=== PATIENT | male | born 1930 | race African-American/Black ===

== ENCOUNTER 2016-08-01 02:47 | Inpatient (IN) | payer MEDICARE, OTHER ==
[~2016-08-01] VITALS: Ht 175.3 cm; Wt 137.4 kg
[~2016-08-01 02:47] MED LIST: AMLO10TA2 PO; AMLO10TA4 PO; ASPI-253 PO; ATOR20TA PO; BRIN10DR OP; BUME1TAB PO; CYCL10TA2 PO; DUTA0.5C PO; EZET10TA3 PO; FINA5TAB4 PO; FURO-68 PO; FURO-69 PO; GABA-585 PO; INSU100C4 SQ; INSU100I11 SQ; INSU100V8 SQ; ISOS60TA PO; LISI-334 PO; LISI2.5T PO; METO100T11 PO; METO100T2 PO; METO10TA81 PO; METO25TA9 PO; METO50TA10 PO; NIAC500T PO; NITR0.4T6 SL; PANT20TA3 PO; PANT40TA5 PO; PRIM50TA PO; SAXA1TBM3 PO; SITA50TA PO; SPIR25TA3 PO; TAMS0.4C97 PO; TIMO5DRO5 OP; TRAV2.5D2 OP; TRAV5DRO EACHEYE
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
[2016-08-01] MEDS ORDERED: ASPIRIN 81 MG TAB.CHEW PO ONE (03:15)
[2016-08-01] MEDS ORDERED: NITROGLYCERIN SUBLINGUAL 0.4 MG BOTTLE OF 25. SL PRN (03:15)
[2016-08-01 03:20] LABS: BASO % 0 % (0-3); EOS % 1 % (0-3); HEMATOCRIT 38.8 % (39.0-53.0); HEMOGLOBIN 12.3 g/dL (13.0-17.5); LYMPH # 1.3 x10^3/uL (1.0-4.8); LYMPH % 13 % (24-48); MEAN CORPUSCULAR HEMOGLOBIN 32 pg (25-35); MEAN CORPUSCULAR HGB CONC 32 g/dL (31-37); MEAN CORPUSCULAR VOLUME 102 fL (79-100); MONO % 14 % (0-9); NEUT % 72 % (31-73); PLATELET COUNT 114 x10^3/uL (140-400); RED BLOOD COUNT 3.81 x10^6/uL (4.30-5.70); RED CELL DISTRIBUTION WIDTH 14.7 % (11.5-14.5); WHITE BLOOD COUNT 10.2 x10^3/uL (4.0-11.0)
[2016-08-01 03:37] LABS: CALCIUM 8.6 mg/dL (8.5-10.1); CREATININE 1.8 mg/dL (0.7-1.3); GFR 43.6
[2016-08-01] MEDS ORDERED: ACETAMINOPHEN 325 MG TABLET. PO PRN (04:30)
[2016-08-01] MEDS ORDERED: ONDANSETRON PF 4 MG/2 ML VIAL. IV PRN (04:30)
[2016-08-01] MEDS ORDERED: MORPHINE SULFATE 2 MG/ML DISP.SYRIN. IV PRN (04:30)
[2016-08-01] MEDS ORDERED: FUROSEMIDE 40 MG/4 ML VIAL IVP ONE (04:45)
[2016-08-01 06:37] VITALS: BP 144/77
--- NOTE | 2016-08-01 07:23 | RAD ---
Portable chest, 08/01/2016: History: Chest pain, shortness of breath Comparison is made to a study from 04/29/2016. A left-sided transvenous pacing device remains in place with 2 leads extending into the right heart. The heart is mildly enlarged. The pulmonary vascularity is normal. No pulmonary infiltrates are seen. There is no evidence of pleural fluid. IMPRESSION: 1. Mild cardiomegaly. 2. No acute abnormality is detected.
[2016-08-01 07:45] VITALS: BP 145/64
--- NOTE | 2016-08-01 08:18 | EKG ---
[facility] [address] [place] [address] Test Date: 2016-08-01 Test Time: 02:54:03 Pat Name: JAZMIN YOUNG Department: Room: Gender: M Global Category Manager: : [id number] Requested By: BERNIE WEBER Order Number: [id number] Reading MD: Measurements Intervals [place] Rate: 72 P: IL: QRS: 43 QRSD: 88 T: 50 QT: 376 QTc: 413 Interpretive Statements IRREGULAR RHYTHM, NO P-WAVE FOUND LOW LIMB LEAD VOLTAGE QRS(T) CONTOUR ABNORMALITY CONSIDER ANTEROLATERAL MYOCARDIAL DAMAGE POSSIBLY ABNORMAL ECG RI6.01 No previous ECG available for comparison
--- NOTE | 2016-08-01 09:26 | PDOC2 ---
CARDIAC CONSULT DATE OF CONSULT Date of Consult DATE: 08/01/16 TIME: 09:25 REASON FOR CONSULT Reason for Consult: CHF, chest pain, SOB REFERRING PHYSICIAN Referring Physician: Dr. Jaydon Roberson SOURCE Source: Chart review HISTORY OF PRESENT ILLNESS HISTORY OF PRESENT ILLNESS 86 year old male with a 2 day history of constant substernal chest pain radiating to the right shoulder and diminished with ASA and SL NTG given in the ER. Chronic dyspnea with change recently, though unable to qualitate change. Chest pain associated with dizziness, however, did not contact usual injury/safety hazard assessment, Dr. Fierro, who he has reportedly seen in the last week. Also with non-productive cough and body aches; unclear regarding sick exposures. EKG without acute changes, extremely poor baseline and probably SR. Troponin levels not consistent with acute VT and CXR without CHF. NT-proBNP elevated to 1755 in the setting of CKD with Cr of 1.8. 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 Endocrine: Diabetes (type II) Dermatology: No pertinent hx PAST SURGICAL HISTORY Past Surgical History: Pacemaker (brand unknown), Cholecystectomy, Other (left rib) FAMILY HISTORY Family History: Cancer, Heart Disease SOCIAL HISTORY Smoke: No ALCOHOL: none Drugs: None CURRENT MEDICATIONS CURRENT MEDICATIONS Current Medications Medications (Trade) Dose Ordered Sig/Heavenly Route PRN Reason Start Time Stop Time Status Last Admin Dose Admin Aspirin (Children'S Aspirin) 324 mg 1X ONCE PO 08/01/16 03:15 08/01/16 03:16 DC 08/01/16 03:16 Nitroglycerin (Nitrostat) 0.4 mg PRN Q5MIN PRN SL CP RATING > 1/10 08/01/16 03:15 08/02/16 03:14 08/01/16 03:17 Furosemide (Lasix) 40 mg 1X ONCE IVP 08/01/16 04:45 08/01/16 04:46 DC 08/01/16 05:54 ALLERGIES ALLERGIES: Coded Allergies: No Known Drug Allergies (Unverified , 08/02/13) ROS Review of System 14 point review with pertinent positives in HPI PHYSICAL EXAM General: Alert, Oriented X3, Cooperative, No acute distress HEENT: Atraumatic, PERRLA Lungs: Clear to auscultation Heart: Regular rate, Normal S1, Normal S2, Other (1/6 SAUL; PPM left pectoral; tele: ) Abdomen: Normal bowel sounds, Soft, No tenderness, Other (obese abdomen) Extremities: No edema, Normal pulses Skin: No rashes Neuro: Normal gait Psych/Mental Status: Mental status NL, Mood NL MUSCULOSKELETAL: No deformity VITALS VITALS Vital Signs Date Time Temp Pulse Resp B/P Pulse Ox O2 Delivery O2 Flow Rate FiO2 08/01/16 07:45 97.3 71 18 145/64 97 Nasal Cannula 2.0 97.3 LABS Lab: Laboratory Tests Test 08/01/16 03:04 08/01/16 08:08 White Blood Count 10.2x10^3/uL (4.0-11.0) Red Blood Count 3.81x10^6/uL (4.30-5.70) Hemoglobin 12.3g/dL (13.0-17.5) Hematocrit 38.8% (39.0-53.0) Mean Corpuscular Volume 102fL (79-100) Mean Corpuscular Hemoglobin 32pg (25-35) Mean Corpuscular Hemoglobin Concent 32g/dL (31-37) Red Cell Distribution Width 14.7% (11.5-14.5) Platelet Count 114x10^3/uL (140-400) Neutrophils (%) (Auto) 72% (31-73) Lymphocytes (%) (Auto) 13% (24-48) Monocytes (%) (Auto) 14% (0-9) Eosinophils (%) (Auto) 1% (0-3) Basophils (%) (Auto) 0% (0-3) Neutrophils # (Auto) 7.3x10^3uL (1.8-7.7) Lymphocytes # (Auto) 1.3x10^3/uL (1.0-4.8) Monocytes # (Auto) 1.5x10^3/uL (0.0-1.1) Eosinophils # (Auto) 0.1x10^3/uL (0.0-0.7) Basophils # (Auto) 0.0x10^3/uL (0.0-0.2) Sodium Level 147mmol/L (136-145) Potassium Level 5.0mmol/L (3.5-5.1) Chloride Level 108mmol/L (98-107) Carbon Dioxide Level 32mmol/L (21-32) Anion Gap 7 (6-14) Blood Urea Nitrogen 37mg/dL (8-26) Creatinine 1.8mg/dL (0.7-1.3) Estimated GFR (Cockcroft-Gault) 43.6 Glucose Level 166mg/dL (70-99) Calcium Level 8.6mg/dL (8.5-10.1) Troponin I Quantitative 0.024ng/mL (0.000-0.055) SX-Cyy-Q-Type Natriuretic Peptide 1755pg/mL (0-449) Glucose (Fingerstick) 183mg/dL (70-99) IMAGES IMAGES CXR without evidence of CHF EKG EKG no acute changes -- poor baseline ECHOCARDIOGRAM ECHOCARDIOGRAM 12/22/2015: TTE: Technically difficult study. Lumason echo contrast used. The left ventricular systolic function is normal. The ejection fraction is estimated at 60%. There is normal LV segmental wall motion. The left atrium is moderately dilated. Mild mitral regurgitation. Trace to mild tricuspid regurgitation. There is mild pulmonary hypertension. The PA pressure was estimated at 41 mmHg. There is no evidence of significant pericardial effusion. STRESS TEST STRESS TEST 01/26/2015: Regadenoson MPI 1. Regadenoson cardioisotope stress test showed small lateral wall infarct without any ischemia. 2. Normal left ventricular systolic function with ejection fraction calculated at 56%. 3. Low risk for cardiovascular events. ASSESSMENT/PLAN ASSESSMENT/PLAN 1. chest pain atypical - ? GERD or related to cough - will try GI cocktail EKG without acute changes and troponin levels not consistent with AMI echo done 12/2015 with preserved LV function and mild MR records requested from [facility] - Sri hold on stress testing until records obtained - pt unsure if MPI done @ [facility] in the last year also holding until influenza swab returns 2. chronic diastolic CHF CXR without CHF no crackles or LE edema NT-proBNP only 1755 (needs to be > 1800 to be diagnostic) and less than it was 04/2016 given furosemide IV In the ER resume home meds 3. PPM brand unknown records requested from [facility] 4. HTN accelerated POA, then dropped to 68 _?? resume home meds and monitor BP 5. HLD LDLs = 58 12/30/2015 continue statin therapy 6. DM, II per primary service 7. CKD, stage III-IV per primary service 8. DEYSI continue home CPAP 9. morbid obesity BMI 45 Problems: EDER KAN ACCOUNTS ADMINISTRATOR Aug 01, 2016 09:26
[2016-08-01] MEDS ORDERED: LIDO:MAALOX:DONNATAL 1:1:1 15 ML SINGLE DOSE SWSW ONE (10:00)
--- NOTE | 2016-08-01 10:42 | PDOC1 ---
History and Physical Date of Admission Date of Admission DATE: 08/01/16 TIME: 10:34 Identification/Chief Complaint Chief Complaint chest pain Source Source: Chart review, Patient History of Present Illness History of Present Illness Mr. Strickland, 86 year old male admit from ER, New sternal chest pain. pain better with ASA and nitro, but now pain is reproducible, Chronic dyspnea with change recently, though unable to qualitate change. Chest pain associated with dizziness, however, did not contact usual equipment operating engineer, Dr. Fierro, who he has reportedly seen in the last week. Also with non-productive cough and body aches; on 2 liters NC, breathing OK, BNP 1800 Past Medical History Cardiovascular: CAD (with previous PCI/stents to unknown targets), CHF ( diastolic), HTN, Hyperlipidemia, Other (PPM - brand unkown and diagnosis for implantation unknown) Pulmonary: COPD, Other (obesity hypoventilation syndrome) CENTRAL NERVOUS SYSTEM: Dementia, Vertigo GI: GERD, Other (morbid obesity with BMI of 45) Heme/Onc: Anemia NOS Hepatobiliary: No pertinent hx Psych: No pertinent hx Musculoskeletal: Osteoarthritis Rheumatologic: No pertinent hx Infectious disease: No pertinent hx ENT: No pertinent hx Renal/: 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 Endocrine: Diabetes (type II) Dermatology: No pertinent hx Past Surgical History Past Surgical History: Pacemaker (brand unknown), Cholecystectomy, Other (left rib) Family History Family History: Cancer, Heart Disease Social History Smoke: No ALCOHOL: none Drugs: None Current Problem List Problem List Problems Medical Problems: (1) Chest pain Status: Acute (2) Chest pain Status: Acute (3) CHF (congestive heart failure) Status: Acute (4) SOB (shortness of breath) Status: Acute Problems: Current Medications Current Medications Current Medications Aspirin (Children'S Aspirin) 324 mg 1X ONCE PO Last administered on 08/01/16 03:16; Start 08/01/16 at 03:15; Stop 08/01/16 at 03:16; Status DC Nitroglycerin (Nitrostat) 0.4 mg PRN Q5MIN PRN SL CP RATING > 1/10 Last administered on 08/01/16 03:17; Start 08/01/16 at 03:15; Stop 08/02/16 at 03:14 Furosemide (Lasix) 40 mg 1X ONCE IVP Last administered on 08/01/16t 05:54; Start 08/01/16 at 04:45; Stop 08/01/16 at 04:46; Status DC Ondansetron HCl (Zofran) 4 mg PRN Q8HRS PRN IV NAUSEA/VOMITING; Start 08/01/16 at 04:30; Stop 08/02/16 at 04:29 Morphine Sulfate 2 mg PRN Q2HR PRN IV PAIN; Start 08/01/16 at 04:30; Stop 08/02 at 04:29 Acetaminophen (Tylenol) 650 mg PRN Q4HRS PRN PO FEVER; Start 08/01/16 at 04:30 ; Stop 08/02/16 at 04:29 Multi-Ingredient Mouthwash/Gargle (Gi Cocktail Single Dose) 15 ml 1X ONCE SWSW ; Start 08/01/16 at 10:00; Stop 08/01/16 at 10:01; Status DC Active Scripts Active Amlodipine Besylate 10 Mg Tablet 10 Mg PO DAILY Reported Bumetanide 1 Mg Tablet 1 Tab PO BID Gabapentin 100 Mg Capsule 100 Mg PO TID Januvia (Sitagliptin Phosphate) 50 Mg Tablet 25 Mg PO DAILY Metoprolol Tartrate 100 Mg Tablet 1 Tab PO BID Niaspan (Niacin) 500 Mg Tab.er.24h 100 Mg PO HS Travatan Z (Travoprost) 5 Ml Drops 1 Drop EACHEYE QHS Humalog (Insulin Lispro) 100 Unit/1 Ml Insuln.pen 35 Unit SQ TIDAC Lantus (Insulin Glargine,Hum.rec.anlog) 100 Unit/1 Ml Vial 45 Unit SQ HS Primidone 50 Mg Tablet 200 Mg PO HS Pantoprazole Sodium 40 Mg Tablet.dr 1 Tab PO DAILY Lisinopril 20 Mg Tablet 1 Tab PO DAILY Finasteride 5 Mg Tablet 1 Tab PO DAILY Lipitor (Atorvastatin Calcium) 20 Mg Tablet 20 Mg PO Azopt (Brinzolamide) 10 Ml Drops.susp 10 Ml OP BID PRN Flomax (Tamsulosin Hcl) 0.4 Mg Cap.er.24h 0.4 Mg PO Zetia (Ezetimibe) 10 Mg Tablet 10 Mg PO Ecotrin (Aspirin) 81 Mg Tablet.dr 81 Mg PO Allergies Allergies: Coded Allergies: No Known Drug Allergies (Unverified , 08/02/13) ROS General: No: Appetite, Chills, Fatigue, Malaise, Night Sweats, Other PSYCHOLOGICAL ROS: No: Anxiety, Behavioral Disorder, Concentration difficultie , Decreased libido, Depression, Disorientation, Hallucinations, Hostility, Irritablity, Memory difficulties, Mood Swings, Obsessive thoughts, Other, Physical abuse, Sexual abuse, Sleep disturbances, Suicidal ideation Eyes: No Blurry vision, No Decreased vision, No Double vision, No Dry eyes, No Excessive tearing, No Eye Pain, No Itchy Eyes, No Loss of vision, No Other, No Photophobia, No Scotomata, No Uses contacts, No Uses glasses HEENT: No: Epistaxis, Heacaches, Hearing change, Nasal congestion, Nasal discharge, Oral lesions, Other, Sinus pain, Sneezing, Snoring, Sore Throat, Tinnitus, Vertigo, Visual Changes, Vocal changes ALLERGY AND IMMUNOLOGY: No: Hives, Insect Bite Sensitivity, Itchy/Watery Eyes, Nasal Congestion, Other, Post Nasal Drip, Seasonal Allergies ENDOCRINE: No: Breast Changes, Galactorrhea, Hair Pattern Changes, Hot Flashes , Malaise/lethargy, Mood Swings, Other, Palpitations, Polydipsia/polyuria, Skin Changes, Temperature Intolerance, Unexpected Weight Changes Respiratory: No: Cough, Hemoptysis, Orthopnea, Other, Pleuritic Pain, SOB with excertion, Shortness of breath, Sputum Changes, Stridor, Tachypnea, Wheezing Gastrointestinal: Yes Nausea, No Abdominal Pain, No Constipation, No Diarrhea, No Hematochezia, No Melena, No Other, No Vomiting Genitourinary: No , No , No , No , No , No , No , No Discharge, No Dysuria, No Flank Pain, No Frequency, No Hematuria, No Incontinence, No Other, No Pain, No Retention, No Urgency Musculoskeletal: Yes Gait Disturbance, Yes Joint Pain, Yes Joint Stiffness, Yes Joint Swelling, No Muscle Pain, No Muscular Weakness, No Other, No Pain In:, No Swelling In: Neurological: No Behavorial Changes, No Bowel/Bladder ControlChng, No Confusion , No Dizziness, No Gait Disturbance, No Headaches, No Impaired Coord/balance, No Memory Loss, No Numbness/Tingling, No Other, No Seizures, No Speech Problems , No Tremors, No Visual Changes, No Weakness Skin: No Acne, No Dry Skin, No Eczema, No Hair Changes, No Lumps, No Mole Changes, No Mottling, No Nail Changes, No Other, No Pruritus, No Rash, No Skin Lesion Changes Physical Exam General: Alert, Oriented X3, Cooperative, mild distress HEENT: Atraumatic, PERRLA, EOMI Lungs: Clear to auscultation, Normal air movement, Other (tender to palp, mid right sternum) Abdomen: Normal bowel sounds Rectal Exam: not examined Extremities: No clubbing, No cyanosis Skin: No rashes Neuro: Normal gait, Normal speech, Sensation intact Psych/Mental Status: Mental status NL, Mood NL Vitals Vitals Vital Signs Date Time Temp Pulse Resp B/P Pulse Ox O2 Delivery O2 Flow Rate FiO2 08/01/16 07:45 97.3 71 18 145/64 97 Nasal Cannula 2.0 97.3 Labs Labs Laboratory Tests Test 08/01/16 03:04 08/01/16 08:08 White Blood Count 10.2x10^3/uL (4.0-11.0) Red Blood Count 3.81x10^6/uL (4.30-5.70) Hemoglobin 12.3g/dL (13.0-17.5) Hematocrit 38.8% (39.0-53.0) Mean Corpuscular Volume 102fL (79-100) Mean Corpuscular Hemoglobin 32pg (25-35) Mean Corpuscular Hemoglobin Concent 32g/dL (31-37) Red Cell Distribution Width 14.7% (11.5-14.5) Platelet Count 114x10^3/uL (140-400) Neutrophils (%) (Auto) 72% (31-73) Lymphocytes (%) (Auto) 13% (24-48) Monocytes (%) (Auto) 14% (0-9) Eosinophils (%) (Auto) 1% (0-3) Basophils (%) (Auto) 0% (0-3) Neutrophils # (Auto) 7.3x10^3uL (1.8-7.7) Lymphocytes # (Auto) 1.3x10^3/uL (1.0-4.8) Monocytes # (Auto) 1.5x10^3/uL (0.0-1.1) Eosinophils # (Auto) 0.1x10^3/uL (0.0-0.7) Basophils # (Auto) 0.0x10^3/uL (0.0-0.2) Sodium Level 147mmol/L (136-145) Potassium Level 5.0mmol/L (3.5-5.1) Chloride Level 108mmol/L (98-107) Carbon Dioxide Level 32mmol/L (21-32) Anion Gap 7 (6-14) Blood Urea Nitrogen 37mg/dL (8-26) Creatinine 1.8mg/dL (0.7-1.3) Estimated GFR (Cockcroft-Gault) 43.6 Glucose Level 166mg/dL (70-99) Calcium Level 8.6mg/dL (8.5-10.1) Troponin I Quantitative 0.024ng/mL (0.000-0.055) UK-Tjg-A-Type Natriuretic Peptide 1755pg/mL (0-449) Glucose (Fingerstick) 183mg/dL (70-99) Laboratory Tests Test 08/01/16 03:04 08/01/16 08:08 White Blood Count 10.2x10^3/uL (4.0-11.0) Red Blood Count 3.81x10^6/uL (4.30-5.70) Hemoglobin 12.3g/dL (13.0-17.5) Hematocrit 38.8% (39.0-53.0) Mean Corpuscular Volume 102fL (79-100) Mean Corpuscular Hemoglobin 32pg (25-35) Mean Corpuscular Hemoglobin Concent 32g/dL (31-37) Red Cell Distribution Width 14.7% (11.5-14.5) Platelet Count 114x10^3/uL (140-400) Neutrophils (%) (Auto) 72% (31-73) Lymphocytes (%) (Auto) 13% (24-48) Monocytes (%) (Auto) 14% (0-9) Eosinophils (%) (Auto) 1% (0-3) Basophils (%) (Auto) 0% (0-3) Neutrophils # (Auto) 7.3x10^3uL (1.8-7.7) Lymphocytes # (Auto) 1.3x10^3/uL (1.0-4.8) Monocytes # (Auto) 1.5x10^3/uL (0.0-1.1) Eosinophils # (Auto) 0.1x10^3/uL (0.0-0.7) Basophils # (Auto) 0.0x10^3/uL (0.0-0.2) Sodium Level 147mmol/L (136-145) Potassium Level 5.0mmol/L (3.5-5.1) Chloride Level 108mmol/L (98-107) Carbon Dioxide Level 32mmol/L (21-32) Anion Gap 7 (6-14) Blood Urea Nitrogen 37mg/dL (8-26) Creatinine 1.8mg/dL (0.7-1.3) Estimated GFR (Cockcroft-Gault) 43.6 Glucose Level 166mg/dL (70-99) Calcium Level 8.6mg/dL (8.5-10.1) Troponin I Quantitative 0.024ng/mL (0.000-0.055) OQ-Jxr-D-Type Natriuretic Peptide 1755pg/mL (0-449) Glucose (Fingerstick) 183mg/dL (70-99) VTE Prophylaxis Ordered VTE Prophylaxis Devices: Yes VTE Pharmacological Prophylaxi: Yes Assessment/Plan Assessment/Plan 1. chest pain unsure of History 0 has likey ateriosclerosis per history, u atypical - and reproducible, tx GERD - will try GI cocktail EKG without acute changes and troponin levels OK - CV following, records sent 2. chronic diastolic CHF, hypoxia stable, chronic hypoxic respiratory failure no crackles or LE edema NT-proBNP elevated, not acute change, IV lasix given, LE edema he reports stable 3. CKD 3, he reports follwing outpatient with Dr. Live, per history sounds stable 4. HTN, hyperlipids, DM2, - home meds, wide variances reported, unsure if reliabel due to obesity and age 5. DEYSI continue home CPAP 6. morbid obesity BMI 45 DONNA SANDOVAL MD Aug 01, 2016 10:42
--- NOTE | 2016-08-01 10:45 | ACF ---
Admit Criteria Forms Admit Criteria Forms Admit Criteria Forms HEART FAILURE: COMMON COMPLICATIONS Clinical Indications for Inpatient Care (Place 'X' for any and all applicable criteria): Ongoing inpatient care may be indicated for heart failure with ANY ONE of the following (1)(2)(3)(4)(5): [ ]I. Ongoing need for care for primary condition requiring frequent therapy adjustments because of changes in cardiac function (eg, drug dosage changes for drugs that are renally metabolized) [ ]II. New-onset heart failure [ ]III. Heart failure with decreased urine output not responsive to attempts to optimize volume status [ ]IV. Acute cardiac ischemia causing or associated with failure [X]V. Complications of heart failure, including ANY ONE of the following: [ ]a) Pericardial effusion [ ]b) Symptomatic pleural effusion [ ]c) O2 saturation <90% or PO2 < 60 mm Hg (8.0 kPa) on room air or require baseline supplemental O2 [ ]d) Tachypnea [X]e) Dyspnea [ ]f) Syncope [ ]g) Change in mental status [ ]h) Acute renal insufficiency that is severe (reduction of more than 50% in estimated glomerular filtration rate from baseline) or progressive reduction of more than 25% in estimated glomerular filtration rate from baseline, with creatinine continuing to rise) [ ]i) Hemodynamic instability [ ]j) Anasarca [ ]k) Clinically significant metabolic abnormalities due to heart failure (eg, new-onset metabolic acidosis) Extended stay beyond goal length of stay for primary condition may be needed until ALL of the following are present(1)(3): [ ]a) Stable and effective diuretic regimen established (or patient on stable dialysis regimen if in chronic renal failure) [ ]b) Breathing comfortably at rest [ ]c) Saturation of arterial oxygen greater than 90% or at acceptable baseline [ ]d) Pulmonary edema absent or improved [ ]e) Hemodynamic stability [ ]f) Volume status acceptable on oral medication [ ]g) Peripheral or sacral edema absent or improved [ ]h) Renal function stable and manageable at a lower level of care [ ]i) Complications (eg, pleural effusion) resolved or manageable at a lower level of care [ ]j) Patient or caregiver has received written discharge instructions or educational material addressing activity level, diet, discharge medications, follow-up appointment, weight monitoring, and what to do if symptoms worsen The original [employer] content created by [employer] has been revised. The portions of the content which have been revised are identified through the use of italic text or in bold, and [facility] has neither reviewed nor approved the modified material.All other unmodified content is copyright [facility] [employer]. Please see references footnoted in the original [facility] [email or web address] edition 2016 LETICIA ROBLES Aug 01, 2016 10:45
[2016-08-01 11:06] LABS: OBC FLU VALID
[2016-08-01 11:10] VITALS: BP 151/56
[2016-08-01] MEDS ORDERED: INSULIN ASPART 300 UNITS/3 ML INSULN.PEN SQ STA (12:39)
[2016-08-01] MEDS: BUMETANIDE 1 MG TABLET PO SCH (13:11)
[2016-08-01] MEDS: GABAPENTIN 100 MG CAPSULE. PO SCH ×2 (13:12→21:00)
[2016-08-01] MEDS: LISINOPRIL 20 MG TABLET PO SCH (13:12)
[2016-08-01] MEDS: ASPIRIN ENTERIC COATED 81 MG TABLET.DR. PO SCH (13:13)
[2016-08-01] MEDS: FINASTERIDE 5 MG TABLET PO SCH (13:13)
[2016-08-01] MEDS: PANTOPRAZOLE 40 MG TABLET. PO SCH (13:13)
[2016-08-01] MEDS: METOPROLOL TART IMMED RELEASE 50 MG TABLET PO SCH ×2 (13:14→20:59)
[2016-08-01] MEDS: LINAGLIPTIN 5 MG TABLET PO SCH (13:14)
[2016-08-01] MEDS: TAMSULOSIN 0.4 MG CAP.ER.24H. PO SCH (13:14)
[2016-08-01] MEDS: EZETIMIBE 10 MG TABLET PO SCH (13:15)
[2016-08-01] MEDS: AMLODIPINE BESYLATE 10 MG TABLET PO SCH (13:15)
[2016-08-01] MEDS: LIDOCAINE (700MG/PATCH) PATCH. TD SCH (13:16)
[2016-08-01] MEDS ORDERED: DORZOLAMIDE 2% OPHTH SOLUTION 10ML BOTTLE. OU PRN (14:00)
--- NOTE | 2016-08-01 15:12 | PDOC2 ---
CONSULT Date of Consult Date of Consult DATE: 08/01/16 TIME: 15:07 Reason for Consult Reason for Consult: [place] Referring Physician Referring Physician: RITA Identification/Chief Complaint Chief Complaint CHEST PAIN Source Source: Chart review, Patient History of Present Illness Reason for Visit: THIS IS AN 86 YR OLD ADMITTED WITH CHEST PAIN. CURRENTLY UNDERGOING CARDIOLOGY EVALUATION FOR THIS. HIS CR WAS 1.8. OLD RECORDS SHOWED A CR OF 1.9-2.2 OVER THE LAST 2 YEARS C/W STAGE 3 TO 4 CKD. NO HX OF ANY KIDNEY OR BLADDER SURGERIES HEMATURIA DYSURIA OR FREQUENCY NOTED. MILD HYPERNATREMIA IS ALSO NOTED. 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 Endocrine: Diabetes (type II) Dermatology: No pertinent hx Past Surgical History Past Surgical History: Pacemaker (brand unknown), Cholecystectomy, Other (left rib) Family History Family History: Cancer, Heart Disease Social History No ALCOHOL: none Drugs: None Lives: Alone Domestic Violence: Neg Current Problem List Problem List Problems Medical Problems: (1) Chest pain Status: Acute (2) Chest pain Status: Acute (3) CHF (congestive heart failure) Status: Acute (4) SOB (shortness of breath) Status: Acute Current Medications Current Medications Current Medications Aspirin (Children'S Aspirin) 324 mg 1X ONCE PO Last administered on 08/01/16 03:16; Start 08/01/16 at 03:15; Stop 08/01/16 at 03:16; Status DC Nitroglycerin (Nitrostat) 0.4 mg PRN Q5MIN PRN SL CP RATING > 1/10 Last administered on 08/01/16 03:17; Start 08/01/16 at 03:15; Stop 08/02/16 at 03:14 Furosemide (Lasix) 40 mg 1X ONCE IVP Last administered on 08/01/16 05:54; Start 08/01/16 at 04:45; Stop 08/01/16 at 04:46; Status DC Ondansetron HCl (Zofran) 4 mg PRN Q8HRS PRN IV NAUSEA/VOMITING; Start 08/01/16 at 04:30; Stop 08/02/16 at 04:29 Morphine Sulfate 2 mg PRN Q2HR PRN IV PAIN; Start 08/01/16 at 04:30; Stop 08/02 at 04:29 Acetaminophen (Tylenol) 650 mg PRN Q4HRS PRN PO FEVER; Start 08/01/16 at 04:30 ; Stop 08/02/16 at 04:29 Multi-Ingredient Mouthwash/Gargle (Gi Cocktail Single Dose) 15 ml 1X ONCE SWSW Last administered on 08/01/16 13:16; Start 08/01/16 at 10:00; Stop 08/01/16 at 10:01; Status DC Lidocaine (Lidoderm) 1 patch DAILY TD Last administered on 08/01/16 13:16; Start 08/01/16 at 11:00 Amlodipine Besylate (Norvasc) 10 mg DAILY PO Last administered on 08/01/16 13: 15; Start 08/01/16 at 13:00 Aspirin (Ecotrin) 81 mg [id number] PO Last administered on 08/01/16 13:13; Start 08/01/16 at 13:00 Atorvastatin Calcium (Lipitor) 20 mg QHS PO ; Start 08/01/16 at 21:00 Bumetanide (Bumex) 1 mg BID92 PO Last administered on 08/01/16 13:11; Start at 14:00 EZETIMIBE (Zetia) 10 mg DAILY PO Last administered on 08/01/16 13:15; Start at 13:00 Finasteride (Proscar) 5 mg DAILY PO Last administered on 08/01/16 13:13; Start 08/01/16 at 13:00 Gabapentin (Neurontin) 100 mg TID PO Last administered on 08/01/16 13:12; Start 08/01/16 at 14:00 Lisinopril (Prinivil) 20 mg DAILY PO Last administered on 08/01/16 13:12; Start 08/01/16 at 13:00 Niacin (Slo-Niacin) 1,000 mg HS PO ; Start 08/01/16 at 21:00 Pantoprazole Sodium (Protonix) 40 mg DAILY PO Last administered on 08/01/16 13 :13; Start 08/01/16 at 13:00 Primidone (Mysoline) 200 mg HS PO ; Start 08/01/16 at 21:00 Tamsulosin HCl (Flomax) 0.4 mg DAILY PO Last administered on 08/01/16 13:14; Start 08/01/16 at 13:00 Dorzolamide HCl (Trusopt) 1 drop PRN BID PRN OU OPTH PRESSURE; Start 08/01/16 at 14:00 Insulin Detemir (Levemir) 45 units QHS SQ ; Start 08/01/16 at 21:00 Insulin Aspart (Novolog) 35 units TIDAC SQ ; Start 08/01/16 at 16:30 Metoprolol Tartrate (Lopressor) 100 mg BID PO Last administered on 08/01/16 13 :14; Start 08/01/16 at 13:00 Linagliptin (Tradjenta) 5 mg DAILY PO Last administered on 08/01/16 13:14; Start 08/01/16 at 13:00 Latanoprost (Xalatan) 1 drop QHS OU ; Start 08/01/16 at 21:00 Insulin Aspart (Novolog) 35 units 1X STAT SQ Last administered on 08/01/16 13 :13; Start 08/01/16 at 12:39; Stop 08/01/16 at 12:43; Status DC Active Scripts Active Amlodipine Besylate 10 Mg Tablet 10 Mg PO DAILY Reported Bumetanide 1 Mg Tablet 1 Tab PO BID Gabapentin 100 Mg Capsule 100 Mg PO TID Januvia (Sitagliptin Phosphate) 50 Mg Tablet 25 Mg PO DAILY Metoprolol Tartrate 100 Mg Tablet 1 Tab PO BID Niaspan (Niacin) 500 Mg Tab.er.24h 100 Mg PO HS Travatan Z (Travoprost) 5 Ml Drops 1 Drop EACHEYE QHS Humalog (Insulin Lispro) 100 Unit/1 Ml Insuln.pen 35 Unit SQ TIDAC Lantus (Insulin Glargine,Hum.rec.anlog) 100 Unit/1 Ml Vial 45 Unit SQ HS Primidone 50 Mg Tablet 200 Mg PO HS Pantoprazole Sodium 40 Mg Tablet.dr 1 Tab PO DAILY Lisinopril 20 Mg Tablet 1 Tab PO DAILY Finasteride 5 Mg Tablet 1 Tab PO DAILY Lipitor (Atorvastatin Calcium) 20 Mg Tablet 20 Mg PO Azopt (Brinzolamide) 10 Ml Drops.susp 10 Ml OP BID PRN Flomax (Tamsulosin Hcl) 0.4 Mg Cap.er.24h 0.4 Mg PO Zetia (Ezetimibe) 10 Mg Tablet 10 Mg PO Ecotrin (Aspirin) 81 Mg Tablet.dr 81 Mg PO Allergies Allergies: Coded Allergies: No Known Drug Allergies (Unverified , 08/02/13) ROS General: YES: Appetite, Fatigue, Malaise PSYCHOLOGICAL ROS: YES: Anxiety Eyes: Yes Decreased vision HEENT: YES: Visual Changes Respiratory: YES: Cough Cardiovascular: yes Chest Pain Gastrointestinal: Yes Constipation Genitourinary: YES Other Musculoskeletal: Yes Muscular Weakness Neurological: Yes Weakness Skin: Yes Dry Skin Physical Exam General: Alert, Oriented X3, Cooperative, No acute distress HEENT: Atraumatic, PERRLA Lungs: Clear to auscultation Heart: Regular rate, Normal S1, Normal S2, No murmurs Abdomen: Normal bowel sounds, Soft, No tenderness Neuro: Normal speech Psych/Mental Status: Mental status NL, Mood NL MUSCULOSKELETAL: No deformity, No swelling Vitals VITALS Vital Signs Date Time Temp Pulse Resp B/P Pulse Ox O2 Delivery O2 Flow Rate FiO2 08/01/16 13:15 73 151/56 08/01/16 11:10 97.9 18 98 Nasal Cannula 2.0 97.9 Labs Labs Laboratory Tests Test 08/01/16 03:04 08/01/16 08:08 08/01/16 10:15 08/01/16 10:25 White Blood Count 10.2x10^3/uL (4.0-11.0) Red Blood Count 3.81x10^6/uL (4.30-5.70) Hemoglobin 12.3g/dL (13.0-17.5) Hematocrit 38.8% (39.0-53.0) Mean Corpuscular Volume 102fL (79-100) Mean Corpuscular Hemoglobin 32pg (25-35) Mean Corpuscular Hemoglobin Concent 32g/dL (31-37) Red Cell Distribution Width 14.7% (11.5-14.5) Platelet Count 114x10^3/uL (140-400) Neutrophils (%) (Auto) 72% (31-73) Lymphocytes (%) (Auto) 13% (24-48) Monocytes (%) (Auto) 14% (0-9) Eosinophils (%) (Auto) 1% (0-3) Basophils (%) (Auto) 0% (0-3) Neutrophils # (Auto) 7.3x10^3uL (1.8-7.7) Lymphocytes # (Auto) 1.3x10^3/uL (1.0-4.8) Monocytes # (Auto) 1.5x10^3/uL (0.0-1.1) Eosinophils # (Auto) 0.1x10^3/uL (0.0-0.7) Basophils # (Auto) 0.0x10^3/uL (0.0-0.2) Sodium Level 147mmol/L (136-145) Potassium Level 5.0mmol/L (3.5-5.1) Chloride Level 108mmol/L (98-107) Carbon Dioxide Level 32mmol/L (21-32) Anion Gap 7 (6-14) Blood Urea Nitrogen 37mg/dL (8-26) Creatinine 1.8mg/dL (0.7-1.3) Estimated GFR (Cockcroft-Gault) 43.6 Glucose Level 166mg/dL (70-99) Calcium Level 8.6mg/dL (8.5-10.1) Troponin I Quantitative 0.024ng/mL (0.000-0.055) 0.019ng/mL (0.000-0.055) EV-Kdx-D-Type Natriuretic Peptide 1755pg/mL (0-449) Glucose (Fingerstick) 183mg/dL (70-99) Influenza Type A Antigen Negative (NEGATIVE) Influenza Type B Antigen Negative (NEGATIVE) Test 08/01/16 11:21 Glucose (Fingerstick) 279mg/dL (70-99) Laboratory Tests Test 08/01/16 03:04 08/01/16 08:08 08/01/16 10:15 08/01/16 10:25 White Blood Count 10.2x10^3/uL (4.0-11.0) Red Blood Count 3.81x10^6/uL (4.30-5.70) Hemoglobin 12.3g/dL (13.0-17.5) Hematocrit 38.8% (39.0-53.0) Mean Corpuscular Volume 102fL (79-100) Mean Corpuscular Hemoglobin 32pg (25-35) Mean Corpuscular Hemoglobin Concent 32g/dL (31-37) Red Cell Distribution Width 14.7% (11.5-14.5) Platelet Count 114x10^3/uL (140-400) Neutrophils (%) (Auto) 72% (31-73) Lymphocytes (%) (Auto) 13% (24-48) Monocytes (%) (Auto) 14% (0-9) Eosinophils (%) (Auto) 1% (0-3) Basophils (%) (Auto) 0% (0-3) Neutrophils # (Auto) 7.3x10^3uL (1.8-7.7) Lymphocytes # (Auto) 1.3x10^3/uL (1.0-4.8) Monocytes # (Auto) 1.5x10^3/uL (0.0-1.1) Eosinophils # (Auto) 0.1x10^3/uL (0.0-0.7) Basophils # (Auto) 0.0x10^3/uL (0.0-0.2) Sodium Level 147mmol/L (136-145) Potassium Level 5.0mmol/L (3.5-5.1) Chloride Level 108mmol/L (98-107) Carbon Dioxide Level 32mmol/L (21-32) Anion Gap 7 (6-14) Blood Urea Nitrogen 37mg/dL (8-26) Creatinine 1.8mg/dL (0.7-1.3) Estimated GFR (Cockcroft-Gault) 43.6 Glucose Level 166mg/dL (70-99) Calcium Level 8.6mg/dL (8.5-10.1) Troponin I Quantitative 0.024ng/mL (0.000-0.055) 0.019ng/mL (0.000-0.055) DR-Gdg-S-Type Natriuretic Peptide 1755pg/mL (0-449) Glucose (Fingerstick) 183mg/dL (70-99) Influenza Type A Antigen Negative (NEGATIVE) Influenza Type B Antigen Negative (NEGATIVE) Test 08/01/16 11:21 Glucose (Fingerstick) 279mg/dL (70-99) Assessment/Plan Assessment/Plan IMP CKD STAGE 3 TO 4-CR IS BETTER THAN HIS USUAL 1.9-2.2 RANGE THAT HAS BEEN RECORDED OP CHEST PAIN HYPERNATREMIA PLAN HYPOTONIC SALINE CARDIOLOGY EVAL AND TX OK TO CONT BUMEX AND NIA-I FOR NOW MAVERICK TORIBIO MD Aug 01, 2016 15:12
[2016-08-01 15:40] VITALS: BP 184/80
[2016-08-01] MEDS: INSULIN ASPART 300 UNITS/3 ML INSULN.PEN SQ SCH (17:34)
[2016-08-01] MEDS: IV 1/2 NORMAL SALINE 1,000 ML IV SCH (17:42)
[2016-08-01 19:05] VITALS: BP 156/59
[2016-08-01] MEDS: ATORVASTATIN CALCIUM 20 MG TABLET PO SCH (20:59)
[2016-08-01] MEDS: PRIMIDONE 50 MG TABLET PO SCH (20:59)
[2016-08-01] MEDS: LATANOPROST 0.005% OPHTH SOLUTION 2.5ML BOTTLE. OU SCH (20:59)
[2016-08-01] MEDS: NIACIN ER 500 MG TABLET.ER PO SCH (20:59)
[2016-08-01] MEDS ORDERED: INSULIN DETEMIR 300 UNITS/3 ML INSULN.PEN. SQ SCH (21:00)
[2016-08-01] MEDS: INSULIN DETEMIR 300 UNITS/3 ML INSULN.PEN. SQ SCH (21:04)
[2016-08-01 23:44] VITALS: BP 125/51
[2016-08-02 03:41] VITALS: BP 138/52
[2016-08-02 06:04] LABS: BASO % 0 % (0-3); EOS % 1 % (0-3); HEMATOCRIT 39.9 % (39.0-53.0); HEMOGLOBIN 12.8 g/dL (13.0-17.5); LYMPH # 1.4 x10^3/uL (1.0-4.8); LYMPH % 13 % (24-48); MEAN CORPUSCULAR HEMOGLOBIN 32 pg (25-35); MEAN CORPUSCULAR HGB CONC 32 g/dL (31-37); MEAN CORPUSCULAR VOLUME 101 fL (79-100); MONO % 18 % (0-9); NEUT % 69 % (31-73); PLATELET COUNT 114 x10^3/uL (140-400); RED BLOOD COUNT 3.96 x10^6/uL (4.30-5.70); RED CELL DISTRIBUTION WIDTH 14.4 % (11.5-14.5); WHITE BLOOD COUNT 11.5 x10^3/uL (4.0-11.0)
[2016-08-02] MEDS: IV 1/2 NORMAL SALINE 1,000 ML IV SCH ×2 (06:07→17:55)
[2016-08-02 06:19] LABS: ALBUMIN 3.2 g/dL (3.4-5.0); ALBUMIN/GLOBULIN RATIO 0.8 (1.0-1.7); CALCIUM 8.7 mg/dL (8.5-10.1); CREATININE 1.7 mg/dL (0.7-1.3); GFR 46.6; POTASSIUM 4.9 mmol/L (3.5-5.1); TOTAL BILIRUBIN 0.4 mg/dL (0.2-1.0)
[2016-08-02 07:00] VITALS: BP 160/73
[2016-08-02] MEDS: ASPIRIN ENTERIC COATED 81 MG TABLET.DR. PO SCH (08:00)
[2016-08-02] MEDS: LISINOPRIL 20 MG TABLET PO SCH (09:00)
[2016-08-02] MEDS: FINASTERIDE 5 MG TABLET PO SCH (09:00)
[2016-08-02] MEDS: AMLODIPINE BESYLATE 10 MG TABLET PO SCH (09:00)
[2016-08-02] MEDS: TAMSULOSIN 0.4 MG CAP.ER.24H. PO SCH (09:00)
[2016-08-02] MEDS: BUMETANIDE 1 MG TABLET PO SCH ×2 (09:00→13:04)
[2016-08-02] MEDS: LIDOCAINE (700MG/PATCH) PATCH. TD SCH ×2 (09:00→13:04)
[2016-08-02] MEDS: METOPROLOL TART IMMED RELEASE 50 MG TABLET PO SCH ×2 (09:00→21:27)
[2016-08-02] MEDS: GABAPENTIN 100 MG CAPSULE. PO SCH ×3 (09:00→21:27)
[2016-08-02] MEDS: EZETIMIBE 10 MG TABLET PO SCH (09:00)
[2016-08-02] MEDS: LINAGLIPTIN 5 MG TABLET PO SCH (09:00)
[2016-08-02] MEDS: PANTOPRAZOLE 40 MG TABLET. PO SCH (09:00)
[2016-08-02] MEDS: INSULIN ASPART 300 UNITS/3 ML INSULN.PEN SQ SCH ×3 (09:05→17:44)
[2016-08-02] MEDS ORDERED: REGADENOSON 0.4 MG/5 ML DISP.SYRIN. IV ONE (09:30)
[2016-08-02 11:00] VITALS: BP 156/64
--- NOTE | 2016-08-02 12:25 | PDOC ---
Renal-Progress Notes Subjective Notes Notes NONE History of Present Illness Hx of present illness NO CHANGE Vitals Vitals Vital Signs Date Time Temp Pulse Resp B/P Pulse Ox O2 Delivery O2 Flow Rate FiO2 08/02/16 11:00 98.6 82 18 156/64 96 Nasal Cannula 2.0 98.6 Weight Weight [ ] I.O. Intake and Output Intake and Output 08/02/16 07:00 Intake Total 1200 ml Output Total 2700 ml Balance -1500 ml Intake Oral 1200 ml Output Urine Total 2700 ml # Voids 2 Labs Labs Laboratory Tests Test 08/01/16 16:13 08/01/16 16:39 08/01/16 20:58 08/02/16 04:24 Troponin I Quantitative 0.034ng/mL (0.000-0.055) Glucose (Fingerstick) 286mg/dL (70-99) 129mg/dL (70-99) Sodium Level 146mmol/L (136-145) Potassium Level 4.9mmol/L (3.5-5.1) Chloride Level 106mmol/L (98-107) Carbon Dioxide Level 35mmol/L (21-32) Anion Gap 5 (6-14) Blood Urea Nitrogen 27mg/dL (8-26) Creatinine 1.7mg/dL (0.7-1.3) Estimated GFR (Cockcroft-Gault) 46.6 BUN/Creatinine Ratio 16 (6-20) Glucose Level 110mg/dL (70-99) Calcium Level 8.7mg/dL (8.5-10.1) Total Bilirubin 0.4mg/dL (0.2-1.0) Aspartate Amino Transf (AST/SGOT) 18U/L (15-37) Alanine Aminotransferase (ALT/SGPT) 25U/L (16-63) Alkaline Phosphatase 57U/L (46-116) Total Protein 7.0g/dL (6.4-8.2) Albumin 3.2g/dL (3.4-5.0) Albumin/Globulin Ratio 0.8 (1.0-1.7) Test 08/02/16 04:29 08/02/16 07:45 08/02/16 11:53 White Blood Count 11.5x10^3/uL (4.0-11.0) Red Blood Count 3.96x10^6/uL (4.30-5.70) Hemoglobin 12.8g/dL (13.0-17.5) Hematocrit 39.9% (39.0-53.0) Mean Corpuscular Volume 101fL (79-100) Mean Corpuscular Hemoglobin 32pg (25-35) Mean Corpuscular Hemoglobin Concent 32g/dL (31-37) Red Cell Distribution Width 14.4% (11.5-14.5) Platelet Count 114x10^3/uL (140-400) Neutrophils (%) (Auto) 69% (31-73) Lymphocytes (%) (Auto) 13% (24-48) Monocytes (%) (Auto) 18% (0-9) Eosinophils (%) (Auto) 1% (0-3) Basophils (%) (Auto) 0% (0-3) Neutrophils # (Auto) 7.9x10^3uL (1.8-7.7) Lymphocytes # (Auto) 1.4x10^3/uL (1.0-4.8) Monocytes # (Auto) 2.0x10^3/uL (0.0-1.1) Eosinophils # (Auto) 0.1x10^3/uL (0.0-0.7) Basophils # (Auto) 0.0x10^3/uL (0.0-0.2) Glucose (Fingerstick) 153mg/dL (70-99) 297mg/dL (70-99) Review of Systems Constitutional: yes: alert, no symptom reported, oriented, weakness Pulmonary: Yes no symptom reported Gastrointestional: Yes: no symptom reported Genitourinary: Yes: no symptom reported Musculoskeletal: Yes: muscle stiffness Psychiatric/Neurological: Yes: no symptom reported Physical Exam General Appearance: no apparent distress Skin: warm Respiratory: decreased breath sounds Heart: S1S2, RRR Abdomen: soft, bowel sounds present Extremities: pulses present Neurology: alert Musculoskeletal: Osteoarthritis Assessment Assessment IMP CKD STAGE 3 TO 4-CR STABLE AT 1.7 DM II HTN-LABILE CHEST PAIN MILD HYPERNATREMIA PLAN CONT WITH IVF'S INCREASE LISINOPRIL TO 40MG A DAY WILL FOLLOW MAVERICK TORIBIO MD Aug 02, 2016 12:25
--- NOTE | 2016-08-02 13:12 | PDOC ---
CARDIO Progress Notes Date and Time Date of Service 08/02/2016 Time of Evaluation 1308 Subjective Subjective: No Chest Pain, No shortness of breath, No Palpitations, No Dizziness Vitals Vitals Vital Signs Date Time Temp Pulse Resp B/P Pulse Ox O2 Delivery O2 Flow Rate FiO2 08/02/16 11:00 98.6 82 18 156/64 96 Nasal Cannula 2.0 98.6 Weight Weight [ ] Input and Output Intake and Output Intake and Output 08/02/16 07:00 Intake Total 1200 ml Output Total 2700 ml Balance -1500 ml Intake Oral 1200 ml Output Urine Total 2700 ml # Voids 2 Laboratory Labs Laboratory Tests Test 08/01/16 16:13 08/01/16 16:39 08/01/16 20:58 08/02/16 04:24 Troponin I Quantitative 0.034ng/mL (0.000-0.055) Glucose (Fingerstick) 286mg/dL (70-99) 129mg/dL (70-99) Sodium Level 146mmol/L (136-145) Potassium Level 4.9mmol/L (3.5-5.1) Chloride Level 106mmol/L (98-107) Carbon Dioxide Level 35mmol/L (21-32) Anion Gap 5 (6-14) Blood Urea Nitrogen 27mg/dL (8-26) Creatinine 1.7mg/dL (0.7-1.3) Estimated GFR (Cockcroft-Gault) 46.6 BUN/Creatinine Ratio 16 (6-20) Glucose Level 110mg/dL (70-99) Calcium Level 8.7mg/dL (8.5-10.1) Total Bilirubin 0.4mg/dL (0.2-1.0) Aspartate Amino Transf (AST/SGOT) 18U/L (15-37) Alanine Aminotransferase (ALT/SGPT) 25U/L (16-63) Alkaline Phosphatase 57U/L (46-116) Total Protein 7.0g/dL (6.4-8.2) Albumin 3.2g/dL (3.4-5.0) Albumin/Globulin Ratio 0.8 (1.0-1.7) Test 08/02/16 04:29 08/02/16 07:45 08/02/16 11:53 White Blood Count 11.5x10^3/uL (4.0-11.0) Red Blood Count 3.96x10^6/uL (4.30-5.70) Hemoglobin 12.8g/dL (13.0-17.5) Hematocrit 39.9% (39.0-53.0) Mean Corpuscular Volume 101fL (79-100) Mean Corpuscular Hemoglobin 32pg (25-35) Mean Corpuscular Hemoglobin Concent 32g/dL (31-37) Red Cell Distribution Width 14.4% (11.5-14.5) Platelet Count 114x10^3/uL (140-400) Neutrophils (%) (Auto) 69% (31-73) Lymphocytes (%) (Auto) 13% (24-48) Monocytes (%) (Auto) 18% (0-9) Eosinophils (%) (Auto) 1% (0-3) Basophils (%) (Auto) 0% (0-3) Neutrophils # (Auto) 7.9x10^3uL (1.8-7.7) Lymphocytes # (Auto) 1.4x10^3/uL (1.0-4.8) Monocytes # (Auto) 2.0x10^3/uL (0.0-1.1) Eosinophils # (Auto) 0.1x10^3/uL (0.0-0.7) Basophils # (Auto) 0.0x10^3/uL (0.0-0.2) Glucose (Fingerstick) 153mg/dL (70-99) 297mg/dL (70-99) Review of Systems Constitutional: yes: alert, no symptom reported, oriented, weakness Pulmonary: Yes no symptom reported Gastrointestional: Yes: no symptom reported Genitourinary: Yes: no symptom reported Musculoskeletal: Yes: muscle stiffness Psychiatric/Neurological: Yes: no symptom reported Physical Exam HEENT: Neck Supple W Full Motion Chest: Symmetric LUNGS: Clear to Auscultation Heart: S1S2, RRR, other (PPM left pectoral region - well healed) Abdomen: Soft N/T, Other (obese abdomen) Extremities: Other (mild LE edema) Neurology: alert, oriented, follow commands Assessment Assessment 1. chest pain no further CP MPI in progress pt declined to sign release to allow records to be obtained from [facility] advised to notify Maame he has had MPI done @ [facility] 2. chronic diastolic CHF compensated, continue medical management 3. PPM unable to determine brand - patient declines to release records 4. HTN elevated today as a.m. meds held for MPI 5. HLD LDLs = 58 12/30/2015 continue statin therapy If MPI non-ischemic, expect discharge later today. F/u with Dr. Fierro in 7 - 10 days. EDER KAN APRN Aug 02, 2016 13:12
--- NOTE | 2016-08-02 14:53 | PDOC ---
PROGRESS NOTES Chief Complaint Chief Complaint 1. chest pain, atypical 2. chronic diastolic CHF, hypoxia stable, chronic hypoxic respiratory failure 3. CKD 3, 4. HTN, hyperlipids, DM2, - 5. DEYSI continue home CPAP 6. morbid obesity BMI 45 History of Present Illness History of Present Illness On O2 No inc in SOA CPAP at home [facility] pending CREa 1,7 - stable Ok to cont bumex and chepe inhib per renal AMbulates with cane Lives at home PLAN: Add pT/OT Await [facility] Home wilmar if MPI ok Dw pt CPAP tonight Vitals Vitals Vital Signs Date Time Temp Pulse Resp B/P Pulse Ox O2 Delivery O2 Flow Rate FiO2 08/02/16 11:00 98.6 82 18 156/64 96 Nasal Cannula 2.0 98.6 Physical Exam General: Alert, Oriented X3, Cooperative, No acute distress Heart: Regular rate, Normal S1, Normal S2, No murmurs Lungs: Other Abdomen: Normal bowel sounds, Soft, No tenderness Extremities: No clubbing, No cyanosis Skin: No rashes Labs LABS Laboratory Tests Test 08/01/16 16:13 08/01/16 16:39 08/01/16 20:58 08/02/16 04:24 Troponin I Quantitative 0.034ng/mL (0.000-0.055) Glucose (Fingerstick) 286mg/dL (70-99) 129mg/dL (70-99) Sodium Level 146mmol/L (136-145) Potassium Level 4.9mmol/L (3.5-5.1) Chloride Level 106mmol/L (98-107) Carbon Dioxide Level 35mmol/L (21-32) Anion Gap 5 (6-14) Blood Urea Nitrogen 27mg/dL (8-26) Creatinine 1.7mg/dL (0.7-1.3) Estimated GFR (Cockcroft-Gault) 46.6 BUN/Creatinine Ratio 16 (6-20) Glucose Level 110mg/dL (70-99) Calcium Level 8.7mg/dL (8.5-10.1) Total Bilirubin 0.4mg/dL (0.2-1.0) Aspartate Amino Transf (AST/SGOT) 18U/L (15-37) Alanine Aminotransferase (ALT/SGPT) 25U/L (16-63) Alkaline Phosphatase 57U/L (46-116) Total Protein 7.0g/dL (6.4-8.2) Albumin 3.2g/dL (3.4-5.0) Albumin/Globulin Ratio 0.8 (1.0-1.7) Test 08/02/16 04:29 08/02/16 07:45 08/02/16 11:53 White Blood Count 11.5x10^3/uL (4.0-11.0) Red Blood Count 3.96x10^6/uL (4.30-5.70) Hemoglobin 12.8g/dL (13.0-17.5) Hematocrit 39.9% (39.0-53.0) Mean Corpuscular Volume 101fL (79-100) Mean Corpuscular Hemoglobin 32pg (25-35) Mean Corpuscular Hemoglobin Concent 32g/dL (31-37) Red Cell Distribution Width 14.4% (11.5-14.5) Platelet Count 114x10^3/uL (140-400) Neutrophils (%) (Auto) 69% (31-73) Lymphocytes (%) (Auto) 13% (24-48) Monocytes (%) (Auto) 18% (0-9) Eosinophils (%) (Auto) 1% (0-3) Basophils (%) (Auto) 0% (0-3) Neutrophils # (Auto) 7.9x10^3uL (1.8-7.7) Lymphocytes # (Auto) 1.4x10^3/uL (1.0-4.8) Monocytes # (Auto) 2.0x10^3/uL (0.0-1.1) Eosinophils # (Auto) 0.1x10^3/uL (0.0-0.7) Basophils # (Auto) 0.0x10^3/uL (0.0-0.2) Glucose (Fingerstick) 153mg/dL (70-99) 297mg/dL (70-99) Review of Systems Review of Systems no inc in soa, no cp, no abd pain Assessment and Plan Assessmemt and Plan Problems Medical Problems: (1) Chest pain Status: Acute (2) Chest pain Status: Acute (3) CHF (congestive heart failure) Status: Acute (4) SOB (shortness of breath) Status: Acute Problems: Comment Review of Relevant I have reviewed the following items anthony (where applicable) has been applied. Labs Laboratory Tests Test 08/01/16 03:04 08/01/16 08:08 08/01/16 10:15 08/01/16 10:25 White Blood Count 10.2x10^3/uL (4.0-11.0) Red Blood Count 3.81x10^6/uL (4.30-5.70) Hemoglobin 12.3g/dL (13.0-17.5) Hematocrit 38.8% (39.0-53.0) Mean Corpuscular Volume 102fL (79-100) Mean Corpuscular Hemoglobin 32pg (25-35) Mean Corpuscular Hemoglobin Concent 32g/dL (31-37) Red Cell Distribution Width 14.7% (11.5-14.5) Platelet Count 114x10^3/uL (140-400) Neutrophils (%) (Auto) 72% (31-73) Lymphocytes (%) (Auto) 13% (24-48) Monocytes (%) (Auto) 14% (0-9) Eosinophils (%) (Auto) 1% (0-3) Basophils (%) (Auto) 0% (0-3) Neutrophils # (Auto) 7.3x10^3uL (1.8-7.7) Lymphocytes # (Auto) 1.3x10^3/uL (1.0-4.8) Monocytes # (Auto) 1.5x10^3/uL (0.0-1.1) Eosinophils # (Auto) 0.1x10^3/uL (0.0-0.7) Basophils # (Auto) 0.0x10^3/uL (0.0-0.2) Sodium Level 147mmol/L (136-145) Potassium Level 5.0mmol/L (3.5-5.1) Chloride Level 108mmol/L (98-107) Carbon Dioxide Level 32mmol/L (21-32) Anion Gap 7 (6-14) Blood Urea Nitrogen 37mg/dL (8-26) Creatinine 1.8mg/dL (0.7-1.3) Estimated GFR (Cockcroft-Gault) 43.6 Glucose Level 166mg/dL (70-99) Calcium Level 8.6mg/dL (8.5-10.1) Troponin I Quantitative 0.024ng/mL (0.000-0.055) 0.019ng/mL (0.000-0.055) KK-Tlx-B-Type Natriuretic Peptide 1755pg/mL (0-449) Glucose (Fingerstick) 183mg/dL (70-99) Influenza Type A Antigen Negative (NEGATIVE) Influenza Type B Antigen Negative (NEGATIVE) Test 08/01/16 11:21 08/01/16 16:13 08/01/16 16:39 08/01/16 20:58 Glucose (Fingerstick) 279mg/dL (70-99) 286mg/dL (70-99) 129mg/dL (70-99) Troponin I Quantitative 0.034ng/mL (0.000-0.055) Test 08/02/16 04:24 08/02/16 04:29 08/02/16 07:45 08/02/16 11:53 Sodium Level 146mmol/L (136-145) Potassium Level 4.9mmol/L (3.5-5.1) Chloride Level 106mmol/L (98-107) Carbon Dioxide Level 35mmol/L (21-32) Anion Gap 5 (6-14) Blood Urea Nitrogen 27mg/dL (8-26) Creatinine 1.7mg/dL (0.7-1.3) Estimated GFR (Cockcroft-Gault) 46.6 BUN/Creatinine Ratio 16 (6-20) Glucose Level 110mg/dL (70-99) Calcium Level 8.7mg/dL (8.5-10.1) Total Bilirubin 0.4mg/dL (0.2-1.0) Aspartate Amino Transf (AST/SGOT) 18U/L (15-37) Alanine Aminotransferase (ALT/SGPT) 25U/L (16-63) Alkaline Phosphatase 57U/L (46-116) Total Protein 7.0g/dL (6.4-8.2) Albumin 3.2g/dL (3.4-5.0) Albumin/Globulin Ratio 0.8 (1.0-1.7) White Blood Count 11.5x10^3/uL (4.0-11.0) Red Blood Count 3.96x10^6/uL (4.30-5.70) Hemoglobin 12.8g/dL (13.0-17.5) Hematocrit 39.9% (39.0-53.0) Mean Corpuscular Volume 101fL (79-100) Mean Corpuscular Hemoglobin 32pg (25-35) Mean Corpuscular Hemoglobin Concent 32g/dL (31-37) Red Cell Distribution Width 14.4% (11.5-14.5) Platelet Count 114x10^3/uL (140-400) Neutrophils (%) (Auto) 69% (31-73) Lymphocytes (%) (Auto) 13% (24-48) Monocytes (%) (Auto) 18% (0-9) Eosinophils (%) (Auto) 1% (0-3) Basophils (%) (Auto) 0% (0-3) Neutrophils # (Auto) 7.9x10^3uL (1.8-7.7) Lymphocytes # (Auto) 1.4x10^3/uL (1.0-4.8) Monocytes # (Auto) 2.0x10^3/uL (0.0-1.1) Eosinophils # (Auto) 0.1x10^3/uL (0.0-0.7) Basophils # (Auto) 0.0x10^3/uL (0.0-0.2) Glucose (Fingerstick) 153mg/dL (70-99) 297mg/dL (70-99) Laboratory Tests Test 08/01/16 16:13 08/01/16 16:39 08/01/16 20:58 08/02/16 04:24 Troponin I Quantitative 0.034ng/mL (0.000-0.055) Glucose (Fingerstick) 286mg/dL (70-99) 129mg/dL (70-99) Sodium Level 146mmol/L (136-145) Potassium Level 4.9mmol/L (3.5-5.1) Chloride Level 106mmol/L (98-107) Carbon Dioxide Level 35mmol/L (21-32) Anion Gap 5 (6-14) Blood Urea Nitrogen 27mg/dL (8-26) Creatinine 1.7mg/dL (0.7-1.3) Estimated GFR (Cockcroft-Gault) 46.6 BUN/Creatinine Ratio 16 (6-20) Glucose Level 110mg/dL (70-99) Calcium Level 8.7mg/dL (8.5-10.1) Total Bilirubin 0.4mg/dL (0.2-1.0) Aspartate Amino Transf (AST/SGOT) 18U/L (15-37) Alanine Aminotransferase (ALT/SGPT) 25U/L (16-63) Alkaline Phosphatase 57U/L (46-116) Total Protein 7.0g/dL (6.4-8.2) Albumin 3.2g/dL (3.4-5.0) Albumin/Globulin Ratio 0.8 (1.0-1.7) Test 08/02/16 04:29 08/02/16 07:45 08/02/16 11:53 White Blood Count 11.5x10^3/uL (4.0-11.0) Red Blood Count 3.96x10^6/uL (4.30-5.70) Hemoglobin 12.8g/dL (13.0-17.5) Hematocrit 39.9% (39.0-53.0) Mean Corpuscular Volume 101fL (79-100) Mean Corpuscular Hemoglobin 32pg (25-35) Mean Corpuscular Hemoglobin Concent 32g/dL (31-37) Red Cell Distribution Width 14.4% (11.5-14.5) Platelet Count 114x10^3/uL (140-400) Neutrophils (%) (Auto) 69% (31-73) Lymphocytes (%) (Auto) 13% (24-48) Monocytes (%) (Auto) 18% (0-9) Eosinophils (%) (Auto) 1% (0-3) Basophils (%) (Auto) 0% (0-3) Neutrophils # (Auto) 7.9x10^3uL (1.8-7.7) Lymphocytes # (Auto) 1.4x10^3/uL (1.0-4.8) Monocytes # (Auto) 2.0x10^3/uL (0.0-1.1) Eosinophils # (Auto) 0.1x10^3/uL (0.0-0.7) Basophils # (Auto) 0.0x10^3/uL (0.0-0.2) Glucose (Fingerstick) 153mg/dL (70-99) 297mg/dL (70-99) Medications Current Medications Aspirin (Children'S Aspirin) 324 mg 1X ONCE PO Last administered on 08/01/16 03:16; Start 08/01/16 at 03:15; Stop 08/01/16 at 03:16; Status DC Nitroglycerin (Nitrostat) 0.4 mg PRN Q5MIN PRN SL CP RATING > 1/10 Last administered on 08/01/16 03:17; Start 08/01/16 at 03:15; Stop 08/02/16 at 03:14 ; Status DC Furosemide (Lasix) 40 mg 1X ONCE IVP Last administered on 08/01/16 05:54; Start 08/01/16 at 04:45; Stop 08/01/16 at 04:46; Status DC Ondansetron HCl (Zofran) 4 mg PRN Q8HRS PRN IV NAUSEA/VOMITING; Start 08/01/16 at 04:30; Stop 08/02/16 at 04:29; Status DC Morphine Sulfate 2 mg PRN Q2HR PRN IV PAIN; Start 08/01/16 at 04:30; Stop 08/02 at 04:29; Status DC Acetaminophen (Tylenol) 650 mg PRN Q4HRS PRN PO FEVER; Start 08/01/16 at 04:30 ; Stop 08/02/16 at 04:29; Status DC Multi-Ingredient Mouthwash/Gargle (Gi Cocktail Single Dose) 15 ml 1X ONCE SWSW Last administered on 08/01/16 13:16; Start 08/01/16 at 10:00; Stop 08/01/16 at 10:01; Status DC Lidocaine (Lidoderm) 1 patch DAILY TD Last administered on 08/02/16 13:04; Start 08/01/16 at 11:00 Amlodipine Besylate (Norvasc) 10 mg DAILY PO Last administered on 08/01/16 13: 15; Start 08/01/16 at 13:00 Aspirin (Ecotrin) 81 mg [id number] PO Last administered on 08/01/16 13:13; Start 08/01/16 at 13:00 Atorvastatin Calcium (Lipitor) 20 mg QHS PO Last administered on 08/01/16 20: 59; Start 08/01/16 at 21:00 Bumetanide (Bumex) 1 mg BID92 PO Last administered on 08/02/16 13:04; Start at 14:00 EZETIMIBE (Zetia) 10 mg DAILY PO Last administered on 08/01/16 13:15; Start at 13:00 Finasteride (Proscar) 5 mg DAILY PO Last administered on 08/01/16 13:13; Start 08/01/16 at 13:00 Gabapentin (Neurontin) 100 mg TID PO Last administered on 08/02/16 13:04; Start 08/01/16 at 14:00 Lisinopril (Prinivil) 20 mg DAILY PO Last administered on 08/01/16 13:12; Start 08/01/16 at 13:00; Stop 08/02/16 at 12:25; Status DC Niacin (Slo-Niacin) 1,000 mg HS PO Last administered on 08/01/16 20:59; Start 08/01/16 at 21:00 Pantoprazole Sodium (Protonix) 40 mg DAILY PO Last administered on 08/01/16 13 :13; Start 08/01/16 at 13:00 Primidone (Mysoline) 200 mg HS PO Last administered on 08/01/16 20:59; Start 08/01/16 at 21:00 Tamsulosin HCl (Flomax) 0.4 mg DAILY PO Last administered on 08/01/16 13:14; Start 08/01/16 at 13:00 Dorzolamide HCl (Trusopt) 1 drop PRN BID PRN OU OPTH PRESSURE; Start 08/01/16 at 14:00 Insulin Detemir (Levemir) 45 units QHS SQ ; Start 08/01/16 at 21:00; Stop at 21:00; Status DC Insulin Aspart (Novolog) 35 units TIDAC SQ Last administered on 08/02/16 13:18 ; Start 08/01/16 at 16:30 Metoprolol Tartrate (Lopressor) 100 mg BID PO Last administered on 08/01/16 20 :59; Start 08/01/16 at 13:00 Linagliptin (Tradjenta) 5 mg DAILY PO Last administered on 08/01/16 13:14; Start 08/01/16 at 13:00 Latanoprost (Xalatan) 1 drop QHS OU Last administered on 08/01/16 20:59; Start 08/01/16 at 21:00 Insulin Aspart 35 units 35 units 1X STAT SQ Last administered on 08/01/16 13: 13; Start 08/01/16 at 12:39; Stop 08/01/16 at 12:43; Status DC Sodium Chloride (Iv Sodium Chloride 0.45%) 1,000 ml @ 75 mls/hr [id number] IV Last administered on 08/02/16 06:07; Start 08/01/16 at 15:15 Insulin Detemir (Levemir) 75 units QHS SQ Last administered on 08/01/16 21:04 ; Start 08/01/16 at 21:00 Regadenoson (Lexiscan) 0.4 mg 1X ONCE IV Last administered on 08/02/16 09:31 ; Start 08/02/16 at 09:30; Stop 08/02/16 at 09:31; Status DC Lisinopril (Prinivil) 40 mg DAILY PO ; Start 08/03/16 at 09:00 Active Scripts Active Amlodipine Besylate 10 Mg Tablet 10 Mg PO DAILY Reported Bumetanide 1 Mg Tablet 1 Tab PO BID Gabapentin 100 Mg Capsule 100 Mg PO TID Januvia (Sitagliptin Phosphate) 50 Mg Tablet 25 Mg PO DAILY Metoprolol Tartrate 100 Mg Tablet 1 Tab PO BID Niaspan (Niacin) 500 Mg Tab.er.24h 100 Mg PO HS Travatan Z (Travoprost) 5 Ml Drops 1 Drop EACHEYE QHS Humalog (Insulin Lispro) 100 Unit/1 Ml Insuln.pen 35 Unit SQ TIDAC Lantus (Insulin Glargine,Hum.rec.anlog) 100 Unit/1 Ml Vial 75 Unit SQ HS Primidone 50 Mg Tablet 200 Mg PO HS Pantoprazole Sodium 40 Mg Tablet.dr 1 Tab PO DAILY Lisinopril 20 Mg Tablet 1 Tab PO DAILY Finasteride 5 Mg Tablet 1 Tab PO DAILY Lipitor (Atorvastatin Calcium) 20 Mg Tablet 20 Mg PO Azopt (Brinzolamide) 10 Ml Drops.susp 10 Ml OP BID PRN Flomax (Tamsulosin Hcl) 0.4 Mg Cap.er.24h 0.4 Mg PO Zetia (Ezetimibe) 10 Mg Tablet 10 Mg PO Ecotrin (Aspirin) 81 Mg Tablet.dr 81 Mg PO Vitals/I & O Vital Sign - Last 24 Hours 08/01/16 08/01/16 08/01/16 08/01/16 15:40 19:05 20:00 20:59 Temp 100.0 100.0 100.0 100.0 Pulse 71 71 71 Resp 18 18 B/P 184/80 156/59 156/59 Pulse Ox 99 97 O2 Delivery Nasal Cannula Nasal Cannula Nasal Cannula O2 Flow Rate 2.0 2.0 2.0 08/01/16 08/02/16 08/02/16 08/02/16 23:44 03:41 07:00 09:00 Temp 98.6 98.1 98.7 98.6 98.1 98.7 Pulse 72 69 85 85 Resp 18 18 18 B/P 125/51 138/52 160/73 160/73 Pulse Ox 100 97 96 O2 Delivery Nasal Cannula Nasal Cannula Nasal Cannula O2 Flow Rate 2.0 2.0 2.0 08/02/16 08/02/16 08/02/16 09:00 09:00 11:00 Temp 98.6 98.6 Pulse 85 85 82 Resp 18 B/P 160/73 160/73 156/64 Pulse Ox 96 O2 Delivery Nasal Cannula O2 Flow Rate 2.0 Intake and Output 08/01/16 08/01/16 08/02/16 15:00 23:00 07:00 Intake Total 380 ml 720 ml 100 ml Output Total 1700 ml 1000 ml Balance 380 ml -980 ml -900 ml LUIS FERNANDO PARSON MD Aug 02, 2016 14:53
[2016-08-02 15:00] VITALS: BP 140/74
[2016-08-02] MEDS: IPRATRPIUM/ALBUTEROL 0.5/2.5MG 3 ML NEBU. NEB SCH ×2 (16:36→21:12)
[2016-08-02 19:00] VITALS: BP 110/46
[2016-08-02] MEDS: LATANOPROST 0.005% OPHTH SOLUTION 2.5ML BOTTLE. OU SCH (21:26)
[2016-08-02] MEDS: NIACIN ER 500 MG TABLET.ER PO SCH (21:27)
[2016-08-02] MEDS: ATORVASTATIN CALCIUM 20 MG TABLET PO SCH (21:27)
[2016-08-02] MEDS: PRIMIDONE 50 MG TABLET PO SCH (21:28)
[2016-08-02] MEDS: INSULIN DETEMIR 300 UNITS/3 ML INSULN.PEN. SQ SCH (21:35)
[2016-08-02 23:05] VITALS: BP 117/39
[2016-08-03 03:00] VITALS: BP 144/53
[2016-08-03] MEDS: IV 1/2 NORMAL SALINE 1,000 ML IV SCH (06:34)
[2016-08-03 07:45] VITALS: BP 128/72
[2016-08-03] MEDS: IPRATRPIUM/ALBUTEROL 0.5/2.5MG 3 ML NEBU. NEB SCH ×2 (08:04→11:33)
[2016-08-03 08:10] LABS: CALCIUM 8.6 mg/dL (8.5-10.1); CREATININE 1.8 mg/dL (0.7-1.3); GFR 43.6; POTASSIUM 4.8 mmol/L (3.5-5.1)
[2016-08-03] MEDS: LINAGLIPTIN 5 MG TABLET PO SCH (08:26)
[2016-08-03] MEDS: LIDOCAINE (700MG/PATCH) PATCH. TD SCH (08:26)
[2016-08-03] MEDS: GABAPENTIN 100 MG CAPSULE. PO SCH (08:26)
[2016-08-03] MEDS: ASPIRIN ENTERIC COATED 81 MG TABLET.DR. PO SCH (08:26)
[2016-08-03] MEDS: BUMETANIDE 1 MG TABLET PO SCH (08:26)
[2016-08-03] MEDS: TAMSULOSIN 0.4 MG CAP.ER.24H. PO SCH (08:26)
[2016-08-03] MEDS: PANTOPRAZOLE 40 MG TABLET. PO SCH (08:26)
[2016-08-03] MEDS: METOPROLOL TART IMMED RELEASE 50 MG TABLET PO SCH (08:27)
[2016-08-03] MEDS: FINASTERIDE 5 MG TABLET PO SCH (08:27)
[2016-08-03] MEDS: EZETIMIBE 10 MG TABLET PO SCH (08:27)
[2016-08-03] MEDS: AMLODIPINE BESYLATE 10 MG TABLET PO SCH (08:27)
[2016-08-03] MEDS: INSULIN ASPART 300 UNITS/3 ML INSULN.PEN SQ SCH ×2 (08:36→12:08)
[2016-08-03] MEDS ORDERED: LISINOPRIL 20 MG TABLET PO SCH (09:00)
[2016-08-03 11:08] VITALS: BP 133/61
--- NOTE | 2016-08-03 11:13 | PDOC ---
Renal-Progress Notes Subjective Notes Notes NONE History of Present Illness Hx of present illness NO CHANGE Vitals Vitals Vital Signs Date Time Temp Pulse Resp B/P Pulse Ox O2 Delivery O2 Flow Rate FiO2 08/03/16 11:08 97.7 70 22 133/61 99 Nasal Cannula 2.0 97.7 Weight Weight [ ] I.O. Intake and Output Intake and Output 08/03/16 07:00 Intake Total 1550 ml Output Total 2125 ml Balance -575 ml Intake Oral 1550 ml Output Urine Total 2125 ml # Voids 3 Labs Labs Laboratory Tests Test 08/02/16 11:53 08/02/16 15:52 08/02/16 17:34 08/02/16 20:57 Glucose (Fingerstick) 297mg/dL (70-99) 303mg/dL (70-99) 302mg/dL (70-99) 262mg/dL (70-99) Test 08/03/16 06:50 08/03/16 07:44 Sodium Level 142mmol/L (136-145) Potassium Level 4.8mmol/L (3.5-5.1) Chloride Level 104mmol/L (98-107) Carbon Dioxide Level 34mmol/L (21-32) Anion Gap 4 (6-14) Blood Urea Nitrogen 29mg/dL (8-26) Creatinine 1.8mg/dL (0.7-1.3) Estimated GFR (Cockcroft-Gault) 43.6 Glucose Level 152mg/dL (70-99) Calcium Level 8.6mg/dL (8.5-10.1) Glucose (Fingerstick) 231mg/dL (70-99) Review of Systems Constitutional: yes: alert, no symptom reported, oriented, weakness Pulmonary: Yes no symptom reported Gastrointestional: Yes: no symptom reported Genitourinary: Yes: no symptom reported Musculoskeletal: Yes: muscle stiffness Psychiatric/Neurological: Yes: no symptom reported Physical Exam General Appearance: no apparent distress Skin: warm Respiratory: decreased breath sounds Heart: S1S2, RRR Abdomen: soft, bowel sounds present Extremities: pulses present Neurology: alert, oriented, follow commands Musculoskeletal: Osteoarthritis Assessment Assessment IMP CKD STAGE 3 TO 4-CR STABLE AT 1.8 DM II HTN-BETTER CHEST PAIN MILD HYPERNATREMIA-RESOLVED PLAN CONT WITH IVF'S CARDIOLOGY EVAL AND TX STRESS TEST WILL FOLLOW TORIBIO,MAVERICK S MD Aug 03, 2016 11:12
--- NOTE | 2016-08-03 12:12 | RAD ---
APPROVED REPORT Test Type: Pharmacological Stress Nurse/Tech: Pushpa Ramos RN Test Indications: chest pain Cardiac History: see ehr Medications: see ehr Medical History: see ehr Resting ECG: SR Resting Heart Rate: 70 bpm Resting Blood Pressure: 142/71mmHg Pretest Chest Pain: None Nurse/Tech Notes Lungs CTA, S1, S2 Consent: The procedure was explained to the patient in lay terms. Informed consent was witnessed. Louis eout was entered into [employer]. History and Stress Test performed by Ivy MayNBrianda Pharm. Details Pharmacologic stress testing was performed using 0.4mg per 5ml of regadenoson given intravenously ove r 7-10 seconds. Stress Symptoms No chest pain or symptoms. POST EXERCISE Reason for Termination: Infusion complete Max HR: 107 bpm Max Blood Pressure: 173/69mmHg Blood Pressure response to exercise: Normal blood pressure response during stress. Chest Pain: No. Arrhythmia: No. ST Change: No. INTERPRETATION Stress EKG Conclusion: The resting EKG shows a sinus rhythm and mild nonspecific ST changes The stress EKG showed no significant changes from baseline. No EKG evidence of stress-induced ischemia. Imaging Protocol IMAGE PROTOCOL: Rest Tc-99m/stress Tc-99m 2 days Rest: Stress: Viability: Radiopharm.Tc99m [id number] Sestamibi [id number] 40mCi Img Date 08/03/2016 08/02/2016 Inj-Img [id number]. 60min. Rest Admin Site:IV - Right AntecubitalAdministrator:NEELA Sewell, ARRT (R)(N) Stress Admin Site: IV - Right AntecubitalAdministrator: Moisés Curran, RT (R)(N) STRESS DATA End Diast. Vol.177.5mlAv. Heart Rate78.0bpm End Syst. Vol.85.0mlCO Index BSA0.0L/min Myocardial Xvpe871.5gEject. Uparamwy44.0% Stress Rates Pk. Fill Rate2.31EDV/secLVtime Pk. Fill 167.37msec Pk. Empty Rate2.98ESV/secLVtime Pk. Fivzd099.82msec 06/19 Pk. Fill0.97EDV/sec Stress Scores Regional WT0.00Summed WT10.50 Regional WM0.00Summed WM8.00 LV Perfusion The stress scans showed no significant defects. The rest scans showed no significant defects. Nuclear imaging shows no reversible ischemia or infarct. Wall Motion Left ventricular systolic function is mildly decreased at 47% with mild global hypokinesis. LV Perf. Quant 17 Seg. SSS4.50 17 Seg. SRS1.00 17 Seg. SDS4.00 Stress Defect Extent (% LAD)0.00Rest Defect Extent (% LAD)0.00Rev. Defect Extent (% LAD)0.00 Stress Defect Extent (% LCX) 39.40Rest Defect Extent (% LCX)20.00Rev. Defect Extent (% LCX)8.15 Stress Defect Extent (% RCA)0.00Rest Defect Extent (% RCA)0.00Rev. Defect Extent (% RCA)0.00 Stress Defect Extent (% CLARA)6.85Rest Defect Extent (% CLARA)3.50Rev. Defect Extent (% CLARA)1.40 Conclusion 1. No EKG evidence of stress-induced ischemia. 2. Nuclear imaging shows no reversible ischemia or infarct. 3. Left ventricular systolic function with mild global hypokinesis and ejection fraction of 47%. 4. Low to moderately low risk Lexiscan nuclear stress test.
--- NOTE | 2016-08-03 13:00 | PDOC ---
CARDIO Progress Notes Date and Time Date of Service 08/03/16 Time of Evaluation 1258 Subjective Subjective: No Chest Pain, No shortness of breath, No Palpitations, No Dizziness Vitals Vitals Vital Signs Date Time Temp Pulse Resp B/P Pulse Ox O2 Delivery O2 Flow Rate FiO2 08/03/16 11:34 Nasal Cannula 3.0 08/03/16 11:08 97.7 70 22 133/61 99 97.7 Weight Weight [ ] Input and Output Intake and Output Intake and Output 08/03/16 07:00 Intake Total 1550 ml Output Total 2125 ml Balance -575 ml Intake Oral 1550 ml Output Urine Total 2125 ml # Voids 3 Laboratory Labs Laboratory Tests Test 08/02/16 15:52 08/02/16 17:34 08/02/16 20:57 08/03/16 06:50 Glucose (Fingerstick) 303mg/dL (70-99) 302mg/dL (70-99) 262mg/dL (70-99) Sodium Level 142mmol/L (136-145) Potassium Level 4.8mmol/L (3.5-5.1) Chloride Level 104mmol/L (98-107) Carbon Dioxide Level 34mmol/L (21-32) Anion Gap 4 (6-14) Blood Urea Nitrogen 29mg/dL (8-26) Creatinine 1.8mg/dL (0.7-1.3) Estimated GFR (Cockcroft-Gault) 43.6 Glucose Level 152mg/dL (70-99) Calcium Level 8.6mg/dL (8.5-10.1) Test 08/03/16 07:44 08/03/16 11:35 Glucose (Fingerstick) 231mg/dL (70-99) 236mg/dL (70-99) Review of Systems Constitutional: yes: alert, no symptom reported, oriented, weakness Pulmonary: Yes no symptom reported Gastrointestional: Yes: no symptom reported Genitourinary: Yes: no symptom reported Musculoskeletal: Yes: muscle stiffness Psychiatric/Neurological: Yes: no symptom reported Physical Exam HEENT: Neck Supple W Full Motion Chest: Symmetric LUNGS: Clear to Auscultation Heart: S1S2, RRR, other (PPM left pectoral region - well healed) Abdomen: Soft N/T, Other (obese abdomen) Extremities: Other (mild LE edema) Neurology: alert, oriented, follow commands Assessment Assessment 1. 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 chronic diastolic CHF compensated, continue medical management 3. PPM unable to determine brand - patient declines to release records 4. HTN 5. HLD LDLs = 58 12/30/2015 continue statin therapy F/u with Dr. Fierro in 7 - 10 days EDER KAN APRN Aug 03, 2016 13:00
--- NOTE | 2016-08-03 13:09 | PDOC3 ---
Discharge Summary Visit Information Date of Admission: Aug 01, 2016 Date of Discharge: Aug 03, 2016 Admitting Diagnosis Comment: 1. chest pain, atypical 2. chronic diastolic CHF, hypoxia stable, chronic hypoxic respiratory failure 3. CKD 3, 4. HTN, hyperlipids, DM2, - 5. DEYSI continue home CPAP 6. morbid obesity BMI 45 Final Diagnosis Problems Medical Problems: (1) Chest pain Status: Acute (2) Chest pain Status: Acute (3) CHF (congestive heart failure) Status: Acute (4) SOB (shortness of breath) Status: Acute Brief Hospital Course Allergies Allergies Coded Allergies Type Severity Reaction Last Updated Verified No Known Drug Allergies 08/02/13 No Vital Signs Vital Signs Date Time Temp Pulse Resp B/P Pulse Ox O2 Delivery O2 Flow Rate FiO2 08/03/16 11:34 Nasal Cannula 3.0 08/03/16 11:08 97.7 70 22 133/61 99 97.7 Lab Results Laboratory Tests Test 08/01/16 16:13 08/01/16 16:39 08/01/16 20:58 08/02/16 04:24 Troponin I Quantitative 0.034ng/mL (0.000-0.055) Glucose (Fingerstick) 286mg/dL (70-99) 129mg/dL (70-99) Sodium Level 146mmol/L (136-145) Potassium Level 4.9mmol/L (3.5-5.1) Chloride Level 106mmol/L (98-107) Carbon Dioxide Level 35mmol/L (21-32) Anion Gap 5 (6-14) Blood Urea Nitrogen 27mg/dL (8-26) Creatinine 1.7mg/dL (0.7-1.3) Estimated GFR (Cockcroft-Gault) 46.6 BUN/Creatinine Ratio 16 (6-20) Glucose Level 110mg/dL (70-99) Calcium Level 8.7mg/dL (8.5-10.1) Total Bilirubin 0.4mg/dL (0.2-1.0) Aspartate Amino Transf (AST/SGOT) 18U/L (15-37) Alanine Aminotransferase (ALT/SGPT) 25U/L (16-63) Alkaline Phosphatase 57U/L (46-116) Total Protein 7.0g/dL (6.4-8.2) Albumin 3.2g/dL (3.4-5.0) Albumin/Globulin Ratio 0.8 (1.0-1.7) Test 08/02/16 04:29 08/02/16 07:45 08/02/16 11:53 08/02/16 15:52 White Blood Count 11.5x10^3/uL (4.0-11.0) Red Blood Count 3.96x10^6/uL (4.30-5.70) Hemoglobin 12.8g/dL (13.0-17.5) Hematocrit 39.9% (39.0-53.0) Mean Corpuscular Volume 101fL (79-100) Mean Corpuscular Hemoglobin 32pg (25-35) Mean Corpuscular Hemoglobin Concent 32g/dL (31-37) Red Cell Distribution Width 14.4% (11.5-14.5) Platelet Count 114x10^3/uL (140-400) Neutrophils (%) (Auto) 69% (31-73) Lymphocytes (%) (Auto) 13% (24-48) Monocytes (%) (Auto) 18% (0-9) Eosinophils (%) (Auto) 1% (0-3) Basophils (%) (Auto) 0% (0-3) Neutrophils # (Auto) 7.9x10^3uL (1.8-7.7) Lymphocytes # (Auto) 1.4x10^3/uL (1.0-4.8) Monocytes # (Auto) 2.0x10^3/uL (0.0-1.1) Eosinophils # (Auto) 0.1x10^3/uL (0.0-0.7) Basophils # (Auto) 0.0x10^3/uL (0.0-0.2) Glucose (Fingerstick) 153mg/dL (70-99) 297mg/dL (70-99) 303mg/dL (70-99) Test 08/02/16 17:34 08/02/16 20:57 08/03/16 06:50 08/03/16 07:44 Glucose (Fingerstick) 302mg/dL (70-99) 262mg/dL (70-99) 231mg/dL (70-99) Sodium Level 142mmol/L (136-145) Potassium Level 4.8mmol/L (3.5-5.1) Chloride Level 104mmol/L (98-107) Carbon Dioxide Level 34mmol/L (21-32) Anion Gap 4 (6-14) Blood Urea Nitrogen 29mg/dL (8-26) Creatinine 1.8mg/dL (0.7-1.3) Estimated GFR (Cockcroft-Gault) 43.6 Glucose Level 152mg/dL (70-99) Calcium Level 8.6mg/dL (8.5-10.1) Test 08/03/16 11:35 Glucose (Fingerstick) 236mg/dL (70-99) Laboratory Tests Test 08/02/16 15:52 08/02/16 17:34 08/02/16 20:57 08/03/16 06:50 Glucose (Fingerstick) 303mg/dL (70-99) 302mg/dL (70-99) 262mg/dL (70-99) Sodium Level 142mmol/L (136-145) Potassium Level 4.8mmol/L (3.5-5.1) Chloride Level 104mmol/L (98-107) Carbon Dioxide Level 34mmol/L (21-32) Anion Gap 4 (6-14) Blood Urea Nitrogen 29mg/dL (8-26) Creatinine 1.8mg/dL (0.7-1.3) Estimated GFR (Cockcroft-Gault) 43.6 Glucose Level 152mg/dL (70-99) Calcium Level 8.6mg/dL (8.5-10.1) Test 08/03/16 07:44 08/03/16 11:35 Glucose (Fingerstick) 231mg/dL (70-99) 236mg/dL (70-99) Brief Hospital Course Mr. Stokes is a 86 old AA male with DEYSI on CPAP at home at night,. heavy set , admitted for CP r/o ACS, MPI low to mod risk of future coronary events, No change in home meds, To go home today COunselling provided > 50% of dc time 31 mins Pt seen and examined Consults: CArds Proc: MPI Dispo; home Discharge Information Condition at Discharge: Improved, Stable Disposition/Orders: D/C to Home Scheduled Amlodipine Besylate (Amlodipine Besylate) 10 MG PO DAILY Bumetanide (Bumetanide) 1 TAB PO BID (Reported) Finasteride (Finasteride) 1 TAB PO DAILY (Reported) Gabapentin (Gabapentin) 100 MG PO TID (Reported) Insulin Glargine,Hum.rec.anlog (Lantus) 75 UNIT SQ HS (Reported) Insulin Lispro (Humalog) 35 UNIT SQ TIDAC (Reported) Lisinopril (Lisinopril) 1 TAB PO DAILY (Reported) Metoprolol Tartrate (Metoprolol Tartrate) 1 TAB PO BID (Reported) Niacin (Niaspan) 100 MG PO HS (Reported) Pantoprazole Sodium (Pantoprazole Sodium) 1 TAB PO DAILY (Reported) Primidone (Primidone) 200 MG PO HS (Reported) Sitagliptin Phosphate (Januvia) 25 MG PO DAILY (Reported) Travoprost (Travatan Z) 1 DROP EACHEYE QHS (Reported) Scheduled PRN Brinzolamide (Azopt) 10 ML OP BID PRN PRN DRY EYE (Reported) Miscellaneous Medications Aspirin (Ecotrin) 81 MG PO (Reported) Atorvastatin Calcium (Lipitor) 20 MG PO (Reported) Ezetimibe (Zetia) 10 MG PO (Reported) Tamsulosin Hcl (Flomax) 0.4 MG PO (Reported) LUIS FERNANDO PARSON MD Aug 03, 2016 13:09
== END 2016-08-03 14:31 | disposition home health service (06) | DRG 313 ==
LOC: ER 02:47 → 6 SOUTH 04:23
PROVIDERS: ADMIT Internal Medicine; ATTEND Internal Medicine
DX: R07.9 Chest pain, unspecified (principal); E87.0 Hyperosmolality and hypernatremia; I13.0 Hypertensive heart and chronic kidney disease with heart failure and stage 1 through stage 4 chronic kidney disease, or unspecified chronic kidney disease; J96.11 Chronic respiratory failure with hypoxia; I50.32 Chronic diastolic (congestive) heart failure; N18.4 Chronic kidney disease, stage 4 (severe); Z68.42 Body mass index [BMI] 45.0-49.9, adult; E66.2 Morbid (severe) obesity with alveolar hypoventilation; I25.10 Atherosclerotic heart disease of native coronary artery without angina pectoris; E11.22 Type 2 diabetes mellitus with diabetic chronic kidney disease; E78.00 Pure hypercholesterolemia, unspecified; E78.5 Hyperlipidemia, unspecified; F03.90 Unspecified dementia, unspecified severity, without behavioral disturbance, psychotic disturbance, mood disturbance, and anxiety; I34.0 Nonrheumatic mitral (valve) insufficiency; N40.0 Benign prostatic hyperplasia without lower urinary tract symptoms; Z60.2 Problems related to living alone; J44.9 Chronic obstructive pulmonary disease, unspecified; M19.90 Unspecified osteoarthritis, unspecified site; K21.9 Gastro-esophageal reflux disease without esophagitis; Z98.61 Coronary angioplasty status; Z90.49 Acquired absence of other specified parts of digestive tract; Z95.0 Presence of cardiac pacemaker
CPT/HCPCS: 36415; 71010; 78452; 80048; 80053; 82947; 83880; 84484; 85027; 87804; 93005; 93017; 94250; 94640; 94760; 96374; 96375; 96376; A9500; J1815; J1940; J2785; J7620; 97116; 99285-25

== ENCOUNTER 2016-09-11 08:34 | Emergency (ER) | payer MEDICARE, OTHER ==
[~2016-09-11] VITALS: Ht 175.3 cm; Wt 138.3 kg
[~2016-09-11 08:34] MED LIST changes: +EZET10TA18 PO; -EZET10TA3 PO; +NITR0.4T22 SL; -NITR0.4T6 SL
[2016-09-11] MEDS ORDERED: HYDROcodone/APAP 5/325MG 1 TAB TABLET PO ONE (08:45)
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
[2016-09-11 09:00] VITALS: BP 144/65
[2016-09-11] MEDS ORDERED: NEOMY/BACITR/POLYMYXIN OINT PACKET. TP ONE (09:00)
[2016-09-11] MEDS ORDERED: HYDR-971 PO (09:22)
[2016-10-07] MEDS ORDERED: MELO15TA23 PO (14:01)
== END 2016-09-11 09:30 | disposition home or self-care (01) ==
LOC: ER 08:34
DX: L97.229 Non-pressure chronic ulcer of left calf with unspecified severity (principal); I25.10 Atherosclerotic heart disease of native coronary artery without angina pectoris; I11.0 Hypertensive heart disease with heart failure; I50.9 Heart failure, unspecified; E78.00 Pure hypercholesterolemia, unspecified; E11.622 Type 2 diabetes mellitus with other skin ulcer; L97.929 Non-pressure chronic ulcer of unspecified part of left lower leg with unspecified severity; J44.9 Chronic obstructive pulmonary disease, unspecified; K21.9 Gastro-esophageal reflux disease without esophagitis; Z95.0 Presence of cardiac pacemaker; Z90.49 Acquired absence of other specified parts of digestive tract; X58.XXXA Exposure to other specified factors, initial encounter; Y93.89 Activity, other specified; Y92.89 Other specified places as the place of occurrence of the external cause; Y99.8 Other external cause status
CPT/HCPCS: 82962; 99283

== ENCOUNTER 2016-10-07 10:57 | Inpatient (IN) | payer MEDICARE, OTHER ==
[~2016-10-07] VITALS: Ht 175.3 cm; Wt 135.9 kg
[~2016-10-07 10:57] MED LIST changes: -EZET10TA18 PO; +EZET10TA3 PO; +HYDR-971 PO; -NITR0.4T22 SL; +NITR0.4T6 SL
--- NOTE | 2016-10-07 12:27 | EKG ---
[facility] [address] [place] [address] Test Date: 2016-10-07 Test Time: 11:10:01 Pat Name: JAZMIN YOUNG Department: Room: Gender: M Nca Certified Concierge: : 1930 Requested By: PAPITO LEON Order Number: [id number] Reading MD: Jose De La O Measurements Intervals [place] Rate: 71 P: [place]: QRS: 6 QRSD: 88 T: 49 QT: 380 QTc: 413 Interpretive Statements SINUS RHYTHM NON-SPECIFIC ST/T CHANGES Electronically Signed On 10-09-2016 15:33:14 CDT by Jose De La O
[2016-10-07 12:29] LABS: BASO % 0 % (0-3); EOS % 4 % (0-3); HEMATOCRIT 40.7 % (39.0-53.0); LYMPH # 1.7 x10^3/uL (1.0-4.8); LYMPH % 24 % (24-48); MEAN CORPUSCULAR HEMOGLOBIN 33 pg (25-35); MEAN CORPUSCULAR HGB CONC 32 g/dL (31-37); MEAN CORPUSCULAR VOLUME 104 fL (79-100); MONO % 17 % (0-9); NEUT % 55 % (31-73); PLATELET COUNT 107 x10^3/uL (140-400); RED BLOOD COUNT 3.94 x10^6/uL (4.30-5.70); RED CELL DISTRIBUTION WIDTH 13.9 % (11.5-14.5)
[2016-10-07 12:31] LABS: BILIRUBIN,URINE NEGATIVE (NEG); GLUCOSE,URINE NEGATIVE (NEG); NITRITE,URINE NEGATIVE (NEG); PROTEIN,URINE NEGATIVE (NEG-TRACE); UROBILINOGEN,URINE 0.2 mg/dL (0.2 mg/dL)
[2016-10-07 12:33] LABS: CREATININE 2.8 mg/dL (0.7-1.3); GFR 26.2
[2016-10-07 12:35] LABS: POTASSIUM 6.7 mmol/L (3.5-5.1)
[2016-10-07] MEDS ORDERED: IV NORMAL SALINE 1000ML BAG 1,000 ML IV SCH (12:39)
--- NOTE | 2016-10-07 12:39 | RAD ---
AP portable chest radiograph 10/07/2016 Clinical History: Weakness. An AP portable erect digital radiograph of the chest was obtained. Comparison study is dated 08/01/2016. A pacemaker is unchanged position. The cardiac silhouette is mildly enlarged. The thoracic aorta is mildly tortuous. Atherosclerotic calcification of the thoracic aorta is seen. No acute pulmonary infiltrate is noted. No pleural effusion or pneumothorax is seen. Mild elevation of the right hemidiaphragm is noted. Degenerative changes are seen involving the thoracic spine and both shoulders. Impression: No acute abnormality is seen.
[2016-10-07 12:42] LABS: BACTERIA,URINE 0 /HPF (0-FEW); RBC,URINE 20-40 /HPF (0-2); WBC,URINE 0 /HPF (0-4)
[2016-10-07] MEDS ORDERED: DEXTROSE 50% 25 GM / 50ML DISP.SYRIN. IV ONE ×2 (12:45→15:30)
[2016-10-07] MEDS ORDERED: ONDANSETRON PF 4 MG/2 ML VIAL. IV PRN ×2 (12:45→13:57)
[2016-10-07] MEDS ORDERED: SODIUM BICARB ADULT 8.4% 50 MEQ/50 ML DISP.SYRIN. IV ONE ×2 (12:45→15:30)
[2016-10-07] MEDS ORDERED: INSULIN REGULAR 100 UNIT/ML 10ML VIAL. IV ONE ×2 (12:45→15:30)
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
[2016-10-07] MEDS ORDERED: IPRATRPIUM/ALBUTEROL 0.5/2.5MG 3 ML NEBU. NEB ONE (13:00)
[2016-10-07] MEDS: EZETIMIBE 10 MG TABLET. PO SCH (13:00)
[2016-10-07] MEDS: FINASTERIDE 5 MG TABLET. PO SCH (13:00)
[2016-10-07 13:30] VITALS: BP 169/76
[2016-10-07] MEDS ORDERED: IPRA4AER IH (13:58)
[2016-10-07] MEDS ORDERED: DEXTROSE 50% 25 GM / 50ML DISP.SYRIN. IV PRN (14:00)
[2016-10-07] MEDS ORDERED: MELO-150 PO (14:01)
[2016-10-07] MEDS ORDERED: FURO40TA4 PO (14:04)
[2016-10-07] MEDS ORDERED: FURO80TA3 PO (14:04)
[2016-10-07] MEDS ORDERED: HYDROcodone/APAP 5/325MG 1 TAB TABLET PO PRN (14:15)
[2016-10-07] MEDS: amLODIPine BESYLATE 10 MG TABLET PO SCH (14:27)
[2016-10-07] MEDS ORDERED: SODIUM POLYSTYRENE SULFONATE 15 GM/60 ML ORAL.SUSP. PO ONE ×2 (14:45→15:45)
[2016-10-07] MEDS: SODIUM BICARBONATE VIAL 50 MEQ in IV 1/2 NORMAL SALINE 1,000 ML IV SCH (14:50)
[2016-10-07 15:00] VITALS: BP 119/57
[2016-10-07] MEDS: GABAPENTIN 100 MG CAPSULE. PO SCH ×2 (15:00→20:25)
[2016-10-07] MEDS: LINAGLIPTIN 5 MG TABLET PO SCH (15:00)
[2016-10-07] MEDS: ASPIRIN ENTERIC COATED 81 MG TABLET.DR. PO SCH (15:00)
[2016-10-07] MEDS: PANTOPRAZOLE 40 MG TABLET.DR. PO SCH (15:00)
--- NOTE | 2016-10-07 15:26 | PDOC1 ---
History and Physical Date of Admission Date of Admission DATE: 10/07/16 TIME: 15:19 Identification/Chief Complaint Chief Complaint falls, mutliple times last few days Problems: Source Source: Caregiver, Chart review, Patient History of Present Illness History of Present Illness 86 y./o heavy set AA male with hx CHF, on lasix at home, I last saw for CP few mos ago with MPI that showed low to mod risk future coronary events, brought in by dtr today bec of multiple falls past 2-3 days, He uses assistive device prn? Lives at home. NO head trauma, no LOC On labs at er, hyperkalemia 6,no EKG Changes, crea 2 plus, known CKD - follows with DR palm as OP. EF is good, diastolic heart failure on records. On lasix at home, possibly on K supplements too NOt the very best historian, dtr at bedside Also uses CPAP at night? \\ He describes it as his legs giving out. Past Medical History Cardiovascular: CAD, CHF, HTN, Hyperlipidemia, Other Pulmonary: COPD, Other CENTRAL NERVOUS SYSTEM: Dementia, Vertigo GI: GERD, Other Heme/Onc: Anemia NOS Hepatobiliary: No pertinent hx Psych: No pertinent hx Musculoskeletal: Osteoarthritis Rheumatologic: No pertinent hx Infectious disease: No pertinent hx Renal/: Chronic renal insuff, Benign prostatic enlarg. Endocrine: Diabetes Past Surgical History Past Surgical History: Pacemaker, Cholecystectomy, Other Family History Family History: Cancer, Heart Disease Social History Smoke: No ALCOHOL: none Drugs: None Current Problem List Problem List Problems Medical Problems: (1) Hyperkalemia Status: Acute (2) Weakness Status: Acute Problems: Current Medications Current Medications Current Medications Sodium Bicarbonate 50 meq 1X ONCE IV Last administered on 10/07/16 13:06; Start 10/07/16 at 12:45; Stop 10/07/16 at 12:46; Status DC Dextrose (Dextrose 50%-Water Syringe) 25 gm 1X ONCE IV Last administered on 13:06; Start 10/07/16 at 12:45; Stop 10/07/16 at 12:46; Status DC Insulin Human Regular (Novolin R Vial) 10 unit 1X ONCE IV Last administered on 10/07/16 13:08; Start 10/07/16 at 12:45; Stop 10/07/16 at 12:46; Status DC Ondansetron HCl 4 mg 4 mg PRN Q8HRS PRN IV NAUSEA/VOMITING; Start 10/07/16 at 12:45; Stop 10/07/16 at 13:59; Status DC Sodium Chloride (Iv Sodium Chloride 0.9% 1000ml Bag) 1,000 ml @ 75 mls/hr [id number] IV ; Start 10/07/16 at 12:39; Stop 10/07/16 at 14:06; Status DC Albuterol/ Ipratropium (Duoneb) 3 ml 1X ONCE NEB Last administered on t 12:55; Start 10/07/16 at 13:00; Stop 10/07/16 at 13:01; Status DC Ondansetron HCl (Zofran) 4 mg PRN Q6HRS PRN IV NAUSEA/VOMITING; Start 10/07/16 at 13:57 Insulin Aspart (Novolog) 0-9 UNITS TIDWMEALS SQ ; Start 10/07/16 at 17:00 Dextrose (Dextrose 50%-Water Syringe) 12.5 gm PRN Q15MIN PRN IV SEE COMMENTS; Start 10/07/16 at 14:00 Albuterol/ Ipratropium (Duoneb) 3 ml RTQID NEB ; Start 10/07/16 at 16:00 Amlodipine Besylate (Norvasc) 10 mg DAILY PO ; Start 10/07/16 at 15:00 Aspirin (Ecotrin) 81 mg DAILY PO ; Start 10/07/16 at 15:00 Atorvastatin Calcium (Lipitor) 20 mg HS PO ; Start 10/07/16 at 21:00 EZETIMIBE (Zetia) 10 mg DAILY PO ; Start 10/07/16 at 13:00 Finasteride (Proscar) 5 mg DAILY PO ; Start 10/07/16 at 13:00 Furosemide (Lasix) 40 mg HS PO ; Start 10/07/16 at 21:00 Furosemide (Lasix) 80 mg DAILY PO ; Start 10/08/16 at 09:00 Gabapentin (Neurontin) 100 mg TID PO ; Start 10/07/16 at 15:00 Acetaminophen/ Hydrocodone Bitart (Lortab 5/325) 1 tab PRN Q6HRS PRN PO PAIN; Start 10/07/16 at 14:15 Niacin (Slo-Niacin) 1,000 mg HS PO ; Start 10/07/16 at 21:00 Pantoprazole Sodium (Protonix) 40 mg DAILYAC PO ; Start 10/07/16 at 15:00 Primidone (Mysoline) 200 mg HS PO ; Start 10/07/16 at 21:00 Tamsulosin HCl (Flomax) 0.4 mg HS PO ; Start 10/07/16 at 21:00 Dorzolamide HCl (Trusopt) 1 drop BID OU ; Start 10/07/16 at 21:00 Insulin Detemir (Levemir) 35 units QHS SQ ; Start 10/07/16 at 21:00 Insulin Aspart (Novolog) 20 units TIDWMEALS SQ ; Start 10/07/16 at 17:00 Non-Formulary Medication 2 inh QID IH ; Start 10/07/16 at 17:00; Status UNV Metoprolol Tartrate (Lopressor) 100 mg BID PO ; Start 10/07/16 at 21:00 Linagliptin (Tradjenta) 5 mg DAILY PO ; Start 10/07/16 at 15:00 Latanoprost 1 drop 1 drop QHS OU ; Start 10/07/16 at 21:00 Sodium Bicarbonate/ Sodium Chloride (Iv Sodium Chloride 0.45%) 1,050 ml @ 75 mls/hr Q14H IV Last administered on 10/07/16 14:50; Start 10/07/16 at 15:00 Sodium Polystyrene Sulfonate (Kayexalate) 30 gm 1X ONCE PO Last administered on 10/07/16 14:49; Start 10/07/16 at 14:45; Stop 10/07/16 at 14:46; Status DC Active Scripts Active [place] 5-325 Tablet (Acetaminophen/Hydrocodone Bitart) 1 Each Tablet 1 Tab PO PRN Q6HRS PRN Amlodipine Besylate 10 Mg Tablet 10 Mg PO DAILY Reported Furosemide 40 Mg Tablet 40 Mg PO HS Furosemide 80 Mg Tablet 80 Mg PO DAILY Meloxicam 15 Mg Tablet 15 Mg PO DAILY Combivent Respimat Inhal (Ipratropium/Albuterol Sulfate) 4 Gm Aer.w.adap 2 Inh IH QID Gabapentin 100 Mg Capsule 100 Mg PO TID Januvia (Sitagliptin Phosphate) 50 Mg Tablet 25 Mg PO DAILY Metoprolol Tartrate 100 Mg Tablet 1 Tab PO BID Niaspan (Niacin) 500 Mg Tab.er.24h 1,000 Mg PO HS Travatan Z (Travoprost) 5 Ml Drops 1 Drop EACHEYE QHS Humalog (Insulin Lispro) 100 Unit/1 Ml Insuln.pen 20 Unit SQ TIDAC Lantus (Insulin Glargine,Hum.rec.anlog) 100 Unit/1 Ml Vial 35 Unit SQ HS Primidone 50 Mg Tablet 200 Mg PO HS Pantoprazole Sodium 40 Mg Tablet.dr 1 Tab PO DAILY Lisinopril 20 Mg Tablet 1 Tab PO DAILY Finasteride 5 Mg Tablet 1 Tab PO DAILY Lipitor (Atorvastatin Calcium) 20 Mg Tablet 20 Mg PO HS Azopt (Brinzolamide) 10 Ml Drops.susp 10 Ml OP BID PRN Flomax (Tamsulosin Hcl) 0.4 Mg Cap.er.24h 0.4 Mg PO HS Zetia (Ezetimibe) 10 Mg Tablet 10 Mg PO DAILY Ecotrin (Aspirin) 81 Mg Tablet.dr 81 Mg PO Allergies Allergies: Coded Allergies: No Known Drug Allergies (Unverified , 08/02/13) ROS General: YES: Other (gen weaknes) PSYCHOLOGICAL ROS: No: Anxiety, Behavioral Disorder, Concentration difficultie , Decreased libido, Depression, Disorientation, Hallucinations, Hostility, Irritablity, Memory difficulties, Mood Swings, Obsessive thoughts, Other, Physical abuse, Sexual abuse, Sleep disturbances, Suicidal ideation Eyes: No Blurry vision, No Decreased vision, No Double vision, No Dry eyes, No Excessive tearing, No Eye Pain, No Itchy Eyes, No Loss of vision, No Other, No Photophobia, No Scotomata, No Uses contacts, No Uses glasses HEENT: No: Epistaxis, Heacaches, Hearing change, Nasal congestion, Nasal discharge, Oral lesions, Other, Sinus pain, Sneezing, Snoring, Sore Throat, Tinnitus, Vertigo, Visual Changes, Vocal changes Hematological and Lymphatic: No: Bleeding Problems, Blood Clots, Blood Transfusions, Brusing, Night Sweats, Other, Pallor, Swollen Lymph Nodes ENDOCRINE: No: Breast Changes, Galactorrhea, Hair Pattern Changes, Hot Flashes , Malaise/lethargy, Mood Swings, Other, Palpitations, Polydipsia/polyuria, Skin Changes, Temperature Intolerance, Unexpected Weight Changes Breast: No New/Changing Breast Lumps, No Nipple changes, No Nipple discharge, No Other Respiratory: No: Cough, Hemoptysis, Orthopnea, Other, Pleuritic Pain, SOB with excertion, Shortness of breath, Sputum Changes, Stridor, Tachypnea, Wheezing Cardiovascular: No Chest Pain, No Edema, No Lt Headedness, No Orthopnea, No Other, No Palpitations, No Paroxysmal Noc. Dyspnea Gastrointestinal: No Abdominal Pain, No Constipation, No Diarrhea, No Hematochezia, No Melena, No Nausea, No Other, No Vomiting Genitourinary: No , No , No , No , No , No , No , No Discharge, No Dysuria, No Flank Pain, No Frequency, No Hematuria, No Incontinence, No Other, No Pain, No Retention, No Urgency Musculoskeletal: No Gait Disturbance, No Joint Pain, No Joint Stiffness, No Joint Swelling, No Muscle Pain, No Muscular Weakness, No Other, No Pain In:, No Swelling In: Neurological: No Behavorial Changes, No Bowel/Bladder ControlChng, No Confusion , No Dizziness, No Gait Disturbance, No Headaches, No Impaired Coord/balance, No Memory Loss, No Numbness/Tingling, No Other, No Seizures, No Speech Problems , No Tremors, No Visual Changes, No Weakness Physical Exam General: Alert, Oriented X3, Cooperative, No acute distress HEENT: Atraumatic, PERRLA, EOMI Lungs: Clear to auscultation, Normal air movement Heart: S1S2, RRR, no thrills, no rubs, no gallops, no murmurs Cardiovascular: S1, S2 Breasts: Normal, Rt breast nml w/o mass, Lt breast nml w/o mass, Nipples normal Abdomen: Normal bowel sounds, Soft, No tenderness, No hepatosplenomegaly, No masses Male Genitals Exam: normal genitalia, normal prostate Rectal Exam: not examined PELVIC: Nml ext genitalia Extremities: Other (chronic LE edema, stable) Skin: No rashes, No breakdown, No significant lesion Neuro: Normal gait, Normal speech, Strength at 5/5 X4 ext, Normal tone, Sensation intact, Cranial nerves 3-12 NL, Reflexes 2+ Psych/Mental Status: Mental status NL, Mood NL Vitals Vitals Vital Signs Date Time Temp Pulse Resp B/P Pulse Ox O2 Delivery O2 Flow Rate FiO2 10/07/16 13:30 97.9 70 18 169/76 93 Room Air 97.9 Labs Labs Laboratory Tests Test 10/07/16 11:11 10/07/16 12:06 10/07/16 12:14 Urine Collection Type U cath Urine Color Yellow Urine Clarity Clear Urine pH 6.0 Urine Specific [place] 1.015 Urine Protein Negativemg/dL (NEG-TRACE) Urine Glucose (UA) Negativemg/dL (NEG) Urine Ketones (Stick) Negativemg/dL (NEG) Urine Blood Moderate (NEG) Urine Nitrite Negative (NEG) Urine Bilirubin Negative (NEG) Urine Urobilinogen Dipstick 0.2mg/dL (0.2 mg/dL) Urine Leukocyte Esterase Negative (NEG) Urine RBC 20-40/HPF (0-2) Urine WBC 0/HPF (0-4) Urine Squamous Epithelial Cells /LPF Urine Bacteria 0/HPF (0-FEW) Urine Hyaline Casts Moderate/HPF Urine Mucus Slight/LPF White Blood Count 7.0x10^3/uL (4.0-11.0) Red Blood Count 3.94x10^6/uL (4.30-5.70) Hemoglobin 13.0g/dL (13.0-17.5) Hematocrit 40.7% (39.0-53.0) Mean Corpuscular Volume 104fL (79-100) Mean Corpuscular Hemoglobin 33pg (25-35) Mean Corpuscular Hemoglobin Concent 32g/dL (31-37) Red Cell Distribution Width 13.9% (11.5-14.5) Platelet Count 107x10^3/uL (140-400) Neutrophils (%) (Auto) 55% (31-73) Lymphocytes (%) (Auto) 24% (24-48) Monocytes (%) (Auto) 17% (0-9) Eosinophils (%) (Auto) 4% (0-3) Basophils (%) (Auto) 0% (0-3) Neutrophils # (Auto) 3.9x10^3uL (1.8-7.7) Lymphocytes # (Auto) 1.7x10^3/uL (1.0-4.8) Monocytes # (Auto) 1.2x10^3/uL (0.0-1.1) Eosinophils # (Auto) 0.3x10^3/uL (0.0-0.7) Basophils # (Auto) 0.0x10^3/uL (0.0-0.2) Sodium Level 138mmol/L (136-145) Potassium Level 6.7mmol/L (3.5-5.1) Chloride Level 104mmol/L (98-107) Carbon Dioxide Level 28mmol/L (21-32) Anion Gap 6 (6-14) Blood Urea Nitrogen 70mg/dL (8-26) Creatinine 2.8mg/dL (0.7-1.3) Estimated GFR (Cockcroft-Gault) 26.2 Glucose Level 191mg/dL (70-99) Calcium Level 9.0mg/dL (8.5-10.1) Troponin I Quantitative 0.024ng/mL (0.000-0.055) QA-Xiz-Q-Type Natriuretic Peptide 1995pg/mL (0-449) Glucose (Fingerstick) 191mg/dL (70-99) Laboratory Tests Test 10/07/16 11:11 10/07/16 12:06 10/07/16 12:14 Urine Collection Type U cath Urine Color Yellow Urine Clarity Clear Urine pH 6.0 Urine Specific [place] 1.015 Urine Protein Negativemg/dL (NEG-TRACE) Urine Glucose (UA) Negativemg/dL (NEG) Urine Ketones (Stick) Negativemg/dL (NEG) Urine Blood Moderate (NEG) Urine Nitrite Negative (NEG) Urine Bilirubin Negative (NEG) Urine Urobilinogen Dipstick 0.2mg/dL (0.2 mg/dL) Urine Leukocyte Esterase Negative (NEG) Urine RBC 20-40/HPF (0-2) Urine WBC 0/HPF (0-4) Urine Squamous Epithelial Cells /LPF Urine Bacteria 0/HPF (0-FEW) Urine Hyaline Casts Moderate/HPF Urine Mucus Slight/LPF White Blood Count 7.0x10^3/uL (4.0-11.0) Red Blood Count 3.94x10^6/uL (4.30-5.70) Hemoglobin 13.0g/dL (13.0-17.5) Hematocrit 40.7% (39.0-53.0) Mean Corpuscular Volume 104fL (79-100) Mean Corpuscular Hemoglobin 33pg (25-35) Mean Corpuscular Hemoglobin Concent 32g/dL (31-37) Red Cell Distribution Width 13.9% (11.5-14.5) Platelet Count 107x10^3/uL (140-400) Neutrophils (%) (Auto) 55% (31-73) Lymphocytes (%) (Auto) 24% (24-48) Monocytes (%) (Auto) 17% (0-9) Eosinophils (%) (Auto) 4% (0-3) Basophils (%) (Auto) 0% (0-3) Neutrophils # (Auto) 3.9x10^3uL (1.8-7.7) Lymphocytes # (Auto) 1.7x10^3/uL (1.0-4.8) Monocytes # (Auto) 1.2x10^3/uL (0.0-1.1) Eosinophils # (Auto) 0.3x10^3/uL (0.0-0.7) Basophils # (Auto) 0.0x10^3/uL (0.0-0.2) Sodium Level 138mmol/L (136-145) Potassium Level 6.7mmol/L (3.5-5.1) Chloride Level 104mmol/L (98-107) Carbon Dioxide Level 28mmol/L (21-32) Anion Gap 6 (6-14) Blood Urea Nitrogen 70mg/dL (8-26) Creatinine 2.8mg/dL (0.7-1.3) Estimated GFR (Cockcroft-Gault) 26.2 Glucose Level 191mg/dL (70-99) Calcium Level 9.0mg/dL (8.5-10.1) Troponin I Quantitative 0.024ng/mL (0.000-0.055) JI-Tse-W-Type Natriuretic Peptide 1995pg/mL (0-449) Glucose (Fingerstick) 191mg/dL (70-99) VTE Prophylaxis Ordered VTE Prophylaxis Devices: Yes VTE Pharmacological Prophylaxi: Yes Assessment/Plan Assessment/Plan 1. Hyperkalemia, no ekg changes 2. PIOTR on CKD possibly stage 4 (based on GFR) 3. gen weakness 4. Diastolic heart failure, chronic stable 5. Chronic LE Edema, chronic stable 6. Recent low to mod risk MPI study PLAn: Address K 2MN admit Hook tele Rpt K later and wilmar Renal consulted re Piotr on CKD Cads consulted re read "chf on CXR" Lasix now PT/OT SW SNU screen Rsume home meds except NSAID and lisinopril for now until renal rounds Dw RN SSI Dw dtr at bedside DVt prophy with heparin SQ LUIS FERNANDO PARSON MD Oct 07, 2016 15:25
[2016-10-07] MEDS: IPRATRPIUM/ALBUTEROL 0.5/2.5MG 3 ML NEBU. NEB SCH ×2 (15:30→19:20)
[2016-10-07] MEDS ORDERED: FUROSEMIDE 40 MG/4 ML VIAL. IVP ONE (15:30)
[2016-10-07] MEDS ORDERED: NON FORMULARY ITEM (Ipratropium/Albuterol Sulfate (Combivent Respimat Inhal) 2 INH) IH SCH (17:00)
--- NOTE | 2016-10-07 17:05 | ACF ---
Admission Forms Criteria HYPONATREMIA; HYPERNATREMIA; HYPOKALEMIA; HYPERKALEMIA; HYPOCALCEMIA; HYPERCALCEMIA Clinical Indications for Inpatient Care (Place 'X' for any and all applicable criteria): Ongoing inpatient care may be indicated for ANY ONE of the following [G](1)(2)(3 )(5): [ ]I. Hyponatremia with ANY ONE of the following: [ ]a) Sodium less than 130 mEq/L (mmol/L) (new) (6)(22) [ ]b) Sodium less than 135 mEq/L (mmol/L) with ANY ONE of the following: [ ]i) Severe medical etiology requiring inpatient management (eg, heart failure, hypovolemia) [ ]ii) Altered mental status [ ]iii) Seizures [ ]II. Hypernatremia with ANY ONE of the following: [ ]a) Sodium greater than 155 mEq/L (mmol/L) [ ]b) Sodium greater than 150 mEq/L (mmol/L) with ANY ONE of the following: [ ] i) Altered mental status [ ]ii) Seizures [ ]iii) Severe medical etiology (eg, hypovolemia, diabetes insipidus) [ ]iv) Severe weakness [ ]v) Severe medical etiology (eg, hemolysis, infection, drug overdose) [ ]III. Hypokalemia with ANY ONE of the following: [ ]a) Potassium less than 2.5 mEq/L (mmol/L) despite outpatient and emergency treatment [ ]b) Potassium less than 3.0 mEq/L (mmol/L) with ANY ONE of the following: [ ]i) Weakness [ ]ii) Cardiac abnormality (eg, arrhythmia, conduction disturbance) [ ]iii) Cardiac ischemia [ ]iv) Ileus [ ]v) Ongoing medical cause requiring inpatient management. ( e.g., acute renal wasting, SIADH) [ ]vi) Other severe symptoms [X] IV. Hyperkalemia with ANY ONE of the following: [X]a) Potassium greater than 6.5 mEq/L (mmol/L) [ ]b) Potassium greater than 5 mEq/L (mmol/L) with ANY ONE of the following: [ ]i) Severe ECG findings [H] [ ]ii) Acute worsening of renal failure (creatinine greater than 2.5 mg/dL (221 micromoles/L) or significant elevation for age and size) [ ] V. Hypocalcemia with ANY ONE of the following: [ ]a) Calcium less than 7 mg/dL (1.75 mmol/L) despite outpatient and emergency treatment(19) [ ]b) Calcium less than 8 mg/dL (2 mmol/L) with significant symptoms or findings; examples include: [ ]i) Cardiac abnormality (eg, arrhythmia or conduction disturbance) [ ]ii) Altered mental status [ ]iii) Seizures [ ]iv) Breathing difficulty [ ]v) Muscle spasms [ ]. Hypercalcemia with ANY ONE of the following: [ ]a) Calcium greater than 14 mg/dL (3.5 mmol/L) [ ]b) Calcium greater than 12 mg/dL (3 mmol/L) with ANY ONE of the following: [ ]i) Significant dehydration or hypovolemia as indicated by ANY ONE of the following(2): [ ]1. Clinically significant dehydration as indicated by ANY ONE of the following: [ ]A. Acute loss of weight from baseline (5% of body weight in adults, 9% in pediatric patients) [ ]B. Hemodynamic instability [ ]C. Acute renal failure [ ]D. Serum sodium greater than 150 mEq/L (mmol/L) [ ]2) Dehydration that is persistent indicated by ALL of the following: [ ]A. Oral rehydration therapy not tolerated or insufficient to adequately correct dehydration [ ]B. Appropriate intravenous treatment (eg, fluids ) does not readily correct dehydration ie, after 12 to 24 hours of treatment) [ ]ii) Significant symptoms or findings; examples include: [ ]1) Altered mental status [ ]2) Cardiac abnormality (eg, arrhythmia, conduction disturbance) [ ]3) Cardiac abnormality (eg, arrhythmia, conduction disturbance) The original [email or web address] content created by [email or web address] has been revised. The portions of the content which have been revised are identified through the use of italic text or in bold, and [facility] has neither reviewed nor approved the modified material. All other unmodified content is copyright [facility] [employer] Please see references footnoted in the original [facility] edition 2016 Admission Criteria Met?: Yes COMPA ANG Oct 07, 2016 17:05
[2016-10-07] MEDS: INSULIN ASPART 300 UNITS/3 ML INSULN.PEN SQ SCH ×2 (18:09)
[2016-10-07 19:45] VITALS: BP 105/60
[2016-10-07] MEDS: ATORVASTATIN CALCIUM 20 MG TABLET PO SCH (20:24)
[2016-10-07] MEDS: METOPROLOL TART IMMED RELEASE 50 MG TABLET. PO SCH (20:24)
[2016-10-07] MEDS: PRIMIDONE 50 MG TABLET PO SCH (20:24)
[2016-10-07] MEDS: FUROSEMIDE 40 MG TABLET. PO SCH (20:25)
[2016-10-07] MEDS: DORZOLAMIDE 2% OPHTH SOLUTION 10ML BOTTLE. OU SCH (20:25)
[2016-10-07] MEDS: LATANOPROST 0.005% OPHTH SOLUTION 2.5ML BOTTLE. OU SCH (20:25)
[2016-10-07] MEDS: NIACIN ER 500 MG TABLET.ER PO SCH (20:25)
[2016-10-07] MEDS ORDERED: INSULIN DETEMIR 300 UNITS/3 ML INSULN.PEN. SQ SCH (21:00)
[2016-10-07] MEDS ORDERED: TAMSULOSIN 0.4 MG CAP.ER.24H. PO SCH (21:00)
[2016-10-07 22:50] VITALS: BP 116/68
[2016-10-08 03:00] VITALS: BP 127/72
[2016-10-08 04:50] LABS: BASO % 0 % (0-3); EOS % 3 % (0-3); HEMATOCRIT 36.8 % (39.0-53.0); HEMOGLOBIN 12.1 g/dL (13.0-17.5); LYMPH # 1.5 x10^3/uL (1.0-4.8); LYMPH % 22 % (24-48); MEAN CORPUSCULAR HEMOGLOBIN 33 pg (25-35); MEAN CORPUSCULAR HGB CONC 33 g/dL (31-37); MEAN CORPUSCULAR VOLUME 101 fL (79-100); MONO % 15 % (0-9); NEUT % 60 % (31-73); PLATELET COUNT 100 x10^3/uL (140-400); RED BLOOD COUNT 3.65 x10^6/uL (4.30-5.70); RED CELL DISTRIBUTION WIDTH 14.2 % (11.5-14.5)
[2016-10-08 07:45] VITALS: BP 136/72
[2016-10-08] MEDS: IPRATRPIUM/ALBUTEROL 0.5/2.5MG 3 ML NEBU. NEB SCH ×4 (07:49→19:36)
[2016-10-08] MEDS: ASPIRIN ENTERIC COATED 81 MG TABLET.DR. PO SCH (08:50)
[2016-10-08] MEDS: GABAPENTIN 100 MG CAPSULE. PO SCH (08:50)
[2016-10-08] MEDS: LINAGLIPTIN 5 MG TABLET PO SCH (08:50)
[2016-10-08] MEDS: METOPROLOL TART IMMED RELEASE 50 MG TABLET. PO SCH ×2 (08:51→21:38)
[2016-10-08] MEDS: EZETIMIBE 10 MG TABLET. PO SCH (08:51)
[2016-10-08] MEDS: FUROSEMIDE 80 MG TABLET. PO SCH (08:52)
[2016-10-08] MEDS: PANTOPRAZOLE 40 MG TABLET.DR. PO SCH (08:52)
[2016-10-08] MEDS: amLODIPine BESYLATE 10 MG TABLET PO SCH (08:52)
[2016-10-08] MEDS: FINASTERIDE 5 MG TABLET. PO SCH (08:52)
[2016-10-08] MEDS: SODIUM BICARBONATE VIAL 50 MEQ in IV 1/2 NORMAL SALINE 1,000 ML IV SCH (08:57)
[2016-10-08] MEDS: DORZOLAMIDE 2% OPHTH SOLUTION 10ML BOTTLE. OU SCH ×2 (08:57→21:34)
[2016-10-08] MEDS: INSULIN ASPART 300 UNITS/3 ML INSULN.PEN SQ SCH ×6 (09:11→18:05)
--- NOTE | 2016-10-08 09:31 | PDOC2 ---
CARDIAC CONSULT DATE OF CONSULT Date of Consult DATE: 10/08/16 TIME: 09:15 REASON FOR CONSULT Reason for Consult: Weakness REFERRING PHYSICIAN Referring Physician: Carlota SOURCE Source: Chart review, Patient HISTORY OF PRESENT ILLNESS HISTORY OF PRESENT ILLNESS This is a pleasant 86 yo male admitted for complains of weakness and falls. Reports that last Saturday he fell twice and may have landed on his knees with tenderness to his right knee. Reports no dizziness. He just felt that his knees gave out. Reports no chest pain, SOA, palpitations. Denies any fever or chills. Saturday he was so weak that he could not even get out of bed. He did not drink enough fluids yesterday as well. Otherwise he has been taking his routine medications as ordered. 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 Endocrine: Diabetes (type II) Dermatology: No pertinent hx PAST SURGICAL HISTORY Past Surgical History Pacemaker (medtronic), Cholecystectomy, Other (left rib) FAMILY HISTORY Family History Cancer, Heart Disease SOCIAL HISTORY Smoke: No ALCOHOL: none Drugs: None CURRENT MEDICATIONS CURRENT MEDICATIONS Current Medications Medications (Trade) Dose Ordered Sig/Heavenly Route PRN Reason Start Time Stop Time Status Last Admin Dose Admin Sodium Bicarbonate 50 meq 1X ONCE IV 10/07/16 12:45 10/07/16 12:46 DC 10/07/16 13:06 Dextrose (Dextrose 50%-Water Syringe) 25 gm 1X ONCE IV 10/07/16 12:45 10/07/16 12:46 DC 10/07/16 13:06 Insulin Human Regular (Novolin R Vial) 10 unit 1X ONCE IV 10/07/16 12:45 10/07/16 12:46 DC 10/07/16 13:08 Albuterol/ Ipratropium (Duoneb) 3 ml 1X ONCE NEB 10/07/16 13:00 10/07/16 13:01 DC 10/07/16 12:55 Insulin Aspart (Novolog) 0-9 UNITS TIDWMEALS SQ 10/07/16 17:00 10/08/16 09:12 Albuterol/ Ipratropium (Duoneb) 3 ml RTQID NEB 10/07/16 16:00 10/08/16 07:49 Amlodipine Besylate (Norvasc) 10 mg DAILY PO 10/07/16 15:00 10/08/16 08:52 Aspirin (Ecotrin) 81 mg DAILY PO 10/07/16 15:00 10/08/16 08:50 Atorvastatin Calcium (Lipitor) 20 mg HS PO 10/07/16 21:00 10/07/16 20:24 EZETIMIBE (Zetia) 10 mg DAILY PO 10/07/16 13:00 10/08/16 08:51 Finasteride (Proscar) 5 mg DAILY PO 10/07/16 13:00 10/08/16 08:52 Furosemide (Lasix) 40 mg HS PO 10/07/16 21:00 10/07/16 20:25 Furosemide (Lasix) 80 mg DAILY PO 10/08/16 09:00 10/08/16 08:52 Gabapentin (Neurontin) 100 mg TID PO 10/07/16 15:00 10/08/16 08:50 Niacin (Slo-Niacin) 1,000 mg HS PO 10/07/16 21:00 10/07/16 20:25 Pantoprazole Sodium (Protonix) 40 mg DAILYAC PO 10/07/16 15:00 10/08/16 08:52 Primidone (Mysoline) 200 mg HS PO 10/07/16 21:00 10/07/16 20:24 Tamsulosin HCl (Flomax) 0.4 mg HS PO 10/07/16 21:00 10/07/16 20:25 Dorzolamide HCl (Trusopt) 1 drop BID OU 10/07/16 21:00 10/08/16 08:57 Insulin Detemir (Levemir) 35 units QHS SQ 10/07/16 21:00 10/07/16 20:32 Insulin Aspart (Novolog) 20 units TIDWMEALS SQ 10/07/16 17:00 10/08/16 09:11 Metoprolol Tartrate (Lopressor) 100 mg BID PO 10/07/16 21:00 10/08/16 08:51 Linagliptin (Tradjenta) 5 mg DAILY PO 10/07/16 15:00 10/08/16 08:50 Latanoprost 1 drop 1 drop QHS OU 10/07/16 21:00 10/07/16 20:25 Sodium Bicarbonate/ Sodium Chloride (Iv Sodium Chloride 0.45%) 1,050 ml @ 75 mls/hr Q14H IV 10/07/16 15:00 10/08/16 08:57 Sodium Polystyrene Sulfonate (Kayexalate) 30 gm 1X ONCE PO 10/07/16 14:45 10/07/16 14:46 DC 10/07/16 14:49 ALLERGIES ALLERGIES: Coded Allergies: No Known Drug Allergies (Unverified , 08/02/13) ROS Review of System 14 point ROS evaluated with pertinent positives noted per HPI PHYSICAL EXAM General: Alert, Oriented X3, Cooperative, No acute distress HEENT: Atraumatic, Mucous membr. moist/pink Heart: Regular rate (SR/ST), Normal S1, Normal S2, Other (2-3/6 systolic murmur to LLS border) Abdomen: Soft, No tenderness Extremities: No cyanosis, Other (1-2+ bilateral LE pitting edema) Skin: No breakdown, No significant lesion Neuro: Normal speech, Sensation intact Psych/Mental Status: Mental status NL, Mood NL MUSCULOSKELETAL: Osteoarthritic changes both hands, Other (tender right knee) VITALS VITALS Vital Signs Date Time Temp Pulse Resp B/P Pulse Ox O2 Delivery O2 Flow Rate FiO2 10/08/16 08:52 75 136/72 10/08/16 07:49 95 Room Air 10/08/16 07:45 97.9 18 97.9 LABS Lab: Laboratory Tests Test 10/07/16 11:11 10/07/16 12:06 10/07/16 12:14 10/07/16 15:55 Urine Collection Type U cath Urine Color Yellow Urine Clarity Clear Urine pH 6.0 Urine Specific [place] 1.015 Urine Protein Negativemg/dL (NEG-TRACE) Urine Glucose (UA) Negativemg/dL (NEG) Urine Ketones (Stick) Negativemg/dL (NEG) Urine Blood Moderate (NEG) Urine Nitrite Negative (NEG) Urine Bilirubin Negative (NEG) Urine Urobilinogen Dipstick 0.2mg/dL (0.2 mg/dL) Urine Leukocyte Esterase Negative (NEG) Urine RBC 20-40/HPF (0-2) Urine WBC 0/HPF (0-4) Urine Squamous Epithelial Cells /LPF Urine Bacteria 0/HPF (0-FEW) Urine Hyaline Casts Moderate/HPF Urine Mucus Slight/LPF White Blood Count 7.0x10^3/uL (4.0-11.0) Red Blood Count 3.94x10^6/uL (4.30-5.70) Hemoglobin 13.0g/dL (13.0-17.5) Hematocrit 40.7% (39.0-53.0) Mean Corpuscular Volume 104fL (79-100) Mean Corpuscular Hemoglobin 33pg (25-35) Mean Corpuscular Hemoglobin Concent 32g/dL (31-37) Red Cell Distribution Width 13.9% (11.5-14.5) Platelet Count 107x10^3/uL (140-400) Neutrophils (%) (Auto) 55% (31-73) Lymphocytes (%) (Auto) 24% (24-48) Monocytes (%) (Auto) 17% (0-9) Eosinophils (%) (Auto) 4% (0-3) Basophils (%) (Auto) 0% (0-3) Neutrophils # (Auto) 3.9x10^3uL (1.8-7.7) Lymphocytes # (Auto) 1.7x10^3/uL (1.0-4.8) Monocytes # (Auto) 1.2x10^3/uL (0.0-1.1) Eosinophils # (Auto) 0.3x10^3/uL (0.0-0.7) Basophils # (Auto) 0.0x10^3/uL (0.0-0.2) Sodium Level 138mmol/L (136-145) Potassium Level 6.7mmol/L (3.5-5.1) 6.3mmol/L (3.5-5.1) Chloride Level 104mmol/L (98-107) Carbon Dioxide Level 28mmol/L (21-32) Anion Gap 6 (6-14) Blood Urea Nitrogen 70mg/dL (8-26) Creatinine 2.8mg/dL (0.7-1.3) Estimated GFR (Cockcroft-Gault) 26.2 Glucose Level 191mg/dL (70-99) Calcium Level 9.0mg/dL (8.5-10.1) Troponin I Quantitative 0.024ng/mL (0.000-0.055) WP-Icx-[id number]-Type Natriuretic Peptide 1995pg/mL (0-449) Glucose (Fingerstick) 191mg/dL (70-99) Test 10/07/16 16:56 10/07/16 20:27 10/08/16 03:00 10/08/16 04:05 Glucose (Fingerstick) 194mg/dL (70-99) 251mg/dL (70-99) White Blood Count 7.0x10^3/uL (4.0-11.0) Red Blood Count 3.65x10^6/uL (4.30-5.70) Hemoglobin 12.1g/dL (13.0-17.5) Hematocrit 36.8% (39.0-53.0) Mean Corpuscular Volume 101fL (79-100) Mean Corpuscular Hemoglobin 33pg (25-35) Mean Corpuscular Hemoglobin Concent 33g/dL (31-37) Red Cell Distribution Width 14.2% (11.5-14.5) Platelet Count 100x10^3/uL (140-400) Neutrophils (%) (Auto) 60% (31-73) Lymphocytes (%) (Auto) 22% (24-48) Monocytes (%) (Auto) 15% (0-9) Eosinophils (%) (Auto) 3% (0-3) Basophils (%) (Auto) 0% (0-3) Neutrophils # (Auto) 4.2x10^3uL (1.8-7.7) Lymphocytes # (Auto) 1.5x10^3/uL (1.0-4.8) Monocytes # (Auto) 1.1x10^3/uL (0.0-1.1) Eosinophils # (Auto) 0.2x10^3/uL (0.0-0.7) Basophils # (Auto) 0.0x10^3/uL (0.0-0.2) Sodium Level 142mmol/L (136-145) Potassium Level 5.7mmol/L (3.5-5.1) Chloride Level 106mmol/L (98-107) Carbon Dioxide Level 30mmol/L (21-32) Anion Gap 6 (6-14) Blood Urea Nitrogen 61mg/dL (8-26) Creatinine 2.6mg/dL (0.7-1.3) Estimated GFR (Cockcroft-Gault) 28.5 Glucose Level 218mg/dL (70-99) Calcium Level 8.3mg/dL (8.5-10.1) ECHOCARDIOGRAM ECHOCARDIOGRAM <Conclusion> Technically difficult study. Lumason echo contrast used. The left ventricular systolic function is normal. The ejection fraction is estimated at 60%. There is normal LV segmental wall motion. The left atrium is moderately dilated. Mild mitral regurgitation. Trace to mild tricuspid regurgitation. There is mild pulmonary hypertension. The PA pressure was estimated at 41 mmHg. There is no evidence of significant pericardial effusion. DATE: 12/22/15 1154 STRESS TEST STRESS TEST Conclusion 1. No EKG evidence of stress-induced ischemia. 2. Nuclear imaging shows no reversible ischemia or infarct. 3. Left ventricular systolic function with mild global hypokinesis and ejection fraction of 47%. 4. Low to moderately low risk Lexiscan nuclear stress test. DATE: 08/03/16 1211 ASSESSMENT/PLAN ASSESSMENT/PLAN 1. Multiple mechanical falls with weakness: NO presyncope. Multifactorial including as BRITTON/hyperkalemia, deconditioning, rhabdomyolysis 2. Right knee pain: due to above. defer to PCP 3. Chronic diastolic CHF: notable EF of 60% on past TTE and 47% via MPI recently. Compensated 4. Rhabdomyolysis: myoglobin 209. 5. BRITTON on CKD3/hyperkalemia: baseline past Cr at 1.8. K initially at 6.7. Notable for inadequate hydration. Contributing to pro NT BNP elevation. 6. AICD: specific indication not known. Medtronic 7. HTN: controlled 8. HLP 9. Anemia of chronic disease: Hgb 12.1 10. CAD: stents in the past. No cardiac symptoms. CP free. 11. COPD/DEYSI: CPAP use Recommendations 1. Repeat TTE. 2. Consult nephrology 3. CMP, Mg, TSH, CK, myoglobin 4. Will also interrogate device 5. Will request records from [facility] 6. Follow up with Dr. Fierro upon discharge 7. Continue secondary prevention Problems: PRAMOD MANCILLA [employer] Oct 08, 2016 09:31
[2016-10-08 09:57] LABS: ALBUMIN 3.2 g/dL (3.4-5.0); ALBUMIN/GLOBULIN RATIO 0.9 (1.0-1.7); TOTAL BILIRUBIN 0.3 mg/dL (0.2-1.0); TOTAL PROTEIN 6.7 g/dL (6.4-8.2)
[2016-10-08 09:58] LABS: MAGNESIUM 2.1 mg/dL (1.8-2.4)
[2016-10-08 09:59] LABS: CALCIUM 8.3 mg/dL (8.5-10.1); CREATININE 2.6 mg/dL (0.7-1.3); GFR 28.5; POTASSIUM 5.7 mmol/L (3.5-5.1)
[2016-10-08] MEDS ORDERED: SULFUR HEXAFLUORIDE MICROSPHR 25 MG VIAL. IVP ONE ×2 (10:55→12:00)
[2016-10-08 11:01] VITALS: BP 122/59
--- NOTE | 2016-10-08 11:39 | PDOC ---
PROGRESS NOTES Chief Complaint Chief Complaint cc: generalized weakness, recent multiple falls CHF HTN CAD COPD GERD Chronic Kidney disease BPH Pacemaker DEYSI vs. Obesity hypoventilation syndrome History of Present Illness History of Present Illness Patient seen and evaluated this AM. Patient currently sitting upright in chair. Continues to report of generalized malaise and weakness. Requests treatment for the venous stasis changes to his LEs. Patient is ambulating with physical therapy, but is limited secondary to dyspnea. d/w PT/OT and nurse. Vitals Vitals Vital Signs Date Time Temp Pulse Resp B/P Pulse Ox O2 Delivery O2 Flow Rate FiO2 10/08/16 11:28 Room Air 10/08/16 11:01 97.4 74 20 122/59 94 97.4 Physical Exam General: Alert, Oriented X3, Cooperative, No acute distress Heart: Regular rate, Normal S1, No murmurs Lungs: Other (diminished breath sounds bilaterally. negative chest retractions or accessory muscle use. ) Abdomen: Normal bowel sounds, Soft, No tenderness, No masses, Other (obese) Extremities: No cyanosis, Other (chronic LE edema and venous stasis changes, stable) Skin: No rashes, No breakdown, No significant lesion Labs LABS Laboratory Tests Test 10/07/16 12:06 10/07/16 12:14 10/07/16 15:55 10/07/16 16:56 White Blood Count 7.0x10^3/uL (4.0-11.0) Red Blood Count 3.94x10^6/uL (4.30-5.70) Hemoglobin 13.0g/dL (13.0-17.5) Hematocrit 40.7% (39.0-53.0) Mean Corpuscular Volume 104fL (79-100) Mean Corpuscular Hemoglobin 33pg (25-35) Mean Corpuscular Hemoglobin Concent 32g/dL (31-37) Red Cell Distribution Width 13.9% (11.5-14.5) Platelet Count 107x10^3/uL (140-400) Neutrophils (%) (Auto) 55% (31-73) Lymphocytes (%) (Auto) 24% (24-48) Monocytes (%) (Auto) 17% (0-9) Eosinophils (%) (Auto) 4% (0-3) Basophils (%) (Auto) 0% (0-3) Neutrophils # (Auto) 3.9x10^3uL (1.8-7.7) Lymphocytes # (Auto) 1.7x10^3/uL (1.0-4.8) Monocytes # (Auto) 1.2x10^3/uL (0.0-1.1) Eosinophils # (Auto) 0.3x10^3/uL (0.0-0.7) Basophils # (Auto) 0.0x10^3/uL (0.0-0.2) Sodium Level 138mmol/L (136-145) Potassium Level 6.7mmol/L (3.5-5.1) 6.3mmol/L (3.5-5.1) Chloride Level 104mmol/L (98-107) Carbon Dioxide Level 28mmol/L (21-32) Anion Gap 6 (6-14) Blood Urea Nitrogen 70mg/dL (8-26) Creatinine 2.8mg/dL (0.7-1.3) Estimated GFR (Cockcroft-Gault) 26.2 Glucose Level 191mg/dL (70-99) Calcium Level 9.0mg/dL (8.5-10.1) Troponin I Quantitative 0.024ng/mL (0.000-0.055) KJ-Ojo-D-Type Natriuretic Peptide 1995pg/mL (0-449) Glucose (Fingerstick) 191mg/dL (70-99) 194mg/dL (70-99) Test 10/07/16 20:27 10/08/16 03:00 10/08/16 04:05 Glucose (Fingerstick) 251mg/dL (70-99) White Blood Count 7.0x10^3/uL (4.0-11.0) Red Blood Count 3.65x10^6/uL (4.30-5.70) Hemoglobin 12.1g/dL (13.0-17.5) Hematocrit 36.8% (39.0-53.0) Mean Corpuscular Volume 101fL (79-100) Mean Corpuscular Hemoglobin 33pg (25-35) Mean Corpuscular Hemoglobin Concent 33g/dL (31-37) Red Cell Distribution Width 14.2% (11.5-14.5) Platelet Count 100x10^3/uL (140-400) Neutrophils (%) (Auto) 60% (31-73) Lymphocytes (%) (Auto) 22% (24-48) Monocytes (%) (Auto) 15% (0-9) Eosinophils (%) (Auto) 3% (0-3) Basophils (%) (Auto) 0% (0-3) Neutrophils # (Auto) 4.2x10^3uL (1.8-7.7) Lymphocytes # (Auto) 1.5x10^3/uL (1.0-4.8) Monocytes # (Auto) 1.1x10^3/uL (0.0-1.1) Eosinophils # (Auto) 0.2x10^3/uL (0.0-0.7) Basophils # (Auto) 0.0x10^3/uL (0.0-0.2) Sodium Level 142mmol/L (136-145) Potassium Level 5.7mmol/L (3.5-5.1) Chloride Level 106mmol/L (98-107) Carbon Dioxide Level 30mmol/L (21-32) Anion Gap 6 (6-14) Blood Urea Nitrogen 61mg/dL (8-26) Creatinine 2.6mg/dL (0.7-1.3) Estimated GFR (Cockcroft-Gault) 28.5 BUN/Creatinine Ratio 23 (6-20) Glucose Level 218mg/dL (70-99) Calcium Level 8.3mg/dL (8.5-10.1) Magnesium Level 2.1mg/dL (1.8-2.4) Total Bilirubin 0.3mg/dL (0.2-1.0) Aspartate Amino Transf (AST/SGOT) 18U/L (15-37) Alanine Aminotransferase (ALT/SGPT) 30U/L (16-63) Alkaline Phosphatase 48U/L (46-116) Creatine Kinase 148U/L (39-308) Myoglobin 209ng/mL (16-96) Total Protein 6.7g/dL (6.4-8.2) Albumin 3.2g/dL (3.4-5.0) Albumin/Globulin Ratio 0.9 (1.0-1.7) Thyroid Stimulating Hormone (TSH) 0.746uIU/mL (0.358-3.74) Review of Systems Review of Systems (+) generalized weakness (+) dyspnea on exertion (+) neuropathic pain to LEs Denies chest pain, sob at rest, abdominal pain, n/v/d, dizziness/lightheadedness , or fever/chills. Assessment and Plan Assessmemt and Plan Problems Medical Problems: (1) Hyperkalemia Status: Acute (2) Weakness Status: Acute Assessment 1.) generalized weakness, multifactorial - electrolytes changes, sedentary lifestyle/deconditioning, CKD, etc. 2.) prior multiple fall, multifactorial, but probable peripheral neuropathy with altered propioception 2/2 diabetes. 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 obesity hypoventilation, currently on CPAP 12.) hyperlipidemia 13.) pacemaker: unknown brand Plan: 1.) continue home medications as appropriate 2.) cardiology and nephrology consulted, recommendations appreciated. 3.) currently on furosemide; consider holding until seen by nephrology; add on kayexalate to address hyperkalemia. 4.) monitor AM labs. 5.) continue PT/OT 6.) continue telemetry 7.) continue discharge planning to [facility] 8.) home medication reconciled; patient is on 35mg lispro TID AC, 75mg lantus QHS, and 300mg TID of gabapentin. monitor blood glucose AC and continue SSI. check a hgbA1C 9.) DVT ppx: SQ heparin. 10.) emollient for LEs to help with skin changes. Problems: Comment Review of Relevant I have reviewed the following items anthony (where applicable) has been applied. Labs Laboratory Tests Test 10/07/16 11:11 10/07/16 12:06 10/07/16 12:14 10/07/16 15:55 Urine Collection Type U cath Urine Color Yellow Urine Clarity Clear Urine pH 6.0 Urine Specific [place] 1.015 Urine Protein Negativemg/dL (NEG-TRACE) Urine Glucose (UA) Negativemg/dL (NEG) Urine Ketones (Stick) Negativemg/dL (NEG) Urine Blood Moderate (NEG) Urine Nitrite Negative (NEG) Urine Bilirubin Negative (NEG) Urine Urobilinogen Dipstick 0.2mg/dL (0.2 mg/dL) Urine Leukocyte Esterase Negative (NEG) Urine RBC 20-40/HPF (0-2) Urine WBC 0/HPF (0-4) Urine Squamous Epithelial Cells /LPF Urine Bacteria 0/HPF (0-FEW) Urine Hyaline Casts Moderate/HPF Urine Mucus Slight/LPF White Blood Count 7.0x10^3/uL (4.0-11.0) Red Blood Count 3.94x10^6/uL (4.30-5.70) Hemoglobin 13.0g/dL (13.0-17.5) Hematocrit 40.7% (39.0-53.0) Mean Corpuscular Volume 104fL (79-100) Mean Corpuscular Hemoglobin 33pg (25-35) Mean Corpuscular Hemoglobin Concent 32g/dL (31-37) Red Cell Distribution Width 13.9% (11.5-14.5) Platelet Count 107x10^3/uL (140-400) Neutrophils (%) (Auto) 55% (31-73) Lymphocytes (%) (Auto) 24% (24-48) Monocytes (%) (Auto) 17% (0-9) Eosinophils (%) (Auto) 4% (0-3) Basophils (%) (Auto) 0% (0-3) Neutrophils # (Auto) 3.9x10^3uL (1.8-7.7) Lymphocytes # (Auto) 1.7x10^3/uL (1.0-4.8) Monocytes # (Auto) 1.2x10^3/uL (0.0-1.1) Eosinophils # (Auto) 0.3x10^3/uL (0.0-0.7) Basophils # (Auto) 0.0x10^3/uL (0.0-0.2) Sodium Level 138mmol/L (136-145) Potassium Level 6.7mmol/L (3.5-5.1) 6.3mmol/L (3.5-5.1) Chloride Level 104mmol/L (98-107) Carbon Dioxide Level 28mmol/L (21-32) Anion Gap 6 (6-14) Blood Urea Nitrogen 70mg/dL (8-26) Creatinine 2.8mg/dL (0.7-1.3) Estimated GFR (Cockcroft-Gault) 26.2 Glucose Level 191mg/dL (70-99) Calcium Level 9.0mg/dL (8.5-10.1) Troponin I Quantitative 0.024ng/mL (0.000-0.055) GC-Ctz-X-Type Natriuretic Peptide 1995pg/mL (0-449) Glucose (Fingerstick) 191mg/dL (70-99) Test 10/07/16 16:56 10/07/16 20:27 10/08/16 03:00 10/08/16 04:05 Glucose (Fingerstick) 194mg/dL (70-99) 251mg/dL (70-99) White Blood Count 7.0x10^3/uL (4.0-11.0) Red Blood Count 3.65x10^6/uL (4.30-5.70) Hemoglobin 12.1g/dL (13.0-17.5) Hematocrit 36.8% (39.0-53.0) Mean Corpuscular Volume 101fL (79-100) Mean Corpuscular Hemoglobin 33pg (25-35) Mean Corpuscular Hemoglobin Concent 33g/dL (31-37) Red Cell Distribution Width 14.2% (11.5-14.5) Platelet Count 100x10^3/uL (140-400) Neutrophils (%) (Auto) 60% (31-73) Lymphocytes (%) (Auto) 22% (24-48) Monocytes (%) (Auto) 15% (0-9) Eosinophils (%) (Auto) 3% (0-3) Basophils (%) (Auto) 0% (0-3) Neutrophils # (Auto) 4.2x10^3uL (1.8-7.7) Lymphocytes # (Auto) 1.5x10^3/uL (1.0-4.8) Monocytes # (Auto) 1.1x10^3/uL (0.0-1.1) Eosinophils # (Auto) 0.2x10^3/uL (0.0-0.7) Basophils # (Auto) 0.0x10^3/uL (0.0-0.2) Sodium Level 142mmol/L (136-145) Potassium Level 5.7mmol/L (3.5-5.1) Chloride Level 106mmol/L (98-107) Carbon Dioxide Level 30mmol/L (21-32) Anion Gap 6 (6-14) Blood Urea Nitrogen 61mg/dL (8-26) Creatinine 2.6mg/dL (0.7-1.3) Estimated GFR (Cockcroft-Gault) 28.5 BUN/Creatinine Ratio 23 (6-20) Glucose Level 218mg/dL (70-99) Calcium Level 8.3mg/dL (8.5-10.1) Magnesium Level 2.1mg/dL (1.8-2.4) Total Bilirubin 0.3mg/dL (0.2-1.0) Aspartate Amino Transf (AST/SGOT) 18U/L (15-37) Alanine Aminotransferase (ALT/SGPT) 30U/L (16-63) Alkaline Phosphatase 48U/L (46-116) Creatine Kinase 148U/L (39-308) Myoglobin 209ng/mL (16-96) Total Protein 6.7g/dL (6.4-8.2) Albumin 3.2g/dL (3.4-5.0) Albumin/Globulin Ratio 0.9 (1.0-1.7) Thyroid Stimulating Hormone (TSH) 0.746uIU/mL (0.358-3.74) Laboratory Tests Test 10/07/16 12:06 10/07/16 12:14 10/07/16 15:55 10/07/16 16:56 White Blood Count 7.0x10^3/uL (4.0-11.0) Red Blood Count 3.94x10^6/uL (4.30-5.70) Hemoglobin 13.0g/dL (13.0-17.5) Hematocrit 40.7% (39.0-53.0) Mean Corpuscular Volume 104fL (79-100) Mean Corpuscular Hemoglobin 33pg (25-35) Mean Corpuscular Hemoglobin Concent 32g/dL (31-37) Red Cell Distribution Width 13.9% (11.5-14.5) Platelet Count 107x10^3/uL (140-400) Neutrophils (%) (Auto) 55% (31-73) Lymphocytes (%) (Auto) 24% (24-48) Monocytes (%) (Auto) 17% (0-9) Eosinophils (%) (Auto) 4% (0-3) Basophils (%) (Auto) 0% (0-3) Neutrophils # (Auto) 3.9x10^3uL (1.8-7.7) Lymphocytes # (Auto) 1.7x10^3/uL (1.0-4.8) Monocytes # (Auto) 1.2x10^3/uL (0.0-1.1) Eosinophils # (Auto) 0.3x10^3/uL (0.0-0.7) Basophils # (Auto) 0.0x10^3/uL (0.0-0.2) Sodium Level 138mmol/L (136-145) Potassium Level 6.7mmol/L (3.5-5.1) 6.3mmol/L (3.5-5.1) Chloride Level 104mmol/L (98-107) Carbon Dioxide Level 28mmol/L (21-32) Anion Gap 6 (6-14) Blood Urea Nitrogen 70mg/dL (8-26) Creatinine 2.8mg/dL (0.7-1.3) Estimated GFR (Cockcroft-Gault) 26.2 Glucose Level 191mg/dL (70-99) Calcium Level 9.0mg/dL (8.5-10.1) Troponin I Quantitative 0.024ng/mL (0.000-0.055) ES-Ega-U-Type Natriuretic Peptide 1995pg/mL (0-449) Glucose (Fingerstick) 191mg/dL (70-99) 194mg/dL (70-99) Test 10/07/16 20:27 10/08/16 03:00 10/08/16 04:05 Glucose (Fingerstick) 251mg/dL (70-99) White Blood Count 7.0x10^3/uL (4.0-11.0) Red Blood Count 3.65x10^6/uL (4.30-5.70) Hemoglobin 12.1g/dL (13.0-17.5) Hematocrit 36.8% (39.0-53.0) Mean Corpuscular Volume 101fL (79-100) Mean Corpuscular Hemoglobin 33pg (25-35) Mean Corpuscular Hemoglobin Concent 33g/dL (31-37) Red Cell Distribution Width 14.2% (11.5-14.5) Platelet Count 100x10^3/uL (140-400) Neutrophils (%) (Auto) 60% (31-73) Lymphocytes (%) (Auto) 22% (24-48) Monocytes (%) (Auto) 15% (0-9) Eosinophils (%) (Auto) 3% (0-3) Basophils (%) (Auto) 0% (0-3) Neutrophils # (Auto) 4.2x10^3uL (1.8-7.7) Lymphocytes # (Auto) 1.5x10^3/uL (1.0-4.8) Monocytes # (Auto) 1.1x10^3/uL (0.0-1.1) Eosinophils # (Auto) 0.2x10^3/uL (0.0-0.7) Basophils # (Auto) 0.0x10^3/uL (0.0-0.2) Sodium Level 142mmol/L (136-145) Potassium Level 5.7mmol/L (3.5-5.1) Chloride Level 106mmol/L (98-107) Carbon Dioxide Level 30mmol/L (21-32) Anion Gap 6 (6-14) Blood Urea Nitrogen 61mg/dL (8-26) Creatinine 2.6mg/dL (0.7-1.3) Estimated GFR (Cockcroft-Gault) 28.5 BUN/Creatinine Ratio 23 (6-20) Glucose Level 218mg/dL (70-99) Calcium Level 8.3mg/dL (8.5-10.1) Magnesium Level 2.1mg/dL (1.8-2.4) Total Bilirubin 0.3mg/dL (0.2-1.0) Aspartate Amino Transf (AST/SGOT) 18U/L (15-37) Alanine Aminotransferase (ALT/SGPT) 30U/L (16-63) Alkaline Phosphatase 48U/L (46-116) Creatine Kinase 148U/L (39-308) Myoglobin 209ng/mL (16-96) Total Protein 6.7g/dL (6.4-8.2) Albumin 3.2g/dL (3.4-5.0) Albumin/Globulin Ratio 0.9 (1.0-1.7) Thyroid Stimulating Hormone (TSH) 0.746uIU/mL (0.358-3.74) Medications Current Medications Sodium Bicarbonate 50 meq 1X ONCE IV Last administered on 10/07/16 13:06; Start 10/07/16 at 12:45; Stop 10/07/16 at 12:46; Status DC Dextrose (Dextrose 50%-Water Syringe) 25 gm 1X ONCE IV Last administered on 13:06; Start 10/07/16 at 12:45; Stop 10/07/16 at 12:46; Status DC Insulin Human Regular (Novolin R Vial) 10 unit 1X ONCE IV Last administered on 10/07/16 13:08; Start 10/07/16 at 12:45; Stop 10/07/16 at 12:46; Status DC Ondansetron HCl 4 mg 4 mg PRN Q8HRS PRN IV NAUSEA/VOMITING; Start 10/07/16 at 12:45; Stop 10/07/16 at 13:59; Status DC Sodium Chloride (Iv Sodium Chloride 0.9% 1000ml Bag) 1,000 ml @ 75 mls/hr [id number] IV ; Start 10/07/16 at 12:39; Stop 10/07/16 at 14:06; Status DC Albuterol/ Ipratropium (Duoneb) 3 ml 1X ONCE NEB Last administered on 12:55; Start 10/07/16 at 13:00; Stop 10/07/16 at 13:01; Status DC Ondansetron HCl (Zofran) 4 mg PRN Q6HRS PRN IV NAUSEA/VOMITING; Start 10/07/16 at 13:57 Insulin Aspart (Novolog) 0-9 UNITS TIDWMEALS SQ Last administered on 10/08/16 09:12; Start 10/07/16 at 17:00 Dextrose (Dextrose 50%-Water Syringe) 12.5 gm PRN Q15MIN PRN IV SEE COMMENTS; Start 10/07/16 at 14:00 Albuterol/ Ipratropium (Duoneb) 3 ml RTQID NEB Last administered on 10/08/16 11:28; Start 10/07/16 at 16:00 Amlodipine Besylate (Norvasc) 10 mg DAILY PO Last administered on 10/08/16 08: 52; Start 10/07/16 at 15:00 Aspirin (Ecotrin) 81 mg DAILY PO Last administered on 10/08/16 08:50; Start at 15:00 Atorvastatin Calcium (Lipitor) 20 mg HS PO Last administered on 10/07/16 20:24 ; Start 10/07/16 at 21:00 EZETIMIBE (Zetia) 10 mg DAILY PO Last administered on 10/08/16 08:51; Start at 13:00 Finasteride (Proscar) 5 mg DAILY PO Last administered on 10/08/16 08:52; Start 10/07/16 at 13:00 Furosemide (Lasix) 40 mg HS PO Last administered on 10/07/16 20:25; Start at 21:00 Furosemide (Lasix) 80 mg DAILY PO Last administered on 10/08/16 08:52; Start 10/08/16 at 09:00 Gabapentin (Neurontin) 100 mg TID PO Last administered on 10/08/16 08:50; Start 10/07/16 at 15:00 Acetaminophen/ Hydrocodone Bitart (Lortab 5/325) 1 tab PRN Q6HRS PRN PO PAIN; Start 10/07/16 at 14:15 Niacin (Slo-Niacin) 1,000 mg HS PO Last administered on 10/07/16 20:25; Start 10/07/16 at 21:00 Pantoprazole Sodium (Protonix) 40 mg DAILYAC PO Last administered on 10/08/16 08:52; Start 10/07/16 at 15:00 Primidone (Mysoline) 200 mg HS PO Last administered on 10/07/16 20:24; Start 10/07/16 at 21:00 Tamsulosin HCl (Flomax) 0.4 mg HS PO Last administered on 10/07/16 20:25; Start 10/07/16 at 21:00 Dorzolamide HCl (Trusopt) 1 drop BID OU Last administered on 10/08/16 08:57; Start 10/07/16 at 21:00 Insulin Detemir (Levemir) 35 units QHS SQ Last administered on 10/07/16 20:32 ; Start 10/07/16 at 21:00 Insulin Aspart (Novolog) 20 units TIDWMEALS SQ Last administered on 10/08/16 09:11; Start 10/07/16 at 17:00 Non-Formulary Medication 2 inh QID IH ; Start 10/07/16 at 17:00; Status UNV Metoprolol Tartrate (Lopressor) 100 mg BID PO Last administered on 10/08/16 08 :51; Start 10/07/16 at 21:00 Linagliptin (Tradjenta) 5 mg DAILY PO Last administered on 10/08/16 08:50; Start 10/07/16 at 15:00 Latanoprost 1 drop 1 drop QHS OU Last administered on 10/07/16 20:25; Start at 21:00 Sodium Bicarbonate/ Sodium Chloride (Iv Sodium Chloride 0.45%) 1,050 ml @ 75 mls/hr Q14H IV Last administered on 10/08/16 08:57; Start 10/07/16 at 15:00 Sodium Polystyrene Sulfonate (Kayexalate) 30 gm 1X ONCE PO Last administered on 10/07/16 14:49; Start 10/07/16 at 14:45; Stop 10/07/16 at 14:46; Status DC Sodium Bicarbonate 50 meq 1X ONCE IV ; Start 10/07/16 at 15:30; Stop 10/07/16 at 15:31; Status DC Insulin Human Regular (Novolin R Vial) 10 unit 1X ONCE IV ; Start 10/07/16 at 15:30; Stop 10/07/16 at 15:31; Status DC Dextrose (Dextrose 50%-Water Syringe) 10 gm 1X ONCE IV ; Start 10/07/16 at 15: 30; Stop 10/07/16 at 15:31; Status DC Sodium Polystyrene Sulfonate (Kayexalate) 30 gm 1X ONCE PO ; Start 10/07/16 at 15:45; Stop 10/07/16 at 15:46; Status DC Furosemide (Lasix) 40 mg 1X ONCE IVP ; Start 10/07/16 at 15:30; Stop 10/07/16 at 15:31; Status DC Sulfur Hexafluoride Microspheres (Lumason) 25 mg STK-MED ONCE IVP ; Start at 10:55; Stop 10/08/16 at 10:56; Status DC Active Scripts Active [place] 5-325 Tablet (Acetaminophen/Hydrocodone Bitart) 1 Each Tablet 1 Tab PO PRN Q6HRS PRN Amlodipine Besylate 10 Mg Tablet 10 Mg PO DAILY Reported Furosemide 40 Mg Tablet 40 Mg PO HS Furosemide 80 Mg Tablet 80 Mg PO DAILY Meloxicam 15 Mg Tablet 15 Mg PO DAILY Combivent Respimat Inhal (Ipratropium/Albuterol Sulfate) 4 Gm Aer.w.adap 2 Inh IH QID Gabapentin 100 Mg Capsule 100 Mg PO TID Januvia (Sitagliptin Phosphate) 50 Mg Tablet 25 Mg PO DAILY Metoprolol Tartrate 100 Mg Tablet 1 Tab PO BID Niaspan (Niacin) 500 Mg Tab.er.24h 1,000 Mg PO HS Travatan Z (Travoprost) 5 Ml Drops 1 Drop EACHEYE QHS Humalog (Insulin Lispro) 100 Unit/1 Ml Insuln.pen 20 Unit SQ TIDAC Lantus (Insulin Glargine,Hum.rec.anlog) 100 Unit/1 Ml Vial 35 Unit SQ HS Primidone 50 Mg Tablet 200 Mg PO HS Pantoprazole Sodium 40 Mg Tablet. 1 Tab PO DAILY Lisinopril 20 Mg Tablet 1 Tab PO DAILY Finasteride 5 Mg Tablet 1 Tab PO DAILY Lipitor (Atorvastatin Calcium) 20 Mg Tablet 20 Mg PO HS Azopt (Brinzolamide) 10 Ml Drops.susp 10 Ml OP BID PRN Flomax (Tamsulosin Hcl) 0.4 Mg Cap.er.24h 0.4 Mg PO HS Zetia (Ezetimibe) 10 Mg Tablet 10 Mg PO DAILY Ecotrin (Aspirin) 81 Mg Tablet. 81 Mg PO Vitals/I & O Vital Sign - Last 24 Hours 10/07/16 10/07/16 10/07/16 10/07/16 11:45 12:15 12:45 12:57 Pulse 70 74 68 Resp 15 24 21 B/P 145/69 164/77 153/77 Pulse Ox 94 93 93 95 O2 Delivery Room Air 10/07/16 10/07/16 10/07/16 10/07/16 13:30 15:00 15:31 19:21 Temp 97.9 98.3 97.9 98.3 Pulse 70 74 Resp 18 16 B/P 169/76 119/57 Pulse Ox 93 95 95 95 O2 Delivery Room Air Room Air Room Air Room Air 10/07/16 10/07/16 10/07/16 10/07/16 19:45 19:49 20:24 22:50 Temp 98.2 98.0 98.2 98.0 Pulse 80 80 70 Resp 20 20 B/P 105/60 105/60 116/68 Pulse Ox 94 92 O2 Delivery Room Air Room Air Room Air 10/08/16 10/08/16 10/08/16 10/08/16 03:00 07:45 07:49 08:00 Temp 98.3 97.9 98.3 97.9 Pulse 73 70 Resp 20 18 B/P 127/72 136/72 Pulse Ox 92 96 95 O2 Delivery Room Air Room Air Room Air Room Air 10/08/16 10/08/16 10/08/16 10/08/16 08:51 08:52 11:01 11:28 Temp 97.4 97.4 Pulse 73 75 74 Resp 20 B/P 136/72 136/72 122/59 Pulse Ox 94 O2 Delivery Room Air Room Air Intake and Output 10/07/16 10/07/16 10/08/16 15:00 23:00 07:00 Intake Total 440 ml Output Total 300 ml 500 ml Balance -300 ml -60 ml GISELLA WICK III DO Oct 08, 2016 11:39
--- NOTE | 2016-10-08 11:44 | PDOC ---
PROGRESS NOTES Subjective Subjective Pt. with hx of BPH and CKD Objective Objective Vital Signs Date Time Temp Pulse Resp B/P Pulse Ox O2 Delivery O2 Flow Rate FiO2 10/08/16 11:28 Room Air 10/08/16 11:01 97.4 74 20 122/59 94 97.4 Intake and Output 10/08/16 06:59 Intake Total 440 ml Output Total 800 ml Balance -360 ml Intake Oral 440 ml Output Urine Total 500 ml Stool Total 300 ml # Voids 1 # Bowel Movements 1 Physical Exam Physical Exam ROX-30 gms Plan Plan of Care renal sono stay on flomax f/u with pt's regular urologist Dr. Nobles next week Problems Medical Problems: (1) Hyperkalemia Status: Acute (2) Weakness Status: Acute Comment Review of Relevant I have reviewed the following items anthony (where applicable) has been applied. Labs Laboratory Tests Test 10/07/16 11:11 10/07/16 12:06 10/07/16 12:14 10/07/16 15:55 Urine Collection Type U cath Urine Color Yellow Urine Clarity Clear Urine pH 6.0 Urine Specific [place] 1.015 Urine Protein Negativemg/dL (NEG-TRACE) Urine Glucose (UA) Negativemg/dL (NEG) Urine Ketones (Stick) Negativemg/dL (NEG) Urine Blood Moderate (NEG) Urine Nitrite Negative (NEG) Urine Bilirubin Negative (NEG) Urine Urobilinogen Dipstick 0.2mg/dL (0.2 mg/dL) Urine Leukocyte Esterase Negative (NEG) Urine RBC 20-40/HPF (0-2) Urine WBC 0/HPF (0-4) Urine Squamous Epithelial Cells /LPF Urine Bacteria 0/HPF (0-FEW) Urine Hyaline Casts Moderate/HPF Urine Mucus Slight/LPF White Blood Count 7.0x10^3/uL (4.0-11.0) Red Blood Count 3.94x10^6/uL (4.30-5.70) Hemoglobin 13.0g/dL (13.0-17.5) Hematocrit 40.7% (39.0-53.0) Mean Corpuscular Volume 104fL (79-100) Mean Corpuscular Hemoglobin 33pg (25-35) Mean Corpuscular Hemoglobin Concent 32g/dL (31-37) Red Cell Distribution Width 13.9% (11.5-14.5) Platelet Count 107x10^3/uL (140-400) Neutrophils (%) (Auto) 55% (31-73) Lymphocytes (%) (Auto) 24% (24-48) Monocytes (%) (Auto) 17% (0-9) Eosinophils (%) (Auto) 4% (0-3) Basophils (%) (Auto) 0% (0-3) Neutrophils # (Auto) 3.9x10^3uL (1.8-7.7) Lymphocytes # (Auto) 1.7x10^3/uL (1.0-4.8) Monocytes # (Auto) 1.2x10^3/uL (0.0-1.1) Eosinophils # (Auto) 0.3x10^3/uL (0.0-0.7) Basophils # (Auto) 0.0x10^3/uL (0.0-0.2) Sodium Level 138mmol/L (136-145) Potassium Level 6.7mmol/L (3.5-5.1) 6.3mmol/L (3.5-5.1) Chloride Level 104mmol/L (98-107) Carbon Dioxide Level 28mmol/L (21-32) Anion Gap 6 (6-14) Blood Urea Nitrogen 70mg/dL (8-26) Creatinine 2.8mg/dL (0.7-1.3) Estimated GFR (Cockcroft-Gault) 26.2 Glucose Level 191mg/dL (70-99) Calcium Level 9.0mg/dL (8.5-10.1) Troponin I Quantitative 0.024ng/mL (0.000-0.055) TX-Bzo-T-Type Natriuretic Peptide 1995pg/mL (0-449) Glucose (Fingerstick) 191mg/dL (70-99) Test 10/07/16 16:56 10/07/16 20:27 10/08/16 03:00 10/08/16 04:05 Glucose (Fingerstick) 194mg/dL (70-99) 251mg/dL (70-99) White Blood Count 7.0x10^3/uL (4.0-11.0) Red Blood Count 3.65x10^6/uL (4.30-5.70) Hemoglobin 12.1g/dL (13.0-17.5) Hematocrit 36.8% (39.0-53.0) Mean Corpuscular Volume 101fL (79-100) Mean Corpuscular Hemoglobin 33pg (25-35) Mean Corpuscular Hemoglobin Concent 33g/dL (31-37) Red Cell Distribution Width 14.2% (11.5-14.5) Platelet Count 100x10^3/uL (140-400) Neutrophils (%) (Auto) 60% (31-73) Lymphocytes (%) (Auto) 22% (24-48) Monocytes (%) (Auto) 15% (0-9) Eosinophils (%) (Auto) 3% (0-3) Basophils (%) (Auto) 0% (0-3) Neutrophils # (Auto) 4.2x10^3uL (1.8-7.7) Lymphocytes # (Auto) 1.5x10^3/uL (1.0-4.8) Monocytes # (Auto) 1.1x10^3/uL (0.0-1.1) Eosinophils # (Auto) 0.2x10^3/uL (0.0-0.7) Basophils # (Auto) 0.0x10^3/uL (0.0-0.2) Sodium Level 142mmol/L (136-145) Potassium Level 5.7mmol/L (3.5-5.1) Chloride Level 106mmol/L (98-107) Carbon Dioxide Level 30mmol/L (21-32) Anion Gap 6 (6-14) Blood Urea Nitrogen 61mg/dL (8-26) Creatinine 2.6mg/dL (0.7-1.3) Estimated GFR (Cockcroft-Gault) 28.5 BUN/Creatinine Ratio 23 (6-20) Glucose Level 218mg/dL (70-99) Calcium Level 8.3mg/dL (8.5-10.1) Magnesium Level 2.1mg/dL (1.8-2.4) Total Bilirubin 0.3mg/dL (0.2-1.0) Aspartate Amino Transf (AST/SGOT) 18U/L (15-37) Alanine Aminotransferase (ALT/SGPT) 30U/L (16-63) Alkaline Phosphatase 48U/L (46-116) Creatine Kinase 148U/L (39-308) Myoglobin 209ng/mL (16-96) Total Protein 6.7g/dL (6.4-8.2) Albumin 3.2g/dL (3.4-5.0) Albumin/Globulin Ratio 0.9 (1.0-1.7) Thyroid Stimulating Hormone (TSH) 0.746uIU/mL (0.358-3.74) Laboratory Tests Test 10/07/16 12:06 10/07/16 12:14 10/07/16 15:55 10/07/16 16:56 White Blood Count 7.0x10^3/uL (4.0-11.0) Red Blood Count 3.94x10^6/uL (4.30-5.70) Hemoglobin 13.0g/dL (13.0-17.5) Hematocrit 40.7% (39.0-53.0) Mean Corpuscular Volume 104fL (79-100) Mean Corpuscular Hemoglobin 33pg (25-35) Mean Corpuscular Hemoglobin Concent 32g/dL (31-37) Red Cell Distribution Width 13.9% (11.5-14.5) Platelet Count 107x10^3/uL (140-400) Neutrophils (%) (Auto) 55% (31-73) Lymphocytes (%) (Auto) 24% (24-48) Monocytes (%) (Auto) 17% (0-9) Eosinophils (%) (Auto) 4% (0-3) Basophils (%) (Auto) 0% (0-3) Neutrophils # (Auto) 3.9x10^3uL (1.8-7.7) Lymphocytes # (Auto) 1.7x10^3/uL (1.0-4.8) Monocytes # (Auto) 1.2x10^3/uL (0.0-1.1) Eosinophils # (Auto) 0.3x10^3/uL (0.0-0.7) Basophils # (Auto) 0.0x10^3/uL (0.0-0.2) Sodium Level 138mmol/L (136-145) Potassium Level 6.7mmol/L (3.5-5.1) 6.3mmol/L (3.5-5.1) Chloride Level 104mmol/L (98-107) Carbon Dioxide Level 28mmol/L (21-32) Anion Gap 6 (6-14) Blood Urea Nitrogen 70mg/dL (8-26) Creatinine 2.8mg/dL (0.7-1.3) Estimated GFR (Cockcroft-Gault) 26.2 Glucose Level 191mg/dL (70-99) Calcium Level 9.0mg/dL (8.5-10.1) Troponin I Quantitative 0.024ng/mL (0.000-0.055) XZ-Pay-N-Type Natriuretic Peptide 1995pg/mL (0-449) Glucose (Fingerstick) 191mg/dL (70-99) 194mg/dL (70-99) Test 10/07/16 20:27 10/08/16 03:00 10/08/16 04:05 Glucose (Fingerstick) 251mg/dL (70-99) White Blood Count 7.0x10^3/uL (4.0-11.0) Red Blood Count 3.65x10^6/uL (4.30-5.70) Hemoglobin 12.1g/dL (13.0-17.5) Hematocrit 36.8% (39.0-53.0) Mean Corpuscular Volume 101fL (79-100) Mean Corpuscular Hemoglobin 33pg (25-35) Mean Corpuscular Hemoglobin Concent 33g/dL (31-37) Red Cell Distribution Width 14.2% (11.5-14.5) Platelet Count 100x10^3/uL (140-400) Neutrophils (%) (Auto) 60% (31-73) Lymphocytes (%) (Auto) 22% (24-48) Monocytes (%) (Auto) 15% (0-9) Eosinophils (%) (Auto) 3% (0-3) Basophils (%) (Auto) 0% (0-3) Neutrophils # (Auto) 4.2x10^3uL (1.8-7.7) Lymphocytes # (Auto) 1.5x10^3/uL (1.0-4.8) Monocytes # (Auto) 1.1x10^3/uL (0.0-1.1) Eosinophils # (Auto) 0.2x10^3/uL (0.0-0.7) Basophils # (Auto) 0.0x10^3/uL (0.0-0.2) Sodium Level 142mmol/L (136-145) Potassium Level 5.7mmol/L (3.5-5.1) Chloride Level 106mmol/L (98-107) Carbon Dioxide Level 30mmol/L (21-32) Anion Gap 6 (6-14) Blood Urea Nitrogen 61mg/dL (8-26) Creatinine 2.6mg/dL (0.7-1.3) Estimated GFR (Cockcroft-Gault) 28.5 BUN/Creatinine Ratio 23 (6-20) Glucose Level 218mg/dL (70-99) Calcium Level 8.3mg/dL (8.5-10.1) Magnesium Level 2.1mg/dL (1.8-2.4) Total Bilirubin 0.3mg/dL (0.2-1.0) Aspartate Amino Transf (AST/SGOT) 18U/L (15-37) Alanine Aminotransferase (ALT/SGPT) 30U/L (16-63) Alkaline Phosphatase 48U/L (46-116) Creatine Kinase 148U/L (39-308) Myoglobin 209ng/mL (16-96) Total Protein 6.7g/dL (6.4-8.2) Albumin 3.2g/dL (3.4-5.0) Albumin/Globulin Ratio 0.9 (1.0-1.7) Thyroid Stimulating Hormone (TSH) 0.746uIU/mL (0.358-3.74) Medications Current Medications Sodium Bicarbonate 50 meq 1X ONCE IV Last administered on 10/07/16 13:06; Start 10/07/16 at 12:45; Stop 10/07/16 at 12:46; Status DC Dextrose (Dextrose 50%-Water Syringe) 25 gm 1X ONCE IV Last administered on 13:06; Start 10/07/16 at 12:45; Stop 10/07/16 at 12:46; Status DC Insulin Human Regular (Novolin R Vial) 10 unit 1X ONCE IV Last administered on 10/07/16 13:08; Start 10/07/16 at 12:45; Stop 10/07/16 at 12:46; Status DC Ondansetron HCl 4 mg 4 mg PRN Q8HRS PRN IV NAUSEA/VOMITING; Start 10/07/16 at 12:45; Stop 10/07/16 at 13:59; Status DC Sodium Chloride (Iv Sodium Chloride 0.9% 1000ml Bag) 1,000 ml @ 75 mls/hr [id number] IV ; Start 10/07/16 at 12:39; Stop 10/07/16 at 14:06; Status DC Albuterol/ Ipratropium (Duoneb) 3 ml 1X ONCE NEB Last administered on 12:55; Start 10/07/16 at 13:00; Stop 10/07/16 at 13:01; Status DC Ondansetron HCl (Zofran) 4 mg PRN Q6HRS PRN IV NAUSEA/VOMITING; Start 10/07/16 at 13:57 Insulin Aspart (Novolog) 0-9 UNITS TIDWMEALS SQ Last administered on 10/08/16 09:12; Start 10/07/16 at 17:00 Dextrose (Dextrose 50%-Water Syringe) 12.5 gm PRN Q15MIN PRN IV SEE COMMENTS; Start 10/07/16 at 14:00 Albuterol/ Ipratropium (Duoneb) 3 ml RTQID NEB Last administered on 10/08/16 11:28; Start 10/07/16 at 16:00 Amlodipine Besylate (Norvasc) 10 mg DAILY PO Last administered on 10/08/16 08: 52; Start 10/07/16 at 15:00 Aspirin (Ecotrin) 81 mg DAILY PO Last administered on 10/08/16 08:50; Start at 15:00 Atorvastatin Calcium (Lipitor) 20 mg HS PO Last administered on 10/07/16 20:24 ; Start 10/07/16 at 21:00 EZETIMIBE (Zetia) 10 mg DAILY PO Last administered on 10/08/16 08:51; Start at 13:00 Finasteride (Proscar) 5 mg DAILY PO Last administered on 10/08/16 08:52; Start 10/07/16 at 13:00 Furosemide (Lasix) 40 mg HS PO Last administered on 10/07/16 20:25; Start at 21:00 Furosemide (Lasix) 80 mg DAILY PO Last administered on 10/08/16 08:52; Start 10/08/16 at 09:00 Gabapentin (Neurontin) 100 mg TID PO Last administered on 10/08/16 08:50; Start 10/07/16 at 15:00 Acetaminophen/ Hydrocodone Bitart (Lortab 5/325) 1 tab PRN Q6HRS PRN PO PAIN; Start 10/07/16 at 14:15 Niacin (Slo-Niacin) 1,000 mg HS PO Last administered on 10/07/16 20:25; Start 10/07/16 at 21:00 Pantoprazole Sodium (Protonix) 40 mg DAILYAC PO Last administered on 10/08/16 08:52; Start 10/07/16 at 15:00 Primidone (Mysoline) 200 mg HS PO Last administered on 10/07/16 20:24; Start 10/07/16 at 21:00 Tamsulosin HCl (Flomax) 0.4 mg HS PO Last administered on 10/07/16 20:25; Start 10/07/16 at 21:00 Dorzolamide HCl (Trusopt) 1 drop BID OU Last administered on 10/08/16 08:57; Start 10/07/16 at 21:00 Insulin Detemir (Levemir) 35 units QHS SQ Last administered on 10/07/16 20:32 ; Start 10/07/16 at 21:00 Insulin Aspart (Novolog) 20 units TIDWMEALS SQ Last administered on 10/08/16 09:11; Start 10/07/16 at 17:00 Non-Formulary Medication 2 inh QID IH ; Start 10/07/16 at 17:00; Status UNV Metoprolol Tartrate (Lopressor) 100 mg BID PO Last administered on 10/08/16 08 :51; Start 10/07/16 at 21:00 Linagliptin (Tradjenta) 5 mg DAILY PO Last administered on 10/08/16 08:50; Start 10/07/16 at 15:00 Latanoprost 1 drop 1 drop QHS OU Last administered on 10/07/16 20:25; Start at 21:00 Sodium Bicarbonate/ Sodium Chloride (Iv Sodium Chloride 0.45%) 1,050 ml @ 75 mls/hr Q14H IV Last administered on 10/08/16 08:57; Start 10/07/16 at 15:00 Sodium Polystyrene Sulfonate (Kayexalate) 30 gm 1X ONCE PO Last administered on 10/07/16 14:49; Start 10/07/16 at 14:45; Stop 10/07/16 at 14:46; Status DC Sodium Bicarbonate 50 meq 1X ONCE IV ; Start 10/07/16 at 15:30; Stop 10/07/16 at 15:31; Status DC Insulin Human Regular (Novolin R Vial) 10 unit 1X ONCE IV ; Start 10/07/16 at 15:30; Stop 10/07/16 at 15:31; Status DC Dextrose (Dextrose 50%-Water Syringe) 10 gm 1X ONCE IV ; Start 10/07/16 at 15: 30; Stop 10/07/16 at 15:31; Status DC Sodium Polystyrene Sulfonate (Kayexalate) 30 gm 1X ONCE PO ; Start 10/07/16 at 15:45; Stop 10/07/16 at 15:46; Status DC Furosemide (Lasix) 40 mg 1X ONCE IVP ; Start 10/07/16 at 15:30; Stop 10/07/16 at 15:31; Status DC Sulfur Hexafluoride Microspheres (Lumason) 25 mg STK-MED ONCE IVP ; Start at 10:55; Stop 10/08/16 at 10:56; Status DC Active Scripts Active [place] 5-325 Tablet (Acetaminophen/Hydrocodone Bitart) 1 Each Tablet 1 Tab PO PRN Q6HRS PRN Amlodipine Besylate 10 Mg Tablet 10 Mg PO DAILY Reported Furosemide 40 Mg Tablet 40 Mg PO HS Furosemide 80 Mg Tablet 80 Mg PO DAILY Meloxicam 15 Mg Tablet 15 Mg PO DAILY Combivent Respimat Inhal (Ipratropium/Albuterol Sulfate) 4 Gm Aer.w.adap 2 Inh IH QID Gabapentin 100 Mg Capsule 100 Mg PO TID Januvia (Sitagliptin Phosphate) 50 Mg Tablet 25 Mg PO DAILY Metoprolol Tartrate 100 Mg Tablet 1 Tab PO BID Niaspan (Niacin) 500 Mg Tab.er.24h 1,000 Mg PO HS Travatan Z (Travoprost) 5 Ml Drops 1 Drop EACHEYE QHS Humalog (Insulin Lispro) 100 Unit/1 Ml Insuln.pen 20 Unit SQ TIDAC Lantus (Insulin Glargine,Hum.rec.anlog) 100 Unit/1 Ml Vial 35 Unit SQ HS Primidone 50 Mg Tablet 200 Mg PO HS Pantoprazole Sodium 40 Mg Tablet. 1 Tab PO DAILY Lisinopril 20 Mg Tablet 1 Tab PO DAILY Finasteride 5 Mg Tablet 1 Tab PO DAILY Lipitor (Atorvastatin Calcium) 20 Mg Tablet 20 Mg PO HS Azopt (Brinzolamide) 10 Ml Drops.susp 10 Ml OP BID PRN Flomax (Tamsulosin Hcl) 0.4 Mg Cap.er.24h 0.4 Mg PO HS Zetia (Ezetimibe) 10 Mg Tablet 10 Mg PO DAILY Ecotrin (Aspirin) 81 Mg Tablet. 81 Mg PO Vitals/I & O Vital Sign - Last 24 Hours 10/07/16 10/07/16 10/07/16 10/07/16 11:45 12:15 12:45 12:57 Pulse 70 74 68 Resp 15 21 B/P 145/69 164/77 153/77 Pulse Ox 94 93 93 95 O2 Delivery Room Air 10/07/16 10/07/16 10/07/16 10/07/16 13:30 15:00 15:31 19:21 Temp 97.9 98.3 97.9 98.3 Pulse 70 74 Resp 18 16 B/P 169/76 119/57 Pulse Ox 93 95 95 95 O2 Delivery Room Air Room Air Room Air Room Air 10/07/16 10/07/16 10/07/16 10/07/16 19:45 19:49 20:24 22:50 Temp 98.2 98.0 98.2 98.0 Pulse 80 80 70 Resp 20 20 B/P 105/60 105/60 116/68 Pulse Ox 94 92 O2 Delivery Room Air Room Air Room Air 10/08/16 10/08/16 10/08/16 10/08/16 03:00 07:45 07:49 08:00 Temp 98.3 97.9 98.3 97.9 Pulse 73 70 Resp 20 18 B/P 127/72 136/72 Pulse Ox 92 96 95 O2 Delivery Room Air Room Air Room Air Room Air 10/08/16 10/08/16 10/08/16 10/08/16 08:51 08:52 11:01 11:28 Temp 97.4 97.4 Pulse 73 75 74 Resp 20 B/P 136/72 136/72 122/59 Pulse Ox 94 O2 Delivery Room Air Room Air Intake and Output 10/07/16 10/07/16 10/08/16 14:59 22:59 06:59 Intake Total 440 ml Output Total 300 ml 500 ml Balance -300 ml -60 ml PEDRO BARRON MD Oct 08, 2016 11:44
[2016-10-08] MEDS: TAMSULOSIN 0.4 MG CAP.ER.24H. PO SCH ×2 (12:15→21:36)
[2016-10-08] MEDS ORDERED: SODIUM POLYSTYRENE SULFONATE 15 GM/60 ML ORAL.SUSP. PO ONE (12:15)
--- NOTE | 2016-10-08 12:43 | CARD ---
APPROVED REPORT EXAM: Two-dimensional and M-mode echocardiogram with Doppler and color Doppler. Other Information Quality : AverageHR: 73bpm Rhythm : NSR INDICATION Cardiac Disease: CAD Echo Enhancing Agent Agent/Amount Used: Lumason 2mL RISK FACTORS Obesity 2D DIMENSIONS RVDd3.4 (2.9-3.5cm)Left Atrium(2D)3.6 (1.6-4.0cm) IVSd1.3 (0.7-1.1cm)Aortic Root(2D)3.2 (2.0-3.7cm) LVDd5.6 (3.9-5.9cm)LVOT Diameter2.3 (1.8-2.4cm) PWd0.3 (0.7-1.1cm) Aortic Valve AoV Peak Rick.131.0cm/sAoV VTI30.3cm AO Peak GR.6.9mmHgLVOT Peak Rick.107.1cm/s AO Mean GR.4mmHg Mitral Valve MV E Jqpgiqpz13.1cm/sMV E Peak Gr.3mmHg MV DECEL [id number] A Bwdxkwsx02.2cm/s MV E Mean Gr.1mmHgE/A Ratio0.9 MV A [id number] Pulmonary Vein S1 Ukpqffvs32.6cm/sD2 Qsszqpxb59.6cm/s PVa [id number] LEFT VENTRICLE The left ventricle is normal size. There is mild concentric left ventricular hypertrophy. The left ve ntricular systolic function is normal and the ejection fraction is within normal range. The Ejection Fraction is 55-60%. Grossly normal wall motion. Not able to be well visualized. Transmitral Doppler f low pattern is Grade I-abnormal relaxation pattern. RIGHT VENTRICLE The right ventricle is normal size. There is normal right ventricular wall thickness. The right ventr icular systolic function is normal. ATRIA The left atrium is mildly dilated. The right atrium size is normal. The interatrial septum is intact with no evidence for an atrial septal defect or patent foramen ovale as noted on 2-D or Doppler imagi ng. AORTIC VALVE The aortic valve is not well visualized but appears to open well. Doppler and Color Flow revealed tra ce aortic regurgitation. There is no significant aortic valvular stenosis. MITRAL VALVE The mitral valve is not well visualized but appears to open well. There is no evidence of mitral valv e prolapse. There is no mitral valve stenosis. Doppler and Color Flow revealed trace mitral regurgita tion. TRICUSPID VALVE The tricuspid valve is not well visualized but appears to open well. Doppler and Color Flow revealed trace tricuspid regurgitation. There is no pulmonary hypertension. PULMONIC VALVE The pulmonic valve is not well visualized. Doppler and Color Flow revealed no pulmonic valvular regur gitation. There is no pulmonic valvular stenosis. GREAT VESSELS The aortic root is normal in size. The ascending aorta is normal in size. The IVC was not visualized. PERICARDIAL EFFUSION There is no evidence of significant pericardial effusion. Critical Notification Critical Value: No <Conclusion> The left ventricular systolic function is normal and the ejection fraction is within normal range. Th e Ejection Fraction is 55-60%. Grossly normal wall motion. Not able to be well visualized despite contrast use.
[2016-10-08] MEDS: GABAPENTIN 300 MG CAPSULE. PO SCH ×2 (13:36→21:36)
[2016-10-08 15:12] VITALS: BP 125/49
[2016-10-08 19:30] VITALS: BP 112/43
[2016-10-08] MEDS ORDERED: INSULIN DETEMIR 300 UNITS/3 ML INSULN.PEN. SQ SCH (21:00)
[2016-10-08] MEDS: LATANOPROST 0.005% OPHTH SOLUTION 2.5ML BOTTLE. OU SCH (21:34)
[2016-10-08] MEDS: FUROSEMIDE 40 MG TABLET. PO SCH (21:35)
[2016-10-08] MEDS: NIACIN ER 500 MG TABLET.ER PO SCH (21:36)
[2016-10-08] MEDS: ATORVASTATIN CALCIUM 20 MG TABLET PO SCH (21:36)
[2016-10-08] MEDS: PRIMIDONE 50 MG TABLET PO SCH (21:37)
--- NOTE | 2016-10-08 23:19 | PDOC2 ---
CONSULT Date of Consult Date of Consult DATE: 10/08/16 TIME: 23:17 Past Medical History Cardiovascular: CAD, CHF, HTN, Hyperlipidemia, Other Pulmonary: COPD, Other CENTRAL NERVOUS SYSTEM: Dementia, Vertigo GI: GERD, Other Heme/Onc: Anemia NOS Hepatobiliary: No pertinent hx Psych: No pertinent hx Musculoskeletal: Osteoarthritis Rheumatologic: No pertinent hx Infectious disease: No pertinent hx Renal/: Chronic renal insuff, Benign prostatic enlarg. Endocrine: Diabetes Past Surgical History Past Surgical History: Pacemaker, Cholecystectomy, Other Family History Family History: Cancer, Heart Disease Social History No ALCOHOL: none Drugs: None Lives: Alone Domestic Violence: Neg Current Problem List Problem List Problems Medical Problems: (1) Hyperkalemia Status: Acute (2) Weakness Status: Acute Current Medications Current Medications Current Medications Sodium Bicarbonate 50 meq 1X ONCE IV Last administered on 10/07/16 13:06; Start 10/07/16 at 12:45; Stop 10/07/16 at 12:46; Status DC Dextrose (Dextrose 50%-Water Syringe) 25 gm 1X ONCE IV Last administered on 13:06; Start 10/07/16 at 12:45; Stop 10/07/16 at 12:46; Status DC Insulin Human Regular (Novolin R Vial) 10 unit 1X ONCE IV Last administered on 10/07/16 13:08; Start 10/07/16 at 12:45; Stop 10/07/16 at 12:46; Status DC Ondansetron HCl 4 mg 4 mg PRN Q8HRS PRN IV NAUSEA/VOMITING; Start 10/07/16 at 12:45; Stop 10/07/16 at 13:59; Status DC Sodium Chloride (Iv Sodium Chloride 0.9% 1000ml Bag) 1,000 ml @ 75 mls/hr [id number] IV ; Start 10/07/16 at 12:39; Stop 10/07/16 at 14:06; Status DC Albuterol/ Ipratropium (Duoneb) 3 ml 1X ONCE NEB Last administered on 12:55; Start 10/07/16 at 13:00; Stop 10/07/16 at 13:01; Status DC Ondansetron HCl (Zofran) 4 mg PRN Q6HRS PRN IV NAUSEA/VOMITING; Start 10/07/16 at 13:57 Insulin Aspart (Novolog) 0-9 UNITS TIDWMEALS SQ Last administered on 10/08/16 09:12; Start 10/07/16 at 17:00 Dextrose (Dextrose 50%-Water Syringe) 12.5 gm PRN Q15MIN PRN IV SEE COMMENTS; Start 10/07/16 at 14:00 Albuterol/ Ipratropium (Duoneb) 3 ml RTQID NEB Last administered on 10/08/16 19:36; Start 10/07/16 at 16:00 Amlodipine Besylate (Norvasc) 10 mg DAILY PO Last administered on 10/08/16 08: 52; Start 10/07/16 at 15:00 Aspirin (Ecotrin) 81 mg DAILY PO Last administered on 10/08/16 08:50; Start at 15:00 Atorvastatin Calcium (Lipitor) 20 mg HS PO Last administered on 10/08/16 21:36 ; Start 10/07/16 at 21:00 EZETIMIBE (Zetia) 10 mg DAILY PO Last administered on 10/08/16 08:51; Start at 13:00 Finasteride (Proscar) 5 mg DAILY PO Last administered on 10/08/16 08:52; Start 10/07/16 at 13:00 Furosemide (Lasix) 40 mg HS PO Last administered on 10/08/16 21:35; Start at 21:00 Furosemide (Lasix) 80 mg DAILY PO Last administered on 10/08/16 08:52; Start 10/08/16 at 09:00 Gabapentin (Neurontin) 100 mg TID PO Last administered on 10/08/16 08:50; Start 10/07/16 at 15:00; Stop 10/08/16 at 11:56; Status DC Acetaminophen/ Hydrocodone Bitart (Lortab 5/325) 1 tab PRN Q6HRS PRN PO PAIN; Start 10/07/16 at 14:15 Niacin (Slo-Niacin) 1,000 mg HS PO Last administered on 10/08/16 21:36; Start 10/07/16 at 21:00 Pantoprazole Sodium (Protonix) 40 mg DAILYAC PO Last administered on 10/08/16 08:52; Start 10/07/16 at 15:00 Primidone (Mysoline) 200 mg HS PO Last administered on 10/08/16 21:37; Start 10/07/16 at 21:00 Tamsulosin HCl (Flomax) 0.4 mg HS PO Last administered on 10/07/16 20:25; Start 10/07/16 at 21:00; Stop 10/08/16 at 11:45; Status DC Dorzolamide HCl (Trusopt) 1 drop BID OU Last administered on 10/08/16 21:34; Start 10/07/16 at 21:00 Insulin Detemir (Levemir) 35 units QHS SQ Last administered on 10/07/16 20:32 ; Start 10/07/16 at 21:00; Stop 10/08/16 at 11:56; Status DC Insulin Aspart (Novolog) 20 units TIDWMEALS SQ Last administered on 10/08/16 09:11; Start 10/07/16 at 17:00; Stop 10/08/16 at 11:56; Status DC Non-Formulary Medication 2 inh QID IH ; Start 10/07/16 at 17:00; Status UNV Metoprolol Tartrate (Lopressor) 100 mg BID PO Last administered on 10/08/16 21 :38; Start 10/07/16 at 21:00 Linagliptin (Tradjenta) 5 mg DAILY PO Last administered on 10/08/16 08:50; Start 10/07/16 at 15:00 Latanoprost 1 drop 1 drop QHS OU Last administered on 10/08/16 21:34; Start at 21:00 Sodium Bicarbonate/ Sodium Chloride (Iv Sodium Chloride 0.45%) 1,050 ml @ 75 mls/hr Q14H IV Last administered on 10/08/16 08:57; Start 10/07/16 at 15:00 Sodium Polystyrene Sulfonate (Kayexalate) 30 gm 1X ONCE PO Last administered on 10/07/16 14:49; Start 10/07/16 at 14:45; Stop 10/07/16 at 14:46; Status DC Sodium Bicarbonate 50 meq 1X ONCE IV ; Start 10/07/16 at 15:30; Stop 10/07/16 at 15:31; Status DC Insulin Human Regular (Novolin R Vial) 10 unit 1X ONCE IV ; Start 10/07/16 at 15:30; Stop 10/07/16 at 15:31; Status DC Dextrose (Dextrose 50%-Water Syringe) 10 gm 1X ONCE IV ; Start 10/07/16 at 15: 30; Stop 10/07/16 at 15:31; Status DC Sodium Polystyrene Sulfonate (Kayexalate) 30 gm 1X ONCE PO ; Start 10/07/16 at 15:45; Stop 10/07/16 at 15:46; Status DC Furosemide (Lasix) 40 mg 1X ONCE IVP ; Start 10/07/16 at 15:30; Stop 10/07/16 at 15:31; Status DC Sulfur Hexafluoride Microspheres (Lumason) 25 mg STK-MED ONCE IVP ; Start at 10:55; Stop 10/08/16 at 10:56; Status DC Tamsulosin HCl (Flomax) 0.4 mg BID PO Last administered on 10/08/16 21:36; Start 10/08/16 at 12:00 Gabapentin (Neurontin) 300 mg TID PO Last administered on 10/08/16 21:36; Start 10/08/16 at 14:00 Insulin Aspart (Novolog) 35 units TIDWMEALS SQ Last administered on 10/08/16 18:05; Start 10/08/16 at 12:00 Insulin Detemir (Levemir) 75 units QHS SQ Last administered on 10/08/16 21:44 ; Start 10/08/16 at 21:00 Sulfur Hexafluoride Microspheres (Lumason) 25 mg 1X ONCE IVP Last administered on 10/08/16 12:01; Start 10/08/16 at 12:00; Stop 10/08/16 at 12:01 ; Status DC Sodium Polystyrene Sulfonate (Kayexalate) 15 gm 1X ONCE PO Last administered on 10/08/16 13:35; Start 10/08/16 at 12:15; Stop 10/08/16 at 12:16; Status DC Active Scripts Active [place] 5-325 Tablet (Acetaminophen/Hydrocodone Bitart) 1 Each Tablet 1 Tab PO PRN Q6HRS PRN Amlodipine Besylate 10 Mg Tablet 10 Mg PO DAILY Reported Furosemide 40 Mg Tablet 40 Mg PO HS Furosemide 80 Mg Tablet 80 Mg PO DAILY Meloxicam 15 Mg Tablet 15 Mg PO DAILY Combivent Respimat Inhal (Ipratropium/Albuterol Sulfate) 4 Gm Aer.w.adap 2 Inh IH QID Gabapentin 100 Mg Capsule 100 Mg PO TID Januvia (Sitagliptin Phosphate) 50 Mg Tablet 25 Mg PO DAILY Metoprolol Tartrate 100 Mg Tablet 1 Tab PO BID Niaspan (Niacin) 500 Mg Tab.er.24h 1,000 Mg PO HS Travatan Z (Travoprost) 5 Ml Drops 1 Drop EACHEYE QHS Humalog (Insulin Lispro) 100 Unit/1 Ml Insuln.pen 20 Unit SQ TIDAC Lantus (Insulin Glargine,Hum.rec.anlog) 100 Unit/1 Ml Vial 35 Unit SQ HS Primidone 50 Mg Tablet 200 Mg PO HS Pantoprazole Sodium 40 Mg Tablet.dr 1 Tab PO DAILY Lisinopril 20 Mg Tablet 1 Tab PO DAILY Finasteride 5 Mg Tablet 1 Tab PO DAILY Lipitor (Atorvastatin Calcium) 20 Mg Tablet 20 Mg PO HS Azopt (Brinzolamide) 10 Ml Drops.susp 10 Ml OP BID PRN Flomax (Tamsulosin Hcl) 0.4 Mg Cap.er.24h 0.4 Mg PO HS Zetia (Ezetimibe) 10 Mg Tablet 10 Mg PO DAILY Ecotrin (Aspirin) 81 Mg Tablet.dr 81 Mg PO Allergies Allergies: Coded Allergies: No Known Drug Allergies (Unverified , 08/02/13) Vitals VITALS Vital Signs Date Time Temp Pulse Resp B/P Pulse Ox O2 Delivery O2 Flow Rate FiO2 10/08/16 21:38 71 112/43 10/08/16 19:36 98 Room Air 10/08/16 19:30 98.2 20 98.2 Labs Labs Laboratory Tests Test 10/07/16 11:11 10/07/16 12:06 10/07/16 12:14 10/07/16 15:55 Urine Collection Type U cath Urine Color Yellow Urine Clarity Clear Urine pH 6.0 Urine Specific [place] 1.015 Urine Protein Negativemg/dL (NEG-TRACE) Urine Glucose (UA) Negativemg/dL (NEG) Urine Ketones (Stick) Negativemg/dL (NEG) Urine Blood Moderate (NEG) Urine Nitrite Negative (NEG) Urine Bilirubin Negative (NEG) Urine Urobilinogen Dipstick 0.2mg/dL (0.2 mg/dL) Urine Leukocyte Esterase Negative (NEG) Urine RBC 20-40/HPF (0-2) Urine WBC 0/HPF (0-4) Urine Squamous Epithelial Cells /LPF Urine Bacteria 0/HPF (0-FEW) Urine Hyaline Casts Moderate/HPF Urine Mucus Slight/LPF White Blood Count 7.0x10^3/uL (4.0-11.0) Red Blood Count 3.94x10^6/uL (4.30-5.70) Hemoglobin 13.0g/dL (13.0-17.5) Hematocrit 40.7% (39.0-53.0) Mean Corpuscular Volume 104fL (79-100) Mean Corpuscular Hemoglobin 33pg (25-35) Mean Corpuscular Hemoglobin Concent 32g/dL (31-37) Red Cell Distribution Width 13.9% (11.5-14.5) Platelet Count 107x10^3/uL (140-400) Neutrophils (%) (Auto) 55% (31-73) Lymphocytes (%) (Auto) 24% (24-48) Monocytes (%) (Auto) 17% (0-9) Eosinophils (%) (Auto) 4% (0-3) Basophils (%) (Auto) 0% (0-3) Neutrophils # (Auto) 3.9x10^3uL (1.8-7.7) Lymphocytes # (Auto) 1.7x10^3/uL (1.0-4.8) Monocytes # (Auto) 1.2x10^3/uL (0.0-1.1) Eosinophils # (Auto) 0.3x10^3/uL (0.0-0.7) Basophils # (Auto) 0.0x10^3/uL (0.0-0.2) Sodium Level 138mmol/L (136-145) Potassium Level 6.7mmol/L (3.5-5.1) 6.3mmol/L (3.5-5.1) Chloride Level 104mmol/L (98-107) Carbon Dioxide Level 28mmol/L (21-32) Anion Gap 6 (6-14) Blood Urea Nitrogen 70mg/dL (8-26) Creatinine 2.8mg/dL (0.7-1.3) Estimated GFR (Cockcroft-Gault) 26.2 Glucose Level 191mg/dL (70-99) Calcium Level 9.0mg/dL (8.5-10.1) Troponin I Quantitative 0.024ng/mL (0.000-0.055) RE-Cza-L-Type Natriuretic Peptide 1995pg/mL (0-449) Glucose (Fingerstick) 191mg/dL (70-99) Test 10/07/16 16:56 10/07/16 20:27 10/08/16 03:00 10/08/16 04:05 Glucose (Fingerstick) 194mg/dL (70-99) 251mg/dL (70-99) White Blood Count 7.0x10^3/uL (4.0-11.0) Red Blood Count 3.65x10^6/uL (4.30-5.70) Hemoglobin 12.1g/dL (13.0-17.5) Hematocrit 36.8% (39.0-53.0) Mean Corpuscular Volume 101fL (79-100) Mean Corpuscular Hemoglobin 33pg (25-35) Mean Corpuscular Hemoglobin Concent 33g/dL (31-37) Red Cell Distribution Width 14.2% (11.5-14.5) Platelet Count 100x10^3/uL (140-400) Neutrophils (%) (Auto) 60% (31-73) Lymphocytes (%) (Auto) 22% (24-48) Monocytes (%) (Auto) 15% (0-9) Eosinophils (%) (Auto) 3% (0-3) Basophils (%) (Auto) 0% (0-3) Neutrophils # (Auto) 4.2x10^3uL (1.8-7.7) Lymphocytes # (Auto) 1.5x10^3/uL (1.0-4.8) Monocytes # (Auto) 1.1x10^3/uL (0.0-1.1) Eosinophils # (Auto) 0.2x10^3/uL (0.0-0.7) Basophils # (Auto) 0.0x10^3/uL (0.0-0.2) Hemoglobin A1c 7.8% (4.8-5.6) Sodium Level 142mmol/L (136-145) Potassium Level 5.7mmol/L (3.5-5.1) Chloride Level 106mmol/L (98-107) Carbon Dioxide Level 30mmol/L (21-32) Anion Gap 6 (6-14) Blood Urea Nitrogen 61mg/dL (8-26) Creatinine 2.6mg/dL (0.7-1.3) Estimated GFR (Cockcroft-Gault) 28.5 BUN/Creatinine Ratio 23 (6-20) Glucose Level 218mg/dL (70-99) Calcium Level 8.3mg/dL (8.5-10.1) Magnesium Level 2.1mg/dL (1.8-2.4) Total Bilirubin 0.3mg/dL (0.2-1.0) Aspartate Amino Transf (AST/SGOT) 18U/L (15-37) Alanine Aminotransferase (ALT/SGPT) 30U/L (16-63) Alkaline Phosphatase 48U/L (46-116) Creatine Kinase 148U/L (39-308) Myoglobin 209ng/mL (16-96) Total Protein 6.7g/dL (6.4-8.2) Albumin 3.2g/dL (3.4-5.0) Albumin/Globulin Ratio 0.9 (1.0-1.7) Thyroid Stimulating Hormone (TSH) 0.746uIU/mL (0.358-3.74) Test 10/08/16 20:48 Glucose (Fingerstick) 205mg/dL (70-99) Laboratory Tests Test 10/08/16 03:00 10/08/16 04:05 10/08/16 20:48 White Blood Count 7.0x10^3/uL (4.0-11.0) Red Blood Count 3.65x10^6/uL (4.30-5.70) Hemoglobin 12.1g/dL (13.0-17.5) Hematocrit 36.8% (39.0-53.0) Mean Corpuscular Volume 101fL (79-100) Mean Corpuscular Hemoglobin 33pg (25-35) Mean Corpuscular Hemoglobin Concent 33g/dL (31-37) Red Cell Distribution Width 14.2% (11.5-14.5) Platelet Count 100x10^3/uL (140-400) Neutrophils (%) (Auto) 60% (31-73) Lymphocytes (%) (Auto) 22% (24-48) Monocytes (%) (Auto) 15% (0-9) Eosinophils (%) (Auto) 3% (0-3) Basophils (%) (Auto) 0% (0-3) Neutrophils # (Auto) 4.2x10^3uL (1.8-7.7) Lymphocytes # (Auto) 1.5x10^3/uL (1.0-4.8) Monocytes # (Auto) 1.1x10^3/uL (0.0-1.1) Eosinophils # (Auto) 0.2x10^3/uL (0.0-0.7) Basophils # (Auto) 0.0x10^3/uL (0.0-0.2) Hemoglobin A1c 7.8% (4.8-5.6) Sodium Level 142mmol/L (136-145) Potassium Level 5.7mmol/L (3.5-5.1) Chloride Level 106mmol/L (98-107) Carbon Dioxide Level 30mmol/L (21-32) Anion Gap 6 (6-14) Blood Urea Nitrogen 61mg/dL (8-26) Creatinine 2.6mg/dL (0.7-1.3) Estimated GFR (Cockcroft-Gault) 28.5 BUN/Creatinine Ratio 23 (6-20) Glucose Level 218mg/dL (70-99) Calcium Level 8.3mg/dL (8.5-10.1) Magnesium Level 2.1mg/dL (1.8-2.4) Total Bilirubin 0.3mg/dL (0.2-1.0) Aspartate Amino Transf (AST/SGOT) 18U/L (15-37) Alanine Aminotransferase (ALT/SGPT) 30U/L (16-63) Alkaline Phosphatase 48U/L (46-116) Creatine Kinase 148U/L (39-308) Myoglobin 209ng/mL (16-96) Total Protein 6.7g/dL (6.4-8.2) Albumin 3.2g/dL (3.4-5.0) Albumin/Globulin Ratio 0.9 (1.0-1.7) Thyroid Stimulating Hormone (TSH) 0.746uIU/mL (0.358-3.74) Glucose (Fingerstick) 205mg/dL (70-99) Assessment/Plan Assessment/Plan RENAL CONSULT / MENA Dictated. ARF/ATN CKD IVHTN CHF DM II Dehydrated. Gentle IVF Labs I/Os Thank you. ABIEL SAN MD Oct 08, 2016 23:19
[2016-10-08 23:21] VITALS: BP 120/38
[2016-10-09 02:55] VITALS: BP 95/65
[2016-10-09] MEDS: SODIUM BICARBONATE VIAL 50 MEQ in IV 1/2 NORMAL SALINE 1,000 ML IV SCH ×2 (03:25→08:46)
[2016-10-09 05:11] LABS: BASO % 0 % (0-3); EOS % 4 % (0-3); HEMATOCRIT 38.1 % (39.0-53.0); HEMOGLOBIN 12.2 g/dL (13.0-17.5); LYMPH # 1.7 x10^3/uL (1.0-4.8); LYMPH % 25 % (24-48); MEAN CORPUSCULAR HEMOGLOBIN 33 pg (25-35); MEAN CORPUSCULAR HGB CONC 32 g/dL (31-37); MEAN CORPUSCULAR VOLUME 102 fL (79-100); MONO % 15 % (0-9); NEUT % 56 % (31-73); PLATELET COUNT 93 x10^3/uL (140-400); RED BLOOD COUNT 3.73 x10^6/uL (4.30-5.70); RED CELL DISTRIBUTION WIDTH 13.8 % (11.5-14.5)
[2016-10-09 05:31] LABS: CALCIUM 8.4 mg/dL (8.5-10.1); CREATININE 2.1 mg/dL (0.7-1.3); GFR 36.5; POTASSIUM 4.6 mmol/L (3.5-5.1)
[2016-10-09] MEDS: PANTOPRAZOLE 40 MG TABLET.DR. PO SCH (06:10)
[2016-10-09] MEDS: IPRATRPIUM/ALBUTEROL 0.5/2.5MG 3 ML NEBU. NEB SCH ×3 (07:17→15:01)
[2016-10-09 07:40] VITALS: BP 118/54
[2016-10-09] MEDS: INSULIN ASPART 300 UNITS/3 ML INSULN.PEN SQ SCH ×4 (08:00→12:59)
--- NOTE | 2016-10-09 08:12 | RAD ---
Renal ultrasound, 10/08/2016: History: Chronic kidney disease The right kidney measures 10.4 cm in length the left kidney measures 11.7 cm. There is no evidence of hydronephrosis. There is a small echogenic focus in the upper pole of the left kidney. This suggests a nonobstructing calculus versus a vascular calcification. The renal parenchymal echogenicity is otherwise within normal limits. Limited views of urinary bladder demonstrate a post voiding volume of 450 cc. IMPRESSION: 1. No evidence of renal obstruction. 2. Large volume of post voiding residual urine in the bladder.
[2016-10-09] MEDS: FINASTERIDE 5 MG TABLET. PO SCH (08:30)
[2016-10-09] MEDS: GABAPENTIN 300 MG CAPSULE. PO SCH ×2 (08:30→15:42)
[2016-10-09] MEDS: amLODIPine BESYLATE 10 MG TABLET PO SCH (08:31)
[2016-10-09] MEDS: FUROSEMIDE 80 MG TABLET. PO SCH (08:31)
[2016-10-09] MEDS: METOPROLOL TART IMMED RELEASE 50 MG TABLET. PO SCH (08:32)
[2016-10-09] MEDS: TAMSULOSIN 0.4 MG CAP.ER.24H. PO SCH (08:33)
[2016-10-09] MEDS: ASPIRIN ENTERIC COATED 81 MG TABLET.DR. PO SCH (08:33)
[2016-10-09] MEDS: LINAGLIPTIN 5 MG TABLET PO SCH (08:33)
[2016-10-09] MEDS: DORZOLAMIDE 2% OPHTH SOLUTION 10ML BOTTLE. OU SCH (08:33)
[2016-10-09] MEDS: EZETIMIBE 10 MG TABLET. PO SCH (08:34)
--- NOTE | 2016-10-09 08:59 | PDOC ---
PROGRESS NOTES Subjective Subjective Pt. feeling well Objective Objective Vital Signs Date Time Temp Pulse Resp B/P Pulse Ox O2 Delivery O2 Flow Rate FiO2 10/09/16 08:32 73 118/54 10/09/16 08:00 Room Air 10/09/16 07:40 98.7 20 94 98.7 Intake and Output 10/09/16 07:00 Intake Total 1000 ml Output Total 1500 ml Balance -500 ml Intake Oral 1000 ml Output Urine Total 1500 ml # Bowel Movements 2 Physical Exam Physical Exam Cr. down to 2.1 renal sono-no hydro residual 450 cc at time of sono but bladder scanner PVR after void was 150 cc Plan Plan of Care check PVR today keep on flomax and finasteride f/u with regular urologist Dr. Garrett Nobles next week Problems Medical Problems: (1) Hyperkalemia Status: Acute (2) Weakness Status: Acute Comment Review of Relevant I have reviewed the following items anthony (where applicable) has been applied. Labs Laboratory Tests Test 10/07/16 11:11 10/07/16 12:06 10/07/16 12:14 10/07/16 15:55 Urine Collection Type U cath Urine Color Yellow Urine Clarity Clear Urine pH 6.0 Urine Specific [place] 1.015 Urine Protein Negativemg/dL (NEG-TRACE) Urine Glucose (UA) Negativemg/dL (NEG) Urine Ketones (Stick) Negativemg/dL (NEG) Urine Blood Moderate (NEG) Urine Nitrite Negative (NEG) Urine Bilirubin Negative (NEG) Urine Urobilinogen Dipstick 0.2mg/dL (0.2 mg/dL) Urine Leukocyte Esterase Negative (NEG) Urine RBC 20-40/HPF (0-2) Urine WBC 0/HPF (0-4) Urine Squamous Epithelial Cells /LPF Urine Bacteria 0/HPF (0-FEW) Urine Hyaline Casts Moderate/HPF Urine Mucus Slight/LPF White Blood Count 7.0x10^3/uL (4.0-11.0) Red Blood Count 3.94x10^6/uL (4.30-5.70) Hemoglobin 13.0g/dL (13.0-17.5) Hematocrit 40.7% (39.0-53.0) Mean Corpuscular Volume 104fL (79-100) Mean Corpuscular Hemoglobin 33pg (25-35) Mean Corpuscular Hemoglobin Concent 32g/dL (31-37) Red Cell Distribution Width 13.9% (11.5-14.5) Platelet Count 107x10^3/uL (140-400) Neutrophils (%) (Auto) 55% (31-73) Lymphocytes (%) (Auto) 24% (24-48) Monocytes (%) (Auto) 17% (0-9) Eosinophils (%) (Auto) 4% (0-3) Basophils (%) (Auto) 0% (0-3) Neutrophils # (Auto) 3.9x10^3uL (1.8-7.7) Lymphocytes # (Auto) 1.7x10^3/uL (1.0-4.8) Monocytes # (Auto) 1.2x10^3/uL (0.0-1.1) Eosinophils # (Auto) 0.3x10^3/uL (0.0-0.7) Basophils # (Auto) 0.0x10^3/uL (0.0-0.2) Sodium Level 138mmol/L (136-145) Potassium Level 6.7mmol/L (3.5-5.1) 6.3mmol/L (3.5-5.1) Chloride Level 104mmol/L (98-107) Carbon Dioxide Level 28mmol/L (21-32) Anion Gap 6 (6-14) Blood Urea Nitrogen 70mg/dL (8-26) Creatinine 2.8mg/dL (0.7-1.3) Estimated GFR (Cockcroft-Gault) 26.2 Glucose Level 191mg/dL (70-99) Calcium Level 9.0mg/dL (8.5-10.1) Troponin I Quantitative 0.024ng/mL (0.000-0.055) FM-Nce-M-Type Natriuretic Peptide 1995pg/mL (0-449) Glucose (Fingerstick) 191mg/dL (70-99) Test 10/07/16 16:56 10/07/16 20:27 10/08/16 03:00 10/08/16 04:05 Glucose (Fingerstick) 194mg/dL (70-99) 251mg/dL (70-99) White Blood Count 7.0x10^3/uL (4.0-11.0) Red Blood Count 3.65x10^6/uL (4.30-5.70) Hemoglobin 12.1g/dL (13.0-17.5) Hematocrit 36.8% (39.0-53.0) Mean Corpuscular Volume 101fL (79-100) Mean Corpuscular Hemoglobin 33pg (25-35) Mean Corpuscular Hemoglobin Concent 33g/dL (31-37) Red Cell Distribution Width 14.2% (11.5-14.5) Platelet Count 100x10^3/uL (140-400) Neutrophils (%) (Auto) 60% (31-73) Lymphocytes (%) (Auto) 22% (24-48) Monocytes (%) (Auto) 15% (0-9) Eosinophils (%) (Auto) 3% (0-3) Basophils (%) (Auto) 0% (0-3) Neutrophils # (Auto) 4.2x10^3uL (1.8-7.7) Lymphocytes # (Auto) 1.5x10^3/uL (1.0-4.8) Monocytes # (Auto) 1.1x10^3/uL (0.0-1.1) Eosinophils # (Auto) 0.2x10^3/uL (0.0-0.7) Basophils # (Auto) 0.0x10^3/uL (0.0-0.2) Hemoglobin A1c 7.8% (4.8-5.6) Sodium Level 142mmol/L (136-145) Potassium Level 5.7mmol/L (3.5-5.1) Chloride Level 106mmol/L (98-107) Carbon Dioxide Level 30mmol/L (21-32) Anion Gap 6 (6-14) Blood Urea Nitrogen 61mg/dL (8-26) Creatinine 2.6mg/dL (0.7-1.3) Estimated GFR (Cockcroft-Gault) 28.5 BUN/Creatinine Ratio 23 (6-20) Glucose Level 218mg/dL (70-99) Calcium Level 8.3mg/dL (8.5-10.1) Magnesium Level 2.1mg/dL (1.8-2.4) Total Bilirubin 0.3mg/dL (0.2-1.0) Aspartate Amino Transf (AST/SGOT) 18U/L (15-37) Alanine Aminotransferase (ALT/SGPT) 30U/L (16-63) Alkaline Phosphatase 48U/L (46-116) Creatine Kinase 148U/L (39-308) Myoglobin 209ng/mL (16-96) Total Protein 6.7g/dL (6.4-8.2) Albumin 3.2g/dL (3.4-5.0) Albumin/Globulin Ratio 0.9 (1.0-1.7) Thyroid Stimulating Hormone (TSH) 0.746uIU/mL (0.358-3.74) Test 10/08/16 07:46 10/08/16 11:44 10/08/16 16:57 10/08/16 20:48 Glucose (Fingerstick) 202mg/dL (70-99) 217mg/dL (70-99) 155mg/dL (70-99) 205mg/dL (70-99) Test 10/09/16 04:45 White Blood Count 7.0x10^3/uL (4.0-11.0) Red Blood Count 3.73x10^6/uL (4.30-5.70) Hemoglobin 12.2g/dL (13.0-17.5) Hematocrit 38.1% (39.0-53.0) Mean Corpuscular Volume 102fL (79-100) Mean Corpuscular Hemoglobin 33pg (25-35) Mean Corpuscular Hemoglobin Concent 32g/dL (31-37) Red Cell Distribution Width 13.8% (11.5-14.5) Platelet Count 93x10^3/uL (140-400) Neutrophils (%) (Auto) 56% (31-73) Lymphocytes (%) (Auto) 25% (24-48) Monocytes (%) (Auto) 15% (0-9) Eosinophils (%) (Auto) 4% (0-3) Basophils (%) (Auto) 0% (0-3) Neutrophils # (Auto) 3.9x10^3uL (1.8-7.7) Lymphocytes # (Auto) 1.7x10^3/uL (1.0-4.8) Monocytes # (Auto) 1.0x10^3/uL (0.0-1.1) Eosinophils # (Auto) 0.3x10^3/uL (0.0-0.7) Basophils # (Auto) 0.0x10^3/uL (0.0-0.2) Sodium Level 142mmol/L (136-145) Potassium Level 4.6mmol/L (3.5-5.1) Chloride Level 104mmol/L (98-107) Carbon Dioxide Level 31mmol/L (21-32) Anion Gap 7 (6-14) Blood Urea Nitrogen 47mg/dL (8-26) Creatinine 2.1mg/dL (0.7-1.3) Estimated GFR (Cockcroft-Gault) 36.5 Glucose Level 187mg/dL (70-99) Calcium Level 8.4mg/dL (8.5-10.1) Laboratory Tests Test 10/08/16 11:44 10/08/16 16:57 10/08/16 20:48 10/09/16 04:45 Glucose (Fingerstick) 217mg/dL (70-99) 155mg/dL (70-99) 205mg/dL (70-99) White Blood Count 7.0x10^3/uL (4.0-11.0) Red Blood Count 3.73x10^6/uL (4.30-5.70) Hemoglobin 12.2g/dL (13.0-17.5) Hematocrit 38.1% (39.0-53.0) Mean Corpuscular Volume 102fL (79-100) Mean Corpuscular Hemoglobin 33pg (25-35) Mean Corpuscular Hemoglobin Concent 32g/dL (31-37) Red Cell Distribution Width 13.8% (11.5-14.5) Platelet Count 93x10^3/uL (140-400) Neutrophils (%) (Auto) 56% (31-73) Lymphocytes (%) (Auto) 25% (24-48) Monocytes (%) (Auto) 15% (0-9) Eosinophils (%) (Auto) 4% (0-3) Basophils (%) (Auto) 0% (0-3) Neutrophils # (Auto) 3.9x10^3uL (1.8-7.7) Lymphocytes # (Auto) 1.7x10^3/uL (1.0-4.8) Monocytes # (Auto) 1.0x10^3/uL (0.0-1.1) Eosinophils # (Auto) 0.3x10^3/uL (0.0-0.7) Basophils # (Auto) 0.0x10^3/uL (0.0-0.2) Sodium Level 142mmol/L (136-145) Potassium Level 4.6mmol/L (3.5-5.1) Chloride Level 104mmol/L (98-107) Carbon Dioxide Level 31mmol/L (21-32) Anion Gap 7 (6-14) Blood Urea Nitrogen 47mg/dL (8-26) Creatinine 2.1mg/dL (0.7-1.3) Estimated GFR (Cockcroft-Gault) 36.5 Glucose Level 187mg/dL (70-99) Calcium Level 8.4mg/dL (8.5-10.1) Medications Current Medications Sodium Bicarbonate 50 meq 1X ONCE IV Last administered on 10/07/16 13:06; Start 10/07/16 at 12:45; Stop 10/07/16 at 12:46; Status DC Dextrose (Dextrose 50%-Water Syringe) 25 gm 1X ONCE IV Last administered on 13:06; Start 10/07/16 at 12:45; Stop 10/07/16 at 12:46; Status DC Insulin Human Regular (Novolin R Vial) 10 unit 1X ONCE IV Last administered on 10/07/16 13:08; Start 10/07/16 at 12:45; Stop 10/07/16 at 12:46; Status DC Ondansetron HCl 4 mg 4 mg PRN Q8HRS PRN IV NAUSEA/VOMITING; Start 10/07/16 at 12:45; Stop 10/07/16 at 13:59; Status DC Sodium Chloride (Iv Sodium Chloride 0.9% 1000ml Bag) 1,000 ml @ 75 mls/hr [id number] IV ; Start 10/07/16 at 12:39; Stop 10/07/16 at 14:06; Status DC Albuterol/ Ipratropium (Duoneb) 3 ml 1X ONCE NEB Last administered on 12:55; Start 10/07/16 at 13:00; Stop 10/07/16 at 13:01; Status DC Ondansetron HCl (Zofran) 4 mg PRN Q6HRS PRN IV NAUSEA/VOMITING; Start 10/07/16 at 13:57 Insulin Aspart (Novolog) 0-9 UNITS TIDWMEALS SQ Last administered on 10/08/16 09:12; Start 10/07/16 at 17:00 Dextrose (Dextrose 50%-Water Syringe) 12.5 gm PRN Q15MIN PRN IV SEE COMMENTS; Start 10/07/16 at 14:00 Albuterol/ Ipratropium (Duoneb) 3 ml RTQID NEB Last administered on 10/09/16 07:17; Start 10/07/16 at 16:00 Amlodipine Besylate (Norvasc) 10 mg DAILY PO Last administered on 10/09/16 08: 31; Start 10/07/16 at 15:00 Aspirin (Ecotrin) 81 mg DAILY PO Last administered on 10/09/16 08:33; Start at 15:00 Atorvastatin Calcium (Lipitor) 20 mg HS PO Last administered on 10/08/16 21:36 ; Start 10/07/16 at 21:00 EZETIMIBE (Zetia) 10 mg DAILY PO Last administered on 10/09/16 08:34; Start at 13:00 Finasteride (Proscar) 5 mg DAILY PO Last administered on 10/09/16 08:30; Start 10/07/16 at 13:00 Furosemide (Lasix) 40 mg HS PO Last administered on 10/08/16 21:35; Start at 21:00 Furosemide (Lasix) 80 mg DAILY PO Last administered on 10/09/16 08:31; Start 10/08/16 at 09:00 Gabapentin (Neurontin) 100 mg TID PO Last administered on 10/08/16 08:50; Start 10/07/16 at 15:00; Stop 10/08/16 at 11:56; Status DC Acetaminophen/ Hydrocodone Bitart (Lortab 5/325) 1 tab PRN Q6HRS PRN PO PAIN; Start 10/07/16 at 14:15 Niacin (Slo-Niacin) 1,000 mg HS PO Last administered on 10/08/16 21:36; Start 10/07/16 at 21:00 Pantoprazole Sodium (Protonix) 40 mg DAILYAC PO Last administered on 10/09/16 06:10; Start 10/07/16 at 15:00 Primidone (Mysoline) 200 mg HS PO Last administered on 10/08/16 21:37; Start 10/07/16 at 21:00 Tamsulosin HCl (Flomax) 0.4 mg HS PO Last administered on 10/07/16 20:25; Start 10/07/16 at 21:00; Stop 10/08/16 at 11:45; Status DC Dorzolamide HCl (Trusopt) 1 drop BID OU Last administered on 10/09/16 08:33; Start 10/07/16 at 21:00 Insulin Detemir (Levemir) 35 units QHS SQ Last administered on 10/07/16 20:32 ; Start 10/07/16 at 21:00; Stop 10/08/16 at 11:56; Status DC Insulin Aspart (Novolog) 20 units TIDWMEALS SQ Last administered on 10/08/16 09:11; Start 10/07/16 at 17:00; Stop 10/08/16 at 11:56; Status DC Non-Formulary Medication 2 inh QID IH ; Start 10/07/16 at 17:00; Status UNV Metoprolol Tartrate (Lopressor) 100 mg BID PO Last administered on 10/09/16 08 :32; Start 10/07/16 at 21:00 Linagliptin (Tradjenta) 5 mg DAILY PO Last administered on 10/09/16 08:33; Start 10/07/16 at 15:00 Latanoprost 1 drop 1 drop QHS OU Last administered on 10/08/16 21:34; Start at 21:00 Sodium Bicarbonate/ Sodium Chloride (Iv Sodium Chloride 0.45%) 1,050 ml @ 75 mls/hr Q14H IV Last administered on 10/09/16 03:25; Start 10/07/16 at 15:00 Sodium Polystyrene Sulfonate (Kayexalate) 30 gm 1X ONCE PO Last administered on 10/07/16 14:49; Start 10/07/16 at 14:45; Stop 10/07/16 at 14:46; Status DC Sodium Bicarbonate 50 meq 1X ONCE IV ; Start 10/07/16 at 15:30; Stop 10/07/16 at 15:31; Status DC Insulin Human Regular (Novolin R Vial) 10 unit 1X ONCE IV ; Start 10/07/16 at 15:30; Stop 10/07/16 at 15:31; Status DC Dextrose (Dextrose 50%-Water Syringe) 10 gm 1X ONCE IV ; Start 10/07/16 at 15: 30; Stop 10/07/16 at 15:31; Status DC Sodium Polystyrene Sulfonate (Kayexalate) 30 gm 1X ONCE PO ; Start 10/07/16 at 15:45; Stop 10/07/16 at 15:46; Status DC Furosemide (Lasix) 40 mg 1X ONCE IVP ; Start 10/07/16 at 15:30; Stop 10/07/16 at 15:31; Status DC Sulfur Hexafluoride Microspheres (Lumason) 25 mg STK-MED ONCE IVP ; Start at 10:55; Stop 10/08/16 at 10:56; Status DC Tamsulosin HCl (Flomax) 0.4 mg BID PO Last administered on 10/09/16 08:33; Start 10/08/16 at 12:00 Gabapentin (Neurontin) 300 mg TID PO Last administered on 10/09/16 08:30; Start 10/08/16 at 14:00 Insulin Aspart (Novolog) 35 units TIDWMEALS SQ Last administered on 10/09/16 08:46; Start 10/08/16 at 12:00 Insulin Detemir (Levemir) 75 units QHS SQ Last administered on 10/08/16 21:44 ; Start 10/08/16 at 21:00 Sulfur Hexafluoride Microspheres (Lumason) 25 mg 1X ONCE IVP Last administered on 10/08/16 12:01; Start 10/08/16 at 12:00; Stop 10/08/16 at 12:01 ; Status DC Sodium Polystyrene Sulfonate (Kayexalate) 15 gm 1X ONCE PO Last administered on 10/08/16 13:35; Start 10/08/16 at 12:15; Stop 10/08/16 at 12:16; Status DC Active Scripts Active [place] 5-325 Tablet (Acetaminophen/Hydrocodone Bitart) 1 Each Tablet 1 Tab PO PRN Q6HRS PRN Amlodipine Besylate 10 Mg Tablet 10 Mg PO DAILY Reported Furosemide 40 Mg Tablet 40 Mg PO HS Furosemide 80 Mg Tablet 80 Mg PO DAILY Meloxicam 15 Mg Tablet 15 Mg PO DAILY Combivent Respimat Inhal (Ipratropium/Albuterol Sulfate) 4 Gm Aer.w.adap 2 Inh IH QID Gabapentin 100 Mg Capsule 100 Mg PO TID Januvia (Sitagliptin Phosphate) 50 Mg Tablet 25 Mg PO DAILY Metoprolol Tartrate 100 Mg Tablet 1 Tab PO BID Niaspan (Niacin) 500 Mg Tab.er.24h 1,000 Mg PO HS Travatan Z (Travoprost) 5 Ml Drops 1 Drop EACHEYE QHS Humalog (Insulin Lispro) 100 Unit/1 Ml Insuln.pen 20 Unit SQ TIDAC Lantus (Insulin Glargine,Hum.rec.anlog) 100 Unit/1 Ml Vial 35 Unit SQ HS Primidone 50 Mg Tablet 200 Mg PO HS Pantoprazole Sodium 40 Mg Tablet.dr 1 Tab PO DAILY Lisinopril 20 Mg Tablet 1 Tab PO DAILY Finasteride 5 Mg Tablet 1 Tab PO DAILY Lipitor (Atorvastatin Calcium) 20 Mg Tablet 20 Mg PO HS Azopt (Brinzolamide) 10 Ml Drops.susp 10 Ml OP BID PRN Flomax (Tamsulosin Hcl) 0.4 Mg Cap.er.24h 0.4 Mg PO HS Zetia (Ezetimibe) 10 Mg Tablet 10 Mg PO DAILY Ecotrin (Aspirin) 81 Mg Tablet.dr 81 Mg PO Vitals/I & O Vital Sign - Last 24 Hours 10/08/16 10/08/16 10/08/16 10/08/16 11:01 11:28 15:12 15:29 Temp 97.4 97.9 97.4 97.9 Pulse 74 71 Resp 20 17 B/P 122/59 125/49 Pulse Ox 94 95 O2 Delivery Room Air Room Air Room Air Room Air 10/08/16 10/08/16 10/08/16 10/08/16 19:30 19:36 20:05 21:38 Temp 98.2 98.2 Pulse 71 71 Resp 20 B/P 112/43 112/43 Pulse Ox 92 98 O2 Delivery Room Air Room Air Room Air 10/08/16 10/09/16 10/09/16 10/09/16 23:21 02:55 07:17 07:40 Temp 98.5 97.9 98.7 98.5 97.9 98.7 Pulse 69 71 71 Resp 18 18 20 B/P 120/38 95/65 118/54 Pulse Ox 96 92 94 94 O2 Delivery Room Air Room Air Room Air Room Air 10/09/16 10/09/16 10/09/16 08:00 08:31 08:32 Pulse 80 73 B/P 118/54 118/54 O2 Delivery Room Air Intake and Output 10/08/16 10/08/16 10/09/16 15:00 23:00 07:00 Intake Total 1000 ml Output Total 450 ml 1050 ml Balance -450 ml -50 ml PEDRO BARRON MD Oct 09, 2016 08:59
--- NOTE | 2016-10-09 09:26 | CONS ---
DATE OF CONSULTATION: 10/08/2016 LOCATION: The patient is in room 204. HISTORY OF PRESENT ILLNESS: The patient is a very pleasant 86-year-old -[place] male with history of chronic kidney disease, also with history of BPH. He is a regular patient of Dr. Garrett Nobles at [facility]. Patient states he last saw Dr. Nobles about a week ago. The patient has also had recent cystoscopy by Dr. Nobles. Patient normally is on Flomax twice a day by Dr. Nobles. Currently is only on once a day here in the hospital. The patient is a regular patient also of Nephrology, runs a creatinine in the 2 range currently, patient's creatinine is 2.6. The patient had imaging last year, which showed no hydronephrosis. The patient had a postvoid residual checked here in the hospital, which was 150 mL. The patient reports no real problems urinating currently. PHYSICAL EXAMINATION: GENITOURINARY: Testes are descended bilaterally. Phallus is uncircumcised. RECTAL: Good sphincter tone. Prostate smooth without nodules, overall size 30 grams. PAST MEDICAL HISTORY: Significant for coronary artery disease, congestive heart failure, hypertension, hyperlipidemia, COPD, chronic kidney disease and BPH. MEDICATIONS: Normally are Lasix, Meloxicam, Combivent, gabapentin, Januvia, metoprolol, Niaspan, Travatan, insulin, primidone, lisinopril, finasteride, Flomax twice a day, Lipitor, Zetia, Ecotrin. ALLERGIES: The patient has no known drug allergies. ASSESSMENT: Benign prostatic hyperplasia and chronic kidney disease. PLAN: Get a renal bladder ultrasound. The patient to recheck his creatinine tomorrow. Also would recommend continue with the Flomax and the finasteride, and have him follow up with his regular urologist, Dr. Nobles, next week. I certainly appreciate being allowed to participate in this patient's care. PEDRO BARRON MD DR: NICOLETTE/danielle JOB#: [id number] / [id number]
[2016-10-09] MEDS ORDERED: AMMONIUM LACTATE 12% TOPICAL LOTION 226GM BOTTLE. TP SCH (10:00)
[2016-10-09 10:30] VITALS: BP 121/60
--- NOTE | 2016-10-09 12:59 | PDOC ---
PROGRESS NOTES Subjective Subjective Pt. voiding without difficulty Objective Objective Vital Signs Date Time Temp Pulse Resp B/P Pulse Ox O2 Delivery O2 Flow Rate FiO2 10/09/16 11:39 91 Room Air 10/09/16 10:30 98.0 69 18 121/60 98.0 Intake and Output 10/09/16 07:00 Intake Total 1000 ml Output Total 1500 ml Balance -500 ml Intake Oral 1000 ml Output Urine Total 1500 ml # Bowel Movements 2 Physical Exam Physical Exam [id number] cc by bladder scan Plan Plan of Care continue flomax and proscar F/U with regular urologist Dr. Nobles next week Problems Medical Problems: (1) Hyperkalemia Status: Acute (2) Weakness Status: Acute Comment Review of Relevant I have reviewed the following items anthony (where applicable) has been applied. Labs Laboratory Tests Test 10/07/16 15:55 10/07/16 16:56 10/07/16 20:27 10/08/16 03:00 Potassium Level 6.3mmol/L (3.5-5.1) Glucose (Fingerstick) 194mg/dL (70-99) 251mg/dL (70-99) White Blood Count 7.0x10^3/uL (4.0-11.0) Red Blood Count 3.65x10^6/uL (4.30-5.70) Hemoglobin 12.1g/dL (13.0-17.5) Hematocrit 36.8% (39.0-53.0) Mean Corpuscular Volume 101fL (79-100) Mean Corpuscular Hemoglobin 33pg (25-35) Mean Corpuscular Hemoglobin Concent 33g/dL (31-37) Red Cell Distribution Width 14.2% (11.5-14.5) Platelet Count 100x10^3/uL (140-400) Neutrophils (%) (Auto) 60% (31-73) Lymphocytes (%) (Auto) 22% (24-48) Monocytes (%) (Auto) 15% (0-9) Eosinophils (%) (Auto) 3% (0-3) Basophils (%) (Auto) 0% (0-3) Neutrophils # (Auto) 4.2x10^3uL (1.8-7.7) Lymphocytes # (Auto) 1.5x10^3/uL (1.0-4.8) Monocytes # (Auto) 1.1x10^3/uL (0.0-1.1) Eosinophils # (Auto) 0.2x10^3/uL (0.0-0.7) Basophils # (Auto) 0.0x10^3/uL (0.0-0.2) Hemoglobin A1c 7.8% (4.8-5.6) Test 10/08/16 04:05 10/08/16 07:46 10/08/16 11:44 10/08/16 16:57 Sodium Level 142mmol/L (136-145) Potassium Level 5.7mmol/L (3.5-5.1) Chloride Level 106mmol/L (98-107) Carbon Dioxide Level 30mmol/L (21-32) Anion Gap 6 (6-14) Blood Urea Nitrogen 61mg/dL (8-26) Creatinine 2.6mg/dL (0.7-1.3) Estimated GFR (Cockcroft-Gault) 28.5 BUN/Creatinine Ratio 23 (6-20) Glucose Level 218mg/dL (70-99) Calcium Level 8.3mg/dL (8.5-10.1) Magnesium Level 2.1mg/dL (1.8-2.4) Total Bilirubin 0.3mg/dL (0.2-1.0) Aspartate Amino Transf (AST/SGOT) 18U/L (15-37) Alanine Aminotransferase (ALT/SGPT) 30U/L (16-63) Alkaline Phosphatase 48U/L (46-116) Creatine Kinase 148U/L (39-308) Myoglobin 209ng/mL (16-96) Total Protein 6.7g/dL (6.4-8.2) Albumin 3.2g/dL (3.4-5.0) Albumin/Globulin Ratio 0.9 (1.0-1.7) Thyroid Stimulating Hormone (TSH) 0.746uIU/mL (0.358-3.74) Glucose (Fingerstick) 202mg/dL (70-99) 217mg/dL (70-99) 155mg/dL (70-99) Test 10/08/16 20:48 10/09/16 04:45 10/09/16 11:32 Glucose (Fingerstick) 205mg/dL (70-99) 238mg/dL (70-99) White Blood Count 7.0x10^3/uL (4.0-11.0) Red Blood Count 3.73x10^6/uL (4.30-5.70) Hemoglobin 12.2g/dL (13.0-17.5) Hematocrit 38.1% (39.0-53.0) Mean Corpuscular Volume 102fL (79-100) Mean Corpuscular Hemoglobin 33pg (25-35) Mean Corpuscular Hemoglobin Concent 32g/dL (31-37) Red Cell Distribution Width 13.8% (11.5-14.5) Platelet Count 93x10^3/uL (140-400) Neutrophils (%) (Auto) 56% (31-73) Lymphocytes (%) (Auto) 25% (24-48) Monocytes (%) (Auto) 15% (0-9) Eosinophils (%) (Auto) 4% (0-3) Basophils (%) (Auto) 0% (0-3) Neutrophils # (Auto) 3.9x10^3uL (1.8-7.7) Lymphocytes # (Auto) 1.7x10^3/uL (1.0-4.8) Monocytes # (Auto) 1.0x10^3/uL (0.0-1.1) Eosinophils # (Auto) 0.3x10^3/uL (0.0-0.7) Basophils # (Auto) 0.0x10^3/uL (0.0-0.2) Sodium Level 142mmol/L (136-145) Potassium Level 4.6mmol/L (3.5-5.1) Chloride Level 104mmol/L (98-107) Carbon Dioxide Level 31mmol/L (21-32) Anion Gap 7 (6-14) Blood Urea Nitrogen 47mg/dL (8-26) Creatinine 2.1mg/dL (0.7-1.3) Estimated GFR (Cockcroft-Gault) 36.5 Glucose Level 187mg/dL (70-99) Calcium Level 8.4mg/dL (8.5-10.1) Laboratory Tests Test 10/08/16 16:57 10/08/16 20:48 10/09/16 04:45 10/09/16 11:32 Glucose (Fingerstick) 155mg/dL (70-99) 205mg/dL (70-99) 238mg/dL (70-99) White Blood Count 7.0x10^3/uL (4.0-11.0) Red Blood Count 3.73x10^6/uL (4.30-5.70) Hemoglobin 12.2g/dL (13.0-17.5) Hematocrit 38.1% (39.0-53.0) Mean Corpuscular Volume 102fL (79-100) Mean Corpuscular Hemoglobin 33pg (25-35) Mean Corpuscular Hemoglobin Concent 32g/dL (31-37) Red Cell Distribution Width 13.8% (11.5-14.5) Platelet Count 93x10^3/uL (140-400) Neutrophils (%) (Auto) 56% (31-73) Lymphocytes (%) (Auto) 25% (24-48) Monocytes (%) (Auto) 15% (0-9) Eosinophils (%) (Auto) 4% (0-3) Basophils (%) (Auto) 0% (0-3) Neutrophils # (Auto) 3.9x10^3uL (1.8-7.7) Lymphocytes # (Auto) 1.7x10^3/uL (1.0-4.8) Monocytes # (Auto) 1.0x10^3/uL (0.0-1.1) Eosinophils # (Auto) 0.3x10^3/uL (0.0-0.7) Basophils # (Auto) 0.0x10^3/uL (0.0-0.2) Sodium Level 142mmol/L (136-145) Potassium Level 4.6mmol/L (3.5-5.1) Chloride Level 104mmol/L (98-107) Carbon Dioxide Level 31mmol/L (21-32) Anion Gap 7 (6-14) Blood Urea Nitrogen 47mg/dL (8-26) Creatinine 2.1mg/dL (0.7-1.3) Estimated GFR (Cockcroft-Gault) 36.5 Glucose Level 187mg/dL (70-99) Calcium Level 8.4mg/dL (8.5-10.1) Medications Current Medications Sodium Bicarbonate 50 meq 1X ONCE IV Last administered on 10/07/16 13:06; Start 10/07/16 at 12:45; Stop 10/07/16 at 12:46; Status DC Dextrose (Dextrose 50%-Water Syringe) 25 gm 1X ONCE IV Last administered on 13:06; Start 10/07/16 at 12:45; Stop 10/07/16 at 12:46; Status DC Insulin Human Regular (Novolin R Vial) 10 unit 1X ONCE IV Last administered on 10/07/16 13:08; Start 10/07/16 at 12:45; Stop 10/07/16 at 12:46; Status DC Ondansetron HCl 4 mg 4 mg PRN Q8HRS PRN IV NAUSEA/VOMITING; Start 10/07/16 at 12:45; Stop 10/07/16 at 13:59; Status DC Sodium Chloride (Iv Sodium Chloride 0.9% 1000ml Bag) 1,000 ml @ 75 mls/hr [id number] IV ; Start 10/07/16 at 12:39; Stop 10/07/16 at 14:06; Status DC Albuterol/ Ipratropium (Duoneb) 3 ml 1X ONCE NEB Last administered on 12:55; Start 10/07/16 at 13:00; Stop 10/07/16 at 13:01; Status DC Ondansetron HCl (Zofran) 4 mg PRN Q6HRS PRN IV NAUSEA/VOMITING; Start 10/07/16 at 13:57 Insulin Aspart (Novolog) 0-9 UNITS TIDWMEALS SQ Last administered on 10/08/16 09:12; Start 10/07/16 at 17:00 Dextrose (Dextrose 50%-Water Syringe) 12.5 gm PRN Q15MIN PRN IV SEE COMMENTS; Start 10/07/16 at 14:00 Albuterol/ Ipratropium (Duoneb) 3 ml RTQID NEB Last administered on 10/09/16 11:39; Start 10/07/16 at 16:00 Amlodipine Besylate (Norvasc) 10 mg DAILY PO Last administered on 10/09/16 08: 31; Start 10/07/16 at 15:00 Aspirin (Ecotrin) 81 mg DAILY PO Last administered on 10/09/16 08:33; Start at 15:00 Atorvastatin Calcium (Lipitor) 20 mg HS PO Last administered on 10/08/16 21:36 ; Start 10/07/16 at 21:00 EZETIMIBE (Zetia) 10 mg DAILY PO Last administered on 10/09/16 08:34; Start at 13:00 Finasteride (Proscar) 5 mg DAILY PO Last administered on 10/09/16 08:30; Start 10/07/16 at 13:00 Furosemide (Lasix) 40 mg HS PO Last administered on 10/08/16 21:35; Start at 21:00 Furosemide (Lasix) 80 mg DAILY PO Last administered on 10/09/16 08:31; Start 10/08/16 at 09:00 Gabapentin (Neurontin) 100 mg TID PO Last administered on 10/08/16 08:50; Start 10/07/16 at 15:00; Stop 10/08/16 at 11:56; Status DC Acetaminophen/ Hydrocodone Bitart (Lortab 5/325) 1 tab PRN Q6HRS PRN PO PAIN; Start 10/07/16 at 14:15 Niacin (Slo-Niacin) 1,000 mg HS PO Last administered on 10/08/16 21:36; Start 10/07/16 at 21:00 Pantoprazole Sodium (Protonix) 40 mg DAILYAC PO Last administered on 10/09/16 06:10; Start 10/07/16 at 15:00 Primidone (Mysoline) 200 mg HS PO Last administered on 10/08/16 21:37; Start 10/07/16 at 21:00 Tamsulosin HCl (Flomax) 0.4 mg HS PO Last administered on 10/07/16 20:25; Start 10/07/16 at 21:00; Stop 10/08/16 at 11:45; Status DC Dorzolamide HCl (Trusopt) 1 drop BID OU Last administered on 10/09/16 08:33; Start 10/07/16 at 21:00 Insulin Detemir (Levemir) 35 units QHS SQ Last administered on 10/07/16 20:32 ; Start 10/07/16 at 21:00; Stop 10/08/16 at 11:56; Status DC Insulin Aspart (Novolog) 20 units TIDWMEALS SQ Last administered on 10/08/16 09:11; Start 10/07/16 at 17:00; Stop 10/08/16 at 11:56; Status DC Non-Formulary Medication 2 inh QID IH ; Start 10/07/16 at 17:00; Status UNV Metoprolol Tartrate (Lopressor) 100 mg BID PO Last administered on 10/09/16 08 :32; Start 10/07/16 at 21:00 Linagliptin (Tradjenta) 5 mg DAILY PO Last administered on 10/09/16 08:33; Start 10/07/16 at 15:00 Latanoprost 1 drop 1 drop QHS OU Last administered on 10/08/16 21:34; Start at 21:00 Sodium Bicarbonate/ Sodium Chloride (Iv Sodium Chloride 0.45%) 1,050 ml @ 75 mls/hr Q14H IV Last administered on 10/09/16 03:25; Start 10/07/16 at 15:00 Sodium Polystyrene Sulfonate (Kayexalate) 30 gm 1X ONCE PO Last administered on 10/07/16 14:49; Start 10/07/16 at 14:45; Stop 10/07/16 at 14:46; Status DC Sodium Bicarbonate 50 meq 1X ONCE IV ; Start 10/07/16 at 15:30; Stop 10/07/16 at 15:31; Status DC Insulin Human Regular (Novolin R Vial) 10 unit 1X ONCE IV ; Start 10/07/16 at 15:30; Stop 10/07/16 at 15:31; Status DC Dextrose (Dextrose 50%-Water Syringe) 10 gm 1X ONCE IV ; Start 10/07/16 at 15: 30; Stop 10/07/16 at 15:31; Status DC Sodium Polystyrene Sulfonate (Kayexalate) 30 gm 1X ONCE PO ; Start 10/07/16 at 15:45; Stop 10/07/16 at 15:46; Status DC Furosemide (Lasix) 40 mg 1X ONCE IVP ; Start 10/07/16 at 15:30; Stop 10/07/16 at 15:31; Status DC Sulfur Hexafluoride Microspheres (Lumason) 25 mg STK-MED ONCE IVP ; Start at 10:55; Stop 10/08/16 at 10:56; Status DC Tamsulosin HCl (Flomax) 0.4 mg BID PO Last administered on 10/09/16 08:33; Start 10/08/16 at 12:00 Gabapentin (Neurontin) 300 mg TID PO Last administered on 10/09/16 08:30; Start 10/08/16 at 14:00 Insulin Aspart (Novolog) 35 units TIDWMEALS SQ Last administered on 10/09/16 08:46; Start 10/08/16 at 12:00 Insulin Detemir (Levemir) 75 units QHS SQ Last administered on 10/08/16 21:44 ; Start 10/08/16 at 21:00 Sulfur Hexafluoride Microspheres (Lumason) 25 mg 1X ONCE IVP Last administered on 10/08/16 12:01; Start 10/08/16 at 12:00; Stop 10/08/16 at 12:01 ; Status DC Sodium Polystyrene Sulfonate (Kayexalate) 15 gm 1X ONCE PO Last administered on 10/08/16 13:35; Start 10/08/16 at 12:15; Stop 10/08/16 at 12:16; Status DC Lactic Acid (Lac-Hydrin) 1 nik BID TP Last administered on 10/09/16 11:35; Start 10/09/16 at 10:00 Active Scripts Active [place] 5-325 Tablet (Acetaminophen/Hydrocodone Bitart) 1 Each Tablet 1 Tab PO PRN Q6HRS PRN Amlodipine Besylate 10 Mg Tablet 10 Mg PO DAILY Reported Furosemide 40 Mg Tablet 40 Mg PO HS Furosemide 80 Mg Tablet 80 Mg PO DAILY Meloxicam 15 Mg Tablet 15 Mg PO DAILY Combivent Respimat Inhal (Ipratropium/Albuterol Sulfate) 4 Gm Aer.w.adap 2 Inh IH QID Gabapentin 100 Mg Capsule 100 Mg PO TID Januvia (Sitagliptin Phosphate) 50 Mg Tablet 25 Mg PO DAILY Metoprolol Tartrate 100 Mg Tablet 1 Tab PO BID Niaspan (Niacin) 500 Mg Tab.er.24h 1,000 Mg PO HS Travatan Z (Travoprost) 5 Ml Drops 1 Drop EACHEYE QHS Humalog (Insulin Lispro) 100 Unit/1 Ml Insuln.pen 20 Unit SQ TIDAC Lantus (Insulin Glargine,Hum.rec.anlog) 100 Unit/1 Ml Vial 35 Unit SQ HS Primidone 50 Mg Tablet 200 Mg PO HS Pantoprazole Sodium 40 Mg Tablet.dr 1 Tab PO DAILY Lisinopril 20 Mg Tablet 1 Tab PO DAILY Finasteride 5 Mg Tablet 1 Tab PO DAILY Lipitor (Atorvastatin Calcium) 20 Mg Tablet 20 Mg PO HS Azopt (Brinzolamide) 10 Ml Drops.susp 10 Ml OP BID PRN Flomax (Tamsulosin Hcl) 0.4 Mg Cap.er.24h 0.4 Mg PO HS Zetia (Ezetimibe) 10 Mg Tablet 10 Mg PO DAILY Ecotrin (Aspirin) 81 Mg Tablet. 81 Mg PO Vitals/I & O Vital Sign - Last 24 Hours 10/08/16 10/08/16 10/08/16 10/08/16 15:12 15:29 19:30 19:36 Temp 97.9 98.2 97.9 98.2 Pulse 71 71 Resp 17 20 B/P 125/49 112/43 Pulse Ox 95 92 98 O2 Delivery Room Air Room Air Room Air Room Air 10/08/16 10/08/16 10/08/16 10/09/16 20:05 21:38 23:21 02:55 Temp 98.5 97.9 98.5 97.9 Pulse 71 69 71 Resp 18 18 B/P 112/43 120/38 95/65 Pulse Ox 96 92 O2 Delivery Room Air Room Air Room Air 10/09/16 10/09/16 10/09/16 10/09/16 07:17 07:40 08:00 08:00 Temp 98.7 98.7 Pulse 71 Resp 20 B/P 118/54 Pulse Ox 94 94 O2 Delivery Room Air Room Air Room Air Room Air 10/09/16 10/09/16 10/09/16 10/09/16 08:31 08:32 10:30 11:39 Temp 98.0 98.0 Pulse 80 73 69 Resp 18 B/P 118/54 118/54 121/60 Pulse Ox 94 91 O2 Delivery Room Air Room Air Intake and Output 10/08/16 10/08/16 10/09/16 15:00 23:00 07:00 Intake Total 1000 ml Output Total 450 ml 1050 ml Balance -450 ml -50 ml PEDRO BARRON MD Oct 09, 2016 12:59
--- NOTE | 2016-10-09 13:22 | PDOC ---
PROGRESS NOTES Chief Complaint Chief Complaint cc: generalized weakness, recent multiple falls CHF HTN CAD COPD GERD Chronic Kidney disease BPH Pacemaker DEYSI vs. Obesity hypoventilation syndrome History of Present Illness History of Present Illness Patient seen and evaluated this AM. Patient currently sitting upright in bed. Patient reports feeling better with his breathing improved, but continues to have generalized weakness. He states he will need assistance in attempting to see if he can stand and ambulate on his own. d/w nurse. Vitals Vitals Vital Signs Date Time Temp Pulse Resp B/P Pulse Ox O2 Delivery O2 Flow Rate FiO2 10/09/16 11:39 91 Room Air 10/09/16 10:30 98.0 69 18 121/60 98.0 Physical Exam General: Alert, Oriented X3, Cooperative, No acute distress Heart: Regular rate (SR/ST), Normal S1, Normal S2, Other (2-3/6 systolic murmur to LLS border) Lungs: Other (diminished breath sounds bilaterally. negative chest retractions or accessory muscle use. ) Abdomen: Soft, No tenderness Extremities: No cyanosis, Other (1-2+ bilateral LE pitting edema) Skin: No breakdown, No significant lesion Labs LABS Laboratory Tests Test 10/08/16 16:57 10/08/16 20:48 10/09/16 04:45 10/09/16 11:32 Glucose (Fingerstick) 155mg/dL (70-99) 205mg/dL (70-99) 238mg/dL (70-99) White Blood Count 7.0x10^3/uL (4.0-11.0) Red Blood Count 3.73x10^6/uL (4.30-5.70) Hemoglobin 12.2g/dL (13.0-17.5) Hematocrit 38.1% (39.0-53.0) Mean Corpuscular Volume 102fL (79-100) Mean Corpuscular Hemoglobin 33pg (25-35) Mean Corpuscular Hemoglobin Concent 32g/dL (31-37) Red Cell Distribution Width 13.8% (11.5-14.5) Platelet Count 93x10^3/uL (140-400) Neutrophils (%) (Auto) 56% (31-73) Lymphocytes (%) (Auto) 25% (24-48) Monocytes (%) (Auto) 15% (0-9) Eosinophils (%) (Auto) 4% (0-3) Basophils (%) (Auto) 0% (0-3) Neutrophils # (Auto) 3.9x10^3uL (1.8-7.7) Lymphocytes # (Auto) 1.7x10^3/uL (1.0-4.8) Monocytes # (Auto) 1.0x10^3/uL (0.0-1.1) Eosinophils # (Auto) 0.3x10^3/uL (0.0-0.7) Basophils # (Auto) 0.0x10^3/uL (0.0-0.2) Sodium Level 142mmol/L (136-145) Potassium Level 4.6mmol/L (3.5-5.1) Chloride Level 104mmol/L (98-107) Carbon Dioxide Level 31mmol/L (21-32) Anion Gap 7 (6-14) Blood Urea Nitrogen 47mg/dL (8-26) Creatinine 2.1mg/dL (0.7-1.3) Estimated GFR (Cockcroft-Gault) 36.5 Glucose Level 187mg/dL (70-99) Calcium Level 8.4mg/dL (8.5-10.1) Review of Systems Review of Systems (+) generalized weakness (+) venous stasis changes to LEs. Denies chest pain, sob at rest, abdominal pain, n/v/d, lightheadedness/dizziness , headaches, or fever/chills. Assessment and Plan Assessmemt and Plan Problems Medical Problems: (1) Hyperkalemia Status: Acute (2) Weakness Status: Acute Assessment 1.) generalized weakness, multifactorial - electrolytes changes, sedentary lifestyle/deconditioning, CKD, etc. 2.) prior multiple fall, multifactorial, but probable peripheral neuropathy with altered proprioception 2/2 diabetes. 3.) Diabetes Mellitus, on insulin 4.) hyperkalemia 5.) BRITTON/CKD, probable diabetic nephropathy. improving renal function 6.) diastolic heart failure 7.) COPD 8.) HTN 9.) CAD, previous PCI 10.) chronic venous stasis to LEs bilaterally 11.) probable sleep apnea vs. obesity hypoventilation, currently on CPAP 12.) hyperlipidemia 13.) pacemaker: unknown brand Plan: 1.) continue home medications as appropriate 2.) appreciate subspecialty input 3.) gentle hydration per nephrology 4.) monitor AM labs. 5.) continue PT/OT 6.) continue telemetry 7.) continue discharge planning to SNU. probable discharge when okay by subspecialties and physical therapy. 8.) DVT ppx: SQ heparin. 9.) emollient for LEs to help with skin changes. Problems: Comment Review of Relevant I have reviewed the following items anthony (where applicable) has been applied. Labs Laboratory Tests Test 10/07/16 15:55 10/07/16 16:56 10/07/16 20:27 10/08/16 03:00 Potassium Level 6.3mmol/L (3.5-5.1) Glucose (Fingerstick) 194mg/dL (70-99) 251mg/dL (70-99) White Blood Count 7.0x10^3/uL (4.0-11.0) Red Blood Count 3.65x10^6/uL (4.30-5.70) Hemoglobin 12.1g/dL (13.0-17.5) Hematocrit 36.8% (39.0-53.0) Mean Corpuscular Volume 101fL (79-100) Mean Corpuscular Hemoglobin 33pg (25-35) Mean Corpuscular Hemoglobin Concent 33g/dL (31-37) Red Cell Distribution Width 14.2% (11.5-14.5) Platelet Count 100x10^3/uL (140-400) Neutrophils (%) (Auto) 60% (31-73) Lymphocytes (%) (Auto) 22% (24-48) Monocytes (%) (Auto) 15% (0-9) Eosinophils (%) (Auto) 3% (0-3) Basophils (%) (Auto) 0% (0-3) Neutrophils # (Auto) 4.2x10^3uL (1.8-7.7) Lymphocytes # (Auto) 1.5x10^3/uL (1.0-4.8) Monocytes # (Auto) 1.1x10^3/uL (0.0-1.1) Eosinophils # (Auto) 0.2x10^3/uL (0.0-0.7) Basophils # (Auto) 0.0x10^3/uL (0.0-0.2) Hemoglobin A1c 7.8% (4.8-5.6) Test 10/08/16 04:05 10/08/16 07:46 10/08/16 11:44 10/08/16 16:57 Sodium Level 142mmol/L (136-145) Potassium Level 5.7mmol/L (3.5-5.1) Chloride Level 106mmol/L (98-107) Carbon Dioxide Level 30mmol/L (21-32) Anion Gap 6 (6-14) Blood Urea Nitrogen 61mg/dL (8-26) Creatinine 2.6mg/dL (0.7-1.3) Estimated GFR (Cockcroft-Gault) 28.5 BUN/Creatinine Ratio 23 (6-20) Glucose Level 218mg/dL (70-99) Calcium Level 8.3mg/dL (8.5-10.1) Magnesium Level 2.1mg/dL (1.8-2.4) Total Bilirubin 0.3mg/dL (0.2-1.0) Aspartate Amino Transf (AST/SGOT) 18U/L (15-37) Alanine Aminotransferase (ALT/SGPT) 30U/L (16-63) Alkaline Phosphatase 48U/L (46-116) Creatine Kinase 148U/L (39-308) Myoglobin 209ng/mL (16-96) Total Protein 6.7g/dL (6.4-8.2) Albumin 3.2g/dL (3.4-5.0) Albumin/Globulin Ratio 0.9 (1.0-1.7) Thyroid Stimulating Hormone (TSH) 0.746uIU/mL (0.358-3.74) Glucose (Fingerstick) 202mg/dL (70-99) 217mg/dL (70-99) 155mg/dL (70-99) Test 10/08/16 20:48 10/09/16 04:45 10/09/16 11:32 Glucose (Fingerstick) 205mg/dL (70-99) 238mg/dL (70-99) White Blood Count 7.0x10^3/uL (4.0-11.0) Red Blood Count 3.73x10^6/uL (4.30-5.70) Hemoglobin 12.2g/dL (13.0-17.5) Hematocrit 38.1% (39.0-53.0) Mean Corpuscular Volume 102fL (79-100) Mean Corpuscular Hemoglobin 33pg (25-35) Mean Corpuscular Hemoglobin Concent 32g/dL (31-37) Red Cell Distribution Width 13.8% (11.5-14.5) Platelet Count 93x10^3/uL (140-400) Neutrophils (%) (Auto) 56% (31-73) Lymphocytes (%) (Auto) 25% (24-48) Monocytes (%) (Auto) 15% (0-9) Eosinophils (%) (Auto) 4% (0-3) Basophils (%) (Auto) 0% (0-3) Neutrophils # (Auto) 3.9x10^3uL (1.8-7.7) Lymphocytes # (Auto) 1.7x10^3/uL (1.0-4.8) Monocytes # (Auto) 1.0x10^3/uL (0.0-1.1) Eosinophils # (Auto) 0.3x10^3/uL (0.0-0.7) Basophils # (Auto) 0.0x10^3/uL (0.0-0.2) Sodium Level 142mmol/L (136-145) Potassium Level 4.6mmol/L (3.5-5.1) Chloride Level 104mmol/L (98-107) Carbon Dioxide Level 31mmol/L (21-32) Anion Gap 7 (6-14) Blood Urea Nitrogen 47mg/dL (8-26) Creatinine 2.1mg/dL (0.7-1.3) Estimated GFR (Cockcroft-Gault) 36.5 Glucose Level 187mg/dL (70-99) Calcium Level 8.4mg/dL (8.5-10.1) Laboratory Tests Test 10/08/16 16:57 10/08/16 20:48 10/09/16 04:45 10/09/16 11:32 Glucose (Fingerstick) 155mg/dL (70-99) 205mg/dL (70-99) 238mg/dL (70-99) White Blood Count 7.0x10^3/uL (4.0-11.0) Red Blood Count 3.73x10^6/uL (4.30-5.70) Hemoglobin 12.2g/dL (13.0-17.5) Hematocrit 38.1% (39.0-53.0) Mean Corpuscular Volume 102fL (79-100) Mean Corpuscular Hemoglobin 33pg (25-35) Mean Corpuscular Hemoglobin Concent 32g/dL (31-37) Red Cell Distribution Width 13.8% (11.5-14.5) Platelet Count 93x10^3/uL (140-400) Neutrophils (%) (Auto) 56% (31-73) Lymphocytes (%) (Auto) 25% (24-48) Monocytes (%) (Auto) 15% (0-9) Eosinophils (%) (Auto) 4% (0-3) Basophils (%) (Auto) 0% (0-3) Neutrophils # (Auto) 3.9x10^3uL (1.8-7.7) Lymphocytes # (Auto) 1.7x10^3/uL (1.0-4.8) Monocytes # (Auto) 1.0x10^3/uL (0.0-1.1) Eosinophils # (Auto) 0.3x10^3/uL (0.0-0.7) Basophils # (Auto) 0.0x10^3/uL (0.0-0.2) Sodium Level 142mmol/L (136-145) Potassium Level 4.6mmol/L (3.5-5.1) Chloride Level 104mmol/L (98-107) Carbon Dioxide Level 31mmol/L (21-32) Anion Gap 7 (6-14) Blood Urea Nitrogen 47mg/dL (8-26) Creatinine 2.1mg/dL (0.7-1.3) Estimated GFR (Cockcroft-Gault) 36.5 Glucose Level 187mg/dL (70-99) Calcium Level 8.4mg/dL (8.5-10.1) Medications Current Medications Sodium Bicarbonate 50 meq 1X ONCE IV Last administered on 10/07/16t 13:06; Start 10/07/16 at 12:45; Stop 10/07/16 at 12:46; Status DC Dextrose (Dextrose 50%-Water Syringe) 25 gm 1X ONCE IV Last administered on 13:06; Start 10/07/16 at 12:45; Stop 10/07/16 at 12:46; Status DC Insulin Human Regular (Novolin R Vial) 10 unit 1X ONCE IV Last administered on 10/07/16 13:08; Start 10/07/16 at 12:45; Stop 10/07/16 at 12:46; Status DC Ondansetron HCl 4 mg 4 mg PRN Q8HRS PRN IV NAUSEA/VOMITING; Start 10/07/16 at 12:45; Stop 10/07/16 at 13:59; Status DC Sodium Chloride (Iv Sodium Chloride 0.9% 1000ml Bag) 1,000 ml @ 75 mls/hr [id number] IV ; Start 10/07/16 at 12:39; Stop 10/07/16 at 14:06; Status DC Albuterol/ Ipratropium (Duoneb) 3 ml 1X ONCE NEB Last administered on 12:55; Start 10/07/16 at 13:00; Stop 10/07/16 at 13:01; Status DC Ondansetron HCl (Zofran) 4 mg PRN Q6HRS PRN IV NAUSEA/VOMITING; Start 10/07/16 at 13:57 Insulin Aspart (Novolog) 0-9 UNITS TIDWMEALS SQ Last administered on 10/08/16 09:12; Start 10/07/16 at 17:00 Dextrose (Dextrose 50%-Water Syringe) 12.5 gm PRN Q15MIN PRN IV SEE COMMENTS; Start 10/07/16 at 14:00 Albuterol/ Ipratropium (Duoneb) 3 ml RTQID NEB Last administered on 10/09/16 11:39; Start 10/07/16 at 16:00 Amlodipine Besylate (Norvasc) 10 mg DAILY PO Last administered on 10/09/16 08: 31; Start 10/07/16 at 15:00 Aspirin (Ecotrin) 81 mg DAILY PO Last administered on 10/09/16 08:33; Start at 15:00 Atorvastatin Calcium (Lipitor) 20 mg HS PO Last administered on 10/08/16 21:36 ; Start 10/07/16 at 21:00 EZETIMIBE (Zetia) 10 mg DAILY PO Last administered on 10/09/16 08:34; Start at 13:00 Finasteride (Proscar) 5 mg DAILY PO Last administered on 10/09/16 08:30; Start 10/07/16 at 13:00 Furosemide (Lasix) 40 mg HS PO Last administered on 10/08/16 21:35; Start at 21:00 Furosemide (Lasix) 80 mg DAILY PO Last administered on 10/09/16 08:31; Start 10/08/16 at 09:00 Gabapentin (Neurontin) 100 mg TID PO Last administered on 10/08/16 08:50; Start 10/07/16 at 15:00; Stop 10/08/16 at 11:56; Status DC Acetaminophen/ Hydrocodone Bitart (Lortab 5/325) 1 tab PRN Q6HRS PRN PO PAIN; Start 10/07/16 at 14:15 Niacin (Slo-Niacin) 1,000 mg HS PO Last administered on 10/08/16 21:36; Start 10/07/16 at 21:00 Pantoprazole Sodium (Protonix) 40 mg DAILYAC PO Last administered on 10/09/16 06:10; Start 10/07/16 at 15:00 Primidone (Mysoline) 200 mg HS PO Last administered on 10/08/16 21:37; Start 10/07/16 at 21:00 Tamsulosin HCl (Flomax) 0.4 mg HS PO Last administered on 10/07/16 20:25; Start 10/07/16 at 21:00; Stop 10/08/16 at 11:45; Status DC Dorzolamide HCl (Trusopt) 1 drop BID OU Last administered on 10/09/16 08:33; Start 10/07/16 at 21:00 Insulin Detemir (Levemir) 35 units QHS SQ Last administered on 10/07/16 20:32 ; Start 10/07/16 at 21:00; Stop 10/08/16 at 11:56; Status DC Insulin Aspart (Novolog) 20 units TIDWMEALS SQ Last administered on 10/08/16 09:11; Start 10/07/16 at 17:00; Stop 10/08/16 at 11:56; Status DC Non-Formulary Medication 2 inh QID IH ; Start 10/07/16 at 17:00; Status UNV Metoprolol Tartrate (Lopressor) 100 mg BID PO Last administered on 10/09/16 08 :32; Start 10/07/16 at 21:00 Linagliptin (Tradjenta) 5 mg DAILY PO Last administered on 10/09/16 08:33; Start 10/07/16 at 15:00 Latanoprost 1 drop 1 drop QHS OU Last administered on 10/08/16 21:34; Start at 21:00 Sodium Bicarbonate/ Sodium Chloride (Iv Sodium Chloride 0.45%) 1,050 ml @ 75 mls/hr Q14H IV Last administered on 10/09/16 03:25; Start 10/07/16 at 15:00 Sodium Polystyrene Sulfonate (Kayexalate) 30 gm 1X ONCE PO Last administered on 10/07/16 14:49; Start 10/07/16 at 14:45; Stop 10/07/16 at 14:46; Status DC Sodium Bicarbonate 50 meq 1X ONCE IV ; Start 10/07/16 at 15:30; Stop 10/07/16 at 15:31; Status DC Insulin Human Regular (Novolin R Vial) 10 unit 1X ONCE IV ; Start 10/07/16 at 15:30; Stop 10/07/16 at 15:31; Status DC Dextrose (Dextrose 50%-Water Syringe) 10 gm 1X ONCE IV ; Start 10/07/16 at 15: 30; Stop 10/07/16 at 15:31; Status DC Sodium Polystyrene Sulfonate (Kayexalate) 30 gm 1X ONCE PO ; Start 10/07/16 at 15:45; Stop 10/07/16 at 15:46; Status DC Furosemide (Lasix) 40 mg 1X ONCE IVP ; Start 10/07/16 at 15:30; Stop 10/07/16 at 15:31; Status DC Sulfur Hexafluoride Microspheres (Lumason) 25 mg STK-MED ONCE IVP ; Start at 10:55; Stop 10/08/16 at 10:56; Status DC Tamsulosin HCl (Flomax) 0.4 mg BID PO Last administered on 10/09/16 08:33; Start 10/08/16 at 12:00 Gabapentin (Neurontin) 300 mg TID PO Last administered on 10/09/16 08:30; Start 10/08/16 at 14:00 Insulin Aspart (Novolog) 35 units TIDWMEALS SQ Last administered on 10/09/16 12:59; Start 10/08/16 at 12:00 Insulin Detemir (Levemir) 75 units QHS SQ Last administered on 10/08/16 21:44 ; Start 10/08/16 at 21:00 Sulfur Hexafluoride Microspheres (Lumason) 25 mg 1X ONCE IVP Last administered on 10/08/16 12:01; Start 10/08/16 at 12:00; Stop 10/08/16 at 12:01 ; Status DC Sodium Polystyrene Sulfonate (Kayexalate) 15 gm 1X ONCE PO Last administered on 10/08/16 13:35; Start 10/08/16 at 12:15; Stop 10/08/16 at 12:16; Status DC Lactic Acid (Lac-Hydrin) 1 nik BID TP Last administered on 10/09/16 11:35; Start 10/09/16 at 10:00 Active Scripts Active Meredith 5-325 Tablet (Acetaminophen/Hydrocodone Bitart) 1 Each Tablet 1 Tab PO PRN Q6HRS PRN Amlodipine Besylate 10 Mg Tablet 10 Mg PO DAILY Reported Furosemide 40 Mg Tablet 40 Mg PO HS Furosemide 80 Mg Tablet 80 Mg PO DAILY Meloxicam 15 Mg Tablet 15 Mg PO DAILY Combivent Respimat Inhal (Ipratropium/Albuterol Sulfate) 4 Gm Aer.w.adap 2 Inh IH QID Gabapentin 100 Mg Capsule 100 Mg PO TID Januvia (Sitagliptin Phosphate) 50 Mg Tablet 25 Mg PO DAILY Metoprolol Tartrate 100 Mg Tablet 1 Tab PO BID Niaspan (Niacin) 500 Mg Tab.er.24h 1,000 Mg PO HS Travatan Z (Travoprost) 5 Ml Drops 1 Drop EACHEYE QHS Humalog (Insulin Lispro) 100 Unit/1 Ml Insuln.pen 20 Unit SQ TIDAC Lantus (Insulin Glargine,Hum.rec.anlog) 100 Unit/1 Ml Vial 35 Unit SQ HS Primidone 50 Mg Tablet 200 Mg PO HS Pantoprazole Sodium 40 Mg Tablet.dr 1 Tab PO DAILY Lisinopril 20 Mg Tablet 1 Tab PO DAILY Finasteride 5 Mg Tablet 1 Tab PO DAILY Lipitor (Atorvastatin Calcium) 20 Mg Tablet 20 Mg PO HS Azopt (Brinzolamide) 10 Ml Drops.susp 10 Ml OP BID PRN Flomax (Tamsulosin Hcl) 0.4 Mg Cap.er.24h 0.4 Mg PO HS Zetia (Ezetimibe) 10 Mg Tablet 10 Mg PO DAILY Ecotrin (Aspirin) 81 Mg Tablet.dr 81 Mg PO Vitals/I & O Vital Sign - Last 24 Hours 10/08/16 10/08/16 10/08/16 10/08/16 15:12 15:29 19:30 19:36 Temp 97.9 98.2 97.9 98.2 Pulse 71 71 Resp 17 20 B/P 125/49 112/43 Pulse Ox 95 92 98 O2 Delivery Room Air Room Air Room Air Room Air 10/08/16 10/08/16 10/08/16 10/09/16 20:05 21:38 23:21 02:55 Temp 98.5 97.9 98.5 97.9 Pulse 71 69 71 Resp 18 18 B/P 112/43 120/38 95/65 Pulse Ox 96 92 O2 Delivery Room Air Room Air Room Air 10/09/16 10/09/16 10/09/16 10/09/16 07:17 07:40 08:00 08:00 Temp 98.7 98.7 Pulse 71 Resp 20 B/P 118/54 Pulse Ox 94 94 O2 Delivery Room Air Room Air Room Air Room Air 10/09/16 10/09/16 10/09/16 10/09/16 08:31 08:32 10:30 11:39 Temp 98.0 98.0 Pulse 80 73 69 Resp 18 B/P 118/54 118/54 121/60 Pulse Ox 94 91 O2 Delivery Room Air Room Air Intake and Output 10/08/16 10/08/16 10/09/16 15:00 23:00 07:00 Intake Total 1000 ml Output Total 450 ml 1050 ml Balance -450 ml -50 ml GISELLA WICK III DO Oct 09, 2016 13:22
--- NOTE | 2016-10-09 13:45 | PDOC ---
CARDIO Progress Notes Date and Time Date of Service 10/09/2016 Time of Evaluation 1350 Subjective Subjective: No Chest Pain, No shortness of breath, No Palpitations, No Dizziness Vitals Vitals Vital Signs Date Time Temp Pulse Resp B/P Pulse Ox O2 Delivery O2 Flow Rate FiO2 10/09/16 11:39 91 Room Air 10/09/16 10:30 98.0 69 18 121/60 98.0 Weight Weight [ ] Input and Output Intake and Output Intake and Output 10/09/16 07:00 Intake Total 1000 ml Output Total 1500 ml Balance -500 ml Intake Oral 1000 ml Output Urine Total 1500 ml # Bowel Movements 2 Laboratory Labs Laboratory Tests Test 10/08/16 16:57 10/08/16 20:48 10/09/16 04:45 10/09/16 11:32 Glucose (Fingerstick) 155mg/dL (70-99) 205mg/dL (70-99) 238mg/dL (70-99) White Blood Count 7.0x10^3/uL (4.0-11.0) Red Blood Count 3.73x10^6/uL (4.30-5.70) Hemoglobin 12.2g/dL (13.0-17.5) Hematocrit 38.1% (39.0-53.0) Mean Corpuscular Volume 102fL (79-100) Mean Corpuscular Hemoglobin 33pg (25-35) Mean Corpuscular Hemoglobin Concent 32g/dL (31-37) Red Cell Distribution Width 13.8% (11.5-14.5) Platelet Count 93x10^3/uL (140-400) Neutrophils (%) (Auto) 56% (31-73) Lymphocytes (%) (Auto) 25% (24-48) Monocytes (%) (Auto) 15% (0-9) Eosinophils (%) (Auto) 4% (0-3) Basophils (%) (Auto) 0% (0-3) Neutrophils # (Auto) 3.9x10^3uL (1.8-7.7) Lymphocytes # (Auto) 1.7x10^3/uL (1.0-4.8) Monocytes # (Auto) 1.0x10^3/uL (0.0-1.1) Eosinophils # (Auto) 0.3x10^3/uL (0.0-0.7) Basophils # (Auto) 0.0x10^3/uL (0.0-0.2) Sodium Level 142mmol/L (136-145) Potassium Level 4.6mmol/L (3.5-5.1) Chloride Level 104mmol/L (98-107) Carbon Dioxide Level 31mmol/L (21-32) Anion Gap 7 (6-14) Blood Urea Nitrogen 47mg/dL (8-26) Creatinine 2.1mg/dL (0.7-1.3) Estimated GFR (Cockcroft-Gault) 36.5 Glucose Level 187mg/dL (70-99) Calcium Level 8.4mg/dL (8.5-10.1) Physical Exam HEENT: Neck Supple W Full Motion Chest: Symmetric LUNGS: Other (diminished bases) Heart: S1S2, RRR (SR; a paced) Extremities: No Calf Tenderness, Other (2-3+ bilateral LE pitting edema) Neurology: alert, oriented, follow commands Assessment Assessment 1. Multiple mechanical falls with weakness: NO presyncope. Multifactorial 2. Right knee pain: due to above. defer to PCP 3. Chronic diastolic CHF: Compensated. TTE with normal EF and wall motion, no significant valvular disease 4. Rhabdomyolysis 5. BRITTON on CKD3/hyperkalemia with urinary retention: Improved per urology and nephrology 6. AICD: [employer]. for past NICM/SSS placed on 10/08/2012 7. HTN: controlled 8. HLP 9. Anemia of chronic disease 10. CAD: stents in the past. No cardiac symptoms. CP free. 11. COPD/DEYSI: CPAP home use Recommendations 1. No MAC records. Interrogation completed with normal functioning device. 2 NST episodes. AAIR with DDDR, Impedance [employer] 520 and 456 on R ventricle. Rep changed clocktime, battery life approx 5 months 93% A paced, <1% vpaced. 2. Continue secondary prevention 3. Follow up with Dr. Fierro upon discharge and to discussed Gen replacement 4. No further cardiac testing at this time, will follow as needed. PRAMOD MANCILLA APRN Oct 09, 2016 13:45
[2016-10-09 14:16] VITALS: BP 124/62
--- NOTE | 2016-10-09 15:28 | PDOC ---
SUBJECTIVE ROS BRITTON/ CKD IIi Doing better and UO is much mprved. Weak in lower ext OBJECTIVE Vital Signs Vital Signs Date Time Temp Pulse Resp B/P Pulse Ox O2 Delivery O2 Flow Rate FiO2 10/09/16 15:01 Room Air 10/09/16 14:16 98.3 69 124/62 95 98.3 10/09/16 10:30 18 I & 0 Intake and Output 10/09/16 07:00 Intake Total 1000 ml Output Total 1500 ml Balance -500 ml Intake Oral 1000 ml Output Urine Total 1500 ml # Bowel Movements 2 PHYSICAL EXAM Physical Exam General Appearance: Awake: Alert Oriented x 2 Neck: No JVD or JVP Chest: CTA Gal Heart: S1 S2 Abdomen - Soft NTND Extremities - No Edema DIAGNOSIS/ASSESSMENT Assessment & Plan BRITTON - resolved with IVF CKD III - ccreat is back to baseline ^K - resolved Problems: COMMENT/RELEVANT DATA Meds Current Medications Medications (Trade) Dose Ordered Sig/Heavenly Start Time Stop Time Status Last Admin Dose Admin Acetaminophen/ Hydrocodone Bitart (Lortab 5/325) 1 tab PRN Q6HRS PRN 10/07/16 14:15 Albuterol/ Ipratropium (Duoneb) 3 ml RTQID 10/07/16 16:00 10/09/16 15:01 3 ML Amlodipine Besylate (Norvasc) 10 mg DAILY 10/07/16 15:00 10/09/16 08:31 10 MG Aspirin (Ecotrin) 81 mg DAILY 10/07/16 15:00 10/09/16 08:33 81 MG Atorvastatin Calcium (Lipitor) 20 mg HS 10/07/16 21:00 10/08/16 21:36 20 MG Dextrose (Dextrose 50%-Water Syringe) 10 gm 1X ONCE 10/07/16 15:30 10/07/16 15:31 DC Dorzolamide HCl (Trusopt) 1 drop BID 10/07/16 21:00 10/09/16 08:33 1 DROP EZETIMIBE (Zetia) 10 mg DAILY 10/07/16 13:00 10/09/16 08:34 10 MG Finasteride (Proscar) 5 mg DAILY 10/07/16 13:00 10/09/16 08:30 5 MG Furosemide (Lasix) 40 mg 1X ONCE 10/07/16 15:30 10/07/16 15:31 DC Gabapentin (Neurontin) 300 mg TID 10/08/16 14:00 10/09/16 08:30 300 MG Insulin Aspart (Novolog) 35 units TIDWMEALS 10/08/16 12:00 10/09/16 12:59 35 UNITS Insulin Detemir (Levemir) 75 units QHS 10/08/16 21:00 10/08/16 21:44 75 UNITS Insulin Human Regular (Novolin R Vial) 10 unit 1X ONCE 10/07/16 15:30 10/07/16 15:31 DC Lactic Acid (Lac-Hydrin) 1 nik BID 10/09/16 10:00 10/09/16 11:35 1 NIK Latanoprost 1 drop 1 drop QHS 10/07/16 21:00 10/08/16 21:34 1 DROP Linagliptin (Tradjenta) 5 mg DAILY 10/07/16 15:00 10/09/16 08:33 5 MG Metoprolol Tartrate (Lopressor) 100 mg BID 10/07/16 21:00 10/09/16 08:32 100 MG Niacin (Slo-Niacin) 1,000 mg HS 10/07/16 21:00 10/08/16 21:36 1,000 MG Non-Formulary Medication 2 inh QID 10/07/16 17:00 UNV Ondansetron HCl (Zofran) 4 mg PRN Q6HRS PRN 10/07/16 13:57 Ondansetron HCl 4 mg 4 mg PRN Q8HRS PRN 10/07/16 12:45 10/07/16 13:59 DC Pantoprazole Sodium (Protonix) 40 mg DAILYAC 10/07/16 15:00 10/09/16 06:10 40 MG Primidone (Mysoline) 200 mg HS 10/07/16 21:00 10/08/16 21:37 200 MG Sodium Bicarbonate/ Sodium Chloride (Iv Sodium Chloride 0.45%) 1,050 ml @ 75 mls/hr Q14H 10/07/16 15:00 10/09/16 03:25 75 MLS/HR Sodium Polystyrene Sulfonate (Kayexalate) 15 gm 1X ONCE 10/08/16 12:15 10/08/16 12:16 DC 10/08/16 13:35 15 GM Sodium Bicarbonate 50 meq 1X ONCE 10/07/16 15:30 10/07/16 15:31 DC Sodium Chloride (Iv Sodium Chloride 0.9% 1000ml Bag) 1,000 ml @ 75 mls/hr [id number] 10/07/16 12:39 10/07/16 14:06 DC Sulfur Hexafluoride Microspheres (Lumason) 25 mg 1X ONCE 10/08/16 12:00 10/08/16 12:01 DC 10/08/16 12:01 25 MG Tamsulosin HCl (Flomax) 0.4 mg BID 10/08/16 12:00 10/09/16 08:33 0.4 MG Lab Laboratory Tests Test 10/08/16 16:57 10/08/16 20:48 10/09/16 04:45 10/09/16 11:32 Glucose (Fingerstick) 155mg/dL (70-99) 205mg/dL (70-99) 238mg/dL (70-99) White Blood Count 7.0x10^3/uL (4.0-11.0) Red Blood Count 3.73x10^6/uL (4.30-5.70) Hemoglobin 12.2g/dL (13.0-17.5) Hematocrit 38.1% (39.0-53.0) Mean Corpuscular Volume 102fL (79-100) Mean Corpuscular Hemoglobin 33pg (25-35) Mean Corpuscular Hemoglobin Concent 32g/dL (31-37) Red Cell Distribution Width 13.8% (11.5-14.5) Platelet Count 93x10^3/uL (140-400) Neutrophils (%) (Auto) 56% (31-73) Lymphocytes (%) (Auto) 25% (24-48) Monocytes (%) (Auto) 15% (0-9) Eosinophils (%) (Auto) 4% (0-3) Basophils (%) (Auto) 0% (0-3) Neutrophils # (Auto) 3.9x10^3uL (1.8-7.7) Lymphocytes # (Auto) 1.7x10^3/uL (1.0-4.8) Monocytes # (Auto) 1.0x10^3/uL (0.0-1.1) Eosinophils # (Auto) 0.3x10^3/uL (0.0-0.7) Basophils # (Auto) 0.0x10^3/uL (0.0-0.2) Sodium Level 142mmol/L (136-145) Potassium Level 4.6mmol/L (3.5-5.1) Chloride Level 104mmol/L (98-107) Carbon Dioxide Level 31mmol/L (21-32) Anion Gap 7 (6-14) Blood Urea Nitrogen 47mg/dL (8-26) Creatinine 2.1mg/dL (0.7-1.3) Estimated GFR (Cockcroft-Gault) 36.5 Glucose Level 187mg/dL (70-99) Calcium Level 8.4mg/dL (8.5-10.1) NHI DUMONT MD Oct 09, 2016 15:28
--- NOTE | 2016-10-19 21:48 | DS ---
DATE OF DISCHARGE: 10/09/2016 ADMISSION DIAGNOSIS: Hyperkalemia. DISCHARGE DIAGNOSIS: Resolving hyperkalemia. HOSPITAL COURSE: The patient is a pleasant middle-aged male, who presented with hyperkalemia. He was admitted. We gave him Kayexalate ____. He was dialyzed, resolved and went home with him in 2 days. DISPOSITION: Home. ACTIVITY: As tolerated. DIET: Low sodium. MEDICATIONS: Please see the MRAD. TOTAL TIME ON DISCHARGE: 36 minutes. GISELLA WICK DO DR: JANEL/danielle JOB#: [id number] / [id number]
== END 2016-10-09 16:00 | disposition home or self-care (01) | DRG 683 ==
LOC: ER 10:57 → 2 NORTH 12:39
PROVIDERS: ADMIT Internal Medicine; ATTEND Internal Medicine
DX: N17.0 Acute kidney failure with tubular necrosis (principal); I13.0 Hypertensive heart and chronic kidney disease with heart failure and stage 1 through stage 4 chronic kidney disease, or unspecified chronic kidney disease; I50.32 Chronic diastolic (congestive) heart failure; M62.82 Rhabdomyolysis; Z68.41 Body mass index [BMI] 40.0-44.9, adult; I42.9 Cardiomyopathy, unspecified; E87.5 Hyperkalemia; D63.8 Anemia in other chronic diseases classified elsewhere; E11.21 Type 2 diabetes mellitus with diabetic nephropathy; E11.22 Type 2 diabetes mellitus with diabetic chronic kidney disease; E11.42 Type 2 diabetes mellitus with diabetic polyneuropathy; E78.00 Pure hypercholesterolemia, unspecified; E78.5 Hyperlipidemia, unspecified; F03.90 Unspecified dementia, unspecified severity, without behavioral disturbance, psychotic disturbance, mood disturbance, and anxiety; G47.33 Obstructive sleep apnea (adult) (pediatric); I25.10 Atherosclerotic heart disease of native coronary artery without angina pectoris; I87.8 Other specified disorders of veins; J44.9 Chronic obstructive pulmonary disease, unspecified; K21.9 Gastro-esophageal reflux disease without esophagitis; N18.3 Chronic kidney disease, stage 3 (moderate); N40.1 Benign prostatic hyperplasia with lower urinary tract symptoms; R29.6 Repeated falls; R33.8 Other retention of urine; E66.01 Morbid (severe) obesity due to excess calories; Z79.899 Other long term (current) drug therapy; Z79.4 Long term (current) use of insulin; Z90.49 Acquired absence of other specified parts of digestive tract; Z95.5 Presence of coronary angioplasty implant and graft; M19.90 Unspecified osteoarthritis, unspecified site; Z95.0 Presence of cardiac pacemaker
CPT/HCPCS: 99285; C8929; 36415; 71010; 76770; 80048; 80053; 81001; 82550; 82962; 83036; 83735; 83874; 83880; 84132; 84443; 84484; 85027; 93005; 94640; J1815; J7042; J7620; 97535; Q9950

== ENCOUNTER 2016-11-26 10:41 | Emergency (ER) | payer MEDICARE, OTHER ==
[~2016-11-26 10:41] MED LIST changes: +EZET10TA18 PO; -EZET10TA3 PO; +FURO40TA4 PO; +FURO80TA3 PO; +IPRA4AER IH; +MELO15TA23 PO; +NITR0.4T22 SL; -NITR0.4T6 SL
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
[2016-11-26] MEDS ORDERED: fentaNYL PF VIAL 100 MCG/2 ML VIAL IV ONE (11:30)
--- NOTE | 2016-11-26 12:02 | RAD ---
EXAM: Left lower extremity venous Doppler. HISTORY: Left lower extremity pain/swelling. COMPARISON: None. FINDINGS: Grayscale and Doppler analysis of the left lower extremity deep venous system was performed with graded compression and augmentation. The common femoral, greater saphenous, superficial femoral, popliteal and calf veins were assessed. There is no evidence of deep venous thrombosis. Subcutaneous edema is noted. IMPRESSION: 1. No evidence of deep venous thrombosis.
[2016-11-26 12:15] LABS: BASO % 0 % (0-3); EOS % 2 % (0-3); HEMATOCRIT 38.6 % (39.0-53.0); HEMOGLOBIN 12.6 g/dL (13.0-17.5); LYMPH # 1.6 x10^3/uL (1.0-4.8); LYMPH % 20 % (24-48); MEAN CORPUSCULAR HEMOGLOBIN 33 pg (25-35); MEAN CORPUSCULAR HGB CONC 33 g/dL (31-37); MEAN CORPUSCULAR VOLUME 103 fL (79-100); MONO % 15 % (0-9); NEUT % 63 % (31-73); PLATELET COUNT 125 x10^3/uL (140-400); RED BLOOD COUNT 3.77 x10^6/uL (4.30-5.70); WHITE BLOOD COUNT 8.2 x10^3/uL (4.0-11.0)
[2016-11-26 12:24] LABS: INR 1.1 (0.8-1.1); PROTHROMBIN TIME PATIENT 13.8 SEC (11.7-14.0)
--- NOTE | 2016-11-26 12:28 | RAD ---
EXAM: Left lower extremity arterial Doppler. HISTORY: Left lower and pain. COMPARISON: None. FINDINGS: Grayscale and Doppler analysis of the left lower tibia arterial system was performed. There are biphasic waveforms within the left common femoral and deep femoral arteries. There are monophasic waveforms from the proximal superficial femoral artery through the ankle. There is flow within the dorsalis pedis artery. IMPRESSION: 1. Mildly flow-limiting stenosis proximal to the left common femoral artery becomes severe in the region of the proximal superficial femoral artery. There is flow.
[2016-11-26 12:29] LABS: CREATININE 2.9 mg/dL (0.7-1.3); GFR 25.2; POTASSIUM 5.3 mmol/L (3.5-5.1)
[2016-11-26 12:35] LABS: ALBUMIN 3.7 g/dL (3.4-5.0); TOTAL PROTEIN 8.4 g/dL (6.4-8.2)
[2016-11-26 12:36] LABS: ALBUMIN/GLOBULIN RATIO 0.8 (1.0-1.7); MAGNESIUM 1.9 mg/dL (1.8-2.4); TOTAL BILIRUBIN 0.3 mg/dL (0.2-1.0)
[2016-11-26 13:35] VITALS: BP 110/65
[2016-11-26] MEDS ORDERED: HYDR-971 PO (13:39)
== END 2016-11-26 13:50 | disposition home or self-care (01) ==
LOC: ER 10:41
DX: L97.921 Non-pressure chronic ulcer of unspecified part of left lower leg limited to breakdown of skin (principal); I25.10 Atherosclerotic heart disease of native coronary artery without angina pectoris; I11.0 Hypertensive heart disease with heart failure; I50.9 Heart failure, unspecified; J44.9 Chronic obstructive pulmonary disease, unspecified; K21.9 Gastro-esophageal reflux disease without esophagitis; E78.00 Pure hypercholesterolemia, unspecified; Z95.0 Presence of cardiac pacemaker; Z90.49 Acquired absence of other specified parts of digestive tract
CPT/HCPCS: 36415; 80053; 82550; 83735; 83880; 85027; 85610; 85730; 93923; 93971; 96374; 99285; J3010

== ENCOUNTER 2016-12-03 11:25 | Emergency (ER) | payer MEDICARE, OTHER ==
[~2016-12-03] VITALS: Ht 175.3 cm; Wt 131.5 kg
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
[2016-12-03 13:15] LABS: BILIRUBIN,URINE NEGATIVE (NEG); GLUCOSE,URINE NEGATIVE (NEG); NITRITE,URINE NEGATIVE (NEG); PROTEIN,URINE NEGATIVE (NEG-TRACE); UROBILINOGEN,URINE 0.2 mg/dL (0.2 mg/dL)
[2016-12-03 13:51] LABS: BACTERIA,URINE 0 /HPF (0-FEW); RBC,URINE TNTC /HPF (0-2); SQUAMOUS EPITHELIAL CELL,UR OCC /LPF; WBC,URINE OCC /HPF (0-4)
[2016-12-03 14:30] VITALS: BP 175/84
== END 2016-12-03 14:43 | disposition home or self-care (01) ==
LOC: ER 11:25
DX: R31.9 Hematuria, unspecified (principal); E78.00 Pure hypercholesterolemia, unspecified; I11.0 Hypertensive heart disease with heart failure; I50.9 Heart failure, unspecified; I25.10 Atherosclerotic heart disease of native coronary artery without angina pectoris; J44.9 Chronic obstructive pulmonary disease, unspecified; K21.9 Gastro-esophageal reflux disease without esophagitis; Z90.49 Acquired absence of other specified parts of digestive tract; Z95.0 Presence of cardiac pacemaker; Z95.5 Presence of coronary angioplasty implant and graft; N40.0 Benign prostatic hyperplasia without lower urinary tract symptoms
CPT/HCPCS: 81001; 99283; P9612

== ENCOUNTER 2016-12-06 09:05 | Inpatient (IN) | payer MEDICARE, OTHER ==
[~2016-12-06] VITALS: Ht 175.3 cm; Wt 132.4 kg
[2016-12-06] MEDS: IV NORMAL SALINE 1000ML BAG 1,000 ML IV SCH ×2 (00:45→12:01)
[2016-12-06 09:57] LABS: BASO % 0 % (0-3); EOS % 2 % (0-3); HEMATOCRIT 36.1 % (39.0-53.0); HEMOGLOBIN 11.9 g/dL (13.0-17.5); LYMPH # 1.3 x10^3/uL (1.0-4.8); LYMPH % 17 % (24-48); MEAN CORPUSCULAR HEMOGLOBIN 33 pg (25-35); MEAN CORPUSCULAR HGB CONC 33 g/dL (31-37); MEAN CORPUSCULAR VOLUME 101 fL (79-100); MONO % 13 % (0-9); NEUT % 67 % (31-73); PLATELET COUNT 113 x10^3/uL (140-400); RED BLOOD COUNT 3.57 x10^6/uL (4.30-5.70); RED CELL DISTRIBUTION WIDTH 14.1 % (11.5-14.5); WHITE BLOOD COUNT 7.2 x10^3/uL (4.0-11.0)
--- NOTE | 2016-12-06 09:57 | EKG ---
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
[2016-12-06] MEDS ORDERED: IV NORMAL SALINE 500ML BAG 500 ML IV ONE (10:00)
[2016-12-06 10:01] LABS: BILIRUBIN,URINE NEGATIVE (NEG); GLUCOSE,URINE NEGATIVE (NEG); NITRITE,URINE NEGATIVE (NEG); PH,URINE 5.5; PROTEIN,URINE 30 mg/dL (NEG-TRACE); UROBILINOGEN,URINE 0.2 mg/dL (0.2 mg/dL)
[2016-12-06 10:05] LABS: INR 1.2 (0.8-1.1); PROTHROMBIN TIME PATIENT 14.6 SEC (11.7-14.0)
--- NOTE | 2016-12-06 10:11 | RAD ---
Indication hypotension. A single view of the chest was obtained. Comparison is made to an examination 10/07/2016. Heart size is unchanged. There is no gross congestive heart failure. There has not been a significant change compared to the previous exam. A focal or acute process is not seen. Defibrillating and bipolar cardiac pacing device is noted. IMPRESSION: No acute finding. No significant change
[2016-12-06 10:17] LABS: BACTERIA,URINE 0 /HPF (0-FEW); RBC,URINE TNTC /HPF (0-2)
--- NOTE | 2016-12-06 10:30 | RAD ---
CT of the head without contrast, 12/06/2016: History: Dizziness Comparison is made to a study from 06/22/2014. There is moderate cerebral atrophy. There are mild bilateral deep white matter lucencies compatible with chronic ischemic change. The ventricles are mildly enlarged on a compensatory basis. There is no shift of the midline structures. There is no evidence of acute intracranial hemorrhage or mass effect. There is moderate calcific plaquing of the distal internal carotid and vertebral arteries. IMPRESSION: 1. Chronic findings as described above. 2. No acute intracranial abnormality is detected. PQRS Compliance Statement: One or more of the following individualized dose reduction techniques were utilized for this examination: 1. Automated exposure control 2. Adjustment of the mA and/or kV according to patient size 3. Use of iterative reconstruction technique
[2016-12-06] MEDS ORDERED: fentaNYL PF VIAL 100 MCG/2 ML VIAL IV PRN (11:00)
[2016-12-06 11:15] LABS: CALCIUM 8.3 mg/dL (8.5-10.1); CREATININE 3.7 mg/dL (0.7-1.3); POTASSIUM 5.1 mmol/L (3.5-5.1)
[2016-12-06 11:21] LABS: ALBUMIN 3.3 g/dL (3.4-5.0); ALBUMIN/GLOBULIN RATIO 0.9 (1.0-1.7); MAGNESIUM 1.6 mg/dL (1.8-2.4); TOTAL BILIRUBIN 0.2 mg/dL (0.2-1.0); TOTAL PROTEIN 6.9 g/dL (6.4-8.2)
[2016-12-06] MEDS ORDERED: MORPHINE SULFATE 2 MG/ML DISP.SYRIN. IV PRN (12:15)
[2016-12-06] MEDS ORDERED: ONDANSETRON PF 4 MG/2 ML VIAL. IV PRN (12:15)
--- NOTE | 2016-12-06 14:18 | HP ---
ADMIT DATE: 12/06/2016 CHIEF COMPLAINT: Hypotension. HISTORY OF PRESENT ILLNESS: The patient is a pleasant 86-year-old male who follows with Dr. Silvestre Fierro for Cardiology. Apparently was at Dr. Fierro's office today and became hypotensive and into the 60s. He was sent here. When he got here, his pressure was 69; we gave him fluids now it is 169. He is doing better, but to be safe we are going to admit the patient, will be consulting our cardiology team. PAST MEDICAL HISTORY: Permanent pacemaker, CHF, cardiac stents, diabetes, hypertension, hyperlipidemia, and obesity. ALLERGIES: None. FAMILY HISTORY: Coronary artery disease. 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 He does not drink, smoke or take drugs. MEDICATIONS: Reviewed, please refer to the MRAD. REVIEW OF SYSTEMS: GENERAL: He complaints of weakness. SKIN: No bruising, hair changes or rashes. EYES: No blurred, double or loss of vision. NOSE AND THROAT: No history of nosebleeds, hoarseness or sore throat. HEART: No history of palpitations, chest pain or shortness of breath on exertion. LUNGS: Denies cough, hemoptysis, wheezing or shortness of breath. GASTROINTESTINAL: Denies changes in appetite, nausea, vomiting, diarrhea or constipation. GENITOURINARY: No history of frequency, urgency, hesitancy or nocturia. NEUROLOGIC: Denies history of numbness, tingling, tremor or weakness. PSYCHIATRIC: No history of panic, anxiety or depression. ENDOCRINE: No history of heat or cold intolerance, polyuria or polydipsia. EXTREMITIES: Denies muscle weakness, joint pain, pain on walking or stiffness. PHYSICAL EXAMINATION: VITAL SIGNS: Temperature afebrile, pulse 62, respirations 18, and blood pressure 116/67. GENERAL: He is alert, cooperative, flat affect, but pleasant. HEART: Normal S1, S2, with distant heart sounds. LUNGS: Diminished, but clear. ABDOMEN: Soft and obese. EXTREMITIES: 1+ edema. SKIN: No rashes. PSYCHIATRIC: He has a flat affect, but stable. VASCULAR: Good capillary refill. ENDOCRINE: No thyromegaly. LYMPHATICS: No cervical nodes. HEMATOPOIETIC: No bruising. ASSESSMENT AND PLAN: Resolving hypotension, now with hypertension, suspect autonomic dysfunction. The patient has been admitted. We will consult Cardiology, continue his home medications, except for his blood pressure medications, PT, OT, and frequent labs. GISELLA WICK DO DR: JANEL/danielle JOB#: [id number] / [id number]
--- NOTE | 2016-12-06 14:34 | ACF ---
Admission Forms Criteria GENERAL ADMISSION CRITERIA (Place 'X' for any and all applicable criteria): Admission is indicated for ANY ONE of the following: [ ]I. Hemodynamic instability as indicated by ANY ONE of the following(1)(2) (3)(4)(5): [ ]a) Vital sign abnormality not readily corrected by appropriate treatment within 12 to 24 hours indicated by ANY ONE of the following: [ ]i) Hypotension [ ]ii) Symptomatic Tachycardia unresponsive to treatment (eg , analgesia, fluids, sedation as indicated) [ ]iii) Orthostatic vital sign changes unresponsive to treatment (eg, fluids) [ ]b) Vital sign abnormality that is severe indicated by ANY ONE of the following: [ ]i) Inadequate perfusion indicated by ANY ONE of the following: [ ]1) Lactic acidosis (greater than 2 mmol/L) [ ]2) New abnormal capillary refill (greater than 3 seconds) [ ]3) Other metabolic acidosis (arterial pH less than 7.35) not otherwise explained [ ]4) Reduced urine output [ ]5) Altered mental status [ ]6) Myocardial Ischemia [ ]v) Mean arterial pressure[A] less than 60 mm Hg [ ]vi) Mean arterial pressure[A] less than 70 mm Hg after 30 minutes of appropriate treatment (eg, fluid resuscitation) [ ]vii) IV inotropic or vasopressor medication required to maintain adequate blood pressure or perfusion [ ]viii) Sustained heart rate greater than 120 beats per minute in adult or child 6 years or older[B]] [ ]II. Hypertension requiring inpatient treatment as indicated by ANY ONE of the following(6)(7)(8): [ ]a) SBP greater than 220 mm Hg or DBP greater than 120 mm Hg despite treatment [ ]b) SBP greater than 140 mm Hg or DBP greater than 100 mm Hg with evidence of acute end organ damage as indicated by ANY ONE of the following: [ ]i) Encephalopathy [ ]ii) Acute renal failure as indicated by new onset of ANY ONE of the following(9)(10)(11)(12)(13): [ ]1) A 3-fold rise in serum creatinine from baseline [ ]2) Serum creatinine greater than 4 mg/dL ( 354 micromoles/L) with acute rise greater than 0.5 mg/dL (44.2 micromoles/L) [ ]3) Reduction of more than 75% in estimated glomerular filtration rate from baseline [ ]4) Estimated glomerular filtration rate less than 35 mL/min/1.73m2 (0.59 mL/sec/1.73m2) in child up to 18 years of age [ ]5) Cessation of urine output indicated by ALL of the following: [ ]A. Adequate volume status [ ]B. Inadequate urine output as indicated by ANY ONE of the following: [ ]a. Urine output less than 0.3 mL/kg/hr for 24 hours [ ]b. Anuria (urine output less than 0.1 mL/kg/hr) for 12 hours [ ]iii) Aortic dissection [ ]iv) Myocardial ischemia [ ]v) Left ventricular heart failure [ ]vi) Retinal hemorrhage [ ]vii) Other significant finding [ ]c) Hypertension in child requiring inpatient treatment as indicated by ALL of the following(14)(15)(16): [ ]i) Outpatient treatment not effective, not available, or not appropriate [ ]ii) SBP or DBP greater than 95th percentile for age [ ]iii) Evidence of acute end organ damage as indicated by ANY ONE of the following: [ ]1) Altered mental status [ ]2) Acute renal failure as indicated by new onset of ANY ONE of the following(9)(10)(11)(12)(13): [ ]A. A 3-fold rise in serum creatinine from baseline [ ]B. Serum creatinine greater than 4 mg/dL (354 micromoles/L) with acute rise greater than 0.5 mg/dL (44.2 micromoles/L) [ ]C. Reduction of more than 75% in estimated glomerular filtration rate from baseline [ ]D. Estimated glomerular filtration rate less than 35 mL/min/1.73m2 (0.59 mL/sec/1.73m2)in child up to 18 years of age [ ]E. Cessation of urine output indicated by ALL of the following: [ ]a. Adequate volume status [ ]b. Inadequate urine output as indicated by ANY ONE of the following: [ ]1) Urine output less than 0.3 mL/kg/hr for 24 hours [ ]2) Anuria (urine output less than 0.1 mL/kg/hr) for 12 hours [ ]3) Severe headache [ ]4) Visual disturbance [ ]5) Retinal hemorrhage [ ]6) Other significant finding [ ]III. Acute cardiac or peripheral ischemia as indicated by ANY ONE of the following: [ ]a) Acute coronary syndrome(17)(18) [ ]b) Acute peripheral ischemia (eg, pulseless, cool, mottled, or cyanotic extremity)(19) [ ]IV. Cardiac arrhythmias or findings of immediate concern indicated by ANY ONE of the following(20)(21): [ ]a) Heart rhythms that are inherently dangerous or unstable indicated by ANY ONE of the following(22)(23)(24): [ ]i) Resuscitated ventricular fibrillation or cardiac arrest [ ]ii) Ventricular escape rhythm [ ]iii) Sustained ventricular tachycardia (30 seconds or more of ventricular rhythm at greater than 100 beats per minute) [ ]iv) Nonsustained ventricular tachycardia and ANY ONE of the following: [ ]1) Suspected cardiac ischemia as cause or consequence of ventricular tachycardia [ ]2) In setting of acute myocarditis [ ]b) Unstable cardiac conduction defects indicated by ANY ONE of the following(24)(25)(26): [ ]i) Type II second-degree atrioventricular block [ ]ii) Third-degree atrioventricular block [ ]iii) New-onset left bundle branch block with suspected myocardial ischemia [ ]c) Any heart rhythm and ANY ONE of the following(22)(23)(27)(28)( 29): [ ] i) Continuous long-term ECG monitoring needed (eg, initiation of drug requiring monitoring for more than 24 hours) [ ] ii) Patient has automatic implanted cardioverter defibrillator that is repeatedly firing, malfunctioning, or in need of immediate adjustment of settings beyond the scope of ambulatory or observation care. [ ]d) Heart rhythms of concern due to ANY ONE of the following: [ ]i) Hypotension [ ]ii) Respiratory distress [ ]iii) Association with other significant symptoms (eg, bradycardia with syncope or ongoing dizziness, supraventricular tachycardia with chest pain) (27)(28) (30) [ ] V. Severe heart failure as indicated by ANY ONE of the following ( 31)(32): [ ]a) Respiratory distress [ ]b) Hypotension [ ]c) Anasarca (refractory to outpatient therapy) [ ]d) Cardiac arrhythmias of immediate concern [ ]e) Myocardial ischemia [ ]. Respiratory abnormalities, including ANY ONE of the following(33)(34) (35)(36): [ ]a) Respiratory rate greater than 30 breaths per minute unresponsive to treatment [A] [ ]b) New saturation of arterial oxygen less than 90% [ ]c) New partial pressure of carbon dioxide greater than 44 mm Hg ( 5.9 kPa) [ ]d) Supplemental oxygen or respiratory treatments needed that are new or not performable at other levels of care [ ]e) New-onset cyanosis [ ]f) Inability to protect airway [ ]g) Chronic lung disease with severe deterioration (not responsive to emergency and observation care treatment as appropriate) as indicated by ANY ONE of the following(34)(36 ): [ ]i) SaO2 5% below baseline in patient with chronic hypoxemia [ ]ii) New requirement for supplemental oxygen to keep SaO2 at baseline or acceptable level [ ]iii) Required supplemental oxygen performable only in acute inpatient setting [ ]iv) Severe airflow or ventilation abnormalities [ ]v) Previously mobile patient unable to walk between rooms [ ]vi Inability to eat or sleep due to dyspnea [ ]vii) Rapid rate of exacerbation onset [ ]viii) Altered mental status ]VII. Severe airflow or ventilation abnormalities (not responsive to emergency and observation care treatment as appropriate) as indicated by ANY ONE of the following(33)(34)(35)(37): [ ]a) PCO2 greater than 42 mm Hg (5.6 kPa) and pH less than 7.35 (new ) [ ]b) Documented PCO2 increased more than 5 mm Hg (0.7 kPa) from disease baseline [ ]c) Airflow measurements [B] less than 60% of previous best or predicted (eg, peak expiratory flow rate less than 300 L/minute) despite intensive emergent treatment [C] [ ]d) Required respiratory treatments that are performable only in acute inpatient setting [ ]VIII. Impending or actual respiratory arrest ( Also use Respiratory Failure GRG for severe respiratory disease and long-term mechanical ventilation patients) [ ]IX. Neurologic abnormalities, including ANY ONE of the following: [ ]a) New findings that suggest ANY ONE of the following: [ ]i) COMPUTER ANALYST SUPERVISOR infection(38) [ ]ii) Cerebral bleeding, ischemia, or vasospasm(39)(40) [ ]iii) Increased intracranial pressure, hydrocephalus, or cerebral edema(41)(42)(43) [ ]iv) Spinal cord injury(44) [ ]b) Uncontrolled seizures(45) [ ]c) New-onset coma (eg, Leidy coma scale score less than 9) or unexplained abnormal mental status (eg, Leidy coma scale score less than 14) [D](41)(46)(47) [ ]X. New-onset severe neurologic findings requiring inpatient care; examples include(42)(48)(49): [ ]a) Papilledema [ ]b) Cerebral edema [ ]c) Mass effect on CT scan [ ]XI. Suspected acute intra-abdominal process with peritoneal signs, abdominal mass, or similar findings (50)(51)(52) [ ]XII. Severe physiologic disorder remaining after emergency or observation level care (as appropriate) as indicated by ANY ONE of the following (53): [ ]a) Significant dehydration [ ]b) Diabetic ketoacidosis [ ]c) Hyperglycemic hyperosmolar state (eg, osmolality greater than 320 mOsm/kg (mmol/kg) [ ]d) Hypoglycemia [ ]e) Other (new) acid-base disorder with pH less than 7.35 or greater than 7.5(54) [ ]f) Thyroid storm (55) [ ]g) Myxedema coma (55) [ ]XIII. Abdominal abnormalities with ANY ONE of the following(56)(57): [ ]a) Absent bowel sounds with complete ileus [ ]b) Signs of intestinal obstruction or peritonitis [E] [ ]c) Nausea and vomiting that cannot be controlled with outpatient or observation care [ ]XIV. Acute renal failure as indicated by new onset of ANY ONE of the following(9)(10)(11)(12)(13): [ ]a) A 3-fold rise in serum creatinine from baseline [ ]b) Serum creatinine greater than 4 mg/dL (354 micromoles/L) with acute rise greater than 0.5 mg/dL (44.2 micromoles/L) [ ]c) Reduction of more than 75% in estimated glomerular filtration rate from baseline [ ]d) Estimated glomerular filtration rate less than 35 mL/min/ 1.73m2 (0.59 mL/sec/1.73m2) in child up to 18 years of age [ ]e) Cessation of urine output indicated by ALL of the following: [ ]i) Adequate volume status [ ]ii) Inadequate urine output as indicated by ANY ONE of the following: [ ]1) Urine output less than 0.3 mL/kg/hr for 24 hours [ ]2) Anuria (urine output less than 0.1 mL/kg/hr) for 12 hours [ ]XV. Significant uremic complications as indicated by ANY ONE of the following(58)(59)(60): [ ]a) Outpatient therapy is ineffective or not feasible for ANY ONE of the following: [ ]i) Severe heart failure [ ]ii) Severehypertension [ ]iii) Pleural effusion [ ]iv) Pericarditis or pericardial effusion [ ]b) Cardiac arrhythmias of immediate concern [ ]c) Intractable nausea or vomiting [ ]d) Recurrent seizures [ ]e) Encephalopathy [ ]f) Bleeding abnormalities (eg, platelet dysfunction) with active (eg, gastrointestinal) bleeding [ ]g) Dialysis indicated before long-term access or ambulatory arrangements can be made [ ]h) Significant metabolic or electrolyte abnormalities (eg, severe acidosis or hyperkalemia) [ ]XVI. High fever or other high-risk infection situation as indicated by ANY ONE of the following(61)(62)(63)(64): [ ]a) Outpatient and observation care antimicrobial treatment unavailable, not effective, or not appropriate [ ]b) Documented bacteremia [ ]c) Temperature greater than 40.5 degrees C (104.9 degrees F) ( oral) [ ]d) Temperature greater than 39.5 degrees C (103.1 degrees F) ( oral) or less than 36 degrees C (96.8 degrees F) (rectal) that does not respond to e treatment and observation care [ ] XVII. Temperature less than 95 degrees F (35 degrees C)(rectal)(65) [ ] XVIII. Severe nutritional abnormalities as indicated by ALL of the following (66)(67): [ ]a) Inability to tolerate or establish sufficient oral or other enteral nutrition in outpatient setting [ ]b) Parenteral nutrition regimen need that must be implemented on inpatient basis [ ] XIX. Severe electrolyte abnormalities indicated by ALL of the following(68) (69)(70): [ ]a) Electrolytes and associated findings are not as expected for patient baseline or acceptable treatment effects. [ ]b) Severe abnormalities indicated by ANY ONE of the following: [ ]i) Sodium less than 130 mEq/L (mmol/L) (new) [ ]ii)Sodium less than 135 mEq/L (mmol/L) with ANY ONE of the following: [ ]1) Uncorrectable (to near normal or chronic baseline) after trial of outpatient and emergency treatment [ ]2) Altered mental status [ ]3) Seizures [ ]4) Severe medical etiology requiring inpatient management (eg, heart failure, hypovolemia) [ ]iii) Sodium greater than 155 mEq/L (mmol/L) [ ]iv) Sodium greater than 150 mEq/L (mmol/L) with ANY ONE of the following: [ ]1) Uncorrectable (to near normal or chronic baseline) with outpatient and emergency treatment [ ]2) Altered mental status [ ]3) Seizures [ ]4) Severe medical etiology (eg, hypovolemia, diabetes insipidus) [ ]v) Potassium less than 2.5 mEq/L (mmol/L) despite outpatient and emergency treatment [ ]vi) Potassium less than 3 mEq/L (mmol/L) with ANY ONE of the following: [ ]1) Weakness [ ]2) Cardiac abnormality (eg, arrhythmia, conduction disturbance) [ ]3) Cardiac ischemia [ ]4) Ileus [ ]5) Ongoing medical cause requiring inpatient management (eg, acute renal wasting or SIADH) [ ]6) Other severe symptoms [ ]vii) Potassium greater than 6.5 mEq/L (mmol/L) [ ]viii) Potassium greater than 5 mEq/L (mmol/L) with ANY ONE of the following: [ ]1) Uncorrectable (to near normal or chronic baseline) with outpatient and emergency treatment [ ]2) Severe ECG findings [F] [ ]3) Acute worsening of renal failure (creatinine greater than 2.5 mg/dL (221 micromoles/L) or significant elevation for age and size) [ ]4) Severe weakness [ ]5) Severe medical etiology (eg, hemolysis, infection, drug overdose) [ ]ix) Calcium less than 7 mg/dL (1.75 mmol/L) despite outpatient and emergency treatment (72) [ ]x) Calcium less than 8 mg/dL (2 mmol/L) with significant symptoms or findings; examples include(72): [ ]1) Altered mental status [ ]2) Muscle spasms [ ]3) Seizures [ ]4) Breathing difficulty [ ]5) Cardiac abnormality (eg, arrhythmia or conduction disturbance) [ ]xi) Calcium greater than 14 mg/dL (3.5 mmol/L)(72) [ ]xii) Calcium greater than 12 mg/dL (3 mmol/L) with ANY ONE of the following(72): [ ]1) Uncorrectable (to near normal or chronic baseline) with outpatient and emergency treatment [ ]2) Significant dehydration or hypovolemia as indicated by ALL of the following(70)(73)(74): [ ]A. Not resolved with initial treatments [ ]B. Clinically significant dehydration as indicated by ANY ONE of the following: [ ]a. Vomiting refractory to outpatient treatment (ie, precluding oral rehydration) [ ]b. Inability to drink [ ]c. Hypernatremia or other electrolyte abnormality unable to be corrected with outpatient and emergency treatment [ ]d. Failure to remain hydrated with outpatient therapy [ ]e. Reduced urine output [ ]f. Hypotension [ ]g. Serious cause for dehydration requiring acute hospitalization (eg, bowel obstruction, increased intracranial pressure, infectious cause) [ ]h. Child with ANY ONE of the following(75): [ ]1) Severe abdominal tenderness [ ]2) Adequate care not available at home [ ]3) Severe dehydration ( greater than 9% loss of body weight) [ ]4) Significant symptoms or findings; examples include: [ ]A. Altered mental status [ ]B. Cardiac abnormality (eg, arrhythmia, conduction disturbance) [ ]C. Malignant etiology requiring inpatient treatment [ ]xiii) Phosphorus less than 1 mg/dL (0.32 mmol/L) [ ]xiv) Phosphorus less than 1.5 mg/dL (0.48 mmol/L) with ANY ONE of the following: [ ]1) Patient unresponsive to outpatient and emergency treatment [ ]2) Significant symptoms or findings; examples include: [ ]A. Weakness [ ]B. Altered mental status [ ]C. Breathing difficulty [ ]D. Seizures [ ]E. Rhabdomyolysis [ ]xv) Phosphorus greater than 10 mg/dL (3.2 mmol/L) [ ]xvi) Phosphorus greater than 4.5 mg/dL (1.45 mmol/L) (new) with ANY ONE of the following: [ ]1) Severe medical etiology (eg, crush injury, acute renal failure) [ ]2) Associated hypocalcemia with significant findings; examples include: [ ]A. Neurologic symptoms [ ]B. Altered mental status [ ]C. Muscle spasms [ ]D. Seizures [ ]E. Breathing difficulty [ ]F. Cardiac abnormality (eg, arrhythmia, conduction disturbance) [ ]xvii) Magnesium less than 1 mg/dL (0.41 mmol/L) [ ]xviii) Magnesium less than 1.5 mg/dL (0.62 mmol/L) with ANY ONE of the following: [ ]1) Patient unresponsive to outpatient and emergency treatment [ ]2) Associated hypocalcemia with significant findings; examples include: [ ]A. Altered mental status [ ]B. Muscle spasms [ ]C. Seizures [ ]D. Breathing difficulty [ ]E. Cardiac abnormality (eg, arrhythmia , conduction disturbance) [ ]3) Associated hypokalemia (potassium less than 3 mEq/L (mmol/L)) with risk of arrhythmia [ ]xix) Magnesium greater than 4 mEq/L (2 mmol/L) [ ]xx) Magnesium greater than 2.5 mEq/L (1.25 mmol/L) with significant symptoms or findings; examples include: [ ]1) Weakness [ ]2) Altered mental status [ ]3) Cardiac abnormality (eg, arrhythmia, conduction disturbance) [ ]4) Breathing difficulty [ ]5) Severe medical etiology (eg, renal failure, hypovolemia) [ ]xxi) Uric acid greater than 20 mg/dL (1190 micromoles/L)(76) [ ]xxii) Uric acid greater than 8 mg/dL (476 micromoles/L) with significant symptoms or findings of tumor lysis syndrome; examples include(76): [ ]1) Creatinine greater than 1.5 times upper limit of normal [ ]2) Cardiac abnormality (eg, arrhythmia, conduction disturbance) [ ]3) Seizure [ ]XX. Acute blood loss causing significant abnormality as indicated by ANY ONE of the following(77)(78): [ ]a) Hemoglobin less than 10 g/dL (100 g/L) (not baseline) [ ]b) Hematocrit less than 30% (0.30) (not baseline) [ ]c) Repeat hematocrit decreased more than 2% (0.02) [ ]d) Uncontrolled bleeding [ ]XXI. Severe anemia indicated by ANY ONE of the following(78)(79): [ ]a) Altered mental status [ ]b) Chest pain [ ]c) Exertional dyspnea [ ]d) Syncope [ ]e) Other findings suggesting inadequate perfusion [ ]f) Treatment with transfusion or volume replacement is ineffective at resolving ANY ONE of the following [G]: [ ]i) Tachycardia for age [ ]ii) Orthostatic vital sign changes as indicated by ANY ONE of the following(80): [ ]1) Fall in SBP of 20 mm Hg or more 1 to 3 minutes after patient sits or stands from recumbent position [ ]2) Fall in DBP of 10 mm Hg or more 1 to 3 minutes after patient sits or stands from recumbent position [ ]XXII. High-risk low platelet count as indicated by ANY ONE of the following( 81)(82): [ ]a) Severe or life-threatening bleeding (eg, intracranial, major gastrointestinal, or extensive mucosal bleeding), with any reduced platelet count [ ]b) Platelet count less than 20,000/mm3 (20 x109/L) with any active bleeding [ ]c) Platelet count less than 10,000/mm3 (10 x109/L) with minor purpura or petechiae [ ]d) Platelet count less than 5000/mm3 (5 x109/L) [ ]e) Low platelet count with hemolytic anemia [ ]XXIII. Disseminated intravascular coagulation(77)(83) [ ]XXIV. Severe adverse drug or systemic toxin reaction requiring inpatient treatment; examples include(84)(85): [ ]a) Serotonin syndrome(86) [ ]b) Neuroleptic malignant syndrome(86) [ ]c) Cholinergic syndrome with severe symptoms (eg, bronchorrhea, weakness, mental status changes, seizures) [ ]d) Sympathetic syndrome with severe symptoms (eg, seizures, mental status changes, cardiac dysrhythmias) [ ]e) Anticholinergic syndrome [ ]XXV. Severe pain requiring acute inpatient management as indicated by ALL of the following (87)(88)(89): [ ]a) Continuous or frequent (eg, every 2 to 4 hours) parenteral analgesics required [H] [ ]b) Rapid improvement expected from treatment or acute intervention (eg, surgery, anesthesia procedure) [ ]XXVI.Severe behavioral health issues judged unmanageable at a lower level of care (eg, residential) in a patient who is ANY ONE of the following(91) [ ]a) Acutely suicidal [ ]b) A danger to self (eg, self-mutilating or suicidal behavior) [ ]c) A danger to others (eg, assaultive or homicidal behavior) [ ]d) Incapacitated because of grave disability (eg, inability to provide for self at lower level of care) (92) [ X]XXVII. Inpatient monitoring needed; examples include(1)(3)(87)(93)(94)(95)( 96): [X ]a) Vital signs, neurologic signs, or vascular checks more frequently than every 4 hours [ ]b) Cardiac or respiratory monitoring beyond the scope (eg, over 24 hours) of observation care [ ]c) Pulmonary artery catheter monitoring [ ]d) Suspected compartment syndrome(97) (98) [ ]e) Cerebral bleeding, hydrocephalus, or vasospasm monitoring [ ]f) Increased intracranial pressure or cerebral edema monitoring [ ]g) monitoring [ ]XXVIII. Treatment requiring inpatient care; examples include: [ ]a) IV fluid to replace significant ongoing losses (greater than 3 L/m2 per day)(53) [ ]b) High concentration oxygen (greater than 40%)(33)(99)(100) [ ]c) Frequent respiratory therapy (more frequently than every 4 hours) to maintain airflow rates greater than 60% of baseline(33)(99)(100) [ ]d) Epidural analgesia(87) [ ]e) IV anticoagulation, vasoactive, or antiarrhythmic medication(19 )(23) [ ]f) Acute thrombolytics (generally require 24 hours of observation )(101)(102) [ ]XXIX. Emergency procedures needed; examples include: [ ]a) Emergency inpatient surgery [ ]b) Temporary pacemaker placement(103) [ ]c) Chest tube placement with active evacuation (eg, suction, drainage)(104) [ ]d) Emergent cardioversion(105) [ ]e) Emergent cardiac or vascular procedures (eg, cardiac catheterization, angioplasty) (17)(18) [ ]f) Emergent dialysis access placement and institution(10)(106) [ ]g) Emergent pericardiocentesis(107) [ ]h) Emergent plasmapheresis or leukapheresis(83) [ ]i) Emergent tracheostomy The original [employer] content created by [employer] has been revised. The portions of the content which have been revised are identified through the use of italic text or in bold, and [facility] has neither reviewed nor approved the modified material. All other unmodified content is copyright [employer]. Please see references footnoted in the original [employer] edition 2016 Admission Criteria Met?: Yes JERONIMO BLOUNT Dec 06, 2016 14:34
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
[2016-12-06] MEDS: ACETAMINOPHEN 325 MG TABLET. PO PRN (14:42)
[2016-12-06 15:00] VITALS: BP 156/66
[2016-12-06] MEDS: LINAGLIPTIN 5 MG TABLET PO SCH (17:36)
[2016-12-06] MEDS: amLODIPine BESYLATE 10 MG TABLET PO SCH (17:36)
[2016-12-06] MEDS: LISINOPRIL 20 MG TABLET PO SCH (17:36)
[2016-12-06] MEDS: FUROSEMIDE 80 MG TABLET. PO SCH (17:36)
[2016-12-06] MEDS ORDERED: ALBUTEROL SULFATE 2.5 MG/3 ML NEBU. NEB PRN (17:45)
[2016-12-06 19:00] VITALS: BP 135/42
[2016-12-06] MEDS: IPRATRPIUM/ALBUTEROL 0.5/2.5MG 3 ML NEBU. NEB SCH (20:20)
[2016-12-06] MEDS ORDERED: ATORVASTATIN CALCIUM 20 MG TABLET PO SCH (21:00)
[2016-12-06] MEDS ORDERED: LATANOPROST 0.005% OPHTH SOLUTION 2.5ML BOTTLE. OU SCH (21:00)
[2016-12-06] MEDS ORDERED: INSULIN DETEMIR 300 UNITS/3 ML INSULN.PEN. SQ SCH (21:00)
[2016-12-06] MEDS ORDERED: TAMSULOSIN 0.4 MG CAP.ER.24H. PO SCH (21:00)
[2016-12-06] MEDS: METOPROLOL TART IMMED RELEASE 50 MG TABLET. PO SCH (21:00)
[2016-12-06] MEDS ORDERED: DEXTROSE 50% 25 GM / 50ML DISP.SYRIN. IV PRN (21:30)
[2016-12-06] MEDS: GABAPENTIN 100 MG CAPSULE. PO SCH (21:59)
[2016-12-06] MEDS: INSULIN ASPART 300 UNITS/3 ML INSULN.PEN SQ SCH (22:02)
[2016-12-06 23:00] VITALS: BP 103/65
[2016-12-07] MEDS: IV NORMAL SALINE 1000ML BAG 1,000 ML IV SCH (00:45)
[2016-12-07 03:00] VITALS: BP 142/60
[2016-12-07] MEDS: ACETAMINOPHEN 325 MG TABLET. PO PRN (03:39)
[2016-12-07 05:55] LABS: BASO % 0 % (0-3); EOS % 3 % (0-3); HEMATOCRIT 34.3 % (39.0-53.0); HEMOGLOBIN 11.4 g/dL (13.0-17.5); LYMPH % 17 % (24-48); MEAN CORPUSCULAR HEMOGLOBIN 33 pg (25-35); MEAN CORPUSCULAR HGB CONC 33 g/dL (31-37); MEAN CORPUSCULAR VOLUME 100 fL (79-100); MONO % 16 % (0-9); NEUT % 65 % (31-73); PLATELET COUNT 98 x10^3/uL (140-400); RED BLOOD COUNT 3.44 x10^6/uL (4.30-5.70); WHITE BLOOD COUNT 6.1 x10^3/uL (4.0-11.0)
[2016-12-07 06:13] LABS: CALCIUM 8.2 mg/dL (8.5-10.1); CREATININE 2.4 mg/dL (0.7-1.3); GFR 31.3; POTASSIUM 5.4 mmol/L (3.5-5.1)
[2016-12-07] MEDS: IPRATRPIUM/ALBUTEROL 0.5/2.5MG 3 ML NEBU. NEB SCH ×2 (06:43→11:09)
[2016-12-07 07:00] VITALS: BP 146/62
[2016-12-07] MEDS ORDERED: INSULIN ASPART 300 UNITS/3 ML INSULN.PEN SQ SCH ×2 (07:30→08:00)
[2016-12-07] MEDS: METOPROLOL TART IMMED RELEASE 50 MG TABLET. PO SCH (08:06)
[2016-12-07] MEDS: amLODIPine BESYLATE 10 MG TABLET PO SCH (08:06)
[2016-12-07] MEDS: GABAPENTIN 100 MG CAPSULE. PO SCH (08:06)
[2016-12-07 08:07] VITALS: BP 142/60
[2016-12-07] MEDS: FUROSEMIDE 80 MG TABLET. PO SCH (08:07)
[2016-12-07] MEDS: LINAGLIPTIN 5 MG TABLET PO SCH (08:07)
[2016-12-07] MEDS: LISINOPRIL 20 MG TABLET PO SCH (08:07)
[2016-12-07] MEDS: INSULIN ASPART 300 UNITS/3 ML INSULN.PEN SQ SCH (08:22)
[2016-12-07] MEDS ORDERED: ASPIRIN ENTERIC COATED 81 MG TABLET.DR. PO SCH (09:00)
[2016-12-07] MEDS ORDERED: MELOXICAM 7.5 MG TABLET PO SCH (09:00)
[2016-12-07] MEDS ORDERED: PANTOPRAZOLE 40 MG TABLET.DR. PO SCH (09:00)
--- NOTE | 2016-12-07 20:50 | DS ---
DATE OF DISCHARGE: 12/07/2016 ADMISSION DIAGNOSIS: Hypotension. DISCHARGE DIAGNOSIS: Resolving hypotension. HOSPITAL COURSE: The patient is a pleasant elderly male who was at his social services's office and became hypotensive. He is on numerous medications. He was admitted for fluids. His pressures actually normalized while he was in the ER this morning, he is doing great. We plan to discharge. He is going to see again next week. We also arranged for him to see Urology as he has been having some dysuria and hematuria. He was already scheduled to see somebody. The patient was seen and examined this morning, heart sounds were normal. His lungs were clear. His abdomen was soft and obese. Extremities 1+ edema. We plan to discharge. DISPOSITION: Home. ACTIVITY: As tolerated. DIET: Low sodium. MEDICATIONS: Please see the MRAD. TOTAL TIME ON DISCHARGE: 33 minutes. GISELLA WICK DO DR: JANEL/danielle JOB#: [id number] / [id number]
== END 2016-12-07 11:38 | disposition home or self-care (01) | DRG 314 ==
LOC: ER 09:05 → 6 SOUTH 12:57
PROVIDERS: ADMIT Internal Medicine; ATTEND Internal Medicine
DX: I95.9 Hypotension, unspecified (principal); N17.0 Acute kidney failure with tubular necrosis; I13.0 Hypertensive heart and chronic kidney disease with heart failure and stage 1 through stage 4 chronic kidney disease, or unspecified chronic kidney disease; Z68.41 Body mass index [BMI] 40.0-44.9, adult; E66.9 Obesity, unspecified; R31.9 Hematuria, unspecified; N18.9 Chronic kidney disease, unspecified; E11.22 Type 2 diabetes mellitus with diabetic chronic kidney disease; E11.65 Type 2 diabetes mellitus with hyperglycemia; E78.00 Pure hypercholesterolemia, unspecified; E78.5 Hyperlipidemia, unspecified; I25.10 Atherosclerotic heart disease of native coronary artery without angina pectoris; I50.9 Heart failure, unspecified; J44.9 Chronic obstructive pulmonary disease, unspecified; K21.9 Gastro-esophageal reflux disease without esophagitis; Z82.49 Family history of ischemic heart disease and other diseases of the circulatory system; Z95.5 Presence of coronary angioplasty implant and graft; Z90.49 Acquired absence of other specified parts of digestive tract
CPT/HCPCS: 36415; 70450; 71010; 80048; 80053; 81001; 82962; 83036; 83605; 83735; 83880; 84484; 85027; 85610; 85730; 87040; 87086; 93005; 94640; 94660; 94760; 96374; J1815; J3010; J7030; J7040; J7620; P9612; 99285-25

== ENCOUNTER → 2016-12-13 | Outpatient (CLI) | payer MEDICARE, OTHER ==
[2016-12-07 08:07] VITALS: BP 142/60
== END | disposition home or self-care (01) ==
LOC: PMGWOUND 13:53
PROVIDERS: ATTEND Emergency Medicine Undersea and Hyperbaric Medicine
DX: I87.312 Chronic venous hypertension (idiopathic) with ulcer of left lower extremity (principal); E11.622 Type 2 diabetes mellitus with other skin ulcer; L97.221 Non-pressure chronic ulcer of left calf limited to breakdown of skin; E78.00 Pure hypercholesterolemia, unspecified; J44.9 Chronic obstructive pulmonary disease, unspecified; I25.2 Old myocardial infarction; K21.9 Gastro-esophageal reflux disease without esophagitis; E66.9 Obesity, unspecified; Z68.41 Body mass index [BMI] 40.0-44.9, adult; I13.0 Hypertensive heart and chronic kidney disease with heart failure and stage 1 through stage 4 chronic kidney disease, or unspecified chronic kidney disease; E11.22 Type 2 diabetes mellitus with diabetic chronic kidney disease; N18.9 Chronic kidney disease, unspecified; Z95.0 Presence of cardiac pacemaker; Z87.891 Personal history of nicotine dependence; H54.42 Blindness, left eye, normal vision right eye; Z86.73 Personal history of transient ischemic attack (TIA), and cerebral infarction without residual deficits
CPT/HCPCS: 97597; 97598

== ENCOUNTER → 2016-12-17 | Outpatient (CLI) | payer MEDICARE, OTHER ==
[2016-12-07 08:07] VITALS: BP 142/60
== END | disposition home or self-care (01) ==
LOC: PMGWOUND 11:23
PROVIDERS: ATTEND Emergency Medicine Undersea and Hyperbaric Medicine
DX: I87.312 Chronic venous hypertension (idiopathic) with ulcer of left lower extremity (principal); L97.221 Non-pressure chronic ulcer of left calf limited to breakdown of skin; J44.9 Chronic obstructive pulmonary disease, unspecified; K21.9 Gastro-esophageal reflux disease without esophagitis; E66.9 Obesity, unspecified; Z68.41 Body mass index [BMI] 40.0-44.9, adult; I25.2 Old myocardial infarction; E78.00 Pure hypercholesterolemia, unspecified; E78.5 Hyperlipidemia, unspecified; E11.22 Type 2 diabetes mellitus with diabetic chronic kidney disease; I13.0 Hypertensive heart and chronic kidney disease with heart failure and stage 1 through stage 4 chronic kidney disease, or unspecified chronic kidney disease; N18.9 Chronic kidney disease, unspecified; I50.9 Heart failure, unspecified; M19.90 Unspecified osteoarthritis, unspecified site; I25.10 Atherosclerotic heart disease of native coronary artery without angina pectoris; Z87.891 Personal history of nicotine dependence; H54.42 Blindness, left eye, normal vision right eye; Z86.73 Personal history of transient ischemic attack (TIA), and cerebral infarction without residual deficits; Z95.0 Presence of cardiac pacemaker
CPT/HCPCS: 29581

== ENCOUNTER → 2016-12-20 | Outpatient (CLI) | payer MEDICARE, OTHER ==
[2016-12-07 08:07] VITALS: BP 142/60
== END | disposition home or self-care (01) ==
LOC: PMGWOUND 10:05
PROVIDERS: ATTEND Emergency Medicine Undersea and Hyperbaric Medicine
DX: I87.312 Chronic venous hypertension (idiopathic) with ulcer of left lower extremity (principal); E11.622 Type 2 diabetes mellitus with other skin ulcer; L97.221 Non-pressure chronic ulcer of left calf limited to breakdown of skin; E78.00 Pure hypercholesterolemia, unspecified; J44.9 Chronic obstructive pulmonary disease, unspecified; I25.10 Atherosclerotic heart disease of native coronary artery without angina pectoris; E11.22 Type 2 diabetes mellitus with diabetic chronic kidney disease; I13.0 Hypertensive heart and chronic kidney disease with heart failure and stage 1 through stage 4 chronic kidney disease, or unspecified chronic kidney disease; N18.9 Chronic kidney disease, unspecified; I50.9 Heart failure, unspecified; E78.5 Hyperlipidemia, unspecified; I25.2 Old myocardial infarction; E11.65 Type 2 diabetes mellitus with hyperglycemia; M19.90 Unspecified osteoarthritis, unspecified site; E66.9 Obesity, unspecified; Z68.41 Body mass index [BMI] 40.0-44.9, adult; Z86.73 Personal history of transient ischemic attack (TIA), and cerebral infarction without residual deficits; Z95.0 Presence of cardiac pacemaker; Z87.891 Personal history of nicotine dependence
CPT/HCPCS: 29581

== ENCOUNTER → 2016-12-25 | Outpatient (CLI) | payer MEDICARE, OTHER ==
[2016-12-07 08:07] VITALS: BP 142/60
== END | disposition home or self-care (01) ==
LOC: PMGWOUND 10:52
PROVIDERS: ATTEND Emergency Medicine Undersea and Hyperbaric Medicine
DX: I87.312 Chronic venous hypertension (idiopathic) with ulcer of left lower extremity (principal); E11.622 Type 2 diabetes mellitus with other skin ulcer; L97.221 Non-pressure chronic ulcer of left calf limited to breakdown of skin; J44.9 Chronic obstructive pulmonary disease, unspecified; E78.5 Hyperlipidemia, unspecified; E66.9 Obesity, unspecified; Z68.41 Body mass index [BMI] 40.0-44.9, adult; I25.2 Old myocardial infarction; E78.00 Pure hypercholesterolemia, unspecified; M19.90 Unspecified osteoarthritis, unspecified site; K21.9 Gastro-esophageal reflux disease without esophagitis; E11.22 Type 2 diabetes mellitus with diabetic chronic kidney disease; I13.0 Hypertensive heart and chronic kidney disease with heart failure and stage 1 through stage 4 chronic kidney disease, or unspecified chronic kidney disease; N18.9 Chronic kidney disease, unspecified; I50.9 Heart failure, unspecified; H54.42 Blindness, left eye, normal vision right eye; Z95.0 Presence of cardiac pacemaker; Z86.73 Personal history of transient ischemic attack (TIA), and cerebral infarction without residual deficits; Z87.891 Personal history of nicotine dependence
CPT/HCPCS: 29581; 97597; 97598

== ENCOUNTER 2017-01-02 13:30 | Emergency (ER) | payer MEDICARE, OTHER ==
[~2017-01-02] VITALS: Ht 175.3 cm; Wt 129.3 kg
[2017-01-02 13:30] VITALS: BP 167/95
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
[2017-01-02 14:19] LABS: BASO # 0.1 x10^3/uL (0.0-0.2); BASO % 1 % (0-3); EOS % 1 % (0-3); HEMOGLOBIN 8.3 g/dL (13.0-17.5); LYMPH # 1.4 x10^3/uL (1.0-4.8); LYMPH % 11 % (24-48); MEAN CORPUSCULAR HEMOGLOBIN 33 pg (25-35); MEAN CORPUSCULAR HGB CONC 33 g/dL (31-37); MEAN CORPUSCULAR VOLUME 100 fL (79-100); MONO % 17 % (0-9); NEUT % 71 % (31-73); PLATELET COUNT 152 x10^3/uL (140-400); RED BLOOD COUNT 2.51 x10^6/uL (4.30-5.70); RED CELL DISTRIBUTION WIDTH 14.5 % (11.5-14.5); WHITE BLOOD COUNT 12.4 x10^3/uL (4.0-11.0)
[2017-01-02 14:24] LABS: CALCIUM 8.5 mg/dL (8.5-10.1); CREATININE 2.5 mg/dL (0.7-1.3); GFR 29.8; POTASSIUM 4.6 mmol/L (3.5-5.1)
[2017-01-02 14:38] LABS: BILIRUBIN,URINE NEGATIVE (NEG); GLUCOSE,URINE NEGATIVE (NEG); NITRITE,URINE NEGATIVE (NEG); PROTEIN,URINE 100 mg/dL (NEG-TRACE); UROBILINOGEN,URINE 0.2 mg/dL (0.2 mg/dL)
[2017-01-02 14:47] LABS: PLT ESTIMATE ADEQUATE (ADEQUATE)
[2017-01-02 15:15] LABS: BACTERIA,URINE FEW /HPF (0-FEW); RBC,URINE TNTC /HPF (0-2); WBC,URINE 20-40 /HPF (0-4)
== END 2017-01-02 15:36 | disposition home or self-care (01) ==
LOC: ER 13:30
DX: R33.9 Retention of urine, unspecified (principal); E78.00 Pure hypercholesterolemia, unspecified; I11.0 Hypertensive heart disease with heart failure; I50.9 Heart failure, unspecified; I25.10 Atherosclerotic heart disease of native coronary artery without angina pectoris; J44.9 Chronic obstructive pulmonary disease, unspecified; K21.9 Gastro-esophageal reflux disease without esophagitis; Z95.0 Presence of cardiac pacemaker; Z90.49 Acquired absence of other specified parts of digestive tract; Z95.5 Presence of coronary angioplasty implant and graft
CPT/HCPCS: 36415; 51702; 80048; 81001; 85007; 85027; 87086; 99284-25

== ENCOUNTER 2017-01-03 17:04 | Inpatient (IN) | payer MEDICARE, OTHER ==
[~2017-01-03] VITALS: Ht 175.3 cm; Wt 131.1 kg
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
[2017-01-03 18:28] LABS: BASO # 0.1 x10^3/uL (0.0-0.2); BASO % 0 % (0-3); EOS % 1 % (0-3); HEMATOCRIT 24.9 % (39.0-53.0); HEMOGLOBIN 8.3 g/dL (13.0-17.5); LYMPH # 1.1 x10^3/uL (1.0-4.8); LYMPH % 7 % (24-48); MEAN CORPUSCULAR HEMOGLOBIN 33 pg (25-35); MEAN CORPUSCULAR HGB CONC 33 g/dL (31-37); MEAN CORPUSCULAR VOLUME 99 fL (79-100); MONO % 14 % (0-9); NEUT % 78 % (31-73); PLATELET COUNT 189 x10^3/uL (140-400); RED BLOOD COUNT 2.52 x10^6/uL (4.30-5.70); RED CELL DISTRIBUTION WIDTH 14.4 % (11.5-14.5); WHITE BLOOD COUNT 15.2 x10^3/uL (4.0-11.0)
[2017-01-03 18:28] LABS: BILIRUBIN,URINE NEGATIVE (NEG); GLUCOSE,URINE NEGATIVE (NEG); NITRITE,URINE NEGATIVE (NEG); PROTEIN,URINE 100 mg/dL (NEG-TRACE); UROBILINOGEN,URINE 0.2 mg/dL (0.2 mg/dL)
[2017-01-03 18:44] LABS: BACTERIA,URINE FEW /HPF (0-FEW); RBC,URINE >40 /HPF (0-2)
[2017-01-03 18:45] LABS: SQUAMOUS EPITHELIAL CELL,UR FEW /LPF
[2017-01-03] MEDS ORDERED: ONDANSETRON PF 4 MG/2 ML VIAL. IV PRN (18:45)
--- NOTE | 2017-01-03 18:58 | EKG ---
[facility] [address] [place] [address] Test Date: 2017-01-03 Test Time: 17:56:50 Pat Name: JAZMIN YOUNG Department: Room: Gender: M Staffing Coordinator: / : 1930 Requested By: CARISSA LUCAS Order Number: [id number] Reading MD: Measurements Intervals [place] Rate: 78 P: 90 [place]: 200 QRS: 22 QRSD: 84 T: 59 QT: 382 QTc: 439 Interpretive Statements SINUS RHYTHM LOW LIMB LEAD VOLTAGE RI6.01 Unconfirmed report No previous ECG available for comparison
[2017-01-03 19:37] LABS: CREATININE 1.7 mg/dL (0.7-1.3); GFR 46.6; POTASSIUM 4.8 mmol/L (3.5-5.1)
[2017-01-03 19:42] LABS: ALBUMIN 2.5 g/dL (3.4-5.0); DIRECT BILIRUBIN 0.1 mg/dL (0.0-0.2); MAGNESIUM 2.1 mg/dL (1.8-2.4); TOTAL BILIRUBIN 0.4 mg/dL (0.2-1.0); TOTAL PROTEIN 6.8 g/dL (6.4-8.2)
[2017-01-03 19:47] LABS: CKMB MASS 1.5 ng/mL (0.0-3.6)
[2017-01-03 20:10] VITALS: BP 145/68
[2017-01-03] MEDS ORDERED: ASPIRIN 325 MG TABLET PO ONE (20:30)
[2017-01-03] MEDS: IV NORMAL SALINE 1000ML BAG 1,000 ML IV SCH (20:54)
--- NOTE | 2017-01-03 22:37 | PDOC1 ---
History and Physical Date of Admission Date of Admission DATE: 01/03/17 TIME: 22:37 Identification/Chief Complaint Chief Complaint weakness Problems: Source Source: Chart review, Patient History of Present Illness History of Present Illness Mr. Stokes, is a 86 year old [place] admit with generalized weakness. He fell last night, and has been very weak. he as DC 2 days ago from [facility] after a TURP performed. he has been home with a hartman, has not been doing well. [facility] wanted him to [facility] for rehab and he declined, and he has this evening changed his mind that Sub-acute rehab would be a good idea. He fell last night between his bed and the wall, stuck for hours. FOund by home health, hartman bag was almost overflowing, no pain, resting comfortably, was very cold in the ER, and now appears sweaty on his chest, but reports feeling much better Past Medical History Cardiovascular: CAD, CHF, HTN, Hyperlipidemia, Other Pulmonary: COPD, Other CENTRAL NERVOUS SYSTEM: Dementia, Vertigo GI: GERD, Other Heme/Onc: Anemia NOS Hepatobiliary: No pertinent hx Psych: No pertinent hx Musculoskeletal: low back pain, Osteoarthritis Rheumatologic: No pertinent hx Infectious disease: No pertinent hx Renal/: Chronic renal insuff, Benign prostatic enlarg. Endocrine: Diabetes Past Surgical History Past Surgical History: Pacemaker, Cholecystectomy, Other Family History Family History: Cancer, Heart Disease Social History Smoke: No ALCOHOL: none Drugs: None Current Problem List Problem List Problems Medical Problems: (1) Weakness Status: Acute Problems: Current Medications Current Medications Current Medications Ondansetron HCl (Zofran) 4 mg PRN Q8HRS PRN IV NAUSEA/VOMITING; Start 01/03/17 at 18:45; Stop 01/04/17 at 18:44 Sodium Chloride 1,000 ml @ 125 mls/hr Q8H IV Last administered on 01/03/17 20 :54; Start 01/03/17 at 19:30 Aspirin (Stephanie Aspirin) 325 mg 1X ONCE PO Last administered on 01/03/17 20:58 ; Start 01/03/17 at 20:30; Stop 01/03/17 at 20:31; Status DC Active Scripts Active [place] 5-325 Tablet (Acetaminophen/Hydrocodone Bitart) 1 Each Tablet 1 Tab PO PRN Q6HRS PRN Reported Furosemide 80 Mg Tablet 80 Mg PO DAILY Meloxicam 15 Mg Tablet 15 Mg PO DAILY Combivent Respimat Inhal (Ipratropium/Albuterol Sulfate) 4 Gm Aer.w.adap 2 Inh IH QID Gabapentin 100 Mg Capsule 100 Mg PO TID Januvia (Sitagliptin Phosphate) 50 Mg Tablet 25 Mg PO DAILY Metoprolol Tartrate 100 Mg Tablet 1 Tab PO BID Niaspan (Niacin) 500 Mg Tab.er.24h 1,000 Mg PO HS Travatan Z (Travoprost) 5 Ml Drops 1 Drop EACHEYE QHS Humalog (Insulin Lispro) 100 Unit/1 Ml Insuln.pen 20 Unit SQ TIDAC Lantus (Insulin Glargine,Hum.rec.anlog) 100 Unit/1 Ml Vial 35 Unit SQ HS Primidone 50 Mg Tablet 200 Mg PO HS Pantoprazole Sodium 40 Mg Tablet.dr 1 Tab PO DAILY Lisinopril 20 Mg Tablet 1 Tab PO DAILY Lipitor (Atorvastatin Calcium) 20 Mg Tablet 20 Mg PO HS Azopt (Brinzolamide) 10 Ml Drops.susp 10 Ml OP BID PRN Flomax (Tamsulosin Hcl) 0.4 Mg Cap.er.24h 0.4 Mg PO HS Zetia (Ezetimibe) 10 Mg Tablet 10 Mg PO DAILY Ecotrin (Aspirin) 81 Mg Tablet.dr 81 Mg PO Allergies Allergies: Coded Allergies: No Known Drug Allergies (Unverified , 08/02/13) Physical Exam General: Alert, Oriented X3, Cooperative, No acute distress HEENT: PERRLA Heart: no gallops, no murmurs Abdomen: Normal bowel sounds, Soft Rectal Exam: not examined Extremities: No clubbing, Normal pulses, Other (1+ LE edema) Skin: Other (left lateral leg wound with bandage) Neuro: Normal speech, Sensation intact, Cranial nerves 3-12 NL Psych/Mental Status: Mental status NL Vitals Vitals Vital Signs Date Time Temp Pulse Resp B/P (MAP) Pulse Ox O2 Delivery O2 Flow Rate FiO2 01/03/17 20:10 98.9 77 22 145/68 (93) 98 Room Air 98.9 Labs Labs Laboratory Tests Test 01/03/17 18:10 01/03/17 18:15 01/03/17 19:05 01/03/17 20:22 White Blood Count 15.2 x10^3/uL (4.0-11.0) Red Blood Count 2.52 x10^6/uL (4.30-5.70) Hemoglobin 8.3 g/dL (13.0-17.5) Hematocrit 24.9 % (39.0-53.0) Mean Corpuscular Volume 99 fL (79-100) Mean Corpuscular Hemoglobin 33 pg (25-35) Mean Corpuscular Hemoglobin Concent 33 g/dL (31-37) Red Cell Distribution Width 14.4 % (11.5-14.5) Platelet Count 189 x10^3/uL (140-400) Neutrophils (%) (Auto) 78 % (31-73) Lymphocytes (%) (Auto) 7 % (24-48) Monocytes (%) (Auto) 14 % (0-9) Eosinophils (%) (Auto) 1 % (0-3) Basophils (%) (Auto) 0 % (0-3) Neutrophils # (Auto) 11.8 x10^3uL (1.8-7.7) Lymphocytes # (Auto) 1.1 x10^3/uL (1.0-4.8) Monocytes # (Auto) 2.2 x10^3/uL (0.0-1.1) Eosinophils # (Auto) 0.1 x10^3/uL (0.0-0.7) Basophils # (Auto) 0.1 x10^3/uL (0.0-0.2) Urine Collection Type Void Urine Color Yellow Urine Clarity Cloudy Urine pH 6.0 Urine Specific [place] 1.015 Urine Protein 100 mg/dL (NEG-TRACE) Urine Glucose (UA) Negative mg/dL (NEG) Urine Ketones (Stick) Negative mg/dL (NEG) Urine Blood Large (NEG) Urine Nitrite Negative (NEG) Urine Bilirubin Negative (NEG) Urine Urobilinogen Dipstick 0.2 mg/dL (0.2 mg/dL) Urine Leukocyte Esterase Moderate (NEG) Urine RBC >40 /HPF (0-2) Urine WBC 11-20 /HPF (0-4) Urine Squamous Epithelial Cells Few /LPF Urine Bacteria Few /HPF (0-FEW) Urine Hyaline Casts Few /HPF Urine Mucus Slight /LPF Sodium Level 136 mmol/L (136-145) Potassium Level 4.8 mmol/L (3.5-5.1) Chloride Level 100 mmol/L (98-107) Carbon Dioxide Level 28 mmol/L (21-32) Anion Gap 8 (6-14) Blood Urea Nitrogen 43 mg/dL (8-26) Creatinine 1.7 mg/dL (0.7-1.3) Estimated GFR (Cockcroft-Gault) 46.6 Glucose Level 243 mg/dL (70-99) Calcium Level 9.0 mg/dL (8.5-10.1) Magnesium Level 2.1 mg/dL (1.8-2.4) Total Bilirubin 0.4 mg/dL (0.2-1.0) Direct Bilirubin 0.1 mg/dL (0.0-0.2) Aspartate Amino Transf (AST/SGOT) 153 U/L (15-37) Alanine Aminotransferase (ALT/SGPT) 231 U/L (16-63) Alkaline Phosphatase 126 U/L (46-116) Creatine Kinase 202 U/L (39-308) Creatine Kinase MB (Mass) 1.5 ng/mL (0.0-3.6) Creatine Kinase MB Relative Index 0.7 % (0-4) Troponin I Quantitative 0.070 ng/mL (0.000-0.055) PG-Xve-W-Type Natriuretic Peptide 7307 pg/mL (0-449) Total Protein 6.8 g/dL (6.4-8.2) Albumin 2.5 g/dL (3.4-5.0) Thyroid Stimulating Hormone (TSH) 0.932 uIU/mL (0.358-3.74) Glucose (Fingerstick) 232 mg/dL (70-99) Laboratory Tests Test 01/03/17 18:10 01/03/17 18:15 01/03/17 19:05 01/03/17 20:22 White Blood Count 15.2 x10^3/uL (4.0-11.0) Red Blood Count 2.52 x10^6/uL (4.30-5.70) Hemoglobin 8.3 g/dL (13.0-17.5) Hematocrit 24.9 % (39.0-53.0) Mean Corpuscular Volume 99 fL (79-100) Mean Corpuscular Hemoglobin 33 pg (25-35) Mean Corpuscular Hemoglobin Concent 33 g/dL (31-37) Red Cell Distribution Width 14.4 % (11.5-14.5) Platelet Count 189 x10^3/uL (140-400) Neutrophils (%) (Auto) 78 % (31-73) Lymphocytes (%) (Auto) 7 % (24-48) Monocytes (%) (Auto) 14 % (0-9) Eosinophils (%) (Auto) 1 % (0-3) Basophils (%) (Auto) 0 % (0-3) Neutrophils # (Auto) 11.8 x10^3uL (1.8-7.7) Lymphocytes # (Auto) 1.1 x10^3/uL (1.0-4.8) Monocytes # (Auto) 2.2 x10^3/uL (0.0-1.1) Eosinophils # (Auto) 0.1 x10^3/uL (0.0-0.7) Basophils # (Auto) 0.1 x10^3/uL (0.0-0.2) Urine Collection Type Void Urine Color Yellow Urine Clarity Cloudy Urine pH 6.0 Urine Specific [place] 1.015 Urine Protein 100 mg/dL (NEG-TRACE) Urine Glucose (UA) Negative mg/dL (NEG) Urine Ketones (Stick) Negative mg/dL (NEG) Urine Blood Large (NEG) Urine Nitrite Negative (NEG) Urine Bilirubin Negative (NEG) Urine Urobilinogen Dipstick 0.2 mg/dL (0.2 mg/dL) Urine Leukocyte Esterase Moderate (NEG) Urine RBC >40 /HPF (0-2) Urine WBC 11-20 /HPF (0-4) Urine Squamous Epithelial Cells Few /LPF Urine Bacteria Few /HPF (0-FEW) Urine Hyaline Casts Few /HPF Urine Mucus Slight /LPF Sodium Level 136 mmol/L (136-145) Potassium Level 4.8 mmol/L (3.5-5.1) Chloride Level 100 mmol/L (98-107) Carbon Dioxide Level 28 mmol/L (21-32) Anion Gap 8 (6-14) Blood Urea Nitrogen 43 mg/dL (8-26) Creatinine 1.7 mg/dL (0.7-1.3) Estimated GFR (Cockcroft-Gault) 46.6 Glucose Level 243 mg/dL (70-99) Calcium Level 9.0 mg/dL (8.5-10.1) Magnesium Level 2.1 mg/dL (1.8-2.4) Total Bilirubin 0.4 mg/dL (0.2-1.0) Direct Bilirubin 0.1 mg/dL (0.0-0.2) Aspartate Amino Transf (AST/SGOT) 153 U/L (15-37) Alanine Aminotransferase (ALT/SGPT) 231 U/L (16-63) Alkaline Phosphatase 126 U/L (46-116) Creatine Kinase 202 U/L (39-308) Creatine Kinase MB (Mass) 1.5 ng/mL (0.0-3.6) Creatine Kinase MB Relative Index 0.7 % (0-4) Troponin I Quantitative 0.070 ng/mL (0.000-0.055) SV-Qje-Z-Type Natriuretic Peptide 7307 pg/mL (0-449) Total Protein 6.8 g/dL (6.4-8.2) Albumin 2.5 g/dL (3.4-5.0) Thyroid Stimulating Hormone (TSH) 0.932 uIU/mL (0.358-3.74) Glucose (Fingerstick) 232 mg/dL (70-99) VTE Prophylaxis Ordered VTE Prophylaxis Devices: Contraindicated VTE Pharmacological Prophylaxi: Yes Assessment/Plan Assessment/Plan weakness, debility falls, need PT and OT and SNU UTI, rocephin, cx pending, leukocytosis only, tachypnea could be due to mult med problems morbid obesity, BMI 41 htn Dm2, home meds plus SSI BPH, s/p hartman with urinary retention and indwelling cath leg wound, consult RN service, start vit c and zinc CHF, CAD, stable anemia of CKD DONNA SANDOVAL MD Jan 03, 2017 22:37
[2017-01-03 23:05] VITALS: BP 132/50
[2017-01-04 03:05] VITALS: BP_SYST 131; BP_SYST 143; BP_DIAS 68
[2017-01-04] MEDS: IV NORMAL SALINE 1000ML BAG 1,000 ML IV SCH ×3 (04:46→17:52)
[2017-01-04 07:08] VITALS: BP 133/62
[2017-01-04 07:22] LABS: BASO # 0.1 x10^3/uL (0.0-0.2); BASO % 1 % (0-3); EOS % 2 % (0-3); HEMATOCRIT 25.5 % (39.0-53.0); HEMOGLOBIN 8.3 g/dL (13.0-17.5); LYMPH # 1.4 x10^3/uL (1.0-4.8); LYMPH % 12 % (24-48); MEAN CORPUSCULAR HEMOGLOBIN 33 pg (25-35); MEAN CORPUSCULAR HGB CONC 32 g/dL (31-37); MEAN CORPUSCULAR VOLUME 102 fL (79-100); MONO % 16 % (0-9); NEUT % 70 % (31-73); PLATELET COUNT 204 x10^3/uL (140-400); RED BLOOD COUNT 2.51 x10^6/uL (4.30-5.70); RED CELL DISTRIBUTION WIDTH 14.1 % (11.5-14.5); WHITE BLOOD COUNT 12.2 x10^3/uL (4.0-11.0)
[2017-01-04 07:29] LABS: CREATININE 1.8 mg/dL (0.7-1.3); GFR 43.6; POTASSIUM 4.5 mmol/L (3.5-5.1)
[2017-01-04 07:33] LABS: ALBUMIN 2.3 g/dL (3.4-5.0); DIRECT BILIRUBIN 0.1 mg/dL (0.0-0.2); TOTAL BILIRUBIN 0.3 mg/dL (0.2-1.0); TOTAL PROTEIN 7.3 g/dL (6.4-8.2)
--- NOTE | 2017-01-04 08:19 | RAD ---
Indication weakness. Fatigue. Leg swelling. Protocol study. A single view of the chest was obtained and is compared to an examination almost one month earlier. Heart size is unchanged. There is no gross congestive heart failure. Defibrillating and bipolar cardiac pacing device is noted. Acute finding in the chest or significant change compared to the previous exam is not seen. IMPRESSION: No acute or focal process. No significant change
[2017-01-04] MEDS: INSULIN ASPART 300 UNITS/3 ML INSULN.PEN SQ SCH ×4 (08:35→16:30)
--- NOTE | 2017-01-04 08:47 | RAD ---
Indication pain. No history of injury. AP oblique and lateral views of the right elbow were obtained. A spur is noted off the olecranon. Significant joint fluid is not seen. Acute bony finding is not apparent.
[2017-01-04] MEDS: DORZOLAMIDE 2% OPHTH SOLUTION 10ML BOTTLE. OU SCH ×2 (09:00→21:00)
[2017-01-04] MEDS ORDERED: NON FORMULARY ITEM (Ipratropium/Albuterol Sulfate (Combivent Respimat Inhal) 2 INH) IH SCH (09:00)
[2017-01-04] MEDS: IPRATRPIUM/ALBUTEROL 0.5/2.5MG 3 ML NEBU. NEB SCH ×4 (09:22→19:51)
[2017-01-04] MEDS: ASPIRIN ENTERIC COATED 81 MG TABLET.DR. PO SCH (09:34)
[2017-01-04] MEDS: EZETIMIBE 10 MG TABLET. PO SCH (09:34)
[2017-01-04] MEDS: GABAPENTIN 100 MG CAPSULE. PO SCH ×3 (09:34→21:48)
[2017-01-04] MEDS: ZINC SULFATE 220 MG CAPSULE. PO SCH (09:38)
[2017-01-04] MEDS: ASCORBIC ACID 500 MG TABLET PO SCH (09:39)
[2017-01-04] MEDS: PANTOPRAZOLE 40 MG TABLET.DR. PO SCH (09:39)
[2017-01-04] MEDS: METOPROLOL TART IMMED RELEASE 50 MG TABLET. PO SCH ×2 (09:39→21:49)
[2017-01-04] MEDS: FUROSEMIDE 80 MG TABLET. PO SCH (09:39)
[2017-01-04] MEDS: LINAGLIPTIN 5 MG TABLET PO SCH (09:39)
[2017-01-04 11:02] VITALS: BP 133/69
[2017-01-04] MEDS: HYDROcodone/APAP 5/325MG 1 TAB TABLET PO PRN (13:03)
--- NOTE | 2017-01-04 13:17 | PDOC ---
PROGRESS NOTES Chief Complaint Chief Complaint debility s/p falls ASSESSMENT AND PLAN: 1. Gen weakness, falls: OT/PT eval for SNF placement 2. UTI (vs colonization from hartman): on empiric ceftriax, awaiting cultures 3. BPH: recent TURP with indwelling Hartman. F/U with urologist on O/P basis 4. DM2: poorly controlled with decreased home doses. pt insists on his dosing. will adjust 5. HTN: well controlled on home regimen 6. CAD: no acute issues 7. CKD: appears stable. monitor 8. Anemia: prob multifactorial. keira macrcytosis, r/o B12/folate deficiency 9. Leg wound: wound care consult, dressing 10. Morbid obesity, BMI 41 History of Present Illness History of Present Illness pain in feet and R elbow (from falls). has "good days and bad days" Vitals Vitals Vital Signs Date Time Temp Pulse Resp B/P (MAP) Pulse Ox O2 Delivery O2 Flow Rate FiO2 01/04/17 13:03 96 Room Air 01/04/17 11:02 98.8 72 17 133/69 (90) 98.8 01/04/17 03:05 Physical Exam General: Alert, Oriented X3, Cooperative, No acute distress Heart: Regular rate Lungs: Clear Abdomen: Normal bowel sounds, Soft Extremities: No clubbing, Other (1+ LE edema) Skin: Other (left lateral leg wound with bandage) Labs LABS Laboratory Tests Test 01/03/17 18:10 01/03/17 18:15 01/03/17 19:05 01/03/17 20:22 White Blood Count 15.2 x10^3/uL (4.0-11.0) Red Blood Count 2.52 x10^6/uL (4.30-5.70) Hemoglobin 8.3 g/dL (13.0-17.5) Hematocrit 24.9 % (39.0-53.0) Mean Corpuscular Volume 99 fL (79-100) Mean Corpuscular Hemoglobin 33 pg (25-35) Mean Corpuscular Hemoglobin Concent 33 g/dL (31-37) Red Cell Distribution Width 14.4 % (11.5-14.5) Platelet Count 189 x10^3/uL (140-400) Neutrophils (%) (Auto) 78 % (31-73) Lymphocytes (%) (Auto) 7 % (24-48) Monocytes (%) (Auto) 14 % (0-9) Eosinophils (%) (Auto) 1 % (0-3) Basophils (%) (Auto) 0 % (0-3) Neutrophils # (Auto) 11.8 x10^3uL (1.8-7.7) Lymphocytes # (Auto) 1.1 x10^3/uL (1.0-4.8) Monocytes # (Auto) 2.2 x10^3/uL (0.0-1.1) Eosinophils # (Auto) 0.1 x10^3/uL (0.0-0.7) Basophils # (Auto) 0.1 x10^3/uL (0.0-0.2) Urine Collection Type Void Urine Color Yellow Urine Clarity Cloudy Urine pH 6.0 Urine Specific [place] 1.015 Urine Protein 100 mg/dL (NEG-TRACE) Urine Glucose (UA) Negative mg/dL (NEG) Urine Ketones (Stick) Negative mg/dL (NEG) Urine Blood Large (NEG) Urine Nitrite Negative (NEG) Urine Bilirubin Negative (NEG) Urine Urobilinogen Dipstick 0.2 mg/dL (0.2 mg/dL) Urine Leukocyte Esterase Moderate (NEG) Urine RBC >40 /HPF (0-2) Urine WBC 11-20 /HPF (0-4) Urine Squamous Epithelial Cells Few /LPF Urine Bacteria Few /HPF (0-FEW) Urine Hyaline Casts Few /HPF Urine Mucus Slight /LPF Sodium Level 136 mmol/L (136-145) Potassium Level 4.8 mmol/L (3.5-5.1) Chloride Level 100 mmol/L (98-107) Carbon Dioxide Level 28 mmol/L (21-32) Anion Gap 8 (6-14) Blood Urea Nitrogen 43 mg/dL (8-26) Creatinine 1.7 mg/dL (0.7-1.3) Estimated GFR (Cockcroft-Gault) 46.6 Glucose Level 243 mg/dL (70-99) Calcium Level 9.0 mg/dL (8.5-10.1) Magnesium Level 2.1 mg/dL (1.8-2.4) Total Bilirubin 0.4 mg/dL (0.2-1.0) Direct Bilirubin 0.1 mg/dL (0.0-0.2) Aspartate Amino Transf (AST/SGOT) 153 U/L (15-37) Alanine Aminotransferase (ALT/SGPT) 231 U/L (16-63) Alkaline Phosphatase 126 U/L (46-116) Creatine Kinase 202 U/L (39-308) Creatine Kinase MB (Mass) 1.5 ng/mL (0.0-3.6) Creatine Kinase MB Relative Index 0.7 % (0-4) Troponin I Quantitative 0.070 ng/mL (0.000-0.055) BP-Sbc-V-Type Natriuretic Peptide 7307 pg/mL (0-449) Total Protein 6.8 g/dL (6.4-8.2) Albumin 2.5 g/dL (3.4-5.0) Thyroid Stimulating Hormone (TSH) 0.932 uIU/mL (0.358-3.74) Glucose (Fingerstick) 232 mg/dL (70-99) Test 01/04/17 01:00 01/04/17 06:56 01/04/17 07:00 Troponin I Quantitative 0.061 ng/mL (0.000-0.055) 0.037 ng/mL (0.000-0.055) Glucose (Fingerstick) 200 mg/dL (70-99) White Blood Count 12.2 x10^3/uL (4.0-11.0) Red Blood Count 2.51 x10^6/uL (4.30-5.70) Hemoglobin 8.3 g/dL (13.0-17.5) Hematocrit 25.5 % (39.0-53.0) Mean Corpuscular Volume 102 fL (79-100) Mean Corpuscular Hemoglobin 33 pg (25-35) Mean Corpuscular Hemoglobin Concent 32 g/dL (31-37) Red Cell Distribution Width 14.1 % (11.5-14.5) Platelet Count 204 x10^3/uL (140-400) Neutrophils (%) (Auto) 70 % (31-73) Lymphocytes (%) (Auto) 12 % (24-48) Monocytes (%) (Auto) 16 % (0-9) Eosinophils (%) (Auto) 2 % (0-3) Basophils (%) (Auto) 1 % (0-3) Neutrophils # (Auto) 8.6 x10^3uL (1.8-7.7) Lymphocytes # (Auto) 1.4 x10^3/uL (1.0-4.8) Monocytes # (Auto) 1.9 x10^3/uL (0.0-1.1) Eosinophils # (Auto) 0.2 x10^3/uL (0.0-0.7) Basophils # (Auto) 0.1 x10^3/uL (0.0-0.2) Sodium Level 139 mmol/L (136-145) Potassium Level 4.5 mmol/L (3.5-5.1) Chloride Level 103 mmol/L (98-107) Carbon Dioxide Level 27 mmol/L (21-32) Anion Gap 9 (6-14) Blood Urea Nitrogen 43 mg/dL (8-26) Creatinine 1.8 mg/dL (0.7-1.3) Estimated GFR (Cockcroft-Gault) 43.6 Glucose Level 206 mg/dL (70-99) Calcium Level 9.0 mg/dL (8.5-10.1) Total Bilirubin 0.3 mg/dL (0.2-1.0) Direct Bilirubin 0.1 mg/dL (0.0-0.2) Aspartate Amino Transf (AST/SGOT) 128 U/L (15-37) Alanine Aminotransferase (ALT/SGPT) 214 U/L (16-63) Alkaline Phosphatase 117 U/L (46-116) Total Protein 7.3 g/dL (6.4-8.2) Albumin 2.3 g/dL (3.4-5.0) KATE BOYER MD Jan 04, 2017 13:17
[2017-01-04 15:01] VITALS: BP 122/76
[2017-01-04 19:52] VITALS: BP 123/63
[2017-01-04] MEDS ORDERED: INSULIN DETEMIR 300 UNITS/3 ML INSULN.PEN. SQ SCH (21:00)
[2017-01-04] MEDS: INSULIN DETEMIR 300 UNITS/3 ML INSULN.PEN. SQ SCH (21:00)
[2017-01-04] MEDS: TAMSULOSIN 0.4 MG CAP.ER.24H. PO SCH (21:47)
[2017-01-04] MEDS: ATORVASTATIN CALCIUM 20 MG TABLET PO SCH (21:48)
[2017-01-04] MEDS: NIACIN ER 500 MG TABLET.ER PO SCH (21:48)
[2017-01-04] MEDS: PRIMIDONE 50 MG TABLET PO SCH (21:48)
[2017-01-04] MEDS: LATANOPROST 0.005% OPHTH SOLUTION 2.5ML BOTTLE. OU SCH (21:56)
[2017-01-04 22:41] VITALS: BP 132/58
[2017-01-05] MEDS: IV NORMAL SALINE 1000ML BAG 1,000 ML IV SCH ×2 (01:55→12:14)
[2017-01-05 03:13] VITALS: BP 135/70
--- NOTE | 2017-01-05 05:55 | ACF ---
Admission Forms Criteria GENERAL ADMISSION CRITERIA (Place 'X' for any and all applicable criteria): Admission is indicated for ANY ONE of the following: [ ]I. Hemodynamic instability as indicated by ANY ONE of the following(1)(2) (3)(4)(5): [ ]a) Vital sign abnormality not readily corrected by appropriate treatment within 12 to 24 hours indicated by ANY ONE of the following: [ ]i) Hypotension [ ]ii) Symptomatic Tachycardia unresponsive to treatment (eg , analgesia, fluids, sedation as indicated) [ ]iii) Orthostatic vital sign changes unresponsive to treatment (eg, fluids) [ ]b) Vital sign abnormality that is severe indicated by ANY ONE of the following: [ ]i) Inadequate perfusion indicated by ANY ONE of the following: [ ]1) Lactic acidosis (greater than 2 mmol/L) [ ]2) New abnormal capillary refill (greater than 3 seconds) [ ]3) Other metabolic acidosis (arterial pH less than 7.35) not otherwise explained [ ]4) Reduced urine output [ ]5) Altered mental status [ ]6) Myocardial Ischemia [ ]v) Mean arterial pressure[A] less than 60 mm Hg [ ]vi) Mean arterial pressure[A] less than 70 mm Hg after 30 minutes of appropriate treatment (eg, fluid resuscitation) [ ]vii) IV inotropic or vasopressor medication required to maintain adequate blood pressure or perfusion [ ]viii) Sustained heart rate greater than 120 beats per minute in adult or child 6 years or older[B]] [ ]II. Hypertension requiring inpatient treatment as indicated by ANY ONE of the following(6)(7)(8): [ ]a) SBP greater than 220 mm Hg or DBP greater than 120 mm Hg despite treatment [ ]b) SBP greater than 140 mm Hg or DBP greater than 100 mm Hg with evidence of acute end organ damage as indicated by ANY ONE of the following: [ ]i) Encephalopathy [ ]ii) Acute renal failure as indicated by new onset of ANY ONE of the following(9)(10)(11)(12)(13): [ ]1) A 3-fold rise in serum creatinine from baseline [ ]2) Serum creatinine greater than 4 mg/dL ( 354 micromoles/L) with acute rise greater than 0.5 mg/dL (44.2 micromoles/L) [ ]3) Reduction of more than 75% in estimated glomerular filtration rate from baseline [ ]4) Estimated glomerular filtration rate less than 35 mL/min/1.73m2 (0.59 mL/sec/1.73m2) in child up to 18 years of age [ ]5) Cessation of urine output indicated by ALL of the following: [ ]A. Adequate volume status [ ]B. Inadequate urine output as indicated by ANY ONE of the following: [ ]a. Urine output less than 0.3 mL/kg/hr for 24 hours [ ]b. Anuria (urine output less than 0.1 mL/kg/hr) for 12 hours [ ]iii) Aortic dissection [ ]iv) Myocardial ischemia [ ]v) Left ventricular heart failure [ ]vi) Retinal hemorrhage [ ]vii) Other significant finding [ ]c) Hypertension in child requiring inpatient treatment as indicated by ALL of the following(14)(15)(16): [ ]i) Outpatient treatment not effective, not available, or not appropriate [ ]ii) SBP or DBP greater than 95th percentile for age [ ]iii) Evidence of acute end organ damage as indicated by ANY ONE of the following: [ ]1) Altered mental status [ ]2) Acute renal failure as indicated by new onset of ANY ONE of the following(9)(10)(11)(12)(13): [ ]A. A 3-fold rise in serum creatinine from baseline [ ]B. Serum creatinine greater than 4 mg/dL (354 micromoles/L) with acute rise greater than 0.5 mg/dL (44.2 micromoles/L) [ ]C. Reduction of more than 75% in estimated glomerular filtration rate from baseline [ ]D. Estimated glomerular filtration rate less than 35 mL/min/1.73m2 (0.59 mL/sec/1.73m2)in child up to 18 years of age [ ]E. Cessation of urine output indicated by ALL of the following: [ ]a. Adequate volume status [ ]b. Inadequate urine output as indicated by ANY ONE of the following: [ ]1) Urine output less than 0.3 mL/kg/hr for 24 hours [ ]2) Anuria (urine output less than 0.1 mL/kg/hr) for 12 hours [ ]3) Severe headache [ ]4) Visual disturbance [ ]5) Retinal hemorrhage [ ]6) Other significant finding [ ]III. Acute cardiac or peripheral ischemia as indicated by ANY ONE of the following: [ ]a) Acute coronary syndrome(17)(18) [ ]b) Acute peripheral ischemia (eg, pulseless, cool, mottled, or cyanotic extremity)(19) [ ]IV. Cardiac arrhythmias or findings of immediate concern indicated by ANY ONE of the following(20)(21): [ ]a) Heart rhythms that are inherently dangerous or unstable indicated by ANY ONE of the following(22)(23)(24): [ ]i) Resuscitated ventricular fibrillation or cardiac arrest [ ]ii) Ventricular escape rhythm [ ]iii) Sustained ventricular tachycardia (30 seconds or more of ventricular rhythm at greater than 100 beats per minute) [ ]iv) Nonsustained ventricular tachycardia and ANY ONE of the following: [ ]1) Suspected cardiac ischemia as cause or consequence of ventricular tachycardia [ ]2) In setting of acute myocarditis [ ]b) Unstable cardiac conduction defects indicated by ANY ONE of the following(24)(25)(26): [ ]i) Type II second-degree atrioventricular block [ ]ii) Third-degree atrioventricular block [ ]iii) New-onset left bundle branch block with suspected myocardial ischemia [ ]c) Any heart rhythm and ANY ONE of the following(22)(23)(27)(28)( 29): [ ] i) Continuous long-term ECG monitoring needed (eg, initiation of drug requiring monitoring for more than 24 hours) [ ] ii) Patient has automatic implanted cardioverter defibrillator that is repeatedly firing, malfunctioning, or in need of immediate adjustment of settings beyond the scope of ambulatory or observation care. [ ]d) Heart rhythms of concern due to ANY ONE of the following: [ ]i) Hypotension [ ]ii) Respiratory distress [ ]iii) Association with other significant symptoms (eg, bradycardia with syncope or ongoing dizziness, supraventricular tachycardia with chest pain) (27)(28) (30) [ ] V. Severe heart failure as indicated by ANY ONE of the following ( 31)(32): [ ]a) Respiratory distress [ ]b) Hypotension [ ]c) Anasarca (refractory to outpatient therapy) [ ]d) Cardiac arrhythmias of immediate concern [ ]e) Myocardial ischemia [ ]. Respiratory abnormalities, including ANY ONE of the following(33)(34) (35)(36): [ ]a) Respiratory rate greater than 30 breaths per minute unresponsive to treatment [A] [ ]b) New saturation of arterial oxygen less than 90% [ ]c) New partial pressure of carbon dioxide greater than 44 mm Hg ( 5.9 kPa) [ ]d) Supplemental oxygen or respiratory treatments needed that are new or not performable at other levels of care [ ]e) New-onset cyanosis [ ]f) Inability to protect airway [ ]g) Chronic lung disease with severe deterioration (not responsive to emergency and observation care treatment as appropriate) as indicated by ANY ONE of the following(34)(36 ): [ ]i) SaO2 5% below baseline in patient with chronic hypoxemia [ ]ii) New requirement for supplemental oxygen to keep SaO2 at baseline or acceptable level [ ]iii) Required supplemental oxygen performable only in acute inpatient setting [ ]iv) Severe airflow or ventilation abnormalities [ ]v) Previously mobile patient unable to walk between rooms [ ]vi Inability to eat or sleep due to dyspnea [ ]vii) Rapid rate of exacerbation onset [ ]viii) Altered mental status ]VII. Severe airflow or ventilation abnormalities (not responsive to emergency and observation care treatment as appropriate) as indicated by ANY ONE of the following(33)(34)(35)(37): [ ]a) PCO2 greater than 42 mm Hg (5.6 kPa) and pH less than 7.35 (new ) [ ]b) Documented PCO2 increased more than 5 mm Hg (0.7 kPa) from disease baseline [ ]c) Airflow measurements [B] less than 60% of previous best or predicted (eg, peak expiratory flow rate less than 300 L/minute) despite intensive emergent treatment [C] [ ]d) Required respiratory treatments that are performable only in acute inpatient setting [ ]VIII. Impending or actual respiratory arrest ( Also use Respiratory Failure GRG for severe respiratory disease and long-term mechanical ventilation patients) [ ]IX. Neurologic abnormalities, including ANY ONE of the following: [ ]a) New findings that suggest ANY ONE of the following: [ ]i) SWITCH OPERATOR infection(38) [ ]ii) Cerebral bleeding, ischemia, or vasospasm(39)(40) [ ]iii) Increased intracranial pressure, hydrocephalus, or cerebral edema(41)(42)(43) [ ]iv) Spinal cord injury(44) [ ]b) Uncontrolled seizures(45) [ ]c) New-onset coma (eg, Leidy coma scale score less than 9) or unexplained abnormal mental status (eg, Leidy coma scale score less than 14) [D](41)(46)(47) [ ]X. New-onset severe neurologic findings requiring inpatient care; examples include(42)(48)(49): [ ]a) Papilledema [ ]b) Cerebral edema [ ]c) Mass effect on CT scan [ ]XI. Suspected acute intra-abdominal process with peritoneal signs, abdominal mass, or similar findings (50)(51)(52) [ ]XII. Severe physiologic disorder remaining after emergency or observation level care (as appropriate) as indicated by ANY ONE of the following (53): [ ]a) Significant dehydration [ ]b) Diabetic ketoacidosis [ ]c) Hyperglycemic hyperosmolar state (eg, osmolality greater than 320 mOsm/kg (mmol/kg) [ ]d) Hypoglycemia [ ]e) Other (new) acid-base disorder with pH less than 7.35 or greater than 7.5(54) [ ]f) Thyroid storm (55) [ ]g) Myxedema coma (55) [ ]XIII. Abdominal abnormalities with ANY ONE of the following(56)(57): [ ]a) Absent bowel sounds with complete ileus [ ]b) Signs of intestinal obstruction or peritonitis [E] [ ]c) Nausea and vomiting that cannot be controlled with outpatient or observation care [ ]XIV. Acute renal failure as indicated by new onset of ANY ONE of the following(9)(10)(11)(12)(13): [ ]a) A 3-fold rise in serum creatinine from baseline [ ]b) Serum creatinine greater than 4 mg/dL (354 micromoles/L) with acute rise greater than 0.5 mg/dL (44.2 micromoles/L) [ ]c) Reduction of more than 75% in estimated glomerular filtration rate from baseline [ ]d) Estimated glomerular filtration rate less than 35 mL/min/ 1.73m2 (0.59 mL/sec/1.73m2) in child up to 18 years of age [ ]e) Cessation of urine output indicated by ALL of the following: [ ]i) Adequate volume status [ ]ii) Inadequate urine output as indicated by ANY ONE of the following: [ ]1) Urine output less than 0.3 mL/kg/hr for 24 hours [ ]2) Anuria (urine output less than 0.1 mL/kg/hr) for 12 hours [ ]XV. Significant uremic complications as indicated by ANY ONE of the following(58)(59)(60): [ ]a) Outpatient therapy is ineffective or not feasible for ANY ONE of the following: [ ]i) Severe heart failure [ ]ii) Severehypertension [ ]iii) Pleural effusion [ ]iv) Pericarditis or pericardial effusion [ ]b) Cardiac arrhythmias of immediate concern [ ]c) Intractable nausea or vomiting [ ]d) Recurrent seizures [ ]e) Encephalopathy [ ]f) Bleeding abnormalities (eg, platelet dysfunction) with active (eg, gastrointestinal) bleeding [ ]g) Dialysis indicated before long-term access or ambulatory arrangements can be made [ ]h) Significant metabolic or electrolyte abnormalities (eg, severe acidosis or hyperkalemia) [ ]XVI. High fever or other high-risk infection situation as indicated by ANY ONE of the following(61)(62)(63)(64): [ ]a) Outpatient and observation care antimicrobial treatment unavailable, not effective, or not appropriate [ ]b) Documented bacteremia [ ]c) Temperature greater than 40.5 degrees C (104.9 degrees F) ( oral) [ ]d) Temperature greater than 39.5 degrees C (103.1 degrees F) ( oral) or less than 36 degrees C (96.8 degrees F) (rectal) that does not respond to e treatment and observation care [ ] XVII. Temperature less than 95 degrees F (35 degrees C)(rectal)(65) [ ] XVIII. Severe nutritional abnormalities as indicated by ALL of the following (66)(67): [ ]a) Inability to tolerate or establish sufficient oral or other enteral nutrition in outpatient setting [ ]b) Parenteral nutrition regimen need that must be implemented on inpatient basis [ ] XIX. Severe electrolyte abnormalities indicated by ALL of the following(68) (69)(70): [ ]a) Electrolytes and associated findings are not as expected for patient baseline or acceptable treatment effects. [ ]b) Severe abnormalities indicated by ANY ONE of the following: [ ]i) Sodium less than 130 mEq/L (mmol/L) (new) [ ]ii)Sodium less than 135 mEq/L (mmol/L) with ANY ONE of the following: [ ]1) Uncorrectable (to near normal or chronic baseline) after trial of outpatient and emergency treatment [ ]2) Altered mental status [ ]3) Seizures [ ]4) Severe medical etiology requiring inpatient management (eg, heart failure, hypovolemia) [ ]iii) Sodium greater than 155 mEq/L (mmol/L) [ ]iv) Sodium greater than 150 mEq/L (mmol/L) with ANY ONE of the following: [ ]1) Uncorrectable (to near normal or chronic baseline) with outpatient and emergency treatment [ ]2) Altered mental status [ ]3) Seizures [ ]4) Severe medical etiology (eg, hypovolemia, diabetes insipidus) [ ]v) Potassium less than 2.5 mEq/L (mmol/L) despite outpatient and emergency treatment [ ]vi) Potassium less than 3 mEq/L (mmol/L) with ANY ONE of the following: [ ]1) Weakness [ ]2) Cardiac abnormality (eg, arrhythmia, conduction disturbance) [ ]3) Cardiac ischemia [ ]4) Ileus [ ]5) Ongoing medical cause requiring inpatient management (eg, acute renal wasting or SIADH) [ ]6) Other severe symptoms [ ]vii) Potassium greater than 6.5 mEq/L (mmol/L) [ ]viii) Potassium greater than 5 mEq/L (mmol/L) with ANY ONE of the following: [ ]1) Uncorrectable (to near normal or chronic baseline) with outpatient and emergency treatment [ ]2) Severe ECG findings [F] [ ]3) Acute worsening of renal failure (creatinine greater than 2.5 mg/dL (221 micromoles/L) or significant elevation for age and size) [ ]4) Severe weakness [ ]5) Severe medical etiology (eg, hemolysis, infection, drug overdose) [ ]ix) Calcium less than 7 mg/dL (1.75 mmol/L) despite outpatient and emergency treatment (72) [ ]x) Calcium less than 8 mg/dL (2 mmol/L) with significant symptoms or findings; examples include(72): [ ]1) Altered mental status [ ]2) Muscle spasms [ ]3) Seizures [ ]4) Breathing difficulty [ ]5) Cardiac abnormality (eg, arrhythmia or conduction disturbance) [ ]xi) Calcium greater than 14 mg/dL (3.5 mmol/L)(72) [ ]xii) Calcium greater than 12 mg/dL (3 mmol/L) with ANY ONE of the following(72): [ ]1) Uncorrectable (to near normal or chronic baseline) with outpatient and emergency treatment [ ]2) Significant dehydration or hypovolemia as indicated by ALL of the following(70)(73)(74): [ ]A. Not resolved with initial treatments [ ]B. Clinically significant dehydration as indicated by ANY ONE of the following: [ ]a. Vomiting refractory to outpatient treatment (ie, precluding oral rehydration) [ ]b. Inability to drink [ ]c. Hypernatremia or other electrolyte abnormality unable to be corrected with outpatient and emergency treatment [ ]d. Failure to remain hydrated with outpatient therapy [ ]e. Reduced urine output [ ]f. Hypotension [ ]g. Serious cause for dehydration requiring acute hospitalization (eg, bowel obstruction, increased intracranial pressure, infectious cause) [ ]h. Child with ANY ONE of the following(75): [ ]1) Severe abdominal tenderness [ ]2) Adequate care not available at home [ ]3) Severe dehydration ( greater than 9% loss of body weight) [ ]4) Significant symptoms or findings; examples include: [ ]A. Altered mental status [ ]B. Cardiac abnormality (eg, arrhythmia, conduction disturbance) [ ]C. Malignant etiology requiring inpatient treatment [ ]xiii) Phosphorus less than 1 mg/dL (0.32 mmol/L) [ ]xiv) Phosphorus less than 1.5 mg/dL (0.48 mmol/L) with ANY ONE of the following: [ ]1) Patient unresponsive to outpatient and emergency treatment [ ]2) Significant symptoms or findings; examples include: [ ]A. Weakness [ ]B. Altered mental status [ ]C. Breathing difficulty [ ]D. Seizures [ ]E. Rhabdomyolysis [ ]xv) Phosphorus greater than 10 mg/dL (3.2 mmol/L) [ ]xvi) Phosphorus greater than 4.5 mg/dL (1.45 mmol/L) (new) with ANY ONE of the following: [ ]1) Severe medical etiology (eg, crush injury, acute renal failure) [ ]2) Associated hypocalcemia with significant findings; examples include: [ ]A. Neurologic symptoms [ ]B. Altered mental status [ ]C. Muscle spasms [ ]D. Seizures [ ]E. Breathing difficulty [ ]F. Cardiac abnormality (eg, arrhythmia, conduction disturbance) [ ]xvii) Magnesium less than 1 mg/dL (0.41 mmol/L) [ ]xviii) Magnesium less than 1.5 mg/dL (0.62 mmol/L) with ANY ONE of the following: [ ]1) Patient unresponsive to outpatient and emergency treatment [ ]2) Associated hypocalcemia with significant findings; examples include: [ ]A. Altered mental status [ ]B. Muscle spasms [ ]C. Seizures [ ]D. Breathing difficulty [ ]E. Cardiac abnormality (eg, arrhythmia , conduction disturbance) [ ]3) Associated hypokalemia (potassium less than 3 mEq/L (mmol/L)) with risk of arrhythmia [ ]xix) Magnesium greater than 4 mEq/L (2 mmol/L) [ ]xx) Magnesium greater than 2.5 mEq/L (1.25 mmol/L) with significant symptoms or findings; examples include: [ ]1) Weakness [ ]2) Altered mental status [ ]3) Cardiac abnormality (eg, arrhythmia, conduction disturbance) [ ]4) Breathing difficulty [ ]5) Severe medical etiology (eg, renal failure, hypovolemia) [ ]xxi) Uric acid greater than 20 mg/dL (1190 micromoles/L)(76) [ ]xxii) Uric acid greater than 8 mg/dL (476 micromoles/L) with significant symptoms or findings of tumor lysis syndrome; examples include(76): [ ]1) Creatinine greater than 1.5 times upper limit of normal [ ]2) Cardiac abnormality (eg, arrhythmia, conduction disturbance) [ ]3) Seizure [ ]XX. Acute blood loss causing significant abnormality as indicated by ANY ONE of the following(77)(78): [ ]a) Hemoglobin less than 10 g/dL (100 g/L) (not baseline) [ ]b) Hematocrit less than 30% (0.30) (not baseline) [ ]c) Repeat hematocrit decreased more than 2% (0.02) [ ]d) Uncontrolled bleeding [ ]XXI. Severe anemia indicated by ANY ONE of the following(78)(79): [ ]a) Altered mental status [ ]b) Chest pain [ ]c) Exertional dyspnea [ ]d) Syncope [ ]e) Other findings suggesting inadequate perfusion [ ]f) Treatment with transfusion or volume replacement is ineffective at resolving ANY ONE of the following [G]: [ ]i) Tachycardia for age [ ]ii) Orthostatic vital sign changes as indicated by ANY ONE of the following(80): [ ]1) Fall in SBP of 20 mm Hg or more 1 to 3 minutes after patient sits or stands from recumbent position [ ]2) Fall in DBP of 10 mm Hg or more 1 to 3 minutes after patient sits or stands from recumbent position [ ]XXII. High-risk low platelet count as indicated by ANY ONE of the following( 81)(82): [ ]a) Severe or life-threatening bleeding (eg, intracranial, major gastrointestinal, or extensive mucosal bleeding), with any reduced platelet count [ ]b) Platelet count less than 20,000/mm3 (20 x109/L) with any active bleeding [ ]c) Platelet count less than 10,000/mm3 (10 x109/L) with minor purpura or petechiae [ ]d) Platelet count less than 5000/mm3 (5 x109/L) [ ]e) Low platelet count with hemolytic anemia [ ]XXIII. Disseminated intravascular coagulation(77)(83) [ ]XXIV. Severe adverse drug or systemic toxin reaction requiring inpatient treatment; examples include(84)(85): [ ]a) Serotonin syndrome(86) [ ]b) Neuroleptic malignant syndrome(86) [ ]c) Cholinergic syndrome with severe symptoms (eg, bronchorrhea, weakness, mental status changes, seizures) [ ]d) Sympathetic syndrome with severe symptoms (eg, seizures, mental status changes, cardiac dysrhythmias) [ ]e) Anticholinergic syndrome [ ]XXV. Severe pain requiring acute inpatient management as indicated by ALL of the following (87)(88)(89): [ ]a) Continuous or frequent (eg, every 2 to 4 hours) parenteral analgesics required [H] [ ]b) Rapid improvement expected from treatment or acute intervention (eg, surgery, anesthesia procedure) [ ]XXVI.Severe behavioral health issues judged unmanageable at a lower level of care (eg, residential) in a patient who is ANY ONE of the following(91) [ ]a) Acutely suicidal [ ]b) A danger to self (eg, self-mutilating or suicidal behavior) [ ]c) A danger to others (eg, assaultive or homicidal behavior) [ ]d) Incapacitated because of grave disability (eg, inability to provide for self at lower level of care) (92) [X]XXVII. Inpatient monitoring needed; examples include(1)(3)(87)(93)(94)(95)(96 ): [X]a) Vital signs, neurologic signs, or vascular checks more frequently than every 4 hours [ ]b) Cardiac or respiratory monitoring beyond the scope (eg, over 24 hours) of observation care [ ]c) Pulmonary artery catheter monitoring [ ]d) Suspected compartment syndrome(97) (98) [ ]e) Cerebral bleeding, hydrocephalus, or vasospasm monitoring [ ]f) Increased intracranial pressure or cerebral edema monitoring [ ]g) monitoring [ ]XXVIII. Treatment requiring inpatient care; examples include: [ ]a) IV fluid to replace significant ongoing losses (greater than 3 L/m2 per day)(53) [ ]b) High concentration oxygen (greater than 40%)(33)(99)(100) [ ]c) Frequent respiratory therapy (more frequently than every 4 hours) to maintain airflow rates greater than 60% of baseline(33)(99)(100) [ ]d) Epidural analgesia(87) [ ]e) IV anticoagulation, vasoactive, or antiarrhythmic medication(19 )(23) [ ]f) Acute thrombolytics (generally require 24 hours of observation )(101)(102) [ ]XXIX. Emergency procedures needed; examples include: [ ]a) Emergency inpatient surgery [ ]b) Temporary pacemaker placement(103) [ ]c) Chest tube placement with active evacuation (eg, suction, drainage)(104) [ ]d) Emergent cardioversion(105) [ ]e) Emergent cardiac or vascular procedures (eg, cardiac catheterization, angioplasty) (17)(18) [ ]f) Emergent dialysis access placement and institution(10)(106) [ ]g) Emergent pericardiocentesis(107) [ ]h) Emergent plasmapheresis or leukapheresis(83) [ ]i) Emergent tracheostomy The original [employer] content created by [employer] has been revised. The portions of the content which have been revised are identified through the use of italic text or in bold, and [facility] has neither reviewed nor approved the modified material. All other unmodified content is copyright [employer]. Please see references footnoted in the original [employer] edition 2016 Admission Criteria Met?: Yes GE GANDARA Jan 05, 2017 05:55
[2017-01-05 06:51] LABS: % SAT IRON 41 % (15-34); IRON,SERUM 46 ug/dL (65-175)
[2017-01-05 07:00] VITALS: BP 143/69
[2017-01-05 07:34] LABS: CREATININE 1.8 mg/dL (0.7-1.3); GFR 43.6
[2017-01-05] MEDS: IPRATRPIUM/ALBUTEROL 0.5/2.5MG 3 ML NEBU. NEB SCH ×4 (07:40→20:00)
[2017-01-05] MEDS: PANTOPRAZOLE 40 MG TABLET.DR. PO SCH (08:17)
[2017-01-05] MEDS: ASPIRIN ENTERIC COATED 81 MG TABLET.DR. PO SCH (08:17)
[2017-01-05] MEDS: LINAGLIPTIN 5 MG TABLET PO SCH (08:18)
[2017-01-05] MEDS: METOPROLOL TART IMMED RELEASE 50 MG TABLET. PO SCH ×2 (08:18→21:44)
[2017-01-05] MEDS: FUROSEMIDE 80 MG TABLET. PO SCH (08:18)
[2017-01-05] MEDS: EZETIMIBE 10 MG TABLET. PO SCH (08:18)
[2017-01-05] MEDS: GABAPENTIN 100 MG CAPSULE. PO SCH ×3 (08:18→21:43)
[2017-01-05] MEDS: ZINC SULFATE 220 MG CAPSULE. PO SCH (08:19)
[2017-01-05] MEDS: ASCORBIC ACID 500 MG TABLET PO SCH (08:19)
[2017-01-05] MEDS: HYDROcodone/APAP 5/325MG 1 TAB TABLET PO PRN ×2 (08:20→21:44)
[2017-01-05] MEDS: INSULIN ASPART 300 UNITS/3 ML INSULN.PEN SQ SCH ×3 (08:27→16:30)
[2017-01-05] MEDS: DORZOLAMIDE 2% OPHTH SOLUTION 10ML BOTTLE. OU SCH ×2 (08:27→21:43)
[2017-01-05 08:41] LABS: HEMATOCRIT 27.6 % (39.0-53.0); HEMOGLOBIN 8.5 g/dL (13.0-17.5); RED BLOOD COUNT 2.64 x10^6/uL (4.30-5.70); RED CELL DISTRIBUTION WIDTH 14.9 % (11.5-14.5); WHITE BLOOD COUNT 11.8 x10^3/uL (4.0-11.0)
[2017-01-05 08:57] LABS: RETIC COUNT 1.8 % (0.5-2.5)
[2017-01-05 11:00] VITALS: BP 134/77
--- NOTE | 2017-01-05 13:35 | PDOC ---
PROGRESS NOTES Chief Complaint Chief Complaint debility s/p falls ASSESSMENT AND PLAN: 1. Gen weakness, falls: OT/PT eval for SNF placement. OOB to chair 2. UTI (vs colonization from [facility]): on empiric ceftriax, culture prelim NGTD 3. BPH: recent TURP with indwelling Hartman. F/U with urologist on O/P basis 4. DM2: on home levemir/humalog regimen. good control. cint ISS 5. HTN: well controlled on home regimen 6. CAD: no acute issues 7. CKD: appears stable. monitor 8. Anemia: iron studies c/w severe inflammation. also macrcytosis, r/o B12/ folate deficiency 9. Leg wound: wound care consult, dressing 10. Morbid obesity, BMI 41 History of Present Illness History of Present Illness feels ok. c/o sore throat, not keeping him from eating Vitals Vitals Vital Signs Date Time Temp Pulse Resp B/P (MAP) Pulse Ox O2 Delivery O2 Flow Rate FiO2 01/05/17 11:33 98 Room Air 01/05/17 11:00 98.6 72 18 134/77 (96) 98.6 Physical Exam General: Alert, Oriented X3, Cooperative, No acute distress Heart: Regular rate Lungs: Clear Abdomen: Normal bowel sounds, Soft Extremities: No clubbing, Other (1+ LE edema) Skin: Other (left lateral leg wound with bandage) Labs LABS Laboratory Tests Test 01/04/17 16:46 01/04/17 20:59 01/05/17 05:48 01/05/17 07:43 Glucose (Fingerstick) 109 mg/dL (70-99) 90 mg/dL (70-99) 142 mg/dL (70-99) White Blood Count 11.8 x10^3/uL (4.0-11.0) Red Blood Count 2.64 x10^6/uL (4.30-5.70) Hemoglobin 8.5 g/dL (13.0-17.5) Hematocrit 27.6 % (39.0-53.0) Mean Corpuscular Volume 105 fL (79-100) Mean Corpuscular Hemoglobin 32 pg (25-35) Mean Corpuscular Hemoglobin Concent 31 g/dL (31-37) Red Cell Distribution Width 14.9 % (11.5-14.5) Platelet Count 229 x10^3/uL (140-400) Reticulocyte Count (auto) 1.8 % (0.5-2.5) Sodium Level 141 mmol/L (136-145) Potassium Level 5.0 mmol/L (3.5-5.1) Chloride Level 106 mmol/L (98-107) Carbon Dioxide Level 24 mmol/L (21-32) Anion Gap 11 (6-14) Blood Urea Nitrogen 42 mg/dL (8-26) Creatinine 1.8 mg/dL (0.7-1.3) Estimated GFR (Cockcroft-Gault) 43.6 Glucose Level 151 mg/dL (70-99) Calcium Level 8.0 mg/dL (8.5-10.1) Iron Level 46 ug/dL (65-175) Total Iron Binding Capacity 113 ug/dL (250-450) Iron Saturation 41 % (15-34) Ferritin 1218 ng/mL (26-388) Test 01/05/17 11:49 Glucose (Fingerstick) 305 mg/dL (70-99) KATE BOYER MD Jan 05, 2017 13:35
[2017-01-05 14:56] VITALS: BP 143/53
[2017-01-05] MEDS: BENZOCAINE/MENTHOL LOZENGE. PO PRN ×2 (15:25→22:03)
[2017-01-05] MEDS ORDERED: DEXTROSE 50% 25 GM / 50ML DISP.SYRIN. IV ONE (17:30)
[2017-01-05 19:35] VITALS: BP 125/53
[2017-01-05] MEDS: INSULIN DETEMIR 300 UNITS/3 ML INSULN.PEN. SQ SCH (21:00)
[2017-01-05] MEDS: LATANOPROST 0.005% OPHTH SOLUTION 2.5ML BOTTLE. OU SCH (21:43)
[2017-01-05] MEDS: TAMSULOSIN 0.4 MG CAP.ER.24H. PO SCH (21:43)
[2017-01-05] MEDS: NIACIN ER 500 MG TABLET.ER PO SCH (21:43)
[2017-01-05] MEDS: ATORVASTATIN CALCIUM 20 MG TABLET PO SCH (21:43)
[2017-01-05] MEDS: PRIMIDONE 50 MG TABLET PO SCH (21:44)
[2017-01-05 23:21] VITALS: BP 132/61
[2017-01-06 02:53] VITALS: BP 140/67
[2017-01-06] MEDS: PANTOPRAZOLE 40 MG TABLET.DR. PO SCH (05:59)
[2017-01-06] MEDS: HYDROcodone/APAP 5/325MG 1 TAB TABLET PO PRN ×2 (05:59→20:47)
[2017-01-06 07:00] VITALS: BP 147/68
[2017-01-06] MEDS: IPRATRPIUM/ALBUTEROL 0.5/2.5MG 3 ML NEBU. NEB SCH ×4 (07:58→19:46)
[2017-01-06] MEDS: ASCORBIC ACID 500 MG TABLET PO SCH (08:30)
[2017-01-06] MEDS: LINAGLIPTIN 5 MG TABLET PO SCH (08:30)
[2017-01-06] MEDS: FUROSEMIDE 80 MG TABLET. PO SCH (08:30)
[2017-01-06] MEDS: EZETIMIBE 10 MG TABLET. PO SCH (08:31)
[2017-01-06] MEDS: ZINC SULFATE 220 MG CAPSULE. PO SCH (08:31)
[2017-01-06] MEDS: ASPIRIN ENTERIC COATED 81 MG TABLET.DR. PO SCH (08:31)
[2017-01-06] MEDS: BENZOCAINE/MENTHOL LOZENGE. PO PRN (08:31)
[2017-01-06] MEDS: METOPROLOL TART IMMED RELEASE 50 MG TABLET. PO SCH ×2 (08:31→20:45)
[2017-01-06] MEDS: GABAPENTIN 100 MG CAPSULE. PO SCH ×3 (08:31→20:46)
[2017-01-06] MEDS: INSULIN ASPART 300 UNITS/3 ML INSULN.PEN SQ SCH ×3 (08:32→16:30)
[2017-01-06] MEDS: DORZOLAMIDE 2% OPHTH SOLUTION 10ML BOTTLE. OU SCH ×2 (08:34→20:44)
--- NOTE | 2017-01-06 09:13 | PDOC ---
PROGRESS NOTES Chief Complaint Chief Complaint debility s/p falls ASSESSMENT AND PLAN: 1. Gen weakness, falls: OT/PT eval for SNF placement. OOB to chair 2. ?UTI (vs colonization from [facility]): on empiric ceftriax, culture neg. stop Abx 3. BPH: recent TURP with indwelling Hartman. F/U with urologist on O/P basis 4. DM2: on home levemir/humalog regimen. good control. cont ISS 5. HTN: well controlled on home regimen. episode of hypoglycemia O/N, now resolved. monitor 6. CAD: no acute issues 7. CKD: appears stable. monitor 8. Anemia: iron studies c/w severe inflammation. also macrcytosis, r/o B12/ folate deficiency 9. Leg wound: wound care consult, dressing 10. Morbid obesity, BMI 41 History of Present Illness History of Present Illness feels good today, sore throat resolved Vitals Vitals Vital Signs Date Time Temp Pulse Resp B/P (MAP) Pulse Ox O2 Delivery O2 Flow Rate FiO2 01/06/17 08:31 66 147/68 01/06/17 07:59 93 Room Air 01/06/17 07:00 99.3 18 99.3 Physical Exam General: Alert, Oriented X3, Cooperative, No acute distress Heart: Regular rate Lungs: Clear Abdomen: Normal bowel sounds, Soft Extremities: No clubbing, Other (1+ LE edema) Skin: Other (left lateral leg wound with bandage) Labs LABS Laboratory Tests Test 01/05/17 11:49 01/05/17 17:12 01/05/17 17:42 01/05/17 20:09 Glucose (Fingerstick) 305 mg/dL (70-99) 39 mg/dL (70-99) 115 mg/dL (70-99) 164 mg/dL (70-99) Test 01/06/17 07:34 Glucose (Fingerstick) 185 mg/dL (70-99) KATE BOYER MD Jan 06, 2017 09:13
[2017-01-06 11:00] VITALS: BP 119/54
[2017-01-06 14:55] VITALS: BP 118/46
[2017-01-06 19:25] VITALS: BP 114/54
[2017-01-06] MEDS: LATANOPROST 0.005% OPHTH SOLUTION 2.5ML BOTTLE. OU SCH (20:44)
[2017-01-06] MEDS: ATORVASTATIN CALCIUM 20 MG TABLET PO SCH (20:44)
[2017-01-06] MEDS: TAMSULOSIN 0.4 MG CAP.ER.24H. PO SCH (20:44)
[2017-01-06] MEDS: NIACIN ER 500 MG TABLET.ER PO SCH (20:46)
[2017-01-06] MEDS: PRIMIDONE 50 MG TABLET PO SCH (20:47)
[2017-01-06] MEDS: INSULIN DETEMIR 300 UNITS/3 ML INSULN.PEN. SQ SCH (20:50)
[2017-01-06 23:25] VITALS: BP 102/63
[2017-01-07 03:30] VITALS: BP 129/70
[2017-01-07 07:05] VITALS: BP 108/39
[2017-01-07] MEDS: IPRATRPIUM/ALBUTEROL 0.5/2.5MG 3 ML NEBU. NEB SCH ×4 (07:24→20:13)
[2017-01-07] MEDS: DORZOLAMIDE 2% OPHTH SOLUTION 10ML BOTTLE. OU SCH ×2 (09:00→21:00)
[2017-01-07 09:10] LABS: FOLATE 6.36 ng/ml (3.2-20.0)
[2017-01-07] MEDS: LINAGLIPTIN 5 MG TABLET PO SCH (09:34)
[2017-01-07] MEDS: ASPIRIN ENTERIC COATED 81 MG TABLET.DR. PO SCH (09:34)
[2017-01-07] MEDS: ZINC SULFATE 220 MG CAPSULE. PO SCH (09:34)
[2017-01-07] MEDS: PANTOPRAZOLE 40 MG TABLET.DR. PO SCH (09:35)
[2017-01-07] MEDS: EZETIMIBE 10 MG TABLET. PO SCH (09:35)
[2017-01-07] MEDS: HYDROcodone/APAP 5/325MG 1 TAB TABLET PO PRN (09:35)
[2017-01-07] MEDS: ASCORBIC ACID 500 MG TABLET PO SCH (09:36)
[2017-01-07] MEDS: FUROSEMIDE 80 MG TABLET. PO SCH (09:36)
[2017-01-07] MEDS: GABAPENTIN 100 MG CAPSULE. PO SCH ×3 (09:36→21:08)
[2017-01-07] MEDS: METOPROLOL TART IMMED RELEASE 50 MG TABLET. PO SCH ×2 (09:37→21:00)
[2017-01-07] MEDS: INSULIN ASPART 300 UNITS/3 ML INSULN.PEN SQ SCH ×3 (09:39→16:30)
[2017-01-07 11:03] VITALS: BP 122/51
[2017-01-07 15:01] VITALS: BP 104/42
--- NOTE | 2017-01-07 17:12 | PDOC ---
PROGRESS NOTES Chief Complaint Chief Complaint debility s/p falls ASSESSMENT AND PLAN: 1. Gen weakness, falls: awaiting SNF placement. OOB to chair 2. ?UTI (vs colonization from [facility]): on empiric ceftriax, culture neg. stop Abx 3. BPH: recent TURP with indwelling Hartman. F/U with urologist on O/P basis 4. DM2: on home levemir/humalog regimen. good control. cont ISS 5. HTN: well controlled on home regimen. episode of hypoglycemia O/N, now resolved. monitor 6. CAD: no acute issues 7. CKD: appears stable. monitor 8. Anemia: iron studies c/w severe inflammation. also macrocytosis, r/o B12/ folate deficiency 9. Leg wound: wound care consult, dressing 10. Morbid obesity, BMI 41 History of Present Illness History of Present Illness sitting in chair, no c/o Vitals Vitals Vital Signs Date Time Temp Pulse Resp B/P (MAP) Pulse Ox O2 Delivery O2 Flow Rate FiO2 01/07/17 16:33 Room Air 01/07/17 15:01 98.5 70 19 104/42 (62) 96 98.5 Physical Exam General: Alert, Oriented X3, Cooperative, No acute distress Heart: Regular rate Lungs: Clear Abdomen: Normal bowel sounds, Soft Extremities: No clubbing, Other (1+ LE edema) Skin: Other (left lateral leg wound with bandage) Labs LABS Laboratory Tests Test 01/06/17 20:44 01/07/17 04:45 01/07/17 06:54 01/07/17 11:23 Glucose (Fingerstick) 200 mg/dL (70-99) 176 mg/dL (70-99) 190 mg/dL (70-99) 222 mg/dL (70-99) Test 01/07/17 16:40 Glucose (Fingerstick) 158 mg/dL (70-99) KATE BOYER MD Jan 07, 2017 17:12
[2017-01-07] MEDS: BENZOCAINE/MENTHOL LOZENGE. PO PRN (18:22)
[2017-01-07 19:30] VITALS: BP 104/63
[2017-01-07] MEDS: LATANOPROST 0.005% OPHTH SOLUTION 2.5ML BOTTLE. OU SCH (21:08)
[2017-01-07] MEDS: PRIMIDONE 50 MG TABLET PO SCH (21:09)
[2017-01-07] MEDS: ATORVASTATIN CALCIUM 20 MG TABLET PO SCH (21:09)
[2017-01-07] MEDS: TAMSULOSIN 0.4 MG CAP.ER.24H. PO SCH (21:09)
[2017-01-07] MEDS: NIACIN ER 500 MG TABLET.ER PO SCH (21:09)
[2017-01-07] MEDS: INSULIN DETEMIR 300 UNITS/3 ML INSULN.PEN. SQ SCH (21:11)
[2017-01-07 23:30] VITALS: BP 125/52
[2017-01-08 03:30] VITALS: BP 122/46
[2017-01-08 07:05] VITALS: BP 111/47
[2017-01-08] MEDS: IPRATRPIUM/ALBUTEROL 0.5/2.5MG 3 ML NEBU. NEB SCH ×3 (07:28→15:37)
[2017-01-08] MEDS: INSULIN ASPART 300 UNITS/3 ML INSULN.PEN SQ SCH ×4 (07:30→16:30)
[2017-01-08] MEDS: DORZOLAMIDE 2% OPHTH SOLUTION 10ML BOTTLE. OU SCH (09:00)
[2017-01-08] MEDS: FUROSEMIDE 80 MG TABLET. PO SCH (09:13)
[2017-01-08] MEDS: ZINC SULFATE 220 MG CAPSULE. PO SCH (09:13)
[2017-01-08] MEDS: PANTOPRAZOLE 40 MG TABLET.DR. PO SCH (09:13)
[2017-01-08] MEDS: GABAPENTIN 100 MG CAPSULE. PO SCH ×2 (09:13→14:15)
[2017-01-08] MEDS: LINAGLIPTIN 5 MG TABLET PO SCH (09:13)
[2017-01-08] MEDS: EZETIMIBE 10 MG TABLET. PO SCH (09:13)
[2017-01-08] MEDS: METOPROLOL TART IMMED RELEASE 50 MG TABLET. PO SCH (09:14)
[2017-01-08] MEDS: ASCORBIC ACID 500 MG TABLET PO SCH (09:14)
[2017-01-08] MEDS: ASPIRIN ENTERIC COATED 81 MG TABLET.DR. PO SCH (09:14)
[2017-01-08 11:00] VITALS: BP 112/55
[2017-01-08] MEDS ORDERED: METHYL SALICYLATE/MENTHOL TOPICAL OINTMENT 29GM TUBE. TP PRN (14:00)
[2017-01-08 15:03] VITALS: BP 117/37
--- NOTE | 2017-01-10 00:22 | DS ---
DATE OF DISCHARGE: 01/08/2017 CHIEF COMPLAINT: Failure to thrive. HOSPITAL COURSE: The patient is an 86-year-old gentleman who had undergone a TURP procedure by his urologist at [facility] about 10 days prior to presentation. He had declined rehab placement at that time and had gone home. There, however, he became weaker and weaker and finally decided to come to the Emergency Room to get admitted for rehabilitation. His medical issues were fairly well controlled and required minor medication adjustments, including diabetes, hypertension, anemia. He had a wound on his left lower leg for which wound care consult was obtained and dressing changes were instituted. As he had presented on Saturday afternoon, he had to wait until the following week for placement, which was accomplished on 01/08/2017. PHYSICAL EXAMINATION: VITAL SIGNS: Blood pressure of 104/42, heart rate of 70, respiratory rate at 19. He is afebrile. GENERAL: This is an obese 86-year-old gentleman, alert and oriented, no acute distress. LUNGS: Clear. HEART: Regular rate and rhythm. ABDOMEN: Has positive bowel sounds, soft, nontender. EXTREMITIES: Show no edema. DISCHARGE DISPOSITION: To rehab. DISCHARGE CONDITION: Stable. DISCHARGE MEDICATIONS: Please refer to MAR. DISCHARGE DIAGNOSIS: Failure to thrive. DISCHARGE INSTRUCTIONS: The patient will follow up with his PCP after discharge from the facility. He will see his urologist in 1 week for further evaluation of his BPH and recent procedure. KATE BOYER MD DR: LEODAN/nts JOB#: [id number] / [id number] ENEDINA Ramos MD
== END 2017-01-08 17:55 | DRG 690 ==
LOC: ER 17:04 → 6 SOUTH 18:30 → OBSVTOIN 01-04 14:28
PROVIDERS: ADMIT Internal Medicine; ATTEND Internal Medicine
DX: N39.0 Urinary tract infection, site not specified (principal); Z68.41 Body mass index [BMI] 40.0-44.9, adult; I13.0 Hypertensive heart and chronic kidney disease with heart failure and stage 1 through stage 4 chronic kidney disease, or unspecified chronic kidney disease; E44.0 Moderate protein-calorie malnutrition; N40.0 Benign prostatic hyperplasia without lower urinary tract symptoms; E66.01 Morbid (severe) obesity due to excess calories; D63.1 Anemia in chronic kidney disease; D75.89 Other specified diseases of blood and blood-forming organs; E11.22 Type 2 diabetes mellitus with diabetic chronic kidney disease; E11.649 Type 2 diabetes mellitus with hypoglycemia without coma; E78.5 Hyperlipidemia, unspecified; F03.90 Unspecified dementia, unspecified severity, without behavioral disturbance, psychotic disturbance, mood disturbance, and anxiety; N18.9 Chronic kidney disease, unspecified; I50.9 Heart failure, unspecified; I25.10 Atherosclerotic heart disease of native coronary artery without angina pectoris; S81.819A Laceration without foreign body, unspecified lower leg, initial encounter; X58.XXXA Exposure to other specified factors, initial encounter; D72.829 Elevated white blood cell count, unspecified; J44.9 Chronic obstructive pulmonary disease, unspecified; K21.9 Gastro-esophageal reflux disease without esophagitis; W19.XXXA Unspecified fall, initial encounter; J02.9 Acute pharyngitis, unspecified; M19.90 Unspecified osteoarthritis, unspecified site; Z90.49 Acquired absence of other specified parts of digestive tract; Z95.0 Presence of cardiac pacemaker; Z80.9 Family history of malignant neoplasm, unspecified; Z82.49 Family history of ischemic heart disease and other diseases of the circulatory system; Y92.89 Other specified places as the place of occurrence of the external cause; Y99.8 Other external cause status
CPT/HCPCS: 36415; 71010; 73080; 80048; 80076; 81001; 82553; 82607; 82728; 82746; 82962; 83540; 83550; 83735; 83880; 84443; 84484; 85007; 85027; 85045; 87086; 93005; 94640; 94660; 94760; G0378; G0379; J0696; J1815; J7030; J7042; J7620; 97110; 97116; 97530; 97535; 99285-25

== ENCOUNTER 2017-01-24 11:31 | Inpatient (IN) | payer MEDICARE, OTHER ==
[~2017-01-24] VITALS: Ht 175.3 cm; Wt 123.9 kg
[2017-01-24 12:17] LABS: BASO # 0.1 x10^3/uL (0.0-0.2); BASO % 1 % (0-3); EOS % 2 % (0-3); HEMATOCRIT 26.7 % (39.0-53.0); HEMOGLOBIN 8.6 g/dL (13.0-17.5); LYMPH # 1.2 x10^3/uL (1.0-4.8); LYMPH % 16 % (24-48); MEAN CORPUSCULAR HEMOGLOBIN 33 pg (25-35); MEAN CORPUSCULAR HGB CONC 32 g/dL (31-37); MEAN CORPUSCULAR VOLUME 103 fL (79-100); MONO % 21 % (0-9); NEUT % 59 % (31-73); PLATELET COUNT 133 x10^3/uL (140-400); RED BLOOD COUNT 2.59 x10^6/uL (4.30-5.70); RED CELL DISTRIBUTION WIDTH 14.9 % (11.5-14.5); WHITE BLOOD COUNT 7.5 x10^3/uL (4.0-11.0)
--- NOTE | 2017-01-24 12:21 | EKG ---
[facility] [address] [place] [address] Test Date: 2017-01-24 Test Time: 12:17:03 Pat Name: JAZMIN YOUNG Department: Room: Gender: M Awake Overnight Counselor: : 1930 Requested By: BEATRIZ DHILLON Order Number: [id number] Reading MD: Measurements Intervals [place] Rate: 72 P: WI: QRS: -5 QRSD: 86 T: 84 QT: 376 QTc: 413 Interpretive Statements ACCELERATED JUNCTIONAL RHYTHM LEFTWARD AXIS LOW LIMB LEAD VOLTAGE RI6.01 Unconfirmed report No previous ECG available for comparison
[2017-01-24 12:25] LABS: CALCIUM 7.7 mg/dL (8.5-10.1); CREATININE 5.1 mg/dL (0.7-1.3); GFR 13.1; POTASSIUM 4.1 mmol/L (3.5-5.1)
--- NOTE | 2017-01-24 12:30 | RAD ---
Indication shortness of air. A single view of the chest was obtained and is compared to an examination 01/03/2017. There is unchanged mild elevation of the right hemidiaphragm. There is mild cardiomegaly, similar. There is no acute parenchymal infiltrate. Significant pleural fluid is not seen. There is no pneumothorax. Defibrillating and bipolar cardiac pacing device noted. IMPRESSION: No acute finding. No significant change
[2017-01-24 12:32] LABS: ALBUMIN 2.8 g/dL (3.4-5.0); ALBUMIN/GLOBULIN RATIO 0.7 (1.0-1.7); TOTAL BILIRUBIN 0.2 mg/dL (0.2-1.0); TOTAL PROTEIN 6.7 g/dL (6.4-8.2)
[2017-01-24 13:49] LABS: % EOS 2 % (0-5)
[2017-01-24 13:52] LABS: PLT ESTIMATE ADEQUATE (ADEQUATE)
[2017-01-24 13:53] LABS: ANISOCYTOSIS SLIGHT; HYPOCHROMIA SLIGHT
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
--- NOTE | 2017-01-24 14:33 | RAD ---
CT scan of the head without contrast 01/24/2017 Clinical History: Altered mental status since earlier today. Technique: Unenhanced, contiguous, 5 mm axial sections were obtained through the head. One or more of the following individualized dose reduction techniques were utilized for this study: 1. Automated exposure control. 2. Adjustment of the mA and/or kV according to patient size. 3. Use of iterative reconstruction technique. Findings: Comparison study is dated 12/06/2016. There is generalized parenchymal atrophy. Small scattered areas of decreased attenuation are seen within the periventricular and subcortical white matter of both cerebral hemispheres consistent with areas of small vessel ischemic disease. Small linear infarction is seen involving the left cerebral hemisphere. A 1.1 cm old area of infarction is seen involving the left cerebellar hemisphere. No acute parenchymal abnormality is seen. No extra-axial fluid collection is noted. No skull fracture is seen. Impression: No acute intracranial abnormality is seen.
[2017-01-24] MEDS ORDERED: ONDANSETRON PF 4 MG/2 ML VIAL. IV PRN (15:15)
[2017-01-24] MEDS ORDERED: DEXTROSE 50% 25 GM / 50ML DISP.SYRIN. IV ONE ×2 (15:21→15:30)
--- NOTE | 2017-01-24 15:37 | ACF ---
Admit Criteria Forms Admit Criteria Forms Admit Criteria Forms MENTAL STATUS CHANGE Clinical Indications for Inpatient Care (Place 'X' for any and all applicable criteria): Ongoing inpatient care may be needed for 1 or more of the following(1)(2)(3)(5)( 6): [ ]I. Suspected serious etiology (eg, medical disorder, BIT SHARPENER event) of altered mental status [ ]II. Danger to self or others not manageable at lower level of care [ ]III. Grave disability (eg, inability to perform self care necessary at lower level of care) [ ]IV. Agitation or inappropriate behavior interfering with care for primary condition (eg, attempting to discontinue lines or drains prematurely, unable to cooperate with respiratory care) [ ]V. Delirium [A] [D][E] as described by 1 or more of the following(26): [ ]a) Delirium due to alcohol or sedative [F] withdrawal [ ]b) Delirium of uncertain etiology that has not responded to appropriate empiric treatment [ ]c) Delirium that prevents performance of a life-sustaining function (eg, feeding or hydrating oneself) [X]. General contraindications and/or Inappropriate clinical situations for Observational Care in patients with Mental Status Change, when ANY ONE of the following is required: [X]a) Prediction of prolongation of LOS based on ANY ONE of the following may be considered as a contraindication for observational care 2, 3, 4, 5, 6, 7, 8, 9, 10, 11 [X]i) Age > 65 yrs. [ ]ii) Patient arriving by ambulance [ ]iii) Patient with high acuity [ ]iv) Patient requiring vital sign monitoring [ ]v) Patient on IV medication [ ]b) Systolic blood pressures greater than or equal to 180mmHg 3, 12 [ ]c) Patient with altered mental status including delirium and other alteration of consciousness, (3) [ ]d) Patient whose discharge disposition will be to a [place] [facility] home or rehabilitation home should not be managed in Emergency Department Observation Unit. CMS rule requires 3 days hospital stay before such placement.3,13 [ ]e) Patient with failure to thrive due to broad array of etiologies 3,16,17 [ ]f) Inability to ambulate 3,14 Extended stay beyond goal length of stay for the primary condition may be needed until ALL of the following are present(3)(5): [ ]a) Underlying medical etiology of mental status change is absent, or has been established and adequately treated [ ]b) Danger to self or others is absent or manageable at lower level of care. [ ]c) Behavior crisis management, including physical or chemical restraints, is not required or available at lower level of car [ ]d) Substance or alcohol withdrawal is absent or manageable at lower level of care. [ ]e) Behavioral symptoms (eg, agitation, somnolence, inappropriate behavior) are absent, or are manageable at lower level of care. The original [facility] [employer] content created by [facility] has been revised. The portions of the content which have been revised are identified through the use of italic text or in bold, and [facility] has neither reviewed nor approved the modified material. All other unmodified content is copyright [facility]. Please see references footnoted in the original [facility] [employer] edition 2016 GORDON PATEL Jan 24, 2017 15:37
[2017-01-24 15:58] LABS: BILIRUBIN,URINE NEGATIVE (NEG); GLUCOSE,URINE NEGATIVE (NEG); NITRITE,URINE NEGATIVE (NEG); PH,URINE 6.5; PROTEIN,URINE 30 mg/dL (NEG-TRACE); UROBILINOGEN,URINE 0.2 mg/dL (0.2 mg/dL)
[2017-01-24 16:12] LABS: BACTERIA,URINE 0 /HPF (0-FEW); SQUAMOUS EPITHELIAL CELL,UR OCC /LPF
[2017-01-24 19:00] VITALS: BP 118/61
[2017-01-24] MEDS: LISINOPRIL 20 MG TABLET PO SCH (19:30)
[2017-01-24] MEDS: IV NORMAL SALINE 1000ML BAG 1,000 ML IV SCH ×2 (19:44→21:50)
[2017-01-24] MEDS: IPRATRPIUM/ALBUTEROL 0.5/2.5MG 3 ML NEBU. NEB SCH (20:00)
[2017-01-24] MEDS: NIACIN ER 500 MG TABLET.ER PO SCH (20:32)
[2017-01-24] MEDS: TAMSULOSIN 0.4 MG CAP.ER.24H. PO SCH (20:32)
[2017-01-24] MEDS: PRIMIDONE 50 MG TABLET PO SCH (20:32)
[2017-01-24] MEDS: ATORVASTATIN CALCIUM 20 MG TABLET PO SCH (20:32)
[2017-01-24] MEDS: GABAPENTIN 100 MG CAPSULE. PO SCH (20:32)
[2017-01-24] MEDS: METOPROLOL TART IMMED RELEASE 50 MG TABLET. PO SCH (20:33)
[2017-01-24] MEDS: LATANOPROST 0.005% OPHTH SOLUTION 2.5ML BOTTLE. OU SCH (20:35)
[2017-01-24] MEDS: DORZOLAMIDE 2% OPHTH SOLUTION 10ML BOTTLE. OU SCH (20:35)
[2017-01-24] MEDS ORDERED: NON FORMULARY ITEM (Ipratropium/Albuterol Sulfate (Combivent Respimat Inhal) 2 INH) IH SCH (21:00)
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
[2017-01-24 22:54] VITALS: BP 123/57
[2017-01-25 02:40] VITALS: BP 111/52
[2017-01-25 06:11] LABS: BASO % 1 % (0-3); EOS % 3 % (0-3); HEMATOCRIT 26.1 % (39.0-53.0); HEMOGLOBIN 8.6 g/dL (13.0-17.5); LYMPH # 1.7 x10^3/uL (1.0-4.8); LYMPH % 22 % (24-48); MEAN CORPUSCULAR HEMOGLOBIN 34 pg (25-35); MEAN CORPUSCULAR HGB CONC 33 g/dL (31-37); MEAN CORPUSCULAR VOLUME 101 fL (79-100); MONO % 18 % (0-9); NEUT % 57 % (31-73); PLATELET COUNT 122 x10^3/uL (140-400); RED BLOOD COUNT 2.58 x10^6/uL (4.30-5.70); RED CELL DISTRIBUTION WIDTH 15.1 % (11.5-14.5); WHITE BLOOD COUNT 8.1 x10^3/uL (4.0-11.0)
[2017-01-25 06:31] LABS: CALCIUM 7.8 mg/dL (8.5-10.1); CREATININE 4.9 mg/dL (0.7-1.3); GFR 13.7; POTASSIUM 3.8 mmol/L (3.5-5.1)
[2017-01-25 07:00] VITALS: BP 103/47
[2017-01-25] MEDS: IPRATRPIUM/ALBUTEROL 0.5/2.5MG 3 ML NEBU. NEB SCH ×4 (07:52→19:26)
[2017-01-25] MEDS: METOPROLOL TART IMMED RELEASE 50 MG TABLET. PO SCH ×2 (08:52→21:41)
[2017-01-25] MEDS: ASPIRIN ENTERIC COATED 81 MG TABLET.DR. PO SCH (08:52)
[2017-01-25] MEDS: IV NORMAL SALINE 1000ML BAG 1,000 ML IV SCH ×4 (08:52→17:06)
[2017-01-25] MEDS: LISINOPRIL 20 MG TABLET PO SCH (08:53)
[2017-01-25] MEDS: GABAPENTIN 100 MG CAPSULE. PO SCH ×3 (08:53→21:40)
[2017-01-25] MEDS: PANTOPRAZOLE 40 MG TABLET.DR. PO SCH (08:54)
[2017-01-25] MEDS: DORZOLAMIDE 2% OPHTH SOLUTION 10ML BOTTLE. OU SCH ×2 (08:54→21:51)
[2017-01-25] MEDS ORDERED: FUROSEMIDE 80 MG TABLET. PO SCH (09:00)
[2017-01-25] MEDS ORDERED: MELOXICAM 7.5 MG TABLET PO SCH (09:00)
--- NOTE | 2017-01-25 10:48 | RAD ---
Renal ultrasound 01/25/2017 Clinical history: Diabetes. Renal disease. Technique: A real-time ultrasound examination of both kidneys and the urinary bladder was performed. Multiple images were obtained. Findings: Comparison study is dated 10/08/2016. Both kidneys are within normal limits in size and echogenicity. The right kidney measures 10.5 cm in length. The left kidney measures 11.5 cm in length. No focal abnormality of either kidney is seen. No renal calculus is noted. There is no evidence of hydronephrosis. Images through the pelvis demonstrate the urinary bladder to be slightly contracted. A Santana catheter is noted in place. Impression: Negative study.
[2017-01-25 11:00] VITALS: BP 104/41
[2017-01-25] MEDS ORDERED: DEXTROSE 50% 25 GM / 50ML DISP.SYRIN. IV PRN (11:15)
--- NOTE | 2017-01-25 11:54 | PDOC2 ---
CONSULT Date of Consult Date of Consult DATE: 01/25/17 TIME: 11:49 Reason for Consult Reason for Consult: [place] Referring Physician Referring Physician: SHAMIKA Identification/Chief Complaint Chief Complaint THIS IS AN 86 YR OLD ADMITTED WITH CONFUSION. CT SCAN OF HEAD IS NEG. CR IS 5.1 ON ADMIT. 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 PT NOT ABLE TO GIVE GOOD HX. MEDS NOTED AND HE IS ON A DIURETIC AND NIA-I AND MOBIC. SOME HX OF BPH AND HE HAS BEEN ON FLOMAX Problems: Source Source: Chart review History of Present Illness Reason for Visit: ABOVE Past Medical History Cardiovascular: CAD, CHF, HTN, Hyperlipidemia, Other Pulmonary: COPD, Other CENTRAL NERVOUS SYSTEM: Dementia, Vertigo GI: GERD, Other Heme/Onc: Anemia NOS Hepatobiliary: No pertinent hx Psych: No pertinent hx Musculoskeletal: low back pain, Osteoarthritis Rheumatologic: No pertinent hx Infectious disease: No pertinent hx Renal/: Chronic renal insuff, Benign prostatic enlarg. Endocrine: Diabetes Past Surgical History Past Surgical History: Pacemaker, Cholecystectomy, Other Family History Family History: Cancer, Heart Disease Social History ALCOHOL: none Drugs: None Lives: Alone Domestic Violence: Neg Current Problem List Problem List Problems Medical Problems: (1) Acute kidney injury Status: Acute (2) Hypoglycemia Status: Acute Current Medications Current Medications Current Medications Ondansetron HCl (Zofran) 4 mg PRN Q8HRS PRN IV NAUSEA/VOMITING; Start 01/24/17 at 15:15; Stop 01/25/17 at 15:14 Sodium Chloride 1,000 ml @ 150 mls/hr Q6H40M IV Last administered on t 08:52; Start 01/24/17 at 15:10; Stop 01/25/17 at 15:09 Dextrose (Dextrose 50%-Water Syringe) 12.5 gm 1X ONCE IV Last administered on 01/24/17t 16:38; Start 01/24/17 at 15:30; Stop 01/24/17 at 15:31; Status DC Dextrose (Dextrose 50%-Water Syringe) 25 gm STK-MED ONCE IV ; Start 01/24/17 at 15:21; Stop 01/24/17 at 15:22; Status DC Aspirin (Ecotrin) 81 mg DAILY PO Last administered on 01/25/17 08:52; Start at 09:00 Atorvastatin Calcium (Lipitor) 20 mg HS PO Last administered on 01/24/17 20:32 ; Start 01/24/17 at 21:00 Furosemide (Lasix) 80 mg DAILY PO Last administered on 01/25/17 08:53; Start 01/25/17 at 09:00; Stop 01/25/17 at 10:03; Status DC Gabapentin (Neurontin) 100 mg TID PO Last administered on 01/25/17 08:53; Start 01/24/17 at 21:00 Acetaminophen/ Hydrocodone Bitart (Lortab 5/325) 1 tab PRN Q6HRS PRN PO PAIN; Start 01/24/17 at 19:00 Lisinopril (Prinivil) 20 mg DAILY PO Last administered on 01/25/17 08:53; Start 01/24/17 at 19:30; Stop 01/25/17 at 10:03; Status DC Niacin (Slo-Niacin) 1,000 mg HS PO Last administered on 01/24/17 20:32; Start 01/24/17 at 21:00 Pantoprazole Sodium (Protonix) 40 mg DAILYAC PO Last administered on 01/25/17 08:54; Start 01/25/17 at 07:30 Primidone (Mysoline) 200 mg HS PO Last administered on 01/24/17 20:32; Start 01/24/17 at 21:00 Tamsulosin HCl (Flomax) 0.4 mg HS PO Last administered on 01/24/17 20:32; Start 01/24/17 at 21:00 Dorzolamide HCl (Trusopt) 1 drop BID OU Last administered on 01/25/17 08:54; Start 01/24/17 at 21:00 Non-Formulary Medication 2 inh QID IH ; Start 01/24/17 at 21:00; Status UNV Meloxicam (Mobic) 15 mg DAILY PO Last administered on 01/25/17 08:54; Start at 09:00; Stop 01/25/17 at 10:03; Status DC Metoprolol Tartrate (Lopressor) 100 mg BID PO Last administered on 01/25/17 08 :52; Start 01/24/17 at 21:00 Latanoprost (Xalatan) 1 drop QHS OU Last administered on 01/24/17 20:35; Start 01/24/17 at 21:00 Albuterol/ Ipratropium (Duoneb) 3 ml RTQID NEB Last administered on 01/25/17 11:20; Start 01/24/17 at 20:00 Insulin Aspart (NovoLOG) 0-9 UNITS TIDWMEALS SQ ; Start 01/25/17 at 12:00 Dextrose (Dextrose 50%-Water Syringe) 12.5 gm PRN Q15MIN PRN IV SEE COMMENTS; Start 01/25/17 at 11:15 Sodium Chloride 1,000 ml @ 125 mls/hr Q8H IV ; Start 01/25/17 at 11:15 Active Scripts Active [place] 5-325 Tablet (Acetaminophen/Hydrocodone Bitart) 1 Each Tablet 1 Tab PO PRN Q6HRS PRN Reported Furosemide 80 Mg Tablet 80 Mg PO DAILY Meloxicam 15 Mg Tablet 15 Mg PO DAILY Combivent Respimat Inhal (Ipratropium/Albuterol Sulfate) 4 Gm Aer.w.adap 2 Inh IH QID Gabapentin 100 Mg Capsule 100 Mg PO TID Januvia (Sitagliptin Phosphate) 50 Mg Tablet 25 Mg PO DAILY Metoprolol Tartrate 100 Mg Tablet 1 Tab PO BID Niaspan (Niacin) 500 Mg Tab.er.24h 1,000 Mg PO HS Travatan Z (Travoprost) 5 Ml Drops 1 Drop EACHEYE QHS Humalog (Insulin Lispro) 100 Unit/1 Ml Insuln.pen 35 Unit SQ TIDAC Lantus (Insulin Glargine,Hum.rec.anlog) 100 Unit/1 Ml Vial 75 Unit SQ HS Primidone 50 Mg Tablet 200 Mg PO HS Pantoprazole Sodium 40 Mg Tablet.dr 1 Tab PO DAILY Lisinopril 20 Mg Tablet 1 Tab PO DAILY Lipitor (Atorvastatin Calcium) 20 Mg Tablet 20 Mg PO HS Azopt (Brinzolamide) 10 Ml Drops.susp 10 Ml OP BID PRN Flomax (Tamsulosin Hcl) 0.4 Mg Cap.er.24h 0.4 Mg PO HS Zetia (Ezetimibe) 10 Mg Tablet 10 Mg PO DAILY Ecotrin (Aspirin) 81 Mg Tablet.dr 81 Mg PO Allergies Allergies: Coded Allergies: No Known Drug Allergies (Unverified , 08/02/13) ROS Review of System UNABLE TO OBTAIN Physical Exam General: Cooperative, No acute distress HEENT: Atraumatic, PERRLA Lungs: Clear to auscultation, Normal air movement Heart: Regular rate, Normal S1, Normal S2 Abdomen: Normal bowel sounds, Soft, No tenderness Extremities: No clubbing, No edema Neuro: Other (NO ASYMMETRY) Psych/Mental Status: Other (CONFUSED) MUSCULOSKELETAL: No deformity, No swelling Vitals VITALS Vital Signs Date Time Temp Pulse Resp B/P (MAP) Pulse Ox O2 Delivery O2 Flow Rate FiO2 01/25/17 11:21 Room Air 01/25/17 11:00 98.2 70 20 104/41 (62) 95 98.2 Labs Labs Laboratory Tests Test 01/24/17 12:00 01/24/17 14:57 01/24/17 15:17 01/24/17 15:50 White Blood Count 7.5 x10^3/uL (4.0-11.0) Red Blood Count 2.59 x10^6/uL (4.30-5.70) Hemoglobin 8.6 g/dL (13.0-17.5) Hematocrit 26.7 % (39.0-53.0) Mean Corpuscular Volume 103 fL (79-100) Mean Corpuscular Hemoglobin 33 pg (25-35) Mean Corpuscular Hemoglobin Concent 32 g/dL (31-37) Red Cell Distribution Width 14.9 % (11.5-14.5) Platelet Count 133 x10^3/uL (140-400) Neutrophils (%) (Auto) 59 % (31-73) Lymphocytes (%) (Auto) 16 % (24-48) Monocytes (%) (Auto) 21 % (0-9) Eosinophils (%) (Auto) 2 % (0-3) Basophils (%) (Auto) 1 % (0-3) Neutrophils # (Auto) 4.4 x10^3uL (1.8-7.7) Lymphocytes # (Auto) 1.2 x10^3/uL (1.0-4.8) Monocytes # (Auto) 1.6 x10^3/uL (0.0-1.1) Eosinophils # (Auto) 0.2 x10^3/uL (0.0-0.7) Basophils # (Auto) 0.1 x10^3/uL (0.0-0.2) Segmented Neutrophils % 64 % (35-66) Lymphocytes % 14 % (24-48) Monocytes % 20 % (0-10) Eosinophils % 2 % (0-5) Platelet Estimate Adequate (ADEQUATE) Hypochromasia Slight Anisocytosis Slight Sodium Level 140 mmol/L (136-145) Potassium Level 4.1 mmol/L (3.5-5.1) Chloride Level 102 mmol/L (98-107) Carbon Dioxide Level 27 mmol/L (21-32) Anion Gap 11 (6-14) Blood Urea Nitrogen 53 mg/dL (8-26) Creatinine 5.1 mg/dL (0.7-1.3) Estimated GFR (Cockcroft-Gault) 13.1 BUN/Creatinine Ratio 10 (6-20) Glucose Level 45 mg/dL (70-99) Calcium Level 7.7 mg/dL (8.5-10.1) Total Bilirubin 0.2 mg/dL (0.2-1.0) Aspartate Amino Transf (AST/SGOT) 28 U/L (15-37) Alanine Aminotransferase (ALT/SGPT) 39 U/L (16-63) Alkaline Phosphatase 63 U/L (46-116) Troponin I Quantitative 0.052 ng/mL (0.000-0.055) Total Protein 6.7 g/dL (6.4-8.2) Albumin 2.8 g/dL (3.4-5.0) Albumin/Globulin Ratio 0.7 (1.0-1.7) Lipase 92 U/L (73-393) Glucose (Fingerstick) 47 mg/dL (70-99) 47 mg/dL (70-99) Urine Color Yellow Urine Clarity Clear Urine pH 6.5 Urine Specific [place] <=1.005 Urine Protein 30 mg/dL (NEG-TRACE) Urine Glucose (UA) Negative mg/dL (NEG) Urine Ketones (Stick) Negative mg/dL (NEG) Urine Blood Large (NEG) Urine Nitrite Negative (NEG) Urine Bilirubin Negative (NEG) Urine Urobilinogen Dipstick 0.2 mg/dL (0.2 mg/dL) Urine Leukocyte Esterase Large (NEG) Urine RBC 3-5 /HPF (0-2) Urine WBC 5-10 /HPF (0-4) Urine Squamous Epithelial Cells Occ /LPF Urine Amorphous Sediment Present /HPF Urine Bacteria 0 /HPF (0-FEW) Test 01/24/17 16:29 01/24/17 17:50 01/24/17 20:28 01/25/17 04:30 Glucose (Fingerstick) 117 mg/dL (70-99) 111 mg/dL (70-99) 188 mg/dL (70-99) White Blood Count 8.1 x10^3/uL (4.0-11.0) Red Blood Count 2.58 x10^6/uL (4.30-5.70) Hemoglobin 8.6 g/dL (13.0-17.5) Hematocrit 26.1 % (39.0-53.0) Mean Corpuscular Volume 101 fL (79-100) Mean Corpuscular Hemoglobin 34 pg (25-35) Mean Corpuscular Hemoglobin Concent 33 g/dL (31-37) Red Cell Distribution Width 15.1 % (11.5-14.5) Platelet Count 122 x10^3/uL (140-400) Neutrophils (%) (Auto) 57 % (31-73) Lymphocytes (%) (Auto) 22 % (24-48) Monocytes (%) (Auto) 18 % (0-9) Eosinophils (%) (Auto) 3 % (0-3) Basophils (%) (Auto) 1 % (0-3) Neutrophils # (Auto) 4.6 x10^3uL (1.8-7.7) Lymphocytes # (Auto) 1.7 x10^3/uL (1.0-4.8) Monocytes # (Auto) 1.5 x10^3/uL (0.0-1.1) Eosinophils # (Auto) 0.2 x10^3/uL (0.0-0.7) Basophils # (Auto) 0.0 x10^3/uL (0.0-0.2) Sodium Level 138 mmol/L (136-145) Potassium Level 3.8 mmol/L (3.5-5.1) Chloride Level 102 mmol/L (98-107) Carbon Dioxide Level 24 mmol/L (21-32) Anion Gap 12 (6-14) Blood Urea Nitrogen 53 mg/dL (8-26) Creatinine 4.9 mg/dL (0.7-1.3) Estimated GFR (Cockcroft-Gault) 13.7 Glucose Level 145 mg/dL (70-99) Calcium Level 7.8 mg/dL (8.5-10.1) Test 01/25/17 07:57 01/25/17 11:25 Glucose (Fingerstick) 157 mg/dL (70-99) 230 mg/dL (70-99) Laboratory Tests Test 01/24/17 12:00 01/24/17 14:57 01/24/17 15:17 01/24/17 15:50 White Blood Count 7.5 x10^3/uL (4.0-11.0) Red Blood Count 2.59 x10^6/uL (4.30-5.70) Hemoglobin 8.6 g/dL (13.0-17.5) Hematocrit 26.7 % (39.0-53.0) Mean Corpuscular Volume 103 fL (79-100) Mean Corpuscular Hemoglobin 33 pg (25-35) Mean Corpuscular Hemoglobin Concent 32 g/dL (31-37) Red Cell Distribution Width 14.9 % (11.5-14.5) Platelet Count 133 x10^3/uL (140-400) Neutrophils (%) (Auto) 59 % (31-73) Lymphocytes (%) (Auto) 16 % (24-48) Monocytes (%) (Auto) 21 % (0-9) Eosinophils (%) (Auto) 2 % (0-3) Basophils (%) (Auto) 1 % (0-3) Neutrophils # (Auto) 4.4 x10^3uL (1.8-7.7) Lymphocytes # (Auto) 1.2 x10^3/uL (1.0-4.8) Monocytes # (Auto) 1.6 x10^3/uL (0.0-1.1) Eosinophils # (Auto) 0.2 x10^3/uL (0.0-0.7) Basophils # (Auto) 0.1 x10^3/uL (0.0-0.2) Segmented Neutrophils % 64 % (35-66) Lymphocytes % 14 % (24-48) Monocytes % 20 % (0-10) Eosinophils % 2 % (0-5) Platelet Estimate Adequate (ADEQUATE) Hypochromasia Slight Anisocytosis Slight Sodium Level 140 mmol/L (136-145) Potassium Level 4.1 mmol/L (3.5-5.1) Chloride Level 102 mmol/L (98-107) Carbon Dioxide Level 27 mmol/L (21-32) Anion Gap 11 (6-14) Blood Urea Nitrogen 53 mg/dL (8-26) Creatinine 5.1 mg/dL (0.7-1.3) Estimated GFR (Cockcroft-Gault) 13.1 BUN/Creatinine Ratio 10 (6-20) Glucose Level 45 mg/dL (70-99) Calcium Level 7.7 mg/dL (8.5-10.1) Total Bilirubin 0.2 mg/dL (0.2-1.0) Aspartate Amino Transf (AST/SGOT) 28 U/L (15-37) Alanine Aminotransferase (ALT/SGPT) 39 U/L (16-63) Alkaline Phosphatase 63 U/L (46-116) Troponin I Quantitative 0.052 ng/mL (0.000-0.055) Total Protein 6.7 g/dL (6.4-8.2) Albumin 2.8 g/dL (3.4-5.0) Albumin/Globulin Ratio 0.7 (1.0-1.7) Lipase 92 U/L (73-393) Glucose (Fingerstick) 47 mg/dL (70-99) 47 mg/dL (70-99) Urine Color Yellow Urine Clarity Clear Urine pH 6.5 Urine Specific [place] <=1.005 Urine Protein 30 mg/dL (NEG-TRACE) Urine Glucose (UA) Negative mg/dL (NEG) Urine Ketones (Stick) Negative mg/dL (NEG) Urine Blood Large (NEG) Urine Nitrite Negative (NEG) Urine Bilirubin Negative (NEG) Urine Urobilinogen Dipstick 0.2 mg/dL (0.2 mg/dL) Urine Leukocyte Esterase Large (NEG) Urine RBC 3-5 /HPF (0-2) Urine WBC 5-10 /HPF (0-4) Urine Squamous Epithelial Cells Occ /LPF Urine Amorphous Sediment Present /HPF Urine Bacteria 0 /HPF (0-FEW) Test 01/24/17 16:29 01/24/17 17:50 01/24/17 20:28 01/25/17 04:30 Glucose (Fingerstick) 117 mg/dL (70-99) 111 mg/dL (70-99) 188 mg/dL (70-99) White Blood Count 8.1 x10^3/uL (4.0-11.0) Red Blood Count 2.58 x10^6/uL (4.30-5.70) Hemoglobin 8.6 g/dL (13.0-17.5) Hematocrit 26.1 % (39.0-53.0) Mean Corpuscular Volume 101 fL (79-100) Mean Corpuscular Hemoglobin 34 pg (25-35) Mean Corpuscular Hemoglobin Concent 33 g/dL (31-37) Red Cell Distribution Width 15.1 % (11.5-14.5) Platelet Count 122 x10^3/uL (140-400) Neutrophils (%) (Auto) 57 % (31-73) Lymphocytes (%) (Auto) 22 % (24-48) Monocytes (%) (Auto) 18 % (0-9) Eosinophils (%) (Auto) 3 % (0-3) Basophils (%) (Auto) 1 % (0-3) Neutrophils # (Auto) 4.6 x10^3uL (1.8-7.7) Lymphocytes # (Auto) 1.7 x10^3/uL (1.0-4.8) Monocytes # (Auto) 1.5 x10^3/uL (0.0-1.1) Eosinophils # (Auto) 0.2 x10^3/uL (0.0-0.7) Basophils # (Auto) 0.0 x10^3/uL (0.0-0.2) Sodium Level 138 mmol/L (136-145) Potassium Level 3.8 mmol/L (3.5-5.1) Chloride Level 102 mmol/L (98-107) Carbon Dioxide Level 24 mmol/L (21-32) Anion Gap 12 (6-14) Blood Urea Nitrogen 53 mg/dL (8-26) Creatinine 4.9 mg/dL (0.7-1.3) Estimated GFR (Cockcroft-Gault) 13.7 Glucose Level 145 mg/dL (70-99) Calcium Level 7.8 mg/dL (8.5-10.1) Test 01/25/17 07:57 01/25/17 11:25 Glucose (Fingerstick) 157 mg/dL (70-99) 230 mg/dL (70-99) Assessment/Plan Assessment/Plan IMP BRITTON-PROB ATN DEHYDRATION CKD STAGE 3 WITH CR OF 2.0 AT BASELINE ANEMIA HTN DM II PLAN CONT WITH IVF'S RENAL SONOGRAM HOLD HIM MOBIC, LASIX AND NIA-I LABS IN AM MAVERICK TORIBIO MD Jan 25, 2017 11:54
[2017-01-25] MEDS: INSULIN ASPART 300 UNITS/3 ML INSULN.PEN SQ SCH ×3 (12:51→17:05)
[2017-01-25] MEDS ORDERED: ACETAMINOPHEN 325 MG TABLET. PO PRN (13:00)
[2017-01-25] MEDS ORDERED: MORPHINE SULFATE 2 MG/ML DISP.SYRIN. IV PRN (13:00)
[2017-01-25] MEDS ORDERED: DOCUSATE SODIUM 100 MG CAPSULE. PO PRN (13:00)
[2017-01-25] MEDS ORDERED: hydrALAZINE 20 MG/ML VIAL. IVP PRN (13:00)
[2017-01-25] MEDS ORDERED: ONDANSETRON PF 4 MG/2 ML VIAL. IV PRN (13:00)
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
[2017-01-25 15:00] VITALS: BP 114/76
[2017-01-25] MEDS: HEPARIN PF for SUB-Q USE 5,000 UNIT/0.5 ML VIAL. SQ SCH ×2 (15:12→21:50)
[2017-01-25 19:44] VITALS: BP 110/50
[2017-01-25] MEDS: TAMSULOSIN 0.4 MG CAP.ER.24H. PO SCH (21:40)
[2017-01-25] MEDS: ATORVASTATIN CALCIUM 20 MG TABLET PO SCH (21:41)
[2017-01-25] MEDS: NIACIN ER 500 MG TABLET.ER PO SCH (21:41)
[2017-01-25] MEDS: PRIMIDONE 50 MG TABLET PO SCH (21:41)
[2017-01-25] MEDS: HYDROcodone/APAP 5/325MG 1 TAB TABLET PO PRN (21:42)
[2017-01-25] MEDS: INSULIN DETEMIR 300 UNITS/3 ML INSULN.PEN. SQ SCH (21:51)
[2017-01-25] MEDS: LATANOPROST 0.005% OPHTH SOLUTION 2.5ML BOTTLE. OU SCH (21:51)
[2017-01-25 22:37] VITALS: BP 111/52
[2017-01-26] VITALS (7 sets, daily range): BP systolic 117–136; BP diastolic 55–67
[2017-01-26 05:19] LABS: BASO % 0 % (0-3); EOS % 3 % (0-3); HEMATOCRIT 25.6 % (39.0-53.0); HEMOGLOBIN 8.2 g/dL (13.0-17.5); LYMPH # 1.5 x10^3/uL (1.0-4.8); LYMPH % 19 % (24-48); MEAN CORPUSCULAR HEMOGLOBIN 33 pg (25-35); MEAN CORPUSCULAR HGB CONC 32 g/dL (31-37); MEAN CORPUSCULAR VOLUME 104 fL (79-100); MONO % 17 % (0-9); NEUT % 61 % (31-73); PLATELET COUNT 110 x10^3/uL (140-400); RED BLOOD COUNT 2.47 x10^6/uL (4.30-5.70); RED CELL DISTRIBUTION WIDTH 14.9 % (11.5-14.5); WHITE BLOOD COUNT 7.9 x10^3/uL (4.0-11.0)
[2017-01-26 05:43] LABS: CALCIUM 7.1 mg/dL (8.5-10.1); CREATININE 3.7 mg/dL (0.7-1.3); POTASSIUM 4.2 mmol/L (3.5-5.1)
[2017-01-26] MEDS: IV NORMAL SALINE 1000ML BAG 1,000 ML IV SCH ×3 (06:49→21:06)
[2017-01-26] MEDS: HEPARIN PF for SUB-Q USE 5,000 UNIT/0.5 ML VIAL. SQ SCH ×3 (06:53→21:21)
[2017-01-26] MEDS: IPRATRPIUM/ALBUTEROL 0.5/2.5MG 3 ML NEBU. NEB SCH ×4 (07:00→19:49)
[2017-01-26] MEDS: INSULIN ASPART 300 UNITS/3 ML INSULN.PEN SQ SCH ×6 (07:30→16:46)
[2017-01-26] MEDS: METOPROLOL TART IMMED RELEASE 50 MG TABLET. PO SCH ×2 (09:14→21:08)
[2017-01-26] MEDS: ASPIRIN ENTERIC COATED 81 MG TABLET.DR. PO SCH (09:14)
[2017-01-26] MEDS: GABAPENTIN 100 MG CAPSULE. PO SCH ×3 (09:14→21:07)
[2017-01-26] MEDS: PANTOPRAZOLE 40 MG TABLET.DR. PO SCH (09:14)
[2017-01-26] MEDS: DORZOLAMIDE 2% OPHTH SOLUTION 10ML BOTTLE. OU SCH ×2 (09:14→21:11)
--- NOTE | 2017-01-26 09:18 | PDOC ---
PROGRESS NOTES Chief Complaint Chief Complaint AMS, 2/2 hypoglycemia and BRITTON BRITTON, atn, ckd3 stable chronic grade 1 diastolic chf, EF 55% h/o CAD with pci copd gerd htn morbid obesity hld BPH post TURP PPM chronic leg wound, healing chronic anemia, chronic dz, ESRD THROMObocytopenia, stable History of Present Illness History of Present Illness CReat better 3,2 from 5 on admit Some whole body shaking, not SZ like in nature, claims started few days ago Otherwise, no complaints BS high! HOme dose is 35 TID with meals PLAN:INc novolog to 15 TID for now from 5 TID Keep long acting qhs Hgba1c was 7 last month COnt IVF per renal Renal panel wilmar MOnitor the body shakes Vitals Vitals Vital Signs Date Time Temp Pulse Resp B/P (MAP) Pulse Ox O2 Delivery O2 Flow Rate FiO2 01/26/17 07:01 95 Room Air 01/26/17 07:00 98.1 90 20 135/63 (87) 98.1 Physical Exam General: Alert, Cooperative, No acute distress Heart: Regular rate, Normal S1, Normal S2 Lungs: Clear Abdomen: Normal bowel sounds, Soft, No tenderness Extremities: No clubbing, Other (bl leg 1+ edema) Skin: No rashes, Other (right villanueva healted wound) Labs LABS Laboratory Tests Test 01/25/17 11:25 01/25/17 16:44 01/25/17 20:21 01/26/17 04:25 Glucose (Fingerstick) 230 mg/dL (70-99) 265 mg/dL (70-99) 202 mg/dL (70-99) White Blood Count 7.9 x10^3/uL (4.0-11.0) Red Blood Count 2.47 x10^6/uL (4.30-5.70) Hemoglobin 8.2 g/dL (13.0-17.5) Hematocrit 25.6 % (39.0-53.0) Mean Corpuscular Volume 104 fL (79-100) Mean Corpuscular Hemoglobin 33 pg (25-35) Mean Corpuscular Hemoglobin Concent 32 g/dL (31-37) Red Cell Distribution Width 14.9 % (11.5-14.5) Platelet Count 110 x10^3/uL (140-400) Neutrophils (%) (Auto) 61 % (31-73) Lymphocytes (%) (Auto) 19 % (24-48) Monocytes (%) (Auto) 17 % (0-9) Eosinophils (%) (Auto) 3 % (0-3) Basophils (%) (Auto) 0 % (0-3) Neutrophils # (Auto) 4.8 x10^3uL (1.8-7.7) Lymphocytes # (Auto) 1.5 x10^3/uL (1.0-4.8) Monocytes # (Auto) 1.3 x10^3/uL (0.0-1.1) Eosinophils # (Auto) 0.3 x10^3/uL (0.0-0.7) Basophils # (Auto) 0.0 x10^3/uL (0.0-0.2) Sodium Level 142 mmol/L (136-145) Potassium Level 4.2 mmol/L (3.5-5.1) Chloride Level 108 mmol/L (98-107) Carbon Dioxide Level 24 mmol/L (21-32) Anion Gap 10 (6-14) Blood Urea Nitrogen 47 mg/dL (8-26) Creatinine 3.7 mg/dL (0.7-1.3) Estimated GFR (Cockcroft-Gault) 19.0 Glucose Level 173 mg/dL (70-99) Calcium Level 7.1 mg/dL (8.5-10.1) Test 01/26/17 08:06 Glucose (Fingerstick) 221 mg/dL (70-99) Review of Systems Review of Systems shakes, otherswise all else is neg Assessment and Plan Assessmemt and Plan Problems Medical Problems: (1) Acute kidney injury Status: Acute (2) Hypoglycemia Status: Acute Problems: Comment Review of Relevant I have reviewed the following items anthony (where applicable) has been applied. Labs Laboratory Tests Test 01/24/17 12:00 01/24/17 14:57 01/24/17 15:17 01/24/17 15:50 White Blood Count 7.5 x10^3/uL (4.0-11.0) Red Blood Count 2.59 x10^6/uL (4.30-5.70) Hemoglobin 8.6 g/dL (13.0-17.5) Hematocrit 26.7 % (39.0-53.0) Mean Corpuscular Volume 103 fL (79-100) Mean Corpuscular Hemoglobin 33 pg (25-35) Mean Corpuscular Hemoglobin Concent 32 g/dL (31-37) Red Cell Distribution Width 14.9 % (11.5-14.5) Platelet Count 133 x10^3/uL (140-400) Neutrophils (%) (Auto) 59 % (31-73) Lymphocytes (%) (Auto) 16 % (24-48) Monocytes (%) (Auto) 21 % (0-9) Eosinophils (%) (Auto) 2 % (0-3) Basophils (%) (Auto) 1 % (0-3) Neutrophils # (Auto) 4.4 x10^3uL (1.8-7.7) Lymphocytes # (Auto) 1.2 x10^3/uL (1.0-4.8) Monocytes # (Auto) 1.6 x10^3/uL (0.0-1.1) Eosinophils # (Auto) 0.2 x10^3/uL (0.0-0.7) Basophils # (Auto) 0.1 x10^3/uL (0.0-0.2) Segmented Neutrophils % 64 % (35-66) Lymphocytes % 14 % (24-48) Monocytes % 20 % (0-10) Eosinophils % 2 % (0-5) Platelet Estimate Adequate (ADEQUATE) Hypochromasia Slight Anisocytosis Slight Sodium Level 140 mmol/L (136-145) Potassium Level 4.1 mmol/L (3.5-5.1) Chloride Level 102 mmol/L (98-107) Carbon Dioxide Level 27 mmol/L (21-32) Anion Gap 11 (6-14) Blood Urea Nitrogen 53 mg/dL (8-26) Creatinine 5.1 mg/dL (0.7-1.3) Estimated GFR (Cockcroft-Gault) 13.1 BUN/Creatinine Ratio 10 (6-20) Glucose Level 45 mg/dL (70-99) Calcium Level 7.7 mg/dL (8.5-10.1) Total Bilirubin 0.2 mg/dL (0.2-1.0) Aspartate Amino Transf (AST/SGOT) 28 U/L (15-37) Alanine Aminotransferase (ALT/SGPT) 39 U/L (16-63) Alkaline Phosphatase 63 U/L (46-116) Troponin I Quantitative 0.052 ng/mL (0.000-0.055) Total Protein 6.7 g/dL (6.4-8.2) Albumin 2.8 g/dL (3.4-5.0) Albumin/Globulin Ratio 0.7 (1.0-1.7) Lipase 92 U/L (73-393) Glucose (Fingerstick) 47 mg/dL (70-99) 47 mg/dL (70-99) Urine Color Yellow Urine Clarity Clear Urine pH 6.5 Urine Specific Remlap <=1.005 Urine Protein 30 mg/dL (NEG-TRACE) Urine Glucose (UA) Negative mg/dL (NEG) Urine Ketones (Stick) Negative mg/dL (NEG) Urine Blood Large (NEG) Urine Nitrite Negative (NEG) Urine Bilirubin Negative (NEG) Urine Urobilinogen Dipstick 0.2 mg/dL (0.2 mg/dL) Urine Leukocyte Esterase Large (NEG) Urine RBC 3-5 /HPF (0-2) Urine WBC 5-10 /HPF (0-4) Urine Squamous Epithelial Cells Occ /LPF Urine Amorphous Sediment Present /HPF Urine Bacteria 0 /HPF (0-FEW) Test 01/24/17 16:29 01/24/17 17:50 01/24/17 20:28 01/25/17 04:30 Glucose (Fingerstick) 117 mg/dL (70-99) 111 mg/dL (70-99) 188 mg/dL (70-99) White Blood Count 8.1 x10^3/uL (4.0-11.0) Red Blood Count 2.58 x10^6/uL (4.30-5.70) Hemoglobin 8.6 g/dL (13.0-17.5) Hematocrit 26.1 % (39.0-53.0) Mean Corpuscular Volume 101 fL (79-100) Mean Corpuscular Hemoglobin 34 pg (25-35) Mean Corpuscular Hemoglobin Concent 33 g/dL (31-37) Red Cell Distribution Width 15.1 % (11.5-14.5) Platelet Count 122 x10^3/uL (140-400) Neutrophils (%) (Auto) 57 % (31-73) Lymphocytes (%) (Auto) 22 % (24-48) Monocytes (%) (Auto) 18 % (0-9) Eosinophils (%) (Auto) 3 % (0-3) Basophils (%) (Auto) 1 % (0-3) Neutrophils # (Auto) 4.6 x10^3uL (1.8-7.7) Lymphocytes # (Auto) 1.7 x10^3/uL (1.0-4.8) Monocytes # (Auto) 1.5 x10^3/uL (0.0-1.1) Eosinophils # (Auto) 0.2 x10^3/uL (0.0-0.7) Basophils # (Auto) 0.0 x10^3/uL (0.0-0.2) Sodium Level 138 mmol/L (136-145) Potassium Level 3.8 mmol/L (3.5-5.1) Chloride Level 102 mmol/L (98-107) Carbon Dioxide Level 24 mmol/L (21-32) Anion Gap 12 (6-14) Blood Urea Nitrogen 53 mg/dL (8-26) Creatinine 4.9 mg/dL (0.7-1.3) Estimated GFR (Cockcroft-Gault) 13.7 Glucose Level 145 mg/dL (70-99) Calcium Level 7.8 mg/dL (8.5-10.1) Test 01/25/17 07:57 01/25/17 11:25 01/25/17 16:44 01/25/17 20:21 Glucose (Fingerstick) 157 mg/dL (70-99) 230 mg/dL (70-99) 265 mg/dL (70-99) 202 mg/dL (70-99) Test 01/26/17 04:25 01/26/17 08:06 White Blood Count 7.9 x10^3/uL (4.0-11.0) Red Blood Count 2.47 x10^6/uL (4.30-5.70) Hemoglobin 8.2 g/dL (13.0-17.5) Hematocrit 25.6 % (39.0-53.0) Mean Corpuscular Volume 104 fL (79-100) Mean Corpuscular Hemoglobin 33 pg (25-35) Mean Corpuscular Hemoglobin Concent 32 g/dL (31-37) Red Cell Distribution Width 14.9 % (11.5-14.5) Platelet Count 110 x10^3/uL (140-400) Neutrophils (%) (Auto) 61 % (31-73) Lymphocytes (%) (Auto) 19 % (24-48) Monocytes (%) (Auto) 17 % (0-9) Eosinophils (%) (Auto) 3 % (0-3) Basophils (%) (Auto) 0 % (0-3) Neutrophils # (Auto) 4.8 x10^3uL (1.8-7.7) Lymphocytes # (Auto) 1.5 x10^3/uL (1.0-4.8) Monocytes # (Auto) 1.3 x10^3/uL (0.0-1.1) Eosinophils # (Auto) 0.3 x10^3/uL (0.0-0.7) Basophils # (Auto) 0.0 x10^3/uL (0.0-0.2) Sodium Level 142 mmol/L (136-145) Potassium Level 4.2 mmol/L (3.5-5.1) Chloride Level 108 mmol/L (98-107) Carbon Dioxide Level 24 mmol/L (21-32) Anion Gap 10 (6-14) Blood Urea Nitrogen 47 mg/dL (8-26) Creatinine 3.7 mg/dL (0.7-1.3) Estimated GFR (Cockcroft-Gault) 19.0 Glucose Level 173 mg/dL (70-99) Calcium Level 7.1 mg/dL (8.5-10.1) Glucose (Fingerstick) 221 mg/dL (70-99) Laboratory Tests Test 01/25/17 11:25 01/25/17 16:44 01/25/17 20:21 01/26/17 04:25 Glucose (Fingerstick) 230 mg/dL (70-99) 265 mg/dL (70-99) 202 mg/dL (70-99) White Blood Count 7.9 x10^3/uL (4.0-11.0) Red Blood Count 2.47 x10^6/uL (4.30-5.70) Hemoglobin 8.2 g/dL (13.0-17.5) Hematocrit 25.6 % (39.0-53.0) Mean Corpuscular Volume 104 fL (79-100) Mean Corpuscular Hemoglobin 33 pg (25-35) Mean Corpuscular Hemoglobin Concent 32 g/dL (31-37) Red Cell Distribution Width 14.9 % (11.5-14.5) Platelet Count 110 x10^3/uL (140-400) Neutrophils (%) (Auto) 61 % (31-73) Lymphocytes (%) (Auto) 19 % (24-48) Monocytes (%) (Auto) 17 % (0-9) Eosinophils (%) (Auto) 3 % (0-3) Basophils (%) (Auto) 0 % (0-3) Neutrophils # (Auto) 4.8 x10^3uL (1.8-7.7) Lymphocytes # (Auto) 1.5 x10^3/uL (1.0-4.8) Monocytes # (Auto) 1.3 x10^3/uL (0.0-1.1) Eosinophils # (Auto) 0.3 x10^3/uL (0.0-0.7) Basophils # (Auto) 0.0 x10^3/uL (0.0-0.2) Sodium Level 142 mmol/L (136-145) Potassium Level 4.2 mmol/L (3.5-5.1) Chloride Level 108 mmol/L (98-107) Carbon Dioxide Level 24 mmol/L (21-32) Anion Gap 10 (6-14) Blood Urea Nitrogen 47 mg/dL (8-26) Creatinine 3.7 mg/dL (0.7-1.3) Estimated GFR (Cockcroft-Gault) 19.0 Glucose Level 173 mg/dL (70-99) Calcium Level 7.1 mg/dL (8.5-10.1) Test 01/26/17 08:06 Glucose (Fingerstick) 221 mg/dL (70-99) Medications Current Medications Ondansetron HCl (Zofran) 4 mg PRN Q8HRS PRN IV NAUSEA/VOMITING; Start 01/24/17 at 15:15; Stop 01/25/17 at 14:45; Status DC Sodium Chloride 1,000 ml @ 150 mls/hr Q6H40M IV Last administered on t 08:52; Start 01/24/17 at 15:10; Stop 01/25/17 at 15:09; Status DC Dextrose (Dextrose 50%-Water Syringe) 12.5 gm 1X ONCE IV Last administered on 01/24/17 16:38; Start 01/24/17 at 15:30; Stop 01/24/17 at 15:31; Status DC Dextrose (Dextrose 50%-Water Syringe) 25 gm STK-MED ONCE IV ; Start 01/24/17 at 15:21; Stop 01/24/17 at 15:22; Status DC Aspirin (Ecotrin) 81 mg DAILY PO Last administered on 01/25/17 08:52; Start at 09:00 Atorvastatin Calcium (Lipitor) 20 mg HS PO Last administered on 01/25/17 21:41 ; Start 01/24/17 at 21:00 Furosemide (Lasix) 80 mg DAILY PO Last administered on 01/25/17 08:53; Start 01/25/17 at 09:00; Stop 01/25/17 at 10:03; Status DC Gabapentin (Neurontin) 100 mg TID PO Last administered on 01/25/17 21:40; Start 01/24/17 at 21:00 Acetaminophen/ Hydrocodone Bitart (Lortab 5/325) 1 tab PRN Q6HRS PRN PO PAIN Last administered on 01/25/17 21:42; Start 01/24/17 at 19:00 Lisinopril (Prinivil) 20 mg DAILY PO Last administered on 01/25/17 08:53; Start 01/24/17 at 19:30; Stop 01/25/17 at 10:03; Status DC Niacin (Slo-Niacin) 1,000 mg HS PO Last administered on 01/25/17 21:41; Start 01/24/17 at 21:00 Pantoprazole Sodium (Protonix) 40 mg DAILYAC PO Last administered on 01/25/17 08:54; Start 01/25/17 at 07:30 Primidone (Mysoline) 200 mg HS PO Last administered on 01/25/17 21:41; Start 01/24/17 at 21:00 Tamsulosin HCl (Flomax) 0.4 mg HS PO Last administered on 01/25/17 21:40; Start 01/24/17 at 21:00 Dorzolamide HCl (Trusopt) 1 drop BID OU Last administered on 01/25/17 21:51; Start 01/24/17 at 21:00 Non-Formulary Medication 2 inh QID IH ; Start 01/24/17 at 21:00; Status UNV Meloxicam (Mobic) 15 mg DAILY PO Last administered on 01/25/17 08:54; Start at 09:00; Stop 01/25/17 at 10:03; Status DC Metoprolol Tartrate (Lopressor) 100 mg BID PO Last administered on 01/25/17 21 :41; Start 01/24/17 at 21:00 Latanoprost (Xalatan) 1 drop QHS OU Last administered on 01/25/17 21:51; Start 01/24/17 at 21:00 Albuterol/ Ipratropium (Duoneb) 3 ml RTQID NEB Last administered on 01/26/17 07:00; Start 01/24/17 at 20:00 Insulin Aspart (NovoLOG) 0-9 UNITS TIDWMEALS SQ Last administered on 01/25/17 17:05; Start 01/25/17 at 12:00 Dextrose (Dextrose 50%-Water Syringe) 12.5 gm PRN Q15MIN PRN IV SEE COMMENTS; Start 01/25/17 at 11:15 Sodium Chloride 1,000 ml @ 125 mls/hr Q8H IV Last administered on 01/26/17 06 :49; Start 01/25/17 at 11:15 Acetaminophen (Tylenol) 650 mg PRN Q6HRS PRN PO FEVER; Start 01/25/17 at 13:00 Ondansetron HCl (Zofran) 4 mg PRN Q6HRS PRN IV NAUSEA/VOMITING; Start 01/25/17 at 13:00 Morphine Sulfate 2 mg PRN Q2HR PRN IV PAIN; Start 01/25/17 at 13:00 Tramadol HCl (Ultram) 50 mg PRN Q6HRS PRN PO PAIN; Start 01/25/17 at 13:00 Hydralazine HCl (Apresoline) 10 mg PRN Q4HRS PRN IVP ELEVATED BP, SEE COMMENTS ; Start 01/25/17 at 13:00 Docusate Sodium (Colace) 100 mg PRN DAILY PRN PO CONSTIPATION; Start 01/25/17 at 13:00 Insulin Detemir (Levemir) 15 units QHS SQ Last administered on 01/25/17 21:51 ; Start 01/25/17 at 21:00 Insulin Aspart (NovoLOG) 5 units TIDAC SQ Last administered on 01/25/17 17:04 ; Start 01/25/17 at 16:30; Stop 01/26/17 at 08:40; Status DC Heparin Sodium (Porcine) (Heparin Sq) 5,000 unit Q8HRS SQ Last administered on 01/26/17 06:53; Start 01/25/17 at 14:00 Insulin Aspart (NovoLOG) 10 units TIDAC SQ ; Start 01/26/17 at 11:30 Active Scripts Active [facility] 5-325 Tablet (Acetaminophen/Hydrocodone Bitart) 1 Each Tablet 1 Tab PO PRN Q6HRS PRN Reported Furosemide 80 Mg Tablet 80 Mg PO DAILY Meloxicam 15 Mg Tablet 15 Mg PO DAILY Combivent Respimat Inhal (Ipratropium/Albuterol Sulfate) 4 Gm Aer.w.adap 2 Inh IH QID Gabapentin 100 Mg Capsule 100 Mg PO TID Januvia (Sitagliptin Phosphate) 50 Mg Tablet 25 Mg PO DAILY Metoprolol Tartrate 100 Mg Tablet 1 Tab PO BID Niaspan (Niacin) 500 Mg Tab.er.24h 1,000 Mg PO HS Travatan Z (Travoprost) 5 Ml Drops 1 Drop EACHEYE QHS Humalog (Insulin Lispro) 100 Unit/1 Ml Insuln.pen 35 Unit SQ TIDAC Lantus (Insulin Glargine,Hum.rec.anlog) 100 Unit/1 Ml Vial 75 Unit SQ HS Primidone 50 Mg Tablet 200 Mg PO HS Pantoprazole Sodium 40 Mg Tablet.dr 1 Tab PO DAILY Lisinopril 20 Mg Tablet 1 Tab PO DAILY Lipitor (Atorvastatin Calcium) 20 Mg Tablet 20 Mg PO HS Azopt (Brinzolamide) 10 Ml Drops.susp 10 Ml OP BID PRN Flomax (Tamsulosin Hcl) 0.4 Mg Cap.er.24h 0.4 Mg PO HS Zetia (Ezetimibe) 10 Mg Tablet 10 Mg PO DAILY Ecotrin (Aspirin) 81 Mg Tablet.dr 81 Mg PO Vitals/I & O Vital Sign - Last 24 Hours 8/11/01/25/17 01/25/17 01/25/17 11:00 11:21 15:00 15:31 Temp 98.2 98.2 98.2 98.2 Pulse 70 73 Resp 20 B/P (MAP) 104/41 (62) 114/76 (89) Pulse Ox 95 96 O2 Delivery Room Air Room Air Room Air Room Air 01/25/17 01/25/17 01/25/17 01/25/17 19:28 19:44 20:00 21:41 Temp 98.1 98.1 Pulse 70 70 Resp 20 B/P (MAP) 110/50 (70) 110/50 Pulse Ox 97 96 O2 Delivery Room Air Room Air Room Air 01/25/17 01/25/17 01/25/17 01/26/17 21:42 22:37 22:42 03:00 Temp 98.2 97.6 98.2 97.6 Pulse 73 71 Resp 18 18 18 20 B/P (MAP) 111/52 (71) 117/66 (83) Pulse Ox 96 97 97 94 O2 Delivery Room Air Room Air Room Air Room Air 01/26/17 01/26/17 07:00 07:01 Temp 98.1 98.1 Pulse 90 Resp 20 B/P (MAP) 135/63 (87) Pulse Ox 95 95 O2 Delivery Room Air Room Air Intake and Output 01/25/17 01/25/17 01/26/17 14:59 22:59 06:59 Intake Total 400 ml 200 ml 600 ml Output Total 1300 ml 775 ml Balance 400 ml -1100 ml -175 ml LUIS FERNANDO PARSON MD Jan 26, 2017 09:18
--- NOTE | 2017-01-26 11:21 | PDOC ---
Renal-Progress Notes Subjective Notes Notes NO NEW COMPLAINTS History of Present Illness Hx of present illness STABLE Vitals Vitals Vital Signs Date Time Temp Pulse Resp B/P (MAP) Pulse Ox O2 Delivery O2 Flow Rate FiO2 01/26/17 09:14 90 135/63 01/26/17 07:01 95 Room Air 01/26/17 07:00 98.1 20 98.1 Weight Weight [ ] I.O. Intake and Output Intake and Output 01/26/17 06:59 Intake Total 1200 ml Output Total 2075 ml Balance -875 ml Intake Oral 1200 ml Output Urine Total 2075 ml Labs Labs Laboratory Tests Test 01/25/17 11:25 01/25/17 16:44 01/25/17 20:21 01/26/17 04:25 Glucose (Fingerstick) 230 mg/dL (70-99) 265 mg/dL (70-99) 202 mg/dL (70-99) White Blood Count 7.9 x10^3/uL (4.0-11.0) Red Blood Count 2.47 x10^6/uL (4.30-5.70) Hemoglobin 8.2 g/dL (13.0-17.5) Hematocrit 25.6 % (39.0-53.0) Mean Corpuscular Volume 104 fL (79-100) Mean Corpuscular Hemoglobin 33 pg (25-35) Mean Corpuscular Hemoglobin Concent 32 g/dL (31-37) Red Cell Distribution Width 14.9 % (11.5-14.5) Platelet Count 110 x10^3/uL (140-400) Neutrophils (%) (Auto) 61 % (31-73) Lymphocytes (%) (Auto) 19 % (24-48) Monocytes (%) (Auto) 17 % (0-9) Eosinophils (%) (Auto) 3 % (0-3) Basophils (%) (Auto) 0 % (0-3) Neutrophils # (Auto) 4.8 x10^3uL (1.8-7.7) Lymphocytes # (Auto) 1.5 x10^3/uL (1.0-4.8) Monocytes # (Auto) 1.3 x10^3/uL (0.0-1.1) Eosinophils # (Auto) 0.3 x10^3/uL (0.0-0.7) Basophils # (Auto) 0.0 x10^3/uL (0.0-0.2) Sodium Level 142 mmol/L (136-145) Potassium Level 4.2 mmol/L (3.5-5.1) Chloride Level 108 mmol/L (98-107) Carbon Dioxide Level 24 mmol/L (21-32) Anion Gap 10 (6-14) Blood Urea Nitrogen 47 mg/dL (8-26) Creatinine 3.7 mg/dL (0.7-1.3) Estimated GFR (Cockcroft-Gault) 19.0 Glucose Level 173 mg/dL (70-99) Calcium Level 7.1 mg/dL (8.5-10.1) Test 01/26/17 08:06 01/26/17 11:14 Glucose (Fingerstick) 221 mg/dL (70-99) 251 mg/dL (70-99) Review of Systems Constitutional: yes: weakness, alert Ears/Nose/Throat: Yes: no symptom reported Pulmonary: Yes no symptom reported Gastrointestional: Yes: no symptom reported Genitourinary: Yes: no symptom reported Musculoskeletal: Yes: no symptom reported Skin: Yes no symptom reported Psychiatric/Neurological: Yes: no symptom reported Physical Exam General Appearance: no apparent distress Respiratory: bilateral CTA Heart: S1S2, RRR Abdomen: soft, bowel sounds present Extremities: atrophy Neurology: alert Assessment Assessment IMP BRITTON-IMPROVED WITH CR DOWN TO 3.7 FROM 5.1 DEHYDRATION MET ENCEPHALOPATHY DM II HTN ANEMIA PLAN HOLD DIURETIC HOLD MOBIC HOLD NIA-I CONT IVF'S LABS IN AM MAVERICK TORIBIO MD Jan 26, 2017 11:21
[2017-01-26] MEDS: ATORVASTATIN CALCIUM 20 MG TABLET PO SCH (21:07)
[2017-01-26] MEDS: TAMSULOSIN 0.4 MG CAP.ER.24H. PO SCH (21:07)
[2017-01-26] MEDS: NIACIN ER 500 MG TABLET.ER PO SCH (21:07)
[2017-01-26] MEDS: PRIMIDONE 50 MG TABLET PO SCH (21:08)
[2017-01-26] MEDS: LATANOPROST 0.005% OPHTH SOLUTION 2.5ML BOTTLE. OU SCH (21:09)
[2017-01-26] MEDS: INSULIN DETEMIR 300 UNITS/3 ML INSULN.PEN. SQ SCH (21:19)
[2017-01-27 03:12] VITALS: BP 132/51
[2017-01-27] MEDS: IV NORMAL SALINE 1000ML BAG 1,000 ML IV SCH ×2 (03:15→11:15)
[2017-01-27 05:43] LABS: CALCIUM 7.2 mg/dL (8.5-10.1); CREATININE 2.9 mg/dL (0.7-1.3); GFR 25.2; POTASSIUM 4.4 mmol/L (3.5-5.1)
[2017-01-27 05:45] LABS: ALBUMIN 2.5 g/dL (3.4-5.0); CALCIUM 7.4 mg/dL (8.5-10.1); CREATININE 2.8 mg/dL (0.7-1.3); GFR 26.2; PHOSPHORUS 3.3 mg/dL (2.6-4.7); POTASSIUM 4.3 mmol/L (3.5-5.1)
[2017-01-27] MEDS: HEPARIN PF for SUB-Q USE 5,000 UNIT/0.5 ML VIAL. SQ SCH ×3 (06:00→21:36)
[2017-01-27 07:00] VITALS: BP 123/62
[2017-01-27] MEDS: IPRATRPIUM/ALBUTEROL 0.5/2.5MG 3 ML NEBU. NEB SCH ×5 (07:24→20:13)
[2017-01-27] MEDS: PANTOPRAZOLE 40 MG TABLET.DR. PO SCH (07:48)
[2017-01-27] MEDS: INSULIN ASPART 300 UNITS/3 ML INSULN.PEN SQ SCH ×6 (08:00→17:34)
[2017-01-27] MEDS: DORZOLAMIDE 2% OPHTH SOLUTION 10ML BOTTLE. OU SCH ×2 (08:43→21:17)
[2017-01-27] MEDS: GABAPENTIN 100 MG CAPSULE. PO SCH ×2 (08:43→14:04)
[2017-01-27] MEDS: METOPROLOL TART IMMED RELEASE 50 MG TABLET. PO SCH ×2 (08:43→21:12)
[2017-01-27] MEDS: ASPIRIN ENTERIC COATED 81 MG TABLET.DR. PO SCH (08:43)
[2017-01-27 10:30] VITALS: BP 112/74
--- NOTE | 2017-01-27 11:24 | PDOC ---
PROGRESS NOTES Chief Complaint Chief Complaint AMS, 2/2 hypoglycemia rersolved and AK (bETTER) BRITTON, atn, ckd3 stable chronic grade 1 diastolic chf, EF 55% h/o CAD with pci copd gerd htn morbid obesity hld BPH post TURP PPM chronic leg wound, healing chronic anemia, chronic dz, ESRD THROMObocytopenia, stable ESSENTIAL tremors possible History of Present Illness History of Present Illness CReat continues to improve now 2.9 from 5 on admit On IVF per renal BUt whole body shakes cont, mentions his PCP placed him on unrecalled medication for it, qD. Seems to be worse with movement Denies fam hx of it [facility] in [facility] days, then sent home 2-3 days and now back here AGreeable to going back to [facility] - family prefers that too BS better with my inssulin adjustment in saturday SOme SOA toay, crackles, IVF at 125cchr stopped last night PLAN: CXR now PA and lat HOld IVF NO nephrotopxins still DUoneb QID Check BNP COnsult neuro for shakes - in my opinion could be essential tremors, propanolol is an option SW for PPLAce on dc - agreeable Check echo - last EF 55-60% - pt claims last echo was more than 6 mos ago? Vitals Vitals Vital Signs Date Time Temp Pulse Resp B/P (MAP) Pulse Ox O2 Delivery O2 Flow Rate FiO2 01/27/17 10:30 98.4 72 18 112/74 (87) 100 Nasal Cannula 2.0 98.4 Physical Exam General: Alert, Cooperative, No acute distress Heart: Regular rate, Normal S1, Normal S2 Lungs: Clear Abdomen: Normal bowel sounds, Soft, No tenderness Extremities: No clubbing, Other (bl leg 1+ edema) Skin: No rashes, Other (right villanueva healted wound) Labs LABS Laboratory Tests Test 01/26/17 16:40 01/26/17 21:10 01/27/17 04:25 01/27/17 07:53 Glucose (Fingerstick) 204 mg/dL (70-99) 164 mg/dL (70-99) 145 mg/dL (70-99) Sodium Level 144 mmol/L (136-145) Potassium Level 4.4 mmol/L (3.5-5.1) Chloride Level 109 mmol/L (98-107) Carbon Dioxide Level 23 mmol/L (21-32) Anion Gap 12 (6-14) Blood Urea Nitrogen 34 mg/dL (8-26) Creatinine 2.9 mg/dL (0.7-1.3) Estimated GFR (Cockcroft-Gault) 25.2 Glucose Level 128 mg/dL (70-99) Calcium Level 7.2 mg/dL (8.5-10.1) Phosphorus Level 3.3 mg/dL (2.6-4.7) Albumin 2.5 g/dL (3.4-5.0) Review of Systems Review of Systems elena molina no cp Assessment and Plan Assessmemt and Plan Problems Medical Problems: (1) Acute kidney injury Status: Acute (2) Hypoglycemia Status: Acute Problems: Comment Review of Relevant I have reviewed the following items anthony (where applicable) has been applied. Labs Laboratory Tests Test 01/25/17 11:25 01/25/17 16:44 01/25/17 20:21 01/26/17 04:25 Glucose (Fingerstick) 230 mg/dL (70-99) 265 mg/dL (70-99) 202 mg/dL (70-99) White Blood Count 7.9 x10^3/uL (4.0-11.0) Red Blood Count 2.47 x10^6/uL (4.30-5.70) Hemoglobin 8.2 g/dL (13.0-17.5) Hematocrit 25.6 % (39.0-53.0) Mean Corpuscular Volume 104 fL (79-100) Mean Corpuscular Hemoglobin 33 pg (25-35) Mean Corpuscular Hemoglobin Concent 32 g/dL (31-37) Red Cell Distribution Width 14.9 % (11.5-14.5) Platelet Count 110 x10^3/uL (140-400) Neutrophils (%) (Auto) 61 % (31-73) Lymphocytes (%) (Auto) 19 % (24-48) Monocytes (%) (Auto) 17 % (0-9) Eosinophils (%) (Auto) 3 % (0-3) Basophils (%) (Auto) 0 % (0-3) Neutrophils # (Auto) 4.8 x10^3uL (1.8-7.7) Lymphocytes # (Auto) 1.5 x10^3/uL (1.0-4.8) Monocytes # (Auto) 1.3 x10^3/uL (0.0-1.1) Eosinophils # (Auto) 0.3 x10^3/uL (0.0-0.7) Basophils # (Auto) 0.0 x10^3/uL (0.0-0.2) Sodium Level 142 mmol/L (136-145) Potassium Level 4.2 mmol/L (3.5-5.1) Chloride Level 108 mmol/L (98-107) Carbon Dioxide Level 24 mmol/L (21-32) Anion Gap 10 (6-14) Blood Urea Nitrogen 47 mg/dL (8-26) Creatinine 3.7 mg/dL (0.7-1.3) Estimated GFR (Cockcroft-Gault) 19.0 Glucose Level 173 mg/dL (70-99) Calcium Level 7.1 mg/dL (8.5-10.1) Test 01/26/17 08:06 01/26/17 11:14 01/26/17 16:40 01/26/17 21:10 Glucose (Fingerstick) 221 mg/dL (70-99) 251 mg/dL (70-99) 204 mg/dL (70-99) 164 mg/dL (70-99) Test 01/27/17 04:25 01/27/17 07:53 Sodium Level 144 mmol/L (136-145) Potassium Level 4.4 mmol/L (3.5-5.1) Chloride Level 109 mmol/L (98-107) Carbon Dioxide Level 23 mmol/L (21-32) Anion Gap 12 (6-14) Blood Urea Nitrogen 34 mg/dL (8-26) Creatinine 2.9 mg/dL (0.7-1.3) Estimated GFR (Cockcroft-Gault) 25.2 Glucose Level 128 mg/dL (70-99) Calcium Level 7.2 mg/dL (8.5-10.1) Phosphorus Level 3.3 mg/dL (2.6-4.7) Albumin 2.5 g/dL (3.4-5.0) Glucose (Fingerstick) 145 mg/dL (70-99) Laboratory Tests Test 01/26/17 16:40 01/26/17 21:10 01/27/17 04:25 01/27/17 07:53 Glucose (Fingerstick) 204 mg/dL (70-99) 164 mg/dL (70-99) 145 mg/dL (70-99) Sodium Level 144 mmol/L (136-145) Potassium Level 4.4 mmol/L (3.5-5.1) Chloride Level 109 mmol/L (98-107) Carbon Dioxide Level 23 mmol/L (21-32) Anion Gap 12 (6-14) Blood Urea Nitrogen 34 mg/dL (8-26) Creatinine 2.9 mg/dL (0.7-1.3) Estimated GFR (Cockcroft-Gault) 25.2 Glucose Level 128 mg/dL (70-99) Calcium Level 7.2 mg/dL (8.5-10.1) Phosphorus Level 3.3 mg/dL (2.6-4.7) Albumin 2.5 g/dL (3.4-5.0) Microbiology 01/24/17 Urine Culture - Preliminary, Resulted 01/24/17 Urine Culture Result 1 (BREANNA) - Preliminary, Resulted Medications Current Medications Ondansetron HCl (Zofran) 4 mg PRN Q8HRS PRN IV NAUSEA/VOMITING; Start 01/24/17 at 15:15; Stop 01/25/17 at 14:45; Status DC Sodium Chloride 1,000 ml @ 150 mls/hr Q6H40M IV Last administered on 08:52; Start 01/24/17 at 15:10; Stop 01/25/17 at 15:09; Status DC Dextrose (Dextrose 50%-Water Syringe) 12.5 gm 1X ONCE IV Last administered on 01/24/17 16:38; Start 01/24/17 at 15:30; Stop 01/24/17 at 15:31; Status DC Dextrose (Dextrose 50%-Water Syringe) 25 gm STK-MED ONCE IV ; Start 01/24/17 at 15:21; Stop 01/24/17 at 15:22; Status DC Aspirin (Ecotrin) 81 mg DAILY PO Last administered on 01/27/17 08:43; Start at 09:00 Atorvastatin Calcium (Lipitor) 20 mg HS PO Last administered on 01/26/17 21:07 ; Start 01/24/17 at 21:00 Furosemide (Lasix) 80 mg DAILY PO Last administered on 01/25/17 08:53; Start 01/25/17 at 09:00; Stop 01/25/17 at 10:03; Status DC Gabapentin (Neurontin) 100 mg TID PO Last administered on 01/27/17 08:43; Start 01/24/17 at 21:00 Acetaminophen/ Hydrocodone Bitart (Lortab 5/325) 1 tab PRN Q6HRS PRN PO PAIN Last administered on 01/25/17 21:42; Start 01/24/17 at 19:00 Lisinopril (Prinivil) 20 mg DAILY PO Last administered on 01/25/17 08:53; Start 01/24/17 at 19:30; Stop 01/25/17 at 10:03; Status DC Niacin (Slo-Niacin) 1,000 mg HS PO Last administered on 01/26/17 21:07; Start 01/24/17 at 21:00 Pantoprazole Sodium (Protonix) 40 mg DAILYAC PO Last administered on 01/27/17 07:48; Start 01/25/17 at 07:30 Primidone (Mysoline) 200 mg HS PO Last administered on 01/26/17 21:08; Start 01/24/17 at 21:00 Tamsulosin HCl (Flomax) 0.4 mg HS PO Last administered on 01/26/17 21:07; Start 01/24/17 at 21:00 Dorzolamide HCl (Trusopt) 1 drop BID OU Last administered on 01/27/17 08:43; Start 01/24/17 at 21:00 Non-Formulary Medication 2 inh QID IH ; Start 01/24/17 at 21:00; Status UNV Meloxicam (Mobic) 15 mg DAILY PO Last administered on 01/25/17 08:54; Start at 09:00; Stop 01/25/17 at 10:03; Status DC Metoprolol Tartrate (Lopressor) 100 mg BID PO Last administered on 01/27/17 08 :43; Start 01/24/17 at 21:00 Latanoprost (Xalatan) 1 drop QHS OU Last administered on 01/26/17 21:09; Start 01/24/17 at 21:00 Albuterol/ Ipratropium (Duoneb) 3 ml RTQID NEB Last administered on 01/27/17 07:24; Start 01/24/17 at 20:00; Stop 01/27/17 at 09:04; Status DC Insulin Aspart (NovoLOG) 0-9 UNITS TIDWMEALS SQ Last administered on 01/26/17 16:46; Start 01/25/17 at 12:00 Dextrose (Dextrose 50%-Water Syringe) 12.5 gm PRN Q15MIN PRN IV SEE COMMENTS; Start 01/25/17 at 11:15 Sodium Chloride 1,000 ml @ 125 mls/hr Q8H IV Last administered on 01/26/17 21 :06; Start 01/25/17 at 11:15 Acetaminophen (Tylenol) 650 mg PRN Q6HRS PRN PO FEVER; Start 01/25/17 at 13:00 Ondansetron HCl (Zofran) 4 mg PRN Q6HRS PRN IV NAUSEA/VOMITING; Start 01/25/17 at 13:00 Morphine Sulfate 2 mg PRN Q2HR PRN IV PAIN; Start 01/25/17 at 13:00 Tramadol HCl (Ultram) 50 mg PRN Q6HRS PRN PO PAIN; Start 01/25/17 at 13:00 Hydralazine HCl (Apresoline) 10 mg PRN Q4HRS PRN IVP ELEVATED BP, SEE COMMENTS ; Start 01/25/17 at 13:00 Docusate Sodium (Colace) 100 mg PRN DAILY PRN PO CONSTIPATION; Start 01/25/17 at 13:00 Insulin Detemir (Levemir) 15 units QHS SQ Last administered on 01/26/17 21:19 ; Start 01/25/17 at 21:00 Insulin Aspart (NovoLOG) 5 units TIDAC SQ Last administered on 01/26/17 07:30 ; Start 01/25/17 at 16:30; Stop 01/26/17 at 08:40; Status DC Heparin Sodium (Porcine) (Heparin Sq) 5,000 unit Q8HRS SQ Last administered on 01/26/17 21:21; Start 01/25/17 at 14:00 Insulin Aspart (NovoLOG) 10 units TIDAC SQ Last administered on 8/13/17at 08:57 ; Start 01/26/17 at 11:30 Albuterol/ Ipratropium (Duoneb) 3 ml RTQID NEB ; Start 01/27/17 at 09:30 Active Scripts Active [place] 5-325 Tablet (Acetaminophen/Hydrocodone Bitart) 1 Each Tablet 1 Tab PO PRN Q6HRS PRN Reported Furosemide 80 Mg Tablet 80 Mg PO DAILY Meloxicam 15 Mg Tablet 15 Mg PO DAILY Combivent Respimat Inhal (Ipratropium/Albuterol Sulfate) 4 Gm Aer.w.adap 2 Inh IH QID Gabapentin 100 Mg Capsule 100 Mg PO TID Januvia (Sitagliptin Phosphate) 50 Mg Tablet 25 Mg PO DAILY Metoprolol Tartrate 100 Mg Tablet 1 Tab PO BID Niaspan (Niacin) 500 Mg Tab.er.24h 1,000 Mg PO HS Travatan Z (Travoprost) 5 Ml Drops 1 Drop EACHEYE QHS Humalog (Insulin Lispro) 100 Unit/1 Ml Insuln.pen 35 Unit SQ TIDAC Lantus (Insulin Glargine,Hum.rec.anlog) 100 Unit/1 Ml Vial 75 Unit SQ HS Primidone 50 Mg Tablet 200 Mg PO HS Pantoprazole Sodium 40 Mg Tablet. 1 Tab PO DAILY Lisinopril 20 Mg Tablet 1 Tab PO DAILY Lipitor (Atorvastatin Calcium) 20 Mg Tablet 20 Mg PO HS Azopt (Brinzolamide) 10 Ml Drops.susp 10 Ml OP BID PRN Flomax (Tamsulosin Hcl) 0.4 Mg Cap.er.24h 0.4 Mg PO HS Zetia (Ezetimibe) 10 Mg Tablet 10 Mg PO DAILY Ecotrin (Aspirin) 81 Mg Tablet. 81 Mg PO Vitals/I & O Vital Sign - Last 24 Hours 01/26/17 01/26/17 01/26/17 01/26/17 11:46 14:59 15:45 19:30 Temp 98.2 99.0 98.2 99.0 Pulse 70 83 Resp 20 20 B/P (MAP) 126/67 (86) 121/57 (78) Pulse Ox 96 97 97 94 O2 Delivery Room Air Room Air Room Air Room Air 01/26/17 01/26/17 01/26/17 01/26/17 19:50 20:00 21:08 23:06 Temp 98.6 98.6 Pulse 83 72 Resp 18 B/P (MAP) 121/57 122/55 (77) Pulse Ox 93 96 O2 Delivery Room Air Room Air Room Air 01/27/17 01/27/17 01/27/17 01/27/17 03:12 05:25 07:00 07:27 Temp 97.9 98.6 97.9 98.6 Pulse 73 83 78 Resp 18 22 18 B/P (MAP) 132/51 (78) 123/62 (82) Pulse Ox 93 100 100 98 O2 Delivery Room Air Nasal Cannula Nasal Cannula Nasal Cannula O2 Flow Rate 2.0 2.0 2.0 01/27/17 01/27/17 01/27/17 08:00 08:43 10:30 Temp 98.4 98.4 Pulse 83 72 Resp 18 B/P (MAP) 132/51 112/74 (87) Pulse Ox 100 O2 Delivery Nasal Cannula Nasal Cannula O2 Flow Rate 2.0 2.0 Intake and Output 01/26/17 01/26/17 01/27/17 15:00 23:00 07:00 Intake Total 1360 ml 1780 ml 400 ml Output Total 1800 ml 1175 ml Balance 1360 ml -20 ml -775 ml LUIS FERNANDO PARSON MD Jan 27, 2017 11:24
--- NOTE | 2017-01-27 11:42 | PDOC ---
Renal-Progress Notes Vitals Vitals Vital Signs Date Time Temp Pulse Resp B/P (MAP) Pulse Ox O2 Delivery O2 Flow Rate FiO2 01/27/17 10:30 98.4 72 18 112/74 (87) 100 Nasal Cannula 2.0 98.4 Weight Weight [ ] I.O. Intake and Output Intake and Output 01/27/17 07:00 Intake Total 3540 ml Output Total 2975 ml Balance 565 ml Intake Oral 1540 ml IV Total 2000 ml Output Urine Total 2975 ml Labs Labs Laboratory Tests Test 01/26/17 16:40 01/26/17 21:10 01/27/17 04:25 01/27/17 07:53 Glucose (Fingerstick) 204 mg/dL (70-99) 164 mg/dL (70-99) 145 mg/dL (70-99) Sodium Level 144 mmol/L (136-145) Potassium Level 4.4 mmol/L (3.5-5.1) Chloride Level 109 mmol/L (98-107) Carbon Dioxide Level 23 mmol/L (21-32) Anion Gap 12 (6-14) Blood Urea Nitrogen 34 mg/dL (8-26) Creatinine 2.9 mg/dL (0.7-1.3) Estimated GFR (Cockcroft-Gault) 25.2 Glucose Level 128 mg/dL (70-99) Calcium Level 7.2 mg/dL (8.5-10.1) Phosphorus Level 3.3 mg/dL (2.6-4.7) Albumin 2.5 g/dL (3.4-5.0) Test 01/27/17 11:24 Glucose (Fingerstick) 220 mg/dL (70-99) Micro Micro Microbiology 01/24/17 Urine Culture - Preliminary, Resulted 01/24/17 Urine Culture Result 1 (BREANNA) - Preliminary, Resulted Review of Systems Constitutional: yes: weakness, alert Ears/Nose/Throat: Yes: no symptom reported Pulmonary: Yes no symptom reported Gastrointestional: Yes: no symptom reported Genitourinary: Yes: no symptom reported Musculoskeletal: Yes: no symptom reported Skin: Yes no symptom reported Psychiatric/Neurological: Yes: no symptom reported Physical Exam General Appearance: no apparent distress Respiratory: bilateral CTA Heart: S1S2, RRR Abdomen: soft, bowel sounds present Extremities: atrophy Neurology: alert Assessment Assessment IMP BRITTON-IMPROVED WITH CR DOWN TO 2.8 FROM 5.1 DEHYDRATION-RESOLVED AND NOW SLIGHT HYPERVOLEMIA MET ENCEPHALOPATHY DM II HTN ANEMIA PLAN IV LASIX ONCE TODAY HOLD MOBIC HOLD NIA-I STOP IVF'S LABS IN AM MAVERICK TORIBIO MD Jan 27, 2017 11:42
[2017-01-27] MEDS ORDERED: FUROSEMIDE 40 MG/4 ML VIAL. IVP ONE (12:00)
--- NOTE | 2017-01-27 12:46 | RAD ---
AP and lateral chest radiographs 01/27/2017 Clinical history: Weakness. 2 AP and 2 lateral digital radiographs of the chest were obtained. Comparison study is dated 01/24/2017. A pacemaker is unchanged position. The cardiac silhouette is borderline enlarged. The thoracic aorta is mildly tortuous. No acute pulmonary infiltrate is seen. No pleural effusion or pneumothorax is noted. The osseous structures are unchanged. Impression: No acute abnormality is seen.
[2017-01-27 15:00] VITALS: BP 120/58
[2017-01-27] MEDS: HYDROcodone/APAP 5/325MG 1 TAB TABLET PO PRN (15:29)
--- NOTE | 2017-01-27 16:15 | PDOC2 ---
CONSULT Date of Consult Date of Consult DATE: 01/27/17 TIME: 16:12 Reason for Consult Reason for Consult: Tremors History of Present Illness Reason for Visit: This patient is 48-year-old male who presented to emergency room with blood sugars of 47. Patient also had elevated creatinine. And has multiple medical problems had baseline with history of coronary artery disease, COPD, hypertension, hyperlipidemia, neuropathy, status post pacemaker. He reports he is having tremors and his both hands for the last several months. Patient was previously started on primidone patient reports he has not noticed any benefit. He denies any family history of tremors. He will have more tremors when he is trying to do things with his hands patient denies any tremors while resting. Patient does not have any history of stroke. And reports she has history of knee pains at baseline. Patient denies any history of neck pains. Patient is also currently on low-dose gabapentin for neuropathy. Essential tremors. Patient is currently on primidone. We will titrate the dose of gabapentin to 300 mg twice a day. Which will help with his neuropathic, tremors can further be titrated if needed. CT scan done on the brain did not show any acute intracranial process. Past Medical History Cardiovascular: CAD, CHF, HTN, Hyperlipidemia, Other Pulmonary: COPD, Other CENTRAL NERVOUS SYSTEM: Dementia, Vertigo GI: GERD, Other Heme/Onc: Anemia NOS Hepatobiliary: No pertinent hx Psych: No pertinent hx Rheumatologic: No pertinent hx Infectious disease: No pertinent hx Renal/: Chronic renal insuff, Benign prostatic enlarg. Endocrine: Diabetes Past Surgical History Past Surgical History: Pacemaker, Cholecystectomy, Other Family History Family History: Cancer, Heart Disease Social History ALCOHOL: none Drugs: None Lives: Alone Domestic Violence: Neg Current Problem List Problem List Problems Medical Problems: (1) Acute kidney injury Status: Acute (2) Hypoglycemia Status: Acute Current Medications Current Medications Current Medications Ondansetron HCl (Zofran) 4 mg PRN Q8HRS PRN IV NAUSEA/VOMITING; Start 01/24/17 at 15:15; Stop 01/25/17 at 14:45; Status DC Sodium Chloride 1,000 ml @ 150 mls/hr Q6H40M IV Last administered on t 08:52; Start 01/24/17 at 15:10; Stop 01/25/17 at 15:09; Status DC Dextrose (Dextrose 50%-Water Syringe) 12.5 gm 1X ONCE IV Last administered on 01/24/17 16:38; Start 01/24/17 at 15:30; Stop 01/24/17 at 15:31; Status DC Dextrose (Dextrose 50%-Water Syringe) 25 gm STK-MED ONCE IV ; Start 01/24/17 at 15:21; Stop 01/24/17 at 15:22; Status DC Aspirin (Ecotrin) 81 mg DAILY PO Last administered on 01/27/17 08:43; Start at 09:00 Atorvastatin Calcium (Lipitor) 20 mg HS PO Last administered on 01/26/17 21:07 ; Start 01/24/17 at 21:00 Furosemide (Lasix) 80 mg DAILY PO Last administered on 01/25/17 08:53; Start 01/25/17 at 09:00; Stop 01/25/17 at 10:03; Status DC Gabapentin (Neurontin) 100 mg TID PO Last administered on 01/27/17 14:04; Start 01/24/17 at 21:00; Stop 01/27/17 at 15:52; Status DC Acetaminophen/ Hydrocodone Bitart (Lortab 5/325) 1 tab PRN Q6HRS PRN PO PAIN Last administered on 01/27/17 15:29; Start 01/24/17 at 19:00 Lisinopril (Prinivil) 20 mg DAILY PO Last administered on 01/25/17 08:53; Start 01/24/17 at 19:30; Stop 01/25/17 at 10:03; Status DC Niacin (Slo-Niacin) 1,000 mg HS PO Last administered on 01/26/17 21:07; Start 01/24/17 at 21:00 Pantoprazole Sodium (Protonix) 40 mg DAILYAC PO Last administered on 01/27/17 07:48; Start 01/25/17 at 07:30 Primidone (Mysoline) 200 mg HS PO Last administered on 01/26/17 21:08; Start 01/24/17 at 21:00 Tamsulosin HCl (Flomax) 0.4 mg HS PO Last administered on 01/26/17 21:07; Start 01/24/17 at 21:00 Dorzolamide HCl (Trusopt) 1 drop BID OU Last administered on 01/27/17 08:43; Start 01/24/17 at 21:00 Non-Formulary Medication 2 inh QID IH ; Start 01/24/17 at 21:00; Status UNV Meloxicam (Mobic) 15 mg DAILY PO Last administered on 01/25/17 08:54; Start at 09:00; Stop 01/25/17 at 10:03; Status DC Metoprolol Tartrate (Lopressor) 100 mg BID PO Last administered on 01/27/17 08 :43; Start 01/24/17 at 21:00 Latanoprost (Xalatan) 1 drop QHS OU Last administered on 01/26/17 21:09; Start 01/24/17 at 21:00 Albuterol/ Ipratropium (Duoneb) 3 ml RTQID NEB Last administered on 01/27/17 07:24; Start 01/24/17 at 20:00; Stop 01/27/17 at 09:04; Status DC Insulin Aspart (NovoLOG) 0-9 UNITS TIDWMEALS SQ Last administered on 01/27/17 14:12; Start 01/25/17 at 12:00 Dextrose (Dextrose 50%-Water Syringe) 12.5 gm PRN Q15MIN PRN IV SEE COMMENTS; Start 01/25/17 at 11:15 Sodium Chloride 1,000 ml @ 125 mls/hr Q8H IV Last administered on 01/26/17 21 :06; Start 01/25/17 at 11:15; Stop 01/27/17 at 11:43; Status DC Acetaminophen (Tylenol) 650 mg PRN Q6HRS PRN PO FEVER; Start 01/25/17 at 13:00 Ondansetron HCl (Zofran) 4 mg PRN Q6HRS PRN IV NAUSEA/VOMITING; Start 01/25/17 at 13:00 Morphine Sulfate 2 mg PRN Q2HR PRN IV PAIN; Start 01/25/17 at 13:00 Tramadol HCl (Ultram) 50 mg PRN Q6HRS PRN PO PAIN; Start 01/25/17 at 13:00 Hydralazine HCl (Apresoline) 10 mg PRN Q4HRS PRN IVP ELEVATED BP, SEE COMMENTS ; Start 01/25/17 at 13:00 Docusate Sodium (Colace) 100 mg PRN DAILY PRN PO CONSTIPATION; Start 01/25/17 at 13:00 Insulin Detemir (Levemir) 15 units QHS SQ Last administered on 01/26/17 21:19 ; Start 01/25/17 at 21:00 Insulin Aspart (NovoLOG) 5 units TIDAC SQ Last administered on 01/26/17 07:30 ; Start 01/25/17 at 16:30; Stop 01/26/17 at 08:40; Status DC Heparin Sodium (Porcine) (Heparin Sq) 5,000 unit Q8HRS SQ Last administered on 01/27/17 14:11; Start 01/25/17 at 14:00 Insulin Aspart (NovoLOG) 10 units TIDAC SQ Last administered on 01/27/17 14:13 ; Start 01/26/17 at 11:30 Albuterol/ Ipratropium (Duoneb) 3 ml RTQID NEB Last administered on 01/27/17 15:35; Start 01/27/17 at 09:30 Furosemide (Lasix) 40 mg 1X ONCE IVP Last administered on 01/27/17 14:04; Start 01/27/17 at 12:00; Stop 01/27/17 at 12:01; Status DC Gabapentin (Neurontin) 300 mg BID PO ; Start 01/27/17 at 21:00 Active Scripts Active [place] 5-325 Tablet (Acetaminophen/Hydrocodone Bitart) 1 Each Tablet 1 Tab PO PRN Q6HRS PRN Reported Furosemide 80 Mg Tablet 80 Mg PO DAILY Meloxicam 15 Mg Tablet 15 Mg PO DAILY Combivent Respimat Inhal (Ipratropium/Albuterol Sulfate) 4 Gm Aer.w.adap 2 Inh IH QID Gabapentin 100 Mg Capsule 100 Mg PO TID Januvia (Sitagliptin Phosphate) 50 Mg Tablet 25 Mg PO DAILY Metoprolol Tartrate 100 Mg Tablet 1 Tab PO BID Niaspan (Niacin) 500 Mg Tab.er.24h 1,000 Mg PO HS Travatan Z (Travoprost) 5 Ml Drops 1 Drop EACHEYE QHS Humalog (Insulin Lispro) 100 Unit/1 Ml Insuln.pen 35 Unit SQ TIDAC Lantus (Insulin Glargine,Hum.rec.anlog) 100 Unit/1 Ml Vial 75 Unit SQ HS Primidone 50 Mg Tablet 200 Mg PO HS Pantoprazole Sodium 40 Mg Tablet. 1 Tab PO DAILY Lisinopril 20 Mg Tablet 1 Tab PO DAILY Lipitor (Atorvastatin Calcium) 20 Mg Tablet 20 Mg PO HS Azopt (Brinzolamide) 10 Ml Drops.susp 10 Ml OP BID PRN Flomax (Tamsulosin Hcl) 0.4 Mg Cap.er.24h 0.4 Mg PO HS Zetia (Ezetimibe) 10 Mg Tablet 10 Mg PO DAILY Ecotrin (Aspirin) 81 Mg Tablet.dr 81 Mg PO Allergies Allergies: Coded Allergies: No Known Drug Allergies (Unverified , 08/02/13) Physical Exam Physical Exam REVIEW OF SYSTEMS: Otherwise, not [id number] point review of systems. PHYSICAL EXAMINATION: General appearance is in acute distress. HEENT: Normocephalic and nontraumatic. Neck is supple. No lymphadenopathy. Cardiovascular: S1, S2, regular rate and rhythm. Pulmonary: Clear to auscultation bilaterally. Abdomen: Bowel sounds are positive. Abdomen is soft, nontender, and nondistended. NEUROLOGICAL EXAMINATION: Alert Oriented to time, place and person. PERRL. right left /p Sx able to track CN: no other focal findings. Muscle tone: within normal. Muscle strength:able to move all exts limited by knee pains odema DTR: 1 Plantar reflex: Flexor response bilaterally Gait: not examined in bed. Sensory exam: no abnormal findings. No obvious cerebellar signs elicited. Vitals VITALS Vital Signs Date Time Temp Pulse Resp B/P (MAP) Pulse Ox O2 Delivery O2 Flow Rate FiO2 01/27/17 15:35 Nasal Cannula 2.0 01/27/17 11:37 100 01/27/17 10:30 98.4 72 18 112/74 (87) 98.4 Labs Labs Laboratory Tests Test 01/25/17 16:44 01/25/17 20:21 01/26/17 04:25 01/26/17 08:06 Glucose (Fingerstick) 265 mg/dL (70-99) 202 mg/dL (70-99) 221 mg/dL (70-99) White Blood Count 7.9 x10^3/uL (4.0-11.0) Red Blood Count 2.47 x10^6/uL (4.30-5.70) Hemoglobin 8.2 g/dL (13.0-17.5) Hematocrit 25.6 % (39.0-53.0) Mean Corpuscular Volume 104 fL (79-100) Mean Corpuscular Hemoglobin 33 pg (25-35) Mean Corpuscular Hemoglobin Concent 32 g/dL (31-37) Red Cell Distribution Width 14.9 % (11.5-14.5) Platelet Count 110 x10^3/uL (140-400) Neutrophils (%) (Auto) 61 % (31-73) Lymphocytes (%) (Auto) 19 % (24-48) Monocytes (%) (Auto) 17 % (0-9) Eosinophils (%) (Auto) 3 % (0-3) Basophils (%) (Auto) 0 % (0-3) Neutrophils # (Auto) 4.8 x10^3uL (1.8-7.7) Lymphocytes # (Auto) 1.5 x10^3/uL (1.0-4.8) Monocytes # (Auto) 1.3 x10^3/uL (0.0-1.1) Eosinophils # (Auto) 0.3 x10^3/uL (0.0-0.7) Basophils # (Auto) 0.0 x10^3/uL (0.0-0.2) Sodium Level 142 mmol/L (136-145) Potassium Level 4.2 mmol/L (3.5-5.1) Chloride Level 108 mmol/L (98-107) Carbon Dioxide Level 24 mmol/L (21-32) Anion Gap 10 (6-14) Blood Urea Nitrogen 47 mg/dL (8-26) Creatinine 3.7 mg/dL (0.7-1.3) Estimated GFR (Cockcroft-Gault) 19.0 Glucose Level 173 mg/dL (70-99) Calcium Level 7.1 mg/dL (8.5-10.1) Test 01/26/17 11:14 01/26/17 16:40 01/26/17 21:10 01/27/17 04:25 Glucose (Fingerstick) 251 mg/dL (70-99) 204 mg/dL (70-99) 164 mg/dL (70-99) Sodium Level 144 mmol/L (136-145) Potassium Level 4.4 mmol/L (3.5-5.1) Chloride Level 109 mmol/L (98-107) Carbon Dioxide Level 23 mmol/L (21-32) Anion Gap 12 (6-14) Blood Urea Nitrogen 34 mg/dL (8-26) Creatinine 2.9 mg/dL (0.7-1.3) Estimated GFR (Cockcroft-Gault) 25.2 Glucose Level 128 mg/dL (70-99) Calcium Level 7.2 mg/dL (8.5-10.1) Phosphorus Level 3.3 mg/dL (2.6-4.7) LG-Luk-J-Type Natriuretic Peptide 7398 pg/mL (0-449) Albumin 2.5 g/dL (3.4-5.0) Test 01/27/17 07:53 01/27/17 11:24 01/27/17 14:03 Glucose (Fingerstick) 145 mg/dL (70-99) 220 mg/dL (70-99) 259 mg/dL (70-99) Laboratory Tests Test 01/26/17 16:40 01/26/17 21:10 01/27/17 04:25 01/27/17 07:53 Glucose (Fingerstick) 204 mg/dL (70-99) 164 mg/dL (70-99) 145 mg/dL (70-99) Sodium Level 144 mmol/L (136-145) Potassium Level 4.4 mmol/L (3.5-5.1) Chloride Level 109 mmol/L (98-107) Carbon Dioxide Level 23 mmol/L (21-32) Anion Gap 12 (6-14) Blood Urea Nitrogen 34 mg/dL (8-26) Creatinine 2.9 mg/dL (0.7-1.3) Estimated GFR (Cockcroft-Gault) 25.2 Glucose Level 128 mg/dL (70-99) Calcium Level 7.2 mg/dL (8.5-10.1) Phosphorus Level 3.3 mg/dL (2.6-4.7) HV-Zoy-B-Type Natriuretic Peptide 7398 pg/mL (0-449) Albumin 2.5 g/dL (3.4-5.0) Test 01/27/17 11:24 01/27/17 14:03 Glucose (Fingerstick) 220 mg/dL (70-99) 259 mg/dL (70-99) Assessment/Plan Assessment/Plan This patient is 48-year-old male who presented to emergency room with blood sugars of 47. Patient also had elevated creatinine. And has multiple medical problems had baseline with history of coronary artery disease, COPD, hypertension, hyperlipidemia, neuropathy, status post pacemaker. He reports he is having tremors and his both hands for the last several months. Patient was previously started on primidone patient reports he has not noticed any benefit. He denies any family history of tremors. He will have more tremors when he is trying to do things with his hands patient denies any tremors while resting. Patient does not have any history of stroke. And reports she has history of knee pains at baseline. Patient denies any history of neck pains. Patient is also currently on low-dose gabapentin for neuropathy. Essential tremors. Patient is currently on primidone. We will titrate the dose of gabapentin to 300 mg twice a day. Which will help with his neuropathic, tremors can further be titrated if needed. CT scan done on the brain did not show any acute intracranial process. MRI brain cannot be done due to secondary to pacemaker. Chronic kidney disease. COPD Continue treat and monitor. Continue medical management. YOBANI FINNEGAN MD Jan 27, 2017 16:15
[2017-01-27 19:00] VITALS: BP 107/51
[2017-01-27] MEDS: NIACIN ER 500 MG TABLET.ER PO SCH (21:11)
[2017-01-27] MEDS: TAMSULOSIN 0.4 MG CAP.ER.24H. PO SCH (21:11)
[2017-01-27] MEDS: ATORVASTATIN CALCIUM 20 MG TABLET PO SCH (21:11)
[2017-01-27] MEDS: GABAPENTIN 300 MG CAPSULE. PO SCH (21:11)
[2017-01-27] MEDS: PRIMIDONE 50 MG TABLET PO SCH (21:12)
[2017-01-27] MEDS: LATANOPROST 0.005% OPHTH SOLUTION 2.5ML BOTTLE. OU SCH (21:17)
[2017-01-27] MEDS: INSULIN DETEMIR 300 UNITS/3 ML INSULN.PEN. SQ SCH (21:36)
[2017-01-27 23:00] VITALS: BP 109/58
[2017-01-28 03:00] VITALS: BP 113/61
[2017-01-28] MEDS: HEPARIN PF for SUB-Q USE 5,000 UNIT/0.5 ML VIAL. SQ SCH ×3 (06:02→21:31)
[2017-01-28 06:18] LABS: CALCIUM 7.7 mg/dL (8.5-10.1); CREATININE 2.6 mg/dL (0.7-1.3); GFR 28.5
[2017-01-28 06:19] LABS: POTASSIUM 4.3 mmol/L (3.5-5.1)
[2017-01-28] MEDS: IPRATRPIUM/ALBUTEROL 0.5/2.5MG 3 ML NEBU. NEB SCH ×4 (07:23→19:28)
[2017-01-28 07:35] VITALS: BP 114/43
[2017-01-28] MEDS: INSULIN ASPART 300 UNITS/3 ML INSULN.PEN SQ SCH ×6 (09:41→18:15)
[2017-01-28] MEDS: PANTOPRAZOLE 40 MG TABLET.DR. PO SCH (09:43)
[2017-01-28] MEDS: ASPIRIN ENTERIC COATED 81 MG TABLET.DR. PO SCH (09:43)
[2017-01-28] MEDS: METOPROLOL TART IMMED RELEASE 50 MG TABLET. PO SCH ×2 (09:43→21:19)
[2017-01-28] MEDS: GABAPENTIN 300 MG CAPSULE. PO SCH ×2 (09:43→21:18)
[2017-01-28] MEDS: HYDROcodone/APAP 5/325MG 1 TAB TABLET PO PRN (09:43)
[2017-01-28] MEDS: DORZOLAMIDE 2% OPHTH SOLUTION 10ML BOTTLE. OU SCH ×2 (09:46→21:25)
--- NOTE | 2017-01-28 09:59 | CARD ---
APPROVED REPORT EXAM: Two-dimensional and M-mode echocardiogram with Doppler and color Doppler. Other Information Quality : Average Rhythm : NSRTechnically limited study due to body habitus. INDICATION Dyspnea Congestive Heart Failure 2D DIMENSIONS RVDd4.1 (2.9-3.5cm)Left Atrium(2D)3.8 (1.6-4.0cm) IVSd1.2 (0.7-1.1cm)Aortic Root(2D)3.1 (2.0-3.7cm) LVDd5.1 (3.9-5.9cm)LVOT Diameter2.0 (1.8-2.4cm) PWd1.2 (0.7-1.1cm)LVDs3.9 (2.5-4.0cm) FS (%) 34.0 %SV58.2 ml LVEF(%)57.6 (>50%) Aortic Valve AoV Peak Rick.147.5cm/sAoV VTI28.7cm AO Peak GR.8.7mmHgLVOT Peak Rick.115.9cm/s LVOT VTI 23.40cmAO Mean GR.4mmHg HANNAH (VMAX)2.78zp1RRG (VTI)2.61cm2 Mitral Valve MV E Hqohurvo799.1cm/sMV DECEL WLIB347gy MV A Rrvjgplk87.1cm/sMV E Mean Gr.3mmHg MV MQJ06pmN/A Ratio1.4 MV A Rzzdemcx969dcBZZ (PHT)4.07cm2 TDI E/Lateral E'9.0E/Medial E'11.8 Pulmonary Valve PV Peak Iyorxgaj786.5cm/sPV Peak Grad.5mmHg RVOT VTI19.5cm Tricuspid Valve TR P. Jspgefff997qd/sRAP NXRHELIJ6mrFb TR Peak Gr.66vwKcQYRK43aqDx Pulmonary Vein S1 Yvjuexwm50.7cm/sD2 Bccwevzw92.5cm/s LEFT VENTRICLE The left ventricle is normal size. There is borderline concentric left ventricular hypertrophy. Left ventricle systolic function is normal. The Ejection Fraction is 55-60%. There is normal LV segmental wall motion. The left ventricular diastolic function and filling is normal for age. There is no ventr icular septal defect visualized. RIGHT VENTRICLE The right ventricle is mildly dilated. The right ventricular systolic function is normal. There is a pacemaker lead seen in the RV/RA. ATRIA The left atrium size is normal. The right atrium size is normal. The interatrial septum is intact wit h no evidence for an atrial septal defect or patent foramen ovale as noted on 2-D or Doppler imaging. AORTIC VALVE The aortic valve is mildly calcified.The aortic valve is trileaflet. Doppler and Color Flow revealed no significant aortic regurgitation. There is no significant aortic valvular stenosis. MITRAL VALVE The mitral valve is normal in structure. There is no mitral valve stenosis. Doppler and Color Flow re vealed trace to mild mitral regurgitation. TRICUSPID VALVE The tricuspid valve is normal in structure. Doppler and Color Flow revealed mild tricuspid regurgitat ion.The PA pressure was estimated at 40 mmHg. There is no tricuspid valve stenosis. PULMONIC VALVE The pulmonic valve is not well visualized. Doppler and Color Flow revealed no pulmonic valvular regur gitation. There is no pulmonic valvular stenosis. GREAT VESSELS The aortic root is normal in size. The ascending aorta is normal in size. Normal pulmonary venous vivek w (Doppler). The IVC is normal in size and collapses >50% with inspiration. PERICARDIAL EFFUSION There is no evidence of significant pericardial effusion. Critical Notification Critical Value: No <Conclusion> Left ventricle systolic function is normal. The Ejection Fraction is 55-60%. There is normal LV segmental wall motion. There is a pacemaker lead seen in the RV/RA. Doppler and Color Flow revealed mild tricuspid regurgitation.The PA pressure was estimated at 40 mmHg .
[2017-01-28 11:06] VITALS: BP 174/76
--- NOTE | 2017-01-28 13:39 | PDOC ---
SUBJECTIVE ROS BR[place]/ CKD III doing better per pt report - watns hartman out CVS: no Orthopnea, no CP RESP: no SOB, no MIKE GI: no Nausea, no Vomiting : no Dysuria, no Urgency OBJECTIVE Vital Signs Vital Signs Date Time Temp Pulse Resp B/P (MAP) Pulse Ox O2 Delivery O2 Flow Rate FiO2 01/28/17 11:49 Nasal Cannula 2.0 01/28/17 11:06 97.9 79 18 174/76 (108) 100 97.9 I & 0 Intake and Output 01/28/17 07:00 Intake Total 840 ml Output Total 2750 ml Balance -1910 ml Intake Oral 840 ml Output Urine Total 2750 ml PHYSICAL EXAM Physical Exam GEN: Awake, Oriented x 2, In no distress EYES: Vision Unchanged, Conjunctiva Normal EN: No EN Drainage, Mucous Membranes moist NECK: no JVD, no JVP, Supple, no Thyromegaly - thick neck CVS: S1S2, ? Murmur, No Gallop, No Rub,tr Edema RESP: no Rales, no Rhonchi,no Acc. Muscle Use GI: BS + ve, NO Bruit, Non Tender, Non Distended : no CVA tenderness, no Suprapubic Tenderness DIAGNOSIS/ASSESSMENT Assessment & Plan BR[place]TON - ? ATN (NSAIDs) - partly due to TRIPP: Creat much better with hartman. Current fluid and E-lyte status does not necessitate emergent need for dialysis. Will re-evaluate for dialysis in the am ? TRIPP with Obst - Voiding trial - increased Flomax - URO eval as OP since services NA here. Hypocal - check mag - mostly corrects for lowish ALb ANEMIA; check Iron; Aranap as ordered, Transfuse as needed HTN: occ labile. Current BP meds as reviewed. See orders for changes. Discussed Plan of Care with family [] at bedside [] over the phone Problems: COMMENT/RELEVANT DATA Meds Current Medications Medications (Trade) Dose Ordered Sig/Hevaenly Start Time Stop Time Status Last Admin Dose Admin Acetaminophen (Tylenol) 650 mg PRN Q6HRS PRN 01/25/17 13:00 Acetaminophen/ Hydrocodone Bitart (Lortab 5/325) 1 tab PRN Q6HRS PRN 01/24/17 19:00 01/28/17 09:43 1 TAB Albuterol/ Ipratropium (Duoneb) 3 ml RTQID 01/27/17 09:30 01/28/17 11:48 3 ML Aspirin (Ecotrin) 81 mg DAILY 01/25/17 09:00 01/28/17 09:43 81 MG Atorvastatin Calcium (Lipitor) 20 mg HS 01/24/17 21:00 01/27/17 21:11 20 MG Dextrose (Dextrose 50%-Water Syringe) 12.5 gm PRN Q15MIN PRN 01/25/17 11:15 Docusate Sodium (Colace) 100 mg PRN DAILY PRN 01/25/17 13:00 Dorzolamide HCl (Trusopt) 1 drop BID 01/24/17 21:00 01/28/17 09:46 1 DROP Furosemide (Lasix) 40 mg 1X ONCE 01/27/17 12:00 01/27/17 12:01 DC 01/27/17 14:04 40 MG Gabapentin (Neurontin) 300 mg BID 01/27/17 21:00 01/28/17 09:43 300 MG Heparin Sodium (Porcine) (Heparin Sq) 5,000 unit Q8HRS 01/25/17 14:00 01/28/17 06:02 5,000 UNIT Hydralazine HCl (Apresoline) 10 mg PRN Q4HRS PRN 01/25/17 13:00 Insulin Aspart (NovoLOG) 10 units TIDAC 01/26/17 11:30 01/28/17 12:23 10 UNITS Insulin Detemir (Levemir) 15 units QHS 01/25/17 21:00 01/27/17 21:36 15 UNITS Latanoprost (Xalatan) 1 drop QHS 01/24/17 21:00 01/27/17 21:17 1 DROP Lisinopril (Prinivil) 20 mg DAILY 01/24/17 19:30 01/25/17 10:03 DC 01/25/17 08:53 20 MG Meloxicam (Mobic) 15 mg DAILY 01/25/17 09:00 01/25/17 10:03 DC 01/25/17 08:54 15 MG Metoprolol Tartrate (Lopressor) 100 mg BID 01/24/17 21:00 01/28/17 09:43 100 MG Morphine Sulfate 2 mg PRN Q2HR PRN 01/25/17 13:00 Niacin (Slo-Niacin) 1,000 mg HS 01/24/17 21:00 01/27/17 21:11 1,000 MG Non-Formulary Medication 2 inh QID 01/24/17 21:00 UNV Ondansetron HCl (Zofran) 4 mg PRN Q6HRS PRN 01/25/17 13:00 Pantoprazole Sodium (Protonix) 40 mg DAILYAC 01/25/17 07:30 01/28/17 09:43 40 MG Primidone (Mysoline) 200 mg HS 01/24/17 21:00 01/27/17 21:12 200 MG Sodium Chloride 1,000 ml @ 125 mls/hr Q8H 01/25/17 11:15 01/27/17 11:43 DC 01/26/17 21:06 125 MLS/HR Tamsulosin HCl (Flomax) 0.4 mg HS 01/24/17 21:00 01/27/17 21:11 0.4 MG Tramadol HCl (Ultram) 50 mg PRN Q6HRS PRN 01/25/17 13:00 Lab Laboratory Tests Test 01/27/17 14:03 01/27/17 16:32 01/27/17 21:31 01/28/17 05:35 Glucose (Fingerstick) 259 mg/dL (70-99) 228 mg/dL (70-99) 171 mg/dL (70-99) Sodium Level 141 mmol/L (136-145) Potassium Level 4.3 mmol/L (3.5-5.1) Chloride Level 108 mmol/L (98-107) Carbon Dioxide Level 22 mmol/L (21-32) Anion Gap 11 (6-14) Blood Urea Nitrogen 30 mg/dL (8-26) Creatinine 2.6 mg/dL (0.7-1.3) Estimated GFR (Cockcroft-Gault) 28.5 Glucose Level 135 mg/dL (70-99) Calcium Level 7.7 mg/dL (8.5-10.1) Test 01/28/17 07:42 01/28/17 11:31 Glucose (Fingerstick) 141 mg/dL (70-99) 225 mg/dL (70-99) NHI DUMONT MD Jan 28, 2017 13:39
[2017-01-28] MEDS ORDERED: MAGNESIUM SULFATE 2GM 50 ML IV PRN (13:45)
--- NOTE | 2017-01-28 14:11 | PDOC ---
PROGRESS NOTES Assessment Assessment IMPRESSION: Metabolic encephalopathy. Hypoglycemia, glucose level 47. Hyperglycemia, glucose level 259. DM CAD CHF HTN HLD COPD UTI Anemia Renal failure. Pacemaker placement. Chronic left eye blindness. Obesity. RECOMMENDATIONS/PLAN: Control hypo-hyperglycemia. Treat medical diseases. EEG. OT/PT. Past Medical History Cardiovascular: CAD, CHF, HTN, Hyperlipidemia, Other Pulmonary: COPD, Other CENTRAL NERVOUS SYSTEM: Dementia, Vertigo GI: GERD, Other Heme/Onc: Anemia NOS Hepatobiliary: No pertinent hx Psych: No pertinent hx Rheumatologic: No pertinent hx Infectious disease: No pertinent hx Renal/: Chronic renal insuff, Benign prostatic enlarg. Endocrine: Diabetes Past Surgical History Pacemaker, Cholecystectomy, Other Family History Cancer, Heart Disease Social History ALCOHOL: none Drugs: None Lives: Alone Domestic Violence: Neg ALLERGY: Reviewed. MEDICATIONS: Refer to MAR REVIEW OF SYSTEMS: Constitutional: No malnutrition, weight loss, cachexia. Head: No recent traumatic brain or head injury. Skin: No edema, or rash. Ear: No recent infection. Eyes: No vision loss, or diplopia. Nose: No bleeding or purulent discharges. Hearing: Hearing loss. Neck: No injury. Cardiac: CAD, Pacemaker Placement, HTN, HLD Pulmonary: No CPOD. GI: No GI Ulcer, GI bleeding Urinary/genital: Renal failure. Endocrine: Diabetes Mellitus, obesity. Skeletomuscular: No muscular atrophy, deformity. Neurological: see HP. Psychiatric: Denies drug use/abuse. Otherwise, not [id number] review of systems. PHYSICAL EXAMINATION: General appearance in subacute distress. HEENT: Normocephalic and nontraumatic. Eyes, nose, ears, and throat are unremarkable. Hearing decrease. Neck is supple. No lymphadenopathy. No bruits are heard over the carotid artery. No Crepitus. Cardiovascular: S1, S2, regular rate and rhythm. Pulmonary: Clear to auscultation bilaterally. Abdomen: Bowel sounds are positive. Abdomen is soft, nontender, and nondistended. Extremities: No rash, lesions, or edema. No restriction of range of motion NEUROLOGICAL EXAMINATION: Awake. Oriented to place and person. PERRL. EOMI. CN: no focal findings. Muscle tone: within normal. Muscle strength: 5- DTR: 1+ Plantar reflex: Neutral response bilaterally Gait: not examined in chair. Sensory exam: no abnormal findings. No acute cerebellar signs elicited. F-T-N test fine. Objective Objective Vital Signs Date Time Temp Pulse Resp B/P (MAP) Pulse Ox O2 Delivery O2 Flow Rate FiO2 01/28/17 11:49 Nasal Cannula 2.0 01/28/17 11:06 97.9 79 18 174/76 (108) 100 97.9 Intake and Output 01/28/17 07:00 Intake Total 840 ml Output Total 2750 ml Balance -1910 ml Intake Oral 840 ml Output Urine Total 2750 ml Vitals Signs Vitals VS - Last 72 Hours, by Label Date Time Temp Pulse Resp B/P (MAP) Pulse Ox O2 Delivery O2 Flow Rate FiO2 01/28/17 11:49 Nasal Cannula 2.0 01/28/17 11:06 97.9 79 18 174/76 (108) 100 Nasal Cannula 2.0 97.9 01/28/17 10:43 16 Nasal Cannula 01/28/17 09:43 78 114/43 01/28/17 09:43 16 2.0 01/28/17 08:05 Nasal Cannula 2.0 01/28/17 07:35 98.5 78 20 114/43 (66) 99 Nasal Cannula 2.0 98.5 01/28/17 07:24 Nasal Cannula 2.0 01/28/17 03:00 98.4 69 18 113/61 (78) 99 Nasal Cannula 2.0 98.4 01/27/17 23:00 98.3 74 18 109/58 (75) 100 Nasal Cannula 2.0 98.3 01/27/17 21:12 72 130/56 01/27/17 20:14 99 Nasal Cannula 2.0 01/27/17 20:00 Nasal Cannula 2.0 01/27/17 19:00 98.2 87 20 107/51 (69) 100 Nasal Cannula 2.0 98.2 01/27/17 15:35 Nasal Cannula 2.0 01/27/17 15:00 97.8 96 18 120/58 (78) 100 Nasal Cannula 2.0 97.8 01/27/17 11:37 100 Nasal Cannula 2.0 01/27/17 10:30 98.4 72 18 112/74 (87) 100 Nasal Cannula 2.0 98.4 01/27/17 08:43 83 132/51 01/27/17 08:00 Nasal Cannula 2.0 01/27/17 07:27 98 Nasal Cannula 2.0 01/27/17 07:00 98.6 78 18 123/62 (82) 100 Nasal Cannula 2.0 98.6 Laboratory Laboratory Laboratory Tests Test 01/27/17 16:32 01/27/17 21:31 01/28/17 05:35 01/28/17 07:42 Glucose (Fingerstick) 228 mg/dL (70-99) 171 mg/dL (70-99) 141 mg/dL (70-99) Sodium Level 141 mmol/L (136-145) Potassium Level 4.3 mmol/L (3.5-5.1) Chloride Level 108 mmol/L (98-107) Carbon Dioxide Level 22 mmol/L (21-32) Anion Gap 11 (6-14) Blood Urea Nitrogen 30 mg/dL (8-26) Creatinine 2.6 mg/dL (0.7-1.3) Estimated GFR (Cockcroft-Gault) 28.5 Glucose Level 135 mg/dL (70-99) Calcium Level 7.7 mg/dL (8.5-10.1) Test 01/28/17 11:31 Glucose (Fingerstick) 225 mg/dL (70-99) Microbiology 01/24/17 Urine Culture - Final, Complete 01/24/17 Urine Culture Result 1 (BREANNA) - Final, Complete Medication Medications Current Medications Gabapentin (Neurontin) 300 mg BID PO Last administered on 01/28/17t 09:43; Start 01/27/17 at 21:00 Magnesium Sulfate/ Dextrose 50 ml @ 25 mls/hr PRN DAILY PRN IV for Mag < 1.7 on am labs; Start 01/28/17 at 13:45 Tamsulosin HCl (Flomax) 0.8 mg HS PO ; Start 01/28/17 at 21:00 Comment Review of Relevant I have reviewed the following items anthony (where applicable) has been applied. ALMA DELIA ZELAYA MD Jan 28, 2017 14:11
[2017-01-28 15:25] VITALS: BP 157/71
[2017-01-28] MEDS: traMADol 50 MG TABLET PO PRN (16:09)
--- NOTE | 2017-01-28 18:22 | PDOC ---
PROGRESS NOTES Chief Complaint Chief Complaint AMS ASSESSMENT AND PLAN: 1. Metabolic encephalopathy 2/2 hypoglycemia and BRITTON. improving 2. BRITTON: ?ATN 2/[address] Sanchez following 3. 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 previous creat baseline ~2. appreciate Dr Mauro's input 4. Hypoglycemia: resolved 5. DM: poorly controlled; previously on 75, now 15 levemir. increase qHS dose, cont ISS 6. CHF: chronic DD grade 1. no acute issues 7. Hx CAD: cont 2ary prevention meds 8. HTN/HLD 9. COPD: no acute issues. nebs PRN 10. GERD 11. Hypocalcemia: corrected Ca 8.9 (low alb) 12. Hypoalbuminemia: mod-severe; multifactorial, incl inflammation, renal dz , malnutrition. 13. BPH: s/p recent TURP: Flomax increased, Santana d/c.ed. F/U with urology on O/P basis. 14. chronic leg wound, healing 15. Anemia: chronic, 2/2 chronic dz, ESRD. iron level pending; EPO ordered. 16. Thrombocytopenia, stable 17. ?Essential tremors 18. Dispo: SNF recommended by OT/PT History of Present Illness History of Present Illness no c/o, lethargic Vitals Vitals Vital Signs Date Time Temp Pulse Resp B/P (MAP) Pulse Ox O2 Delivery O2 Flow Rate FiO2 01/28/17 16:09 Nasal Cannula 2.0 01/28/17 15:25 97.9 73 20 157/71 (99) 100 97.9 Physical Exam General: Cooperative, No acute distress, Other (lethargic) Heart: Regular rate Lungs: Clear Abdomen: Normal bowel sounds, Soft, No tenderness, Other (massively obese) Extremities: No clubbing, Other (bl leg 1+ edema) Skin: No rashes, Other (right villanueva healed wound) Labs LABS Laboratory Tests Test 01/27/17 21:31 01/28/17 05:35 01/28/17 07:42 01/28/17 11:31 Glucose (Fingerstick) 171 mg/dL (70-99) 141 mg/dL (70-99) 225 mg/dL (70-99) Sodium Level 141 mmol/L (136-145) Potassium Level 4.3 mmol/L (3.5-5.1) Chloride Level 108 mmol/L (98-107) Carbon Dioxide Level 22 mmol/L (21-32) Anion Gap 11 (6-14) Blood Urea Nitrogen 30 mg/dL (8-26) Creatinine 2.6 mg/dL (0.7-1.3) Estimated GFR (Cockcroft-Gault) 28.5 Glucose Level 135 mg/dL (70-99) Calcium Level 7.7 mg/dL (8.5-10.1) Test 01/28/17 17:45 Glucose (Fingerstick) 188 mg/dL (70-99) KATE BOYER MD Jan 28, 2017 18:22
[2017-01-28 19:00] VITALS: BP 130/57
[2017-01-28] MEDS ORDERED: TAMSULOSIN 0.4 MG CAP.ER.24H. PO SCH (21:00)
[2017-01-28] MEDS ORDERED: INSULIN DETEMIR 300 UNITS/3 ML INSULN.PEN. SQ SCH (21:00)
[2017-01-28] MEDS: PRIMIDONE 50 MG TABLET PO SCH (21:18)
[2017-01-28] MEDS: ATORVASTATIN CALCIUM 20 MG TABLET PO SCH (21:19)
[2017-01-28] MEDS: NIACIN ER 500 MG TABLET.ER PO SCH (21:19)
[2017-01-28] MEDS: LATANOPROST 0.005% OPHTH SOLUTION 2.5ML BOTTLE. OU SCH (21:25)
[2017-01-28 23:00] VITALS: BP 160/58
[2017-01-29 03:00] VITALS: BP 114/46
[2017-01-29] MEDS: HEPARIN PF for SUB-Q USE 5,000 UNIT/0.5 ML VIAL. SQ SCH (05:30)
[2017-01-29] MEDS: INSULIN ASPART 300 UNITS/3 ML INSULN.PEN SQ SCH ×4 (07:30→12:25)
[2017-01-29 07:37] LABS: ALBUMIN 2.6 g/dL (3.4-5.0); CALCIUM 8.4 mg/dL (8.5-10.1); CREATININE 2.3 mg/dL (0.7-1.3); GFR 32.9; PHOSPHORUS 3.1 mg/dL (2.6-4.7); POTASSIUM 4.4 mmol/L (3.5-5.1)
[2017-01-29 07:58] VITALS: BP 129/42
[2017-01-29] MEDS: IPRATRPIUM/ALBUTEROL 0.5/2.5MG 3 ML NEBU. NEB SCH ×2 (08:18→11:19)
[2017-01-29] MEDS: METOPROLOL TART IMMED RELEASE 50 MG TABLET. PO SCH (09:00)
[2017-01-29] MEDS: GABAPENTIN 300 MG CAPSULE. PO SCH (09:00)
[2017-01-29] MEDS: PANTOPRAZOLE 40 MG TABLET.DR. PO SCH (09:00)
[2017-01-29] MEDS: ASPIRIN ENTERIC COATED 81 MG TABLET.DR. PO SCH (09:00)
[2017-01-29] MEDS: DORZOLAMIDE 2% OPHTH SOLUTION 10ML BOTTLE. OU SCH (09:01)
[2017-01-29] MEDS: traMADol 50 MG TABLET PO PRN (09:11)
[2017-01-29] MEDS ORDERED: INSU100V13 SQ (11:03)
[2017-01-29] MEDS ORDERED: GABA-586 PO (11:03)
[2017-01-29] MEDS ORDERED: INSU100C4 SQ (11:03)
--- NOTE | 2017-01-29 11:06 | PDOC3 ---
Discharge Summary Visit Information Date of Admission: Jan 24, 2017 Date of Discharge: Jan 29, 2017 Admitting Diagnosis Comment: AMS, 2/2 hypoglycemia rersolved and AK (bETTER) BRITTON, atn, ckd3 stable chronic grade 1 diastolic chf, EF 55% h/o CAD with pci copd gerd htn morbid obesity hld BPH post TURP PPM chronic leg wound, healing chronic anemia, chronic dz, ESRD THROMObocytopenia, stable ESSENTIAL tremors possible Final Diagnosis Problems Medical Problems: (1) Acute kidney injury Status: Acute (2) Hypoglycemia Status: Acute Brief Hospital Course Allergies Allergies Coded Allergies Type Severity Reaction Last Updated Verified No Known Drug Allergies 08/02/13 No Vital Signs Vital Signs Date Time Temp Pulse Resp B/P (MAP) Pulse Ox O2 Delivery O2 Flow Rate FiO2 01/29/17 09:11 2 Nasal Cannula 01/29/17 09:00 77 129/42 01/29/17 08:19 2.0 01/29/17 07:58 98.1 20 98.1 Lab Results Laboratory Tests Test 01/27/17 11:24 01/27/17 14:03 01/27/17 16:32 01/27/17 21:31 Glucose (Fingerstick) 220 mg/dL (70-99) 259 mg/dL (70-99) 228 mg/dL (70-99) 171 mg/dL (70-99) Test 01/28/17 05:35 01/28/17 07:42 01/28/17 11:31 01/28/17 17:45 Sodium Level 141 mmol/L (136-145) Potassium Level 4.3 mmol/L (3.5-5.1) Chloride Level 108 mmol/L (98-107) Carbon Dioxide Level 22 mmol/L (21-32) Anion Gap 11 (6-14) Blood Urea Nitrogen 30 mg/dL (8-26) Creatinine 2.6 mg/dL (0.7-1.3) Estimated GFR (Cockcroft-Gault) 28.5 Glucose Level 135 mg/dL (70-99) Calcium Level 7.7 mg/dL (8.5-10.1) Glucose (Fingerstick) 141 mg/dL (70-99) 225 mg/dL (70-99) 188 mg/dL (70-99) Test 01/28/17 20:45 01/29/17 06:43 01/29/17 08:20 Glucose (Fingerstick) 146 mg/dL (70-99) 163 mg/dL (70-99) Hemoglobin 8.4 g/dL (13.0-17.5) Sodium Level 142 mmol/L (136-145) Potassium Level 4.4 mmol/L (3.5-5.1) Chloride Level 108 mmol/L (98-107) Carbon Dioxide Level 22 mmol/L (21-32) Anion Gap 12 (6-14) Blood Urea Nitrogen 24 mg/dL (8-26) Creatinine 2.3 mg/dL (0.7-1.3) Estimated GFR (Cockcroft-Gault) 32.9 Glucose Level 128 mg/dL (70-99) Calcium Level 8.4 mg/dL (8.5-10.1) Phosphorus Level 3.1 mg/dL (2.6-4.7) Magnesium Level 1.5 mg/dL (1.8-2.4) Albumin 2.6 g/dL (3.4-5.0) Laboratory Tests Test 01/28/17 11:31 01/28/17 17:45 01/28/17 20:45 01/29/17 06:43 Glucose (Fingerstick) 225 mg/dL (70-99) 188 mg/dL (70-99) 146 mg/dL (70-99) Hemoglobin 8.4 g/dL (13.0-17.5) Sodium Level 142 mmol/L (136-145) Potassium Level 4.4 mmol/L (3.5-5.1) Chloride Level 108 mmol/L (98-107) Carbon Dioxide Level 22 mmol/L (21-32) Anion Gap 12 (6-14) Blood Urea Nitrogen 24 mg/dL (8-26) Creatinine 2.3 mg/dL (0.7-1.3) Estimated GFR (Cockcroft-Gault) 32.9 Glucose Level 128 mg/dL (70-99) Calcium Level 8.4 mg/dL (8.5-10.1) Phosphorus Level 3.1 mg/dL (2.6-4.7) Magnesium Level 1.5 mg/dL (1.8-2.4) Albumin 2.6 g/dL (3.4-5.0) Test 01/29/17 08:20 Glucose (Fingerstick) 163 mg/dL (70-99) Brief Hospital Course Mr. Stokes is a 86 old AA male, Vika is the dtr and DPOA admitted for BRITTON , crea 4 or 5 on admit? better with IVF down to 1.6 on dc, co managed with renal. Was on mobic,. lasix 80 and lisinopril all held,. BP ok., SOme significant tremors in house, neuro assessed as essential tremors, already on primidone and gabapentin titrated to 300 BID from TID. REady for SNU, Pt does not want SNU BUt pt very weak, lives alone and DPOA wants SNU,Agree with DPOA from medical standpoint DispO; PpLace Consults: neuro, renal Proc; [place] Time 34 mins cumulative Dw SW Manny Discharge Information Condition at Discharge: Improved, Stable Disposition/Orders: Other (snu) Scheduled Atorvastatin Calcium (Lipitor), 20 MG PO HS, (Reported) Ezetimibe (Zetia), 10 MG PO DAILY, (Reported) Furosemide (Furosemide), 80 MG PO DAILY, (Reported) Gabapentin (Gabapentin), 100 MG PO TID, (Reported) Insulin Glargine,Hum.rec.anlog (Lantus), 75 UNIT SQ HS, (Reported) Insulin Lispro (Humalog), 35 UNIT SQ TIDAC, (Reported) Ipratropium/Albuterol Sulfate (Combivent Respimat Inhal), 2 INH IH QID, ( Reported) Lisinopril (Lisinopril), 1 TAB PO DAILY, (Reported) Meloxicam (Meloxicam), 15 MG PO DAILY, (Reported) Metoprolol Tartrate (Metoprolol Tartrate), 1 TAB PO BID, (Reported) Niacin (Niaspan), 1,000 MG PO HS, (Reported) Pantoprazole Sodium (Pantoprazole Sodium), 1 TAB PO DAILY, (Reported) Primidone (Primidone), 200 MG PO HS, (Reported) Sitagliptin Phosphate (Januvia), 25 MG PO DAILY, (Reported) Tamsulosin Hcl (Flomax), 0.4 MG PO HS, (Reported) Travoprost (Travatan Z), 1 DROP EACHEYE QHS, (Reported) Scheduled PRN Brinzolamide (Azopt), 10 ML OP BID PRN for DRY EYE, (Reported) Hydrocodone/Apap 5-325 ([place] 5-325 Tablet), 1 TAB PO PRN Q6HRS PRN for PAIN Miscellaneous Medications Aspirin (Ecotrin), 81 MG PO, (Reported) LUIS FERNANDO PARSON MD Jan 29, 2017 11:06
[2017-01-29 11:56] VITALS: BP 115/52
--- NOTE | 2017-01-29 13:01 | EEG ---
DATE OF SERVICE: 01/29/2017 EEG NUMBER: _[id number] OBJECTIVE: This is an 86-year-old -[place] male patient with history of mental status changes and confusion. EEG was requested to evaluate cerebral activity. METHOD: Twenty electrodes were applied according to the International 10-20 electrode placement system. EKG monitoring, hyperventilation, intermittent photic stimulation, monopolar and bipolar montages are routinely utilized. The record was obtained on a digital system with video monitoring. MEDICATIONS: No anti-seizure medication. FINDINGS: 1. Background: The patient was recorded in the awake, drowsy and sleep states. The overall background amplitude is variable. No well-organized posterior dominant rhythm is observed. The overall background rhythm is with diffuse slowing in the theta frequency. 2. Abnormalities: No specific epileptiform discharge or electrographic seizure is seen. Diffuse slowing in the theta frequency is throughout the entire recording. 3. Activation: Hyperventilation was not performed because the patient was not able to follow the commands. Intermittent photic stimulation was performed without significant photic driving. IMPRESSION: This EEG is an abnormal study for the awake, drowsy and sleep states. No clear well-organized posterior dominant rhythm is observed. The overall background rhythm is with diffuse slowing in the theta frequency. No focal, lateralizing, specific epileptiform discharge or electrographic seizure is seen. This pattern of EEG is suggestive of encephalopathy. ALMA DELIA ZELAYA MD DR: Stefani JOB#: [id number] / [id number] JEANNINE
--- NOTE | 2017-01-29 15:22 | PDOC ---
PROGRESS NOTES Assessment Assessment Metabolic encephalopathy. Hypoglycemia, glucose level 47. Hyperglycemia, glucose level 259. DM CAD CHF HTN HLD COPD UTI Anemia Renal failure. Pacemaker placement. Chronic left eye blindness. Obesity. RECOMMENDATIONS/PLAN: Control hypo-hyperglycemia. Treat medical diseases. OT/PT. EEG on 01/29/17: Diffuse encephalopathy. Past Medical History Cardiovascular: CAD, CHF, HTN, Hyperlipidemia, Other Pulmonary: COPD, Other CENTRAL NERVOUS SYSTEM: Dementia, Vertigo GI: GERD, Other Heme/Onc: Anemia NOS Hepatobiliary: No pertinent hx Psych: No pertinent hx Rheumatologic: No pertinent hx Infectious disease: No pertinent hx Renal/: Chronic renal insuff, Benign prostatic enlarg. Endocrine: Diabetes Past Surgical History Pacemaker, Cholecystectomy, Other Family History Cancer, Heart Disease Social History ALCOHOL: none Drugs: None Lives: Alone Domestic Violence: Neg ALLERGY: Reviewed. MEDICATIONS: Refer to MAR REVIEW OF SYSTEMS: Constitutional: No malnutrition, weight loss, cachexia. Head: No recent traumatic brain or head injury. Skin: No edema, or rash. Ear: No recent infection. Eyes: No vision loss, or diplopia. Nose: No bleeding or purulent discharges. Hearing: Hearing loss. Neck: No injury. Cardiac: CAD, Pacemaker Placement, HTN, HLD Pulmonary: No CPOD. GI: No GI Ulcer, GI bleeding Urinary/genital: Renal failure. Endocrine: Diabetes Mellitus, obesity. Skeletomuscular: No muscular atrophy, deformity. Neurological: see HP. Psychiatric: Denies drug use/abuse. Otherwise, not [id number] review of systems. PHYSICAL EXAMINATION: General appearance in subacute distress. HEENT: Normocephalic and nontraumatic. Eyes, nose, ears, and throat are unremarkable. Hearing decrease. Neck is supple. No lymphadenopathy. No bruits are heard over the carotid artery. No Crepitus. Cardiovascular: S1, S2, regular rate and rhythm. Pulmonary: Clear to auscultation bilaterally. Abdomen: Bowel sounds are positive. Abdomen is soft, nontender, and nondistended. Extremities: No rash, lesions, or edema. No restriction of range of motion NEUROLOGICAL EXAMINATION: Awake. Oriented to place and person but not accurate to time. PERRL. EOMI. CN: no focal findings. Muscle tone: within normal. Muscle strength: 5- DTR: 1+ Plantar reflex: Neutral response bilaterally Gait: Able to walk in room. Sensory exam: no abnormal findings. No acute cerebellar signs elicited. F-T-N test fine. Objective Objective Vital Signs Date Time Temp Pulse Resp B/P (MAP) Pulse Ox O2 Delivery O2 Flow Rate FiO2 01/29/17 11:56 98.1 80 16 115/52 (73) 100 Nasal Cannula 2.0 98.1 Intake and Output 01/29/17 07:00 Intake Total 640 ml Output Total 1600 ml Balance -960 ml Intake Oral 640 ml Output Urine Total 1600 ml Vitals Signs Vitals VS - Last 72 Hours, by Label Date Time Temp Pulse Resp B/P (MAP) Pulse Ox O2 Delivery O2 Flow Rate FiO2 01/29/17 11:56 98.1 80 16 115/52 (73) 100 Nasal Cannula 2.0 98.1 01/29/17 11:22 Nasal Cannula 2.0 01/29/17 10:11 Nasal Cannula 2.0 01/29/17 09:11 2 Nasal Cannula 01/29/17 09:00 77 129/42 01/29/17 08:20 Nasal Cannula 2.0 01/29/17 08:19 100 Nasal Cannula 2.0 01/29/17 07:58 98.1 77 20 129/42 (71) 100 Nasal Cannula 2.0 98.1 01/29/17 03:00 97.4 70 20 114/46 (68) 100 Nasal Cannula 2.0 97.4 01/28/17 23:00 97.8 69 21 160/58 (92) 100 Nasal Cannula 2.0 97.8 01/28/17 21:19 74 130/57 01/28/17 19:50 Nasal Cannula 2.0 01/28/17 19:28 Nasal Cannula 2.0 01/28/17 19:00 97.7 74 23 130/57 (81) Nasal Cannula 2.0 97.7 01/28/17 17:09 18 01/28/17 16:09 Nasal Cannula 2.0 01/28/17 15:34 Nasal Cannula 2.0 01/28/17 15:25 97.9 73 20 157/71 (99) 100 Nasal Cannula 2.0 97.9 01/28/17 11:49 Nasal Cannula 2.0 01/28/17 11:06 97.9 79 18 174/76 (108) 100 Nasal Cannula 2.0 97.9 01/28/17 10:43 16 Nasal Cannula 01/28/17 09:43 78 114/43 01/28/17 09:43 16 2.0 01/28/17 08:05 Nasal Cannula 2.0 01/28/17 07:35 98.5 78 20 114/43 (66) 99 Nasal Cannula 2.0 98.5 01/28/17 07:24 Nasal Cannula 2.0 Laboratory Laboratory Laboratory Tests Test 01/28/17 17:45 01/28/17 20:45 01/29/17 06:43 01/29/17 08:20 Glucose (Fingerstick) 188 mg/dL (70-99) 146 mg/dL (70-99) 163 mg/dL (70-99) Hemoglobin 8.4 g/dL (13.0-17.5) Sodium Level 142 mmol/L (136-145) Potassium Level 4.4 mmol/L (3.5-5.1) Chloride Level 108 mmol/L (98-107) Carbon Dioxide Level 22 mmol/L (21-32) Anion Gap 12 (6-14) Blood Urea Nitrogen 24 mg/dL (8-26) Creatinine 2.3 mg/dL (0.7-1.3) Estimated GFR (Cockcroft-Gault) 32.9 Glucose Level 128 mg/dL (70-99) Calcium Level 8.4 mg/dL (8.5-10.1) Phosphorus Level 3.1 mg/dL (2.6-4.7) Magnesium Level 1.5 mg/dL (1.8-2.4) Albumin 2.6 g/dL (3.4-5.0) Test 01/29/17 11:45 Glucose (Fingerstick) 209 mg/dL (70-99) Microbiology 01/24/17 Urine Culture - Final, Complete 01/24/17 Urine Culture Result 1 (BREANNA) - Final, Complete Medication Medications Current Medications Insulin Detemir (Levemir) 40 units QHS SQ Last administered on 01/28/17 21:30 ; Start 01/28/17 at 21:00 Tamsulosin HCl (Flomax) 0.8 mg HS PO Last administered on 01/28/17 21:19; Start 01/28/17 at 21:00 Comment Review of Relevant I have reviewed the following items anthony (where applicable) has been applied. ALMA DELIA ZELAYA MD Jan 29, 2017 15:22
== END 2017-01-29 12:56 | disposition home or self-care (01) | DRG 682 ==
LOC: ER 11:31 → 5 SOUTH 14:13
PROVIDERS: ADMIT Internal Medicine; ATTEND Internal Medicine
DX: N17.0 Acute kidney failure with tubular necrosis (principal); G93.41 Metabolic encephalopathy; I13.2 Hypertensive heart and chronic kidney disease with heart failure and with stage 5 chronic kidney disease, or end stage renal disease; E46 Unspecified protein-calorie malnutrition; D69.6 Thrombocytopenia, unspecified; E11.22 Type 2 diabetes mellitus with diabetic chronic kidney disease; E11.40 Type 2 diabetes mellitus with diabetic neuropathy, unspecified; I50.32 Chronic diastolic (congestive) heart failure; N39.0 Urinary tract infection, site not specified; Z68.41 Body mass index [BMI] 40.0-44.9, adult; N18.6 End stage renal disease; F03.90 Unspecified dementia, unspecified severity, without behavioral disturbance, psychotic disturbance, mood disturbance, and anxiety; E11.649 Type 2 diabetes mellitus with hypoglycemia without coma; J44.9 Chronic obstructive pulmonary disease, unspecified; I25.10 Atherosclerotic heart disease of native coronary artery without angina pectoris; K21.9 Gastro-esophageal reflux disease without esophagitis; E78.00 Pure hypercholesterolemia, unspecified; E66.01 Morbid (severe) obesity due to excess calories; E78.5 Hyperlipidemia, unspecified; E83.51 Hypocalcemia; E86.0 Dehydration; G25.0 Essential tremor; D63.8 Anemia in other chronic diseases classified elsewhere; N40.0 Benign prostatic hyperplasia without lower urinary tract symptoms; H54.42 Blindness, left eye, normal vision right eye; T39.395A Adverse effect of other nonsteroidal anti-inflammatory drugs [NSAID], initial encounter; M19.90 Unspecified osteoarthritis, unspecified site; Z90.49 Acquired absence of other specified parts of digestive tract; Z82.49 Family history of ischemic heart disease and other diseases of the circulatory system; Z95.0 Presence of cardiac pacemaker; Z95.5 Presence of coronary angioplasty implant and graft
CPT/HCPCS: 36415; 51702; 70450; 71010; 71020; 76770; 80048; 80053; 80069; 81001; 82962; 83690; 83735; 83880; 84484; 85007; 85018; 85025; 85027; 87086; 93005; 93306; 94250; 94640; 94760; 95816; 96374; J1815; J1940; J7030; J7042; J7620; 97116; 97530; 97535; 99285-25

== ENCOUNTER → 2017-03-15 | Outpatient (CLI) | payer MEDICARE, OTHER ==
[2016-12-07 08:07] VITALS: BP_SYST 142
[2017-03-12 15:07] VITALS: BP_DIAS 68
[~2017-03-15] MED LIST changes: +EZET10TA26 PO; +GABA-586 PO; +HYDR-2758 PO; +INSU100V13 SQ; +LINA5TAB4 PO; +METO-239 PO; +METO-247 PO; -METO100T11 PO; +METO25TA4 PO; -METO25TA9 PO; -METO50TA10 PO; +METO50TA29 PO; +TRAM50TA PO; +[UNRECOGNIZED DRUG - CODE] PO
== END | disposition home or self-care (01) ==
LOC: PMGWOUND 10:55
PROVIDERS: ATTEND Preventive Medicine Undersea and Hyperbaric Medicine
DX: I87.313 Chronic venous hypertension (idiopathic) with ulcer of bilateral lower extremity (principal); E11.622 Type 2 diabetes mellitus with other skin ulcer; L97.221 Non-pressure chronic ulcer of left calf limited to breakdown of skin; L97.811 Non-pressure chronic ulcer of other part of right lower leg limited to breakdown of skin; I25.10 Atherosclerotic heart disease of native coronary artery without angina pectoris; J44.9 Chronic obstructive pulmonary disease, unspecified; E11.22 Type 2 diabetes mellitus with diabetic chronic kidney disease; I13.0 Hypertensive heart and chronic kidney disease with heart failure and stage 1 through stage 4 chronic kidney disease, or unspecified chronic kidney disease; N18.6 End stage renal disease; I50.32 Chronic diastolic (congestive) heart failure; E78.5 Hyperlipidemia, unspecified; E11.42 Type 2 diabetes mellitus with diabetic polyneuropathy; E11.21 Type 2 diabetes mellitus with diabetic nephropathy; I48.91 Unspecified atrial fibrillation; F03.90 Unspecified dementia, unspecified severity, without behavioral disturbance, psychotic disturbance, mood disturbance, and anxiety; E66.01 Morbid (severe) obesity due to excess calories; K21.9 Gastro-esophageal reflux disease without esophagitis; M19.90 Unspecified osteoarthritis, unspecified site; Z68.41 Body mass index [BMI] 40.0-44.9, adult; Z95.0 Presence of cardiac pacemaker; Z79.4 Long term (current) use of insulin; Z90.49 Acquired absence of other specified parts of digestive tract
CPT/HCPCS: 29581; 97597

== ENCOUNTER → 2017-03-22 | Outpatient (CLI) | payer MEDICARE, OTHER ==
[2017-03-12 15:07] VITALS: BP 142/68
== END | disposition home or self-care (01) ==
LOC: PMGWOUND 10:57
PROVIDERS: ATTEND Preventive Medicine Undersea and Hyperbaric Medicine
DX: I87.312 Chronic venous hypertension (idiopathic) with ulcer of left lower extremity (principal); L97.221 Non-pressure chronic ulcer of left calf limited to breakdown of skin; E11.622 Type 2 diabetes mellitus with other skin ulcer; E78.00 Pure hypercholesterolemia, unspecified; J44.9 Chronic obstructive pulmonary disease, unspecified; I11.0 Hypertensive heart disease with heart failure; I50.9 Heart failure, unspecified; Z95.0 Presence of cardiac pacemaker; Z87.891 Personal history of nicotine dependence
CPT/HCPCS: 29581; 97597; 97598

== ENCOUNTER → 2017-03-29 | Outpatient (CLI) | payer MEDICARE, OTHER ==
[2017-03-12 15:07] VITALS: BP 142/68
== END | disposition home or self-care (01) ==
LOC: PMGWOUND 09:54
PROVIDERS: ATTEND Preventive Medicine Undersea and Hyperbaric Medicine
DX: I87.312 Chronic venous hypertension (idiopathic) with ulcer of left lower extremity (principal); E11.622 Type 2 diabetes mellitus with other skin ulcer; L97.221 Non-pressure chronic ulcer of left calf limited to breakdown of skin; E78.00 Pure hypercholesterolemia, unspecified; J44.9 Chronic obstructive pulmonary disease, unspecified; I11.0 Hypertensive heart disease with heart failure; I50.9 Heart failure, unspecified; I25.2 Old myocardial infarction; Z86.73 Personal history of transient ischemic attack (TIA), and cerebral infarction without residual deficits; Z95.0 Presence of cardiac pacemaker; Z87.891 Personal history of nicotine dependence
CPT/HCPCS: 29581; 97597

== ENCOUNTER → 2017-04-05 | Outpatient (CLI) | payer MEDICARE, OTHER ==
[2017-03-12 15:07] VITALS: BP 142/68
== END | disposition home or self-care (01) ==
LOC: PMGWOUND 09:48
PROVIDERS: ATTEND Emergency Medicine Undersea and Hyperbaric Medicine
DX: I87.312 Chronic venous hypertension (idiopathic) with ulcer of left lower extremity (principal); L97.221 Non-pressure chronic ulcer of left calf limited to breakdown of skin; J44.9 Chronic obstructive pulmonary disease, unspecified; E11.22 Type 2 diabetes mellitus with diabetic chronic kidney disease; I13.2 Hypertensive heart and chronic kidney disease with heart failure and with stage 5 chronic kidney disease, or end stage renal disease; N18.6 End stage renal disease; I50.32 Chronic diastolic (congestive) heart failure; E78.00 Pure hypercholesterolemia, unspecified; E66.01 Morbid (severe) obesity due to excess calories; E11.42 Type 2 diabetes mellitus with diabetic polyneuropathy; E11.21 Type 2 diabetes mellitus with diabetic nephropathy; I48.91 Unspecified atrial fibrillation; M19.90 Unspecified osteoarthritis, unspecified site; K21.9 Gastro-esophageal reflux disease without esophagitis; Z86.73 Personal history of transient ischemic attack (TIA), and cerebral infarction without residual deficits; Z87.891 Personal history of nicotine dependence; Z79.4 Long term (current) use of insulin; Z99.2 Dependence on renal dialysis
CPT/HCPCS: 97597

== ENCOUNTER → 2017-04-12 | Outpatient (CLI) | payer MEDICARE, OTHER ==
[2017-03-12 15:07] VITALS: BP 142/68
== END | disposition home or self-care (01) ==
LOC: PMGWOUND 10:44
PROVIDERS: ATTEND Emergency Medicine Undersea and Hyperbaric Medicine
DX: I87.312 Chronic venous hypertension (idiopathic) with ulcer of left lower extremity (principal); E11.622 Type 2 diabetes mellitus with other skin ulcer; L97.221 Non-pressure chronic ulcer of left calf limited to breakdown of skin; L97.321 Non-pressure chronic ulcer of left ankle limited to breakdown of skin; J44.9 Chronic obstructive pulmonary disease, unspecified; K21.9 Gastro-esophageal reflux disease without esophagitis; E11.22 Type 2 diabetes mellitus with diabetic chronic kidney disease; I13.2 Hypertensive heart and chronic kidney disease with heart failure and with stage 5 chronic kidney disease, or end stage renal disease; N18.6 End stage renal disease; I50.32 Chronic diastolic (congestive) heart failure; E11.21 Type 2 diabetes mellitus with diabetic nephropathy; E11.42 Type 2 diabetes mellitus with diabetic polyneuropathy; M19.90 Unspecified osteoarthritis, unspecified site; I48.91 Unspecified atrial fibrillation; I25.2 Old myocardial infarction; I25.10 Atherosclerotic heart disease of native coronary artery without angina pectoris; E78.5 Hyperlipidemia, unspecified; E66.01 Morbid (severe) obesity due to excess calories; F03.90 Unspecified dementia, unspecified severity, without behavioral disturbance, psychotic disturbance, mood disturbance, and anxiety; Z90.49 Acquired absence of other specified parts of digestive tract; Z86.73 Personal history of transient ischemic attack (TIA), and cerebral infarction without residual deficits; Z87.891 Personal history of nicotine dependence; Z99.2 Dependence on renal dialysis; Z79.4 Long term (current) use of insulin
CPT/HCPCS: 29581; 97597

== ENCOUNTER 2017-05-03 11:18 | Inpatient (IN) | payer MEDICARE, OTHER ==
[~2017-05-03] VITALS: Ht 175.3 cm; Wt 130.3 kg
[2017-05-03 12:29] LABS: CALCIUM 9.4 mg/dL (8.5-10.1); GFR 38.5; POTASSIUM 3.4 mmol/L (3.5-5.1)
[2017-05-03 12:36] LABS: ALBUMIN 3.3 g/dL (3.4-5.0); ALBUMIN/GLOBULIN RATIO 0.6 (1.0-1.7); BASO # 0.1 x10^3/uL (0.0-0.2); BASO % 1 % (0-3); EOS % 0 % (0-3); HEMATOCRIT 34.9 % (39.0-53.0); LYMPH # 1.5 x10^3/uL (1.0-4.8); LYMPH % 11 % (24-48); MEAN CORPUSCULAR HEMOGLOBIN 32 pg (25-35); MEAN CORPUSCULAR HGB CONC 32 g/dL (31-37); MEAN CORPUSCULAR VOLUME 101 fL (79-100); MONO % 13 % (0-9); NEUT % 75 % (31-73); PLATELET COUNT 154 x10^3/uL (140-400); RED BLOOD COUNT 3.45 x10^6/uL (4.30-5.70); RED CELL DISTRIBUTION WIDTH 14.5 % (11.5-14.5); TOTAL BILIRUBIN 0.4 mg/dL (0.2-1.0); TOTAL PROTEIN 8.4 g/dL (6.4-8.2); WHITE BLOOD COUNT 14.1 x10^3/uL (4.0-11.0)
[2017-05-03 12:38] LABS: OBC FLU VALID
[2017-05-03 12:42] LABS: BILIRUBIN,URINE NEGATIVE (NEG); GLUCOSE,URINE NEGATIVE (NEG); NITRITE,URINE NEGATIVE (NEG); PROTEIN,URINE 30 mg/dL (NEG-TRACE)
[2017-05-03 13:03] LABS: BACTERIA,URINE 0 /HPF (0-FEW); RBC,URINE 0 /HPF (0-2); SQUAMOUS EPITHELIAL CELL,UR OCC /LPF; WBC,URINE >40 /HPF (0-4)
--- NOTE | 2017-05-03 14:15 | RAD ---
Portable chest, 05/03/2017: History: Fever, chills, weakness Comparison is made to a study from 04/14/2017. A left-sided transvenous pacemaker remains in place with 2 leads extending into the heart. The heart is at the upper limits of normal in size. The pulmonary vascularity is normal. No pulmonary infiltrates are seen. There is no evidence of pleural fluid. IMPRESSION: No acute cardiopulmonary abnormality is detected.
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
[2017-05-03] MEDS ORDERED: MORPHINE SULFATE 4 MG/ML DISP.SYRIN. IV PRN (15:15)
[2017-05-03] MEDS: IV NORMAL SALINE 1000ML BAG 1,000 ML IV SCH (16:57)
[2017-05-03 19:00] VITALS: BP 147/97
[2017-05-03] MEDS ORDERED: PIP/TAZO PER PHARMACY MC PRN (19:00)
[2017-05-03] MEDS ORDERED: hydrALAZINE 20 MG/ML VIAL. IVP PRN (19:00)
[2017-05-03] MEDS ORDERED: ONDANSETRON PF 4 MG/2 ML VIAL. IV PRN (19:00)
[2017-05-03] MEDS ORDERED: DEXTROSE 50% 25 GM / 50ML DISP.SYRIN. IV PRN (19:00)
[2017-05-03] MEDS: VANCOMYCIN PER PHARMACY MC PRN (19:19)
[2017-05-03 19:20] VITALS: BP 159/58
[2017-05-03] MEDS ORDERED: VANCOMYCIN 1.75 GM in IV DEXTROSE 5% 500 ML IV SCH (20:00)
[2017-05-03] MEDS: IPRATRPIUM/ALBUTEROL 0.5/2.5MG 3 ML NEBU. NEB SCH (20:45)
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
[2017-05-03] MEDS ORDERED: NON FORMULARY ITEM (Ipratropium/Albuterol Sulfate (Combivent Respimat Inhal) 2 INH) IH SCH (21:00)
[2017-05-03] MEDS: LATANOPROST 0.005% OPHTH SOLUTION 2.5ML BOTTLE. OU SCH (21:00)
[2017-05-03] MEDS: PIPERACILLIN/TAZO IV Push 3.375 GM VIAL. IVP SCH (21:18)
[2017-05-03] MEDS: DORZOLAMIDE 2% OPHTH SOLUTION 10ML BOTTLE. OU SCH (21:19)
[2017-05-03] MEDS: PRIMIDONE 50 MG TABLET PO SCH (21:19)
[2017-05-03] MEDS: NIACIN ER 500 MG TABLET.ER PO SCH (21:19)
[2017-05-03] MEDS: GABAPENTIN 300 MG CAPSULE. PO SCH (21:20)
[2017-05-03] MEDS: METOPROLOL TART IMMED RELEASE 50 MG TABLET. PO SCH (21:20)
[2017-05-03] MEDS: ATORVASTATIN CALCIUM 20 MG TABLET PO SCH (21:20)
[2017-05-03] MEDS: INSULIN DETEMIR 300 UNITS/3 ML INSULN.PEN. SQ SCH (21:25)
[2017-05-03 23:00] VITALS: BP 137/62
[2017-05-04 03:00] VITALS: BP 153/112
[2017-05-04 04:49] LABS: BASO % 0 % (0-3); EOS % 1 % (0-3); HEMOGLOBIN 10.6 g/dL (13.0-17.5); LYMPH # 1.5 x10^3/uL (1.0-4.8); LYMPH % 16 % (24-48); MEAN CORPUSCULAR HEMOGLOBIN 32 pg (25-35); MEAN CORPUSCULAR HGB CONC 32 g/dL (31-37); MEAN CORPUSCULAR VOLUME 101 fL (79-100); MONO % 17 % (0-9); NEUT % 66 % (31-73); PLATELET COUNT 131 x10^3/uL (140-400); RED BLOOD COUNT 3.27 x10^6/uL (4.30-5.70); RED CELL DISTRIBUTION WIDTH 14.5 % (11.5-14.5); WHITE BLOOD COUNT 9.6 x10^3/uL (4.0-11.0)
[2017-05-04 05:07] LABS: CALCIUM 8.7 mg/dL (8.5-10.1); CREATININE 1.9 mg/dL (0.7-1.3); GFR 40.9; POTASSIUM 4.1 mmol/L (3.5-5.1)
[2017-05-04] MEDS: PIPERACILLIN/TAZO IV Push 3.375 GM VIAL. IVP SCH ×4 (06:23→23:31)
[2017-05-04 07:00] VITALS: BP 154/73
[2017-05-04] MEDS: IPRATRPIUM/ALBUTEROL 0.5/2.5MG 3 ML NEBU. NEB SCH ×4 (07:22→19:37)
[2017-05-04] MEDS: INSULIN ASPART 300 UNITS/3 ML INSULN.PEN SQ SCH ×6 (07:30→17:16)
[2017-05-04] MEDS: IV NORMAL SALINE 1000ML BAG 1,000 ML IV SCH (08:53)
[2017-05-04] MEDS: FUROSEMIDE 80 MG TABLET. PO SCH (08:55)
[2017-05-04] MEDS: GABAPENTIN 300 MG CAPSULE. PO SCH ×2 (08:55→20:35)
[2017-05-04] MEDS: METOPROLOL TART IMMED RELEASE 50 MG TABLET. PO SCH ×2 (08:56→20:41)
[2017-05-04] MEDS: ASPIRIN ENTERIC COATED 81 MG TABLET.DR. PO SCH (08:56)
[2017-05-04] MEDS: LINAGLIPTIN 5 MG TABLET PO SCH (08:56)
[2017-05-04] MEDS: PANTOPRAZOLE 40 MG TABLET.DR. PO SCH (08:56)
[2017-05-04] MEDS: DORZOLAMIDE 2% OPHTH SOLUTION 10ML BOTTLE. OU SCH ×3 (08:56→20:32)
[2017-05-04] MEDS ORDERED: NIACIN 1000 MG PO SCH (09:00)
[2017-05-04] MEDS ORDERED: SITAGLIPTIN PHOSPHATE 25 MG PO SCH (09:00)
[2017-05-04] MEDS: VANCOMYCIN PER PHARMACY MC PRN (09:07)
[2017-05-04 11:00] VITALS: BP 182/89
--- NOTE | 2017-05-04 13:22 | PDOC2 ---
CONSULT Date of Consult Date of Consult DATE: 05/04/17 TIME: 13:19 Reason for Consult Reason for Consult: [place]/long standing DM/possible sepsis Past Medical History Cardiovascular: CAD, CHF, HTN, Hyperlipidemia, Other Pulmonary: COPD, Other CENTRAL NERVOUS SYSTEM: Dementia, Vertigo GI: GERD, Other Heme/Onc: Anemia NOS Hepatobiliary: No pertinent hx Psych: No pertinent hx Rheumatologic: No pertinent hx Infectious disease: No pertinent hx Renal/: Chronic renal insuff, Benign prostatic enlarg. Endocrine: Diabetes Past Surgical History Past Surgical History: Pacemaker, Cholecystectomy, Other Family History Family History: Cancer, Heart Disease Social History ALCOHOL: none Drugs: None Lives: Alone Domestic Violence: Neg Current Problem List Problem List Problems Medical Problems: (1) Generalized weakness Status: Acute (2) Urinary tract infection Status: Acute Current Medications Current Medications Current Medications Levofloxacin/ Dextrose 100 ml @ 100 mls/hr 1X ONCE IV Last administered on 14:54; Start 05/03/17 at 14:30; Stop 05/03/17 at 15:29; Status DC Morphine Sulfate 2 mg PRN Q2HR PRN IV PAIN Last administered on 05/03/17 16: 57; Start 05/03/17 at 15:15; Stop 05/04/17 at 15:14 Sodium Chloride 1,000 ml @ 75 mls/hr [id number] IV Last administered on 08:53; Start 05/03/17 at 15:03; Stop 05/04/17 at 15:02 Vancomycin HCl (Vanco Per Pharmacy) 1 each PRN DAILY PRN MC SEE COMMENTS Last administered on 05/04/17 09:07; Start 05/03/17 at 19:00 Piperacillin Sod/ Tazobactam Sod (Zosyn Per Pharmacy) 1 each PRN DAILY PRN MC SEE COMMENTS; Start 05/03/17 at 19:00 Hydralazine HCl (Apresoline Inj) 10 mg PRN Q4HRS PRN IVP ELEVATED BP, SEE COMMENTS; Start 05/03/17 at 19:00 Vancomycin HCl 1.75 gm/Dextrose 500 ml @ 250 mls/hr Q24H IV Last administered on 05/03/17 21:18; Start 05/03/17 at 20:00 Vancomycin HCl 1 each 1X ONCE MC ; Start 05/05/17 at 19:30; Stop 05/05/17 at 19:31 Piperacillin Sod/ Tazobactam Sod (Zosyn) 3.375 gm Q6HRS IVP Last administered on 05/04/17 06:23; Start 05/03/17 at 21:00 Aspirin (Ecotrin) 81 mg DAILY PO Last administered on 05/04/17 08:56; Start 05/04/17 at 09:00 Atorvastatin Calcium (Lipitor) 20 mg HS PO Last administered on 05/03/17 21: 20; Start 05/03/17 at 21:00 Furosemide (Lasix) 80 mg DAILY PO Last administered on 05/04/17 08:55; Start 05/04/17 at 09:00 Acetaminophen/ Hydrocodone Bitart (Lortab 5/325) 1 tab PRN Q6HRS PRN PO PAIN; Start 05/03/17 at 19:00 Linagliptin (Tradjenta) 5 mg DAILY PO Last administered on 05/04/17 08:56; Start 05/04/17 at 09:00 Niacin (Slo-Niacin) 1,000 mg HS PO Last administered on 05/03/17 21:19; Start 05/03/17 at 21:00 Pantoprazole Sodium (Protonix) 40 mg DAILYAC PO Last administered on 08:56; Start 05/04/17 at 07:30 Primidone (Mysoline) 200 mg HS PO Last administered on 05/03/17 21:19; Start 05/03/17 at 21:00 Tramadol HCl (Ultram) 50 mg PRN Q6HRS PRN PO PAIN; Start 05/03/17 at 19:00 Dorzolamide HCl (Trusopt) 1 drop TID OU Last administered on 05/04/17 08:56; Start 05/03/17 at 21:00 Gabapentin (Neurontin) 300 mg BID PO Last administered on 05/04/17 08:55; Start 05/03/17 at 21:00 Insulin Detemir (Levemir) 40 units QHS SQ Last administered on 05/03/17 21:25 ; Start 05/03/17 at 21:00 Insulin Aspart (NovoLOG) 35 units TIDAC SQ ; Start 05/04/17 at 07:30 Non-Formulary Medication 2 inh QID IH ; Start 05/03/17 at 21:00; Status UNV Non-Formulary Medication 1,000 mg DAILY PO ; Start 05/04/17 at 09:00; Status UNV Non-Formulary Medication 25 mg DAILY PO ; Start 05/04/17 at 09:00; Status UNV Latanoprost (Xalatan) 1 drop QHS OU Last administered on 05/03/17 21:00; Start 05/03/17 at 21:00 Metoprolol Tartrate (Lopressor) 100 mg BID PO Last administered on 05/04/17 08:56; Start 05/03/17 at 21:00 Ondansetron HCl (Zofran) 4 mg PRN Q6HRS PRN IV NAUSEA/VOMITING Last administered on 05/03/17 19:14; Start 05/03/17 at 19:00 Insulin Aspart (NovoLOG) 0-5 UNITS TIDWMEALS SQ Last administered on 11:54; Start 05/04/17 at 08:00 Dextrose (Dextrose 50%-Water Syringe) 12.5 gm PRN Q15MIN PRN IV SEE COMMENTS; Start 05/03/17 at 19:00 Albuterol/ Ipratropium (Duoneb) 3 ml RTQID NEB Last administered on 05/04/17 11:11; Start 05/03/17 at 20:00 Lactobacillus Rhamnosus (Culturelle) 1 cap BID PO ; Start 05/04/17 at 21:00 Active Scripts Active Levemir (Insulin Detemir) 100 Unit/1 Ml Vial 40 Unit SQ QHS 30 Days Gabapentin 300 Mg Capsule 300 Mg PO BID 30 Days Reported Hydrocodone-Apap 5-325 (Hydrocodone Bit/Acetaminophen) 1 Each Tablet 1 Tab PO PRN Q6HRS PRN Niacin Er (Niacin) 1,000 Mg Tab.er.24h 1,000 Mg PO DAILY Tramadol Hcl 50 Mg Tablet 50 Mg PO PRN Q6HRS PRN Furosemide 80 Mg Tablet 80 Mg PO DAILY Tradjenta (Linagliptin) 5 Mg Tablet 5 Mg PO DAILY Humalog (Insulin Lispro) 100 Unit/1 Ml Insuln.pen 35 Units SQ TIDAC Combivent Respimat Inhal (Ipratropium/Albuterol Sulfate) 4 Gm Aer.w.adap 2 Inh IH QID Januvia (Sitagliptin Phosphate) 50 Mg Tablet 25 Mg PO DAILY Metoprolol Tartrate 100 Mg Tablet 1 Tab PO BID Niaspan (Niacin) 500 Mg Tab.er.24h 1,000 Mg PO HS Travatan Z (Travoprost) 5 Ml Drops 1 Drop EACHEYE QHS Primidone 50 Mg Tablet 200 Mg PO HS Pantoprazole Sodium 40 Mg Tablet.dr 1 Tab PO DAILY Lipitor (Atorvastatin Calcium) 20 Mg Tablet 20 Mg PO HS Azopt (Brinzolamide) 10 Ml Drops.susp 10 Ml OP BID PRN Ecotrin (Aspirin) 81 Mg Tablet. 81 Mg PO DAILY Allergies Allergies: Coded Allergies: No Known Drug Allergies (Unverified , 08/02/13) Vitals VITALS Vital Signs Date Time Temp Pulse Resp B/P (MAP) Pulse Ox O2 Delivery O2 Flow Rate FiO2 05/04/17 11:11 94 Room Air 05/04/17 11:00 98.1 68 19 182/89 (120) 98.1 05/03/17 23:00 10.0 Labs Labs Laboratory Tests Test 05/03/17 11:58 05/03/17 12:32 05/03/17 16:54 05/03/17 20:53 White Blood Count 14.1 x10^3/uL (4.0-11.0) Red Blood Count 3.45 x10^6/uL (4.30-5.70) Hemoglobin 11.0 g/dL (13.0-17.5) Hematocrit 34.9 % (39.0-53.0) Mean Corpuscular Volume 101 fL (79-100) Mean Corpuscular Hemoglobin 32 pg (25-35) Mean Corpuscular Hemoglobin Concent 32 g/dL (31-37) Red Cell Distribution Width 14.5 % (11.5-14.5) Platelet Count 154 x10^3/uL (140-400) Neutrophils (%) (Auto) 75 % (31-73) Lymphocytes (%) (Auto) 11 % (24-48) Monocytes (%) (Auto) 13 % (0-9) Eosinophils (%) (Auto) 0 % (0-3) Basophils (%) (Auto) 1 % (0-3) Neutrophils # (Auto) 10.6 x10^3uL (1.8-7.7) Lymphocytes # (Auto) 1.5 x10^3/uL (1.0-4.8) Monocytes # (Auto) 1.8 x10^3/uL (0.0-1.1) Eosinophils # (Auto) 0.1 x10^3/uL (0.0-0.7) Basophils # (Auto) 0.1 x10^3/uL (0.0-0.2) Sodium Level 141 mmol/L (136-145) Potassium Level 3.4 mmol/L (3.5-5.1) Chloride Level 103 mmol/L (98-107) Carbon Dioxide Level 30 mmol/L (21-32) Anion Gap 8 (6-14) Blood Urea Nitrogen 36 mg/dL (8-26) Creatinine 2.0 mg/dL (0.7-1.3) Estimated GFR (Cockcroft-Gault) 38.5 BUN/Creatinine Ratio 18 (6-20) Glucose Level 127 mg/dL (70-99) Lactic Acid Level 1.4 mmol/L (0.4-2.0) Calcium Level 9.4 mg/dL (8.5-10.1) Total Bilirubin 0.4 mg/dL (0.2-1.0) Aspartate Amino Transf (AST/SGOT) 17 U/L (15-37) Alanine Aminotransferase (ALT/SGPT) 20 U/L (16-63) Alkaline Phosphatase 64 U/L (46-116) C-Reactive Protein, Quantitative 45.1 mg/L (0-3.3) Total Protein 8.4 g/dL (6.4-8.2) Albumin 3.3 g/dL (3.4-5.0) Albumin/Globulin Ratio 0.6 (1.0-1.7) Influenza Type A Antigen Negative (NEGATIVE) Influenza Type B Antigen Negative (NEGATIVE) Urine Collection Type Unknown Urine Color Yellow Urine Clarity Clear Urine pH 7.0 Urine Specific [place] 1.015 Urine Protein 30 mg/dL (NEG-TRACE) Urine Glucose (UA) Negative mg/dL (NEG) Urine Ketones (Stick) Negative mg/dL (NEG) Urine Blood Trace (NEG) Urine Nitrite Negative (NEG) Urine Bilirubin Negative (NEG) Urine Urobilinogen Dipstick 1.0 mg/dL (0.2 mg/dL) Urine Leukocyte Esterase Moderate (NEG) Urine RBC 0 /HPF (0-2) Urine WBC >40 /HPF (0-4) Urine Squamous Epithelial Cells Occ /LPF Urine Bacteria 0 /HPF (0-FEW) Glucose (Fingerstick) 137 mg/dL (70-99) 200 mg/dL (70-99) Test 05/04/17 03:40 05/04/17 08:00 05/04/17 11:34 White Blood Count 9.6 x10^3/uL (4.0-11.0) Red Blood Count 3.27 x10^6/uL (4.30-5.70) Hemoglobin 10.6 g/dL (13.0-17.5) Hematocrit 33.0 % (39.0-53.0) Mean Corpuscular Volume 101 fL (79-100) Mean Corpuscular Hemoglobin 32 pg (25-35) Mean Corpuscular Hemoglobin Concent 32 g/dL (31-37) Red Cell Distribution Width 14.5 % (11.5-14.5) Platelet Count 131 x10^3/uL (140-400) Neutrophils (%) (Auto) 66 % (31-73) Lymphocytes (%) (Auto) 16 % (24-48) Monocytes (%) (Auto) 17 % (0-9) Eosinophils (%) (Auto) 1 % (0-3) Basophils (%) (Auto) 0 % (0-3) Neutrophils # (Auto) 6.3 x10^3uL (1.8-7.7) Lymphocytes # (Auto) 1.5 x10^3/uL (1.0-4.8) Monocytes # (Auto) 1.6 x10^3/uL (0.0-1.1) Eosinophils # (Auto) 0.1 x10^3/uL (0.0-0.7) Basophils # (Auto) 0.0 x10^3/uL (0.0-0.2) Sodium Level 140 mmol/L (136-145) Potassium Level 4.1 mmol/L (3.5-5.1) Chloride Level 104 mmol/L (98-107) Carbon Dioxide Level 29 mmol/L (21-32) Anion Gap 7 (6-14) Blood Urea Nitrogen 32 mg/dL (8-26) Creatinine 1.9 mg/dL (0.7-1.3) Estimated GFR (Cockcroft-Gault) 40.9 Glucose Level 201 mg/dL (70-99) Calcium Level 8.7 mg/dL (8.5-10.1) Glucose (Fingerstick) 187 mg/dL (70-99) 212 mg/dL (70-99) Laboratory Tests Test 05/03/17 16:54 05/03/17 20:53 05/04/17 03:40 05/04/17 08:00 Glucose (Fingerstick) 137 mg/dL (70-99) 200 mg/dL (70-99) 187 mg/dL (70-99) White Blood Count 9.6 x10^3/uL (4.0-11.0) Red Blood Count 3.27 x10^6/uL (4.30-5.70) Hemoglobin 10.6 g/dL (13.0-17.5) Hematocrit 33.0 % (39.0-53.0) Mean Corpuscular Volume 101 fL (79-100) Mean Corpuscular Hemoglobin 32 pg (25-35) Mean Corpuscular Hemoglobin Concent 32 g/dL (31-37) Red Cell Distribution Width 14.5 % (11.5-14.5) Platelet Count 131 x10^3/uL (140-400) Neutrophils (%) (Auto) 66 % (31-73) Lymphocytes (%) (Auto) 16 % (24-48) Monocytes (%) (Auto) 17 % (0-9) Eosinophils (%) (Auto) 1 % (0-3) Basophils (%) (Auto) 0 % (0-3) Neutrophils # (Auto) 6.3 x10^3uL (1.8-7.7) Lymphocytes # (Auto) 1.5 x10^3/uL (1.0-4.8) Monocytes # (Auto) 1.6 x10^3/uL (0.0-1.1) Eosinophils # (Auto) 0.1 x10^3/uL (0.0-0.7) Basophils # (Auto) 0.0 x10^3/uL (0.0-0.2) Sodium Level 140 mmol/L (136-145) Potassium Level 4.1 mmol/L (3.5-5.1) Chloride Level 104 mmol/L (98-107) Carbon Dioxide Level 29 mmol/L (21-32) Anion Gap 7 (6-14) Blood Urea Nitrogen 32 mg/dL (8-26) Creatinine 1.9 mg/dL (0.7-1.3) Estimated GFR (Cockcroft-Gault) 40.9 Glucose Level 201 mg/dL (70-99) Calcium Level 8.7 mg/dL (8.5-10.1) Test 05/04/17 11:34 Glucose (Fingerstick) 212 mg/dL (70-99) Assessment/Plan Assessment/Plan Nausea- with DM, most likely multifactorial in etiology. Medical therpay with antiemetics. Cardiac workup if symptoms persist for IW ischemia. Anemia- most likely chronic disease, await iron indices and other heme parameters PAPITO STEELE MD May 04, 2017 13:22
[2017-05-04 14:16] LABS: % SAT IRON 26 % (15-34); IRON,SERUM 48 ug/dL (65-175)
--- NOTE | 2017-05-04 14:19 | PDOC ---
PROGRESS NOTES Chief Complaint Chief Complaint fevers - SIRS, abx started but unsure if any infection foot wound appears clearn CKD 3, Anemia of CKD Dm2, in morbid obesity, BMI 44 weakness , acquired nausea and vomiting and abominal pain, improving, chronic diastolic CHF Vitals Vitals Vital Signs Date Time Temp Pulse Resp B/P (MAP) Pulse Ox O2 Delivery O2 Flow Rate FiO2 05/04/17 13:33 68 182/89 05/04/17 11:11 94 Room Air 05/04/17 11:00 98.1 19 98.1 05/03/17 23:00 10.0 Physical Exam General: Alert, Cooperative, No acute distress, moderate distress Heart: Regular rate Lungs: Clear Abdomen: Soft Extremities: No clubbing Skin: No rashes, No breakdown Labs LABS Laboratory Tests Test 05/03/17 16:54 05/03/17 20:53 05/04/17 03:40 05/04/17 08:00 Glucose (Fingerstick) 137 mg/dL (70-99) 200 mg/dL (70-99) 187 mg/dL (70-99) White Blood Count 9.6 x10^3/uL (4.0-11.0) Red Blood Count 3.27 x10^6/uL (4.30-5.70) Hemoglobin 10.6 g/dL (13.0-17.5) Hematocrit 33.0 % (39.0-53.0) Mean Corpuscular Volume 101 fL (79-100) Mean Corpuscular Hemoglobin 32 pg (25-35) Mean Corpuscular Hemoglobin Concent 32 g/dL (31-37) Red Cell Distribution Width 14.5 % (11.5-14.5) Platelet Count 131 x10^3/uL (140-400) Neutrophils (%) (Auto) 66 % (31-73) Lymphocytes (%) (Auto) 16 % (24-48) Monocytes (%) (Auto) 17 % (0-9) Eosinophils (%) (Auto) 1 % (0-3) Basophils (%) (Auto) 0 % (0-3) Neutrophils # (Auto) 6.3 x10^3uL (1.8-7.7) Lymphocytes # (Auto) 1.5 x10^3/uL (1.0-4.8) Monocytes # (Auto) 1.6 x10^3/uL (0.0-1.1) Eosinophils # (Auto) 0.1 x10^3/uL (0.0-0.7) Basophils # (Auto) 0.0 x10^3/uL (0.0-0.2) Sodium Level 140 mmol/L (136-145) Potassium Level 4.1 mmol/L (3.5-5.1) Chloride Level 104 mmol/L (98-107) Carbon Dioxide Level 29 mmol/L (21-32) Anion Gap 7 (6-14) Blood Urea Nitrogen 32 mg/dL (8-26) Creatinine 1.9 mg/dL (0.7-1.3) Estimated GFR (Cockcroft-Gault) 40.9 Glucose Level 201 mg/dL (70-99) Calcium Level 8.7 mg/dL (8.5-10.1) Test 05/04/17 11:34 Glucose (Fingerstick) 212 mg/dL (70-99) Review of Systems Review of Systems feels improved no n.v.d some minimal pain with palpation to abdomen Assessment and Plan Assessmemt and Plan Problems Medical Problems: (1) Generalized weakness Status: Acute (2) Urinary tract infection Status: Acute Problems: Comment Review of Relevant I have reviewed the following items anthony (where applicable) has been applied. Labs Laboratory Tests Test 05/03/17 11:58 05/03/17 12:32 05/03/17 16:54 05/03/17 20:53 White Blood Count 14.1 x10^3/uL (4.0-11.0) Red Blood Count 3.45 x10^6/uL (4.30-5.70) Hemoglobin 11.0 g/dL (13.0-17.5) Hematocrit 34.9 % (39.0-53.0) Mean Corpuscular Volume 101 fL (79-100) Mean Corpuscular Hemoglobin 32 pg (25-35) Mean Corpuscular Hemoglobin Concent 32 g/dL (31-37) Red Cell Distribution Width 14.5 % (11.5-14.5) Platelet Count 154 x10^3/uL (140-400) Neutrophils (%) (Auto) 75 % (31-73) Lymphocytes (%) (Auto) 11 % (24-48) Monocytes (%) (Auto) 13 % (0-9) Eosinophils (%) (Auto) 0 % (0-3) Basophils (%) (Auto) 1 % (0-3) Neutrophils # (Auto) 10.6 x10^3uL (1.8-7.7) Lymphocytes # (Auto) 1.5 x10^3/uL (1.0-4.8) Monocytes # (Auto) 1.8 x10^3/uL (0.0-1.1) Eosinophils # (Auto) 0.1 x10^3/uL (0.0-0.7) Basophils # (Auto) 0.1 x10^3/uL (0.0-0.2) Sodium Level 141 mmol/L (136-145) Potassium Level 3.4 mmol/L (3.5-5.1) Chloride Level 103 mmol/L (98-107) Carbon Dioxide Level 30 mmol/L (21-32) Anion Gap 8 (6-14) Blood Urea Nitrogen 36 mg/dL (8-26) Creatinine 2.0 mg/dL (0.7-1.3) Estimated GFR (Cockcroft-Gault) 38.5 BUN/Creatinine Ratio 18 (6-20) Glucose Level 127 mg/dL (70-99) Lactic Acid Level 1.4 mmol/L (0.4-2.0) Calcium Level 9.4 mg/dL (8.5-10.1) Total Bilirubin 0.4 mg/dL (0.2-1.0) Aspartate Amino Transf (AST/SGOT) 17 U/L (15-37) Alanine Aminotransferase (ALT/SGPT) 20 U/L (16-63) Alkaline Phosphatase 64 U/L (46-116) C-Reactive Protein, Quantitative 45.1 mg/L (0-3.3) Total Protein 8.4 g/dL (6.4-8.2) Albumin 3.3 g/dL (3.4-5.0) Albumin/Globulin Ratio 0.6 (1.0-1.7) Influenza Type A Antigen Negative (NEGATIVE) Influenza Type B Antigen Negative (NEGATIVE) Urine Collection Type Unknown Urine Color Yellow Urine Clarity Clear Urine pH 7.0 Urine Specific Mcdonough 1.015 Urine Protein 30 mg/dL (NEG-TRACE) Urine Glucose (UA) Negative mg/dL (NEG) Urine Ketones (Stick) Negative mg/dL (NEG) Urine Blood Trace (NEG) Urine Nitrite Negative (NEG) Urine Bilirubin Negative (NEG) Urine Urobilinogen Dipstick 1.0 mg/dL (0.2 mg/dL) Urine Leukocyte Esterase Moderate (NEG) Urine RBC 0 /HPF (0-2) Urine WBC >40 /HPF (0-4) Urine Squamous Epithelial Cells Occ /LPF Urine Bacteria 0 /HPF (0-FEW) Glucose (Fingerstick) 137 mg/dL (70-99) 200 mg/dL (70-99) Test 05/04/17 03:40 05/04/17 08:00 05/04/17 11:34 White Blood Count 9.6 x10^3/uL (4.0-11.0) Red Blood Count 3.27 x10^6/uL (4.30-5.70) Hemoglobin 10.6 g/dL (13.0-17.5) Hematocrit 33.0 % (39.0-53.0) Mean Corpuscular Volume 101 fL (79-100) Mean Corpuscular Hemoglobin 32 pg (25-35) Mean Corpuscular Hemoglobin Concent 32 g/dL (31-37) Red Cell Distribution Width 14.5 % (11.5-14.5) Platelet Count 131 x10^3/uL (140-400) Neutrophils (%) (Auto) 66 % (31-73) Lymphocytes (%) (Auto) 16 % (24-48) Monocytes (%) (Auto) 17 % (0-9) Eosinophils (%) (Auto) 1 % (0-3) Basophils (%) (Auto) 0 % (0-3) Neutrophils # (Auto) 6.3 x10^3uL (1.8-7.7) Lymphocytes # (Auto) 1.5 x10^3/uL (1.0-4.8) Monocytes # (Auto) 1.6 x10^3/uL (0.0-1.1) Eosinophils # (Auto) 0.1 x10^3/uL (0.0-0.7) Basophils # (Auto) 0.0 x10^3/uL (0.0-0.2) Sodium Level 140 mmol/L (136-145) Potassium Level 4.1 mmol/L (3.5-5.1) Chloride Level 104 mmol/L (98-107) Carbon Dioxide Level 29 mmol/L (21-32) Anion Gap 7 (6-14) Blood Urea Nitrogen 32 mg/dL (8-26) Creatinine 1.9 mg/dL (0.7-1.3) Estimated GFR (Cockcroft-Gault) 40.9 Glucose Level 201 mg/dL (70-99) Calcium Level 8.7 mg/dL (8.5-10.1) Glucose (Fingerstick) 187 mg/dL (70-99) 212 mg/dL (70-99) Laboratory Tests Test 05/03/17 16:54 05/03/17 20:53 05/04/17 03:40 05/04/17 08:00 Glucose (Fingerstick) 137 mg/dL (70-99) 200 mg/dL (70-99) 187 mg/dL (70-99) White Blood Count 9.6 x10^3/uL (4.0-11.0) Red Blood Count 3.27 x10^6/uL (4.30-5.70) Hemoglobin 10.6 g/dL (13.0-17.5) Hematocrit 33.0 % (39.0-53.0) Mean Corpuscular Volume 101 fL (79-100) Mean Corpuscular Hemoglobin 32 pg (25-35) Mean Corpuscular Hemoglobin Concent 32 g/dL (31-37) Red Cell Distribution Width 14.5 % (11.5-14.5) Platelet Count 131 x10^3/uL (140-400) Neutrophils (%) (Auto) 66 % (31-73) Lymphocytes (%) (Auto) 16 % (24-48) Monocytes (%) (Auto) 17 % (0-9) Eosinophils (%) (Auto) 1 % (0-3) Basophils (%) (Auto) 0 % (0-3) Neutrophils # (Auto) 6.3 x10^3uL (1.8-7.7) Lymphocytes # (Auto) 1.5 x10^3/uL (1.0-4.8) Monocytes # (Auto) 1.6 x10^3/uL (0.0-1.1) Eosinophils # (Auto) 0.1 x10^3/uL (0.0-0.7) Basophils # (Auto) 0.0 x10^3/uL (0.0-0.2) Sodium Level 140 mmol/L (136-145) Potassium Level 4.1 mmol/L (3.5-5.1) Chloride Level 104 mmol/L (98-107) Carbon Dioxide Level 29 mmol/L (21-32) Anion Gap 7 (6-14) Blood Urea Nitrogen 32 mg/dL (8-26) Creatinine 1.9 mg/dL (0.7-1.3) Estimated GFR (Cockcroft-Gault) 40.9 Glucose Level 201 mg/dL (70-99) Calcium Level 8.7 mg/dL (8.5-10.1) Test 05/04/17 11:34 Glucose (Fingerstick) 212 mg/dL (70-99) Microbiology 05/03/17 Blood Culture - Preliminary, Resulted NO GROWTH AFTER 1 DAY 05/03/17 Urine Culture - Preliminary, Resulted 05/03/17 Urine Culture Result 1 (BREANNA) - Preliminary, Resulted Medications Current Medications Levofloxacin/ Dextrose 100 ml @ 100 mls/hr 1X ONCE IV Last administered on 14:54; Start 05/03/17 at 14:30; Stop 05/03/17 at 15:29; Status DC Morphine Sulfate 2 mg PRN Q2HR PRN IV PAIN Last administered on 05/03/17 16: 57; Start 05/03/17 at 15:15; Stop 05/04/17 at 15:14 Sodium Chloride 1,000 ml @ 75 mls/hr [id number] IV Last administered on 08:53; Start 05/03/17 at 15:03; Stop 05/04/17 at 15:02 Vancomycin HCl (Vanco Per Pharmacy) 1 each PRN DAILY PRN MC SEE COMMENTS Last administered on 05/04/17 09:07; Start 05/03/17 at 19:00 Piperacillin Sod/ Tazobactam Sod (Zosyn Per Pharmacy) 1 each PRN DAILY PRN MC SEE COMMENTS; Start 05/03/17 at 19:00 Hydralazine HCl (Apresoline Inj) 10 mg PRN Q4HRS PRN IVP ELEVATED BP, SEE COMMENTS Last administered on 05/04/17 13:33; Start 05/03/17 at 19:00 Vancomycin HCl 1.75 gm/Dextrose 500 ml @ 250 mls/hr Q24H IV Last administered on 05/03/17 21:18; Start 05/03/17 at 20:00 Vancomycin HCl 1 each 1X ONCE MC ; Start 05/05/17 at 19:30; Stop 05/05/17 at 19:31 Piperacillin Sod/ Tazobactam Sod (Zosyn) 3.375 gm Q6HRS IVP Last administered on 05/04/17 13:25; Start 05/03/17 at 21:00 Aspirin (Ecotrin) 81 mg DAILY PO Last administered on 05/04/17 08:56; Start 05/04/17 at 09:00 Atorvastatin Calcium (Lipitor) 20 mg HS PO Last administered on 05/03/17 21: 20; Start 05/03/17 at 21:00 Furosemide (Lasix) 80 mg DAILY PO Last administered on 05/04/17 08:55; Start 05/04/17 at 09:00 Acetaminophen/ Hydrocodone Bitart (Lortab 5/325) 1 tab PRN Q6HRS PRN PO PAIN; Start 05/03/17 at 19:00 Linagliptin (Tradjenta) 5 mg DAILY PO Last administered on 05/04/17 08:56; Start 05/04/17 at 09:00 Niacin (Slo-Niacin) 1,000 mg HS PO Last administered on 05/03/17 21:19; Start 05/03/17 at 21:00 Pantoprazole Sodium (Protonix) 40 mg DAILYAC PO Last administered on 08:56; Start 05/04/17 at 07:30 Primidone (Mysoline) 200 mg HS PO Last administered on 05/03/17 21:19; Start 05/03/17 at 21:00 Tramadol HCl (Ultram) 50 mg PRN Q6HRS PRN PO PAIN; Start 05/03/17 at 19:00 Dorzolamide HCl (Trusopt) 1 drop TID OU Last administered on 05/04/17 08:56; Start 05/03/17 at 21:00 Gabapentin (Neurontin) 300 mg BID PO Last administered on 05/04/17 08:55; Start 05/03/17 at 21:00 Insulin Detemir (Levemir) 40 units QHS SQ Last administered on 05/03/17 21:25 ; Start 05/03/17 at 21:00 Insulin Aspart (NovoLOG) 35 units TIDAC SQ ; Start 05/04/17 at 07:30 Non-Formulary Medication 2 inh QID IH ; Start 05/03/17 at 21:00; Status UNV Non-Formulary Medication 1,000 mg DAILY PO ; Start 05/04/17 at 09:00; Status UNV Non-Formulary Medication 25 mg DAILY PO ; Start 05/04/17 at 09:00; Status UNV Latanoprost (Xalatan) 1 drop QHS OU Last administered on 05/03/17 21:00; Start 05/03/17 at 21:00 Metoprolol Tartrate (Lopressor) 100 mg BID PO Last administered on 05/04/17 08:56; Start 05/03/17 at 21:00 Ondansetron HCl (Zofran) 4 mg PRN Q6HRS PRN IV NAUSEA/VOMITING Last administered on 05/03/17 19:14; Start 05/03/17 at 19:00 Insulin Aspart (NovoLOG) 0-5 UNITS TIDWMEALS SQ Last administered on 11:54; Start 05/04/17 at 08:00 Dextrose (Dextrose 50%-Water Syringe) 12.5 gm PRN Q15MIN PRN IV SEE COMMENTS; Start 05/03/17 at 19:00 Albuterol/ Ipratropium (Duoneb) 3 ml RTQID NEB Last administered on 05/04/17 11:11; Start 05/03/17 at 20:00 Lactobacillus Rhamnosus (Culturelle) 1 cap BID PO ; Start 05/04/17 at 21:00 Active Scripts Active Levemir (Insulin Detemir) 100 Unit/1 Ml Vial 40 Unit SQ QHS 30 Days Gabapentin 300 Mg Capsule 300 Mg PO BID 30 Days Reported Hydrocodone-Apap 5-325 (Hydrocodone Bit/Acetaminophen) 1 Each Tablet 1 Tab PO PRN Q6HRS PRN Niacin Er (Niacin) 1,000 Mg Tab.er.24h 1,000 Mg PO DAILY Tramadol Hcl 50 Mg Tablet 50 Mg PO PRN Q6HRS PRN Furosemide 80 Mg Tablet 80 Mg PO DAILY Tradjenta (Linagliptin) 5 Mg Tablet 5 Mg PO DAILY Humalog (Insulin Lispro) 100 Unit/1 Ml Insuln.pen 35 Units SQ TIDAC Combivent Respimat Inhal (Ipratropium/Albuterol Sulfate) 4 Gm Aer.w.adap 2 Inh IH QID Januvia (Sitagliptin Phosphate) 50 Mg Tablet 25 Mg PO DAILY Metoprolol Tartrate 100 Mg Tablet 1 Tab PO BID Niaspan (Niacin) 500 Mg Tab.er.24h 1,000 Mg PO HS Travatan Z (Travoprost) 5 Ml Drops 1 Drop EACHEYE QHS Primidone 50 Mg Tablet 200 Mg PO HS Pantoprazole Sodium 40 Mg Tablet.dr 1 Tab PO DAILY Lipitor (Atorvastatin Calcium) 20 Mg Tablet 20 Mg PO HS Azopt (Brinzolamide) 10 Ml Drops.susp 10 Ml OP BID PRN Ecotrin (Aspirin) 81 Mg Tablet.dr 81 Mg PO DAILY Vitals/I & O Vital Sign - Last 24 Hours 05/03/17 05/03/17 05/03/17 05/03/17 14:33 16:57 17:47 19:00 Temp 98.4 97.7 98.4 97.7 Pulse 76 89 Resp 20 19 B/P (MAP) 162/73 (102) 147/97 (114) Pulse Ox 94 91 O2 Delivery Room Air Room Air Room Air Room Air 05/03/17 05/03/17 05/03/17 05/03/17 19:20 20:00 20:46 21:20 Temp 99.1 99.1 Pulse 78 78 Resp 18 B/P (MAP) 159/58 (91) 159/58 Pulse Ox 95 93 O2 Delivery Room Air Room Air Room Air 05/03/17 05/03/17 05/04/17 05/04/17 22:48 23:00 01:30 03:00 Temp 98.3 97.4 98.3 97.4 Pulse 89 70 Resp 21 20 B/P (MAP) 137/62 (87) 153/112 (126) Pulse Ox 97 98 94 O2 Delivery BiPAP/CPAP BiPAP/CPAP BiPAP/CPAP Room Air O2 Flow Rate 10.0 05/04/17 05/04/17 05/04/17 05/04/17 03:05 07:00 07:22 07:30 Temp 97.7 97.7 Pulse 70 Resp 19 B/P (MAP) 154/73 (100) Pulse Ox 96 94 O2 Delivery BiPAP/CPAP Room Air Room Air Room Air 05/04/17 05/04/17 05/04/17 05/04/17 08:56 11:00 11:11 13:33 Temp 98.1 98.1 Pulse 70 68 68 Resp 19 B/P (MAP) 154/73 182/89 (120) 182/89 Pulse Ox 100 94 O2 Delivery Room Air Room Air Intake and Output 05/03/17 05/03/17 05/04/17 15:00 23:00 07:00 Intake Total 180 ml 500 ml Output Total 100 ml 1100 ml Balance 80 ml -600 ml DONNA SANDOVAL MD May 04, 2017 14:19
[2017-05-04 14:55] VITALS: BP 137/60
[2017-05-04] MEDS: HYDROcodone/APAP 5/325MG 1 TAB TABLET PO PRN (17:08)
--- NOTE | 2017-05-04 17:41 | PDOC ---
Infectious Disease Note Vital Sign Vital Signs Vital Signs Date Time Temp Pulse Resp B/P (MAP) Pulse Ox O2 Delivery O2 Flow Rate FiO2 05/04/17 15:48 Room Air 05/04/17 14:55 97.7 69 19 137/60 (85) 97 97.7 05/03/17 23:00 10.0 Labs Lab Laboratory Tests Test 05/03/17 20:53 05/04/17 03:40 05/04/17 08:00 05/04/17 11:34 Glucose (Fingerstick) 200 mg/dL (70-99) 187 mg/dL (70-99) 212 mg/dL (70-99) White Blood Count 9.6 x10^3/uL (4.0-11.0) Red Blood Count 3.27 x10^6/uL (4.30-5.70) Hemoglobin 10.6 g/dL (13.0-17.5) Hematocrit 33.0 % (39.0-53.0) Mean Corpuscular Volume 101 fL (79-100) Mean Corpuscular Hemoglobin 32 pg (25-35) Mean Corpuscular Hemoglobin Concent 32 g/dL (31-37) Red Cell Distribution Width 14.5 % (11.5-14.5) Platelet Count 131 x10^3/uL (140-400) Neutrophils (%) (Auto) 66 % (31-73) Lymphocytes (%) (Auto) 16 % (24-48) Monocytes (%) (Auto) 17 % (0-9) Eosinophils (%) (Auto) 1 % (0-3) Basophils (%) (Auto) 0 % (0-3) Neutrophils # (Auto) 6.3 x10^3uL (1.8-7.7) Lymphocytes # (Auto) 1.5 x10^3/uL (1.0-4.8) Monocytes # (Auto) 1.6 x10^3/uL (0.0-1.1) Eosinophils # (Auto) 0.1 x10^3/uL (0.0-0.7) Basophils # (Auto) 0.0 x10^3/uL (0.0-0.2) Sodium Level 140 mmol/L (136-145) Potassium Level 4.1 mmol/L (3.5-5.1) Chloride Level 104 mmol/L (98-107) Carbon Dioxide Level 29 mmol/L (21-32) Anion Gap 7 (6-14) Blood Urea Nitrogen 32 mg/dL (8-26) Creatinine 1.9 mg/dL (0.7-1.3) Estimated GFR (Cockcroft-Gault) 40.9 Glucose Level 201 mg/dL (70-99) Calcium Level 8.7 mg/dL (8.5-10.1) Test 05/04/17 13:39 05/04/17 16:35 Iron Level 48 ug/dL (65-175) Total Iron Binding Capacity 186 ug/dL (250-450) Iron Saturation 26 % (15-34) Glucose (Fingerstick) 184 mg/dL (70-99) Micro URINE CULTURE RES 1 Preliminary Comment Mixed urogenital bernarda BLOOD CULTURE Preliminary NO GROWTH AFTER 1 DAY Objective Assessment Leukocytosis, cultures NGTD Chronic venous ulcers lower extremities bilat, no evidence of infection CKD DM h/o seizures Chronic diastolic heart failure Plan Plan of Care d/c vancomycin and continue Zosyn for now Cultures NGTD and wounds look clean f/u am labs Supportive care D/w daughter Thank you [id number] PT 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
[2017-05-04 19:00] VITALS: BP 125/61
[2017-05-04] MEDS: NIACIN ER 500 MG TABLET.ER PO SCH (20:31)
[2017-05-04] MEDS: PRIMIDONE 50 MG TABLET PO SCH (20:31)
[2017-05-04] MEDS: LACTOBACILLUS RHAMNOSUS GG 1 CAPSULE. PO SCH (20:32)
[2017-05-04] MEDS: ATORVASTATIN CALCIUM 20 MG TABLET PO SCH (20:32)
[2017-05-04] MEDS: traMADol 50 MG TABLET PO PRN ×3 (20:33→21:35)
[2017-05-04] MEDS: INSULIN DETEMIR 300 UNITS/3 ML INSULN.PEN. SQ SCH (20:49)
[2017-05-04] MEDS: LATANOPROST 0.005% OPHTH SOLUTION 2.5ML BOTTLE. OU SCH (21:00)
--- NOTE | 2017-05-04 21:21 | CONS ---
DATE OF CONSULTATION: 05/04/2017 REASON FOR CONSULTATION: Nausea and anemia. HISTORY OF PRESENT ILLNESS: An 87-year-old -[place] male with past medical history significant for CHF, hypertension, ____, diabetes mellitus, stress and chronic venous stasis ulcers, admitted with weakness, productive cough and low-grade fever. The patient denies any abdominal pain presently, but has had some nausea. Denies any long bleeding, but was noted to be anemic. No family history of colon cancer is elicited. He has otherwise been in reasonably good health. PAST MEDICAL HISTORY: Heart disease, CHF, COPD, GERD, hyperlipidemia, hypertension, prostatitis. ALLERGIES: None. He is status post cholecystectomy, pacemaker placement, status post stents. MEDICATIONS: Presently include vancomycin, lactobacillus, Tradjenta, furosemide, aspirin, insulin, pantoprazole, metoprolol, Mysoline, niacin, atorvastatin, piperacillin. SOCIAL HISTORY: Retired. Does not drink or smoke at this time. FAMILY HISTORY: Noncontributory. REVIEW OF SYSTEMS: Per records. PHYSICAL EXAMINATION: GENERAL: Reveals a well-nourished, well-developed -[place] male. VITAL SIGNS: Temp 98.1, pulse 88, respiratory rate 19, blood pressure is 192/89. HEENT: Normocephalic and atraumatic. Pupils and extraocular muscles are not tested. Sclerae anicteric. NECK: Supple. LUNGS: Clear. CARDIOVASCULAR: Reveals S1, S2 without S3, S4 or appreciable murmur. ABDOMEN: Reveals a soft abdomen, normal bowel sounds without appreciable splenomegaly. EXTREMITIES: Reveals no cyanosis, clubbing or edema of the cellulitis/decubiti in the left leg. LABORATORY STUDIES: Hemoglobin is 10.6, hematocrit 33, white count 9.6, platelet count 131,000. Sodium 140, potassium 4.1, chloride 104, bicarbonate 29, BUN 32, creatinine 1.9, glucose is 201, AST is 17, alkaline phosphatase 64, AST 17. Chest x-ray reveals no acute infiltrates or effusions. IMPRESSION: 1. Anemia, most likely secondary to chronic disease with iron studies, B12, retic count, folate levels to better quantify. The patient may need endoscopic evaluation if no obvious source was found and he continues to have a drop in counts. 2. Nausea with longstanding diabetes and the decubiti most likely is multifactorial in etiology. Therefore, recommend medical therapy. Consider cardiac workup to rule out inferior wall ischemia as well as gastric emptying study to assess for gastroparesis if symptoms should be ongoing. PAPITO STEELE MD DR: VINCENZO/danielle JOB#: [id number] / [id number]
[2017-05-04 23:00] VITALS: BP 122/64
[2017-05-05 03:00] VITALS: BP 132/69
[2017-05-05] MEDS: IV NORMAL SALINE 1000ML BAG 1,000 ML IV SCH (03:11)
[2017-05-05] MEDS: PIPERACILLIN/TAZO IV Push 3.375 GM VIAL. IVP SCH ×4 (05:30→23:46)
[2017-05-05 06:22] LABS: ALBUMIN 2.4 g/dL (3.4-5.0); ALBUMIN/GLOBULIN RATIO 0.6 (1.0-1.7); CREATININE 2.1 mg/dL (0.7-1.3); GFR 36.4; TOTAL BILIRUBIN 0.4 mg/dL (0.2-1.0); TOTAL PROTEIN 6.7 g/dL (6.4-8.2)
[2017-05-05 06:24] LABS: BASO % 0 % (0-3); EOS % 3 % (0-3); HEMATOCRIT 33.3 % (39.0-53.0); HEMOGLOBIN 10.5 g/dL (13.0-17.5); LYMPH # 0.9 x10^3/uL (1.0-4.8); LYMPH % 13 % (24-48); MEAN CORPUSCULAR HEMOGLOBIN 32 pg (25-35); MEAN CORPUSCULAR HGB CONC 32 g/dL (31-37); MEAN CORPUSCULAR VOLUME 101 fL (79-100); MONO % 17 % (0-9); NEUT % 67 % (31-73); PLATELET COUNT 130 x10^3/uL (140-400); RED BLOOD COUNT 3.29 x10^6/uL (4.30-5.70); RED CELL DISTRIBUTION WIDTH 14.7 % (11.5-14.5); WHITE BLOOD COUNT 7.4 x10^3/uL (4.0-11.0)
[2017-05-05 07:00] VITALS: BP 114/57
[2017-05-05] MEDS: IPRATRPIUM/ALBUTEROL 0.5/2.5MG 3 ML NEBU. NEB SCH ×4 (07:47→19:34)
[2017-05-05] MEDS: PANTOPRAZOLE 40 MG TABLET.DR. PO SCH (07:48)
[2017-05-05] MEDS: INSULIN ASPART 300 UNITS/3 ML INSULN.PEN SQ SCH ×6 (07:53→17:04)
[2017-05-05] MEDS: DORZOLAMIDE 2% OPHTH SOLUTION 10ML BOTTLE. OU SCH ×3 (09:11→20:24)
[2017-05-05] MEDS: ASPIRIN ENTERIC COATED 81 MG TABLET.DR. PO SCH (09:11)
[2017-05-05] MEDS: LACTOBACILLUS RHAMNOSUS GG 1 CAPSULE. PO SCH ×2 (09:11→20:22)
[2017-05-05] MEDS: FUROSEMIDE 80 MG TABLET. PO SCH (09:11)
[2017-05-05] MEDS: GABAPENTIN 300 MG CAPSULE. PO SCH ×2 (09:11→20:22)
[2017-05-05] MEDS: LINAGLIPTIN 5 MG TABLET PO SCH (09:11)
[2017-05-05] MEDS: METOPROLOL TART IMMED RELEASE 50 MG TABLET. PO SCH ×2 (09:12→20:25)
--- NOTE | 2017-05-05 10:06 | PDOC ---
PROGRESS NOTES Chief Complaint Chief Complaint fevers - SIRS, abx started foot wound appears clear CKD 3,, maybe 4 now, consult renal Anemia of CKD Dm2, in morbid obesity, BMI 44 weakness , acquired nausea and vomiting and abominal pain, improving, chronic diastolic CHF History of Present Illness History of Present Illness more alert today, mental status much improved, encephalopathy yesterday, NOS, now improved still weakness will consult renal, to follow, DC tele PT and O eval consider SNU? Vitals Vitals Vital Signs Date Time Temp Pulse Resp B/P (MAP) Pulse Ox O2 Delivery O2 Flow Rate FiO2 05/05/17 09:12 70 114/57 05/05/17 07:30 Room Air 05/05/17 07:00 97.5 20 99 97.5 05/04/17 18:08 10.0 Physical Exam General: Alert, Cooperative, No acute distress, moderate distress Heart: Regular rate Lungs: Clear Abdomen: Soft Extremities: No clubbing Skin: No rashes, No breakdown Labs LABS Laboratory Tests Test 05/04/17 11:34 05/04/17 13:39 05/04/17 16:35 05/04/17 21:03 Glucose (Fingerstick) 212 mg/dL (70-99) 184 mg/dL (70-99) 227 mg/dL (70-99) Iron Level 48 ug/dL (65-175) Total Iron Binding Capacity 186 ug/dL (250-450) Iron Saturation 26 % (15-34) Test 05/05/17 05:05 05/05/17 07:10 White Blood Count 7.4 x10^3/uL (4.0-11.0) Red Blood Count 3.29 x10^6/uL (4.30-5.70) Hemoglobin 10.5 g/dL (13.0-17.5) Hematocrit 33.3 % (39.0-53.0) Mean Corpuscular Volume 101 fL (79-100) Mean Corpuscular Hemoglobin 32 pg (25-35) Mean Corpuscular Hemoglobin Concent 32 g/dL (31-37) Red Cell Distribution Width 14.7 % (11.5-14.5) Platelet Count 130 x10^3/uL (140-400) Neutrophils (%) (Auto) 67 % (31-73) Lymphocytes (%) (Auto) 13 % (24-48) Monocytes (%) (Auto) 17 % (0-9) Eosinophils (%) (Auto) 3 % (0-3) Basophils (%) (Auto) 0 % (0-3) Neutrophils # (Auto) 4.9 x10^3uL (1.8-7.7) Lymphocytes # (Auto) 0.9 x10^3/uL (1.0-4.8) Monocytes # (Auto) 1.3 x10^3/uL (0.0-1.1) Eosinophils # (Auto) 0.2 x10^3/uL (0.0-0.7) Basophils # (Auto) 0.0 x10^3/uL (0.0-0.2) Reticulocyte Count (auto) 1.3 % (0.5-2.5) Sodium Level 140 mmol/L (136-145) Potassium Level 4.0 mmol/L (3.5-5.1) Chloride Level 105 mmol/L (98-107) Carbon Dioxide Level 30 mmol/L (21-32) Anion Gap 5 (6-14) Blood Urea Nitrogen 27 mg/dL (8-26) Creatinine 2.1 mg/dL (0.7-1.3) Estimated GFR (Cockcroft-Gault) 36.4 BUN/Creatinine Ratio 13 (6-20) Glucose Level 191 mg/dL (70-99) Calcium Level 8.0 mg/dL (8.5-10.1) Total Bilirubin 0.4 mg/dL (0.2-1.0) Aspartate Amino Transf (AST/SGOT) 34 U/L (15-37) Alanine Aminotransferase (ALT/SGPT) 18 U/L (16-63) Alkaline Phosphatase 42 U/L (46-116) Total Protein 6.7 g/dL (6.4-8.2) Albumin 2.4 g/dL (3.4-5.0) Albumin/Globulin Ratio 0.6 (1.0-1.7) Glucose (Fingerstick) 194 mg/dL (70-99) Review of Systems Review of Systems no n.v or d feels better str improved Assessment and Plan Assessmemt and Plan Problems Medical Problems: (1) Generalized weakness Status: Acute (2) Urinary tract infection Status: Acute Problems: Comment Review of Relevant I have reviewed the following items anthony (where applicable) has been applied. Labs Laboratory Tests Test 05/03/17 11:58 05/03/17 12:32 05/03/17 16:54 05/03/17 20:53 White Blood Count 14.1 x10^3/uL (4.0-11.0) Red Blood Count 3.45 x10^6/uL (4.30-5.70) Hemoglobin 11.0 g/dL (13.0-17.5) Hematocrit 34.9 % (39.0-53.0) Mean Corpuscular Volume 101 fL (79-100) Mean Corpuscular Hemoglobin 32 pg (25-35) Mean Corpuscular Hemoglobin Concent 32 g/dL (31-37) Red Cell Distribution Width 14.5 % (11.5-14.5) Platelet Count 154 x10^3/uL (140-400) Neutrophils (%) (Auto) 75 % (31-73) Lymphocytes (%) (Auto) 11 % (24-48) Monocytes (%) (Auto) 13 % (0-9) Eosinophils (%) (Auto) 0 % (0-3) Basophils (%) (Auto) 1 % (0-3) Neutrophils # (Auto) 10.6 x10^3uL (1.8-7.7) Lymphocytes # (Auto) 1.5 x10^3/uL (1.0-4.8) Monocytes # (Auto) 1.8 x10^3/uL (0.0-1.1) Eosinophils # (Auto) 0.1 x10^3/uL (0.0-0.7) Basophils # (Auto) 0.1 x10^3/uL (0.0-0.2) Sodium Level 141 mmol/L (136-145) Potassium Level 3.4 mmol/L (3.5-5.1) Chloride Level 103 mmol/L (98-107) Carbon Dioxide Level 30 mmol/L (21-32) Anion Gap 8 (6-14) Blood Urea Nitrogen 36 mg/dL (8-26) Creatinine 2.0 mg/dL (0.7-1.3) Estimated GFR (Cockcroft-Gault) 38.5 BUN/Creatinine Ratio 18 (6-20) Glucose Level 127 mg/dL (70-99) Lactic Acid Level 1.4 mmol/L (0.4-2.0) Calcium Level 9.4 mg/dL (8.5-10.1) Total Bilirubin 0.4 mg/dL (0.2-1.0) Aspartate Amino Transf (AST/SGOT) 17 U/L (15-37) Alanine Aminotransferase (ALT/SGPT) 20 U/L (16-63) Alkaline Phosphatase 64 U/L (46-116) C-Reactive Protein, Quantitative 45.1 mg/L (0-3.3) Total Protein 8.4 g/dL (6.4-8.2) Albumin 3.3 g/dL (3.4-5.0) Albumin/Globulin Ratio 0.6 (1.0-1.7) Influenza Type A Antigen Negative (NEGATIVE) Influenza Type B Antigen Negative (NEGATIVE) Urine Collection Type Unknown Urine Color Yellow Urine Clarity Clear Urine pH 7.0 Urine Specific [place] 1.015 Urine Protein 30 mg/dL (NEG-TRACE) Urine Glucose (UA) Negative mg/dL (NEG) Urine Ketones (Stick) Negative mg/dL (NEG) Urine Blood Trace (NEG) Urine Nitrite Negative (NEG) Urine Bilirubin Negative (NEG) Urine Urobilinogen Dipstick 1.0 mg/dL (0.2 mg/dL) Urine Leukocyte Esterase Moderate (NEG) Urine RBC 0 /HPF (0-2) Urine WBC >40 /HPF (0-4) Urine Squamous Epithelial Cells Occ /LPF Urine Bacteria 0 /HPF (0-FEW) Glucose (Fingerstick) 137 mg/dL (70-99) 200 mg/dL (70-99) Test 05/04/17 03:40 05/04/17 08:00 05/04/17 11:34 05/04/17 13:39 White Blood Count 9.6 x10^3/uL (4.0-11.0) Red Blood Count 3.27 x10^6/uL (4.30-5.70) Hemoglobin 10.6 g/dL (13.0-17.5) Hematocrit 33.0 % (39.0-53.0) Mean Corpuscular Volume 101 fL (79-100) Mean Corpuscular Hemoglobin 32 pg (25-35) Mean Corpuscular Hemoglobin Concent 32 g/dL (31-37) Red Cell Distribution Width 14.5 % (11.5-14.5) Platelet Count 131 x10^3/uL (140-400) Neutrophils (%) (Auto) 66 % (31-73) Lymphocytes (%) (Auto) 16 % (24-48) Monocytes (%) (Auto) 17 % (0-9) Eosinophils (%) (Auto) 1 % (0-3) Basophils (%) (Auto) 0 % (0-3) Neutrophils # (Auto) 6.3 x10^3uL (1.8-7.7) Lymphocytes # (Auto) 1.5 x10^3/uL (1.0-4.8) Monocytes # (Auto) 1.6 x10^3/uL (0.0-1.1) Eosinophils # (Auto) 0.1 x10^3/uL (0.0-0.7) Basophils # (Auto) 0.0 x10^3/uL (0.0-0.2) Sodium Level 140 mmol/L (136-145) Potassium Level 4.1 mmol/L (3.5-5.1) Chloride Level 104 mmol/L (98-107) Carbon Dioxide Level 29 mmol/L (21-32) Anion Gap 7 (6-14) Blood Urea Nitrogen 32 mg/dL (8-26) Creatinine 1.9 mg/dL (0.7-1.3) Estimated GFR (Cockcroft-Gault) 40.9 Glucose Level 201 mg/dL (70-99) Calcium Level 8.7 mg/dL (8.5-10.1) Glucose (Fingerstick) 187 mg/dL (70-99) 212 mg/dL (70-99) Iron Level 48 ug/dL (65-175) Total Iron Binding Capacity 186 ug/dL (250-450) Iron Saturation 26 % (15-34) Test 05/04/17 16:35 05/04/17 21:03 05/05/17 05:05 05/05/17 07:10 Glucose (Fingerstick) 184 mg/dL (70-99) 227 mg/dL (70-99) 194 mg/dL (70-99) White Blood Count 7.4 x10^3/uL (4.0-11.0) Red Blood Count 3.29 x10^6/uL (4.30-5.70) Hemoglobin 10.5 g/dL (13.0-17.5) Hematocrit 33.3 % (39.0-53.0) Mean Corpuscular Volume 101 fL (79-100) Mean Corpuscular Hemoglobin 32 pg (25-35) Mean Corpuscular Hemoglobin Concent 32 g/dL (31-37) Red Cell Distribution Width 14.7 % (11.5-14.5) Platelet Count 130 x10^3/uL (140-400) Neutrophils (%) (Auto) 67 % (31-73) Lymphocytes (%) (Auto) 13 % (24-48) Monocytes (%) (Auto) 17 % (0-9) Eosinophils (%) (Auto) 3 % (0-3) Basophils (%) (Auto) 0 % (0-3) Neutrophils # (Auto) 4.9 x10^3uL (1.8-7.7) Lymphocytes # (Auto) 0.9 x10^3/uL (1.0-4.8) Monocytes # (Auto) 1.3 x10^3/uL (0.0-1.1) Eosinophils # (Auto) 0.2 x10^3/uL (0.0-0.7) Basophils # (Auto) 0.0 x10^3/uL (0.0-0.2) Reticulocyte Count (auto) 1.3 % (0.5-2.5) Sodium Level 140 mmol/L (136-145) Potassium Level 4.0 mmol/L (3.5-5.1) Chloride Level 105 mmol/L (98-107) Carbon Dioxide Level 30 mmol/L (21-32) Anion Gap 5 (6-14) Blood Urea Nitrogen 27 mg/dL (8-26) Creatinine 2.1 mg/dL (0.7-1.3) Estimated GFR (Cockcroft-Gault) 36.4 BUN/Creatinine Ratio 13 (6-20) Glucose Level 191 mg/dL (70-99) Calcium Level 8.0 mg/dL (8.5-10.1) Total Bilirubin 0.4 mg/dL (0.2-1.0) Aspartate Amino Transf (AST/SGOT) 34 U/L (15-37) Alanine Aminotransferase (ALT/SGPT) 18 U/L (16-63) Alkaline Phosphatase 42 U/L (46-116) Total Protein 6.7 g/dL (6.4-8.2) Albumin 2.4 g/dL (3.4-5.0) Albumin/Globulin Ratio 0.6 (1.0-1.7) Laboratory Tests Test 05/04/17 11:34 05/04/17 13:39 05/04/17 16:35 05/04/17 21:03 Glucose (Fingerstick) 212 mg/dL (70-99) 184 mg/dL (70-99) 227 mg/dL (70-99) Iron Level 48 ug/dL (65-175) Total Iron Binding Capacity 186 ug/dL (250-450) Iron Saturation 26 % (15-34) Test 05/05/17 05:05 05/05/17 07:10 White Blood Count 7.4 x10^3/uL (4.0-11.0) Red Blood Count 3.29 x10^6/uL (4.30-5.70) Hemoglobin 10.5 g/dL (13.0-17.5) Hematocrit 33.3 % (39.0-53.0) Mean Corpuscular Volume 101 fL (79-100) Mean Corpuscular Hemoglobin 32 pg (25-35) Mean Corpuscular Hemoglobin Concent 32 g/dL (31-37) Red Cell Distribution Width 14.7 % (11.5-14.5) Platelet Count 130 x10^3/uL (140-400) Neutrophils (%) (Auto) 67 % (31-73) Lymphocytes (%) (Auto) 13 % (24-48) Monocytes (%) (Auto) 17 % (0-9) Eosinophils (%) (Auto) 3 % (0-3) Basophils (%) (Auto) 0 % (0-3) Neutrophils # (Auto) 4.9 x10^3uL (1.8-7.7) Lymphocytes # (Auto) 0.9 x10^3/uL (1.0-4.8) Monocytes # (Auto) 1.3 x10^3/uL (0.0-1.1) Eosinophils # (Auto) 0.2 x10^3/uL (0.0-0.7) Basophils # (Auto) 0.0 x10^3/uL (0.0-0.2) Reticulocyte Count (auto) 1.3 % (0.5-2.5) Sodium Level 140 mmol/L (136-145) Potassium Level 4.0 mmol/L (3.5-5.1) Chloride Level 105 mmol/L (98-107) Carbon Dioxide Level 30 mmol/L (21-32) Anion Gap 5 (6-14) Blood Urea Nitrogen 27 mg/dL (8-26) Creatinine 2.1 mg/dL (0.7-1.3) Estimated GFR (Cockcroft-Gault) 36.4 BUN/Creatinine Ratio 13 (6-20) Glucose Level 191 mg/dL (70-99) Calcium Level 8.0 mg/dL (8.5-10.1) Total Bilirubin 0.4 mg/dL (0.2-1.0) Aspartate Amino Transf (AST/SGOT) 34 U/L (15-37) Alanine Aminotransferase (ALT/SGPT) 18 U/L (16-63) Alkaline Phosphatase 42 U/L (46-116) Total Protein 6.7 g/dL (6.4-8.2) Albumin 2.4 g/dL (3.4-5.0) Albumin/Globulin Ratio 0.6 (1.0-1.7) Glucose (Fingerstick) 194 mg/dL (70-99) Microbiology 05/03/17 Blood Culture - Preliminary, Resulted NO GROWTH AFTER 1 DAY 05/03/17 Urine Culture - Preliminary, Resulted 05/03/17 Urine Culture Result 1 (BREANNA) - Preliminary, Resulted Medications Current Medications Levofloxacin/ Dextrose 100 ml @ 100 mls/hr 1X ONCE IV Last administered on 14:54; Start 05/03/17 at 14:30; Stop 05/03/17 at 15:29; Status DC Morphine Sulfate 2 mg PRN Q2HR PRN IV PAIN Last administered on 05/03/17 16: 57; Start 05/03/17 at 15:15; Stop 05/04/17 at 15:14; Status DC Sodium Chloride 1,000 ml @ 75 mls/hr [id number] IV Last administered on 03:11; Start 05/03/17 at 15:03; Stop 05/04/17 at 15:02; Status DC Vancomycin HCl (Vanco Per Pharmacy) 1 each PRN DAILY PRN MC SEE COMMENTS Last administered on 05/04/17 09:07; Start 05/03/17 at 19:00; Stop 05/04/17 at 17 :47; Status DC Piperacillin Sod/ Tazobactam Sod (Zosyn Per Pharmacy) 1 each PRN DAILY PRN MC SEE COMMENTS; Start 05/03/17 at 19:00 Hydralazine HCl (Apresoline Inj) 10 mg PRN Q4HRS PRN IVP ELEVATED BP, SEE COMMENTS Last administered on 05/04/17 13:33; Start 05/03/17 at 19:00 Vancomycin HCl 1.75 gm/Dextrose 500 ml @ 250 mls/hr Q24H IV Last administered on 05/03/17 21:18; Start 05/03/17 at 20:00; Stop 05/04/17 at 17:47; Status DC Vancomycin HCl 1 each 1X ONCE MC ; Start 05/05/17 at 19:30; Stop 05/05/17 at 19:30; Status DC Piperacillin Sod/ Tazobactam Sod (Zosyn) 3.375 gm Q6HRS IVP Last administered on 05/05/17 05:30; Start 05/03/17 at 21:00 Aspirin (Ecotrin) 81 mg DAILY PO Last administered on 05/05/17 09:11; Start 05/04/17 at 09:00 Atorvastatin Calcium (Lipitor) 20 mg HS PO Last administered on 05/04/17 20: 32; Start 05/03/17 at 21:00 Furosemide (Lasix) 80 mg DAILY PO Last administered on 05/05/17 09:11; Start 05/04/17 at 09:00 Acetaminophen/ Hydrocodone Bitart (Lortab 5/325) 1 tab PRN Q6HRS PRN PO PAIN Last administered on 05/04/17 17:08; Start 05/03/17 at 19:00 Linagliptin (Tradjenta) 5 mg DAILY PO Last administered on 05/05/17 09:11; Start 05/04/17 at 09:00 Niacin (Slo-Niacin) 1,000 mg HS PO Last administered on 05/04/17 20:31; Start 05/03/17 at 21:00 Pantoprazole Sodium (Protonix) 40 mg DAILYAC PO Last administered on 07:48; Start 05/04/17 at 07:30 Primidone (Mysoline) 200 mg HS PO Last administered on 05/04/17 20:31; Start 05/03/17 at 21:00 Tramadol HCl (Ultram) 50 mg PRN Q6HRS PRN PO PAIN Last administered on 21:33; Start 05/03/17 at 19:00 Dorzolamide HCl (Trusopt) 1 drop TID OU Last administered on 05/05/17 09:11; Start 05/03/17 at 21:00 Gabapentin (Neurontin) 300 mg BID PO Last administered on 05/05/17 09:11; Start 05/03/17 at 21:00 Insulin Detemir (Levemir) 40 units QHS SQ Last administered on 05/04/17 20:49 ; Start 05/03/17 at 21:00 Insulin Aspart (NovoLOG) 35 units TIDAC SQ Last administered on 05/05/17 07: 53; Start 05/04/17 at 07:30 Non-Formulary Medication 2 inh QID IH ; Start 05/03/17 at 21:00; Status UNV Non-Formulary Medication 1,000 mg DAILY PO ; Start 05/04/17 at 09:00; Status UNV Non-Formulary Medication 25 mg DAILY PO ; Start 05/04/17 at 09:00; Status UNV Latanoprost (Xalatan) 1 drop QHS OU Last administered on 05/04/17 21:00; Start 05/03/17 at 21:00 Metoprolol Tartrate (Lopressor) 100 mg BID PO Last administered on 05/05/17 09:12; Start 05/03/17 at 21:00 Ondansetron HCl (Zofran) 4 mg PRN Q6HRS PRN IV NAUSEA/VOMITING Last administered on 05/03/17 19:14; Start 05/03/17 at 19:00 Insulin Aspart (NovoLOG) 0-5 UNITS TIDWMEALS SQ Last administered on 07:54; Start 05/04/17 at 08:00 Dextrose (Dextrose 50%-Water Syringe) 12.5 gm PRN Q15MIN PRN IV SEE COMMENTS; Start 05/03/17 at 19:00 Albuterol/ Ipratropium (Duoneb) 3 ml RTQID NEB Last administered on 05/05/17 07:47; Start 05/03/17 at 20:00 Lactobacillus Rhamnosus (Culturelle) 1 cap BID PO Last administered on 09:11; Start 05/04/17 at 21:00 Active Scripts Active Levemir (Insulin Detemir) 100 Unit/1 Ml Vial 40 Unit SQ QHS 30 Days Gabapentin 300 Mg Capsule 300 Mg PO BID 30 Days Reported Hydrocodone-Apap 5-325 (Hydrocodone Bit/Acetaminophen) 1 Each Tablet 1 Tab PO PRN Q6HRS PRN Niacin Er (Niacin) 1,000 Mg Tab.er.24h 1,000 Mg PO DAILY Tramadol Hcl 50 Mg Tablet 50 Mg PO PRN Q6HRS PRN Furosemide 80 Mg Tablet 80 Mg PO DAILY Tradjenta (Linagliptin) 5 Mg Tablet 5 Mg PO DAILY Humalog (Insulin Lispro) 100 Unit/1 Ml Insuln.pen 35 Units SQ TIDAC Combivent Respimat Inhal (Ipratropium/Albuterol Sulfate) 4 Gm Aer.w.adap 2 Inh IH QID Januvia (Sitagliptin Phosphate) 50 Mg Tablet 25 Mg PO DAILY Metoprolol Tartrate 100 Mg Tablet 1 Tab PO BID Niaspan (Niacin) 500 Mg Tab.er.24h 1,000 Mg PO HS Travatan Z (Travoprost) 5 Ml Drops 1 Drop EACHEYE QHS Primidone 50 Mg Tablet 200 Mg PO HS Pantoprazole Sodium 40 Mg Tablet. 1 Tab PO DAILY Lipitor (Atorvastatin Calcium) 20 Mg Tablet 20 Mg PO HS Azopt (Brinzolamide) 10 Ml Drops.susp 10 Ml OP BID PRN Ecotrin (Aspirin) 81 Mg Tablet. 81 Mg PO DAILY Vitals/I & O Vital Sign - Last 24 Hours 05/04/17 05/04/17 05/04/17 05/04/17 11:00 11:11 13:33 14:55 Temp 98.1 97.7 98.1 97.7 Pulse 68 68 69 Resp 19 19 B/P (MAP) 182/89 (120) 182/89 137/60 (85) Pulse Ox 100 94 97 O2 Delivery Room Air Room Air Room Air 05/04/17 05/04/17 05/04/17 05/04/17 15:48 17:08 18:08 19:00 Temp 97.8 97.8 Pulse 69 Resp 20 B/P (MAP) 125/61 (82) Pulse Ox 96 96 O2 Delivery Room Air Room Air Room Air Room Air O2 Flow Rate 10.0 05/04/17 05/04/17 05/04/17 05/04/17 19:38 20:01 20:33 20:41 Pulse 69 Resp 16 B/P (MAP) 125/61 O2 Delivery Room Air Room Air Room Air 05/04/17 05/04/17 05/04/17 05/04/17 21:33 21:33 21:35 22:27 Resp 16 16 16 Pulse Ox 96 96 96 O2 Delivery Room Air Room Air BiPAP/CPAP 05/04/17 05/04/17 05/05/17 05/05/17 22:56 23:00 01:12 03:00 Temp 97.7 97.3 97.7 97.3 Pulse 70 69 Resp 18 18 B/P (MAP) 122/64 (83) 132/69 (90) Pulse Ox 99 96 O2 Delivery Room Air Room Air BiPAP/CPAP Room Air 05/05/17 05/05/17 05/05/17 07:00 07:30 09:12 Temp 97.5 97.5 Pulse 70 70 Resp 20 B/P (MAP) 114/57 (76) 114/57 Pulse Ox 99 O2 Delivery Room Air Room Air Intake and Output 05/04/17 05/04/17 05/05/17 15:00 23:00 07:00 Intake Total 1000 ml Output Total 220 ml 620 ml 700 ml Balance -220 ml -620 ml 300 ml DONNA SANDOVAL MD May 05, 2017 10:06
--- NOTE | 2017-05-05 10:52 | CONS ---
DATE OF CONSULTATION: 05/04/2017 REFERRING PHYSICIAN: Dr. Blanco. REASON FOR CONSULTATION: Antibiotic management. HISTORY OF PRESENT ILLNESS: This patient is an 87-year-old -[place] male with a 6-month history of chronic venous stasis ulcers on the lower extremities bilaterally and is followed by [facility]. Yesterday, during followup, the patient complained of subjective fevers, generalized weakness and malaise, followed by rigors in the ER. He reported some urinary frequency, urgency and hematuria earlier in the week as well as a history of recurrent urinary tract infections. He had elevated white blood cell count of 14,000, with a normal lactic acid level. Urinalysis showed wbcs greater than 40, moderate leukocyte esterase, negative nitrite and bacteria. Urine culture shows no growth. Blood cultures are also negative so far. Chest x-ray was unremarkable. He was started on vancomycin and Zosyn in the ER. The patient is feeling better. He denies headache, nasal/sinus congestion or sore throat. Denies cough, shortness of air, wheezing. Denies chest pain, palpitations or swelling. He has some nausea and vomiting earlier that has since subsided and is starting to feel hungry. He has been constipated, but denies abdominal cramping or bloating. PAST MEDICAL HISTORY: A 6-month history of chronic venous stasis ulcers of lower extremities bilaterally. Diabetic ulcer of left great toe. Diabetes mellitus, chronic kidney disease stage 3, chronic diastolic congestive heart failure, hypertension, coronary artery disease, hyperlipidemia, chronic obstructive pulmonary disease, gastroesophageal reflux disease, vertigo, dementia, essential tremors. Benign prostate enlargement. Seizures. Cerebrovascular accident, obesity, prostatitis. PAST SURGICAL HISTORY: AICD placement, cholecystectomy. Cardiac catheterization. FAMILY HISTORY: Positive for cancer and heart disease. SOCIAL HISTORY: Former smoker. He lives by himself with help from his daughters. ALLERGIES: No known drug allergies. MEDICATIONS: Vancomycin, Zosyn. Other medications are available and have been reviewed on the MAR. REVIEW OF SYSTEMS: Per HPI, otherwise all other review of systems are negative. PHYSICAL EXAMINATION: GENERAL: -[place] male, propped up in bed, eating, in no apparent distress. VITAL SIGNS: Temperature is 97.7, blood pressure 137/60, heart rate 69, respiratory rate 19, pulse oximetry 97% on room air. Weight is 297 pounds, BMI 43. HEENT: Pupils equally round. Normal conjunctivae. Oral mucosa is pink and moist. NECK: Supple. LUNGS: Clear. HEART: Normal S1, S2. Left-sided AICD site unremarkable. ABDOMEN: Obese. Bowel sounds active. Soft, nontender. EXTREMITIES: Trace edema, left lower extremity with venous stasis ulcers on both legs as well as small ulcers on the tip of the left toes. The wounds appear clean without evidence of infection. Left dorsalis pedis pulse weak. No cyanosis. SKIN: Without rash. Peripheral IV looks okay. NEUROLOGIC: Alert. Responds appropriately, follows commands. LABORATORY DATA: Today's WBC 9.6, from 14.1 on admission. Hemoglobin 10.6, hematocrit 33.0, platelet count 131,000. Electrolytes were unremarkable. Creatinine 1.9, BUN 32, glucose 201. Lactic acid 1.4, albumin 3.3, total bilirubin 0.4, AST 17, ALT 20, CRP 45.1. Urinalysis and cultures per HPI. Influenza screen negative. Chest x-ray unremarkable. Abdominal/pelvis CT from 04/14 showed no abdominal or pelvic abnormality. IMPRESSION: 1. Leukocytosis, with negative cultures so far. 2. Chronic venous ulcers, lower extremities bilaterally without evidence of infection. 3. Chronic kidney disease. 4. Diabetes mellitus. 5. History of seizures. PLAN: Discontinue the vancomycin and continue the Zosyn for now. Cultures are negative so far, and the wounds appear clean without evidence of infection. We will follow up on laboratory values and c/s . Supportive care. Discussed with the patient's daughter. Thank you, Dr. Blanco, for asking us to participate in this patient's care. Should you have further questions or concerns, please call. AMITA DUMONT MD DR: JEAN-PIERRE/danielle JOB#: [id number] / [id number] JEANNINE
[2017-05-05 11:00] VITALS: BP 135/49
[2017-05-05] MEDS ORDERED: MAGNESIUM SULFATE 2GM 50 ML IV PRN (12:45)
--- NOTE | 2017-05-05 12:50 | PDOC2 ---
CONSULT Date of Consult Date of Consult DATE: 05/05/17 TIME: 12:41 Reason for Consult Reason for Consult: CKD III Referring Physician Referring Physician: Dr wolfe Identification/Chief Complaint Chief Complaint subj fever Problems: Source Source: Chart review, Patient History of Present Illness Reason for Visit: as dictated Past Medical History Cardiovascular: CAD, CHF, HTN, Hyperlipidemia, Other Pulmonary: COPD, Other CENTRAL NERVOUS SYSTEM: Dementia, Vertigo GI: GERD, Other Heme/Onc: Anemia NOS Hepatobiliary: No pertinent hx Psych: No pertinent hx Rheumatologic: No pertinent hx Infectious disease: No pertinent hx Renal/: Chronic renal insuff, Benign prostatic enlarg. Endocrine: Diabetes Past Surgical History Past Surgical History: Pacemaker, Cholecystectomy, Other Family History Family History ? relevance given advanced age Family History: Cancer, Heart Disease Social History ALCOHOL: none Drugs: None Lives: Alone Domestic Violence: Neg Current Problem List Problem List Problems Medical Problems: (1) Generalized weakness Status: Acute (2) Urinary tract infection Status: Acute Current Medications Current Medications Current Medications Levofloxacin/ Dextrose 100 ml @ 100 mls/hr 1X ONCE IV Last administered on 14:54; Start 05/03/17 at 14:30; Stop 05/03/17 at 15:29; Status DC Morphine Sulfate 2 mg PRN Q2HR PRN IV PAIN Last administered on 05/03/17 16: 57; Start 05/03/17 at 15:15; Stop 05/04/17 at 15:14; Status DC Sodium Chloride 1,000 ml @ 75 mls/hr [id number] IV Last administered on 03:11; Start 05/03/17 at 15:03; Stop 05/04/17 at 15:02; Status DC Vancomycin HCl (Vanco Per Pharmacy) 1 each PRN DAILY PRN MC SEE COMMENTS Last administered on 05/04/17 09:07; Start 05/03/17 at 19:00; Stop 05/04/17 at 17 :47; Status DC Piperacillin Sod/ Tazobactam Sod (Zosyn Per Pharmacy) 1 each PRN DAILY PRN MC SEE COMMENTS; Start 05/03/17 at 19:00 Hydralazine HCl (Apresoline Inj) 10 mg PRN Q4HRS PRN IVP ELEVATED BP, SEE COMMENTS Last administered on 11/18/17at 13:33; Start 05/03/17 at 19:00 Vancomycin HCl 1.75 gm/Dextrose 500 ml @ 250 mls/hr Q24H IV Last administered on 05/03/17 21:18; Start 05/03/17 at 20:00; Stop 05/04/17 at 17:47; Status DC Vancomycin HCl 1 each 1X ONCE MC ; Start 05/05/17 at 19:30; Stop 05/05/17 at 19:30; Status DC Piperacillin Sod/ Tazobactam Sod (Zosyn) 3.375 gm Q6HRS IVP Last administered on 05/05/17 11:46; Start 05/03/17 at 21:00 Aspirin (Ecotrin) 81 mg DAILY PO Last administered on 05/05/17 09:11; Start 05/04/17 at 09:00 Atorvastatin Calcium (Lipitor) 20 mg HS PO Last administered on 05/04/17 20: 32; Start 05/03/17 at 21:00 Furosemide (Lasix) 80 mg DAILY PO Last administered on 05/05/17 09:11; Start 05/04/17 at 09:00 Acetaminophen/ Hydrocodone Bitart (Lortab 5/325) 1 tab PRN Q6HRS PRN PO PAIN Last administered on 05/04/17 17:08; Start 05/03/17 at 19:00 Linagliptin (Tradjenta) 5 mg DAILY PO Last administered on 05/05/17 09:11; Start 05/04/17 at 09:00 Niacin (Slo-Niacin) 1,000 mg HS PO Last administered on 05/04/17 20:31; Start 05/03/17 at 21:00 Pantoprazole Sodium (Protonix) 40 mg DAILYAC PO Last administered on 07:48; Start 05/04/17 at 07:30 Primidone (Mysoline) 200 mg HS PO Last administered on 05/04/17 20:31; Start 05/03/17 at 21:00 Tramadol HCl (Ultram) 50 mg PRN Q6HRS PRN PO PAIN Last administered on 21:33; Start 05/03/17 at 19:00 Dorzolamide HCl (Trusopt) 1 drop TID OU Last administered on 05/05/17 09:11; Start 05/03/17 at 21:00 Gabapentin (Neurontin) 300 mg BID PO Last administered on 05/05/17 09:11; Start 05/03/17 at 21:00 Insulin Detemir (Levemir) 40 units QHS SQ Last administered on 05/04/17 20:49 ; Start 05/03/17 at 21:00 Insulin Aspart (NovoLOG) 35 units TIDAC SQ Last administered on 05/05/17 11: 56; Start 05/04/17 at 07:30 Non-Formulary Medication 2 inh QID IH ; Start 05/03/17 at 21:00; Status UNV Non-Formulary Medication 1,000 mg DAILY PO ; Start 05/04/17 at 09:00; Status UNV Non-Formulary Medication 25 mg DAILY PO ; Start 05/04/17 at 09:00; Status UNV Latanoprost (Xalatan) 1 drop QHS OU Last administered on 05/04/17 21:00; Start 05/03/17 at 21:00 Metoprolol Tartrate (Lopressor) 100 mg BID PO Last administered on 05/05/17 09:12; Start 05/03/17 at 21:00 Ondansetron HCl (Zofran) 4 mg PRN Q6HRS PRN IV NAUSEA/VOMITING Last administered on 05/03/17 19:14; Start 05/03/17 at 19:00 Insulin Aspart (NovoLOG) 0-5 UNITS TIDWMEALS SQ Last administered on 11:56; Start 05/04/17 at 08:00 Dextrose (Dextrose 50%-Water Syringe) 12.5 gm PRN Q15MIN PRN IV SEE COMMENTS; Start 05/03/17 at 19:00 Albuterol/ Ipratropium (Duoneb) 3 ml RTQID NEB Last administered on 05/05/17 11:13; Start 05/03/17 at 20:00 Lactobacillus Rhamnosus (Culturelle) 1 cap BID PO Last administered on 09:11; Start 05/04/17 at 21:00 Active Scripts Active Levemir (Insulin Detemir) 100 Unit/1 Ml Vial 40 Unit SQ QHS 30 Days Gabapentin 300 Mg Capsule 300 Mg PO BID 30 Days Reported Hydrocodone-Apap 5-325 (Hydrocodone Bit/Acetaminophen) 1 Each Tablet 1 Tab PO PRN Q6HRS PRN Niacin Er (Niacin) 1,000 Mg Tab.er.24h 1,000 Mg PO DAILY Tramadol Hcl 50 Mg Tablet 50 Mg PO PRN Q6HRS PRN Furosemide 80 Mg Tablet 80 Mg PO DAILY Tradjenta (Linagliptin) 5 Mg Tablet 5 Mg PO DAILY Humalog (Insulin Lispro) 100 Unit/1 Ml Insuln.pen 35 Units SQ TIDAC Combivent Respimat Inhal (Ipratropium/Albuterol Sulfate) 4 Gm Aer.w.adap 2 Inh IH QID Januvia (Sitagliptin Phosphate) 50 Mg Tablet 25 Mg PO DAILY Metoprolol Tartrate 100 Mg Tablet 1 Tab PO BID Niaspan (Niacin) 500 Mg Tab.er.24h 1,000 Mg PO HS Travatan Z (Travoprost) 5 Ml Drops 1 Drop EACHEYE QHS Primidone 50 Mg Tablet 200 Mg PO HS Pantoprazole Sodium 40 Mg Tablet.dr 1 Tab PO DAILY Lipitor (Atorvastatin Calcium) 20 Mg Tablet 20 Mg PO HS Azopt (Brinzolamide) 10 Ml Drops.susp 10 Ml OP BID PRN Ecotrin (Aspirin) 81 Mg Tablet.dr 81 Mg PO DAILY Allergies Allergies: Coded Allergies: No Known Drug Allergies (Unverified , 08/02/13) ROS Review of System GEN: + Fevers ad Chills OA - now resolved EYES: no new Visual Complaints ENT: no EN Drainage no Hearing deficiets CVS: no Orthopnea no CP RESP: no SOB no MIKE GI: n Nausea katie Vomiting : + Dysuria OA occ Urgency HEME: no easy bruising no Palp Ly Nodes NEURO no Focal Weakness no Sz PSYCH: no Suicidal Ideation no Depression SKIN: no Rashes ENDO: no Polyuria or Polydipsia no Hot/Cold Intolerance MU SK: + Ch Arthraigia occ Myalgia Physical Exam Physical Exam General Appearance: Awake Alert Oriented x 3 In no Distress Eyes: VIsion Unchanged Conjunctiva Normal EN: No EN Drainage Mucous Memb. moist - Poor dentitition Neck: no JVD no JVP Supple no Thyromegaly CVS: S1 S2 ? Soft Murmur No Gallop No Rub tr Edema Resp: no Rales no Rhonchi no Acc. Muscle use GI: BAS +ve NO Bruit Non Tender Non Distended : no CVA tenderness; no Suprapubic Tenderness SKIN: no Rashes Breast Exam deferred; lower ext are in Jobst stockings with small Rt villanueva dressing Mu.Sk: Adequate ROM no Muscle Atrophy Heme: Unable to palpate Obvious LAD no Splenomegaly NEURO: Good Strength and Tone Cranial Nerves II - XII grossly intact Psych: no Depressed no Active hallucination Vital Signs Vital Signs Date Time Temp Pulse Resp B/P (MAP) Pulse Ox O2 Delivery O2 Flow Rate FiO2 05/05/17 11:13 Room Air 05/05/17 09:12 70 114/57 05/05/17 07:16 96 05/05/17 07:00 97.5 20 97.5 05/04/17 18:08 10.0 Assessment & Plan CKD III - DM/ HTNsive / NS stable creat from prior baseline: Current FLuid and E-lyte status does not necessitate emergent need for Dialysis. Will re- evaluate for Dialysis in am; recent CT has shown: Atherosclerotic abdominal aorta, no aneurysm. Atrophic kidneys. No hydronephrosis. Anemia - presumably due to Renal dysfunction; may need Epogen started if symptomatic. Transfuse as needed. HypoAlbuminemia - with ? malnutrtion - vs de to infection. check Protein for proteinuria HTN with CKD: adequately controlled on Current BP meds as reviewed. Discussed Plan of Care and prognosis etc. at length with pt at bedside Labs Labs Laboratory Tests Test 05/03/17 16:54 05/03/17 20:53 05/04/17 03:40 05/04/17 08:00 Glucose (Fingerstick) 137 mg/dL (70-99) 200 mg/dL (70-99) 187 mg/dL (70-99) White Blood Count 9.6 x10^3/uL (4.0-11.0) Red Blood Count 3.27 x10^6/uL (4.30-5.70) Hemoglobin 10.6 g/dL (13.0-17.5) Hematocrit 33.0 % (39.0-53.0) Mean Corpuscular Volume 101 fL (79-100) Mean Corpuscular Hemoglobin 32 pg (25-35) Mean Corpuscular Hemoglobin Concent 32 g/dL (31-37) Red Cell Distribution Width 14.5 % (11.5-14.5) Platelet Count 131 x10^3/uL (140-400) Neutrophils (%) (Auto) 66 % (31-73) Lymphocytes (%) (Auto) 16 % (24-48) Monocytes (%) (Auto) 17 % (0-9) Eosinophils (%) (Auto) 1 % (0-3) Basophils (%) (Auto) 0 % (0-3) Neutrophils # (Auto) 6.3 x10^3uL (1.8-7.7) Lymphocytes # (Auto) 1.5 x10^3/uL (1.0-4.8) Monocytes # (Auto) 1.6 x10^3/uL (0.0-1.1) Eosinophils # (Auto) 0.1 x10^3/uL (0.0-0.7) Basophils # (Auto) 0.0 x10^3/uL (0.0-0.2) Sodium Level 140 mmol/L (136-145) Potassium Level 4.1 mmol/L (3.5-5.1) Chloride Level 104 mmol/L (98-107) Carbon Dioxide Level 29 mmol/L (21-32) Anion Gap 7 (6-14) Blood Urea Nitrogen 32 mg/dL (8-26) Creatinine 1.9 mg/dL (0.7-1.3) Estimated GFR (Cockcroft-Gault) 40.9 Glucose Level 201 mg/dL (70-99) Calcium Level 8.7 mg/dL (8.5-10.1) Test 05/04/17 11:34 05/04/17 13:39 05/04/17 16:35 05/04/17 21:03 Glucose (Fingerstick) 212 mg/dL (70-99) 184 mg/dL (70-99) 227 mg/dL (70-99) Iron Level 48 ug/dL (65-175) Total Iron Binding Capacity 186 ug/dL (250-450) Iron Saturation 26 % (15-34) Test 05/05/17 05:05 05/05/17 07:10 White Blood Count 7.4 x10^3/uL (4.0-11.0) Red Blood Count 3.29 x10^6/uL (4.30-5.70) Hemoglobin 10.5 g/dL (13.0-17.5) Hematocrit 33.3 % (39.0-53.0) Mean Corpuscular Volume 101 fL (79-100) Mean Corpuscular Hemoglobin 32 pg (25-35) Mean Corpuscular Hemoglobin Concent 32 g/dL (31-37) Red Cell Distribution Width 14.7 % (11.5-14.5) Platelet Count 130 x10^3/uL (140-400) Neutrophils (%) (Auto) 67 % (31-73) Lymphocytes (%) (Auto) 13 % (24-48) Monocytes (%) (Auto) 17 % (0-9) Eosinophils (%) (Auto) 3 % (0-3) Basophils (%) (Auto) 0 % (0-3) Neutrophils # (Auto) 4.9 x10^3uL (1.8-7.7) Lymphocytes # (Auto) 0.9 x10^3/uL (1.0-4.8) Monocytes # (Auto) 1.3 x10^3/uL (0.0-1.1) Eosinophils # (Auto) 0.2 x10^3/uL (0.0-0.7) Basophils # (Auto) 0.0 x10^3/uL (0.0-0.2) Reticulocyte Count (auto) 1.3 % (0.5-2.5) Sodium Level 140 mmol/L (136-145) Potassium Level 4.0 mmol/L (3.5-5.1) Chloride Level 105 mmol/L (98-107) Carbon Dioxide Level 30 mmol/L (21-32) Anion Gap 5 (6-14) Blood Urea Nitrogen 27 mg/dL (8-26) Creatinine 2.1 mg/dL (0.7-1.3) Estimated GFR (Cockcroft-Gault) 36.4 BUN/Creatinine Ratio 13 (6-20) Glucose Level 191 mg/dL (70-99) Calcium Level 8.0 mg/dL (8.5-10.1) Total Bilirubin 0.4 mg/dL (0.2-1.0) Aspartate Amino Transf (AST/SGOT) 34 U/L (15-37) Alanine Aminotransferase (ALT/SGPT) 18 U/L (16-63) Alkaline Phosphatase 42 U/L (46-116) Total Protein 6.7 g/dL (6.4-8.2) Albumin 2.4 g/dL (3.4-5.0) Albumin/Globulin Ratio 0.6 (1.0-1.7) Glucose (Fingerstick) 194 mg/dL (70-99) Laboratory Tests Test 05/04/17 13:39 05/04/17 16:35 05/04/17 21:03 05/05/17 05:05 Iron Level 48 ug/dL (65-175) Total Iron Binding Capacity 186 ug/dL (250-450) Iron Saturation 26 % (15-34) Glucose (Fingerstick) 184 mg/dL (70-99) 227 mg/dL (70-99) White Blood Count 7.4 x10^3/uL (4.0-11.0) Red Blood Count 3.29 x10^6/uL (4.30-5.70) Hemoglobin 10.5 g/dL (13.0-17.5) Hematocrit 33.3 % (39.0-53.0) Mean Corpuscular Volume 101 fL (79-100) Mean Corpuscular Hemoglobin 32 pg (25-35) Mean Corpuscular Hemoglobin Concent 32 g/dL (31-37) Red Cell Distribution Width 14.7 % (11.5-14.5) Platelet Count 130 x10^3/uL (140-400) Neutrophils (%) (Auto) 67 % (31-73) Lymphocytes (%) (Auto) 13 % (24-48) Monocytes (%) (Auto) 17 % (0-9) Eosinophils (%) (Auto) 3 % (0-3) Basophils (%) (Auto) 0 % (0-3) Neutrophils # (Auto) 4.9 x10^3uL (1.8-7.7) Lymphocytes # (Auto) 0.9 x10^3/uL (1.0-4.8) Monocytes # (Auto) 1.3 x10^3/uL (0.0-1.1) Eosinophils # (Auto) 0.2 x10^3/uL (0.0-0.7) Basophils # (Auto) 0.0 x10^3/uL (0.0-0.2) Reticulocyte Count (auto) 1.3 % (0.5-2.5) Sodium Level 140 mmol/L (136-145) Potassium Level 4.0 mmol/L (3.5-5.1) Chloride Level 105 mmol/L (98-107) Carbon Dioxide Level 30 mmol/L (21-32) Anion Gap 5 (6-14) Blood Urea Nitrogen 27 mg/dL (8-26) Creatinine 2.1 mg/dL (0.7-1.3) Estimated GFR (Cockcroft-Gault) 36.4 BUN/Creatinine Ratio 13 (6-20) Glucose Level 191 mg/dL (70-99) Calcium Level 8.0 mg/dL (8.5-10.1) Total Bilirubin 0.4 mg/dL (0.2-1.0) Aspartate Amino Transf (AST/SGOT) 34 U/L (15-37) Alanine Aminotransferase (ALT/SGPT) 18 U/L (16-63) Alkaline Phosphatase 42 U/L (46-116) Total Protein 6.7 g/dL (6.4-8.2) Albumin 2.4 g/dL (3.4-5.0) Albumin/Globulin Ratio 0.6 (1.0-1.7) Test 05/05/17 07:10 Glucose (Fingerstick) 194 mg/dL (70-99) NHI DUMONT MD May 05, 2017 12:50
--- NOTE | 2017-05-05 13:39 | PDOC ---
G I PROGRESS NOTE Reason for Follow-up Nausea/anemia Subjective No new complaints Physical Exam Lungs decreased BS CV S1 S2 ABD +BS, soft, nontender Review of Relevant I have reviewed the following items anthony (where applicable) has been applied. Labs Laboratory Tests Test 05/03/17 16:54 05/03/17 20:53 05/04/17 03:40 05/04/17 08:00 Glucose (Fingerstick) 137 mg/dL (70-99) 200 mg/dL (70-99) 187 mg/dL (70-99) White Blood Count 9.6 x10^3/uL (4.0-11.0) Red Blood Count 3.27 x10^6/uL (4.30-5.70) Hemoglobin 10.6 g/dL (13.0-17.5) Hematocrit 33.0 % (39.0-53.0) Mean Corpuscular Volume 101 fL (79-100) Mean Corpuscular Hemoglobin 32 pg (25-35) Mean Corpuscular Hemoglobin Concent 32 g/dL (31-37) Red Cell Distribution Width 14.5 % (11.5-14.5) Platelet Count 131 x10^3/uL (140-400) Neutrophils (%) (Auto) 66 % (31-73) Lymphocytes (%) (Auto) 16 % (24-48) Monocytes (%) (Auto) 17 % (0-9) Eosinophils (%) (Auto) 1 % (0-3) Basophils (%) (Auto) 0 % (0-3) Neutrophils # (Auto) 6.3 x10^3uL (1.8-7.7) Lymphocytes # (Auto) 1.5 x10^3/uL (1.0-4.8) Monocytes # (Auto) 1.6 x10^3/uL (0.0-1.1) Eosinophils # (Auto) 0.1 x10^3/uL (0.0-0.7) Basophils # (Auto) 0.0 x10^3/uL (0.0-0.2) Sodium Level 140 mmol/L (136-145) Potassium Level 4.1 mmol/L (3.5-5.1) Chloride Level 104 mmol/L (98-107) Carbon Dioxide Level 29 mmol/L (21-32) Anion Gap 7 (6-14) Blood Urea Nitrogen 32 mg/dL (8-26) Creatinine 1.9 mg/dL (0.7-1.3) Estimated GFR (Cockcroft-Gault) 40.9 Glucose Level 201 mg/dL (70-99) Calcium Level 8.7 mg/dL (8.5-10.1) Test 05/04/17 11:34 05/04/17 13:39 05/04/17 16:35 05/04/17 21:03 Glucose (Fingerstick) 212 mg/dL (70-99) 184 mg/dL (70-99) 227 mg/dL (70-99) Iron Level 48 ug/dL (65-175) Total Iron Binding Capacity 186 ug/dL (250-450) Iron Saturation 26 % (15-34) Test 05/05/17 05:05 05/05/17 07:10 White Blood Count 7.4 x10^3/uL (4.0-11.0) Red Blood Count 3.29 x10^6/uL (4.30-5.70) Hemoglobin 10.5 g/dL (13.0-17.5) Hematocrit 33.3 % (39.0-53.0) Mean Corpuscular Volume 101 fL (79-100) Mean Corpuscular Hemoglobin 32 pg (25-35) Mean Corpuscular Hemoglobin Concent 32 g/dL (31-37) Red Cell Distribution Width 14.7 % (11.5-14.5) Platelet Count 130 x10^3/uL (140-400) Neutrophils (%) (Auto) 67 % (31-73) Lymphocytes (%) (Auto) 13 % (24-48) Monocytes (%) (Auto) 17 % (0-9) Eosinophils (%) (Auto) 3 % (0-3) Basophils (%) (Auto) 0 % (0-3) Neutrophils # (Auto) 4.9 x10^3uL (1.8-7.7) Lymphocytes # (Auto) 0.9 x10^3/uL (1.0-4.8) Monocytes # (Auto) 1.3 x10^3/uL (0.0-1.1) Eosinophils # (Auto) 0.2 x10^3/uL (0.0-0.7) Basophils # (Auto) 0.0 x10^3/uL (0.0-0.2) Reticulocyte Count (auto) 1.3 % (0.5-2.5) Sodium Level 140 mmol/L (136-145) Potassium Level 4.0 mmol/L (3.5-5.1) Chloride Level 105 mmol/L (98-107) Carbon Dioxide Level 30 mmol/L (21-32) Anion Gap 5 (6-14) Blood Urea Nitrogen 27 mg/dL (8-26) Creatinine 2.1 mg/dL (0.7-1.3) Estimated GFR (Cockcroft-Gault) 36.4 BUN/Creatinine Ratio 13 (6-20) Glucose Level 191 mg/dL (70-99) Calcium Level 8.0 mg/dL (8.5-10.1) Total Bilirubin 0.4 mg/dL (0.2-1.0) Aspartate Amino Transf (AST/SGOT) 34 U/L (15-37) Alanine Aminotransferase (ALT/SGPT) 18 U/L (16-63) Alkaline Phosphatase 42 U/L (46-116) Total Protein 6.7 g/dL (6.4-8.2) Albumin 2.4 g/dL (3.4-5.0) Albumin/Globulin Ratio 0.6 (1.0-1.7) Glucose (Fingerstick) 194 mg/dL (70-99) Laboratory Tests Test 05/04/17 13:39 05/04/17 16:35 05/04/17 21:03 05/05/17 05:05 Iron Level 48 ug/dL (65-175) Total Iron Binding Capacity 186 ug/dL (250-450) Iron Saturation 26 % (15-34) Glucose (Fingerstick) 184 mg/dL (70-99) 227 mg/dL (70-99) White Blood Count 7.4 x10^3/uL (4.0-11.0) Red Blood Count 3.29 x10^6/uL (4.30-5.70) Hemoglobin 10.5 g/dL (13.0-17.5) Hematocrit 33.3 % (39.0-53.0) Mean Corpuscular Volume 101 fL (79-100) Mean Corpuscular Hemoglobin 32 pg (25-35) Mean Corpuscular Hemoglobin Concent 32 g/dL (31-37) Red Cell Distribution Width 14.7 % (11.5-14.5) Platelet Count 130 x10^3/uL (140-400) Neutrophils (%) (Auto) 67 % (31-73) Lymphocytes (%) (Auto) 13 % (24-48) Monocytes (%) (Auto) 17 % (0-9) Eosinophils (%) (Auto) 3 % (0-3) Basophils (%) (Auto) 0 % (0-3) Neutrophils # (Auto) 4.9 x10^3uL (1.8-7.7) Lymphocytes # (Auto) 0.9 x10^3/uL (1.0-4.8) Monocytes # (Auto) 1.3 x10^3/uL (0.0-1.1) Eosinophils # (Auto) 0.2 x10^3/uL (0.0-0.7) Basophils # (Auto) 0.0 x10^3/uL (0.0-0.2) Reticulocyte Count (auto) 1.3 % (0.5-2.5) Sodium Level 140 mmol/L (136-145) Potassium Level 4.0 mmol/L (3.5-5.1) Chloride Level 105 mmol/L (98-107) Carbon Dioxide Level 30 mmol/L (21-32) Anion Gap 5 (6-14) Blood Urea Nitrogen 27 mg/dL (8-26) Creatinine 2.1 mg/dL (0.7-1.3) Estimated GFR (Cockcroft-Gault) 36.4 BUN/Creatinine Ratio 13 (6-20) Glucose Level 191 mg/dL (70-99) Calcium Level 8.0 mg/dL (8.5-10.1) Total Bilirubin 0.4 mg/dL (0.2-1.0) Aspartate Amino Transf (AST/SGOT) 34 U/L (15-37) Alanine Aminotransferase (ALT/SGPT) 18 U/L (16-63) Alkaline Phosphatase 42 U/L (46-116) Total Protein 6.7 g/dL (6.4-8.2) Albumin 2.4 g/dL (3.4-5.0) Albumin/Globulin Ratio 0.6 (1.0-1.7) Test 05/05/17 07:10 Glucose (Fingerstick) 194 mg/dL (70-99) Microbiology 05/03/17 Blood Culture - Preliminary, Resulted NO GROWTH AFTER 2 DAYS 05/03/17 Urine Culture - Preliminary, Resulted 05/03/17 Urine Culture Result 1 (BREANNA) - Preliminary, Resulted Medications Current Medications Levofloxacin/ Dextrose 100 ml @ 100 mls/hr 1X ONCE IV Last administered on 14:54; Start 05/03/17 at 14:30; Stop 05/03/17 at 15:29; Status DC Morphine Sulfate 2 mg PRN Q2HR PRN IV PAIN Last administered on 05/03/17 16: 57; Start 05/03/17 at 15:15; Stop 05/04/17 at 15:14; Status DC Sodium Chloride 1,000 ml @ 75 mls/hr [id number] IV Last administered on 03:11; Start 05/03/17 at 15:03; Stop 05/04/17 at 15:02; Status DC Vancomycin HCl (Vanco Per Pharmacy) 1 each PRN DAILY PRN MC SEE COMMENTS Last administered on 05/04/17 09:07; Start 05/03/17 at 19:00; Stop 05/04/17 at 17 :47; Status DC Piperacillin Sod/ Tazobactam Sod (Zosyn Per Pharmacy) 1 each PRN DAILY PRN MC SEE COMMENTS; Start 05/03/17 at 19:00 Hydralazine HCl (Apresoline Inj) 10 mg PRN Q4HRS PRN IVP ELEVATED BP, SEE COMMENTS Last administered on 05/04/17 13:33; Start 05/03/17 at 19:00 Vancomycin HCl 1.75 gm/Dextrose 500 ml @ 250 mls/hr Q24H IV Last administered on 05/03/17 21:18; Start 05/03/17 at 20:00; Stop 05/04/17 at 17:47; Status DC Vancomycin HCl 1 each 1X ONCE MC ; Start 05/05/17 at 19:30; Stop 05/05/17 at 19:30; Status DC Piperacillin Sod/ Tazobactam Sod (Zosyn) 3.375 gm Q6HRS IVP Last administered on 05/05/17 11:46; Start 05/03/17 at 21:00 Aspirin (Ecotrin) 81 mg DAILY PO Last administered on 05/05/17 09:11; Start 05/04/17 at 09:00 Atorvastatin Calcium (Lipitor) 20 mg HS PO Last administered on 05/04/17 20: 32; Start 05/03/17 at 21:00 Furosemide (Lasix) 80 mg DAILY PO Last administered on 05/05/17 09:11; Start 05/04/17 at 09:00 Acetaminophen/ Hydrocodone Bitart (Lortab 5/325) 1 tab PRN Q6HRS PRN PO PAIN Last administered on 05/04/17 17:08; Start 05/03/17 at 19:00 Linagliptin (Tradjenta) 5 mg DAILY PO Last administered on 05/05/17 09:11; Start 05/04/17 at 09:00 Niacin (Slo-Niacin) 1,000 mg HS PO Last administered on 05/04/17 20:31; Start 05/03/17 at 21:00 Pantoprazole Sodium (Protonix) 40 mg DAILYAC PO Last administered on 07:48; Start 05/04/17 at 07:30 Primidone (Mysoline) 200 mg HS PO Last administered on 05/04/17 20:31; Start 05/03/17 at 21:00 Tramadol HCl (Ultram) 50 mg PRN Q6HRS PRN PO PAIN Last administered on 21:33; Start 05/03/17 at 19:00 Dorzolamide HCl (Trusopt) 1 drop TID OU Last administered on 05/05/17 09:11; Start 05/03/17 at 21:00 Gabapentin (Neurontin) 300 mg BID PO Last administered on 05/05/17 09:11; Start 05/03/17 at 21:00 Insulin Detemir (Levemir) 40 units QHS SQ Last administered on 05/04/17 20:49 ; Start 05/03/17 at 21:00 Insulin Aspart (NovoLOG) 35 units TIDAC SQ Last administered on 05/05/17 11: 56; Start 05/04/17 at 07:30 Non-Formulary Medication 2 inh QID IH ; Start 05/03/17 at 21:00; Status UNV Non-Formulary Medication 1,000 mg DAILY PO ; Start 05/04/17 at 09:00; Status UNV Non-Formulary Medication 25 mg DAILY PO ; Start 05/04/17 at 09:00; Status UNV Latanoprost (Xalatan) 1 drop QHS OU Last administered on 05/04/17 21:00; Start 05/03/17 at 21:00 Metoprolol Tartrate (Lopressor) 100 mg BID PO Last administered on 05/05/17 09:12; Start 05/03/17 at 21:00 Ondansetron HCl (Zofran) 4 mg PRN Q6HRS PRN IV NAUSEA/VOMITING Last administered on 05/03/17 19:14; Start 05/03/17 at 19:00 Insulin Aspart (NovoLOG) 0-5 UNITS TIDWMEALS SQ Last administered on 11:56; Start 05/04/17 at 08:00 Dextrose (Dextrose 50%-Water Syringe) 12.5 gm PRN Q15MIN PRN IV SEE COMMENTS; Start 05/03/17 at 19:00 Albuterol/ Ipratropium (Duoneb) 3 ml RTQID NEB Last administered on 05/05/17 11:13; Start 05/03/17 at 20:00 Lactobacillus Rhamnosus (Culturelle) 1 cap BID PO Last administered on 09:11; Start 05/04/17 at 21:00 Magnesium Sulfate/ Dextrose 50 ml @ 25 mls/hr PRN DAILY PRN IV for Mag < 1.7 on am labs; Start 05/05/17 at 12:45 Active Scripts Active Levemir (Insulin Detemir) 100 Unit/1 Ml Vial 40 Unit SQ QHS 30 Days Gabapentin 300 Mg Capsule 300 Mg PO BID 30 Days Reported Hydrocodone-Apap 5-325 (Hydrocodone Bit/Acetaminophen) 1 Each Tablet 1 Tab PO PRN Q6HRS PRN Niacin Er (Niacin) 1,000 Mg Tab.er.24h 1,000 Mg PO DAILY Tramadol Hcl 50 Mg Tablet 50 Mg PO PRN Q6HRS PRN Furosemide 80 Mg Tablet 80 Mg PO DAILY Tradjenta (Linagliptin) 5 Mg Tablet 5 Mg PO DAILY Humalog (Insulin Lispro) 100 Unit/1 Ml Insuln.pen 35 Units SQ TIDAC Combivent Respimat Inhal (Ipratropium/Albuterol Sulfate) 4 Gm Aer.w.adap 2 Inh IH QID Januvia (Sitagliptin Phosphate) 50 Mg Tablet 25 Mg PO DAILY Metoprolol Tartrate 100 Mg Tablet 1 Tab PO BID Niaspan (Niacin) 500 Mg Tab.er.24h 1,000 Mg PO HS Travatan Z (Travoprost) 5 Ml Drops 1 Drop EACHEYE QHS Primidone 50 Mg Tablet 200 Mg PO HS Pantoprazole Sodium 40 Mg Tablet. 1 Tab PO DAILY Lipitor (Atorvastatin Calcium) 20 Mg Tablet 20 Mg PO HS Azopt (Brinzolamide) 10 Ml Drops.susp 10 Ml OP BID PRN Ecotrin (Aspirin) 81 Mg Tablet.dr 81 Mg PO DAILY Vitals/I & O Vital Sign - Last 24 Hours 05/04/17 05/04/17 05/04/17 05/04/17 14:55 15:48 17:08 18:08 Temp 97.7 97.7 Pulse 69 Resp 19 B/P (MAP) 137/60 (85) Pulse Ox 97 96 O2 Delivery Room Air Room Air Room Air Room Air O2 Flow Rate 10.0 05/04/17 05/04/17 05/04/17 05/04/17 19:00 19:38 20:01 20:33 Temp 97.8 97.8 Pulse 69 Resp 20 16 B/P (MAP) 125/61 (82) Pulse Ox 96 O2 Delivery Room Air Room Air Room Air Room Air 05/04/17 05/04/17 05/04/17 05/04/17 20:41 21:33 21:33 21:35 Pulse 69 Resp 16 16 16 B/P (MAP) 125/61 Pulse Ox 96 96 O2 Delivery Room Air Room Air 05/04/17 05/04/17 05/04/17 05/05/17 22:27 22:56 23:00 01:12 Temp 97.7 97.7 Pulse 70 Resp 18 B/P (MAP) 122/64 (83) Pulse Ox 96 99 O2 Delivery BiPAP/CPAP Room Air Room Air BiPAP/CPAP 05/05/17 05/05/17 05/05/17 05/05/17 03:00 07:00 07:16 07:30 Temp 97.3 97.5 97.3 97.5 Pulse 69 70 Resp 18 20 B/P (MAP) 132/69 (90) 114/57 (76) Pulse Ox 96 99 96 O2 Delivery Room Air Room Air Room Air Room Air 05/05/17 05/05/17 05/05/17 09:12 11:00 11:13 Pulse 70 71 Resp 20 B/P (MAP) 114/57 135/49 (77) Pulse Ox 100 O2 Delivery Room Air Room Air Intake and Output 05/04/17 05/04/17 05/05/17 15:00 23:00 07:00 Intake Total 1000 ml Output Total 220 ml 620 ml 700 ml Balance -220 ml -620 ml 300 ml Problem List Problems Medical Problems: (1) Generalized weakness Status: Acute (2) Urinary tract infection Status: Acute Assessment Anemia- with CRI and chronic illness, Hg stable, antibiotic and renal work-up noted, CPM Nausea- most likely multifactorial with DM contributing PAPITO STEELE MD May 05, 2017 13:39
[2017-05-05 15:00] VITALS: BP 165/75
--- NOTE | 2017-05-05 15:17 | PDOC ---
Infectious Disease Note Subjective Subjective Feeling better No further chills No fever ROS ROS CV: Denies chest pain RESP: Denies shortness of air, cough GI: Denies n/v/d Vital Sign Vital Signs Vital Signs Date Time Temp Pulse Resp B/P (MAP) Pulse Ox O2 Delivery O2 Flow Rate FiO2 05/05/17 11:13 Room Air 05/05/17 11:00 71 20 135/49 (77) 100 05/05/17 07:00 97.5 97.5 05/04/17 18:08 10.0 Physical Exam PHYSICAL EXAM GENERAL: -[place] male, propped up in bed, eating, in no apparent distress. General: Lying down, NAD LUNGS: Clear. HEART: Normal S1, S2. AICD ABDOMEN: Obese. Bowel sounds active. Soft, nontender. EXTREMITIES: LLE trace edema, venous stasis ulcers on both legs as well as small ulcers on the tip of the left toes. The wounds appear clean without evidence of infection. Left dorsalis pedis pulse weak. No cyanosis. SKIN: Without rash. NEUROLOGIC: Alert. Responds appropriately, follows commands. Labs Lab Laboratory Tests Test 05/04/17 16:35 05/04/17 21:03 05/05/17 05:05 05/05/17 07:10 Glucose (Fingerstick) 184 mg/dL (70-99) 227 mg/dL (70-99) 194 mg/dL (70-99) White Blood Count 7.4 x10^3/uL (4.0-11.0) Red Blood Count 3.29 x10^6/uL (4.30-5.70) Hemoglobin 10.5 g/dL (13.0-17.5) Hematocrit 33.3 % (39.0-53.0) Mean Corpuscular Volume 101 fL (79-100) Mean Corpuscular Hemoglobin 32 pg (25-35) Mean Corpuscular Hemoglobin Concent 32 g/dL (31-37) Red Cell Distribution Width 14.7 % (11.5-14.5) Platelet Count 130 x10^3/uL (140-400) Neutrophils (%) (Auto) 67 % (31-73) Lymphocytes (%) (Auto) 13 % (24-48) Monocytes (%) (Auto) 17 % (0-9) Eosinophils (%) (Auto) 3 % (0-3) Basophils (%) (Auto) 0 % (0-3) Neutrophils # (Auto) 4.9 x10^3uL (1.8-7.7) Lymphocytes # (Auto) 0.9 x10^3/uL (1.0-4.8) Monocytes # (Auto) 1.3 x10^3/uL (0.0-1.1) Eosinophils # (Auto) 0.2 x10^3/uL (0.0-0.7) Basophils # (Auto) 0.0 x10^3/uL (0.0-0.2) Reticulocyte Count (auto) 1.3 % (0.5-2.5) Sodium Level 140 mmol/L (136-145) Potassium Level 4.0 mmol/L (3.5-5.1) Chloride Level 105 mmol/L (98-107) Carbon Dioxide Level 30 mmol/L (21-32) Anion Gap 5 (6-14) Blood Urea Nitrogen 27 mg/dL (8-26) Creatinine 2.1 mg/dL (0.7-1.3) Estimated GFR (Cockcroft-Gault) 36.4 BUN/Creatinine Ratio 13 (6-20) Glucose Level 191 mg/dL (70-99) Calcium Level 8.0 mg/dL (8.5-10.1) Total Bilirubin 0.4 mg/dL (0.2-1.0) Aspartate Amino Transf (AST/SGOT) 34 U/L (15-37) Alanine Aminotransferase (ALT/SGPT) 18 U/L (16-63) Alkaline Phosphatase 42 U/L (46-116) Total Protein 6.7 g/dL (6.4-8.2) Albumin 2.4 g/dL (3.4-5.0) Albumin/Globulin Ratio 0.6 (1.0-1.7) Micro URINE CULTURE RES 1 Preliminary Comment Mixed urogenital bernarda BLOOD CULTURE Preliminary NO GROWTH AFTER 2 DAY Objective Assessment Leukocytosis, cultures NGTD Chronic venous ulcers lower extremities bilat, no evidence of infection CKD DM h/o seizures Chronic diastolic heart failure Plan Plan of Care Zosyn for now Cultures NGTD and wounds look clean f/u am labs Supportive care PT SEEN ,EXAMINED ,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
[2017-05-05] MEDS: HYDROcodone/APAP 5/325MG 1 TAB TABLET PO PRN (17:07)
[2017-05-05 19:00] VITALS: BP 110/57
[2017-05-05] MEDS: PRIMIDONE 50 MG TABLET PO SCH (20:22)
[2017-05-05] MEDS: NIACIN ER 500 MG TABLET.ER PO SCH (20:22)
[2017-05-05] MEDS: ATORVASTATIN CALCIUM 20 MG TABLET PO SCH (20:24)
[2017-05-05] MEDS: LATANOPROST 0.005% OPHTH SOLUTION 2.5ML BOTTLE. OU SCH (20:25)
[2017-05-05] MEDS: INSULIN DETEMIR 300 UNITS/3 ML INSULN.PEN. SQ SCH (20:31)
[2017-05-05 23:00] VITALS: BP 136/69
--- NOTE | 2017-05-06 01:56 | CONS ---
DATE OF CONSULTATION: 05/05/2017 HISTORY OF PRESENT ILLNESS: The patient is an 87-year-old gentleman who is known to have chronic renal insufficiency, stage 4 at least for the year of 2017. He has had creatinines running on the high side since 2013. He is known to be diabetic and hypertensive longstanding. A recent CT has shown renal sclerosis/atrophic kidneys also. He previously had issues with bladder outlet obstruction and BPH, which appears to have resolved currently. He runs a baseline creatinine of about 2-2.4. In this setting, he was admitted to the hospital for febrile illness in the setting of chronic venous stasis ulcers with possible UTI. He has been evaluated by Infectious Disease and GI for nausea and anemia. He was noted to be anemic at presentation. Most recent hemoglobin was 10.5. In this setting, we were asked to see him for his chronic renal insufficiency also. He does have dysuria, urgency, frequency at presentation, but this appears to have resolved currently. Urine culture was grossly negative. He remains on diuretics for his CHF, and is currently on piperacillin and tazobactam. Vancomycin has been administered in the past. We will watch trend of creatinine. Bladder scan will also be obtained. NHI DUMONT MD DR: HUGH/danielle JOB#: [id number] / [id number]
[2017-05-06 03:00] VITALS: BP 170/81
[2017-05-06 03:18] LABS: BASO % 0 % (0-3); EOS % 3 % (0-3); HEMATOCRIT 34.5 % (39.0-53.0); HEMOGLOBIN 10.9 g/dL (13.0-17.5); LYMPH # 1.4 x10^3/uL (1.0-4.8); LYMPH % 15 % (24-48); MEAN CORPUSCULAR HEMOGLOBIN 32 pg (25-35); MEAN CORPUSCULAR HGB CONC 32 g/dL (31-37); MEAN CORPUSCULAR VOLUME 101 fL (79-100); MONO % 18 % (0-9); NEUT % 64 % (31-73); PLATELET COUNT 136 x10^3/uL (140-400); RED BLOOD COUNT 3.41 x10^6/uL (4.30-5.70); RED CELL DISTRIBUTION WIDTH 14.8 % (11.5-14.5); WHITE BLOOD COUNT 9.1 x10^3/uL (4.0-11.0)
[2017-05-06 03:50] LABS: ALBUMIN 2.5 g/dL (3.4-5.0); ALBUMIN/GLOBULIN RATIO 0.5 (1.0-1.7); CALCIUM 8.4 mg/dL (8.5-10.1); CREATININE 2.3 mg/dL (0.7-1.3); GFR 32.8; MAGNESIUM 1.8 mg/dL (1.8-2.4); PHOSPHORUS 4.6 mg/dL (2.6-4.7); POTASSIUM 3.9 mmol/L (3.5-5.1); TOTAL BILIRUBIN 0.3 mg/dL (0.2-1.0); TOTAL PROTEIN 7.1 g/dL (6.4-8.2)
[2017-05-06] MEDS: PIPERACILLIN/TAZO IV Push 3.375 GM VIAL. IVP SCH (05:31)
[2017-05-06 07:00] VITALS: BP 167/72
[2017-05-06] MEDS: IPRATRPIUM/ALBUTEROL 0.5/2.5MG 3 ML NEBU. NEB SCH ×2 (07:40→11:58)
[2017-05-06] MEDS: INSULIN ASPART 300 UNITS/3 ML INSULN.PEN SQ SCH ×4 (08:00→12:39)
[2017-05-06] MEDS: LACTOBACILLUS RHAMNOSUS GG 1 CAPSULE. PO SCH (08:52)
[2017-05-06] MEDS: GABAPENTIN 300 MG CAPSULE. PO SCH (08:52)
[2017-05-06] MEDS: PANTOPRAZOLE 40 MG TABLET.DR. PO SCH (08:52)
[2017-05-06] MEDS: ASPIRIN ENTERIC COATED 81 MG TABLET.DR. PO SCH (08:52)
[2017-05-06] MEDS: LINAGLIPTIN 5 MG TABLET PO SCH (08:52)
[2017-05-06] MEDS: FUROSEMIDE 80 MG TABLET. PO SCH (08:52)
[2017-05-06] MEDS: METOPROLOL TART IMMED RELEASE 50 MG TABLET. PO SCH (08:53)
[2017-05-06] MEDS: DORZOLAMIDE 2% OPHTH SOLUTION 10ML BOTTLE. OU SCH (08:54)
[2017-05-06] MEDS ORDERED: POLYETHYLENE GLYCOL 3350 17 GM PACKET. PO ONE (09:15)
[2017-05-06] MEDS ORDERED: BISACODYL 10 MG SUPP.RECT. PR ONE (09:15)
--- NOTE | 2017-05-06 09:15 | PDOC ---
SUBJECTIVE ROS CKD III doing well c/o constipation CVS: no Orthopnea, no CP RESP: no SOB, no MIKE GI: no Nausea, no Vomiting : no Dysuria, no Urgency OBJECTIVE Vital Signs Vital Signs Date Time Temp Pulse Resp B/P (MAP) Pulse Ox O2 Delivery O2 Flow Rate FiO2 05/06/17 08:53 70 167/72 05/06/17 07:42 94 Room Air 05/06/17 07:00 97.7 18 97.7 05/05/17 20:00 10.0 I & 0 Intake and Output 05/06/17 07:00 Intake Total 530 ml Output Total 2730 ml Balance -2200 ml Intake Oral 530 ml Output Urine Total 2730 ml PHYSICAL EXAM Physical Exam General Appearance: Awake Alert Oriented x 3 In no Distress Eyes: VIsion Unchanged Conjunctiva Normal EN: No EN Drainage Mucous Memb. moist - Poor dentitition Neck: no JVD no JVP Supple no Thyromegaly CVS: S1 S2 ? Soft Murmur No Gallop No Rub tr Edema Resp: no Rales no Rhonchi no Acc. Muscle use GI: BS +ve NO Bruit Non Tender Non Distended : no CVA tenderness; no Suprapubic Tenderness Assessment & Plan CKD III - DM/ HTNsive / NS stable creat from prior baseline: Current FLuid and E-lyte status does not necessitate emergent need for Dialysis. Will re- evaluate for Dialysis in am; recent CT has shown: Atherosclerotic abdominal aorta, no aneurysm. Atrophic kidneys. No hydronephrosis, hence no further imaging studies ordered. Hold lasix since Creat is ^ today Anemia - presumably due to Renal dysfunction; may need Epogen started if symptomatic. Transfuse as needed. HypoAlbuminemia - with ? malnutrition - vs de to infection. check Protein for proteinuria HTN with CKD: adequately controlled on Current BP meds until yest, now ^ - unclear etio Constipation - see O Discussed Plan of Care and prognosis etc. at length with pt at bedside COMMENT/RELEVANT DATA Meds Current Medications Medications (Trade) Dose Ordered Sig/Heavenly Start Time Stop Time Status Last Admin Dose Admin Acetaminophen/ Hydrocodone Bitart (Lortab 5/325) 1 tab PRN Q6HRS PRN 05/03/17 19:00 05/05/17 17:07 1 TAB Albuterol/ Ipratropium (Duoneb) 3 ml RTQID 05/03/17 20:00 05/06/17 07:40 3 ML Aspirin (Ecotrin) 81 mg DAILY 05/04/17 09:00 05/06/17 08:52 81 MG Atorvastatin Calcium (Lipitor) 20 mg HS 05/03/17 21:00 05/05/17 20:24 20 MG Dextrose (Dextrose 50%-Water Syringe) 12.5 gm PRN Q15MIN PRN 05/03/17 19:00 Dorzolamide HCl (Trusopt) 1 drop TID 05/03/17 21:00 05/06/17 08:54 1 DROP Furosemide (Lasix) 80 mg DAILY 05/04/17 09:00 05/06/17 08:52 80 MG Gabapentin (Neurontin) 300 mg BID 05/03/17 21:00 05/06/17 08:52 300 MG Hydralazine HCl (Apresoline Inj) 10 mg PRN Q4HRS PRN 05/03/17 19:00 05/04/17 13:33 10 MG Insulin Aspart (NovoLOG) 0-5 UNITS TIDWMEALS 05/04/17 08:00 05/05/17 11:56 2 UNITS Insulin Detemir (Levemir) 40 units QHS 05/03/17 21:00 05/05/17 20:31 40 UNITS Lactobacillus Rhamnosus (Culturelle) 1 cap BID 05/04/17 21:00 05/06/17 08:52 1 CAP Latanoprost (Xalatan) 1 drop QHS 05/03/17 21:00 05/05/17 20:25 1 DROP Levofloxacin/ Dextrose 100 ml @ 100 mls/hr 1X ONCE 05/03/17 14:30 05/03/17 15:29 DC 05/03/17 14:54 100 MLS/HR Linagliptin (Tradjenta) 5 mg DAILY 05/04/17 09:00 05/06/17 08:52 5 MG Magnesium Sulfate/ Dextrose 50 ml @ 25 mls/hr PRN DAILY PRN 05/05/17 12:45 Metoprolol Tartrate (Lopressor) 100 mg BID 05/03/17 21:00 05/06/17 08:53 100 MG Morphine Sulfate 2 mg PRN Q2HR PRN 05/03/17 15:15 05/04/17 15:14 DC 05/03/17 16:57 2 MG Niacin (Slo-Niacin) 1,000 mg HS 05/03/17 21:00 05/05/17 20:22 1,000 MG Non-Formulary Medication 25 mg DAILY 05/04/17 09:00 UNV Ondansetron HCl (Zofran) 4 mg PRN Q6HRS PRN 05/03/17 19:00 05/03/17 19:14 4 MG Pantoprazole Sodium (Protonix) 40 mg DAILYAC 05/04/17 07:30 05/06/17 08:52 40 MG Piperacillin Sod/ Tazobactam Sod (Zosyn Per Pharmacy) 1 each PRN DAILY PRN 05/03/17 19:00 Piperacillin Sod/ Tazobactam Sod (Zosyn) 3.375 gm Q6HRS 05/03/17 21:00 05/06/17 05:31 3.375 GM Primidone (Mysoline) 200 mg HS 05/03/17 21:00 05/05/17 20:22 200 MG Sodium Chloride 1,000 ml @ 75 mls/hr [id number] 05/03/17 15:03 05/04/17 15:02 DC 05/05/17 03:11 75 MLS/HR Tramadol HCl (Ultram) 50 mg PRN Q6HRS PRN 05/03/17 19:00 05/04/17 21:33 50 MG Vancomycin HCl 1 each 1X ONCE 05/05/17 19:30 05/05/17 19:30 DC Vancomycin HCl (Vanco Per Pharmacy) 1 each PRN DAILY PRN 05/03/17 19:00 05/04/17 17:47 DC 05/04/17 09:07 1 EACH Vancomycin HCl 1.75 gm/Dextrose 500 ml @ 250 mls/hr Q24H 05/03/17 20:00 05/04/17 17:47 DC 05/03/17 21:18 250 MLS/HR Lab Laboratory Tests Test 05/05/17 11:23 05/05/17 16:50 05/05/17 20:20 05/06/17 03:05 Glucose (Fingerstick) 177 mg/dL (70-99) 226 mg/dL (70-99) 165 mg/dL (70-99) White Blood Count 9.1 x10^3/uL (4.0-11.0) Red Blood Count 3.41 x10^6/uL (4.30-5.70) Hemoglobin 10.9 g/dL (13.0-17.5) Hematocrit 34.5 % (39.0-53.0) Mean Corpuscular Volume 101 fL (79-100) Mean Corpuscular Hemoglobin 32 pg (25-35) Mean Corpuscular Hemoglobin Concent 32 g/dL (31-37) Red Cell Distribution Width 14.8 % (11.5-14.5) Platelet Count 136 x10^3/uL (140-400) Neutrophils (%) (Auto) 64 % (31-73) Lymphocytes (%) (Auto) 15 % (24-48) Monocytes (%) (Auto) 18 % (0-9) Eosinophils (%) (Auto) 3 % (0-3) Basophils (%) (Auto) 0 % (0-3) Neutrophils # (Auto) 5.9 x10^3uL (1.8-7.7) Lymphocytes # (Auto) 1.4 x10^3/uL (1.0-4.8) Monocytes # (Auto) 1.6 x10^3/uL (0.0-1.1) Eosinophils # (Auto) 0.2 x10^3/uL (0.0-0.7) Basophils # (Auto) 0.0 x10^3/uL (0.0-0.2) Sodium Level 140 mmol/L (136-145) Potassium Level 3.9 mmol/L (3.5-5.1) Chloride Level 103 mmol/L (98-107) Carbon Dioxide Level 31 mmol/L (21-32) Anion Gap 6 (6-14) Blood Urea Nitrogen 30 mg/dL (8-26) Creatinine 2.3 mg/dL (0.7-1.3) Estimated GFR (Cockcroft-Gault) 32.8 BUN/Creatinine Ratio 13 (6-20) Glucose Level 123 mg/dL (70-99) Calcium Level 8.4 mg/dL (8.5-10.1) Phosphorus Level 4.6 mg/dL (2.6-4.7) Magnesium Level 1.8 mg/dL (1.8-2.4) Total Bilirubin 0.3 mg/dL (0.2-1.0) Aspartate Amino Transf (AST/SGOT) 23 U/L (15-37) Alanine Aminotransferase (ALT/SGPT) 23 U/L (16-63) Alkaline Phosphatase 43 U/L (46-116) Total Protein 7.1 g/dL (6.4-8.2) Albumin 2.5 g/dL (3.4-5.0) Albumin/Globulin Ratio 0.5 (1.0-1.7) Test 05/06/17 07:34 Glucose (Fingerstick) 120 mg/dL (70-99) NHI DUMONT MD May 06, 2017 09:15
[2017-05-06 09:36] LABS: FOLATE 12.79 ng/ml (3.2-20.0)
--- NOTE | 2017-05-06 09:38 | PDOC ---
Infectious Disease Note Subjective Subjective Feeling better No further chills No fever ROS ROS GEN: Denies fevers, chills, sweats HEENT: Denies blurred vision, sore throat CV: Denies chest pain RESP: Denies shortness of air, cough GI: Denies n/v/d NEURO: Denies confusion, dizziness MSK: Denies weakness, joint pain/swelling Vital Sign Vital Signs Vital Signs Date Time Temp Pulse Resp B/P (MAP) Pulse Ox O2 Delivery O2 Flow Rate FiO2 05/06/17 08:53 70 167/72 05/06/17 07:42 94 Room Air 05/06/17 07:00 97.7 18 97.7 05/05/17 20:00 10.0 Physical Exam PHYSICAL EXAM GENERAL: NAD, Alert HEENT: PERRL, OC/OP NECK: Supple, no JVD, no LN LUNGS: Clear HEART: S1S2, no gallop, no murmur ABD: Soft, NT, no organomegaly, no rebound EXT: No edema, no cyanosis,, leg ulcers clean 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, oriented x 3, no focal neurologic deficit SKIN: No rash IV: ok Labs Lab Laboratory Tests Test 05/05/17 11:23 05/05/17 16:50 05/05/17 20:20 05/06/17 03:05 Glucose (Fingerstick) 177 mg/dL (70-99) 226 mg/dL (70-99) 165 mg/dL (70-99) White Blood Count 9.1 x10^3/uL (4.0-11.0) Red Blood Count 3.41 x10^6/uL (4.30-5.70) Hemoglobin 10.9 g/dL (13.0-17.5) Hematocrit 34.5 % (39.0-53.0) Mean Corpuscular Volume 101 fL (79-100) Mean Corpuscular Hemoglobin 32 pg (25-35) Mean Corpuscular Hemoglobin Concent 32 g/dL (31-37) Red Cell Distribution Width 14.8 % (11.5-14.5) Platelet Count 136 x10^3/uL (140-400) Neutrophils (%) (Auto) 64 % (31-73) Lymphocytes (%) (Auto) 15 % (24-48) Monocytes (%) (Auto) 18 % (0-9) Eosinophils (%) (Auto) 3 % (0-3) Basophils (%) (Auto) 0 % (0-3) Neutrophils # (Auto) 5.9 x10^3uL (1.8-7.7) Lymphocytes # (Auto) 1.4 x10^3/uL (1.0-4.8) Monocytes # (Auto) 1.6 x10^3/uL (0.0-1.1) Eosinophils # (Auto) 0.2 x10^3/uL (0.0-0.7) Basophils # (Auto) 0.0 x10^3/uL (0.0-0.2) Sodium Level 140 mmol/L (136-145) Potassium Level 3.9 mmol/L (3.5-5.1) Chloride Level 103 mmol/L (98-107) Carbon Dioxide Level 31 mmol/L (21-32) Anion Gap 6 (6-14) Blood Urea Nitrogen 30 mg/dL (8-26) Creatinine 2.3 mg/dL (0.7-1.3) Estimated GFR (Cockcroft-Gault) 32.8 BUN/Creatinine Ratio 13 (6-20) Glucose Level 123 mg/dL (70-99) Calcium Level 8.4 mg/dL (8.5-10.1) Phosphorus Level 4.6 mg/dL (2.6-4.7) Magnesium Level 1.8 mg/dL (1.8-2.4) Total Bilirubin 0.3 mg/dL (0.2-1.0) Aspartate Amino Transf (AST/SGOT) 23 U/L (15-37) Alanine Aminotransferase (ALT/SGPT) 23 U/L (16-63) Alkaline Phosphatase 43 U/L (46-116) Total Protein 7.1 g/dL (6.4-8.2) Albumin 2.5 g/dL (3.4-5.0) Albumin/Globulin Ratio 0.5 (1.0-1.7) Test 05/06/17 07:34 Glucose (Fingerstick) 120 mg/dL (70-99) Micro culture neg Objective Assessment Leukocytosis, cultures NGTD Chronic venous ulcers lower extremities bilat, no evidence of infection CKD DM h/o seizures Chronic diastolic heart failure Plan Plan of Care change Zosyn to po augmentin x 5 days Cultures NGTD and wounds look clean f/u am labs Supportive care d/c PHILIPPE Landin MD May 06, 2017 09:38
[2017-05-06] MEDS ORDERED: DOCUSATE SODIUM 100 MG CAPSULE. PO SCH (10:00)
--- NOTE | 2017-05-06 10:27 | PDOC ---
Subjective: Subjective: Denies nausea and abd pain. Feels constipated, last BM 3-4 days ago. Objective: Vital Signs: Vital Signs Date Time Temp Pulse Resp B/P (MAP) Pulse Ox O2 Delivery O2 Flow Rate FiO2 05/06/17 08:53 70 167/72 05/06/17 07:42 94 Room Air 05/06/17 07:00 97.7 18 97.7 05/05/17 20:00 10.0 Labs: Laboratory Tests Test 05/05/17 11:23 05/05/17 16:50 05/05/17 20:20 05/06/17 03:05 Glucose (Fingerstick) 177 mg/dL 226 mg/dL 165 mg/dL White Blood Count 9.1 x10^3/uL Red Blood Count 3.41 x10^6/uL Hemoglobin 10.9 g/dL Hematocrit 34.5 % Mean Corpuscular Volume 101 fL Mean Corpuscular Hemoglobin 32 pg Mean Corpuscular Hemoglobin Concent 32 g/dL Red Cell Distribution Width 14.8 % Platelet Count 136 x10^3/uL Neutrophils (%) (Auto) 64 % Lymphocytes (%) (Auto) 15 % Monocytes (%) (Auto) 18 % Eosinophils (%) (Auto) 3 % Basophils (%) (Auto) 0 % Neutrophils # (Auto) 5.9 x10^3uL Lymphocytes # (Auto) 1.4 x10^3/uL Monocytes # (Auto) 1.6 x10^3/uL Eosinophils # (Auto) 0.2 x10^3/uL Basophils # (Auto) 0.0 x10^3/uL Sodium Level 140 mmol/L Potassium Level 3.9 mmol/L Chloride Level 103 mmol/L Carbon Dioxide Level 31 mmol/L Anion Gap 6 Blood Urea Nitrogen 30 mg/dL Creatinine 2.3 mg/dL Estimated GFR (Cockcroft-Gault) 32.8 BUN/Creatinine Ratio 13 Glucose Level 123 mg/dL Calcium Level 8.4 mg/dL Phosphorus Level 4.6 mg/dL Magnesium Level 1.8 mg/dL Total Bilirubin 0.3 mg/dL Aspartate Amino Transf (AST/SGOT) 23 U/L Alanine Aminotransferase (ALT/SGPT) 23 U/L Alkaline Phosphatase 43 U/L Total Protein 7.1 g/dL Albumin 2.5 g/dL Albumin/Globulin Ratio 0.5 Test 05/06/17 07:34 Glucose (Fingerstick) 120 mg/dL PE: GEN: NAD, drinking coffee LUNGS: CTAB HEART: RRR ABD: BS+, non-tender NEURO/PSYCH: A & O 3 A/P: Nausea - resolved -h/o DM, on PPI Anemia - stable -h/o CKD, B12 low -on ASA Constipation Leukocytosis (resolved), chronic LE wounds -- Add Miralax, B12. Continue PPI. YAJAIRA LAROSE May 06, 2017 10:27
[2017-05-06] MEDS ORDERED: GABA-585 PO (10:52)
[2017-05-06] MEDS ORDERED: AMOX1TAB61 PO (10:52)
--- NOTE | 2017-05-06 10:56 | PDOC3 ---
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 Final Diagnosis Problems Medical Problems: (1) Generalized weakness Status: Acute (2) Urinary tract infection Status: Acute Brief Hospital Course Allergies Allergies Coded Allergies Type Severity Reaction Last Updated Verified No Known Drug Allergies 08/02/13 No Vital Signs Vital Signs Date Time Temp Pulse Resp B/P (MAP) Pulse Ox O2 Delivery O2 Flow Rate FiO2 05/06/17 08:53 70 167/72 05/06/17 07:42 94 Room Air 05/06/17 07:00 97.7 18 97.7 05/05/17 20:00 10.0 Lab Results Laboratory Tests Test 05/04/17 11:34 05/04/17 13:39 05/04/17 16:35 05/04/17 21:03 Glucose (Fingerstick) 212 mg/dL (70-99) 184 mg/dL (70-99) 227 mg/dL (70-99) Iron Level 48 ug/dL (65-175) Total Iron Binding Capacity 186 ug/dL (250-450) Iron Saturation 26 % (15-34) Vitamin B12 Level 194 pg/mL (247-911) Serum Folate 12.79 ng/ml (3.2-20.0) Test 05/05/17 05:05 05/05/17 07:10 05/05/17 11:23 05/05/17 16:50 White Blood Count 7.4 x10^3/uL (4.0-11.0) Red Blood Count 3.29 x10^6/uL (4.30-5.70) Hemoglobin 10.5 g/dL (13.0-17.5) Hematocrit 33.3 % (39.0-53.0) Mean Corpuscular Volume 101 fL (79-100) Mean Corpuscular Hemoglobin 32 pg (25-35) Mean Corpuscular Hemoglobin Concent 32 g/dL (31-37) Red Cell Distribution Width 14.7 % (11.5-14.5) Platelet Count 130 x10^3/uL (140-400) Neutrophils (%) (Auto) 67 % (31-73) Lymphocytes (%) (Auto) 13 % (24-48) Monocytes (%) (Auto) 17 % (0-9) Eosinophils (%) (Auto) 3 % (0-3) Basophils (%) (Auto) 0 % (0-3) Neutrophils # (Auto) 4.9 x10^3uL (1.8-7.7) Lymphocytes # (Auto) 0.9 x10^3/uL (1.0-4.8) Monocytes # (Auto) 1.3 x10^3/uL (0.0-1.1) Eosinophils # (Auto) 0.2 x10^3/uL (0.0-0.7) Basophils # (Auto) 0.0 x10^3/uL (0.0-0.2) Reticulocyte Count (auto) 1.3 % (0.5-2.5) Sodium Level 140 mmol/L (136-145) Potassium Level 4.0 mmol/L (3.5-5.1) Chloride Level 105 mmol/L (98-107) Carbon Dioxide Level 30 mmol/L (21-32) Anion Gap 5 (6-14) Blood Urea Nitrogen 27 mg/dL (8-26) Creatinine 2.1 mg/dL (0.7-1.3) Estimated GFR (Cockcroft-Gault) 36.4 BUN/Creatinine Ratio 13 (6-20) Glucose Level 191 mg/dL (70-99) Calcium Level 8.0 mg/dL (8.5-10.1) Total Bilirubin 0.4 mg/dL (0.2-1.0) Aspartate Amino Transf (AST/SGOT) 34 U/L (15-37) Alanine Aminotransferase (ALT/SGPT) 18 U/L (16-63) Alkaline Phosphatase 42 U/L (46-116) Total Protein 6.7 g/dL (6.4-8.2) Albumin 2.4 g/dL (3.4-5.0) Albumin/Globulin Ratio 0.6 (1.0-1.7) Glucose (Fingerstick) 194 mg/dL (70-99) 177 mg/dL (70-99) 226 mg/dL (70-99) Test 05/05/17 20:20 05/06/17 03:05 05/06/17 07:34 Glucose (Fingerstick) 165 mg/dL (70-99) 120 mg/dL (70-99) White Blood Count 9.1 x10^3/uL (4.0-11.0) Red Blood Count 3.41 x10^6/uL (4.30-5.70) Hemoglobin 10.9 g/dL (13.0-17.5) Hematocrit 34.5 % (39.0-53.0) Mean Corpuscular Volume 101 fL (79-100) Mean Corpuscular Hemoglobin 32 pg (25-35) Mean Corpuscular Hemoglobin Concent 32 g/dL (31-37) Red Cell Distribution Width 14.8 % (11.5-14.5) Platelet Count 136 x10^3/uL (140-400) Neutrophils (%) (Auto) 64 % (31-73) Lymphocytes (%) (Auto) 15 % (24-48) Monocytes (%) (Auto) 18 % (0-9) Eosinophils (%) (Auto) 3 % (0-3) Basophils (%) (Auto) 0 % (0-3) Neutrophils # (Auto) 5.9 x10^3uL (1.8-7.7) Lymphocytes # (Auto) 1.4 x10^3/uL (1.0-4.8) Monocytes # (Auto) 1.6 x10^3/uL (0.0-1.1) Eosinophils # (Auto) 0.2 x10^3/uL (0.0-0.7) Basophils # (Auto) 0.0 x10^3/uL (0.0-0.2) Sodium Level 140 mmol/L (136-145) Potassium Level 3.9 mmol/L (3.5-5.1) Chloride Level 103 mmol/L (98-107) Carbon Dioxide Level 31 mmol/L (21-32) Anion Gap 6 (6-14) Blood Urea Nitrogen 30 mg/dL (8-26) Creatinine 2.3 mg/dL (0.7-1.3) Estimated GFR (Cockcroft-Gault) 32.8 BUN/Creatinine Ratio 13 (6-20) Glucose Level 123 mg/dL (70-99) Calcium Level 8.4 mg/dL (8.5-10.1) Phosphorus Level 4.6 mg/dL (2.6-4.7) Magnesium Level 1.8 mg/dL (1.8-2.4) Total Bilirubin 0.3 mg/dL (0.2-1.0) Aspartate Amino Transf (AST/SGOT) 23 U/L (15-37) Alanine Aminotransferase (ALT/SGPT) 23 U/L (16-63) Alkaline Phosphatase 43 U/L (46-116) Total Protein 7.1 g/dL (6.4-8.2) Albumin 2.5 g/dL (3.4-5.0) Albumin/Globulin Ratio 0.5 (1.0-1.7) Laboratory Tests Test 05/05/17 11:23 05/05/17 16:50 05/05/17 20:20 05/06/17 03:05 Glucose (Fingerstick) 177 mg/dL (70-99) 226 mg/dL (70-99) 165 mg/dL (70-99) White Blood Count 9.1 x10^3/uL (4.0-11.0) Red Blood Count 3.41 x10^6/uL (4.30-5.70) Hemoglobin 10.9 g/dL (13.0-17.5) Hematocrit 34.5 % (39.0-53.0) Mean Corpuscular Volume 101 fL (79-100) Mean Corpuscular Hemoglobin 32 pg (25-35) Mean Corpuscular Hemoglobin Concent 32 g/dL (31-37) Red Cell Distribution Width 14.8 % (11.5-14.5) Platelet Count 136 x10^3/uL (140-400) Neutrophils (%) (Auto) 64 % (31-73) Lymphocytes (%) (Auto) 15 % (24-48) Monocytes (%) (Auto) 18 % (0-9) Eosinophils (%) (Auto) 3 % (0-3) Basophils (%) (Auto) 0 % (0-3) Neutrophils # (Auto) 5.9 x10^3uL (1.8-7.7) Lymphocytes # (Auto) 1.4 x10^3/uL (1.0-4.8) Monocytes # (Auto) 1.6 x10^3/uL (0.0-1.1) Eosinophils # (Auto) 0.2 x10^3/uL (0.0-0.7) Basophils # (Auto) 0.0 x10^3/uL (0.0-0.2) Sodium Level 140 mmol/L (136-145) Potassium Level 3.9 mmol/L (3.5-5.1) Chloride Level 103 mmol/L (98-107) Carbon Dioxide Level 31 mmol/L (21-32) Anion Gap 6 (6-14) Blood Urea Nitrogen 30 mg/dL (8-26) Creatinine 2.3 mg/dL (0.7-1.3) Estimated GFR (Cockcroft-Gault) 32.8 BUN/Creatinine Ratio 13 (6-20) Glucose Level 123 mg/dL (70-99) Calcium Level 8.4 mg/dL (8.5-10.1) Phosphorus Level 4.6 mg/dL (2.6-4.7) Magnesium Level 1.8 mg/dL (1.8-2.4) Total Bilirubin 0.3 mg/dL (0.2-1.0) Aspartate Amino Transf (AST/SGOT) 23 U/L (15-37) Alanine Aminotransferase (ALT/SGPT) 23 U/L (16-63) Alkaline Phosphatase 43 U/L (46-116) Total Protein 7.1 g/dL (6.4-8.2) Albumin 2.5 g/dL (3.4-5.0) Albumin/Globulin Ratio 0.5 (1.0-1.7) Test 05/06/17 07:34 Glucose (Fingerstick) 120 mg/dL (70-99) Brief Hospital Course Mr. Stokes is a 87 old AA male with lost of co morbids, CKD 3, chronic diastolic HF, CP with recent [facility] no stents placed feb 2017, admitted for fevers , sirs - co managed with ID, NGTD, now on PO augmentin, Finally agreeable to HH, . scripts written Vinicius Lassiter re wrist tingling and numbness since the [facility], appt Eladio nobles 9:30 AM Vinicius Lassiter and pt, 2 visits today Time 34mins Discharge Information Condition at Discharge: Improved, Stable Disposition/Orders: D/C to Home w/ HH Scheduled Aspirin (Ecotrin), 81 MG PO DAILY, (Reported) Atorvastatin Calcium (Lipitor), 20 MG PO HS, (Reported) Furosemide (Furosemide), 80 MG PO DAILY, (Reported) Gabapentin (Gabapentin), 300 MG PO BID Insulin Detemir (Levemir), 40 UNIT SQ QHS Insulin Lispro (Humalog), 35 UNITS SQ TIDAC, (Reported) Ipratropium/Albuterol Sulfate (Combivent Respimat Inhal), 2 INH IH QID, ( Reported) Linagliptin (Tradjenta), 5 MG PO DAILY, (Reported) Metoprolol Tartrate (Metoprolol Tartrate), 1 TAB PO BID, (Reported) Niacin (Niaspan), 1,000 MG PO HS, (Reported) Niacin (Niacin Er), 1,000 MG PO DAILY, (Reported) Pantoprazole Sodium (Pantoprazole Sodium), 1 TAB PO DAILY, (Reported) Primidone (Primidone), 200 MG PO HS, (Reported) Sitagliptin Phosphate (Januvia), 25 MG PO DAILY, (Reported) Travoprost (Travatan Z), 1 DROP EACHEYE QHS, (Reported) Scheduled PRN Brinzolamide (Azopt), 10 ML OP BID PRN for DRY EYE, (Reported) Hydrocodone Bit/Acetaminophen (Hydrocodone-Apap 5-325 ), 1 TAB PO PRN Q6HRS PRN for PAIN, (Reported) Tramadol Hcl (Tramadol Hcl), 50 MG PO PRN Q6HRS PRN for PAIN, (Reported) LUIS FERNANDO PARSON MD May 06, 2017 10:56
[2017-05-06 11:00] VITALS: BP 184/71
[2017-05-06] MEDS ORDERED: CYANOCOBALAMIN (VITAMIN B-12) 1,000 MCG TABLET. PO SCH (11:00)
[2017-05-06] MEDS ORDERED: POLYETHYLENE GLYCOL 3350 17 GM PACKET. PO SCH (11:00)
[2017-05-06] MEDS ORDERED: AMOXICILLIN/K CLAV 875/125MG TABLET. PO SCH (12:00)
[2017-05-06] MEDS ORDERED: CYANOCOBALAMIN (VITAMIN B-12) 1,000 MCG/ML VIAL IM SCH (15:00)
== END 2017-05-06 13:30 | disposition home health service (06) | DRG 291 ==
LOC: ER 11:18 → 5 NORTH 14:30
PROVIDERS: ADMIT Internal Medicine Hematology & Oncology; ATTEND Internal Medicine Hematology & Oncology
PROC: 5A09357 Assistance with Respiratory Ventilation, Less than 24 Consecutive Hours, Continuous Positive Airway Pressure (ICD-10-PCS; principal; 2017-05-03)
PROC: 5A09357 Assistance with Respiratory Ventilation, Less than 24 Consecutive Hours, Continuous Positive Airway Pressure (ICD-10-PCS; 2017-05-04)
PROC: 5A09357 Assistance with Respiratory Ventilation, Less than 24 Consecutive Hours, Continuous Positive Airway Pressure (ICD-10-PCS; 2017-05-05)
PROC: 5A09357 Assistance with Respiratory Ventilation, Less than 24 Consecutive Hours, Continuous Positive Airway Pressure (ICD-10-PCS; 2017-05-06)
DX: I13.0 Hypertensive heart and chronic kidney disease with heart failure and stage 1 through stage 4 chronic kidney disease, or unspecified chronic kidney disease (principal); G93.40 Encephalopathy, unspecified; R65.10 Systemic inflammatory response syndrome (SIRS) of non-infectious origin without acute organ dysfunction; E11.40 Type 2 diabetes mellitus with diabetic neuropathy, unspecified; E11.22 Type 2 diabetes mellitus with diabetic chronic kidney disease; N18.4 Chronic kidney disease, stage 4 (severe); E66.01 Morbid (severe) obesity due to excess calories; E11.621 Type 2 diabetes mellitus with foot ulcer; N39.0 Urinary tract infection, site not specified; I50.32 Chronic diastolic (congestive) heart failure; Z68.41 Body mass index [BMI] 40.0-44.9, adult; L97.519 Non-pressure chronic ulcer of other part of right foot with unspecified severity; E11.622 Type 2 diabetes mellitus with other skin ulcer; D51.0 Vitamin B12 deficiency anemia due to intrinsic factor deficiency; D63.1 Anemia in chronic kidney disease; L97.529 Non-pressure chronic ulcer of other part of left foot with unspecified severity; E78.00 Pure hypercholesterolemia, unspecified; E78.5 Hyperlipidemia, unspecified; F03.90 Unspecified dementia, unspecified severity, without behavioral disturbance, psychotic disturbance, mood disturbance, and anxiety; G25.0 Essential tremor; I25.10 Atherosclerotic heart disease of native coronary artery without angina pectoris; I83.009 Varicose veins of unspecified lower extremity with ulcer of unspecified site; J44.9 Chronic obstructive pulmonary disease, unspecified; K21.9 Gastro-esophageal reflux disease without esophagitis; S91.309A Unspecified open wound, unspecified foot, initial encounter; M19.90 Unspecified osteoarthritis, unspecified site; K59.00 Constipation, unspecified; Z85.46 Personal history of malignant neoplasm of prostate; Z79.4 Long term (current) use of insulin; Z86.73 Personal history of transient ischemic attack (TIA), and cerebral infarction without residual deficits; Z87.891 Personal history of nicotine dependence; Z87.440 Personal history of urinary (tract) infections; Z90.49 Acquired absence of other specified parts of digestive tract; Z95.0 Presence of cardiac pacemaker; Z95.5 Presence of coronary angioplasty implant and graft; Z95.810 Presence of automatic (implantable) cardiac defibrillator; Z80.9 Family history of malignant neoplasm, unspecified; Z82.49 Family history of ischemic heart disease and other diseases of the circulatory system; Z79.899 Other long term (current) drug therapy; R53.1 Weakness
CPT/HCPCS: 36415; 71010; 80048; 80053; 81001; 82570; 82607; 82746; 82962; 83540; 83550; 83605; 83735; 84100; 84156; 85025; 85045; 86140; 87040; 87086; 87804; 94250; 94640; 94660; 94760; 96365; J0360; J1815; J1956; J2270; J2405; J2543; J3370; J7030; J7620; 97116; 99285-25

== ENCOUNTER → 2017-05-03 | Outpatient (CLI) | payer MEDICARE, OTHER ==
[2017-04-14 19:50] VITALS: BP 165/78
== END | disposition home or self-care (01) ==
LOC: PMGWOUND 10:16
PROVIDERS: ATTEND Preventive Medicine Undersea and Hyperbaric Medicine
DX: I87.313 Chronic venous hypertension (idiopathic) with ulcer of bilateral lower extremity (principal); E11.622 Type 2 diabetes mellitus with other skin ulcer; L97.221 Non-pressure chronic ulcer of left calf limited to breakdown of skin; L97.811 Non-pressure chronic ulcer of other part of right lower leg limited to breakdown of skin; E11.621 Type 2 diabetes mellitus with foot ulcer; L97.521 Non-pressure chronic ulcer of other part of left foot limited to breakdown of skin; I25.10 Atherosclerotic heart disease of native coronary artery without angina pectoris; E11.22 Type 2 diabetes mellitus with diabetic chronic kidney disease; I13.2 Hypertensive heart and chronic kidney disease with heart failure and with stage 5 chronic kidney disease, or end stage renal disease; I50.32 Chronic diastolic (congestive) heart failure; N18.6 End stage renal disease; E78.5 Hyperlipidemia, unspecified; K21.9 Gastro-esophageal reflux disease without esophagitis; E66.01 Morbid (severe) obesity due to excess calories; I25.2 Old myocardial infarction; E11.42 Type 2 diabetes mellitus with diabetic polyneuropathy; E11.21 Type 2 diabetes mellitus with diabetic nephropathy; I48.91 Unspecified atrial fibrillation; F03.90 Unspecified dementia, unspecified severity, without behavioral disturbance, psychotic disturbance, mood disturbance, and anxiety; J44.9 Chronic obstructive pulmonary disease, unspecified; Z79.4 Long term (current) use of insulin; Z90.49 Acquired absence of other specified parts of digestive tract; Z99.2 Dependence on renal dialysis; Z86.73 Personal history of transient ischemic attack (TIA), and cerebral infarction without residual deficits; Z87.891 Personal history of nicotine dependence; Z68.41 Body mass index [BMI] 40.0-44.9, adult
CPT/HCPCS: 99215

== ENCOUNTER → 2017-05-17 | Outpatient (CLI) | payer MEDICARE, OTHER ==
[2017-05-03 14:33] VITALS: BP 162/73
[~2017-05-17] MED LIST changes: +AMOX1TAB61 PO; -METO100T2 PO; +METO100T7 PO
== END | disposition home or self-care (01) ==
LOC: PMGWOUND 10:11
PROVIDERS: ATTEND Preventive Medicine Undersea and Hyperbaric Medicine
DX: I87.313 Chronic venous hypertension (idiopathic) with ulcer of bilateral lower extremity (principal); E11.622 Type 2 diabetes mellitus with other skin ulcer; L97.221 Non-pressure chronic ulcer of left calf limited to breakdown of skin; L97.521 Non-pressure chronic ulcer of other part of left foot limited to breakdown of skin; I25.10 Atherosclerotic heart disease of native coronary artery without angina pectoris; E11.22 Type 2 diabetes mellitus with diabetic chronic kidney disease; I13.2 Hypertensive heart and chronic kidney disease with heart failure and with stage 5 chronic kidney disease, or end stage renal disease; I50.32 Chronic diastolic (congestive) heart failure; N18.6 End stage renal disease; E11.621 Type 2 diabetes mellitus with foot ulcer; L97.211 Non-pressure chronic ulcer of right calf limited to breakdown of skin; E78.5 Hyperlipidemia, unspecified; K21.9 Gastro-esophageal reflux disease without esophagitis; E66.01 Morbid (severe) obesity due to excess calories; I25.2 Old myocardial infarction; E11.42 Type 2 diabetes mellitus with diabetic polyneuropathy; E11.21 Type 2 diabetes mellitus with diabetic nephropathy; I48.91 Unspecified atrial fibrillation; F03.90 Unspecified dementia, unspecified severity, without behavioral disturbance, psychotic disturbance, mood disturbance, and anxiety; J44.9 Chronic obstructive pulmonary disease, unspecified; Z79.4 Long term (current) use of insulin; Z90.49 Acquired absence of other specified parts of digestive tract; Z99.2 Dependence on renal dialysis; Z86.73 Personal history of transient ischemic attack (TIA), and cerebral infarction without residual deficits; Z87.891 Personal history of nicotine dependence; Z68.41 Body mass index [BMI] 40.0-44.9, adult
CPT/HCPCS: 29581; 97597; 97598

== ENCOUNTER → 2017-05-24 | Outpatient (CLI) | payer MEDICARE, OTHER ==
[2017-05-03 14:33] VITALS: BP 162/73
== END | disposition home or self-care (01) ==
LOC: PMGWOUND 10:32
PROVIDERS: ATTEND Preventive Medicine Undersea and Hyperbaric Medicine
DX: I87.313 Chronic venous hypertension (idiopathic) with ulcer of bilateral lower extremity (principal); E11.622 Type 2 diabetes mellitus with other skin ulcer; L97.221 Non-pressure chronic ulcer of left calf limited to breakdown of skin; L97.811 Non-pressure chronic ulcer of other part of right lower leg limited to breakdown of skin; I25.10 Atherosclerotic heart disease of native coronary artery without angina pectoris; J44.9 Chronic obstructive pulmonary disease, unspecified; K21.9 Gastro-esophageal reflux disease without esophagitis; E11.22 Type 2 diabetes mellitus with diabetic chronic kidney disease; I13.2 Hypertensive heart and chronic kidney disease with heart failure and with stage 5 chronic kidney disease, or end stage renal disease; N18.6 End stage renal disease; I50.32 Chronic diastolic (congestive) heart failure; E66.01 Morbid (severe) obesity due to excess calories; I25.2 Old myocardial infarction; E11.42 Type 2 diabetes mellitus with diabetic polyneuropathy; E11.21 Type 2 diabetes mellitus with diabetic nephropathy; I48.91 Unspecified atrial fibrillation; F03.90 Unspecified dementia, unspecified severity, without behavioral disturbance, psychotic disturbance, mood disturbance, and anxiety; M19.90 Unspecified osteoarthritis, unspecified site; E78.00 Pure hypercholesterolemia, unspecified; Z90.49 Acquired absence of other specified parts of digestive tract; Z85.46 Personal history of malignant neoplasm of prostate; Z87.891 Personal history of nicotine dependence; Z86.73 Personal history of transient ischemic attack (TIA), and cerebral infarction without residual deficits; Z99.2 Dependence on renal dialysis; Z79.4 Long term (current) use of insulin; Z68.41 Body mass index [BMI] 40.0-44.9, adult
CPT/HCPCS: 29581; 97597; 97598

== ENCOUNTER → 2017-05-31 | Outpatient (CLI) | payer MEDICARE, OTHER ==
[2017-05-03 14:33] VITALS: BP 162/73
== END | disposition home or self-care (01) ==
LOC: PMGWOUND 10:45
PROVIDERS: ATTEND Preventive Medicine Undersea and Hyperbaric Medicine
DX: I87.313 Chronic venous hypertension (idiopathic) with ulcer of bilateral lower extremity (principal); E11.622 Type 2 diabetes mellitus with other skin ulcer; L97.221 Non-pressure chronic ulcer of left calf limited to breakdown of skin; L97.811 Non-pressure chronic ulcer of other part of right lower leg limited to breakdown of skin; E11.42 Type 2 diabetes mellitus with diabetic polyneuropathy; J44.9 Chronic obstructive pulmonary disease, unspecified; K21.9 Gastro-esophageal reflux disease without esophagitis; E11.22 Type 2 diabetes mellitus with diabetic chronic kidney disease; I13.2 Hypertensive heart and chronic kidney disease with heart failure and with stage 5 chronic kidney disease, or end stage renal disease; N18.6 End stage renal disease; I50.32 Chronic diastolic (congestive) heart failure; I25.2 Old myocardial infarction; I48.91 Unspecified atrial fibrillation; F03.90 Unspecified dementia, unspecified severity, without behavioral disturbance, psychotic disturbance, mood disturbance, and anxiety; M19.90 Unspecified osteoarthritis, unspecified site; I25.10 Atherosclerotic heart disease of native coronary artery without angina pectoris; E78.00 Pure hypercholesterolemia, unspecified; E66.01 Morbid (severe) obesity due to excess calories; Z68.41 Body mass index [BMI] 40.0-44.9, adult; Z90.49 Acquired absence of other specified parts of digestive tract; Z85.46 Personal history of malignant neoplasm of prostate; Z87.891 Personal history of nicotine dependence; Z95.810 Presence of automatic (implantable) cardiac defibrillator; Z86.73 Personal history of transient ischemic attack (TIA), and cerebral infarction without residual deficits; Z99.2 Dependence on renal dialysis; Z79.4 Long term (current) use of insulin; Z95.5 Presence of coronary angioplasty implant and graft
CPT/HCPCS: 29581; 97597

== ENCOUNTER → 2017-06-07 | Outpatient (CLI) | payer MEDICARE, OTHER ==
[2017-05-03 14:33] VITALS: BP 162/73
== END | disposition home or self-care (01) ==
LOC: PMGWOUND 10:35
PROVIDERS: ATTEND Preventive Medicine Undersea and Hyperbaric Medicine
DX: I87.313 Chronic venous hypertension (idiopathic) with ulcer of bilateral lower extremity (principal); E11.622 Type 2 diabetes mellitus with other skin ulcer; L97.221 Non-pressure chronic ulcer of left calf limited to breakdown of skin; L97.811 Non-pressure chronic ulcer of other part of right lower leg limited to breakdown of skin; E11.42 Type 2 diabetes mellitus with diabetic polyneuropathy; J44.9 Chronic obstructive pulmonary disease, unspecified; K21.9 Gastro-esophageal reflux disease without esophagitis; E11.22 Type 2 diabetes mellitus with diabetic chronic kidney disease; I13.2 Hypertensive heart and chronic kidney disease with heart failure and with stage 5 chronic kidney disease, or end stage renal disease; N18.6 End stage renal disease; I50.32 Chronic diastolic (congestive) heart failure; I25.2 Old myocardial infarction; I48.91 Unspecified atrial fibrillation; F03.90 Unspecified dementia, unspecified severity, without behavioral disturbance, psychotic disturbance, mood disturbance, and anxiety; M19.90 Unspecified osteoarthritis, unspecified site; I25.10 Atherosclerotic heart disease of native coronary artery without angina pectoris; E78.00 Pure hypercholesterolemia, unspecified; E66.01 Morbid (severe) obesity due to excess calories; Z68.41 Body mass index [BMI] 40.0-44.9, adult; Z90.49 Acquired absence of other specified parts of digestive tract; Z85.46 Personal history of malignant neoplasm of prostate; Z87.891 Personal history of nicotine dependence; Z95.810 Presence of automatic (implantable) cardiac defibrillator; Z86.73 Personal history of transient ischemic attack (TIA), and cerebral infarction without residual deficits; Z99.2 Dependence on renal dialysis; Z79.4 Long term (current) use of insulin; Z95.5 Presence of coronary angioplasty implant and graft
CPT/HCPCS: 29581; 97597; 97598

== ENCOUNTER → 2017-06-14 | Outpatient (CLI) | payer MEDICARE, OTHER | END | disposition home or self-care (01) | LOC: PMGWOUND 10:41 | DX: I87.312 Chronic venous hypertension (idiopathic) with ulcer of left lower extremity (principal); E11.622 Type 2 diabetes mellitus with other skin ulcer; L97.221 Non-pressure chronic ulcer of left calf limited to breakdown of skin; L97.811 Non-pressure chronic ulcer of other part of right lower leg limited to breakdown of skin; E11.42 Type 2 diabetes mellitus with diabetic polyneuropathy; E11.39 Type 2 diabetes mellitus with other diabetic ophthalmic complication; H40.9 Unspecified glaucoma; E11.22 Type 2 diabetes mellitus with diabetic chronic kidney disease; I13.2 Hypertensive heart and chronic kidney disease with heart failure and with stage 5 chronic kidney disease, or end stage renal disease; N18.6 End stage renal disease; I50.32 Chronic diastolic (congestive) heart failure; I25.2 Old myocardial infarction; J44.9 Chronic obstructive pulmonary disease, unspecified; K21.9 Gastro-esophageal reflux disease without esophagitis; H54.40 Blindness, one eye, unspecified eye; I48.91 Unspecified atrial fibrillation; F03.90 Unspecified dementia, unspecified severity, without behavioral disturbance, psychotic disturbance, mood disturbance, and anxiety; M19.90 Unspecified osteoarthritis, unspecified site; I25.10 Atherosclerotic heart disease of native coronary artery without angina pectoris; E78.00 Pure hypercholesterolemia, unspecified; E66.01 Morbid (severe) obesity due to excess calories; Z68.41 Body mass index [BMI] 40.0-44.9, adult; Z85.46 Personal history of malignant neoplasm of prostate; Z87.891 Personal history of nicotine dependence; Z95.810 Presence of automatic (implantable) cardiac defibrillator; Z86.73 Personal history of transient ischemic attack (TIA), and cerebral infarction without residual deficits; Z99.2 Dependence on renal dialysis; Z79.4 Long term (current) use of insulin; Z95.5 Presence of coronary angioplasty implant and graft; Z90.49 Acquired absence of other specified parts of digestive tract | CPT/HCPCS: 29581; 97597; 97598 ==

== ENCOUNTER → 2017-06-21 | Outpatient (CLI) | payer MEDICARE, OTHER | END | disposition home or self-care (01) | LOC: PMGWOUND 10:44 | DX: I87.313 Chronic venous hypertension (idiopathic) with ulcer of bilateral lower extremity (principal); E11.622 Type 2 diabetes mellitus with other skin ulcer; L97.221 Non-pressure chronic ulcer of left calf limited to breakdown of skin; L97.811 Non-pressure chronic ulcer of other part of right lower leg limited to breakdown of skin; I25.2 Old myocardial infarction; Z87.891 Personal history of nicotine dependence; E11.42 Type 2 diabetes mellitus with diabetic polyneuropathy; E11.39 Type 2 diabetes mellitus with other diabetic ophthalmic complication; H40.9 Unspecified glaucoma; E11.22 Type 2 diabetes mellitus with diabetic chronic kidney disease; I13.2 Hypertensive heart and chronic kidney disease with heart failure and with stage 5 chronic kidney disease, or end stage renal disease; N18.6 End stage renal disease; I50.32 Chronic diastolic (congestive) heart failure; J44.9 Chronic obstructive pulmonary disease, unspecified; K21.9 Gastro-esophageal reflux disease without esophagitis; H54.40 Blindness, one eye, unspecified eye; I48.91 Unspecified atrial fibrillation; F03.90 Unspecified dementia, unspecified severity, without behavioral disturbance, psychotic disturbance, mood disturbance, and anxiety; M19.90 Unspecified osteoarthritis, unspecified site; I25.10 Atherosclerotic heart disease of native coronary artery without angina pectoris; E78.00 Pure hypercholesterolemia, unspecified; E66.01 Morbid (severe) obesity due to excess calories; Z68.41 Body mass index [BMI] 40.0-44.9, adult; Z85.46 Personal history of malignant neoplasm of prostate; Z95.810 Presence of automatic (implantable) cardiac defibrillator; Z86.73 Personal history of transient ischemic attack (TIA), and cerebral infarction without residual deficits; Z99.2 Dependence on renal dialysis; Z79.4 Long term (current) use of insulin; Z90.49 Acquired absence of other specified parts of digestive tract | CPT/HCPCS: 15271; 29581; Q4131 ==

== ENCOUNTER → 2017-06-28 | Outpatient (CLI) | payer MEDICARE, OTHER | END | disposition home or self-care (01) | LOC: PMGWOUND 10:35 | DX: I87.313 Chronic venous hypertension (idiopathic) with ulcer of bilateral lower extremity (principal); E11.622 Type 2 diabetes mellitus with other skin ulcer; L97.221 Non-pressure chronic ulcer of left calf limited to breakdown of skin; L97.811 Non-pressure chronic ulcer of other part of right lower leg limited to breakdown of skin; E11.42 Type 2 diabetes mellitus with diabetic polyneuropathy; E11.39 Type 2 diabetes mellitus with other diabetic ophthalmic complication; H40.9 Unspecified glaucoma; E11.22 Type 2 diabetes mellitus with diabetic chronic kidney disease; I13.2 Hypertensive heart and chronic kidney disease with heart failure and with stage 5 chronic kidney disease, or end stage renal disease; N18.6 End stage renal disease; I50.32 Chronic diastolic (congestive) heart failure; J44.9 Chronic obstructive pulmonary disease, unspecified; K21.9 Gastro-esophageal reflux disease without esophagitis; H54.40 Blindness, one eye, unspecified eye; I25.2 Old myocardial infarction; I48.91 Unspecified atrial fibrillation; F03.90 Unspecified dementia, unspecified severity, without behavioral disturbance, psychotic disturbance, mood disturbance, and anxiety; M19.90 Unspecified osteoarthritis, unspecified site; I25.10 Atherosclerotic heart disease of native coronary artery without angina pectoris; E78.00 Pure hypercholesterolemia, unspecified; E66.01 Morbid (severe) obesity due to excess calories; Z68.41 Body mass index [BMI] 40.0-44.9, adult; Z85.46 Personal history of malignant neoplasm of prostate; Z95.810 Presence of automatic (implantable) cardiac defibrillator; Z86.73 Personal history of transient ischemic attack (TIA), and cerebral infarction without residual deficits; Z87.891 Personal history of nicotine dependence; Z99.2 Dependence on renal dialysis; Z79.4 Long term (current) use of insulin | CPT/HCPCS: 15271; 29581; Q4131 ==

== ENCOUNTER → 2017-07-05 | Outpatient (CLI) | payer MEDICARE, OTHER | END | disposition home or self-care (01) | LOC: PMGWOUND 10:19 | DX: I87.312 Chronic venous hypertension (idiopathic) with ulcer of left lower extremity (principal); E11.622 Type 2 diabetes mellitus with other skin ulcer; L97.221 Non-pressure chronic ulcer of left calf limited to breakdown of skin; L97.811 Non-pressure chronic ulcer of other part of right lower leg limited to breakdown of skin; E11.42 Type 2 diabetes mellitus with diabetic polyneuropathy; E11.39 Type 2 diabetes mellitus with other diabetic ophthalmic complication; H40.9 Unspecified glaucoma; E11.22 Type 2 diabetes mellitus with diabetic chronic kidney disease; I13.2 Hypertensive heart and chronic kidney disease with heart failure and with stage 5 chronic kidney disease, or end stage renal disease; N18.6 End stage renal disease; I50.32 Chronic diastolic (congestive) heart failure; J44.9 Chronic obstructive pulmonary disease, unspecified; K21.9 Gastro-esophageal reflux disease without esophagitis; H54.40 Blindness, one eye, unspecified eye; I25.2 Old myocardial infarction; I48.91 Unspecified atrial fibrillation; F03.90 Unspecified dementia, unspecified severity, without behavioral disturbance, psychotic disturbance, mood disturbance, and anxiety; M19.90 Unspecified osteoarthritis, unspecified site; I25.10 Atherosclerotic heart disease of native coronary artery without angina pectoris; E78.00 Pure hypercholesterolemia, unspecified; E66.01 Morbid (severe) obesity due to excess calories; Z68.41 Body mass index [BMI] 40.0-44.9, adult; Z85.46 Personal history of malignant neoplasm of prostate; Z95.810 Presence of automatic (implantable) cardiac defibrillator; Z86.73 Personal history of transient ischemic attack (TIA), and cerebral infarction without residual deficits; Z87.891 Personal history of nicotine dependence; Z99.2 Dependence on renal dialysis; Z79.4 Long term (current) use of insulin | CPT/HCPCS: 15271; 29581; 97597; Q4131 ==

== ENCOUNTER → 2017-07-19 | Outpatient (CLI) | payer MEDICARE, OTHER | END | disposition home or self-care (01) | LOC: PMGWOUND 10:46 | DX: I87.313 Chronic venous hypertension (idiopathic) with ulcer of bilateral lower extremity (principal); E11.622 Type 2 diabetes mellitus with other skin ulcer; L97.221 Non-pressure chronic ulcer of left calf limited to breakdown of skin; L97.811 Non-pressure chronic ulcer of other part of right lower leg limited to breakdown of skin; E11.42 Type 2 diabetes mellitus with diabetic polyneuropathy; E11.39 Type 2 diabetes mellitus with other diabetic ophthalmic complication; H40.9 Unspecified glaucoma; E11.22 Type 2 diabetes mellitus with diabetic chronic kidney disease; I13.2 Hypertensive heart and chronic kidney disease with heart failure and with stage 5 chronic kidney disease, or end stage renal disease; N18.6 End stage renal disease; I50.32 Chronic diastolic (congestive) heart failure; J44.9 Chronic obstructive pulmonary disease, unspecified; K21.9 Gastro-esophageal reflux disease without esophagitis; H54.40 Blindness, one eye, unspecified eye; I25.2 Old myocardial infarction; I48.91 Unspecified atrial fibrillation; F03.90 Unspecified dementia, unspecified severity, without behavioral disturbance, psychotic disturbance, mood disturbance, and anxiety; M19.90 Unspecified osteoarthritis, unspecified site; I25.10 Atherosclerotic heart disease of native coronary artery without angina pectoris; E78.00 Pure hypercholesterolemia, unspecified; E66.01 Morbid (severe) obesity due to excess calories; Z68.41 Body mass index [BMI] 40.0-44.9, adult; Z85.46 Personal history of malignant neoplasm of prostate; Z95.810 Presence of automatic (implantable) cardiac defibrillator; Z86.73 Personal history of transient ischemic attack (TIA), and cerebral infarction without residual deficits; Z87.891 Personal history of nicotine dependence; Z99.2 Dependence on renal dialysis; Z79.4 Long term (current) use of insulin | CPT/HCPCS: 29581; 97597 ==

== ENCOUNTER → 2017-07-26 | Outpatient (CLI) | payer MEDICARE, OTHER ==
[2017-07-26 14:10] LABS: POC GLUCOSE 127 mg/dL (70-99)
== END | disposition home or self-care (01) ==
LOC: PMGWOUND 10:38
DX: I87.313 Chronic venous hypertension (idiopathic) with ulcer of bilateral lower extremity (principal); E11.622 Type 2 diabetes mellitus with other skin ulcer; L97.221 Non-pressure chronic ulcer of left calf limited to breakdown of skin; L97.811 Non-pressure chronic ulcer of other part of right lower leg limited to breakdown of skin; E11.42 Type 2 diabetes mellitus with diabetic polyneuropathy; E11.39 Type 2 diabetes mellitus with other diabetic ophthalmic complication; H40.9 Unspecified glaucoma; E11.22 Type 2 diabetes mellitus with diabetic chronic kidney disease; I13.2 Hypertensive heart and chronic kidney disease with heart failure and with stage 5 chronic kidney disease, or end stage renal disease; N18.6 End stage renal disease; I50.32 Chronic diastolic (congestive) heart failure; J44.9 Chronic obstructive pulmonary disease, unspecified; K21.9 Gastro-esophageal reflux disease without esophagitis; H54.40 Blindness, one eye, unspecified eye; I25.2 Old myocardial infarction; I48.91 Unspecified atrial fibrillation; F03.90 Unspecified dementia, unspecified severity, without behavioral disturbance, psychotic disturbance, mood disturbance, and anxiety; M19.90 Unspecified osteoarthritis, unspecified site; I25.10 Atherosclerotic heart disease of native coronary artery without angina pectoris; E78.00 Pure hypercholesterolemia, unspecified; E66.01 Morbid (severe) obesity due to excess calories; Z68.41 Body mass index [BMI] 40.0-44.9, adult; Z85.46 Personal history of malignant neoplasm of prostate; Z95.810 Presence of automatic (implantable) cardiac defibrillator; Z86.73 Personal history of transient ischemic attack (TIA), and cerebral infarction without residual deficits; Z87.891 Personal history of nicotine dependence; Z99.2 Dependence on renal dialysis; Z79.4 Long term (current) use of insulin
CPT/HCPCS: 17250; 29581; 82962; 97597

== ENCOUNTER → 2017-08-02 | Outpatient (CLI) | payer MEDICARE, OTHER | END | disposition home or self-care (01) | LOC: PMGWOUND 10:35 | DX: E11.622 Type 2 diabetes mellitus with other skin ulcer (principal); L97.221 Non-pressure chronic ulcer of left calf limited to breakdown of skin; L97.811 Non-pressure chronic ulcer of other part of right lower leg limited to breakdown of skin; I87.313 Chronic venous hypertension (idiopathic) with ulcer of bilateral lower extremity; E11.42 Type 2 diabetes mellitus with diabetic polyneuropathy; E11.39 Type 2 diabetes mellitus with other diabetic ophthalmic complication; H40.9 Unspecified glaucoma; E11.22 Type 2 diabetes mellitus with diabetic chronic kidney disease; I13.2 Hypertensive heart and chronic kidney disease with heart failure and with stage 5 chronic kidney disease, or end stage renal disease; N18.6 End stage renal disease; I50.32 Chronic diastolic (congestive) heart failure; J44.9 Chronic obstructive pulmonary disease, unspecified; K21.9 Gastro-esophageal reflux disease without esophagitis; H54.40 Blindness, one eye, unspecified eye; I25.2 Old myocardial infarction; I48.91 Unspecified atrial fibrillation; F03.90 Unspecified dementia, unspecified severity, without behavioral disturbance, psychotic disturbance, mood disturbance, and anxiety; M19.90 Unspecified osteoarthritis, unspecified site; I25.10 Atherosclerotic heart disease of native coronary artery without angina pectoris; E78.00 Pure hypercholesterolemia, unspecified; E66.01 Morbid (severe) obesity due to excess calories; Z68.41 Body mass index [BMI] 40.0-44.9, adult; Z85.46 Personal history of malignant neoplasm of prostate; Z95.810 Presence of automatic (implantable) cardiac defibrillator; Z86.73 Personal history of transient ischemic attack (TIA), and cerebral infarction without residual deficits; Z87.891 Personal history of nicotine dependence; Z99.2 Dependence on renal dialysis; Z79.4 Long term (current) use of insulin | CPT/HCPCS: 15271; 97597; Q4131 ==

== ENCOUNTER → 2017-08-09 | Outpatient (CLI) | payer MEDICARE, OTHER | END | disposition home or self-care (01) | LOC: PMGWOUND 10:30 | DX: E11.622 Type 2 diabetes mellitus with other skin ulcer (principal); L97.221 Non-pressure chronic ulcer of left calf limited to breakdown of skin; L97.811 Non-pressure chronic ulcer of other part of right lower leg limited to breakdown of skin; I87.313 Chronic venous hypertension (idiopathic) with ulcer of bilateral lower extremity; E11.42 Type 2 diabetes mellitus with diabetic polyneuropathy; E11.39 Type 2 diabetes mellitus with other diabetic ophthalmic complication; H40.9 Unspecified glaucoma; E11.22 Type 2 diabetes mellitus with diabetic chronic kidney disease; I13.2 Hypertensive heart and chronic kidney disease with heart failure and with stage 5 chronic kidney disease, or end stage renal disease; N18.6 End stage renal disease; I50.33 Acute on chronic diastolic (congestive) heart failure; J44.9 Chronic obstructive pulmonary disease, unspecified; K21.9 Gastro-esophageal reflux disease without esophagitis; H54.40 Blindness, one eye, unspecified eye; I25.2 Old myocardial infarction; I48.91 Unspecified atrial fibrillation; F03.90 Unspecified dementia, unspecified severity, without behavioral disturbance, psychotic disturbance, mood disturbance, and anxiety; M19.90 Unspecified osteoarthritis, unspecified site; I25.10 Atherosclerotic heart disease of native coronary artery without angina pectoris; E78.00 Pure hypercholesterolemia, unspecified; E66.01 Morbid (severe) obesity due to excess calories; Z68.41 Body mass index [BMI] 40.0-44.9, adult; Z85.46 Personal history of malignant neoplasm of prostate; Z95.810 Presence of automatic (implantable) cardiac defibrillator; Z86.73 Personal history of transient ischemic attack (TIA), and cerebral infarction without residual deficits; Z87.891 Personal history of nicotine dependence; Z99.2 Dependence on renal dialysis; Z79.4 Long term (current) use of insulin | CPT/HCPCS: 29581; 97597 ==

== ENCOUNTER → 2017-08-16 | Outpatient (CLI) | payer MEDICARE, OTHER | END | disposition home or self-care (01) | LOC: PMGWOUND 10:37 | DX: E11.622 Type 2 diabetes mellitus with other skin ulcer (principal); L97.221 Non-pressure chronic ulcer of left calf limited to breakdown of skin; L97.811 Non-pressure chronic ulcer of other part of right lower leg limited to breakdown of skin; I87.313 Chronic venous hypertension (idiopathic) with ulcer of bilateral lower extremity; E11.42 Type 2 diabetes mellitus with diabetic polyneuropathy; E11.39 Type 2 diabetes mellitus with other diabetic ophthalmic complication; H40.9 Unspecified glaucoma; E11.22 Type 2 diabetes mellitus with diabetic chronic kidney disease; I13.2 Hypertensive heart and chronic kidney disease with heart failure and with stage 5 chronic kidney disease, or end stage renal disease; N18.6 End stage renal disease; I50.33 Acute on chronic diastolic (congestive) heart failure; J44.9 Chronic obstructive pulmonary disease, unspecified; K21.9 Gastro-esophageal reflux disease without esophagitis; G89.29 Other chronic pain; H54.40 Blindness, one eye, unspecified eye; I25.2 Old myocardial infarction; I48.91 Unspecified atrial fibrillation; F03.90 Unspecified dementia, unspecified severity, without behavioral disturbance, psychotic disturbance, mood disturbance, and anxiety; M19.90 Unspecified osteoarthritis, unspecified site; I25.10 Atherosclerotic heart disease of native coronary artery without angina pectoris; E78.00 Pure hypercholesterolemia, unspecified; E66.01 Morbid (severe) obesity due to excess calories; Z68.41 Body mass index [BMI] 40.0-44.9, adult; Z85.46 Personal history of malignant neoplasm of prostate; Z95.810 Presence of automatic (implantable) cardiac defibrillator; Z86.73 Personal history of transient ischemic attack (TIA), and cerebral infarction without residual deficits; Z87.891 Personal history of nicotine dependence; Z99.2 Dependence on renal dialysis; Z79.4 Long term (current) use of insulin; Z95.5 Presence of coronary angioplasty implant and graft | CPT/HCPCS: 29581; 97597; 97598 ==

== ENCOUNTER → 2017-08-23 | Outpatient (CLI) | payer MEDICARE, OTHER | END | disposition home or self-care (01) | LOC: PMGWOUND 10:40 | DX: I87.313 Chronic venous hypertension (idiopathic) with ulcer of bilateral lower extremity (principal); E11.622 Type 2 diabetes mellitus with other skin ulcer; L97.221 Non-pressure chronic ulcer of left calf limited to breakdown of skin; L97.811 Non-pressure chronic ulcer of other part of right lower leg limited to breakdown of skin; I25.10 Atherosclerotic heart disease of native coronary artery without angina pectoris; J44.9 Chronic obstructive pulmonary disease, unspecified; K21.9 Gastro-esophageal reflux disease without esophagitis; E11.22 Type 2 diabetes mellitus with diabetic chronic kidney disease; I13.2 Hypertensive heart and chronic kidney disease with heart failure and with stage 5 chronic kidney disease, or end stage renal disease; N18.6 End stage renal disease; I50.33 Acute on chronic diastolic (congestive) heart failure; E66.2 Morbid (severe) obesity with alveolar hypoventilation; I25.2 Old myocardial infarction; G89.29 Other chronic pain; E78.00 Pure hypercholesterolemia, unspecified; E11.42 Type 2 diabetes mellitus with diabetic polyneuropathy; E11.39 Type 2 diabetes mellitus with other diabetic ophthalmic complication; I48.91 Unspecified atrial fibrillation; F03.90 Unspecified dementia, unspecified severity, without behavioral disturbance, psychotic disturbance, mood disturbance, and anxiety; M19.90 Unspecified osteoarthritis, unspecified site; Z90.49 Acquired absence of other specified parts of digestive tract; Z86.73 Personal history of transient ischemic attack (TIA), and cerebral infarction without residual deficits; Z85.46 Personal history of malignant neoplasm of prostate; Z87.891 Personal history of nicotine dependence; Z99.2 Dependence on renal dialysis; Z79.4 Long term (current) use of insulin; Z68.41 Body mass index [BMI] 40.0-44.9, adult | CPT/HCPCS: 29581; 97597 ==

== ENCOUNTER → 2017-08-30 | Outpatient (CLI) | payer MEDICARE, OTHER | END | disposition home or self-care (01) | LOC: PMGWOUND 10:45 | DX: I87.313 Chronic venous hypertension (idiopathic) with ulcer of bilateral lower extremity (principal); E11.622 Type 2 diabetes mellitus with other skin ulcer; L97.221 Non-pressure chronic ulcer of left calf limited to breakdown of skin; L97.811 Non-pressure chronic ulcer of other part of right lower leg limited to breakdown of skin; E11.621 Type 2 diabetes mellitus with foot ulcer; L97.521 Non-pressure chronic ulcer of other part of left foot limited to breakdown of skin; I25.10 Atherosclerotic heart disease of native coronary artery without angina pectoris; J44.9 Chronic obstructive pulmonary disease, unspecified; K21.9 Gastro-esophageal reflux disease without esophagitis; E11.22 Type 2 diabetes mellitus with diabetic chronic kidney disease; I13.2 Hypertensive heart and chronic kidney disease with heart failure and with stage 5 chronic kidney disease, or end stage renal disease; N18.6 End stage renal disease; I50.33 Acute on chronic diastolic (congestive) heart failure; E66.2 Morbid (severe) obesity with alveolar hypoventilation; I25.2 Old myocardial infarction; G89.29 Other chronic pain; E78.00 Pure hypercholesterolemia, unspecified; E11.42 Type 2 diabetes mellitus with diabetic polyneuropathy; E11.39 Type 2 diabetes mellitus with other diabetic ophthalmic complication; I48.91 Unspecified atrial fibrillation; F03.90 Unspecified dementia, unspecified severity, without behavioral disturbance, psychotic disturbance, mood disturbance, and anxiety; M19.90 Unspecified osteoarthritis, unspecified site; Z90.49 Acquired absence of other specified parts of digestive tract; Z86.73 Personal history of transient ischemic attack (TIA), and cerebral infarction without residual deficits; Z85.46 Personal history of malignant neoplasm of prostate; Z87.891 Personal history of nicotine dependence; Z99.2 Dependence on renal dialysis; Z79.4 Long term (current) use of insulin; Z68.41 Body mass index [BMI] 40.0-44.9, adult | CPT/HCPCS: 93922; 93926; 97597 ==

== ENCOUNTER → 2017-09-06 | Outpatient (CLI) | payer MEDICARE, OTHER | END | disposition home or self-care (01) | LOC: PMGWOUND 10:24 | DX: I87.313 Chronic venous hypertension (idiopathic) with ulcer of bilateral lower extremity (principal); E11.622 Type 2 diabetes mellitus with other skin ulcer; L97.221 Non-pressure chronic ulcer of left calf limited to breakdown of skin; L97.811 Non-pressure chronic ulcer of other part of right lower leg limited to breakdown of skin; E11.621 Type 2 diabetes mellitus with foot ulcer; L97.521 Non-pressure chronic ulcer of other part of left foot limited to breakdown of skin; L97.511 Non-pressure chronic ulcer of other part of right foot limited to breakdown of skin; I25.10 Atherosclerotic heart disease of native coronary artery without angina pectoris; J44.9 Chronic obstructive pulmonary disease, unspecified; K21.9 Gastro-esophageal reflux disease without esophagitis; E11.22 Type 2 diabetes mellitus with diabetic chronic kidney disease; I13.2 Hypertensive heart and chronic kidney disease with heart failure and with stage 5 chronic kidney disease, or end stage renal disease; N18.6 End stage renal disease; I50.33 Acute on chronic diastolic (congestive) heart failure; E66.2 Morbid (severe) obesity with alveolar hypoventilation; I25.2 Old myocardial infarction; G89.29 Other chronic pain; E78.00 Pure hypercholesterolemia, unspecified; E11.42 Type 2 diabetes mellitus with diabetic polyneuropathy; E11.39 Type 2 diabetes mellitus with other diabetic ophthalmic complication; I48.91 Unspecified atrial fibrillation; F03.90 Unspecified dementia, unspecified severity, without behavioral disturbance, psychotic disturbance, mood disturbance, and anxiety; M19.90 Unspecified osteoarthritis, unspecified site; Z90.49 Acquired absence of other specified parts of digestive tract; Z86.73 Personal history of transient ischemic attack (TIA), and cerebral infarction without residual deficits; Z85.46 Personal history of malignant neoplasm of prostate; Z87.891 Personal history of nicotine dependence; Z99.2 Dependence on renal dialysis; Z79.4 Long term (current) use of insulin; Z68.41 Body mass index [BMI] 40.0-44.9, adult | CPT/HCPCS: 15271; 15272; 29581; 97597; Q4131 ==

== ENCOUNTER → 2017-09-13 | Outpatient (CLI) | payer MEDICARE, OTHER | END | disposition home or self-care (01) | LOC: PMGWOUND 10:41 | DX: I87.313 Chronic venous hypertension (idiopathic) with ulcer of bilateral lower extremity (principal); E11.622 Type 2 diabetes mellitus with other skin ulcer; L97.221 Non-pressure chronic ulcer of left calf limited to breakdown of skin; L97.811 Non-pressure chronic ulcer of other part of right lower leg limited to breakdown of skin; E11.621 Type 2 diabetes mellitus with foot ulcer; L97.521 Non-pressure chronic ulcer of other part of left foot limited to breakdown of skin; L97.511 Non-pressure chronic ulcer of other part of right foot limited to breakdown of skin; I25.10 Atherosclerotic heart disease of native coronary artery without angina pectoris; J44.9 Chronic obstructive pulmonary disease, unspecified; K21.9 Gastro-esophageal reflux disease without esophagitis; E11.22 Type 2 diabetes mellitus with diabetic chronic kidney disease; I13.2 Hypertensive heart and chronic kidney disease with heart failure and with stage 5 chronic kidney disease, or end stage renal disease; N18.6 End stage renal disease; I50.33 Acute on chronic diastolic (congestive) heart failure; E66.2 Morbid (severe) obesity with alveolar hypoventilation; G89.29 Other chronic pain; E78.00 Pure hypercholesterolemia, unspecified; E11.42 Type 2 diabetes mellitus with diabetic polyneuropathy; E11.39 Type 2 diabetes mellitus with other diabetic ophthalmic complication; I48.91 Unspecified atrial fibrillation; F03.90 Unspecified dementia, unspecified severity, without behavioral disturbance, psychotic disturbance, mood disturbance, and anxiety; M19.90 Unspecified osteoarthritis, unspecified site; Z90.49 Acquired absence of other specified parts of digestive tract; Z86.73 Personal history of transient ischemic attack (TIA), and cerebral infarction without residual deficits; Z85.46 Personal history of malignant neoplasm of prostate; Z87.891 Personal history of nicotine dependence; Z99.2 Dependence on renal dialysis; Z79.4 Long term (current) use of insulin; Z68.41 Body mass index [BMI] 40.0-44.9, adult | CPT/HCPCS: 15271; 29581; 97597; 97598; Q4131 ==

== ENCOUNTER → 2017-09-24 | Outpatient (CLI) | payer MEDICARE, OTHER | END | disposition home or self-care (01) | LOC: PMGWOUND 09:13 | DX: I87.313 Chronic venous hypertension (idiopathic) with ulcer of bilateral lower extremity (principal); E11.622 Type 2 diabetes mellitus with other skin ulcer; L97.221 Non-pressure chronic ulcer of left calf limited to breakdown of skin; L97.811 Non-pressure chronic ulcer of other part of right lower leg limited to breakdown of skin; E11.621 Type 2 diabetes mellitus with foot ulcer; L97.521 Non-pressure chronic ulcer of other part of left foot limited to breakdown of skin; L97.511 Non-pressure chronic ulcer of other part of right foot limited to breakdown of skin; T22.112A Burn of first degree of left forearm, initial encounter; T31.0 Burns involving less than 10% of body surface; I25.10 Atherosclerotic heart disease of native coronary artery without angina pectoris; J44.9 Chronic obstructive pulmonary disease, unspecified; K21.9 Gastro-esophageal reflux disease without esophagitis; E11.22 Type 2 diabetes mellitus with diabetic chronic kidney disease; I13.2 Hypertensive heart and chronic kidney disease with heart failure and with stage 5 chronic kidney disease, or end stage renal disease; N18.6 End stage renal disease; I50.33 Acute on chronic diastolic (congestive) heart failure; E66.2 Morbid (severe) obesity with alveolar hypoventilation; G89.29 Other chronic pain; E78.00 Pure hypercholesterolemia, unspecified; E11.42 Type 2 diabetes mellitus with diabetic polyneuropathy; E11.39 Type 2 diabetes mellitus with other diabetic ophthalmic complication; I48.91 Unspecified atrial fibrillation; F03.90 Unspecified dementia, unspecified severity, without behavioral disturbance, psychotic disturbance, mood disturbance, and anxiety; M19.90 Unspecified osteoarthritis, unspecified site; Z90.49 Acquired absence of other specified parts of digestive tract; Z86.73 Personal history of transient ischemic attack (TIA), and cerebral infarction without residual deficits; Z85.46 Personal history of malignant neoplasm of prostate; Z87.891 Personal history of nicotine dependence; Z99.2 Dependence on renal dialysis; Z79.4 Long term (current) use of insulin; Z68.41 Body mass index [BMI] 40.0-44.9, adult; X08.8XXA Exposure to other specified smoke, fire and flames, initial encounter; Y93.9 Activity, unspecified; Y99.8 Other external cause status; Y92.9 Unspecified place or not applicable | CPT/HCPCS: 94640; G0463 ==

== ENCOUNTER → 2017-11-01 | Outpatient (CLI) | payer MEDICARE, OTHER | END | disposition home or self-care (01) | LOC: PMGWOUND 11:00 | DX: I87.313 Chronic venous hypertension (idiopathic) with ulcer of bilateral lower extremity (principal); E11.622 Type 2 diabetes mellitus with other skin ulcer; L97.221 Non-pressure chronic ulcer of left calf limited to breakdown of skin; E11.621 Type 2 diabetes mellitus with foot ulcer; L97.521 Non-pressure chronic ulcer of other part of left foot limited to breakdown of skin; L97.511 Non-pressure chronic ulcer of other part of right foot limited to breakdown of skin; I25.10 Atherosclerotic heart disease of native coronary artery without angina pectoris; J44.9 Chronic obstructive pulmonary disease, unspecified; K21.9 Gastro-esophageal reflux disease without esophagitis; E11.22 Type 2 diabetes mellitus with diabetic chronic kidney disease; I13.2 Hypertensive heart and chronic kidney disease with heart failure and with stage 5 chronic kidney disease, or end stage renal disease; N18.6 End stage renal disease; I50.33 Acute on chronic diastolic (congestive) heart failure; E11.42 Type 2 diabetes mellitus with diabetic polyneuropathy; E11.39 Type 2 diabetes mellitus with other diabetic ophthalmic complication; H40.9 Unspecified glaucoma; E66.2 Morbid (severe) obesity with alveolar hypoventilation; G89.29 Other chronic pain; E78.5 Hyperlipidemia, unspecified; E78.00 Pure hypercholesterolemia, unspecified; I48.91 Unspecified atrial fibrillation; F03.90 Unspecified dementia, unspecified severity, without behavioral disturbance, psychotic disturbance, mood disturbance, and anxiety; H54.62 Unqualified visual loss, left eye, normal vision right eye; M19.90 Unspecified osteoarthritis, unspecified site; Z90.49 Acquired absence of other specified parts of digestive tract; Z86.73 Personal history of transient ischemic attack (TIA), and cerebral infarction without residual deficits; Z85.46 Personal history of malignant neoplasm of prostate; Z87.891 Personal history of nicotine dependence; Z99.2 Dependence on renal dialysis; Z79.4 Long term (current) use of insulin; Z68.41 Body mass index [BMI] 40.0-44.9, adult | CPT/HCPCS: 29581; 97597; 97598 ==

== ENCOUNTER → 2017-11-08 | Outpatient (CLI) | payer MEDICARE, OTHER | END | disposition home or self-care (01) | LOC: PMGWOUND 11:07 | DX: E11.621 Type 2 diabetes mellitus with foot ulcer (principal); L97.521 Non-pressure chronic ulcer of other part of left foot limited to breakdown of skin; L97.511 Non-pressure chronic ulcer of other part of right foot limited to breakdown of skin; I87.312 Chronic venous hypertension (idiopathic) with ulcer of left lower extremity; L97.221 Non-pressure chronic ulcer of left calf limited to breakdown of skin; I25.10 Atherosclerotic heart disease of native coronary artery without angina pectoris; J44.9 Chronic obstructive pulmonary disease, unspecified; K21.9 Gastro-esophageal reflux disease without esophagitis; E11.22 Type 2 diabetes mellitus with diabetic chronic kidney disease; I13.2 Hypertensive heart and chronic kidney disease with heart failure and with stage 5 chronic kidney disease, or end stage renal disease; N18.6 End stage renal disease; I50.33 Acute on chronic diastolic (congestive) heart failure; E78.5 Hyperlipidemia, unspecified; E66.2 Morbid (severe) obesity with alveolar hypoventilation; G89.29 Other chronic pain; E78.00 Pure hypercholesterolemia, unspecified; E11.42 Type 2 diabetes mellitus with diabetic polyneuropathy; I48.91 Unspecified atrial fibrillation; E11.39 Type 2 diabetes mellitus with other diabetic ophthalmic complication; H40.9 Unspecified glaucoma; E11.40 Type 2 diabetes mellitus with diabetic neuropathy, unspecified; F03.90 Unspecified dementia, unspecified severity, without behavioral disturbance, psychotic disturbance, mood disturbance, and anxiety; M19.90 Unspecified osteoarthritis, unspecified site; Z95.1 Presence of aortocoronary bypass graft; Z86.73 Personal history of transient ischemic attack (TIA), and cerebral infarction without residual deficits; Z87.891 Personal history of nicotine dependence; Z85.46 Personal history of malignant neoplasm of prostate; Z90.49 Acquired absence of other specified parts of digestive tract; Z79.4 Long term (current) use of insulin; Z99.2 Dependence on renal dialysis; Z68.41 Body mass index [BMI] 40.0-44.9, adult | CPT/HCPCS: 11042; 11045; 97597; 97598 ==

== ENCOUNTER → 2017-11-15 | Outpatient (CLI) | payer MEDICARE, OTHER | END | disposition home or self-care (01) | LOC: PMGWOUND 10:44 | DX: I87.313 Chronic venous hypertension (idiopathic) with ulcer of bilateral lower extremity (principal); E11.622 Type 2 diabetes mellitus with other skin ulcer; L97.221 Non-pressure chronic ulcer of left calf limited to breakdown of skin; E11.621 Type 2 diabetes mellitus with foot ulcer; L97.521 Non-pressure chronic ulcer of other part of left foot limited to breakdown of skin; L97.511 Non-pressure chronic ulcer of other part of right foot limited to breakdown of skin; I25.10 Atherosclerotic heart disease of native coronary artery without angina pectoris; J44.9 Chronic obstructive pulmonary disease, unspecified; K21.9 Gastro-esophageal reflux disease without esophagitis; E11.22 Type 2 diabetes mellitus with diabetic chronic kidney disease; I13.2 Hypertensive heart and chronic kidney disease with heart failure and with stage 5 chronic kidney disease, or end stage renal disease; N18.6 End stage renal disease; I50.33 Acute on chronic diastolic (congestive) heart failure; E11.42 Type 2 diabetes mellitus with diabetic polyneuropathy; E11.39 Type 2 diabetes mellitus with other diabetic ophthalmic complication; H40.9 Unspecified glaucoma; E66.2 Morbid (severe) obesity with alveolar hypoventilation; G89.29 Other chronic pain; E78.5 Hyperlipidemia, unspecified; E78.00 Pure hypercholesterolemia, unspecified; I48.91 Unspecified atrial fibrillation; F03.90 Unspecified dementia, unspecified severity, without behavioral disturbance, psychotic disturbance, mood disturbance, and anxiety; H54.62 Unqualified visual loss, left eye, normal vision right eye; M19.90 Unspecified osteoarthritis, unspecified site; Z90.49 Acquired absence of other specified parts of digestive tract; Z86.73 Personal history of transient ischemic attack (TIA), and cerebral infarction without residual deficits; Z85.46 Personal history of malignant neoplasm of prostate; Z87.891 Personal history of nicotine dependence; Z99.2 Dependence on renal dialysis; Z79.4 Long term (current) use of insulin; Z68.41 Body mass index [BMI] 40.0-44.9, adult | CPT/HCPCS: 29581; 97597; 97598 ==

== ENCOUNTER → 2017-11-22 | Outpatient (CLI) | payer MEDICARE, OTHER | END | disposition home or self-care (01) | LOC: PMGWOUND 10:42 | DX: E11.621 Type 2 diabetes mellitus with foot ulcer (principal); L97.521 Non-pressure chronic ulcer of other part of left foot limited to breakdown of skin; I87.312 Chronic venous hypertension (idiopathic) with ulcer of left lower extremity; E11.622 Type 2 diabetes mellitus with other skin ulcer; L97.221 Non-pressure chronic ulcer of left calf limited to breakdown of skin; I25.10 Atherosclerotic heart disease of native coronary artery without angina pectoris; J44.9 Chronic obstructive pulmonary disease, unspecified; K21.9 Gastro-esophageal reflux disease without esophagitis; E11.22 Type 2 diabetes mellitus with diabetic chronic kidney disease; I13.2 Hypertensive heart and chronic kidney disease with heart failure and with stage 5 chronic kidney disease, or end stage renal disease; N18.6 End stage renal disease; I50.33 Acute on chronic diastolic (congestive) heart failure; E78.5 Hyperlipidemia, unspecified; E66.2 Morbid (severe) obesity with alveolar hypoventilation; G89.29 Other chronic pain; E78.00 Pure hypercholesterolemia, unspecified; E11.42 Type 2 diabetes mellitus with diabetic polyneuropathy; E11.39 Type 2 diabetes mellitus with other diabetic ophthalmic complication; H40.9 Unspecified glaucoma; I48.91 Unspecified atrial fibrillation; F03.90 Unspecified dementia, unspecified severity, without behavioral disturbance, psychotic disturbance, mood disturbance, and anxiety; M19.90 Unspecified osteoarthritis, unspecified site; Z86.73 Personal history of transient ischemic attack (TIA), and cerebral infarction without residual deficits; Z95.1 Presence of aortocoronary bypass graft; Z85.46 Personal history of malignant neoplasm of prostate; Z95.5 Presence of coronary angioplasty implant and graft; Z95.810 Presence of automatic (implantable) cardiac defibrillator; Z90.49 Acquired absence of other specified parts of digestive tract; Z87.891 Personal history of nicotine dependence; Z68.41 Body mass index [BMI] 40.0-44.9, adult; Z79.4 Long term (current) use of insulin; Z99.2 Dependence on renal dialysis | CPT/HCPCS: 11042; 11045; 97597; 97598 ==

== ENCOUNTER → 2017-11-29 | Outpatient (CLI) | payer MEDICARE, OTHER | END | disposition home or self-care (01) | LOC: PMGWOUND 10:30 | DX: I87.313 Chronic venous hypertension (idiopathic) with ulcer of bilateral lower extremity (principal); E11.622 Type 2 diabetes mellitus with other skin ulcer; L97.221 Non-pressure chronic ulcer of left calf limited to breakdown of skin; E11.621 Type 2 diabetes mellitus with foot ulcer; L97.521 Non-pressure chronic ulcer of other part of left foot limited to breakdown of skin; L97.511 Non-pressure chronic ulcer of other part of right foot limited to breakdown of skin; I25.10 Atherosclerotic heart disease of native coronary artery without angina pectoris; J44.9 Chronic obstructive pulmonary disease, unspecified; K21.9 Gastro-esophageal reflux disease without esophagitis; E11.22 Type 2 diabetes mellitus with diabetic chronic kidney disease; I13.2 Hypertensive heart and chronic kidney disease with heart failure and with stage 5 chronic kidney disease, or end stage renal disease; N18.6 End stage renal disease; I50.33 Acute on chronic diastolic (congestive) heart failure; E11.42 Type 2 diabetes mellitus with diabetic polyneuropathy; E11.39 Type 2 diabetes mellitus with other diabetic ophthalmic complication; H40.9 Unspecified glaucoma; E66.2 Morbid (severe) obesity with alveolar hypoventilation; G89.29 Other chronic pain; E78.5 Hyperlipidemia, unspecified; E78.00 Pure hypercholesterolemia, unspecified; I48.91 Unspecified atrial fibrillation; F03.90 Unspecified dementia, unspecified severity, without behavioral disturbance, psychotic disturbance, mood disturbance, and anxiety; H54.62 Unqualified visual loss, left eye, normal vision right eye; M19.90 Unspecified osteoarthritis, unspecified site; Z90.49 Acquired absence of other specified parts of digestive tract; Z86.73 Personal history of transient ischemic attack (TIA), and cerebral infarction without residual deficits; Z85.46 Personal history of malignant neoplasm of prostate; Z87.891 Personal history of nicotine dependence; Z99.2 Dependence on renal dialysis; Z79.4 Long term (current) use of insulin; Z68.41 Body mass index [BMI] 40.0-44.9, adult | CPT/HCPCS: 29581; 97597; 97598 ==

== ENCOUNTER → 2017-12-06 | Outpatient (CLI) | payer MEDICARE, OTHER | END | disposition home or self-care (01) | LOC: PMGWOUND 10:31 | DX: I87.313 Chronic venous hypertension (idiopathic) with ulcer of bilateral lower extremity (principal); E11.622 Type 2 diabetes mellitus with other skin ulcer; L97.221 Non-pressure chronic ulcer of left calf limited to breakdown of skin; L97.211 Non-pressure chronic ulcer of right calf limited to breakdown of skin; E11.621 Type 2 diabetes mellitus with foot ulcer; L97.521 Non-pressure chronic ulcer of other part of left foot limited to breakdown of skin; L97.511 Non-pressure chronic ulcer of other part of right foot limited to breakdown of skin; I25.10 Atherosclerotic heart disease of native coronary artery without angina pectoris; J44.9 Chronic obstructive pulmonary disease, unspecified; K21.9 Gastro-esophageal reflux disease without esophagitis; E11.22 Type 2 diabetes mellitus with diabetic chronic kidney disease; I13.2 Hypertensive heart and chronic kidney disease with heart failure and with stage 5 chronic kidney disease, or end stage renal disease; N18.6 End stage renal disease; I50.33 Acute on chronic diastolic (congestive) heart failure; E11.42 Type 2 diabetes mellitus with diabetic polyneuropathy; E11.39 Type 2 diabetes mellitus with other diabetic ophthalmic complication; H40.9 Unspecified glaucoma; E66.2 Morbid (severe) obesity with alveolar hypoventilation; G89.29 Other chronic pain; E78.5 Hyperlipidemia, unspecified; E78.00 Pure hypercholesterolemia, unspecified; I48.91 Unspecified atrial fibrillation; F03.90 Unspecified dementia, unspecified severity, without behavioral disturbance, psychotic disturbance, mood disturbance, and anxiety; H54.62 Unqualified visual loss, left eye, normal vision right eye; M19.90 Unspecified osteoarthritis, unspecified site; Z90.49 Acquired absence of other specified parts of digestive tract; Z86.73 Personal history of transient ischemic attack (TIA), and cerebral infarction without residual deficits; Z85.46 Personal history of malignant neoplasm of prostate; Z87.891 Personal history of nicotine dependence; Z99.2 Dependence on renal dialysis; Z79.4 Long term (current) use of insulin; Z68.41 Body mass index [BMI] 40.0-44.9, adult | CPT/HCPCS: 97597 ==

== ENCOUNTER → 2017-12-13 | Outpatient (CLI) | payer MEDICARE, OTHER | END | disposition home or self-care (01) | LOC: PMGWOUND 11:02 | DX: E11.621 Type 2 diabetes mellitus with foot ulcer (principal); L97.511 Non-pressure chronic ulcer of other part of right foot limited to breakdown of skin; L97.521 Non-pressure chronic ulcer of other part of left foot limited to breakdown of skin; I87.313 Chronic venous hypertension (idiopathic) with ulcer of bilateral lower extremity; L97.221 Non-pressure chronic ulcer of left calf limited to breakdown of skin; L97.211 Non-pressure chronic ulcer of right calf limited to breakdown of skin; I25.10 Atherosclerotic heart disease of native coronary artery without angina pectoris; J44.9 Chronic obstructive pulmonary disease, unspecified; E11.22 Type 2 diabetes mellitus with diabetic chronic kidney disease; I13.2 Hypertensive heart and chronic kidney disease with heart failure and with stage 5 chronic kidney disease, or end stage renal disease; N18.6 End stage renal disease; I50.9 Heart failure, unspecified; E78.5 Hyperlipidemia, unspecified; E66.2 Morbid (severe) obesity with alveolar hypoventilation; G89.29 Other chronic pain; E78.00 Pure hypercholesterolemia, unspecified; E11.42 Type 2 diabetes mellitus with diabetic polyneuropathy; I48.91 Unspecified atrial fibrillation; E11.39 Type 2 diabetes mellitus with other diabetic ophthalmic complication; H40.9 Unspecified glaucoma; F03.90 Unspecified dementia, unspecified severity, without behavioral disturbance, psychotic disturbance, mood disturbance, and anxiety; M19.90 Unspecified osteoarthritis, unspecified site; E11.40 Type 2 diabetes mellitus with diabetic neuropathy, unspecified; Z87.891 Personal history of nicotine dependence; Z85.46 Personal history of malignant neoplasm of prostate; Z86.73 Personal history of transient ischemic attack (TIA), and cerebral infarction without residual deficits; Z90.49 Acquired absence of other specified parts of digestive tract; Z95.1 Presence of aortocoronary bypass graft; Z68.41 Body mass index [BMI] 40.0-44.9, adult; Z99.2 Dependence on renal dialysis; Z79.4 Long term (current) use of insulin | CPT/HCPCS: 29581 ==

== ENCOUNTER → 2017-12-20 | Outpatient (CLI) | payer MEDICARE, OTHER | END | disposition home or self-care (01) | LOC: PMGWOUND 10:11 | DX: E11.621 Type 2 diabetes mellitus with foot ulcer (principal); L97.511 Non-pressure chronic ulcer of other part of right foot limited to breakdown of skin; L97.521 Non-pressure chronic ulcer of other part of left foot limited to breakdown of skin; I87.313 Chronic venous hypertension (idiopathic) with ulcer of bilateral lower extremity; L97.221 Non-pressure chronic ulcer of left calf limited to breakdown of skin; L97.211 Non-pressure chronic ulcer of right calf limited to breakdown of skin; I25.10 Atherosclerotic heart disease of native coronary artery without angina pectoris; J44.9 Chronic obstructive pulmonary disease, unspecified; E11.22 Type 2 diabetes mellitus with diabetic chronic kidney disease; I13.2 Hypertensive heart and chronic kidney disease with heart failure and with stage 5 chronic kidney disease, or end stage renal disease; N18.6 End stage renal disease; I50.9 Heart failure, unspecified; E78.5 Hyperlipidemia, unspecified; E66.2 Morbid (severe) obesity with alveolar hypoventilation; G89.29 Other chronic pain; E78.00 Pure hypercholesterolemia, unspecified; E11.42 Type 2 diabetes mellitus with diabetic polyneuropathy; I48.91 Unspecified atrial fibrillation; E11.39 Type 2 diabetes mellitus with other diabetic ophthalmic complication; H40.9 Unspecified glaucoma; F03.90 Unspecified dementia, unspecified severity, without behavioral disturbance, psychotic disturbance, mood disturbance, and anxiety; M19.90 Unspecified osteoarthritis, unspecified site; E11.40 Type 2 diabetes mellitus with diabetic neuropathy, unspecified; Z87.891 Personal history of nicotine dependence; Z85.46 Personal history of malignant neoplasm of prostate; Z86.73 Personal history of transient ischemic attack (TIA), and cerebral infarction without residual deficits; Z90.49 Acquired absence of other specified parts of digestive tract; Z95.1 Presence of aortocoronary bypass graft; Z68.41 Body mass index [BMI] 40.0-44.9, adult; Z99.2 Dependence on renal dialysis; Z79.4 Long term (current) use of insulin | CPT/HCPCS: 29581 ==

== ENCOUNTER → 2017-12-27 | Outpatient (CLI) | payer MEDICARE, OTHER ==
[2017-12-27 13:39] LABS: BILIRUBIN,URINE NEGATIVE (NEG); CLARITY,URINE CLEAR; COLOR,URINE YELLOW; GLUCOSE,URINE NEGATIVE (NEG); NITRITE,URINE NEGATIVE (NEG); PH,URINE 5.5; PROTEIN,URINE 30 mg/dL (NEG-TRACE)
[2017-12-27 14:10] LABS: BACTERIA,URINE MANY /HPF (0-FEW); HYALINE CASTS, URINE MANY /HPF; RBC,URINE 0 /HPF (0-2); SQUAMOUS EPITHELIAL CELL,UR OCC /LPF
== END | disposition home or self-care (01) ==
LOC: PMGWOUND 10:55
DX: I87.313 Chronic venous hypertension (idiopathic) with ulcer of bilateral lower extremity (principal); E11.622 Type 2 diabetes mellitus with other skin ulcer; L97.221 Non-pressure chronic ulcer of left calf limited to breakdown of skin; L97.211 Non-pressure chronic ulcer of right calf limited to breakdown of skin; E11.621 Type 2 diabetes mellitus with foot ulcer; L97.511 Non-pressure chronic ulcer of other part of right foot limited to breakdown of skin; L97.521 Non-pressure chronic ulcer of other part of left foot limited to breakdown of skin; I25.10 Atherosclerotic heart disease of native coronary artery without angina pectoris; J44.9 Chronic obstructive pulmonary disease, unspecified; E11.22 Type 2 diabetes mellitus with diabetic chronic kidney disease; I13.2 Hypertensive heart and chronic kidney disease with heart failure and with stage 5 chronic kidney disease, or end stage renal disease; N18.6 End stage renal disease; I50.33 Acute on chronic diastolic (congestive) heart failure; E66.2 Morbid (severe) obesity with alveolar hypoventilation; G89.29 Other chronic pain; E78.5 Hyperlipidemia, unspecified; E11.42 Type 2 diabetes mellitus with diabetic polyneuropathy; E11.39 Type 2 diabetes mellitus with other diabetic ophthalmic complication; H40.9 Unspecified glaucoma; I48.2 Chronic atrial fibrillation; M19.90 Unspecified osteoarthritis, unspecified site; K21.9 Gastro-esophageal reflux disease without esophagitis; E78.00 Pure hypercholesterolemia, unspecified; F03.90 Unspecified dementia, unspecified severity, without behavioral disturbance, psychotic disturbance, mood disturbance, and anxiety; H54.62 Unqualified visual loss, left eye, normal vision right eye; Z85.46 Personal history of malignant neoplasm of prostate; Z95.5 Presence of coronary angioplasty implant and graft; Z95.810 Presence of automatic (implantable) cardiac defibrillator; Z95.1 Presence of aortocoronary bypass graft; Z86.73 Personal history of transient ischemic attack (TIA), and cerebral infarction without residual deficits; Z90.49 Acquired absence of other specified parts of digestive tract; Z87.891 Personal history of nicotine dependence; Z68.41 Body mass index [BMI] 40.0-44.9, adult; Z99.2 Dependence on renal dialysis; Z79.4 Long term (current) use of insulin
CPT/HCPCS: 11042; 11045; 29581; 81001; 87086

== ENCOUNTER 2018-01-03 12:45 | Inpatient (IN) | payer MEDICARE, OTHER ==
[2018-01-03] MEDS: IPRATRPIUM/ALBUTEROL 0.5/2.5MG 3 ML NEBU. NEB ×2 (15:03→19:17)
[2018-01-03] MEDS: INSULIN LISPRO 300 UNITS/3 ML INSULN.PEN. SQ ×2 (16:30→17:14)
[2018-01-03] MEDS ORDERED: NON FORMULARY ITEM (Ipratropium/Albuterol Sulfate (Combivent Respimat Inhal) 2 INH) IH (17:00)
[2018-01-03] MEDS: FUROSEMIDE 40 MG TABLET. PO (17:03)
[2018-01-03] MEDS: ASPIRIN ENTERIC COATED 81 MG TABLET.DR. PO (17:03)
[2018-01-03] MEDS: PANTOPRAZOLE 40 MG TABLET.DR. PO (17:03)
[2018-01-03] MEDS: GABAPENTIN 100 MG CAPSULE. PO ×2 (17:03→21:00)
[2018-01-03] MEDS: METOPROLOL TART IMMED RELEASE 50 MG TABLET. PO ×2 (17:04→21:00)
[2018-01-03 17:05] LABS: POC GLUCOSE 207 mg/dL (70-99)
[2018-01-03] MEDS ORDERED: NON FORMULARY ITEM (Gabapentin 300 MG) PO (21:00)
[2018-01-03 21:18] LABS: POC GLUCOSE 150 mg/dL (70-99)
[2018-01-03] MEDS: LATANOPROST 0.005% OPHTH SOLUTION 2.5ML BOTTLE. OU (21:39)
[2018-01-03] MEDS: PRIMIDONE 50 MG TABLET PO (21:40)
[2018-01-03] MEDS: NIACIN ER 500 MG TABLET.ER PO (21:40)
[2018-01-03] MEDS: ATORVASTATIN CALCIUM 20 MG TABLET PO (21:40)
[2018-01-03] MEDS: DORZOLAMIDE 2% OPHTH SOLUTION 10ML BOTTLE. OU (21:41)
[2018-01-03] MEDS: INSULIN GLARGINE 300 UNITS/3 ML INSULN.PEN. SQ (21:52)
[2018-01-04] MEDS: IPRATRPIUM/ALBUTEROL 0.5/2.5MG 3 ML NEBU. NEB ×4 (07:01→19:37)
[2018-01-04] MEDS: PANTOPRAZOLE 40 MG TABLET.DR. PO (08:08)
[2018-01-04] MEDS: ASPIRIN ENTERIC COATED 81 MG TABLET.DR. PO (08:09)
[2018-01-04] MEDS: FUROSEMIDE 40 MG TABLET. PO (08:09)
[2018-01-04] MEDS: METOPROLOL TART IMMED RELEASE 50 MG TABLET. PO ×2 (08:09→20:49)
[2018-01-04] MEDS: GABAPENTIN 100 MG CAPSULE. PO ×2 (08:09→20:49)
[2018-01-04] MEDS: LINAGLIPTIN 5 MG TABLET PO (08:10)
[2018-01-04] MEDS: DORZOLAMIDE 2% OPHTH SOLUTION 10ML BOTTLE. OU ×2 (08:11→20:50)
[2018-01-04] MEDS: INSULIN LISPRO 300 UNITS/3 ML INSULN.PEN. SQ ×4 (08:16→16:50)
[2018-01-04 08:45] LABS: POC GLUCOSE 133 mg/dL (70-99)
[2018-01-04] MEDS ORDERED: NIACIN 1000 MG PO (09:00)
[2018-01-04] MEDS ORDERED: SITAGLIPTIN PHOSPHATE 25 MG PO (09:00)
[2018-01-04 11:23] LABS: POC GLUCOSE 231 mg/dL (70-99)
[2018-01-04] MEDS ORDERED: DEXTROSE 50% 25 GM / 50ML DISP.SYRIN. IV (15:00)
[2018-01-04] MEDS: VANCOMYCIN PER PHARMACY MC (15:17)
[2018-01-04] MEDS: VANCOMYCIN 2 GM in IV NORMAL SALINE 500ML BAG 500 ML IV ×2 (15:30→15:37)
[2018-01-04] MEDS: PIPERACILLIN/TAZOBACTAM 3.375 GM in IV NORMAL SALINE 50ML 50 ML IV (16:35)
[2018-01-04 17:10] LABS: ANION GAP 8 (6-14); BLOOD UREA NITROGEN 32 mg/dL (8-26); CALCIUM 8.2 mg/dL (8.5-10.1); CARBON DIOXIDE 27 mmol/L (21-32); CHLORIDE 103 mmol/L (98-107); CREATININE 2.4 mg/dL (0.7-1.3); GFR 31.2; GLUCOSE 186 mg/dL (70-99); POTASSIUM 4.1 mmol/L (3.5-5.1); SODIUM 138 mmol/L (136-145)
[2018-01-04 20:18] LABS: POC GLUCOSE 189 mg/dL (70-99)
[2018-01-04 20:25] LABS: POC GLUCOSE 126 mg/dL (70-99)
[2018-01-04] MEDS: NIACIN ER 500 MG TABLET.ER PO (20:48)
[2018-01-04] MEDS: LATANOPROST 0.005% OPHTH SOLUTION 2.5ML BOTTLE. OU (20:48)
[2018-01-04] MEDS: PRIMIDONE 50 MG TABLET PO (20:49)
[2018-01-04] MEDS: ATORVASTATIN CALCIUM 20 MG TABLET PO (20:49)
[2018-01-04] MEDS: LACTOBACILLUS RHAMNOSUS GG 1 CAPSULE. PO (20:52)
[2018-01-04] MEDS: INSULIN GLARGINE 300 UNITS/3 ML INSULN.PEN. SQ (21:03)
[2018-01-05] MEDS: PIPERACILLIN/TAZOBACTAM 3.375 GM in IV NORMAL SALINE 50ML 50 ML IV ×5 (00:20→23:40)
[2018-01-05 06:06] LABS: ADD MAN DIFF? NO
[2018-01-05 06:11] LABS: BASO % 0 % (0-3); EOS # 0.3 x10^3/uL (0.0-0.7); EOS % 3 % (0-3); HEMATOCRIT 34.5 % (39.0-53.0); HEMOGLOBIN 11.4 g/dL (13.0-17.5); LYMPH # 1.2 x10^3/uL (1.0-4.8); LYMPH % 11 % (24-48); MEAN CORPUSCULAR HEMOGLOBIN 32 pg (25-35); MEAN CORPUSCULAR HGB CONC 33 g/dL (31-37); MEAN CORPUSCULAR VOLUME 98 fL (79-100); MONO # 1.3 x10^3/uL (0.0-1.1); MONO % 12 % (0-9); NEUT % 74 % (31-73); PLATELET COUNT 200 x10^3/uL (140-400); RED BLOOD COUNT 3.51 x10^6/uL (4.30-5.70); RED CELL DISTRIBUTION WIDTH 15.8 % (11.5-14.5); WHITE BLOOD COUNT 10.9 x10^3/uL (4.0-11.0)
[2018-01-05 06:35] LABS: ALBUMIN 2.2 g/dL (3.4-5.0); ALBUMIN/GLOBULIN RATIO 0.4 (1.0-1.7); ALK PHOS 49 U/L (46-116); ALT (SGPT) 12 U/L (16-63); ANION GAP 6 (6-14); AST (SGOT) 13 U/L (15-37); BLOOD UREA NITROGEN 29 mg/dL (8-26); BUN/CREATININE RATIO 13 (6-20); CALCIUM 8.6 mg/dL (8.5-10.1); CARBON DIOXIDE 29 mmol/L (21-32); CHLORIDE 103 mmol/L (98-107); CREATININE 2.3 mg/dL (0.7-1.3); GFR 32.8; GLUCOSE 112 mg/dL (70-99); POTASSIUM 4.2 mmol/L (3.5-5.1); SODIUM 138 mmol/L (136-145); TOTAL BILIRUBIN 0.3 mg/dL (0.2-1.0); TOTAL PROTEIN 7.2 g/dL (6.4-8.2)
[2018-01-05] MEDS: IPRATRPIUM/ALBUTEROL 0.5/2.5MG 3 ML NEBU. NEB ×4 (06:54→19:53)
[2018-01-05 07:15] LABS: POC GLUCOSE 174 mg/dL (70-99)
[2018-01-05] MEDS: FUROSEMIDE 40 MG TABLET. PO (07:59)
[2018-01-05] MEDS: LACTOBACILLUS RHAMNOSUS GG 1 CAPSULE. PO ×2 (07:59→21:15)
[2018-01-05] MEDS: ASPIRIN ENTERIC COATED 81 MG TABLET.DR. PO (07:59)
[2018-01-05] MEDS: PANTOPRAZOLE 40 MG TABLET.DR. PO (07:59)
[2018-01-05] MEDS: GABAPENTIN 100 MG CAPSULE. PO ×2 (07:59→21:16)
[2018-01-05] MEDS: LINAGLIPTIN 5 MG TABLET PO (07:59)
[2018-01-05] MEDS: METOPROLOL TART IMMED RELEASE 50 MG TABLET. PO ×2 (08:00→21:16)
[2018-01-05] MEDS: DORZOLAMIDE 2% OPHTH SOLUTION 10ML BOTTLE. OU ×2 (08:00→21:14)
[2018-01-05] MEDS: INSULIN LISPRO 300 UNITS/3 ML INSULN.PEN. SQ ×6 (08:08→16:57)
[2018-01-05 08:53] LABS: SEDIMENTATION RATE 70 (0-15)
[2018-01-05 11:26] LABS: POC GLUCOSE 270 mg/dL (70-99)
[2018-01-05] MEDS: HEPARIN PF for SUB-Q USE 5,000 UNIT/0.5 ML VIAL. SQ ×2 (14:33→21:29)
[2018-01-05 16:46] LABS: POC GLUCOSE 148 mg/dL (70-99)
[2018-01-05 20:21] LABS: POC GLUCOSE 153 mg/dL (70-99)
[2018-01-05] MEDS: LATANOPROST 0.005% OPHTH SOLUTION 2.5ML BOTTLE. OU (21:14)
[2018-01-05] MEDS: NIACIN ER 500 MG TABLET.ER PO (21:15)
[2018-01-05] MEDS: ATORVASTATIN CALCIUM 20 MG TABLET PO (21:15)
[2018-01-05] MEDS: PRIMIDONE 50 MG TABLET PO (21:16)
[2018-01-05] MEDS: INSULIN GLARGINE 300 UNITS/3 ML INSULN.PEN. SQ (21:29)
[2018-01-06] MEDS: PIPERACILLIN/TAZOBACTAM 3.375 GM in IV NORMAL SALINE 50ML 50 ML IV ×3 (06:06→17:45)
[2018-01-06] MEDS: HEPARIN PF for SUB-Q USE 5,000 UNIT/0.5 ML VIAL. SQ ×3 (06:12→21:40)
[2018-01-06] MEDS ORDERED: LIDOCAINE 1% PF 30 ML VIAL. (06:43)
[2018-01-06] MEDS ORDERED: silver sulfADIAZINE 1% CREAM 25GM TUBE. TP (06:43)
[2018-01-06] MEDS: INSULIN LISPRO 300 UNITS/3 ML INSULN.PEN. SQ ×6 (08:00→17:00)
[2018-01-06] MEDS: HYDROcodone/APAP 5/325MG 1 TAB TABLET PO (08:01)
[2018-01-06] MEDS: DORZOLAMIDE 2% OPHTH SOLUTION 10ML BOTTLE. OU ×2 (08:01→21:25)
[2018-01-06] MEDS: GABAPENTIN 100 MG CAPSULE. PO ×2 (08:02→21:24)
[2018-01-06] MEDS: FUROSEMIDE 40 MG TABLET. PO (08:02)
[2018-01-06] MEDS: LINAGLIPTIN 5 MG TABLET PO (08:02)
[2018-01-06] MEDS: LACTOBACILLUS RHAMNOSUS GG 1 CAPSULE. PO ×2 (08:02→21:43)
[2018-01-06] MEDS: PANTOPRAZOLE 40 MG TABLET.DR. PO (08:03)
[2018-01-06] MEDS: ASPIRIN ENTERIC COATED 81 MG TABLET.DR. PO (08:03)
[2018-01-06] MEDS: METOPROLOL TART IMMED RELEASE 50 MG TABLET. PO ×2 (08:08→21:24)
[2018-01-06] MEDS: IPRATRPIUM/ALBUTEROL 0.5/2.5MG 3 ML NEBU. NEB ×4 (08:10→19:19)
[2018-01-06 08:17] LABS: POC GLUCOSE 196 mg/dL (70-99)
[2018-01-06] MEDS ORDERED: MORPHINE SULFATE 2 MG/ML DISP.SYRIN. IV (09:00)
[2018-01-06] MEDS ORDERED: fentaNYL PF VIAL 100 MCG/2 ML VIAL IV (09:00)
[2018-01-06] MEDS ORDERED: ONDANSETRON PF 4 MG/2 ML VIAL. IV (09:00)
[2018-01-06] MEDS ORDERED: LIDOCAINE 1% PF 2 ML VIAL. ID (09:00)
[2018-01-06] MEDS ORDERED: PROCHLORPERAZINE 10 MG/2 ML VIAL. IV (09:00)
[2018-01-06 11:13] LABS: ADD MAN DIFF? NO
[2018-01-06 11:17] LABS: BASO # 0.1 x10^3/uL (0.0-0.2); BASO % 1 % (0-3); EOS # 0.3 x10^3/uL (0.0-0.7); EOS % 3 % (0-3); HEMATOCRIT 34.1 % (39.0-53.0); HEMOGLOBIN 11.3 g/dL (13.0-17.5); LYMPH # 1.2 x10^3/uL (1.0-4.8); LYMPH % 15 % (24-48); MEAN CORPUSCULAR HEMOGLOBIN 32 pg (25-35); MEAN CORPUSCULAR HGB CONC 33 g/dL (31-37); MEAN CORPUSCULAR VOLUME 98 fL (79-100); MONO # 0.9 x10^3/uL (0.0-1.1); MONO % 10 % (0-9); NEUT # 6.1 x10^3uL (1.8-7.7); NEUT % 72 % (31-73); PLATELET COUNT 219 x10^3/uL (140-400); RED BLOOD COUNT 3.49 x10^6/uL (4.30-5.70); RED CELL DISTRIBUTION WIDTH 15.7 % (11.5-14.5); WHITE BLOOD COUNT 8.5 x10^3/uL (4.0-11.0)
[2018-01-06] MEDS: IV RINGERS,LACTATED 1000ML 1,000 ML IV (11:32)
[2018-01-06 11:40] LABS: POC GLUCOSE 148 mg/dL (70-99)
[2018-01-06 11:45] LABS: ANION GAP 7 (6-14); BLOOD UREA NITROGEN 21 mg/dL (8-26); CALCIUM 8.4 mg/dL (8.5-10.1); CARBON DIOXIDE 27 mmol/L (21-32); CHLORIDE 101 mmol/L (98-107); GFR 38.5; GLUCOSE 208 mg/dL (70-99); POTASSIUM 3.8 mmol/L (3.5-5.1); SODIUM 135 mmol/L (136-145)
[2018-01-06] MEDS ORDERED: PROPOFOL 20 ML IV (12:06)
[2018-01-06] MEDS ORDERED: LIDOCAINE 2% PF Vial for OR 5 ML VIAL. (12:06)
[2018-01-06] MEDS ORDERED: DEXAMETHASONE SOD PHOS 20 MG/5 ML VIAL. (12:23)
[2018-01-06] MEDS ORDERED: PHENYLEPHRINE in 0.9% NACL PF 1 MG/10 ML SYRINGE. IV (12:23)
[2018-01-06] MEDS ORDERED: ONDANSETRON PF 4 MG/2 ML VIAL. ×2 (12:23→12:48)
[2018-01-06] MEDS ORDERED: ePHEDrine PF IN SALINE 50 MG/5 ML DISP.SYRIN IV (12:25)
[2018-01-06] MEDS: LIDOCAINE 2%/EPI 1:100,000 20 ML VIAL. (12:40)
[2018-01-06] MEDS ORDERED: SEVOFLURANE 61 TO 120 MINUTES. IH (13:25)
[2018-01-06 13:51] LABS: POC GLUCOSE 136 mg/dL (70-99)
[2018-01-06] MEDS ORDERED: fentaNYL PF VIAL 100 MCG/2 ML VIAL (14:05)
[2018-01-06] MEDS: fentaNYL PF VIAL 100 MCG/2 ML VIAL IV ×2 (14:12→14:20)
[2018-01-06 21:21] LABS: POC GLUCOSE 235 mg/dL (70-99)
[2018-01-06] MEDS: NIACIN ER 500 MG TABLET.ER PO (21:23)
[2018-01-06] MEDS: PRIMIDONE 50 MG TABLET PO (21:24)
[2018-01-06] MEDS: LATANOPROST 0.005% OPHTH SOLUTION 2.5ML BOTTLE. OU (21:25)
[2018-01-06] MEDS: ATORVASTATIN CALCIUM 20 MG TABLET PO (21:25)
[2018-01-06] MEDS: INSULIN GLARGINE 300 UNITS/3 ML INSULN.PEN. SQ (21:39)
[2018-01-07] MEDS: PIPERACILLIN/TAZOBACTAM 3.375 GM in IV NORMAL SALINE 50ML 50 ML IV ×4 (00:33→16:53)
[2018-01-07] MEDS: HEPARIN PF for SUB-Q USE 5,000 UNIT/0.5 ML VIAL. SQ ×3 (06:16→22:51)
[2018-01-07 07:40] LABS: POC GLUCOSE 247 mg/dL (70-99)
[2018-01-07] MEDS: IPRATRPIUM/ALBUTEROL 0.5/2.5MG 3 ML NEBU. NEB ×4 (07:43→19:13)
[2018-01-07] MEDS: LINAGLIPTIN 5 MG TABLET PO (08:23)
[2018-01-07] MEDS: GABAPENTIN 100 MG CAPSULE. PO ×2 (08:23→20:50)
[2018-01-07] MEDS: FUROSEMIDE 40 MG TABLET. PO (08:23)
[2018-01-07] MEDS: ASPIRIN ENTERIC COATED 81 MG TABLET.DR. PO (08:23)
[2018-01-07] MEDS: LACTOBACILLUS RHAMNOSUS GG 1 CAPSULE. PO ×2 (08:23→20:50)
[2018-01-07] MEDS: PANTOPRAZOLE 40 MG TABLET.DR. PO (08:24)
[2018-01-07] MEDS: METOPROLOL TART IMMED RELEASE 50 MG TABLET. PO ×2 (08:24→20:49)
[2018-01-07] MEDS: DORZOLAMIDE 2% OPHTH SOLUTION 10ML BOTTLE. OU ×2 (08:25→20:51)
[2018-01-07] MEDS: INSULIN LISPRO 300 UNITS/3 ML INSULN.PEN. SQ ×6 (08:32→16:59)
[2018-01-07] MEDS: HYDROcodone/APAP 5/325MG 1 TAB TABLET PO (08:35)
[2018-01-07] MEDS: INSULIN GLARGINE 300 UNITS/3 ML INSULN.PEN. SQ ×2 (10:00→22:51)
[2018-01-07 11:16] LABS: POC GLUCOSE 207 mg/dL (70-99)
[2018-01-07 12:00] LABS: ANION GAP 5 (6-14); BLOOD UREA NITROGEN 23 mg/dL (8-26); CALCIUM 8.1 mg/dL (8.5-10.1); CARBON DIOXIDE 30 mmol/L (21-32); CHLORIDE 100 mmol/L (98-107); CREATININE 2.1 mg/dL (0.7-1.3); GFR 36.4; GLUCOSE 179 mg/dL (70-99); POTASSIUM 3.9 mmol/L (3.5-5.1); SODIUM 135 mmol/L (136-145)
[2018-01-07 16:07] LABS: POC GLUCOSE 127 mg/dL (70-99)
[2018-01-07 20:21] LABS: POC GLUCOSE 123 mg/dL (70-99)
[2018-01-07 20:39] LABS: POC GLUCOSE 127 mg/dL (70-99)
[2018-01-07] MEDS: NIACIN ER 500 MG TABLET.ER PO (20:50)
[2018-01-07] MEDS: PRIMIDONE 50 MG TABLET PO (20:50)
[2018-01-07] MEDS: ATORVASTATIN CALCIUM 20 MG TABLET PO (20:50)
[2018-01-07] MEDS: LATANOPROST 0.005% OPHTH SOLUTION 2.5ML BOTTLE. OU (20:51)
[2018-01-08] MEDS: PIPERACILLIN/TAZOBACTAM 3.375 GM in IV NORMAL SALINE 50ML 50 ML IV ×5 (00:18→23:37)
[2018-01-08] MEDS: HEPARIN PF for SUB-Q USE 5,000 UNIT/0.5 ML VIAL. SQ ×3 (05:30→21:57)
[2018-01-08] MEDS: INSULIN LISPRO 300 UNITS/3 ML INSULN.PEN. SQ ×6 (08:00→17:00)
[2018-01-08] MEDS: IPRATRPIUM/ALBUTEROL 0.5/2.5MG 3 ML NEBU. NEB ×4 (08:09→20:00)
[2018-01-08 08:16] LABS: POC GLUCOSE 112 mg/dL (70-99)
[2018-01-08] MEDS: PANTOPRAZOLE 40 MG TABLET.DR. PO (10:05)
[2018-01-08] MEDS: LACTOBACILLUS RHAMNOSUS GG 1 CAPSULE. PO ×2 (10:07→21:44)
[2018-01-08] MEDS: ASPIRIN ENTERIC COATED 81 MG TABLET.DR. PO (10:07)
[2018-01-08] MEDS: FUROSEMIDE 40 MG TABLET. PO (10:07)
[2018-01-08] MEDS: METOPROLOL TART IMMED RELEASE 50 MG TABLET. PO ×2 (10:08→23:44)
[2018-01-08] MEDS: GABAPENTIN 100 MG CAPSULE. PO ×2 (10:08→21:44)
[2018-01-08] MEDS: LINAGLIPTIN 5 MG TABLET PO (10:08)
[2018-01-08] MEDS: DORZOLAMIDE 2% OPHTH SOLUTION 10ML BOTTLE. OU ×2 (10:09→21:48)
[2018-01-08] MEDS: INSULIN GLARGINE 300 UNITS/3 ML INSULN.PEN. SQ ×2 (10:16→21:56)
[2018-01-08 11:53] LABS: POC GLUCOSE 206 mg/dL (70-99)
[2018-01-08] MEDS: traMADol 50 MG TABLET PO (13:20)
[2018-01-08 16:22] LABS: POC GLUCOSE 142 mg/dL (70-99)
[2018-01-08 20:32] LABS: POC GLUCOSE 103 mg/dL (70-99)
[2018-01-08] MEDS: LATANOPROST 0.005% OPHTH SOLUTION 2.5ML BOTTLE. OU (21:43)
[2018-01-08] MEDS: NIACIN ER 500 MG TABLET.ER PO (21:44)
[2018-01-08] MEDS: PRIMIDONE 50 MG TABLET PO (21:45)
[2018-01-08] MEDS: ATORVASTATIN CALCIUM 20 MG TABLET PO (21:45)
[2018-01-09 06:01] LABS: ANION GAP 7 (6-14); BLOOD UREA NITROGEN 30 mg/dL (8-26); CALCIUM 8.6 mg/dL (8.5-10.1); CARBON DIOXIDE 27 mmol/L (21-32); CHLORIDE 103 mmol/L (98-107); CREATININE 2.5 mg/dL (0.7-1.3); GFR 29.8; GLUCOSE 154 mg/dL (70-99); POTASSIUM 4.5 mmol/L (3.5-5.1); SODIUM 137 mmol/L (136-145)
[2018-01-09] MEDS: PIPERACILLIN/TAZOBACTAM 3.375 GM in IV NORMAL SALINE 50ML 50 ML IV ×3 (06:21→12:26)
[2018-01-09] MEDS: HEPARIN PF for SUB-Q USE 5,000 UNIT/0.5 ML VIAL. SQ ×3 (06:28→20:59)
[2018-01-09] MEDS: IPRATRPIUM/ALBUTEROL 0.5/2.5MG 3 ML NEBU. NEB ×4 (06:49→19:15)
[2018-01-09 08:21] LABS: POC GLUCOSE 158 mg/dL (70-99)
[2018-01-09] MEDS: GABAPENTIN 100 MG CAPSULE. PO ×2 (09:03→20:50)
[2018-01-09] MEDS: LACTOBACILLUS RHAMNOSUS GG 1 CAPSULE. PO ×2 (09:03→20:51)
[2018-01-09] MEDS: FUROSEMIDE 40 MG TABLET. PO (09:03)
[2018-01-09] MEDS: ASPIRIN ENTERIC COATED 81 MG TABLET.DR. PO (09:03)
[2018-01-09] MEDS: PANTOPRAZOLE 40 MG TABLET.DR. PO (09:03)
[2018-01-09] MEDS: LINAGLIPTIN 5 MG TABLET PO (09:03)
[2018-01-09] MEDS: METOPROLOL TART IMMED RELEASE 50 MG TABLET. PO ×2 (09:03→20:50)
[2018-01-09] MEDS: DORZOLAMIDE 2% OPHTH SOLUTION 10ML BOTTLE. OU ×2 (09:04→20:48)
[2018-01-09] MEDS: INSULIN LISPRO 300 UNITS/3 ML INSULN.PEN. SQ ×6 (09:16→18:22)
[2018-01-09] MEDS: INSULIN GLARGINE 300 UNITS/3 ML INSULN.PEN. SQ ×2 (09:17→21:04)
[2018-01-09] MEDS: traMADol 50 MG TABLET PO (11:13)
[2018-01-09] MEDS ORDERED: POLYETHYLENE GLYCOL 3350 17 GM PACKET. PO (11:30)
[2018-01-09] MEDS ORDERED: MAGNESIUM HYDROXIDE 2,400 MG/30 ML ORAL.SUSP. PO (11:30)
[2018-01-09 12:21] LABS: POC GLUCOSE 281 mg/dL (70-99)
[2018-01-09 16:57] LABS: POC GLUCOSE 175 mg/dL (70-99)
[2018-01-09 20:49] LABS: POC GLUCOSE 162 mg/dL (70-99)
[2018-01-09] MEDS: NIACIN ER 500 MG TABLET.ER PO (20:49)
[2018-01-09] MEDS: LINEZOLID 600 MG TABLET PO (20:50)
[2018-01-09] MEDS: AMOXICILLIN/K CLAV 500/125MG TABLET. PO (20:50)
[2018-01-09] MEDS: ATORVASTATIN CALCIUM 20 MG TABLET PO (20:51)
[2018-01-09] MEDS: PRIMIDONE 50 MG TABLET PO (20:51)
[2018-01-09] MEDS: LATANOPROST 0.005% OPHTH SOLUTION 2.5ML BOTTLE. OU (20:58)
[2018-01-10] MEDS: HEPARIN PF for SUB-Q USE 5,000 UNIT/0.5 ML VIAL. SQ (06:00)
[2018-01-10] MEDS: IPRATRPIUM/ALBUTEROL 0.5/2.5MG 3 ML NEBU. NEB ×2 (07:08→11:16)
[2018-01-10 07:57] LABS: POC GLUCOSE 97 mg/dL (70-99)
[2018-01-10] MEDS: INSULIN LISPRO 300 UNITS/3 ML INSULN.PEN. SQ ×4 (08:00→12:15)
[2018-01-10] MEDS: AMOXICILLIN/K CLAV 500/125MG TABLET. PO (08:33)
[2018-01-10] MEDS: GABAPENTIN 100 MG CAPSULE. PO (08:33)
[2018-01-10] MEDS: ASPIRIN ENTERIC COATED 81 MG TABLET.DR. PO (08:33)
[2018-01-10] MEDS: PANTOPRAZOLE 40 MG TABLET.DR. PO (08:33)
[2018-01-10] MEDS: FUROSEMIDE 40 MG TABLET. PO (08:34)
[2018-01-10] MEDS: LACTOBACILLUS RHAMNOSUS GG 1 CAPSULE. PO (08:34)
[2018-01-10] MEDS: METOPROLOL TART IMMED RELEASE 50 MG TABLET. PO (08:34)
[2018-01-10] MEDS: LINAGLIPTIN 5 MG TABLET PO (08:34)
[2018-01-10] MEDS: LINEZOLID 600 MG TABLET PO (08:34)
[2018-01-10] MEDS: DORZOLAMIDE 2% OPHTH SOLUTION 10ML BOTTLE. OU (08:35)
[2018-01-10] MEDS: DOCUSATE SODIUM 100 MG CAPSULE. PO (09:00)
[2018-01-10 11:58] LABS: POC GLUCOSE 200 mg/dL (70-99)
[2018-01-10] MEDS: INSULIN GLARGINE 300 UNITS/3 ML INSULN.PEN. SQ (12:16)
== END 2018-01-10 14:00 | DRG 853 ==
LOC: 5 SOUTH 12:45
PROVIDERS: Internal Medicine
PROC: 0QBN0ZZ Excision of Right Metatarsal, Open Approach (ICD-10-PCS; principal; 2018-01-06 12:00)
PROC: 0JBR0ZZ Excision of Left Foot Subcutaneous Tissue and Fascia, Open Approach (ICD-10-PCS; 2018-01-06 12:00)
PROC: 0JBR0ZZ Excision of Left Foot Subcutaneous Tissue and Fascia, Open Approach (ICD-10-PCS; 2018-01-06 12:00)
DX: A41.9 Sepsis, unspecified organism (principal); E43 Unspecified severe protein-calorie malnutrition; L97.829 Non-pressure chronic ulcer of other part of left lower leg with unspecified severity; N17.9 Acute kidney failure, unspecified; L97.819 Non-pressure chronic ulcer of other part of right lower leg with unspecified severity; I50.32 Chronic diastolic (congestive) heart failure; I13.0 Hypertensive heart and chronic kidney disease with heart failure and stage 1 through stage 4 chronic kidney disease, or unspecified chronic kidney disease; Z68.41 Body mass index [BMI] 40.0-44.9, adult; L97.929 Non-pressure chronic ulcer of unspecified part of left lower leg with unspecified severity; E11.621 Type 2 diabetes mellitus with foot ulcer; E11.622 Type 2 diabetes mellitus with other skin ulcer; E11.51 Type 2 diabetes mellitus with diabetic peripheral angiopathy without gangrene; E11.22 Type 2 diabetes mellitus with diabetic chronic kidney disease; N18.3 Chronic kidney disease, stage 3 (moderate); I87.2 Venous insufficiency (chronic) (peripheral); L97.519 Non-pressure chronic ulcer of other part of right foot with unspecified severity; E11.40 Type 2 diabetes mellitus with diabetic neuropathy, unspecified; I25.10 Atherosclerotic heart disease of native coronary artery without angina pectoris; E78.5 Hyperlipidemia, unspecified; J44.9 Chronic obstructive pulmonary disease, unspecified; F03.90 Unspecified dementia, unspecified severity, without behavioral disturbance, psychotic disturbance, mood disturbance, and anxiety; K21.9 Gastro-esophageal reflux disease without esophagitis; D64.9 Anemia, unspecified; N40.0 Benign prostatic hyperplasia without lower urinary tract symptoms; H54.7 Unspecified visual loss; E11.65 Type 2 diabetes mellitus with hyperglycemia; E66.9 Obesity, unspecified; H40.9 Unspecified glaucoma; R56.9 Unspecified convulsions; I87.8 Other specified disorders of veins; Z79.4 Long term (current) use of insulin; I83.029 Varicose veins of left lower extremity with ulcer of unspecified site; I83.019 Varicose veins of right lower extremity with ulcer of unspecified site; Z90.49 Acquired absence of other specified parts of digestive tract; Z95.0 Presence of cardiac pacemaker; Z83.3 Family history of diabetes mellitus; Z82.49 Family history of ischemic heart disease and other diseases of the circulatory system; Z85.9 Personal history of malignant neoplasm, unspecified; I69.398 Other sequelae of cerebral infarction; Z87.891 Personal history of nicotine dependence; Z79.899 Other long term (current) drug therapy; Z79.82 Long term (current) use of aspirin; I50.9 Heart failure, unspecified
CPT/HCPCS: 36415; 73630; 80048; 80053; 82962; 83036; 85025; 85651; 87071; 87075; 87186; 93925; 94640; 94760; 97110-GO; 97116-GP; 97162-GP; 97166-GO; 97530-GO; 97530-GP; 97535-GO; J1100; J1815; J2001; J2020; J2370; J2405; J2543; J2704; J3010; J3370; J3490; J7040; J7120; J7620

== ENCOUNTER → 2018-01-03 | Outpatient (CLI) | payer MEDICARE, OTHER ==
[2017-10-03 15:00] VITALS: BP 122/80
[~2018-01-03] MED LIST changes: -SPIR25TA3 PO; +SPIR25TA5 PO
== END | disposition home or self-care (01) ==
LOC: PMGWOUND 10:38
PROVIDERS: ATTEND Preventive Medicine Undersea and Hyperbaric Medicine
DX: I87.313 Chronic venous hypertension (idiopathic) with ulcer of bilateral lower extremity (principal); E11.622 Type 2 diabetes mellitus with other skin ulcer; L97.221 Non-pressure chronic ulcer of left calf limited to breakdown of skin; L97.211 Non-pressure chronic ulcer of right calf limited to breakdown of skin; E11.621 Type 2 diabetes mellitus with foot ulcer; L97.511 Non-pressure chronic ulcer of other part of right foot limited to breakdown of skin; L97.521 Non-pressure chronic ulcer of other part of left foot limited to breakdown of skin; I25.10 Atherosclerotic heart disease of native coronary artery without angina pectoris; J44.9 Chronic obstructive pulmonary disease, unspecified; E11.22 Type 2 diabetes mellitus with diabetic chronic kidney disease; I13.2 Hypertensive heart and chronic kidney disease with heart failure and with stage 5 chronic kidney disease, or end stage renal disease; N18.6 End stage renal disease; I50.33 Acute on chronic diastolic (congestive) heart failure; E66.2 Morbid (severe) obesity with alveolar hypoventilation; G89.29 Other chronic pain; E78.5 Hyperlipidemia, unspecified; E11.42 Type 2 diabetes mellitus with diabetic polyneuropathy; E11.39 Type 2 diabetes mellitus with other diabetic ophthalmic complication; H40.9 Unspecified glaucoma; I48.2 Chronic atrial fibrillation; M19.90 Unspecified osteoarthritis, unspecified site; K21.9 Gastro-esophageal reflux disease without esophagitis; E78.00 Pure hypercholesterolemia, unspecified; F03.90 Unspecified dementia, unspecified severity, without behavioral disturbance, psychotic disturbance, mood disturbance, and anxiety; H54.62 Unqualified visual loss, left eye, normal vision right eye; Z85.46 Personal history of malignant neoplasm of prostate; Z95.5 Presence of coronary angioplasty implant and graft; Z95.810 Presence of automatic (implantable) cardiac defibrillator; Z95.1 Presence of aortocoronary bypass graft; Z86.73 Personal history of transient ischemic attack (TIA), and cerebral infarction without residual deficits; Z90.49 Acquired absence of other specified parts of digestive tract; Z87.891 Personal history of nicotine dependence; Z68.41 Body mass index [BMI] 40.0-44.9, adult; Z99.2 Dependence on renal dialysis; Z79.4 Long term (current) use of insulin
CPT/HCPCS: 11042; 97597

== ENCOUNTER → 2018-01-24 | Outpatient (CLI) | payer MEDICARE, OTHER ==
[~2018-01-24] MED LIST changes: -AMLO10TA2 PO; +AMLO10TA6 PO
[2018-01-30 11:00] VITALS: BP 123/60
== END | disposition home or self-care (01) ==
LOC: PMGWOUND 09:17 → EDSTATUS 14:35
PROVIDERS: ATTEND Preventive Medicine Undersea and Hyperbaric Medicine
DX: E11.621 Type 2 diabetes mellitus with foot ulcer (principal); I87.313 Chronic venous hypertension (idiopathic) with ulcer of bilateral lower extremity; L97.821 Non-pressure chronic ulcer of other part of left lower leg limited to breakdown of skin; L97.521 Non-pressure chronic ulcer of other part of left foot limited to breakdown of skin; L97.811 Non-pressure chronic ulcer of other part of right lower leg limited to breakdown of skin; L97.511 Non-pressure chronic ulcer of other part of right foot limited to breakdown of skin; I13.2 Hypertensive heart and chronic kidney disease with heart failure and with stage 5 chronic kidney disease, or end stage renal disease; E11.22 Type 2 diabetes mellitus with diabetic chronic kidney disease; N18.6 End stage renal disease; I50.33 Acute on chronic diastolic (congestive) heart failure; E11.42 Type 2 diabetes mellitus with diabetic polyneuropathy; E11.65 Type 2 diabetes mellitus with hyperglycemia; E11.51 Type 2 diabetes mellitus with diabetic peripheral angiopathy without gangrene; E11.39 Type 2 diabetes mellitus with other diabetic ophthalmic complication; H42 Glaucoma in diseases classified elsewhere; F03.90 Unspecified dementia, unspecified severity, without behavioral disturbance, psychotic disturbance, mood disturbance, and anxiety; I48.2 Chronic atrial fibrillation; E78.00 Pure hypercholesterolemia, unspecified; I25.10 Atherosclerotic heart disease of native coronary artery without angina pectoris; E66.9 Obesity, unspecified; J44.9 Chronic obstructive pulmonary disease, unspecified; K21.9 Gastro-esophageal reflux disease without esophagitis; E78.5 Hyperlipidemia, unspecified; M19.90 Unspecified osteoarthritis, unspecified site; H54.10 Blindness, one eye, low vision other eye, unspecified eyes; Z68.41 Body mass index [BMI] 40.0-44.9, adult; Z79.4 Long term (current) use of insulin; Z99.2 Dependence on renal dialysis; Z90.49 Acquired absence of other specified parts of digestive tract; Z79.82 Long term (current) use of aspirin; Z85.9 Personal history of malignant neoplasm, unspecified; Z86.73 Personal history of transient ischemic attack (TIA), and cerebral infarction without residual deficits; Z87.891 Personal history of nicotine dependence
CPT/HCPCS: 99215